=== PATIENT | female | born 1955 | race Caucasian/White ===

== ENCOUNTER 2021-07-08 10:52 | Inpatient (IN) | payer OTHER ==
[2021-07-08 11:29] LABS: Absolute Lymphocytes (CBC) 4.7 K/uL (0.7-4.9); Basophils % 0.1 % (0-1.3); Hematocrit 44.1 % (36.0-45.0); Lymphocytes % 40.1 % (15.3-44.8); MPV 8.9 fL (7.6-11.3); RBC Red Blood Cell Count 5.05 M/uL (3.86-4.86)
--- NOTE | 2021-07-08 11:31 | RAD REPORT ---
EXAM DESCRIPTION: CT - Ct Stroke Brain Wo Cont - 07/08/2021 11:06 am CLINICAL HISTORY: left sided weakness COMPARISON: HEAD BRAIN W O CONTRAST dated 02/27/2013; MRI BRAIN WITHOUT CONTRAST dated 02/28/2013 TECHNIQUE: Axial 5 millimeter thick images of the head were obtained without IV contrast. All CT scans are performed using dose optimization technique as appropriate and may include automated exposure control or mA/KV adjustment according to patient size. FINDINGS: No intracranial hemorrhage, mass, or cerebral edema. No acute cortical based infarction co nfirmed. In the midline right frontal lobe there is a 14 millimeter area of diminished attenuation at the falx. This may be a volume averaging affect. A similar finding was seen on 2013 imaging slightly smaller in size. This is not a location that would be expected to generate any motor sensory deficit . No extra-axial fluid collections. Blue matter-white matter differentiation is preserved.Atrophy ch anges are mild. Ventricles are in proportion to volume loss. Minimal scattered chronic ischemic leos es are evident. Arterial tree calcifications are present. Mastoid air cells are clear. There is a 13 millimeter sessile cyst, polyp or focal mucosal thickening along the floor of the right side sphenoid sinus. This has enlarged but is not new from 2013. Findings telephoned to Celestino Fitzpatrick 11:21 a.m. IMPRESSION: No intracranial hemorrhage is present. An acute cortical based infarction is not confirmed. A 14 millimeter area of diminished attenuation i n the medial right frontal lobe at the falx is probably not true ischemia. This location would not li honorio generate left motor sensory deficits. Ongoing concerns for acute CVA can be addressed with MR imaging or CT angio imaging.
[2021-07-08 11:33] LABS: Protime INR 1.02
--- NOTE | 2021-07-08 11:43 | RAD REPORT ---
EXAM DESCRIPTION: RAD - Chest Single View - 07/08/2021 11:18 am CLINICAL HISTORY: weakness, Stroke protocol chest film COMPARISON: February 2013 TECHNIQUE: AP portable chest image was obtained 07/08/2021 11:18 am . FINDINGS: Patchy alveolar opacities are present in the lateral mid upper left lung field. Chronic in terstitial pattern matches comparison. Failure and volume overload are not suspected. Heart and vasculature are normal. No measurable pleural effusion and no pneumothorax. No acute bony abnormality seen. No acute aortic findings suspected. IMPRESSION: Baseline chronic interstitial lung pattern with patchy airspace opacities in the lateral mid and upper left lung field. Pneumonia cannot be excluded and correlation is needed with any physical exam findings.
[2021-07-08 11:50] LABS: BUN Blood Urea Nitrogen 9 mg/dL (7-18); Bicarbonate 22 mmol/L (21-32); Creatine Phosphokinase 54 U/L (26-192); Glucose Level 119 mg/dL (74-106); Potassium 4.1 mmol/L (3.5-5.1); Sodium Level 142 mmol/L (136-145)
--- NOTE | 2021-07-08 12:36 | RAD REPORT ---
EXAM DESCRIPTION: CT - Head angio - 07/08/2021 12:19 pm CLINICAL HISTORY: left sided weakness TECHNIQUE: During dynamic enhancement using nonionic IV contrast, axial 1 millimeter thick images of the head were obtained. Sagittal and axial reconstruction images were generated using MIP technique and reviewed. All CT scans are performed using dose optimization technique as appropriate and may include automated exposure control or mA/KV adjustment according to patient size. COMPARISON: CT head same date FINDINGS: No aneurysm or vascular malformation identified. Major venous sinuses are patent. No stenosis, named branch occlusion, vasculitis or other significant vascular finding identifiable. I nternal carotid artery atherosclerotic calcifications are present without significant luminal narrowi ng. IMPRESSION: Negative CT angio head examination.
--- NOTE | 2021-07-08 12:38 | RAD REPORT ---
EXAM DESCRIPTION: CT - Neck Angio - 07/08/2021 12:19 pm CLINICAL HISTORY: left sided weakness TECHNIQUE: During dynamic enhancement using nonionic IV contrast, axial 2 mm thick images of the nec k were obtained. Sagittal and axial reconstruction images were generated using MIP technique and revi ewed. All CT scans are performed using dose optimization technique as appropriate and may include automated exposure control or mA/KV adjustment according to patient size. COMPARISON: CT head same date, CT angio head same date FINDINGS: Patient has an enlarged nodular thyroid gland not fully assessed on this CT angio study. No aneurysm or vascular malformation identified. No carotid or vertebral dissection. No aortic arch or great vessel origin abnormality seen. Vertebral artery origins unremarkable as well . No stenosis, vasculitis or other significant carotid artery finding. Left carotid bulb and proximal ICA calcifications do not cause luminal narrowing. Proximal left ICA is tortuous. No focal abnormali ty of either vertebral artery. Left vertebral artery is dominant. Basilar artery is normal. IMPRESSION: Negative CT angio neck examination for acute or significant finding.
[2021-07-08] MEDS ORDERED: ACETAMINOPHEN 325 MG TABLET ONE (13:56)
--- NOTE | 2021-07-08 14:07 | ER ---
Nurse's Notes [facility] Name: Maritza Jackson Age: 66 yrs Sex: Female : 1955 Arrival Date: 07/08/2021 Time: 10:55 Bed 15 Private MD: Diagnosis: Cerebral infarction, unspecified Presentation: 07/08 10:58 Chief complaint: Patient states: weakness since last night. currently only c/o numbness tr6 on left side. +drift noted EMS states: weakness on entire left side since last night. pt unsure what time due to power outage. Coronavirus screen: Vaccine status: Patient reports being unvaccinated. Ebola Screen: No symptoms or risks identified at this time. Initial Sepsis Screen: Does the patient meet any 2 criteria? No. Patient's initial sepsis screen is negative. Does the patient have a suspected source of infection? No. Patient's initial sepsis screen is negative. Risk Assessment: Do you want to hurt yourself or someone else? Patient reports no desire to harm self or others. Onset of symptoms was July 07, 2021. Care prior to arrival: None. Activity prior to arrival: None. 10:58 Method Of Arrival: EMS: [facility] tr6 10:58 Acuity: MAYA 2 tr6 Triage Assessment: 11:19 General: Appears in no apparent distress. comfortable, Behavior is calm, cooperative, tr6 appropriate for age. Pain: Denies pain. EENT: No deficits noted. Neuro: Level of Consciousness is awake, alert, obeys commands, Oriented to person, place, time, situation, Appropriate for age Metaphysician are weak on left Moves all extremities. Weakness in left hand(s) Speech is normal, Facial symmetry appears normal, Numbness in left hand, left arm and left leg Reports numbness in left side. Cardiovascular: No deficits noted. Respiratory: No deficits noted. GI: No deficits noted. : No deficits noted. Derm: No deficits noted. Musculoskeletal: Reports weakness in left side. Historical: - Home Meds: 11:02 losartan oral [Active]; Glimepiride Oral [Active]; tr6 - Immunization history:: Client reports having NOT received the Covid vaccine. Vaccine Information Sheet provided. - Social history:: Smoking status: unknown. Screenin:21 Abuse screen: Denies threats or abuse. Denies injuries from another. Nutritional tr6 screening: No deficits noted. Tuberculosis screening: No symptoms or risk factors identified. Fall Risk Fall in past 12 months (25 points). Assessment: 11:20 Reassessment: Patient appears in no apparent distress at this time. Patient is alert, aj2 oriented x 3, equal unlabored respirations, skin warm/dry/pink. Code Stroke called, patient transported to CT per protocol by music writer.. 11:32 Reassessment: Patient appears in no apparent distress at this time. Patient and/or aj2 family updated on plan of care and expected duration. Pain level reassessed. Patient is alert, oriented x 3, equal unlabored respirations, skin warm/dry/pink. Patient denies pain at this time. Patient states feeling better. General: Appears in no apparent distress. comfortable, obese. Pain: Denies pain. Neuro: No deficits noted. Level of Consciousness is awake, alert, obeys commands, Oriented to person, place, time, situation, Moves all extremities. Facial symmetry appears normal. Cardiovascular:. Cardiovascular: No deficits noted. Respiratory: Airway is patent. 12:09 Reassessment: Patient is alert, oriented x 3, equal unlabored respirations, skin aj2 warm/dry/pink. Reports JOHNSON 8/10; Celestino (provider notified), Reports taking anithypertensive and diabetes medication prior to arrival. nursing staff will continue to monitor.. General: Appears. 07/09 07:00 Reassessment: RECD REPORT FROM PIYUSH JO. 66YO WF P/W LEFT SIDED NUMBNESS. PT IS ER HOLD, bp SEE MEDITECH. Vital Signs: 07/08 10:58 BP 174 / 82; Pulse 90; Resp 18; Temp 97.6(O); Pulse Ox 96% on R/A; tr6 11:27 BP 119 / 70; Pulse 77; Resp 18; Weight 105.23 kg; Height 5 ft. 3 in. (160.02 cm); aj2 12:11 BP 102 / 54; Pulse 60; Resp 18; Temp 97.6; Pulse Ox 98% ; aj2 11:27 Body Mass Index 41.10 (105.23 kg, 160.02 cm) 2 NIH Stroke Scale Scores: 11:00 NIHSS Score: 6 tr6 14:23 NIHSS Score: 3 [facility] ED Course: 10:48 Initial lab(s) drawn, by me, sent to lab. Inserted saline lock: 20 gauge in right kj1 antecubital area, using aseptic technique. Blood collected. 10:55 Patient arrived in ED. tr6 10:56 Celestino Fitzpatrick PA is PHCP. [facility] 10:56 Joseph Villafana MD is Attending Physician. jmm 11:01 Triage completed. tr6 11:06 CT Stroke Brain w/o Contrast In Process Unspecified. EDMS 11:13 Deborah Lozano is Primary Nurse. aj2 11:18 Stroke CXR 1 View In Process Unspecified. EDMS 11:21 Patient has correct armband on for positive identification. Placed in gown. Bed in low tr6 position. Call light in reach. Side rails up X2. daughter at bedside. advertising columnist on. Pulse ox on. NIBP on. Diet: Patient is NPO. 11:32 No apparent distress. Laughing and speaking with daughter. aj2 11:32 No provider procedures requiring assistance completed. IV is patent, is intact. aj2 12:11 Arm band placed on. aj2 12:[address] In Process Unspecified. EDMS 12:19 CT Neck Angio In Process Unspecified. EDMS 14:06 Ross Mckeon MD is Hospitalizing Provider. [facility] 07/09 07:14 Primary Nurse role handed off by Deborah Lozano bp 07:14 Alexander Granados, RN is Primary Nurse. bp 07:23 Patient admitted, IV remains in place. bp Administered Medications: 07/08 13:29 Drug: Tylenol 650 mg Route: PO; aj2 15:30 Drug: Ativan (LORazepam) 0.5 mg Route: IVP; Site: right antecubital; aj2 Outcome: 14:06 Decision to Hospitalize by Provider. [facility] 07/09 07:23 Admitted to ER Hold. Please see [facility] for further documentation. bp Condition: stable Instructed on the need for admit. 15:43 Patient left the ED. bp NIH Stroke Scale - NIH Stroke Score Date: 07/08/2021 Time: 11:00 Total Score = 6 1a. Level of Consciousness (LOC) - 0(Alert) 1b. Level of Consciousness (LOC) (Month \T\ Age) - 0(Both) 1c. LOC Commands (Open \T\ Closes Eyes/Client Service Manager) - 0(Both) 2. Best Gaze (Lateral Gaze Paresis) - 0(Normal) 3. Visual Field Loss - 0(No visual loss) 4. Facial Palsy - 0(Normal) 5a. Left Arm: Motor (10-second hold) - 3(No effort against gravity) 5b. Right Arm: Motor (10-second hold) - 0(No drift) 6a. Left Leg: Motor (5-second hold - always test supine) - 2(Drift, some effort against gravity) 6b. Right Leg: Motor (5-second hold - always test supine) - 0(No drift) 7. Limb Ataxia (finger/nose \T\ heel/armstrong - test with eyes open) - 0(Absent) 8. Sensory Loss (pinprick arms/legs/face) - 1(Mild to moderate loss) 9. Best Language: Aphasia (description/naming/reading) - 0(No aphasia) 10. Dysarthria (speech clarity - read or repeat words) - 0(Normal) 11. Extinction and Inattention (visual/tactile/auditory/spatial/personal) - 0(No abnormality) Initials: tr6 NIH Stroke Scale - NIH Stroke Score Date: 07/08/2021 Time: 14:23 Total Score = 3 1a. Level of Consciousness (LOC) - 0(Alert) 1b. Level of Consciousness (LOC) (Month \T\ Age) - 0(Both) 1c. LOC Commands (Open \T\ Closes Eyes/Client Service Manager) - 0(Both) 2. Best Gaze (Lateral Gaze Paresis) - 0(Normal) 3. Visual Field Loss - 0(No visual loss) 4. Facial Palsy - 0(Normal) 5a. Left Arm: Motor (10-second hold) - 1(Drift) 5b. Right Arm: Motor (10-second hold) - 0(No drift) 6a. Left Leg: Motor (5-second hold - always test supine) - 1(Drift) 6b. Right Leg: Motor (5-second hold - always test supine) - 0(No drift) 7. Limb Ataxia (finger/nose \T\ heel/armstrong - test with eyes open) - 0(Absent) 8. Sensory Loss (pinprick arms/legs/face) - 1(Mild to moderate loss) 9. Best Language: Aphasia (description/naming/reading) - 0(No aphasia) 10. Dysarthria (speech clarity - read or repeat words) - 0(Normal) 11. Extinction and Inattention (visual/tactile/auditory/spatial/personal) - 0(No abnormality) Initials: petra Signatures: Dispatcher [employer] EDCelestino Alegria PA PA jmm Peltier, Brian, RN RN Lorie Mancia kj1 Leyda Dunbar RN RN tr6 Deborah Lozano aj2 Corrections: (The following items were deleted from the chart) 07/08 12:15 12:09 Reassessment: Patient is alert, oriented x 3, equal unlabored aj2 respirations, skin warm/dry/pink. Reports JOHNSON 06/01; Celestino (provider notified), nursing staff will continue to monitor.. aj2
--- NOTE | 2021-07-08 14:07 | EDPHYS ---
Physician Documentation [facility] Name: Maritza Jackson Age: 66 yrs Sex: Female : 1955 Arrival Date: 07/08/2021 Time: 10:55 Bed 15 Private MD: ED Physician Joseph Villafana HPI: 07/08 13:14 This 66 yrs old Female presents to ER via EMS with complaints of left sided jmm weakness. 13:14 The patient's problem is reported as weakness. Onset: The symptoms/episode jmm began/occurred acutely. 14:23 This is a 66-year-old female with history of diabetes mellitus and hypertension that jmm presents emerged department with complaints of left-sided weakness beginning around 7 PM last night. Symptoms initially began as some numbness around the left side of her chest and her left flank. This soon spread to the left arm and left leg. Patient denies any difficulty with speech, family states they have not appreciated any difficulty with speech. Patient denies chest pain but states having a slight headache.. Historical: - Home Meds: 11:02 losartan oral [Active]; Glimepiride Oral [Active]; tr6 - Immunization history:: Client reports having NOT received the Covid vaccine. Vaccine Information Sheet provided. - Social history:: Smoking status: unknown. ROS: 14:23 Constitutional: Negative for fever, chills, and weight loss, Cardiovascular: Negative jmm for chest pain, palpitations, and edema, Respiratory: Negative for shortness of breath, cough, wheezing, and pleuritic chest pain, Abdomen/GI: Negative for abdominal pain, nausea, vomiting, diarrhea, and constipation, Back: Negative for injury and pain, MS/Extremity: Negative for injury and deformity, Skin: Negative for injury, rash, and discoloration. 14:23 Neuro: Positive for numbness. 14:23 All other systems are negative. Exam: 14:23 Radiologist reports: Negative jmm 14:23 Constitutional: This is a well developed, well nourished patient who is awake, alert, and in no acute distress. Head/Face: atraumatic. Eyes: EOMI, no conjunctival erythema appreciated ENT: Moist Mucus Membranes Neck: Trachea midline, Supple Chest/axilla: Normal chest wall appearance and motion. Cardiovascular: Regular rate and rhythm. No edema appreciated Respiratory: Normal respirations, no respiratory distress appreciated Abdomen/GI: Non distended, soft Back: Normal ROM Skin: General appearance color normal MS/ Extremity: Moves all extremities, no obvious deformities appreciated, no edema noted to the lower extremities 14:23 Neuro: Orientation: is normal, Mentation: is normal, Memory: is normal. Vital Signs: 10:58 BP 174 / 82; Pulse 90; Resp 18; Temp 97.6(O); Pulse Ox 96% on R/A; tr6 11:27 BP 119 / 70; Pulse 77; Resp 18; Weight 105.23 kg; Height 5 ft. 3 in. (160.02 cm); aj2 12:11 BP 102 / 54; Pulse 60; Resp 18; Temp 97.6; Pulse Ox 98% ; aj2 11:27 Body Mass Index 41.10 (105.23 kg, 160.02 cm) 2 NIH Stroke Scale Scores: 11:00 NIHSS Score: 6 tr6 14:23 NIHSS Score: 3 [facility] MDM: 11:10 Patient medically screened. [facility] 14:02 Data reviewed: vital signs, nurses notes. Counseling: I had a detailed discussion with [facility] the patient and/or guardian regarding: the historical points, exam findings, and any diagnostic results supporting the discharge/admit diagnosis, lab results, radiology results, the need for further work-up and treatment in the hospital. ED course: I discussed the patient with Dr. Mckeon whom accepted the patient for admission. . 14:27 ED course: TPA was not administered due to prolonged period between symptom onset and [facility] patient arriving in the ER.. 07/08 10:57 Order name: Basic Metabolic Panel; Complete Time: 11:52 [facility] 07/08 10:57 Order name: CBC with Diff; Complete Time: 11:39 [facility] 07/08 10:57 Order name: CPK; Complete Time: 11:52 [facility] 07/08 10:57 Order name: Magnesium; Complete Time: 11:52 [facility] 07/08 10:57 Order name: Protime (+inr); Complete Time: 11:39 [facility] 07/08 10:57 Order name: Ptt, Activated; Complete Time: 11:39 [facility] 07/08 12:19 Order name: Glucose, Ancillary Testing [facility] 07/08 14:06 Order name: C-Reactive Protein; Complete Time: 14:41 EDMS 07/08 14:06 Order name: Ferritin; Complete Time: 14:41 EDMS 07/08 15:00 Order name: SARS-COV-2 RT PCR; Complete Time: 15:01 EDMS 07/08 20:58 Order name: Glucose, Ancillary Testing; Complete Time: 07:34 EDMS 07/09 03:31 Order name: CBC with Automated Diff; Complete Time: 07:34 EDMS 07/09 04:05 Order name: Comprehensive Metabolic Panel; Complete Time: 07:34 EDMS 07/08 10:57 Order name: CT Stroke Brain w/o Contrast; Complete Time: 11:39 [facility] 07/08 10:57 Order name: Stroke CXR 1 View; Complete Time: 11:45 [facility] 07/08 11:26 Order name: Head Angio CT; Complete Time: 13:01 [facility] 07/08 11:26 Order name: CT Neck Angio; Complete Time: 13:01 [facility] 07/08 13:18 Order name: MRI Stroke Protocol [facility] 07/08 14:07 Order name: Echo with Doppler [facility]OK 07/08 16:59 Order name: MRI; Complete Time: 16:59 EDMS 07/08 17:01 Order name: MRI; Complete Time: 17:01 EDMS 07/08 17:05 Order name: MRI; Complete Time: 17:06 EDMS 07/09 04:05 Order name: Lipid Profile; Complete Time: 07:34 EDMS 07/09 04:05 Order name: Magnesium; Complete Time: 07:34 EDMS 07/09 04:05 Order name: Thyroid Stimulating Hormone; Complete Time: 07:34 [facility] 07/09 08:29 Order name: US; Complete Time: 08:44 EDMS 07/09 12:43 Order name: Glucose, Ancillary Testing; Complete Time: 12:47 [facility] 07/08 10:57 Order name: EKG; Complete Time: 10:58 07/08 10:57 Order name: Accucheck; Complete Time: 12:07 [facility] 07/08 10:57 Order name: Cardiac monitoring; Complete Time: 11:36 07/08 10:57 Order name: EKG - Nurse/Tech; Complete Time: 11:37 07/08 10:57 Order name: IV Saline Lock; Complete Time: 11:36 jm07/08 10:57 Order name: Labs collected and sent; Complete Time: 11:36 [facility] 07/08 10:57 Order name: NPO; Complete Time: 12:07 [facility] 07/08 10:57 Order name: O2 Per Protocol; Complete Time: 14:01 [facility] 07/08 10:57 Order name: O2 Sat Monitoring; Complete Time: 14:01 [facility] 07/08 10:57 Order name: Stroke Swallow Screen; Complete Time: 14:01 [facility] 07/08 14:02 Order name: CONS Physician Consult EDMS Administered Medications: 13:29 Drug: Tylenol 650 mg Route: PO; aj2 15:30 Drug: Ativan (LORazepam) 0.5 mg Route: IVP; Site: right antecubital; aj2 Disposition: 07/09 16:34 Co-signature as Attending Physician, Joseph Villafana MD I agree with the assessment and kdr plan of care. Disposition Summary: 07/08/21 14:06 Hospitalization Ordered Hospitalization Status: Inpatient Admission [facility] Provider: Ross Mckeon Condition: Stable jmm Problem: new jmm Symptoms: are unchanged jm Bed/Room Type: Standard [facility] Location: Telemetry/MedSurg (Inpatient)(07/09/21 14:31) ja1 Room Assignment: [facility](07/09/21 14:31) ja Diagnosis - Cerebral infarction, unspecified [facility] Forms: - Medication Reconciliation Form jm - SBAR form [facility] NIH Stroke Scale - NIH Stroke Score Date: 07/08/2021 Time: 11:00 Total Score = 6 1a. Level of Consciousness (LOC) - 0(Alert) 1b. Level of Consciousness (LOC) (Month \T\ Age) - 0(Both) 1c. LOC Commands (Open \T\ Closes Eyes/Chipper Feeder) - 0(Both) 2. Best Gaze (Lateral Gaze Paresis) - 0(Normal) 3. Visual Field Loss - 0(No visual loss) 4. Facial Palsy - 0(Normal) 5a. Left Arm: Motor (10-second hold) - 3(No effort against gravity) 5b. Right Arm: Motor (10-second hold) - 0(No drift) 6a. Left Leg: Motor (5-second hold - always test supine) - 2(Drift, some effort against gravity) 6b. Right Leg: Motor (5-second hold - always test supine) - 0(No drift) 7. Limb Ataxia (finger/nose \T\ heel/armstrong - test with eyes open) - 0(Absent) 8. Sensory Loss (pinprick arms/legs/face) - 1(Mild to moderate loss) 9. Best Language: Aphasia (description/naming/reading) - 0(No aphasia) 10. Dysarthria (speech clarity - read or repeat words) - 0(Normal) 11. Extinction and Inattention (visual/tactile/auditory/spatial/personal) - 0(No abnormality) Initials: tr6 NIH Stroke Scale - NIH Stroke Score Date: 07/08/2021 Time: 14:23 Total Score = 3 1a. Level of Consciousness (LOC) - 0(Alert) 1b. Level of Consciousness (LOC) (Month \T\ Age) - 0(Both) 1c. LOC Commands (Open \T\ Closes Eyes/Chipper Feeder) - 0(Both) 2. Best Gaze (Lateral Gaze Paresis) - 0(Normal) 3. Visual Field Loss - 0(No visual loss) 4. Facial Palsy - 0(Normal) 5a. Left Arm: Motor (10-second hold) - 1(Drift) 5b. Right Arm: Motor (10-second hold) - 0(No drift) 6a. Left Leg: Motor (5-second hold - always test supine) - 1(Drift) 6b. Right Leg: Motor (5-second hold - always test supine) - 0(No drift) 7. Limb Ataxia (finger/nose \T\ heel/armstrong - test with eyes open) - 0(Absent) 8. Sensory Loss (pinprick arms/legs/face) - 1(Mild to moderate loss) 9. Best Language: Aphasia (description/naming/reading) - 0(No aphasia) 10. Dysarthria (speech clarity - read or repeat words) - 0(Normal) 11. Extinction and Inattention (visual/tactile/auditory/spatial/personal) - 0(No abnormality) Initials: petra Signatures: Dispatcher [employer] EDJoseph Cazares MD MD kdr Mickail, Joel, PA PA jmm Garcia, Cindy, RN RN cg Aguilar, Jose, RN RN ja1 Leyda Dunbar RN RN tr6 Deborah Lozano2 Corrections: (The following items were deleted from the chart) 07/08 13:54 13:17 CORONAVIRUS+MR.LAB.BRZ ordered. EDOK EDOK 22:40 14:06 Telemetry/MedSurg (Inpatient) [facility] 22:40 14:06 [facility] 07/09 14:31 07/08 22:40 [facility] ER [place] [id number] 07/09 14:31 07/08 22:40 [facility]
--- NOTE | 2021-07-08 14:14 | P.HP ---
Certification for Inpatient Patient admitted to: Observation With expected LOS: <2 Midnights Practitioner: I am a practitioner with admitting privileges, knowledge of patient current condition, hospital course, and medical plan of care. Services: Services provided to patient in accordance with Admission requirements found in Title 42 Section 412.3 of the Code of Federal Regulations Patient History Date of Service: 07/08/21 Reason for admission: Left-sided weakness, possible CVA History of Present Illness: 66-year-old female HTN, trw-gebyeaw-yexhwdydq diabetes mellitus type 2, prior TIA. Presents to ED with left upper and lower extremity numbness and weakness since 7 PM yesterday. Patient states she suddenly noticed numbness and weakness in these extremities, including her neck and chest/flank area. She reports just getting over COVID. She began to have symptoms diagnosed approximately 2 weeks ago. She otherwise denies any other numbness/tingling, no vision changes, no change in urinary/bowel habits, no incontinence. She does not feel like she has been having any difficulty swallowing or slurring of her speech, however she states her daughter said she was talking a little "slow" today. She does report some unsteadiness on her feet today. Work-up in the ED, including CT and CTA head are negative for any acute findings. ER provider has asked for admission for further evaluation. Allergies No Known Allergies Allergy (Unverified 02/27/13 21:09) Home Medications: Ciprofloxacin HCl [Cipro*] 500 mg PO BID #14 tab 02/28/13 metroNIDAZOLE [Flagyl*] 500 mg PO Q8H #30 tablet 12/25/13 - Past Medical/Surgical History -: HTN -: DM 2, [id number]-[id number]-fealikopj -: Prior TIA Past Surgical History: Patient denies surgical history - Family History Family History: Reviewed- Non-Contributory (Patient reports she has an orphan, does not know her family history) - Social History Smoking Status: Current every day smoker ([id number]) Alcohol use: No CD- Drugs: No Caffeine use: Yes Place of Residence: Home Review of Systems 10-point ROS is otherwise unremarkable Physical Examination - Studies Laboratory Data (last 24 hrs) 07/08/21 11:20: PT 11.7, INR 1.02, APTT 28.3 07/08/21 11:20: WBC 11.80 H, Hgb 14.7, Hct 44.1, Plt Count 417 H 07/08/21 11:20: Sodium 142, Potassium 4.1, BUN 9, Creatinine 0.59, Glucose 119 H, Magnesium 2.0 Assessment and Plan - Advance Directives Does patient have a Living Will: No Does patient have a Durable POA for Healthcare: No Physician Review Additional Text: Physical exam GEN: Alert, oriented x3, NAD HEENT: Normal conjunctiva, sclera anicteric CV: Regular rate and rhythm, no edema Pulm: Nonlabored respiration on room air ABD: Soft, nontender, nondistended MSK: No joint tenderness Integumentary: No rashes Neuro: Normal affect. Speech slightly slurred, LUE/LLE: 4/5. Significantly diminished sensation along left neck, left upper arm, left flank/thoracic wall, left upper thigh Problem list Acute onset left sided weakness and decreased sensation DM 2, zjx-fzjamsh-jxgfxhrzh prior TIA Hypertension Obesity Nicotine dependence CT, CTA negative for acute findings obtain MRI to rule out stroke Neurology consulted Continue with aspirin, Plavix, statin, folic acid at this time PT consulted Bedside swallow screen ordered, patient n.p.o. until she passes this Speech therapy consulted Monitor on telemetry Covid test pending Patient recently with Covid positive test, increasing risk for stroke Symptoms may be due to CVA versus complex migraine Code: full Dispo: anticipate dc home in 1-2 days. Time Spent Managing Pts Care (In Minutes): 60
[2021-07-08 14:39] LABS: C-Reactive Protein 18.8 mg/L (<3.00); Ferritin 385.4 ng/mL (8-388)
[2021-07-08] MEDS ORDERED: LORazepam 2 MG/ML VIAL ONE (15:57)
--- NOTE | 2021-07-08 16:58 | RAD REPORT ---
EXAM DESCRIPTION: MRI - Brain W/Wo Cont - 07/08/2021 4:50 pm CLINICAL HISTORY: left sided weakness COMPARISON: MRA Head Wo Cont dated 07/08/2021; MRI BRAIN WITHOUT CONTRAST dated 02/28/2013; MRA HEAD W O CONTRAST dated 02/27/2013; Head angio dated 07/08/2021; Ct Stroke Brain Wo Cont dated 07/08/2021 FINDINGS: Small acute infarcts in the cerebral hemisphere centered primarily in the right parietal l obe involving both cortical and subcortical locations with other small cortical foci of diffusion res tricted in the right frontal lobe. This is in a watershed type distribution. No significant white mat ter disease. No mass effect or midline shift. No hemorrhage is seen. Mucous retention cysts in the ri ght sphenoid sinus. No abnormal enhancement. Mild paranasal sinus thickening. IMPRESSION: Right cerebral hemisphere acute infarcts, predominantly right parietal lobe. There are s ome other small foci of diffusion restriction in the more anterior right frontal lobe. These are near the watershed regions.
--- NOTE | 2021-07-08 17:00 | RAD REPORT ---
EXAM DESCRIPTION: MRI - MRA Head Wo Cont - 07/08/2021 4:49 pm CLINICAL HISTORY: left sided weakness COMPARISON: MRI BRAIN WITHOUT CONTRAST dated 02/28/2013; MRA HEAD W O CONTRAST dated 02/27/2013 FINDINGS: No hemodynamically significant stenosis involving the [place] identified. The middle cerebral arteries are patent bilaterally. The anterior cerebral artery is are patent. The posterior circulation is intact. Eighty type left LOAN CONSULTANT is present. No aneurysm is seen. IMPRESSION: No flow limiting stenosis involving the [place] of [place]. No aneurysm.
--- NOTE | 2021-07-08 17:05 | RAD REPORT ---
EXAM DESCRIPTION: MRI - MRA Neck W/Wo Cont - 07/08/2021 4:49 pm CLINICAL HISTORY: left sided weakness COMPARISON: No comparisons FINDINGS: Question moderate to severe right proximal ICA stenosis. There is some artifact at the com mon carotid bifurcation on the right side. The left carotid system is widely patent. The vertebral ar teries are widely patent. The common carotid arteries are widely patent. IMPRESSION: Question moderate to severe right proximal ICA stenosis. This can be confirmed with thakkar tid ultrasound.
[2021-07-08] MEDS ORDERED: ONDANSETRON 4 MG/2 ML VIAL IV PRN (19:22)
[2021-07-08] MEDS: NA CHLORIDE 0.9% 1,000 ML IV SCH (19:22)
[2021-07-08] MEDS: INSULIN -REGULAR HUMAN 50 UNIT/0.5 ML ML SQ SCH ×2 (19:22→21:00)
[2021-07-08 20:40] VITALS: BMI 42.2
[2021-07-08] MEDS: ATORVASTATIN 20 MG TAB PO SCH (21:00)
[2021-07-08] MEDS ORDERED: ATORVASTATIN 20 MG TAB ONE (21:39)
[2021-07-08] MEDS ORDERED: NA CHLORIDE 0.9% 1,000 ML ONE (21:40)
[2021-07-08] MEDS ORDERED: ATORVASTATIN 10 MG TAB ONE (21:46)
[2021-07-09 03:24] LABS: Absolute Lymphocytes (CBC) 5.4 K/uL (0.7-4.9); Basophils % 1.2 % (0-1.3); Hematocrit 41.9 % (36.0-45.0); Lymphocytes % 42.8 % (15.3-44.8); MPV 9.5 fL (7.6-11.3)
[2021-07-09 04:05] LABS: ALT/SGPT 21 U/L (12-78); AST/SGOT 17 U/L (15-37); Albumin 2.7 g/dL (3.4-5.0); Alkaline Phosphatase 83 U/L (45-117); BUN Blood Urea Nitrogen 10 mg/dL (7-18); Bicarbonate 26 mmol/L (21-32); Bilirubin Total 0.6 mg/dL (0.2-1.0); Glucose Level 105 mg/dL (74-106); HDL Cholesterol 31 mg/dL (40-60); LDL Cholesterol, Calculated 65 (<130); Magnesium 2.2 mg/dL (1.8-2.4); Potassium 4.1 mmol/L (3.5-5.1); Protein, Total 6.7 g/dL (6.4-8.2); Sodium Level 144 mmol/L (136-145)
[2021-07-09] MEDS: INSULIN -REGULAR HUMAN 50 UNIT/0.5 ML ML SQ SCH ×4 (07:30→20:40)
--- NOTE | 2021-07-09 08:14 | EKG ---
Test Date: 2021-07-08 Test Time: 11:42:27 Dry House Attendant: STEFF MEASUREMENT RESULTS: Intervals: Rate: 73 [place]: 158 QRSD: 84 QT: 404 QTc: 445 [place]: P: 33 [place]: 158 QRS: 37 T: 31 INTERPRETIVE STATEMENTS: Normal sinus rhythm Normal ECG Compared to ECG 02/27/2013 21:02:53 No significant changes Electronically Signed On 07-09-21 08:12:59 CDT by Preet Tobin
--- NOTE | 2021-07-09 08:29 | RAD REPORT ---
EXAM DESCRIPTION: US - CP - 07/09/2021 12:40 am CLINICAL HISTORY: L sided weakness COMPARISON: MRA Neck W/Wo Cont dated 07/08/2021 TECHNIQUE: Real-time sonographic evaluation of bilateral carotid and vertebral systems was performed . Blue scale and Doppler interrogation were performed with waveform tracing bilaterally. FINDINGS: Exam is technically limited. Patient was unable to fully cooperate with the examination. Normal high resistance waveforms are noted in both external carotid arteries. The common carotid noah keith and internal carotid arteries show normal low resistance waveforms. Plaquing changes are identifiable in each carotid bulb without visual evidence for significant lumina l narrowing. Right external carotid atherosclerotic changes are present. Any external carotid artery stenosis is generally of no clinical significance. Peak systolic and end diastolic velocity values an d the ICA/CCA ratios are in the non-hemodynamically significant range. Antegrade flow seen in both vertebral arteries. Velocity values and ratios were recorded and are retained in the patient's imaging records. IMPRESSION: No significant atherosclerotic changes noted. No evidence of a hemodynamically significant stenosis.
[2021-07-09] MEDS: NA CHLORIDE 0.9% 1,000 ML IV SCH (08:42)
[2021-07-09] MEDS: CLOPIDOGREL 75 MG TABLET PO SCH (09:00)
[2021-07-09] MEDS ORDERED: NA CHLORIDE 0.9% 1,000 ML ONE (09:35)
[2021-07-09] MEDS ORDERED: CLOPIDOGREL 75 MG TABLET ONE (09:35)
--- NOTE | 2021-07-09 17:18 | P.PN ---
Subjective Date of Service: 07/09/21 Chief Complaint: Left-sided weakness, possible CVA Subjective: Improving (Feels slight improvement in weakness, working with physical therapy, has balance issues, scared of falling) Review of Systems 10-point ROS is otherwise unremarkable Physical Examination - Vital Signs Temperature: 98.2 F Blood Pressure: 150/85 Pulse: 61 Respirations: 22 Pulse Ox (%): 96 Assessment & Plan Physician Review Additional Text: Physical exam GEN: Alert, oriented x3, NAD HEENT: Normal conjunctiva, sclera anicteric CV: Regular rate and rhythm, no edema Pulm: Nonlabored respiration on room air ABD: Soft, nontender, nondistended Neuro: Normal affect. Speech slightly slurred, LUE/LLE: 4/5 strength. Significantly diminished sensation along left neck, left upper arm, left flank/thoracic wall, left upper thigh Problem list Acute onset left sided weakness and decreased sensation secondary to acute CVA DM 2, dfo-dwiewdw-qmyxsegmx prior TIA Hypertension Obesity Nicotine dependence CT, CTA negative for acute findings MRI consistent with acute CVA Neurology consulted Continue with aspirin, Plavix, statin, folic acid at this time PT consulted Speech therapy consulted Monitor on telemetry Patient seems like a good candidate for rehab, inpatient rehab consulted Code: full Dispo: inpatient rehab consulted, anticipate dc in 1-2 days Time Spent Managing Pts Care (In Minutes): 35
[2021-07-09] MEDS: ATORVASTATIN 20 MG TAB PO SCH (20:41)
--- NOTE | 2021-07-10 02:29 | CON ---
Reason For Consultation: Consultation called because of stroke. History Of Present Illness: Ms. Jackson is a 66-year-old right-handed patient with insulin-de pendent diabetes mellitus, prior transient ischemic attack, hypertension, and recent COVID-19 infecti on, who comes to [facility] with stroke-like symptoms. Two nights ago, she was at home, dev eloped sudden numbness in the left side of her body, face, arm, leg. This was in the evening around 7 p.m. She thought she was resting funny on that side, did not seek medical attention. She went to sleep, woke up the next morning and tried to walk and fell because the left leg gave away. At [facility], she had significant weakness in the left upper and lower extremity with numbness. Her NIH Stroke Scale was [address] scan showed no acute findings; however, brain MRI identified a right parietal lobe stroke with some involvement of the right frontal lobe watershed area. The MRA suggested moderate stenosis in the right proximal internal carotid artery; however, the carotid Dopp ler study did not support that and CT angiogram also did not support the vascular finding. Since her hospitalization, the patient has noted some fxjy-lq-[id number] improvement in the left-sided strength. There is persistent numbness in the left face, arm, leg and there is more weakness in the left arm than leg and there is also slight weakness on the left face. Past Medical History: As noted. Allergies: NO KNOWN DRUG ALLERGIES. Medications: At home, ciprofloxacin 500 mg twice daily, metronidazole 500 mg every 8 hours. She is not on anticoagulation and had COVID-19 symptoms beginning on May 23 or May 24. Family History: Not known. Social History: Patient smokes with a [id number] history of smoking and drinks caffeinated Giraffe Friend es. Denies alcohol or IV drug use. Surgical History: No surgical history. Review of Systems: As noted, she had COVID recently. Otherwise, no recent fevers, chills, nausea, vomiting, myalgias, a rthralgias, rash, headache, weight change. No active psychiatric issues. No gastrointestinal, genit ourinary issues and no other positives other than stated in 10-point systems review. Physical Examination: Vital Signs: Blood pressure 150/85, up to 170 systolic; respiratory rate 16 to 20; pulse 60 to 70; t emperature max 99.4; oxygen saturation 94% on room air. Weight 231 pounds, height 5 feet 2 inches, B [place] 42.3. General: Ms. Jackson is lying comfortably in bed in the emergency room. She is in no acute distress. HEENT: She is normocephalic, atraumatic. Sclerae anicteric. Oropharynx is moist and pink. Neck: Supple. Chest: Clear. Heart: Regular. Extremities: Show no edema, cyanosis, or clubbing. Neurologic: She is alert and oriented to situation, place, and person. She has no expressive or rec eptive aphasias. Cranial nerves remarkable for subtle decrease in the left nasolabial fold with good excursions. Decreased light touch and temperature in the left face compared to the right face, othe rwise intact. Tongue midline and palate midline. Motor examination: Her left upper extremity is 4/ 5 proximally and distally. Right upper extremity 5/5. Left lower extremity 5-/5 proximally and dist ally, right 5/5. Sensory examination: Her left upper and lower extremity decreased to light touch a nd temperature compared to the right upper and lower extremity. Coordination intact in the right and left upper and lower extremities. Reflexes symmetric in the upper and lower extremities. NIH strok e scale is 6. With ambulation, she tends to drift to the left and requires moderate assistance. Laboratory Studies: White blood cell count slightly elevated to 12.6 with neutrophils 39.3%. Coagul ation panel is normal. Chemistries are unremarkable except for slightly elevated chloride of 115, gl ucose ranged from 80 to 199, albumin 2.7. HDL cholesterol 31, LDL cholesterol 65. TSH 2.070. She i s COVID-19 positive. Assessment: Ms. Jackson is a 66-year-old patient with multiple reasons for stroke including COVID posi tivity, being off any anticoagulation, hypertension, diabetes mellitus, also class 2 obesity, and she has proven stroke on MRI of the brain and right subcortical stroke with left-sided weakness, numbnes s, and incoordination. Plan: Admit patient to inpatient rehabilitation unit. She has already been cleared for her swallow by Speech, but she should still continue with Speech to help regain full functioning in the oropharyn x, and with Speech, she needs Physical Therapy to help with her balance, coordination, gait, and endu kallie, and Occupational Therapy to help with improving and restoring activities of daily living inclu ding upper and lower body dressing, bathing and other activities. She will have her blood sugar management addressed carefully and hypertension managed as well. Her c holesterol panel shows a good LDL, which is less than 70. The patient as noted will be admitted to i npatient rehabilitation unit for aggressive therapy. SEAMUS/JEANNETTE Voice ID: [id number] Report ID: [id number]
--- NOTE | 2021-07-10 06:20 | P.PN ---
Subjective Date of Service: 07/10/21 Chief Complaint: Left-sided weakness, possible CVA Subjective: Improving (Feels like she has had some slight improvement of her weakness, still very unsteady on her feet. Still continues with decreased sensation. Eating/drinking without difficulty) Review of Systems 10-point ROS is otherwise unremarkable Physical Examination - Vital Signs Temperature: 98.7 F Blood Pressure: 138/62 Pulse: 79 Respirations: 20 Pulse Ox (%): 95 Assessment & Plan Physician Review Additional Text: Physical exam GEN: Alert, oriented x3, NAD HEENT: Normal conjunctiva, sclera anicteric CV: Regular rate and rhythm, no edema Pulm: Nonlabored respiration on room air ABD: Soft, nontender, nondistended Neuro: Normal affect. LUE/LLE: 5-/5 strength. Decreased sensation to light touch in the lower left jaw/neck area. Decreased sensation to light touch in her left upper and lower extremity, left chest/left flank area Significantly diminished sensation along left neck, left upper arm, left flank/thoracic wall, left upper thigh Problem list Acute onset left sided weakness and decreased sensation secondary to acute CVA DM 2, zqf-pwwefmc-iwafufsyv prior TIA Hypertension Obesity Nicotine dependence CT, CTA negative for acute findings MRI consistent with acute CVA Neurology consulted Continue with aspirin, Plavix, statin, folic acid at this time PT consulted Speech therapy consulted - pt did well Monitor on telemetry - no events so far PT recommends patient for inpatient rehab, patient would like to pursue inpatient rehab as well director of therapy services consulted Code: full Dispo: Hopeful to get insurance approval for inpatient rehab Time Spent Managing Pts Care (In Minutes): 35
[2021-07-10 06:47] LABS: Hematocrit 41.3 % (36.0-45.0); MPV 8.6 fL (7.6-11.3); RBC Red Blood Cell Count 4.75 M/uL (3.86-4.86)
[2021-07-10 07:07] LABS: BUN Blood Urea Nitrogen 9 mg/dL (7-18); Bicarbonate 26 mmol/L (21-32); Glucose Level 128 mg/dL (74-106); Potassium 3.9 mmol/L (3.5-5.1); Sodium Level 143 mmol/L (136-145)
[2021-07-10] MEDS: INSULIN -REGULAR HUMAN 50 UNIT/0.5 ML ML SQ SCH ×4 (07:30→20:17)
[2021-07-10] MEDS: CLOPIDOGREL 75 MG TABLET PO SCH (08:17)
[2021-07-10] MEDS: FOLIC ACID 1 MG TABLET PO SCH (08:17)
[2021-07-10] MEDS: ASPIRIN EC 81 MG TAB PO SCH (08:17)
[2021-07-10] MEDS: ATORVASTATIN 20 MG TAB PO SCH (20:17)
[2021-07-10] MEDS ORDERED: HYDRALAZINE HCL 20 MG/ML VIAL IV PRN (21:14)
[2021-07-11 05:07] LABS: BUN Blood Urea Nitrogen 7 mg/dL (7-18); Bicarbonate 26 mmol/L (21-32); Glucose Level 135 mg/dL (74-106); Magnesium 1.9 mg/dL (1.8-2.4); Potassium 3.6 mmol/L (3.5-5.1); Sodium Level 142 mmol/L (136-145)
--- NOTE | 2021-07-11 06:16 | P.PN ---
Subjective Date of Service: 07/11/21 Chief Complaint: Left-sided weakness, possible CVA Subjective: Improving (feels strenght is slightly improving. more sensation to left lower face as well, no new complaints) Review of Systems 10-point ROS is otherwise unremarkable Physical Examination - Vital Signs Temperature: 97.9 F Blood Pressure: 138/61 Pulse: 89 Respirations: 20 Pulse Ox (%): 95 Assessment & Plan Physician Review Additional Text: Physical exam GEN: Alert, oriented x3, NAD CV: Regular rate and rhythm, no edema Pulm: Nonlabored respiration on room air ABD: Soft, nontender, nondistended Neuro: Normal affect. LUE: 5-/5, LLE: 4+/5 with some incoordination Decreased sensation to light touch in the lower left jaw/neck area. Decreased sensation to light touch in her left upper and lower extremity, left chest/left flank area Problem list Acute onset left sided weakness and decreased sensation secondary to acute CVA DM 2, yja-cekrjxc-cfikvqvpv prior TIA Hypertension Obesity Nicotine dependence recent COVID-[address], CTA negative for acute findings MRI consistent with acute CVA Neurology consulted Continue with aspirin, Plavix, statin, folic acid at this time PT consulted Speech therapy consulted - pt did well Monitor on telemetry - no events so far PT recommends patient for inpatient rehab, patient would like to pursue inpatient rehab as well dean of student services consulted patient otherwise asymptomatic from COVID-19 Code: full Dispo: dc to inpatient rehab, pending insurance approval Time Spent Managing Pts Care (In Minutes): 35
[2021-07-11] MEDS: INSULIN -REGULAR HUMAN 50 UNIT/0.5 ML ML SQ SCH ×4 (07:30→20:02)
[2021-07-11] MEDS ORDERED: POTASSIUM CL SA 10 MEQ TAB PO ONE (08:00)
[2021-07-11] MEDS: FOLIC ACID 1 MG TABLET PO SCH (08:34)
[2021-07-11] MEDS: CLOPIDOGREL 75 MG TABLET PO SCH (08:35)
[2021-07-11] MEDS: ASPIRIN EC 81 MG TAB PO SCH (08:36)
[2021-07-11] MEDS: ATORVASTATIN 20 MG TAB PO SCH (19:53)
[2021-07-12 06:31] LABS: Hematocrit 41.4 % (36.0-45.0); MPV 9.2 fL (7.6-11.3); RBC Red Blood Cell Count 4.74 M/uL (3.86-4.86)
[2021-07-12 07:05] LABS: BUN Blood Urea Nitrogen 10 mg/dL (7-18); Bicarbonate 25 mmol/L (21-32); Glucose Level 135 mg/dL (74-106); Magnesium 2.1 mg/dL (1.8-2.4); Potassium 3.8 mmol/L (3.5-5.1); Sodium Level 141 mmol/L (136-145)
[2021-07-12] MEDS: INSULIN -REGULAR HUMAN 50 UNIT/0.5 ML ML SQ SCH ×2 (07:30→12:11)
--- NOTE | 2021-07-12 08:18 | ECHO ---
HEIGHT: 5 ft 2 in WEIGHT: 231 lb 0 oz DATE OF STUDY: 07/09/[address]: Ross Mckeon MD 2-DIMENSIONAL: YES M.MODE: YES DOPPLER: YES COLOR FLOW: YES TDS: YES PORTABLE: NO DEFINITY: NO BUBBLE STUDY: NO DIAGNOSIS: STROKE CARDIAC HISTORY: CATHERIZATION: NO SURGERY: NO PROSTHETIC VALVE: NO PACEMAKER: NO MEASUREMENTS (cm) DIASTOLIC (NORMALS) SYSTOLIC (NORMALS) IVSd 1.3 (0.6-1.2) LA Diam 3.0 (1.9-4.0) LVEF 59% LVIDd 4.0 (3.5-5.7) LVIDs 2.7 (2.0-3.5) %FS 31% LVPWd 1.3 (0.6-1.2) Ao Diam 2.8 (2.0-3.7) 2 DIMENSIONAL ASSESSMENT: RIGHT ATRIUM: NORMAL LEFT ATRIUM: NORMAL RIGHT VENTRICLE: NORMAL LEFT VENTRICLE: NORMAL TRICUSPID VALVE: NORMAL MITRAL VALVE: NORMAL PULMONIC VALVE: NORMAL AORTIC VALVE: NORMAL PERICARDIAL EFFUSION: NONE AORTIC ROOT: NORMAL LEFT VENTRICULAR WALL MOTION: NORMAL DOPPLER/COLOR FLOW: NORMAL COMMENTS: TECHNICALLY DIFFICULT STUDY. GROSSLY NORMAL LEFT VENTRICULAR EJECTION FRACTION AND SIZE. NO WALL MOTION ABNORMALITY. NO THROMBUS. NO EFFUSION. NO VEGETATION. TECHNOLOGIST: Joceline GRESHAM
[2021-07-12] MEDS ORDERED: POTASSIUM 25 MEQ EFFERV TAB PO ONE (08:35)
[2021-07-12] MEDS: ASPIRIN EC 81 MG TAB PO SCH (09:13)
[2021-07-12] MEDS: FOLIC ACID 1 MG TABLET PO SCH (09:13)
[2021-07-12] MEDS: CLOPIDOGREL 75 MG TABLET PO SCH (09:13)
[2021-07-12 09:36] VITALS: O2SAT 94
[2021-07-12 13:17] VITALS: BP 100/57; TEMP 98.3
--- NOTE | 2021-07-12 18:07 | P.DS ---
Admission Date: 07/08/21 Discharge Date: 07/12/21 Disposition: TRANSFER TO INPATIENT REHAB Discharge Condition: GOOD Reason for Admission: Left-sided weakness, possible CVA Consultations: Neurology - Dr. Deng Procedures: CXR (07/08): IMPRESSION: Baseline chronic interstitial lung pattern with patchy airspace opacities in the lateral mid and upper left lung field. Pneumonia cannot be excluded and correlation is needed with any physical exam findings. CT Brain (07/08): IMPRESSION: No intracranial hemorrhage is present. An acute cortical based infarction is not confirmed. A 14 millimeter area of diminished attenuation in the medial right frontal lobe at the falx is probably not true ischemia. This location would not likely generate left motor sensory deficits. Ongoing concerns for acute CVA can be addressed with MR imaging or CT angio imaging. CTA Head (07/08): FINDINGS: No aneurysm or vascular malformation identified. Major venous sinuses are patent. No stenosis, named branch occlusion, vasculitis or other significant vascular finding identifiable. Internal carotid artery atherosclerotic calcifications are present without significant luminal narrowing. IMPRESSION: Negative CT angio head examination. CTA Neck (07/08): FINDINGS: Patient has an enlarged nodular thyroid gland not fully assessed on this CT angio study. No aneurysm or vascular malformation identified. No carotid or vertebral dissection. No aortic arch or great vessel origin abnormality seen. Vertebral artery origins unremarkable as well. No stenosis, vasculitis or other significant carotid artery finding. Left carotid bulb and proximal ICA calcifications do not cause luminal narrowing. Proximal left ICA is tortuous. No focal abnormality of either vertebral artery. Left vertebral artery is dominant. Basilar artery is normal. IMPRESSION: Negative CT angio neck examination for acute or significant finding. MRI Brain (07/08): FINDINGS: Small acute infarcts in the cerebral hemisphere centered primarily in the right parietal lobe involving both cortical and subcortical locations with other small cortical foci of diffusion restricted in the right frontal lobe. This is in a watershed type distribution. No significant white matter disease. No mass effect or midline shift. No hemorrhage is seen. Mucous retention cysts in the right sphenoid sinus. No abnormal enhancement. Mild paranasal sinus thickening. IMPRESSION: Right cerebral hemisphere acute infarcts, predominantly right p arietal lobe. There are some other small foci of diffusion restriction in the more anterior right frontal lobe. These are near the watershed regions. MRA Brain (07/08): FINDINGS: No hemodynamically significant stenosis involving the [place] identified. The middle cerebral arteries are patent bilaterally. The anterior cerebral artery is are patent. The posterior circulation is intact. Eighty type left TAXATION ECONOMIST is present. No aneurysm is seen. IMPRESSION: No flow limiting stenosis involving the [place]. No aneurysm. MRA Neck (07/08): FINDINGS: Question moderate to severe right proximal ICA stenosis. There is some artifact at the common carotid bifurcation on the right side. The left carotid system is widely patent. The vertebral arteries are widely patent. The common carotid arteries are widely patent. IMPRESSION: Question moderate to severe right proximal ICA stenosis. This can be confirmed with carotid ultrasound. Carotid U/S (07/08): FINDINGS: Exam is technically limited. Patient was unable to fully cooperate with the examination. Normal high resistance waveforms are noted in both external carotid arteries. The common carotid arteries and internal carotid arteries show normal low resistance waveforms. Plaquing changes are identifiable in each carotid bulb without visual evidence for significant luminal narrowing. Right external carotid atherosclerotic changes are present. Any external carotid artery stenosis is generally of no clinical significance. Peak systolic and end diastolic velocity values and the ICA/CCA ratios are in the non-hemodynamically significant range. Antegrade flow seen in both vertebral arteries. Velocity values and ratios were recorded and are retained in the patient's imaging records. IMPRESSION: No significant atherosclerotic changes noted. No evidence of a hemodynamically significant stenosis. Echo (07/09): Technically difficult study. Grossly normal LVEF: 59% and size. no wall motion abnormality. no thrombus. no effusion. no vegetation. Problem list Acute onset left sided weakness and decreased sensation secondary to acute CVA DM 2, [id number]-[id number] prior TIA Hypertension Obesity Nicotine dependence recent COVID-19 infection Brief History of Present Illness: 66-year-old female HTN, [id number] diabetes mellitus type 2, prior TIA. Presents to ED with left upper and lower extremity numbness and weakness since 7 PM yesterday. Patient states she suddenly noticed numbness and weakness in these extremities, including her neck and chest/flank area. She reports just getting over COVID. She began to have symptoms diagnosed approximately 2 weeks ago. She otherwise denies any other numbness/tingling, no vision changes, no change in urinary/bowel habits, no incontinence. She does not feel like she has been having any difficulty swallowing or slurring of her speech, however she states her daughter said she was talking a little "slow" today. She does report some unsteadiness on her feet today. Work-up in the ED, including CT and CTA head are negative for any acute findings. ER provider has asked for admission for further evaluation. Hospital Course: Found to have acute CVAs explaining her new onset left-sided weakness and decreased sensation. She was started on aspirin, plavix, statin, and folic acid. She had some slight improvement in her deficits. PT evaluated the patient and recommended inpatient rehab. Patient was transferred to inpatient rehab once authorization was obtained. She had low-normal blood pressure during her hospitalization and her losartan was held and discontinued on discharge. She should continue to monitor her blood pressure, f/u with PCP, and will likely need to restart in the near future. F/u with PCP in 3-5 days. F/u with Dr. Deng, Neurology, in a few weeks. Vital Signs/Physical Exam: Physical exam GEN: Alert, oriented x3, NAD CV: Regular rate and rhythm, no edema Pulm: Nonlabored respiration on room air ABD: Soft, nontender, nondistended Neuro: Normal affect. LUE: 5-/5, LLE: 4+/5 with some incoordination Decreased sensation to light touch in the lower left jaw/neck area. Decreased sensation to light touch in her left upper and lower extremity, left chest/left flank area Temp Pulse Resp BP Pulse Ox 98.3 F 80 18 100/57 L 94 07/12/21 12:00 07/12/21 12:00 07/12/21 12:00 07/12/21 12:00 07/12/21 12:00 Laboratory Data at Discharge: WBC 14.30 K/uL (4.3-10.9) H D 07/12/21 05:40 Hgb 13.9 g/dL (12.0-15.0) 07/12/21 05:40 Hct 41.4 % (36.0-45.0) 07/12/21 05:40 Plt Count 464 K/uL (152-406) H 07/12/21 05:40 PT 11.7 SECONDS (9.5-12.5) 07/08/21 11:20 INR 1.02 07/08/21 11:20 APTT 28.3 SECONDS (24.3-36.9) 07/08/21 11:20 Sodium 141 mmol/L (136-145) 07/12/21 05:40 Potassium 3.8 mmol/L (3.5-5.1) 07/12/21 05:40 BUN 10 mg/dL (7-18) 07/12/21 05:40 Creatinine 0.55 mg/dL (0.55-1.3) 07/12/21 05:40 Glucose 135 mg/dL (74-106) H 07/12/21 05:40 Magnesium 2.1 mg/dL (1.8-2.4) 07/12/21 05:40 Total Bilirubin 0.6 mg/dL (0.2-1.0) 07/09/21 02:34 AST 17 U/L (15-37) 07/09/21 02:34 ALT 21 U/L (12-78) 07/09/21 02:34 Alkaline Phosphatase 83 U/L (45-117) 07/09/21 02:34 Triglycerides 145 mg/dL (<150) 07/09/21 02:34 Cholesterol 125 mg/dL (<200) 07/09/21 02:34 HDL Cholesterol 31 mg/dL (40-60) L 07/09/21 02:34 Cholesterol/HDL Ratio 4.03 07/09/21 02:34 Home Medications: RX: Glimepiride 1 mg PO DAILY 07/09/21 RX: Metformin HCl [Metformin ER Gastric] 1,000 mg PO DAILY 07/09/21 RX: Atorvastatin Calcium [Lipitor*] 40 mg PO BEDTIME tab 07/12/21 RX: Clopidogrel Bisulfate [Plavix*] 75 mg PO DAILY tablet 07/12/21 Physician Discharge Instructions: You are found to have left-sided weakness and numbness of your body. You underwent extensive work-up and MRI revealed that you had small strokes in the right cerebral hemisphere, predominantly your right parietal lobe. You had some slight improvement in your strength, but were still very unsteady with ambulation. Physical therapy was consulted, and after discussion, was felt that you would benefit the most with aggressive physical therapy in an inpatient rehab setting. You are discharged to an inpatient rehab facility. You are prescribed aspirin 81 mg daily, Plavix, atorvastatin, and folic acid to continue to take for your stroke. You remained asymptomatic from your recent COVID-19 infection. You did not require any oxygen supplementation or other treatment. Right cerebral hemisphere acute infarcts, predominantly right parietal lobe. There are some other small foci of diffusion restriction in the more anterior right frontal lobe. These are near the watershed regions. Your blood pressure was within the normal range, and your losartan was held. Recommend to continue not taking this medication until instructed by your physician. Will need to restart if your blood pressure becomes high again. As we discussed, recommend tobacco cessation. You have done well in the hospital, and I hope you continue this upon discharge. Diet: AHA Activity: Fall precautions Followup: Kurt Deng MD [ASSOCIATE-ACTIVE - CAN ADMIT] - NONE,NONE [Primary Care Provider] - Time spent managing pt's care (in minutes): 45
== END 2021-07-12 17:47 | DRG 64 ==
LOC: ER 10:52 → ERHOLD 14:01 → OBSVTOIN 17:04 → 4TH 07-09 15:30
PROVIDERS: ADMIT Hospitalist; ATTEND Hospitalist
DX: I63.9 Cerebral infarction, unspecified (principal); U07.1 COVID-19; G81.94 Hemiplegia, unspecified affecting left nondominant side; Z68.41 Body mass index [BMI] 40.0-44.9, adult; R20.9 Unspecified disturbances of skin sensation; R29.706 NIHSS score 6; I10 Essential (primary) hypertension; E11.9 Type 2 diabetes mellitus without complications; E66.9 Obesity, unspecified; F17.210 Nicotine dependence, cigarettes, uncomplicated; Z86.73 Personal history of transient ischemic attack (TIA), and cerebral infarction without residual deficits
CPT/HCPCS: 36415; 70450; 70496; 70498; 70544; 70549; 70553; 71045; 80048; 80053; 80061; 82550; 82728; 82947; 83735; 84443; 85025; 85027; 85610; 85730; 86140; 93005; 93306; 93880; 94760; 96374; 97116; 97161; 97530; 99285; A9577; G0378; J0360; J7030; Q9967; U0003

== ENCOUNTER 2021-07-12 09:33 | Inpatient (IN) | payer OTHER ==
--- NOTE | 2021-07-12 11:48 | R.PREADM ---
PRE-ADMISSION SCREENING FORM SCREENING DATE AND TIME 07/12/2021 08:41 (CDT) ANTICIPATED REHAB ADMISSION DATE 07/14/2021 REFERRING FACILITY [facility] REFERRAL DATE AND TIME 07/09/2021 08:41 (CDT) REFERRAL ROOM# 412 ACUTE ADMIT DATE 07/08/2021 Previous Rehabilitation(s): No. 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 LEDEZMA REFERRING PHYSICIAN TORI SEWELL MD REHAB FACILITY [facility] CLINICAL LIAISON Anand Ball PHYSICIAN REVIEWER Dr. Kurt Deng M.D. MR# [id number] NAME RANJEET JACKSON ADDRESS [address] PHONE [facility] [address] DATE OF 1955 AGE 66 SSN# [id number] GENDER female MARITAL STATUS Single (Never ) PREF. LANGUAGE (IF NON-POLISH) Indonesian ADMIT FROM 02 - [facility] PRE-HOSPITAL LIVING SETTING 01 - Home (private home/apt. board/care, assisted living, long-term, transitional living) HOME TYPE AND DETAILS Type of home: single family house # of steps within the residence: 0 # of levels in the residence: 1 # of steps to enter the residence: 3 PRE-HOSPITAL LIVING WITH Family/Relatives FAMILY SUPPORT Yes PRIMARY FAMILY CONTACT NAME GINNY LEWIS PRIMARY FAMILY CONTACT PHONE PRIMARY FAMILY CONTACT RELATIONSHIP DAUGHTER PHONE PRIMARY FAMILY CONTACT ON ADM.? no IS PRIMARY FAMILY CONTACT AUTH. REP.? no 1ST EMERGENCY CONTACT GINNY LEWIS 1ST CONTACT PHONE 1ST CONTACT RELATIONSHIP DAUGHTER PHONE 1ST CONTACT ON ADM. no IS 1ST CONTACT AUTH. REP.? no PHONE 2ND CONTACT ON ADM.? no PATIENT EMPLOYMENT STATUS Retired (for age) PATIENT EMPLOYER No Employer PAYOR INFORMATION: 1ST PAYOR NAME [employer] 1ST PAYOR PHONE 1ST PAYOR CONTACT JESE Henderson 1ST PAYOR INJURY/ILLNESS DUE TO ACCIDENT? No ANOTHER GREEN PARTY RESPONSIBLE? No PRIMARY REHAB/ACUTE DIAGNOSIS: ACUTE CVA ONSET DATE 07/08/2021 REHAB IMPAIRMENT CATEGORY (DWAIN): 01 Stroke (STR) MEETS 60% rule AFFECTED EXTREMITIES: LLE, and LUE PRIMARY DIAGNOSIS-RELATED SURGERIES: N/A RISK FOR COMPLICATIONS: - N/A POST COVID-19 HTN [id number] DIABETES MELLITUS TYPE 2 PRIOR TIA SUMMARY OF ACUTE HOSPITALIZATION: Pt. is a 66 yo Right-handed white female. On 07/08/2021 Pt. presented to [facility] with sudden onset of left-side weakness. On 07/08/2021 she was admitted to [facility] with diagnosis ACUTE CVA. Her impairment category is Stroke 01 - Left Body (Right Brain) (01.1). Pre-morbidly, Pt. was independent/mod-I in Locomotion, Safety Awareness, Social Cognition, and Balanc e; and she had good Transfers Control, Sphincter Control, Self-Care, Communication, and Endurance. Currently, she has deficits of Locomotion, Safety Awareness, Balance, Transfers Control, Self-Care, a nd Endurance. Pt. is now referred to [facility] for acute in-patient rehabilitation in order to maximize patient's functional independence in activities of daily living, strength, ROM, and mobi lity. Patient has realistic goal of being discharged at assistance level 7-Ind to reside at Home with Fami ly/Relatives. Ranjeet Jackson is 66 y/o female. She lives in a single story house with 3 steps to enter. Her daugh nevaeh lives with her also. 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 She was admitted f or Acute CVA. affecting L face/neck/arm and L lat. thigh. Brain MRI: shows R cerebral hemisphere acut e infarcts, predominantly R parietal lobe. Some other small foci of diffusion restriction in the more ant. R frontal lobe, near the watershed regions. Pt. tested CoVid19(+)07/08/21, claims to have had Co Vid 19 infection from work recently. 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 Currently seen awake, L face/neck/a rm, and lat. thigh numbness, w/ diminished LUE/LLE strength, (+)pronator drift LUE. supine to sitting unassisted, sit to supine min assistance LLE up in stretcher. Sit<>standing SBA, good sitting balanc e, fair(-)dynamic standing balance. Gait w/o an A.D. currently limited PAST MEDICAL HISTORY HTN DM 2 PRIOR TIA MEDICATION ALLERGIES: No Known Drug Allergies (NKDA) ENVIRONMENTAL ALLERGIES: - Substance Allergies None Known - Other Allergies None Known CODE STATUS: Full code WEIGHT/HEIGHT/BMI: WEIGHT 231 lbs HEIGHT 5' 2" BMI 42.2 DIET: - Diet Type Regular - Diet - Solid Texture Regular - Diet - Liquid Texture Regular - Tube Feed N/A REVIEW OF SYSTEMS: - Gen Alert and awake Lying in bed No apparent distress Oriented to: person, time, and place - Vital Signs Temperature: 97.8 F SBP/DBP: 142/66 Pulse: 69 Resp: 18 Vital signs stable, afebrile - CVS RRR VITAL SIGNS Temperature: 97.8 F 07/12/21 SBP/DBP: 142/66 Pulse: 69 Resp: 18 Vital signs stable, afebrile MEDICATIONS/TREATMENT: Other- See attached MAR (Medication Administration Record). CURRENT SPHINCTER CONTROL: Pre-hospital bladder status: unspecified # of bladder accidents in the last 7 days prior to screenin Pre-hospital bowel status: unspecified # of bowel accidents in the last 7 days prior to screenin Last Bowel Movement Date: 07/12/2021 CURRENT LOCOMOTION STATUS: distance walked 500 feet using FWW with CGA DETAILED CURRENT FUNCTIONAL STATUS: - Bladder accident frequency: 7-Ind - No accidents in the past 7 days - Bowel accident frequency: 7-Ind - No accidents in the past 7 days - Walking score based on distance walked: 0(N/A) - Wheelchair score based on distance traveled: 0(N/A) QI SCORES: - Self-Care A. Eating 04-Supervision or touching assistance B. Oral hygiene 03-Partial/moderate assistance C. Toileting hygiene 03-Partial/moderate assistance E. Shower/bathe self 03-Partial/moderate assistance F. Upper body dressing 03-Partial/moderate assistance G. Lower body dressing 03-Partial/moderate assistance H. Putting on/taking off footwear 88-Not attempted due to medical condition or safety concerns - Mobility A. Roll left and right 03-Partial/moderate assistance B. Sit to lying 03-Partial/moderate assistance C. Lying to sitting on side of bed 03-Partial/moderate assistance D. Sit to stand 03-Partial/moderate assistance E. Chair/plb-lf-qhbfg transfer 03-Partial/moderate assistance F. Toilet transfer 03-Partial/moderate assistance G. Car transfer 88-Not attempted due to medical condition or safety concerns I. Walk 10 feet 03-Partial/moderate assistance J. Walk 50 feet with two turns 03-Partial/moderate assistance K. Walk 150 feet 03-Partial/moderate assistance L. Walking 10 feet on uneven surfaces 88-Not attempted due to medical condition or safety concerns M. 1 step (curb) 88-Not attempted due to medical condition or safety concerns N. 4 steps 88-Not attempted due to medical condition or safety concerns O. 12 steps 88-Not attempted due to medical condition or safety concerns P. Picking up object 88-Not attempted due to medical condition or safety concerns R. Wheel 50 feet with two turns 88-Not attempted due to medical condition or safety concerns S. Wheel 150 feet 88-Not attempted due to medical condition or safety concerns - Bladder and Bowel Bladder continence Bowel continence - Endurance Fair - Balance Fair - Safety Awareness Fair CURRENT FUNC. DEFICITS: Self-Care, Mobility, Endurance, Balance, and Safety Awareness CURRENT / PREVIOUS ASSISTIVE DEVICES: Rolling Walker HISTORY OF FALLS. HAS THE PATIENT HAD TWO OR MORE FALLS IN THE PAST YEAR OR ANY FALL WITH INJURY IN T HE PAST YEAR?: No PRIOR SURGERY. DID THE PATIENT HAVE MAJOR SURGERY DURING THE 100 DAYS PRIOR TO ADMISSION?: No THERAPY NOTES FROM ACUTE CARE: Attached. SPECIAL NEEDS: - Safety Concerns Skin breakdown precautions needed due to skin breakdown risk PATIENT NEEDS ACTIVE AND ONGOING THERAPEUTIC INTERVENTION OF MULTIPLE THERAPY DISCIPLINES, INCLUDING: - Dietary and Nutrition Adequate Nutrition. Nutritional Education. Nutritional Supplements. - Occupational Therapy Cognitive Retraining. Visual Perceptual Training. - Speech Therapy Cognitive Training. Expressive Language Skills. Memory Strategies. Receptive Language Skills. Speech Intelligibility Training. PATIENT NEEDS CLOSE MEDICAL SUPERVISION BY A REHABILITATION PHYSICIAN FOR: Coordination of Treatment Team PATIENT REQUIRES 24X7 REHAB NURSING FOR MEDICAL AND FUNCTIONAL MGT. OF THE FOLLOWING DEFICITS: Disease Management Medication Management Patient/Family Education Providing Safe Environment PATIENT REQUIRES INTENSIVE, COORDINATED INTERDISCIPLINARY APPROACH TO REHAB: Arranging Home Equipment/Services Discharge Planning Family Intervention/Training Rig Supervisor/Case Management PATIENT REHAB POTENTIAL: Delicia JACKSON is able and expected to receive 3 hours of individualized therapy daily on at least 5 of heaven ry 7 days Delicia JACKSON's prognosis for significant practical improvement within a reasonable period of time appears Good Expected level of measurable improvement will be of a practical value to Delicia JACKSON's functional capaci ty or adaptations to impairments Has a viable Discharge Plan Medically appropriate; condition is sufficiently stable to participate in intensive rehab program DISCHARGE PLAN: - Estimated Length of Stay (days) 17. - Consensus on plan Discharge plan has been discussed with primary caregiver. Patient/Family is in agreement with the barry n. Primary caregiver is in agreement with the plan. - Patient/Family Goals Return home independently. - Planned Living Setting Upon Discharge Home, to live with Family/Relatives. Transitional Living. RECOMMENDED CARE LEVEL: IRF RECOMMENDATION DETAILS: Recommended Admission to Comprehensive Rehabilitation Program to Increase Functional [place] SCREENER'S COMPLETENESS CONFIRMATION: - Screening Confirmation The patient data collection on this preadmission screening form is finished PHYSICIANS REVIEW AND ADMISSION DETERMINATION Admit - Based on my review of the Pre-Admission Screening results, in my medical judgment and experie nce, I concur with the findings and recommend admission to [facility], as this patient requires an IRF level of care. SIGNATURE PANEL: Manager [employer] - [electronically] signed by Anand Ball on 07/12/2021 at 10:56 (CDT) Manager Pharmaceutical - [electronically] signed by Amari Brown PT on 07/12/2021 at 11:42 (CDT) Physician Reviewer - [electronically] signed by Dr. Kurt Deng M.D. on 07/12/2021 at 11:47 (CDT )
[2021-07-12 21:39] LABS: Urine Appearance CLEAR (Clear); Urine Bilirubin NEGATIVE (Negative); Urine Blood NEGATIVE (Negative); Urine Color YELLOW (Yellow); Urine Glucose NEGATIVE (Negative); Urine Protein NEGATIVE (Negative); Urine pH 5.5 (5.0-7.0)
[2021-07-12] MEDS: ATORVASTATIN 40 MG TAB PO SCH (22:16)
[2021-07-12 23:47] LABS: Urine Bacteria <20 /HPF (<20); Urine RBC <5 /HPF (NONE SEEN)
[2021-07-13] MEDS ORDERED: D50W 25 GM/50 ML SYRINGE IV PRN (00:54)
[2021-07-13] MEDS ORDERED: GLUCAGON 1 MG/VIAL IM PRN (00:54)
[2021-07-13 05:58] LABS: Absolute Lymphocytes (CBC) 4.2 K/uL (0.7-4.9); Basophils % 1.3 % (0-1.3); Hematocrit 40.4 % (36.0-45.0); Lymphocytes % 34.9 % (15.3-44.8); MPV 9.3 fL (7.6-11.3); RBC Red Blood Cell Count 4.63 M/uL (3.86-4.86)
[2021-07-13 06:16] LABS: Albumin 2.7 g/dL (3.4-5.0); BUN Blood Urea Nitrogen 9 mg/dL (7-18); Bicarbonate 25 mmol/L (21-32); Glucose Level 128 mg/dL (74-106); Potassium 4.1 mmol/L (3.5-5.1); Prealbumin 10.9 mg/dL (20-40); Sodium Level 145 mmol/L (136-145)
[2021-07-13] MEDS: INSULIN -REGULAR HUMAN 50 UNIT/0.5 ML ML SQ SCH ×4 (07:11→21:00)
[2021-07-13] MEDS ORDERED: METFORMIN ER 500 MG TAB PO SCH (08:00)
[2021-07-13] MEDS ORDERED: PNEUMOCOCCAL VACCINE 0.5 ML IMVAC ONE (08:00)
[2021-07-13] MEDS: CLOPIDOGREL 75 MG TABLET PO SCH (09:19)
[2021-07-13] MEDS: GLIMEPIRIDE 2 MG TABLET PO SCH (09:19)
[2021-07-13] MEDS: METFORMIN ER 500 MG TAB PO SCH ×2 (09:19→16:54)
--- NOTE | 2021-07-13 19:21 | PAPE ---
POST ADMISSION PHYSICIAN EVALUATION PATIENT: [facility] MR# [id number] REFERRING DOCTOR TORI SEWELL MD EVALUATION DATE AND TIME 07/13/2021 18:57 (CDT) NAME RANJEET LIMON DATE OF 1955 AGE 66 PHONE SSN# [id number] GENDER female EVALUATING PHYSICIAN Dr. Kurt Deng M.D. ADMISSION DIAGNOSIS: ACUTE CVA ONSET DATE 07/08/2021 POST-ADMISSION FUNCTIONAL/MEDICAL STATUS: - Bladder Same accident frequency: 7-Ind - No accidents in the past 7 days - Bowel Same accident frequency: 7-Ind - No accidents in the past 7 days - Walking Same score based on distance walked: 0(N/A) - Wheelchair Same score based on distance traveled: 0(N/A) STATUS CHANGE EVALUATION: No change in Functional or Medical Status is identified compared with Pre-Admission screening. PATIENT NEEDS CLOSE MEDICAL SUPERVISION BY A REHABILITATION PHYSICIAN FOR: Coordination of Treatment Team PATIENT REQUIRES 24X7 REHAB NURSING FOR MEDICAL AND FUNCTIONAL MGT. OF THE FOLLOWING DEFICITS: Disease Management Medication Management Patient/Family Education Providing Safe Environment PATIENT REQUIRES INTENSIVE, COORDINATED INTERDISCIPLINARY APPROACH TO REHAB: Arranging Home Equipment/Services Discharge Planning Family Intervention/Training Contracts Specialist/Case Management LIST OF IDENTIFIED AND POTENTIAL PROBLEMS: Alteration in leisure activities Bladder, Incontinence Bowel, Incontinence Infection, Actual or Potential Mobility Impaired Pain, Alteration in Comfort Self Care Deficit Skin Integrity, Actual or Potential Urinary Tract Infection (UTI), Actual or Potential RISK FOR COMPLICATIONS - N/A POST COVID-19. HTN. [id number] DIABETES MELLITUS TYPE 2. PRIOR TIA. PATIENT COULD BE AT RISK FOR COMPLICATIONS FROM ADVERSE MEDICAL CONDITIONS DUE TO HIS/HER COMORBIDITI ES AND THE RIGORS OF THE INTENSIVE REHABILLITATION PROGRAM. METHODS OR INTERVENTIONS TO AVOID COMPLIC ATIONS INCLUDE: - Bleeding Stroke patients assessed for lethargy or change in status. - Infection Clinical staff to assess and manage the signs and symptoms of infection including fever, redness, war mth, etc. - Urinary Tract Infection - Aspiration Clinical staff will assess and manage coughing, drooling, congestion. - Falls Patient will be evaluated for Fall Precautions and will be placed on Fall Precautions as indicated pe r protocol. - Skin Breakdown Nursing will assess skin daily using assessment tool and will place on Skin Breakdown Precautions as indicated per protocol. - Pain Clinical staff may employ non-medication methods such as massage, distraction, decrease stimulus, etc . as needed. Clinical staff will assess patient's pain level every shift per protocol to assess and e nsure pain management effectiveness. Medications will be given and the pain level re-assessed. PRELIMINARY PLAN OF CARE: - Physical Therapy Patient needs Physical Therapy for a daily minimum of 1.5 hours at least 5 out of 7 days, to improve: Mobility, Strengthening, Transfers, Stretching, ROM, Endurance, Ability to manage stairs, Gait, and Balance. - Speech Therapy Patient needs Speech Therapy for a daily minimum of 0.5 hours at least 5 out of 7 days, to improve: S wallowing, Cognition, Language Skills, and Compensatory Strategies. - Rehabilitation Nursing Patient requires 24x7 Rehabilitation Nursing for: Pain Issues, Identifying and preventing risk factor s, Monitoring and reporting current medical conditions, Assisting with ambulation and transfer, Shania ting with all ADL-s, Teaching patients about disease process and medications, Family teaching, Provid ing safe environment, Bowel and Bladder Issues, Skin Integrity, and Medication Management. Patient needs Contracts Specialist and/or Case Management for: Discharge Planning, Arranging Home Equipmen t or Services, and Family Interventions. - Dietary and Nutrition Services Patient needs Dietary and Nutrition Services for: Adequate Nutrition, Nutritional Supplements, and Nu tritional Education. - Occupational Therapy Patient needs Occupational Therapy for a daily minimum of 1.5 hours at least 5 out of 7 days, to impr ove Activities of Daily Living, including: Eating, Grooming, Bathing, Dressing, Toileting, Toilet Tra nsfers, Community Reintegration, Higher functional activities, Adaptive Equipment, Splinting, Househo ld Tasks, and Other activities as determined. QI SCORES: - Self-Care A. Eating 04-Supervision or touching assistance B. Oral hygiene 03-Partial/moderate assistance C. Toileting hygiene 03-Partial/moderate assistance E. Shower/bathe self 03-Partial/moderate assistance F. Upper body dressing 03-Partial/moderate assistance G. Lower body dressing 03-Partial/moderate assistance H. Putting on/taking off footwear 88-Not attempted due to medical condition or safety concerns - Mobility A. Roll left and right 03-Partial/moderate assistance B. Sit to lying 03-Partial/moderate assistance C. Lying to sitting on side of bed 03-Partial/moderate assistance D. Sit to stand 03-Partial/moderate assistance E. Chair/jbi-xc-wsxyu transfer 03-Partial/moderate assistance F. Toilet transfer 03-Partial/moderate assistance G. Car transfer 88-Not attempted due to medical condition or safety concerns I. Walk 10 feet 03-Partial/moderate assistance J. Walk 50 feet with two turns 03-Partial/moderate assistance K. Walk 150 feet 03-Partial/moderate assistance L. Walking 10 feet on uneven surfaces 88-Not attempted due to medical condition or safety concerns M. 1 step (curb) 88-Not attempted due to medical condition or safety concerns N. 4 steps 88-Not attempted due to medical condition or safety concerns O. 12 steps 88-Not attempted due to medical condition or safety concerns P. Picking up object 88-Not attempted due to medical condition or safety concerns R. Wheel 50 feet with two turns 88-Not attempted due to medical condition or safety concerns S. Wheel 150 feet 88-Not attempted due to medical condition or safety concerns - Bladder and Bowel Bladder continence Bowel continence - Endurance Fair - Balance Fair - Safety Awareness Fair POTENTIAL FUNCTIONAL GOALS FOR PATIENT TO ACHIEVE BY DISCHARGE: - Safety Precaution Patient will remain free from falls or injury at time of discharge. - Bed Mobility Patient will perform bed mobility at 4-Chance level of assistance. - Transfers Patient will complete transfers from bed to chair at 4-Chance level of assistance. - Mobility Patient will ambulate 150 ft with 4-Chance level of assistance with RW. PATIENT REHAB POTENTIAL Delicia LIMON is able and expected to receive 3 hours of individualized therapy daily on at least 5 of heaven ry 7 days JanePhillip LIMON's prognosis for significant practical improvement within a reasonable period of time appears Good Expected level of measurable improvement will be of a practical value to JanePhillip LIMON's functional capaci ty or adaptations to impairments Has a viable Discharge Plan Medically appropriate; condition is sufficiently stable to participate in intensive rehab program DISCHARGE PLAN: - Estimated Length of Stay (days) 17. - Consensus on plan Discharge plan has been discussed with primary caregiver. Patient/Family is in agreement with the barry n. Primary caregiver is in agreement with the plan. - Patient/Family Goals Return home independently. - Planned Living Setting Upon Discharge Home, to live with Family/Relatives. Transitional Living. CONCLUSION ON REHABILITATION NECESSITY: I have evaluated patient's pre-admission functional status and, comparing it to the patient's post-ad mission functional status now, I conclude that the pre-admission assessment was accurate. Patient's c ondition on admission supports the medical necessity of admission to IRF. It is safe to proceed with patient's therapy program. SIGNATURE PANEL: (CDT)
--- NOTE | 2021-07-13 19:31 | R.HP ---
HISTORY AND PHYSICAL FACILITY: [facility] ENCOUNTER DATE AND TIME: 07/13/2021 18:57 (CDT) MR#: [id number] NAME RANJEET JACKSON ADDRESS: [address] CITY: [place] [address] [address] PHONE: DATE OF : 1955 AGE: 66 SSN# [id number] GENDER: Female MARITAL STATUS Single (Never ) PRE-HOSPITAL LIVING SETTING 01 - Home (private home/apt. board/care, assisted living, fci, transitional living) PRE-HOSPITAL LIVING WITH Family/Relatives ENCOUNTER PHYSICIAN: Dr. Kurt Deng M.D. REFERRING DOCTOR: TORI SEWELL MD DATE OF ADMISSION: 07/13/2021 12:57 (CDT) REFERRING FACILITY [facility] HOME TYPE AND DETAILS: Type of home: single family house # of steps within the residence: 0 # of levels in the residence: 1 # of steps to enter the residence: 3 ONSET DATE: 07/08/2021 PRIMARY DIAGNOSIS-RELATED SURGERIES: N/A HISTORY OF PRESENT ILLNESS (HPI): Pt. is a 66 yo Right-handed white female. On 07/08/2021 Pt. presented to [facility] with sudden onset of left-side weakness. On 07/08/2021 she was admitted to [facility] with diagnosis ACUTE CVA. Her impairment category is Stroke 01 - Left Body (Right Brain) (01.1). Pre-morbidly, Pt. was independent/mod-I in Locomotion, Safety Awareness, Social Cognition, and Balanc e; and she had good Transfers Control, Sphincter Control, Self-Care, Communication, and Endurance. Currently, she has deficits of Locomotion, Safety Awareness, Balance, Transfers Control, Self-Care, a nd Endurance. Pt. is now referred to [facility] for acute in-patient rehabilitation in order to maximize patient's functional independence in activities of daily living, strength, ROM, and mobi lity. Patient has realistic goal of being discharged at assistance level 7-Ind to reside at Home with Fami ly/Relatives. Ranjeet Jackson is 66 y/o female. She lives in a single story house with 3 steps to enter. Her daugh ter lives with her also. 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 She was admitted f or Acute CVA. affecting L face/neck/arm and L lat. thigh. Brain MRI: shows R cerebral hemisphere acut e infarcts, predominantly R parietal lobe. Some other small foci of diffusion restriction in the more ant. R frontal lobe, near the watershed regions. Pt. tested CoVid19(+)07/08/21, claims to have had Co Vid 19 infection from work recently. Pt. works at [employer] as [employer]. Currently seen awake, L face/neck/a rm, and lat. thigh numbness, w/ diminished LUE/LLE strength, (+)pronator drift LUE. supine to sitting unassisted, sit to supine min assistance LLE up in stretcher. Sit<>standing SBA, good sitting balanc e, fair(-)dynamic standing balance. Gait w/o an A.D. currently limited WBC 12.0, Plt 481, BMP is essentially unremarkable. Prealbumin 10.9, CRP 20.0, glucose 100 to 203. UA shows esterase 2+. Covid-19 is positive 07/08/21 and 07/12/21. Now beginning to ambulate 500' to 900' with a standby assistance using a rolling walker. MEDICATION ALLERGIES: No Known Drug Allergies (NKDA) ENVIRONMENTAL ALLERGIES: - Substance Allergies None Known - Other Allergies None Known PAST MEDICAL HISTORY: HTN DM 2 PRIOR TIA SOCIAL HISTORY: - Home Living Family/Relatives REVIEW OF SYSTEMS: - Gen No Chills Fatigue No Fever - Eyes No Double Vision No itchiness - ENMT No Difficulty Swallowing - CVS No Chest Discomfort No Chest Pain Fatigue No Weight Gain - Resp No Cough No Shortness of Breath - GI Continent No Abdominal Pain No Constipation No Diarrhea - Continent No Kidney Pain No Painful Urination No Urinary Urgency - MSK No Joint Pain Muscle Cramps Stiffness - Skin No Itching No Rash No Suspicious Lesions - Neuro Coordination Difficulty Difficulty with Concentration Memory Loss No Seizures Weakness - Psych No Anxiety No Depression No HIV Exposure No Persistent Infections No Seasonal Allergies - Endo No Cold/Heat Intolerance No Excessive Hunger No Excessive Thirst No Excessive Urination PHYSICAL EXAM - Gen Alert and awake Lying in bed No apparent distress Oriented to: person, time, and place - Skin No breakdown No abnormalities - Eyes No abnormalities - ENMT No abnormalities - Neck No abnormalities - CVS RRR - Chest No abnormalities - Abd + bowel sounds - GI Soft Deferred - No abnormalities - Ext No significant edema - MSK 4+/5 weakness in left lower extremity - Neuro 4/5 strength left upper and lower extremities. - Psych No abnormalities VITAL SIGNS Temperature: 98.4 SBP/DBP: 126/72 Pulse: 70 Resp: 16 NURSING: - Shower allowing shower - Bladder care per protocol - Skin care per protocol PRECAUTIONS: - Weight Bearing Precaution WBAT left LE ACTIVITIES OOB only with supervision QI SCORES: - Self-Care A. Eating 04-Supervision or touching assistance B. Oral hygiene 03-Partial/moderate assistance C. Toileting hygiene 03-Partial/moderate assistance E. Shower/bathe self 03-Partial/moderate assistance F. Upper body dressing 03-Partial/moderate assistance G. Lower body dressing 03-Partial/moderate assistance H. Putting on/taking off footwear 88-Not attempted due to medical condition or safety concerns - Mobility A. Roll left and right 03-Partial/moderate assistance B. Sit to lying 03-Partial/moderate assistance C. Lying to sitting on side of bed 03-Partial/moderate assistance D. Sit to stand 03-Partial/moderate assistance E. Chair/hda-cn-wtazf transfer 03-Partial/moderate assistance F. Toilet transfer 03-Partial/moderate assistance G. Car transfer 88-Not attempted due to medical condition or safety concerns I. Walk 10 feet 03-Partial/moderate assistance J. Walk 50 feet with two turns 03-Partial/moderate assistance K. Walk 150 feet 03-Partial/moderate assistance L. Walking 10 feet on uneven surfaces 88-Not attempted due to medical condition or safety concerns M. 1 step (curb) 88-Not attempted due to medical condition or safety concerns N. 4 steps 88-Not attempted due to medical condition or safety concerns O. 12 steps 88-Not attempted due to medical condition or safety concerns P. Picking up object 88-Not attempted due to medical condition or safety concerns R. Wheel 50 feet with two turns 88-Not attempted due to medical condition or safety concerns S. Wheel 150 feet 88-Not attempted due to medical condition or safety concerns - Bladder and Bowel Bladder continence Bowel continence - Endurance Fair - Balance Fair - Safety Awareness Fair CURRENT FUNC. DEFICITS: Self-Care, Mobility, Endurance, Balance, and Safety Awareness MEDICATIONS: - Other See attached MAR (Medication Administration Record) ASSESSMENT: Pt. is a 66 yo Right-handed white female.On 07/08/2021 Pt. presented to [facility] with sudden onset of left-side weakness.On 07/08/2021 she was admitted to [facility] with sean gnosis ACUTE CVA.Her impairment category is Stroke 01 - Left Body (Right Brain) (01.1).Pre-morbidly, Pt. was independent/mod-I in Locomotion, Safety Awareness, Social Cognition, and Balance; and she puga d good Transfers Control, Sphincter Control, Self-Care, Communication, and Endurance.Currently, she h as deficits of Locomotion, Safety Awareness, Balance, Transfers Control, Self-Care, and Endurance.Pt. is now referred to [facility] for acute in-patient rehabilitation in order to maximize patient's functional independence in activities of daily living, strength, ROM, and mobilit y.- Rehab Goal Patient has realistic goal of being discharged at assistance level 7-Ind to reside at Home with Fami ly/Relatives. Ranjeet Jackson is 66 y/o female. She lives in a single story house with 3 steps to enter. Her daugh ter lives with her also. 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 She was admitted f or Acute CVA. affecting L face/neck/arm and L lat. thigh. Brain MRI: shows R cerebral hemisphere acut e infarcts, predominantly R parietal lobe. Some other small foci of diffusion restriction in the more ant. R frontal lobe, near the watershed regions. Pt. tested CoVid19(+)07/08/21, claims to have had Co Vid 19 infection from work recently. Pt. works at [employer] as [employer]. Currently seen awake, L face/neck/a rm, and lat. thigh numbness, w/ diminished LUE/LLE strength, (+)pronator drift LUE. supine to sitting unassisted, sit to supine min assistance LLE up in stretcher. Sit<>standing SBA, good sitting balanc e, fair(-)dynamic standing balance. Gait w/o an A.D. currently limited for Dementia, TBI, Stroke, or others - Physical Therapy Gait dysfunction - to improve, our physical therapists will perform initial evaluation of pt's status upon admission and devise an individualized program for Gait Training, and Wheel Chair mobility Inability to transfer - to improve, our physical therapists will perform initial evaluation of pt's s tatus upon admission and devise an individualized program for Bed mobility Need for home safety evaluation - to improve, our physical therapists will perform initial evaluation of pt's status upon admission and devise an individualized program for Home Evaluation Need in caregiver upon discharge - to improve, our physical therapists will perform initial evaluatio n of pt's status upon admission and devise an individualized program for Caregiver Training New precaution - to improve, our physical therapists will perform initial evaluation of pt's status u gene admission and devise an individualized program for Patient precaution education Edema - to improve, our physical therapists will perform initial evaluation of pt's status upon admi ssion and devise an individualized program for Elevation Training, and Lymphedema Therapy Poor balance - to improve, our physical therapists will perform initial evaluation of pt's status upo n admission and devise an individualized program for Balance Training Poor endurance - to improve, our physical therapists will perform initial evaluation of pt's status u gene admission and devise an individualized program for Endurance Training Weakness - to improve, our physical therapists will perform initial evaluation of pt's status upon ad mission and devise an individualized program for Aquatic Therapy, Neuromuscular Reeducation, and Stre ngthening Achieving independence - to improve, our physical therapists will perform initial evaluation of pt's status upon admission and devise an individualized program for Community Reintegration Activities - Occupational Therapy ADL deficits - to improve, our occupation therapists will perform initial evaluation of pt's status u gene admission and devise an individualized program for Bathing, Bed mobility, Community Reintegration , Cooking, Dressing, Eating, Fine Motor Skills, Grooming, Homemaking, Kitchen Mobility, Laundry, Betty ent Education, Safety Awareness, Splinting - Positioning, Transfers(Toilet, Tub, Shower), and Wheel C hair Management Need for neonatal intensive care unit nurse - to improve, our occupation therapists will perform initial evaluation of pt's s tatus upon admission and devise an individualized program for Caregiver Training Weakness - to improve, our occupation therapists will perform initial evaluation of pt's status upon admission and devise an individualized program for Aquatic Therapy, Balance, Endurance, UE ROM, and U E strengthening MEDICAL PLAN: - Diet Type Regular - Diet - Liquid Texture Regular - Tube Feed N/A - Bladder care per protocol - Weight Bearing Precaution WBAT LE - Skin care per protocol - Other See attached MAR (Medication Administration Record) - Diet - Solid Texture Regular - Shower shower DISCHARGE PLAN: - Estimated Length of Stay (days) 17. - Consensus on plan Discharge plan has been discussed with primary caregiver. Patient/Family is in agreement with the barry n. Primary caregiver is in agreement with the plan. - Patient/Family Goals Return home independently. - Planned Living Setting Upon Discharge Home, to live with Family/Relatives. Transitional Living. SIGNATURE PANEL: (CDT)
[2021-07-13] MEDS: ATORVASTATIN 40 MG TAB PO SCH (21:49)
[2021-07-14] MEDS: INSULIN -REGULAR HUMAN 50 UNIT/0.5 ML ML SQ SCH ×4 (07:30→20:51)
[2021-07-14] MEDS ORDERED: DOCUSATE NA/SENNA CONC 1 TAB PO PRN (07:34)
[2021-07-14] MEDS ORDERED: ACETAMINOPHEN 500 MG TAB PO PRN (07:35)
[2021-07-14] MEDS: APIXABAN 2.5 MG TABLET PO SCH ×2 (08:12→20:50)
[2021-07-14] MEDS: CLOPIDOGREL 75 MG TABLET PO SCH (08:12)
[2021-07-14] MEDS: GLIMEPIRIDE 2 MG TABLET PO SCH (08:13)
[2021-07-14] MEDS: METFORMIN ER 500 MG TAB PO SCH ×2 (08:13→16:59)
--- NOTE | 2021-07-14 17:07 | R.PN ---
PROGRESS NOTES ENCOUNTER DATE AND TIME: 07/14/2021 17:01 (CDT) NAME RANJEET LIMON DATE OF : 1955 DATE OF ADMISSION: 07/13/2021 12:57 (CDT) ACUTE CVACHIEF COMPLAINT: Right hemispheric stroke with left sided deficits SUBJECTIVE: Pt denied any depression. Pt denied any Shortness of Breath. WBC 12.0, Plt 481, Glu 62 to 183, prealbumin 10.9, UA 2+ esterase, WBC 10-20 Ambulated 1250' with modified independence using a rolling walker. Up and down 15 steps with modified independence. Wheelchair mobility 250' with modified independence. VITAL SIGNS Temperature: 98.4 SBP/DBP: 126/72 Pulse: 70 Resp: 16 MEDICATION ALLERGIES: No Known Drug Allergies (NKDA) ENVIRONMENTAL ALLERGIES: - Substance Allergies None Known - Other Allergies None Known NURSING: - Shower allowing shower - Bladder care per protocol - Skin care per protocol PRECAUTIONS: - Weight Bearing Precaution WBAT left LE ACTIVITIES OOB only with supervision THERAPIES: - Dietary and Nutrition Adequate Nutrition. Nutritional Education. Nutritional Supplements. - Occupational Therapy Cognitive Retraining. Visual Perceptual Training. - Speech Therapy Cognitive Training. Expressive Language Skills. Memory Strategies. Receptive Language Skills. Speech Intelligibility Training. PHYSICAL EXAM - Gen Alert and awake Lying in bed No apparent distress Oriented to: person, time, and place - Skin No breakdown No abnormalities - Eyes No abnormalities - ENMT No abnormalities - Neck No abnormalities - CVS RRR - Chest No abnormalities - Abd + bowel sounds - GI Soft Deferred - No abnormalities - Ext No significant edema - MSK 4+/5 weakness in left lower extremity - Neuro 4/5 strength left upper and lower extremities. - Psych No abnormalities ASSESSMENT: Pt. is a 66 yo Right-handed white female.On 07/08/2021 Pt. presented to [facility] with sudden onset of left-side weakness.On 07/08/2021 she was admitted to [facility] with sean gnosis ACUTE CVA.Her impairment category is Stroke 01 - Left Body (Right Brain) (01.1).Pre-morbidly, Pt. was independent/mod-I in Locomotion, Safety Awareness, Social Cognition, and Balance; and she puga d good Transfers Control, Sphincter Control, Self-Care, Communication, and Endurance.Currently, she h as deficits of Locomotion, Safety Awareness, Balance, Transfers Control, Self-Care, and Endurance.Pt. is now referred to [facility] for acute in-patient rehabilitation in order to maximize patient's functional independence in activities of daily living, strength, ROM, and mobilit y.- Rehab Goal Patient has realistic goal of being discharged at assistance level 7-Ind to reside at Home with Fami ly/Relatives. WBC 12.0, Plt 481, BMP is essentially unremarkable. Prealbumin 10.9, CRP 20.0, glucose 100 to 203. UA shows esterase 2+. Covid-19 is positive 07/08/21 and 07/12/21.Now beginning to ambulate 500' to 900' w ith a standby assistance using a rolling walker.MDM/PLAN: - Physical Therapy Gait dysfunction - to improve, our physical therapists will perform initial evaluation of pt's statu s upon admission and devise an individualized program for Gait Training, and Wheel Chair mobility Inability to transfer - to improve, our physical therapists will perform initial evaluation of pt's status upon admission and devise an individualized program for Bed mobility Need for home safety evaluation - to improve, our physical therapists will perform initial evaluatio n of pt's status upon admission and devise an individualized program for Home Evaluation Need in caregiver upon discharge - to improve, our physical therapists will perform initial evaluati on of pt's status upon admission and devise an individualized program for Caregiver Training New precaution - to improve, our physical therapists will perform initial evaluation of pt's status upon admission and devise an individualized program for Patient precaution education Edema - to improve, our physical therapists will perform initial evaluation of pt's status upon admis ghassan and devise an individualized program for Elevation Training, and Lymphedema Therapy Poor balance - to improve, our physical therapists will perform initial evaluation of pt's status up on admission and devise an individualized program for Balance Training Poor endurance - to improve, our physical therapists will perform initial evaluation of pt's status upon admission and devise an individualized program for Endurance Training Weakness - to improve, our physical therapists will perform initial evaluation of pt's status upon a dmission and devise an individualized program for Aquatic Therapy, Neuromuscular Reeducation, and Str engthening Achieving independence - to improve, our physical therapists will perform initial evaluation of pt's status upon admission and devise an individualized program for Community Reintegration Activities - Occupational Therapy ADL deficits - to improve, our occupation therapists will perform initial evaluation of pt's status upon admission and devise an individualized program for Bathing, Bed mobility, Community Reintegratio n, Cooking, Dressing, Eating, Fine Motor Skills, Grooming, Homemaking, Kitchen Mobility, Laundry, Pat ient Education, Safety Awareness, Splinting - Positioning, Transfers(Toilet, Tub, Shower), and Wheel Chair Management Need for laboratory animal caretaker - to improve, our occupation therapists will perform initial evaluation of pt's status upon admission and devise an individualized program for Caregiver Training Weakness - to improve, our occupation therapists will perform initial evaluation of pt's status upon admission and devise an individualized program for Aquatic Therapy, Balance, Endurance, UE ROM, and UE strengthening - Other See attached MAR (Medication Administration Record) - Diet Type Continue Regular - Diet - Liquid Texture Continue Regular - Tube Feed Continue N/A - Bladder care per protocol - Weight Bearing Precaution WBAT left LE - Skin care per protocol - Diet - Solid Texture Continue Regular - Shower allowing shower for Dementia, TBI, Stroke, or others FUNCTIONAL STATUS: - Self-Care A. Eating Ind B. Grooming Ind C. Bathing sup D. Dressing - Upper sup E. Dressing - Lower Chance F. Toileting Dayana - Sphincter Control G. Bladder control Ind H. Bowel control Ind - Transfers Control I. Bed/Chair/Wheelchair Dayana J. Toilet Dayana K. Tub/Shower sup - Locomotion L. Walk/Wheelchair (B) sup M. Stairs sup - Communication N. Comprehension (B) Dayana O. Expression (B) Dayana - Social Cognition P. Social Interaction Ind Q. Problem Solving Dayana R. Memory Ind - Endurance Good - Balance Fair - Safety Awareness Good QI SCORES: - Self-Care A. Eating 04-Supervision or touching assistance B. Oral hygiene 03-Partial/moderate assistance C. Toileting hygiene 03-Partial/moderate assistance E. Shower/bathe self 03-Partial/moderate assistance F. Upper body dressing 03-Partial/moderate assistance G. Lower body dressing 03-Partial/moderate assistance H. Putting on/taking off footwear 88-Not attempted due to medical condition or safety concerns - Mobility A. Roll left and right 03-Partial/moderate assistance B. Sit to lying 03-Partial/moderate assistance C. Lying to sitting on side of bed 03-Partial/moderate assistance D. Sit to stand 03-Partial/moderate assistance E. Chair/xpc-md-[id number] transfer 03-Partial/moderate assistance F. Toilet transfer 03-Partial/moderate assistance G. Car transfer 88-Not attempted due to medical condition or safety concerns I. Walk 10 feet 03-Partial/moderate assistance J. Walk 50 feet with two turns 03-Partial/moderate assistance K. Walk 150 feet 03-Partial/moderate assistance L. Walking 10 feet on uneven surfaces 88-Not attempted due to medical condition or safety concerns M. 1 step (curb) 88-Not attempted due to medical condition or safety concerns N. 4 steps 88-Not attempted due to medical condition or safety concerns O. 12 steps 88-Not attempted due to medical condition or safety concerns P. Picking up object 88-Not attempted due to medical condition or safety concerns R. Wheel 50 feet with two turns 88-Not attempted due to medical condition or safety concerns S. Wheel 150 feet 88-Not attempted due to medical condition or safety concerns - Bladder and Bowel Bladder continence Bowel continence - Endurance Fair - Balance Fair - Safety Awareness Fair [facility]RENT [facility]. DEFICITS: Self-Care, Mobility, Endurance, Balance, and Safety Awareness SIGNATURE PANEL: (CDT)
[2021-07-14] MEDS ORDERED: CRANBERRY FRUIT EXTRACT 400 MG CAP PO SCH (20:00)
[2021-07-14] MEDS: CRANBERRY EXTRACT 400 MG CAPSULE PO SCH (20:00)
[2021-07-14] MEDS: ATORVASTATIN 40 MG TAB PO SCH (20:50)
[2021-07-14] MEDS: MELATONIN 3 MG TABLET PO PRN (20:50)
[2021-07-15 06:08] LABS: Absolute Lymphocytes (CBC) 5.1 K/uL (0.7-4.9); Basophils % 1.2 % (0-1.3); Hematocrit 40.1 % (36.0-45.0); Lymphocytes % 37.7 % (15.3-44.8); MPV 9.2 fL (7.6-11.3); RBC Red Blood Cell Count 4.59 M/uL (3.86-4.86)
[2021-07-15 06:29] LABS: Albumin 2.8 g/dL (3.4-5.0); BUN Blood Urea Nitrogen 13 mg/dL (7-18); Bicarbonate 29 mmol/L (21-32); Glucose Level 110 mg/dL (74-106); Magnesium 2.1 mg/dL (1.8-2.4); Potassium 4.5 mmol/L (3.5-5.1); Prealbumin 11.7 mg/dL (20-40); Sodium Level 142 mmol/L (136-145)
[2021-07-15] MEDS: INSULIN -REGULAR HUMAN 50 UNIT/0.5 ML ML SQ SCH ×4 (07:30→21:00)
[2021-07-15] MEDS: CLOPIDOGREL 75 MG TABLET PO SCH (07:38)
[2021-07-15] MEDS: GLIMEPIRIDE 2 MG TABLET PO SCH (07:39)
[2021-07-15] MEDS: CRANBERRY EXTRACT 400 MG CAPSULE PO SCH ×2 (07:39→20:00)
[2021-07-15] MEDS: APIXABAN 2.5 MG TABLET PO SCH ×2 (07:39→21:49)
[2021-07-15] MEDS: METFORMIN ER 500 MG TAB PO SCH ×2 (07:39→16:42)
--- NOTE | 2021-07-15 19:42 | R.PN ---
PROGRESS NOTES ENCOUNTER DATE AND TIME: 07/15/2021 19:37 (CDT) NAME RANJEET LIMON DATE OF : 1955 DATE OF ADMISSION: 07/13/2021 12:57 (CDT) ACUTE CVACHIEF COMPLAINT: Right hemispheric stroke with left sided deficits SUBJECTIVE: Pt denied any depression. Pt denied any Shortness of Breath. WBC 13.5, Plt 472, Glu 85-128, prealbumin 11.7, UA 2+ esterase, WBC 10-20 Ambulated 1950' with modified independence using a rolling walker. Up and down 15 steps with modified independence. Wheelchair mobility 500' with modified independence. VITAL SIGNS Temperature: 98.0 F SBP/DBP: 111/57 Pulse: 54 Resp: 16 MEDICATION ALLERGIES: No Known Drug Allergies (NKDA) ENVIRONMENTAL ALLERGIES: - Substance Allergies None Known - Other Allergies None Known NURSING: - Shower allowing shower - Bladder care per protocol - Skin care per protocol PRECAUTIONS: - Weight Bearing Precaution WBAT left LE ACTIVITIES OOB only with supervision THERAPIES: - Dietary and Nutrition Adequate Nutrition. Nutritional Education. Nutritional Supplements. - Occupational Therapy Cognitive Retraining. Visual Perceptual Training. - Speech Therapy Cognitive Training. Expressive Language Skills. Memory Strategies. Receptive Language Skills. Speech Intelligibility Training. PHYSICAL EXAM - Gen Alert and awake Lying in bed No apparent distress Oriented to: person, time, and place - Skin No breakdown No abnormalities - Eyes No abnormalities - ENMT No abnormalities - Neck No abnormalities - CVS RRR - Chest No abnormalities - Abd + bowel sounds - GI Soft Deferred - No abnormalities - Ext No significant edema - MSK 4+/5 weakness in left lower extremity - Neuro 4/5 strength left upper and lower extremities. - Psych No abnormalities ASSESSMENT: Pt. is a 66 yo Right-handed white female.On 07/08/2021 Pt. presented to [facility] with sudden onset of left-side weakness.On 07/08/2021 she was admitted to [facility] with sean gnosis ACUTE CVA.Her impairment category is Stroke 01 - Left Body (Right Brain) (01.1).Pre-morbidly, Pt. was independent/mod-I in Locomotion, Safety Awareness, Social Cognition, and Balance; and she puga d good Transfers Control, Sphincter Control, Self-Care, Communication, and Endurance.Currently, she h as deficits of Locomotion, Safety Awareness, Balance, Transfers Control, Self-Care, and Endurance.Pt. is now referred to [facility] for acute in-patient rehabilitation in order to maximize patient's functional independence in activities of daily living, strength, ROM, and mobilit y.- Rehab Goal Patient has realistic goal of being discharged at assistance level 7-Ind to reside at Home with Fami ly/Relatives. WBC 12.0, Plt 481, BMP is essentially unremarkable. Prealbumin 10.9, CRP 20.0, glucose 100 to 203. UA shows esterase 2+. Covid-19 is positive 07/08/21 and 07/12/21.Now beginning to ambulate 500' to 900' w ith a standby assistance using a rolling walker.MDM/PLAN: - Physical Therapy Gait dysfunction - to improve, our physical therapists will perform initial evaluation of pt's statu s upon admission and devise an individualized program for Gait Training, and Wheel Chair mobility Inability to transfer - to improve, our physical therapists will perform initial evaluation of pt's status upon admission and devise an individualized program for Bed mobility Need for home safety evaluation - to improve, our physical therapists will perform initial evaluatio n of pt's status upon admission and devise an individualized program for Home Evaluation Need in caregiver upon discharge - to improve, our physical therapists will perform initial evaluati on of pt's status upon admission and devise an individualized program for Caregiver Training New precaution - to improve, our physical therapists will perform initial evaluation of pt's status upon admission and devise an individualized program for Patient precaution education Edema - to improve, our physical therapists will perform initial evaluation of pt's status upon admi ssion and devise an individualized program for Elevation Training, and Lymphedema Therapy Poor balance - to improve, our physical therapists will perform initial evaluation of pt's status up on admission and devise an individualized program for Balance Training Poor endurance - to improve, our physical therapists will perform initial evaluation of pt's status upon admission and devise an individualized program for Endurance Training Weakness - to improve, our physical therapists will perform initial evaluation of pt's status upon a dmission and devise an individualized program for Aquatic Therapy, Neuromuscular Reeducation, and Str engthening Achieving independence - to improve, our physical therapists will perform initial evaluation of pt's status upon admission and devise an individualized program for Community Reintegration Activities - Occupational Therapy ADL deficits - to improve, our occupation therapists will perform initial evaluation of pt's status upon admission and devise an individualized program for Bathing, Bed mobility, Community Reintegratio n, Cooking, Dressing, Eating, Fine Motor Skills, Grooming, Homemaking, Kitchen Mobility, Laundry, Pat ient Education, Safety Awareness, Splinting - Positioning, Transfers(Toilet, Tub, Shower), and Wheel Chair Management Need for med care manager - to improve, our occupation therapists will perform initial evaluation of pt's status upon admission and devise an individualized program for Caregiver Training Weakness - to improve, our occupation therapists will perform initial evaluation of pt's status upon admission and devise an individualized program for Aquatic Therapy, Balance, Endurance, UE ROM, and UE strengthening - Other See attached MAR (Medication Administration Record) - Diet Type Continue Regular - Diet - Liquid Texture Continue Regular - Tube Feed Continue N/A - Bladder care per protocol - Weight Bearing Precaution WBAT left LE - Skin care per protocol - Diet - Solid Texture Continue Regular - Shower allowing shower for Dementia, TBI, Stroke, or others FUNCTIONAL STATUS: UPDATED AT WEEKLY TEAM CONFERENCE - Bladder Same accident frequency: 7-Ind - No accidents in the past 7 days - Bowel Same accident frequency: 7-Ind - No accidents in the past 7 days - Walking Same score based on distance walked: 0(N/A) - Wheelchair Same score based on distance traveled: 0(N/A) FUNCTIONAL STATUS: - Self-Care A. Eating Ind B. Grooming Ind C. Bathing sup D. Dressing - Upper sup E. Dressing - Lower Chance F. Toileting Dayana - Sphincter Control G. Bladder control Ind H. Bowel control Ind - Transfers Control I. Bed/Chair/Wheelchair Dayana J. Toilet Dayana K. Tub/Shower sup - Locomotion L. Walk/Wheelchair (B) sup M. Stairs sup - Communication N. Comprehension (B) Dayana O. Expression (B) Dayana - Social Cognition P. Social Interaction Ind Q. Problem Solving Dayana R. Memory Ind - Endurance Good - Balance Fair - Safety Awareness Good QI SCORES: - Self-Care A. Eating 04-Supervision or touching assistance B. Oral hygiene 03-Partial/moderate assistance C. Toileting hygiene 03-Partial/moderate assistance E. Shower/bathe self 03-Partial/moderate assistance F. Upper body dressing 03-Partial/moderate assistance G. Lower body dressing 03-Partial/moderate assistance H. Putting on/taking off footwear 88-Not attempted due to medical condition or safety concerns - Mobility A. Roll left and right 03-Partial/moderate assistance B. Sit to lying 03-Partial/moderate assistance C. Lying to sitting on side of bed 03-Partial/moderate assistance D. Sit to stand 03-Partial/moderate assistance E. Chair/hfs-lo-[id number] transfer 03-Partial/moderate assistance F. Toilet transfer 03-Partial/moderate assistance G. Car transfer 88-Not attempted due to medical condition or safety concerns I. Walk 10 feet 03-Partial/moderate assistance J. Walk 50 feet with two turns 03-Partial/moderate assistance K. Walk 150 feet 03-Partial/moderate assistance L. Walking 10 feet on uneven surfaces 88-Not attempted due to medical condition or safety concerns M. 1 step (curb) 88-Not attempted due to medical condition or safety concerns N. 4 steps 88-Not attempted due to medical condition or safety concerns O. 12 steps 88-Not attempted due to medical condition or safety concerns P. Picking up object 88-Not attempted due to medical condition or safety concerns R. Wheel 50 feet with two turns 88-Not attempted due to medical condition or safety concerns S. Wheel 150 feet 88-Not attempted due to medical condition or safety concerns - Bladder and Bowel Bladder continence Bowel continence - Endurance Fair - Balance Fair - Safety Awareness Fair [facility] DEFICITS: Self-Care, Mobility, Endurance, Balance, and Safety Awareness SIGNATURE PANEL: (CDT)
[2021-07-15] MEDS: MELATONIN 3 MG TABLET PO PRN (21:49)
[2021-07-15] MEDS: ATORVASTATIN 40 MG TAB PO SCH (21:49)
[2021-07-16] MEDS: INSULIN -REGULAR HUMAN 50 UNIT/0.5 ML ML SQ SCH ×4 (07:30→21:00)
[2021-07-16] MEDS: CRANBERRY EXTRACT 400 MG CAPSULE PO SCH ×2 (08:00→19:14)
[2021-07-16] MEDS: CLOPIDOGREL 75 MG TABLET PO SCH (09:54)
[2021-07-16] MEDS: APIXABAN 2.5 MG TABLET PO SCH ×2 (09:54→19:15)
[2021-07-16] MEDS: METFORMIN ER 500 MG TAB PO SCH ×2 (09:54→17:30)
[2021-07-16] MEDS: GLIMEPIRIDE 2 MG TABLET PO SCH (09:55)
--- NOTE | 2021-07-16 10:05 | P.RH.PN ---
Estimated Length of Stay: 9 Expected Discharge Date: 07/21/21 Discharge Disposition Plan: Home Family Support: Yes Woods Overseer Goal: Mobility, Transfers, Self Care Vital Signs: Last Vital Signs Temp 97.2 F 07/16/21 06:40 Pulse 63 07/16/21 06:40 Resp 18 07/16/21 06:40 BP 154/64 H 07/16/21 06:40 Pulse Ox 95 07/16/21 06:40 Laboratory: Laboratory Last Values WBC 13.50 K/uL (4.3-10.9) H 07/15/21 05:49 RBC 4.59 M/uL (3.86-4.86) 07/15/21 05:49 Hgb 13.6 g/dL (12.0-15.0) 07/15/21 05:49 Hct 40.1 % (36.0-45.0) 07/15/21 05:49 MCV 87.4 fL (80-100) 07/15/21 05:49 MCH 29.7 pg (27.0-35.0) 07/15/21 05:49 MCHC 34.0 g/dL (32.0-36.0) 07/15/21 05:49 RDW 13.9 % (12.1-15.2) 07/15/21 05:49 Plt Count 472 K/uL (152-406) H 07/15/21 05:49 MPV 9.2 fL (7.6-11.3) 07/15/21 05:49 Neutrophils % 44.8 % (41.7-73.7) 07/15/21 05:49 Lymphocytes % 37.7 % (15.3-44.8) 07/15/21 05:49 Monocytes % 12.2 % (3.3-12.3) 07/15/21 05:49 Eosinophils % 4.1 % (0-4.4) 07/15/21 05:49 Basophils % 1.2 % (0-1.3) 07/15/21 05:49 Absolute Neutrophils 6.1 K/uL (1.8-8.0) 07/15/21 05:49 Absolute Lymphocytes 5.1 K/uL (0.7-4.9) H 07/15/21 05:49 Absolute Monocytes 1.7 K/uL (0.1-1.3) H 07/15/21 05:49 Absolute Eosinophils 0.6 K/uL (0-0.5) H 07/15/21 05:49 Absolute Basophils 0.2 K/uL (0-0.5) 07/15/21 05:49 Sodium 142 mmol/L (136-145) 07/15/21 05:49 Potassium 4.5 mmol/L (3.5-5.1) 07/15/21 05:49 Chloride 110 mmol/L (98-107) H 07/15/21 05:49 Carbon Dioxide 29 mmol/L (21-32) 07/15/21 05:49 BUN 13 mg/dL (7-18) 07/15/21 05:49 Creatinine 0.60 mg/dL (0.55-1.3) 07/15/21 05:49 Estimated GFR > 90 mL/min (=/>90) 07/15/21 05:49 Glucose 110 mg/dL (74-106) H 07/15/21 05:49 POC Glucose 95 mg/dL (65-120) 07/16/21 06:44 Calcium 9.0 mg/dL (8.5-10.1) 07/15/21 05:49 Magnesium 2.1 mg/dL (1.8-2.4) 07/15/21 05:49 Albumin 2.8 g/dL (3.4-5.0) L 07/15/21 05:49 Prealbumin 11.7 mg/dL (20-40) L 07/15/21 05:49 Urine Color Cancelled 07/12/21 20:20 Urine Color Yellow (Yellow) 07/12/21 20:20 Urine Appearance Cancelled 07/12/21 20:20 Urine Appearance Clear (Clear) 07/12/21 20:20 Urine pH 5.5 (5.0-7.0) 07/12/21 20:20 Urine pH Cancelled 07/12/21 20:20 Ur Specific [employer] 1.010 (1.005-1.030) 07/12/21 20:20 Ur Specific [employer] Cancelled 07/12/21 20:20 Glucose (UA)(Auto) Cancelled 07/12/21 20:20 Glucose (UA)(Auto) Negative (Negative) 07/12/21 20:20 Urine Ketones Cancelled 07/12/21 20:20 Urine Ketones Negative (Negative) 07/12/21 20:20 Urine Blood Cancelled 07/12/21 20:20 Urine Blood Negative (Negative) 07/12/21 20:20 Urine Nitrite Cancelled 07/12/21 20:20 Urine Nitrite Negative (Negative) 07/12/21 20:20 Urine Bilirubin Cancelled 07/12/21 20:20 Urine Bilirubin Negative (Negative) 07/12/21 20:20 Urine Urobilinogen 2.0 mg/dL (0.2-1.0) H 07/12/21 20:20 Urine Urobilinogen Cancelled 07/12/21 20:20 Ur Leukocyte Esterase 2+ (Negative) H 07/12/21 20:20 Ur Leukocyte Esterase Cancelled 07/12/21 20:20 Urine RBC <5 /HPF (NONE SEEN) 07/12/21 20:20 Urine RBC Cancelled 07/12/21 20:20 Urine WBC 10-20 /HPF (<5) H 07/12/21 20:20 Urine WBC Cancelled 07/12/21 20:20 Ur Squamous Epith Cells <5 /HPF (NONE SEEN) 07/12/21 20:20 Ur Squamous Epith Cells Cancelled 07/12/21 20:20 Ur Urothelial Cells Cancelled 07/12/21 20:20 Calcium Oxalate Crystal Cancelled 07/12/21 20:20 Uric Acid Crystals Cancelled 07/12/21 20:20 Triple Phos Crystals Cancelled 07/12/21 20:20 Other Crystals Cancelled 07/12/21 20:20 Amorphous Sediment Cancelled 07/12/21 20:20 Glitter Cells Cancelled 07/12/21 20:20 Urine Bacteria <20 /HPF (<20) 07/12/21 20:20 Urine Bacteria Cancelled 07/12/21 20:20 Hyaline Casts Cancelled 07/12/21 20:20 Fine Granular Casts Cancelled 07/12/21 20:20 Coarse Granular Casts Cancelled 07/12/21 20:20 Waxy Casts Cancelled 07/12/21 20:20 RBC Casts Cancelled 07/12/21 20:20 WBC Casts Cancelled 07/12/21 20:20 Urine Mucus Cancelled 07/12/21 20:20 Urine Other Cancelled 07/12/21 20:20 Urine Trichomonas Cancelled 07/12/21 20:20 Urine Yeast Cancelled 07/12/21 20:20 Ur Yeast w Hyphae Cancelled 07/12/21 20:20 Urine Yeast (Budding) Cancelled 07/12/21 20:20 Urine Sperm Cancelled 07/12/21 20:20 Urine Culture Reflexed Cancelled 07/12/21 20:20 Urine Culture Reflexed Not needed 07/12/21 20:20 Urine Total Volume Cancelled 07/12/21 20:20 Urine Total Protein Cancelled 07/12/21 20:20 Urine Total Protein Negative (Negative) 07/12/21 20:20 Weight: 226 lb Wound Present: No Closed Surgical Incision Present: No Negative Pressure Wound Therapy Present: No Physician Update: Doing very well 750' walking and up and down 15 steps independently. Will work on walking without an assistive device. She works as a [employer] WORK[employer] and will require advanced rehab. Comment: no skin breakdown reported Functional Improvement: Patient has met all short-term and long-term goals, w/ the exception of a car transfer, due to lack of equipment. Patient presents w/ great work ethic, and follows instructions very well. Summary: Patient's care plan and long-term goals have been reviewed and revised as necessary. Please see the Rehabilitation Signature page for all necessary signatures.
[2021-07-16] MEDS: ATORVASTATIN 40 MG TAB PO SCH (19:14)
[2021-07-17 05:52] VITALS: BMI 42.3
[2021-07-17] MEDS: INSULIN -REGULAR HUMAN 50 UNIT/0.5 ML ML SQ SCH ×4 (07:15→19:21)
[2021-07-17] MEDS: APIXABAN 2.5 MG TABLET PO SCH ×2 (08:23→19:20)
[2021-07-17] MEDS: CLOPIDOGREL 75 MG TABLET PO SCH (08:23)
[2021-07-17] MEDS: GLIMEPIRIDE 2 MG TABLET PO SCH (08:23)
[2021-07-17] MEDS: METFORMIN ER 500 MG TAB PO SCH ×2 (08:23→16:58)
[2021-07-17 08:38] LABS: Absolute Lymphocytes (CBC) 4.6 K/uL (0.7-4.9); Basophils % 0.6 % (0-1.3); Lymphocytes % 36.6 % (15.3-44.8); MPV 9.2 fL (7.6-11.3); RBC Red Blood Cell Count 4.86 M/uL (3.86-4.86)
[2021-07-17 08:56] LABS: Potassium 4.5 mmol/L (3.5-5.1)
[2021-07-17] MEDS: CRANBERRY EXTRACT 400 MG CAPSULE PO SCH ×2 (11:11→19:21)
[2021-07-17] MEDS: ATORVASTATIN 40 MG TAB PO SCH (19:20)
[2021-07-18] MEDS: INSULIN -REGULAR HUMAN 50 UNIT/0.5 ML ML SQ SCH ×4 (07:30→18:55)
[2021-07-18] MEDS: METFORMIN ER 500 MG TAB PO SCH ×2 (08:21→17:47)
[2021-07-18] MEDS: GLIMEPIRIDE 2 MG TABLET PO SCH (08:21)
[2021-07-18] MEDS: APIXABAN 2.5 MG TABLET PO SCH ×2 (08:22→18:55)
[2021-07-18] MEDS: CLOPIDOGREL 75 MG TABLET PO SCH (08:23)
[2021-07-18] MEDS: CRANBERRY EXTRACT 400 MG CAPSULE PO SCH ×2 (09:21→18:55)
[2021-07-18] MEDS: ATORVASTATIN 40 MG TAB PO SCH (18:55)
[2021-07-19] MEDS: INSULIN -REGULAR HUMAN 50 UNIT/0.5 ML ML SQ SCH ×4 (07:10→19:58)
[2021-07-19] MEDS: GLIMEPIRIDE 2 MG TABLET PO SCH (08:14)
[2021-07-19] MEDS: METFORMIN ER 500 MG TAB PO SCH ×2 (08:14→16:58)
[2021-07-19] MEDS: CLOPIDOGREL 75 MG TABLET PO SCH (08:15)
[2021-07-19] MEDS: APIXABAN 2.5 MG TABLET PO SCH ×2 (08:15→19:58)
[2021-07-19] MEDS: CRANBERRY EXTRACT 400 MG CAPSULE PO SCH ×2 (10:18→19:56)
--- NOTE | 2021-07-19 18:29 | R.PN ---
PROGRESS NOTES ENCOUNTER DATE AND TIME: 07/19/2021 18:23 (CDT) NAME RANJEET LIMON DATE OF : 1955 DATE OF ADMISSION: 07/13/2021 12:57 (CDT) ACUTE CVACHIEF COMPLAINT: Right hemispheric stroke with left sided deficits SUBJECTIVE: Pt denied any depression. Pt denied any Shortness of Breath. WBC 12.6, Plt 411, Glu 85-128, prealbumin 11.7, glucose 78 to 144, UA 2+ esterase, WBC 10-20 Ambulated 750' with independence using a rolling walker. Walked 190' with contact guard assistance an d single prong cane. Up and down 15 steps with modified independence. Wheelchair mobility 150' with m odified independence. VITAL SIGNS Temperature: 98.0 F SBP/DBP: 115/71 Pulse: 59 Resp: 16 MEDICATION ALLERGIES: No Known Drug Allergies (NKDA) ENVIRONMENTAL ALLERGIES: - Substance Allergies None Known - Other Allergies None Known NURSING: - Shower allowing shower - Bladder care per protocol - Skin care per protocol PRECAUTIONS: - Weight Bearing Precaution WBAT left LE ACTIVITIES OOB only with supervision THERAPIES: - Dietary and Nutrition Adequate Nutrition. Nutritional Education. Nutritional Supplements. - Occupational Therapy Cognitive Retraining. Visual Perceptual Training. - Speech Therapy Cognitive Training. Expressive Language Skills. Memory Strategies. Receptive Language Skills. Speech Intelligibility Training. PHYSICAL EXAM - Gen Alert and awake Lying in bed No apparent distress Oriented to: person, time, and place - Skin No breakdown No abnormalities - Eyes No abnormalities - ENMT No abnormalities - Neck No abnormalities - CVS RRR - Chest No abnormalities - Abd + bowel sounds - GI Soft Deferred - No abnormalities - Ext No significant edema - MSK 4+/5 weakness in left lower extremity - Neuro 4/5 strength left upper and lower extremities. - Psych No abnormalities ASSESSMENT: Pt. is a 66 yo Right-handed white female.On 07/08/2021 Pt. presented to [facility] with sudden onset of left-side weakness.On 07/08/2021 she was admitted to [facility] with sean gnosis ACUTE CVA.Her impairment category is Stroke 01 - Left Body (Right Brain) (01.1).Pre-morbidly, Pt. was independent/mod-I in Locomotion, Safety Awareness, Social Cognition, and Balance; and she puga d good Transfers Control, Sphincter Control, Self-Care, Communication, and Endurance.Currently, she h as deficits of Locomotion, Safety Awareness, Balance, Transfers Control, Self-Care, and Endurance.Pt. is now referred to [facility] for acute in-patient rehabilitation in order to maximize patient's functional independence in activities of daily living, strength, ROM, and mobilit y.- Rehab Goal Patient has realistic goal of being discharged at assistance level 7-Ind to reside at Home with Fami ly/Relatives. WBC 12.0, Plt 481, BMP is essentially unremarkable. Prealbumin 10.9, CRP 20.0, glucose 100 to 203. UA shows esterase 2+. Covid-19 is positive 07/08/21 and 07/12/21.Now beginning to ambulate 500' to 900' w ith a standby assistance using a rolling walker.MDM/PLAN: - Physical Therapy Gait dysfunction - to improve, our physical therapists will perform initial evaluation of pt's statu s upon admission and devise an individualized program for Gait Training, and Wheel Chair mobility Inability to transfer - to improve, our physical therapists will perform initial evaluation of pt's status upon admission and devise an individualized program for Bed mobility Need for home safety evaluation - to improve, our physical therapists will perform initial evaluatio n of pt's status upon admission and devise an individualized program for Home Evaluation Need in caregiver upon discharge - to improve, our physical therapists will perform initial evaluati on of pt's status upon admission and devise an individualized program for Caregiver Training New precaution - to improve, our physical therapists will perform initial evaluation of pt's status upon admission and devise an individualized program for Patient precaution education Edema - to improve, our physical therapists will perform initial evaluation of pt's status upon admi ssion and devise an individualized program for Elevation Training, and Lymphedema Therapy Poor balance - to improve, our physical therapists will perform initial evaluation of pt's status up on admission and devise an individualized program for Balance Training Poor endurance - to improve, our physical therapists will perform initial evaluation of pt's status upon admission and devise an individualized program for Endurance Training Weakness - to improve, our physical therapists will perform initial evaluation of pt's status upon a dmission and devise an individualized program for Aquatic Therapy, Neuromuscular Reeducation, and Str engthening Achieving independence - to improve, our physical therapists will perform initial evaluation of pt's status upon admission and devise an individualized program for Community Reintegration Activities - Occupational Therapy ADL deficits - to improve, our occupation therapists will perform initial evaluation of pt's status upon admission and devise an individualized program for Bathing, Bed mobility, Community Reintegratio n, Cooking, Dressing, Eating, Fine Motor Skills, Grooming, Homemaking, Kitchen Mobility, Laundry, Pat ient Education, Safety Awareness, Splinting - Positioning, Transfers(Toilet, Tub, Shower), and Wheel Chair Management Need for critical care physician - to improve, our occupation therapists will perform initial evaluation of pt's status upon admission and devise an individualized program for Caregiver Training Weakness - to improve, our occupation therapists will perform initial evaluation of pt's status upon admission and devise an individualized program for Aquatic Therapy, Balance, Endurance, UE ROM, and UE strengthening - Other See attached MAR (Medication Administration Record) - Diet Type Continue Regular - Diet - Liquid Texture Continue Regular - Tube Feed Continue N/A - Bladder care per protocol - Weight Bearing Precaution WBAT left LE - Skin care per protocol - Diet - Solid Texture Continue Regular - Shower allowing shower for Dementia, TBI, Stroke, or others FUNCTIONAL STATUS: UPDATED AT WEEKLY TEAM CONFERENCE - Bladder Same accident frequency: 7-Ind - No accidents in the past 7 days - Bowel Same accident frequency: 7-Ind - No accidents in the past 7 days - Walking Same score based on distance walked: 0(N/A) - Wheelchair Same score based on distance traveled: 0(N/A) FUNCTIONAL STATUS: - Self-Care A. Eating Ind B. Grooming Ind C. Bathing sup D. Dressing - Upper sup E. Dressing - Lower Chance F. Toileting Dayana - Sphincter Control G. Bladder control Ind H. Bowel control Ind - Transfers Control I. Bed/Chair/Wheelchair Dayana J. Toilet Dayana K. Tub/Shower sup - Locomotion L. Walk/Wheelchair (B) sup M. Stairs sup - Communication N. Comprehension (B) Dayana O. Expression (B) Dayana - Social Cognition P. Social Interaction Ind Q. Problem Solving Dayana R. Memory Ind - Endurance Good - Balance Fair - Safety Awareness Good QI SCORES: - Self-Care A. Eating 04-Supervision or touching assistance B. Oral hygiene 03-Partial/moderate assistance C. Toileting hygiene 03-Partial/moderate assistance E. Shower/bathe self 03-Partial/moderate assistance F. Upper body dressing 03-Partial/moderate assistance G. Lower body dressing 03-Partial/moderate assistance H. Putting on/taking off footwear 88-Not attempted due to medical condition or safety concerns - Mobility A. Roll left and right 03-Partial/moderate assistance B. Sit to lying 03-Partial/moderate assistance C. Lying to sitting on side of bed 03-Partial/moderate assistance D. Sit to stand 03-Partial/moderate assistance E. Chair/[id number] transfer 03-Partial/moderate assistance F. Toilet transfer 03-Partial/moderate assistance G. Car transfer 88-Not attempted due to medical condition or safety concerns I. Walk 10 feet 03-Partial/moderate assistance J. Walk 50 feet with two turns 03-Partial/moderate assistance K. Walk 150 feet 03-Partial/moderate assistance L. Walking 10 feet on uneven surfaces 88-Not attempted due to medical condition or safety concerns M. 1 step (curb) 88-Not attempted due to medical condition or safety concerns N. 4 steps 88-Not attempted due to medical condition or safety concerns O. 12 steps 88-Not attempted due to medical condition or safety concerns P. Picking up object 88-Not attempted due to medical condition or safety concerns R. Wheel 50 feet with two turns 88-Not attempted due to medical condition or safety concerns S. Wheel 150 feet 88-Not attempted due to medical condition or safety concerns - Bladder and Bowel Bladder continence Bowel continence - Endurance Fair - Balance Fair - Safety Awareness Fair CURRENT [facility]. DEFICITS: Self-Care, Mobility, Endurance, Balance, and Safety Awareness SIGNATURE PANEL: (CDT)
[2021-07-19] MEDS: MELATONIN 3 MG TABLET PO PRN (19:57)
[2021-07-19] MEDS: ATORVASTATIN 40 MG TAB PO SCH (19:58)
[2021-07-20] MEDS: INSULIN -REGULAR HUMAN 50 UNIT/0.5 ML ML SQ SCH ×4 (07:30→20:13)
[2021-07-20] MEDS: METFORMIN ER 500 MG TAB PO SCH ×2 (07:52→17:00)
[2021-07-20] MEDS: APIXABAN 2.5 MG TABLET PO SCH ×2 (07:52→20:12)
[2021-07-20] MEDS: CLOPIDOGREL 75 MG TABLET PO SCH (07:52)
[2021-07-20] MEDS: GLIMEPIRIDE 2 MG TABLET PO SCH (07:53)
[2021-07-20] MEDS: CRANBERRY EXTRACT 400 MG CAPSULE PO SCH ×2 (07:53→20:00)
--- NOTE | 2021-07-20 18:10 | R.PN ---
PROGRESS NOTES ENCOUNTER DATE AND TIME: 07/20/2021 18:06 (CDT) NAME RANJEET LIMON DATE OF : 1955 DATE OF ADMISSION: 07/13/2021 12:57 (CDT) ACUTE CVACHIEF COMPLAINT: Right hemispheric stroke with left sided deficits SUBJECTIVE: Pt denied any depression. Pt denied any Shortness of Breath. WBC 12.6, Plt 411, Glu 85-128, prealbumin 11.7, glucose 71 to 103, UA 2+ esterase, WBC 10-20 Ambulated 500' with independence using a rolling walker. Walked 50' with contact guard assistance and single prong cane. Up and down 15 steps with independence. Wheelchair mobility 250' with independenc e. VITAL SIGNS Temperature: 97.6 F SBP/DBP: 116/52 Pulse: 60 Resp: 15 MEDICATION ALLERGIES: No Known Drug Allergies (NKDA) ENVIRONMENTAL ALLERGIES: - Substance Allergies None Known - Other Allergies None Known NURSING: - Shower allowing shower - Bladder care per protocol - Skin care per protocol PRECAUTIONS: - Weight Bearing Precaution WBAT left LE ACTIVITIES OOB only with supervision THERAPIES: - Dietary and Nutrition Adequate Nutrition. Nutritional Education. Nutritional Supplements. - Occupational Therapy Cognitive Retraining. Visual Perceptual Training. - Speech Therapy Cognitive Training. Expressive Language Skills. Memory Strategies. Receptive Language Skills. Speech Intelligibility Training. PHYSICAL EXAM - Gen Alert and awake Lying in bed No apparent distress Oriented to: person, time, and place - Skin No breakdown No abnormalities - Eyes No abnormalities - ENMT No abnormalities - Neck No abnormalities - CVS RRR - Chest No abnormalities - Abd + bowel sounds - GI Soft Deferred - No abnormalities - Ext No significant edema - MSK 4+/5 weakness in left lower extremity - Neuro 4/5 strength left upper and lower extremities. - Psych No abnormalities ASSESSMENT: Pt. is a 66 yo Right-handed white female.On 07/08/2021 Pt. presented to [facility] with sudden onset of left-side weakness.On 07/08/2021 she was admitted to [facility] with sean gnosis ACUTE CVA.Her impairment category is Stroke 01 - Left Body (Right Brain) (01.1).Pre-morbidly, Pt. was independent/mod-I in Locomotion, Safety Awareness, Social Cognition, and Balance; and she puga d good Transfers Control, Sphincter Control, Self-Care, Communication, and Endurance.Currently, she h as deficits of Locomotion, Safety Awareness, Balance, Transfers Control, Self-Care, and Endurance.Pt. is now referred to [facility] for acute in-patient rehabilitation in order to maximize patient's functional independence in activities of daily living, strength, ROM, and mobilit y.- Rehab Goal Patient has realistic goal of being discharged at assistance level 7-Ind to reside at Home with Fami ly/Relatives. WBC 12.0, Plt 481, BMP is essentially unremarkable. Prealbumin 10.9, CRP 20.0, glucose 100 to 203. UA shows esterase 2+. Covid-19 is positive 07/08/21 and 07/12/21.Now beginning to ambulate 500' to 900' w ith a standby assistance using a rolling walker.MDM/PLAN: - Physical Therapy Gait dysfunction - to improve, our physical therapists will perform initial evaluation of pt's statu s upon admission and devise an individualized program for Gait Training, and Wheel Chair mobility Inability to transfer - to improve, our physical therapists will perform initial evaluation of pt's status upon admission and devise an individualized program for Bed mobility Need for home safety evaluation - to improve, our physical therapists will perform initial evaluatio n of pt's status upon admission and devise an individualized program for Home Evaluation Need in caregiver upon discharge - to improve, our physical therapists will perform initial evaluati on of pt's status upon admission and devise an individualized program for Caregiver Training New precaution - to improve, our physical therapists will perform initial evaluation of pt's status upon admission and devise an individualized program for Patient precaution education Edema - to improve, our physical therapists will perform initial evaluation of pt's status upon admi ssion and devise an individualized program for Elevation Training, and Lymphedema Therapy Poor balance - to improve, our physical therapists will perform initial evaluation of pt's status up on admission and devise an individualized program for Balance Training Poor endurance - to improve, our physical therapists will perform initial evaluation of pt's status upon admission and devise an individualized program for Endurance Training Weakness - to improve, our physical therapists will perform initial evaluation of pt's status upon a dmission and devise an individualized program for Aquatic Therapy, Neuromuscular Reeducation, and Str engthening Achieving independence - to improve, our physical therapists will perform initial evaluation of pt's status upon admission and devise an individualized program for Community Reintegration Activities - Occupational Therapy ADL deficits - to improve, our occupation therapists will perform initial evaluation of pt's status upon admission and devise an individualized program for Bathing, Bed mobility, Community Reintegratio n, Cooking, Dressing, Eating, Fine Motor Skills, Grooming, Homemaking, Kitchen Mobility, Laundry, Pat ient Education, Safety Awareness, Splinting - Positioning, Transfers(Toilet, Tub, Shower), and Wheel Chair Management Need for career technical supervisor - to improve, our occupation therapists will perform initial evaluation of pt's status upon admission and devise an individualized program for Caregiver Training Weakness - to improve, our occupation therapists will perform initial evaluation of pt's status upon admission and devise an individualized program for Aquatic Therapy, Balance, Endurance, UE ROM, and UE strengthening - Other See attached MAR (Medication Administration Record) - Diet Type Continue Regular - Diet - Liquid Texture Continue Regular - Tube Feed Continue N/A - Bladder care per protocol - Weight Bearing Precaution WBAT left LE - Skin care per protocol - Diet - Solid Texture Continue Regular - Shower allowing shower for Dementia, TBI, Stroke, or others FUNCTIONAL STATUS: UPDATED AT WEEKLY TEAM CONFERENCE - Bladder Same accident frequency: 7-Ind - No accidents in the past 7 days - Bowel Same accident frequency: 7-Ind - No accidents in the past 7 days - Walking Same score based on distance walked: 0(N/A) - Wheelchair Same score based on distance traveled: 0(N/A) FUNCTIONAL STATUS: - Self-Care A. Eating Ind B. Grooming Ind C. Bathing sup D. Dressing - Upper sup E. Dressing - Lower Chance F. Toileting Dayana - Sphincter Control G. Bladder control Ind H. Bowel control Ind - Transfers Control I. Bed/Chair/Wheelchair Dayana J. Toilet Dayana K. Tub/Shower sup - Locomotion L. Walk/Wheelchair (B) sup M. Stairs sup - Communication N. Comprehension (B) Dayana O. Expression (B) Dayana - Social Cognition P. Social Interaction Ind Q. Problem Solving Dayana R. Memory Ind - Endurance Good - Balance Fair - Safety Awareness Good QI SCORES: - Self-Care A. Eating 04-Supervision or touching assistance B. Oral hygiene 03-Partial/moderate assistance C. Toileting hygiene 03-Partial/moderate assistance E. Shower/bathe self 03-Partial/moderate assistance F. Upper body dressing 03-Partial/moderate assistance G. Lower body dressing 03-Partial/moderate assistance H. Putting on/taking off footwear 88-Not attempted due to medical condition or safety concerns - Mobility A. Roll left and right 03-Partial/moderate assistance B. Sit to lying 03-Partial/moderate assistance C. Lying to sitting on side of bed 03-Partial/moderate assistance D. Sit to stand 03-Partial/moderate assistance E. Chair/zfr-cn-sknju transfer 03-Partial/moderate assistance F. Toilet transfer 03-Partial/moderate assistance G. Car transfer 88-Not attempted due to medical condition or safety concerns I. Walk 10 feet 03-Partial/moderate assistance J. Walk 50 feet with two turns 03-Partial/moderate assistance K. Walk 150 feet 03-Partial/moderate assistance L. Walking 10 feet on uneven surfaces 88-Not attempted due to medical condition or safety concerns M. 1 step (curb) 88-Not attempted due to medical condition or safety concerns N. 4 steps 88-Not attempted due to medical condition or safety concerns O. 12 steps 88-Not attempted due to medical condition or safety concerns P. Picking up object 88-Not attempted due to medical condition or safety concerns R. Wheel 50 feet with two turns 88-Not attempted due to medical condition or safety concerns S. Wheel 150 feet 88-Not attempted due to medical condition or safety concerns - Bladder and Bowel Bladder continence Bowel continence - Endurance Fair - Balance Fair - Safety Awareness Fair CURRENT [facility]. DEFICITS: Self-Care, Mobility, Endurance, Balance, and Safety Awareness SIGNATURE PANEL: (CDT)
[2021-07-20] MEDS: ATORVASTATIN 40 MG TAB PO SCH (20:12)
[2021-07-20] MEDS: MELATONIN 3 MG TABLET PO PRN (20:12)
[2021-07-21 07:20] VITALS: BP 112/54; TEMP 98
[2021-07-21] MEDS: INSULIN -REGULAR HUMAN 50 UNIT/0.5 ML ML SQ SCH ×2 (07:30→11:30)
[2021-07-21] MEDS: GLIMEPIRIDE 2 MG TABLET PO SCH (07:44)
[2021-07-21] MEDS: CLOPIDOGREL 75 MG TABLET PO SCH (07:44)
[2021-07-21] MEDS: METFORMIN ER 500 MG TAB PO SCH (07:44)
[2021-07-21] MEDS: APIXABAN 2.5 MG TABLET PO SCH (07:44)
[2021-07-21] MEDS: CRANBERRY EXTRACT 400 MG CAPSULE PO SCH (07:45)
--- NOTE | 2021-07-21 17:29 | R.PN ---
PROGRESS NOTES ENCOUNTER DATE AND TIME: 07/21/2021 17:27 (CDT) NAME RANJEET LIMON DATE OF : 1955 DATE OF ADMISSION: 07/13/2021 12:57 (CDT) ACUTE CVACHIEF COMPLAINT: Right hemispheric stroke with left sided deficits SUBJECTIVE: Pt denied any depression. Pt denied any Shortness of Breath. WBC 12.6, Plt 411, Glu 85-128, prealbumin 11.7, glucose 55 to 119, UA 2+ esterase, WBC 10-20 Ambulated 500' with independence using a rolling walker. Walked 50' with contact guard assistance and single prong cane. Up and down 15 steps with independence. Wheelchair mobility 250' with independenc e. VITAL SIGNS Temperature: 98.0 F SBP/DBP: 1112/54 Pulse: 62 Resp: 15 MEDICATION ALLERGIES: No Known Drug Allergies (NKDA) ENVIRONMENTAL ALLERGIES: - Substance Allergies None Known - Other Allergies None Known NURSING: - Shower allowing shower - Bladder care per protocol - Skin care per protocol PRECAUTIONS: - Weight Bearing Precaution WBAT left LE ACTIVITIES OOB only with supervision THERAPIES: - Dietary and Nutrition Adequate Nutrition. Nutritional Education. Nutritional Supplements. - Occupational Therapy Cognitive Retraining. Visual Perceptual Training. - Speech Therapy Cognitive Training. Expressive Language Skills. Memory Strategies. Receptive Language Skills. Speech Intelligibility Training. PHYSICAL EXAM - Gen Alert and awake Lying in bed No apparent distress Oriented to: person, time, and place - Skin No breakdown No abnormalities - Eyes No abnormalities - ENMT No abnormalities - Neck No abnormalities - CVS RRR - Chest No abnormalities - Abd + bowel sounds - GI Soft Deferred - No abnormalities - Ext No significant edema - MSK 4+/5 weakness in left lower extremity - Neuro 4/5 strength left upper and lower extremities. - Psych No abnormalities ASSESSMENT: Pt. is a 66 yo Right-handed white female.On 07/08/2021 Pt. presented to [facility] with sudden onset of left-side weakness.On 07/08/2021 she was admitted to [facility] with sean gnosis ACUTE CVA.Her impairment category is Stroke 01 - Left Body (Right Brain) (01.1).Pre-morbidly, Pt. was independent/mod-I in Locomotion, Safety Awareness, Social Cognition, and Balance; and she puga d good Transfers Control, Sphincter Control, Self-Care, Communication, and Endurance.Currently, she h as deficits of Locomotion, Safety Awareness, Balance, Transfers Control, Self-Care, and Endurance.Pt. is now referred to [facility] for acute in-patient rehabilitation in order to maximize patient's functional independence in activities of daily living, strength, ROM, and mobilit y.- Rehab Goal Patient has realistic goal of being discharged at assistance level 7-Ind to reside at Home with Fami ly/Relatives. WBC 12.0, Plt 481, BMP is essentially unremarkable. Prealbumin 10.9, CRP 20.0, glucose 100 to 203. UA shows esterase 2+. Covid-19 is positive 07/08/21 and 07/12/21.Now beginning to ambulate 500' to 900' w ith a standby assistance using a rolling walker.MDM/PLAN: - Physical Therapy Gait dysfunction - to improve, our physical therapists will perform initial evaluation of pt's statu s upon admission and devise an individualized program for Gait Training, and Wheel Chair mobility Inability to transfer - to improve, our physical therapists will perform initial evaluation of pt's status upon admission and devise an individualized program for Bed mobility Need for home safety evaluation - to improve, our physical therapists will perform initial evaluatio n of pt's status upon admission and devise an individualized program for Home Evaluation Need in caregiver upon discharge - to improve, our physical therapists will perform initial evaluati on of pt's status upon admission and devise an individualized program for Caregiver Training New precaution - to improve, our physical therapists will perform initial evaluation of pt's status upon admission and devise an individualized program for Patient precaution education Edema - to improve, our physical therapists will perform initial evaluation of pt's status upon admi ssion and devise an individualized program for Elevation Training, and Lymphedema Therapy Poor balance - to improve, our physical therapists will perform initial evaluation of pt's status up on admission and devise an individualized program for Balance Training Poor endurance - to improve, our physical therapists will perform initial evaluation of pt's status upon admission and devise an individualized program for Endurance Training Weakness - to improve, our physical therapists will perform initial evaluation of pt's status upon a dmission and devise an individualized program for Aquatic Therapy, Neuromuscular Reeducation, and Str engthening Achieving independence - to improve, our physical therapists will perform initial evaluation of pt's status upon admission and devise an individualized program for Community Reintegration Activities - Occupational Therapy ADL deficits - to improve, our occupation therapists will perform initial evaluation of pt's status upon admission and devise an individualized program for Bathing, Bed mobility, Community Reintegratio n, Cooking, Dressing, Eating, Fine Motor Skills, Grooming, Homemaking, Kitchen Mobility, Laundry, Pat ient Education, Safety Awareness, Splinting - Positioning, Transfers(Toilet, Tub, Shower), and Wheel Chair Management Need for pharmacy customer care specialist - to improve, our occupation therapists will perform initial evaluation of pt's status upon admission and devise an individualized program for Caregiver Training Weakness - to improve, our occupation therapists will perform initial evaluation of pt's status upon admission and devise an individualized program for Aquatic Therapy, Balance, Endurance, UE ROM, and UE strengthening - Other See attached MAR (Medication Administration Record) - Diet Type Continue Regular - Diet - Liquid Texture Continue Regular - Tube Feed Continue N/A - Bladder care per protocol - Weight Bearing Precaution WBAT left LE - Skin care per protocol - Diet - Solid Texture Continue Regular - Shower allowing shower for Dementia, TBI, Stroke, or others FUNCTIONAL STATUS: UPDATED AT WEEKLY TEAM CONFERENCE - Bladder Same accident frequency: 7-Ind - No accidents in the past 7 days - Bowel Same accident frequency: 7-Ind - No accidents in the past 7 days - Walking Same score based on distance walked: 0(N/A) - Wheelchair Same score based on distance traveled: 0(N/A) FUNCTIONAL STATUS: - Self-Care A. Eating Ind B. Grooming Ind C. Bathing sup D. Dressing - Upper sup E. Dressing - Lower Chance F. Toileting Dayana - Sphincter Control G. Bladder control Ind H. Bowel control Ind - Transfers Control I. Bed/Chair/Wheelchair Dayana J. Toilet Dayana K. Tub/Shower sup - Locomotion L. Walk/Wheelchair (B) sup M. Stairs sup - Communication N. Comprehension (B) Dayana O. Expression (B) Dayana - Social Cognition P. Social Interaction Ind Q. Problem Solving Dayana R. Memory Ind - Endurance Good - Balance Fair - Safety Awareness Good QI SCORES: - Self-Care A. Eating 04-Supervision or touching assistance B. Oral hygiene 03-Partial/moderate assistance C. Toileting hygiene 03-Partial/moderate assistance E. Shower/bathe self 03-Partial/moderate assistance F. Upper body dressing 03-Partial/moderate assistance G. Lower body dressing 03-Partial/moderate assistance H. Putting on/taking off footwear 88-Not attempted due to medical condition or safety concerns - Mobility A. Roll left and right 03-Partial/moderate assistance B. Sit to lying 03-Partial/moderate assistance C. Lying to sitting on side of bed 03-Partial/moderate assistance D. Sit to stand 03-Partial/moderate assistance E. Chair/zqa-rr-pdusf transfer 03-Partial/moderate assistance F. Toilet transfer 03-Partial/moderate assistance G. Car transfer 88-Not attempted due to medical condition or safety concerns I. Walk 10 feet 03-Partial/moderate assistance J. Walk 50 feet with two turns 03-Partial/moderate assistance K. Walk 150 feet 03-Partial/moderate assistance L. Walking 10 feet on uneven surfaces 88-Not attempted due to medical condition or safety concerns M. 1 step (curb) 88-Not attempted due to medical condition or safety concerns N. 4 steps 88-Not attempted due to medical condition or safety concerns O. 12 steps 88-Not attempted due to medical condition or safety concerns P. Picking up object 88-Not attempted due to medical condition or safety concerns R. Wheel 50 feet with two turns 88-Not attempted due to medical condition or safety concerns S. Wheel 150 feet 88-Not attempted due to medical condition or safety concerns - Bladder and Bowel Bladder continence Bowel continence - Endurance Fair - Balance Fair - Safety Awareness Fair CURRENT [facility]. DEFICITS: Self-Care, Mobility, Endurance, Balance, and Safety Awareness SIGNATURE PANEL: (CDT)
== END 2021-07-21 15:10 | disposition home or self-care (01) | DRG 57 ==
LOC: 5TH 17:53
PROVIDERS: ADMIT Psychiatry & Neurology Neurology with Special Qualifications in Child Neurology; ATTEND Psychiatry & Neurology Neurology with Special Qualifications in Child Neurology
DX: I69.354 Hemiplegia and hemiparesis following cerebral infarction affecting left non-dominant side (principal); I10 Essential (primary) hypertension; E11.9 Type 2 diabetes mellitus without complications
CPT/HCPCS: 36415; 80048; 81001; 82040; 82947; 83735; 84134; 85025; 87086; 87088; 92523; 97110; 97116; 97161; 97530; 97542; U0002

== ENCOUNTER → 2022-04-12 | Day surgery (SDC) | payer OTHER ==
--- NOTE | 2022-04-12 12:13 | RAD REPORT ---
EXAM DESCRIPTION: US - Breast Core BX w/US Guidance - 04/12/2022 9:42 am CLINICAL HISTORY: ICD R 92.8 breast mass COMPARISON: Mammogram April 06, 2022 TECHNIQUE: The risks, benefits alternatives to the procedure were explained to the patient and infor med consent obtained. Skin, subcutaneous and breast tissues anesthetized with lidocaine. Under sonographic guidance, three 14 gauge vacuum assisted core biopsies of the mass within the upper -outer right breast were obtained. 2 centimeter specimens taken. Tissue given to pathology. Subsequently a localizing clip was placed into the mass. Patient experienced no immediate complication IMPRESSION: Vacuum assisted core biopsies of the right breast mass
== END ==
LOC: DS 07:56
PROVIDERS: ATTEND Nurse Practitioner Family
DX: C50.911 Malignant neoplasm of unspecified site of right female breast (principal); Z17.0 Estrogen receptor positive status [ER+]
CPT/HCPCS: 19083; 88305

== ENCOUNTER 2022-05-04 08:38 | Observation (INO) | payer OTHER ==
[2022-05-03 09:55] LABS: Absolute Lymphocytes (CBC) 5.6 K/uL (0.7-4.9); Hematocrit 43.9 % (36.0-45.0); Lymphocytes % 37.6 % (15.3-44.8); MCV 90.2 fL (80-100); MPV 9.5 fL (7.6-11.3); RBC Red Blood Cell Count 4.87 M/uL (3.86-4.86)
--- NOTE | 2022-05-03 10:01 | RAD REPORT ---
EXAM DESCRIPTION: [place] (2 Views)05/03/2022 9:32 am CLINICAL HISTORY: Breast cancer/preop for cystectomy COMPARISON: 2020 FINDINGS: The lungs appear clear of acute infiltrate. The heart is normal size IMPRESSION: No acute abnormalities displayed
[2022-05-03 10:07] LABS: Potassium 4.4 mmol/L (3.5-5.1)
[2022-05-03 10:15] LABS: SARS-CoV-2 Antigen Rapid Res Negative (Negative)
--- NOTE | 2022-05-03 12:11 | EKG ---
Test Date: 2022-05-03 Test Time: 09:24:48 Chief Scientist: HARJIT MEASUREMENT RESULTS: Intervals: Rate: 74 NH: 150 QRSD: 92 QT: 398 QTc: 441 [place]: P: 27 NH: 150 QRS: 42 T: 41 INTERPRETIVE STATEMENTS: Normal sinus rhythm Possible Inferior infarct, age undetermined Abnormal ECG Compared to ECG 07/08/2021 11:42:27 Myocardial infarct finding now present Electronically Signed On 05-03-22 12:10:52 CDT by Oziel Levin
[2022-05-04] MEDS ORDERED: CEFAZOLIN SODIUM 1 GM/VIAL ONE (09:09)
[2022-05-04] MEDS ORDERED: NA CHLORIDE 0.9% 1,000 ML ONE ×2 (09:09→12:12)
[2022-05-04] MEDS ORDERED: propofoL 200 MG/20 ML VIAL IV ONE (10:08)
[2022-05-04] MEDS ORDERED: MIDAZOLAM HCL 2 MG/2 ML INJ ONE (10:08)
[2022-05-04] MEDS ORDERED: ROCURONIUM 50 MG/5 ML VIAL IV ONE (10:08)
[2022-05-04] MEDS ORDERED: LIDOCAINE 1% MPF 5 ML VIAL ONE (10:08)
[2022-05-04] MEDS ORDERED: FENTANYL CITR 250 MCG/5 ML ONE (10:08)
[2022-05-04] MEDS ORDERED: NS 0.9% VIAL 10 ML ONE ×2 (10:09→11:33)
[2022-05-04] MEDS ORDERED: dexAMETHasone 10 MG/ML VIAL ONE (11:33)
[2022-05-04] MEDS ORDERED: KETOROLAC 30 MG/ML INJ ONE (11:33)
[2022-05-04] MEDS ORDERED: EPHEDRINE SULF 50 MG/ML VIAL ONE (11:33)
[2022-05-04] MEDS ORDERED: ONDANSETRON 4 MG/2 ML VIAL ONE (11:34)
[2022-05-04] MEDS ORDERED: GLYCOPYRROLATE 0.2 MG/ML SYR ONE (13:13)
[2022-05-04] MEDS ORDERED: FENTANYL CITR 100 MCG/2 ML ONE (13:43)
[2022-05-04] MEDS: NA CHLORIDE 0.9% 1,000 ML ONE ×6 (13:48→14:42)
--- NOTE | 2022-05-04 14:23 | P.BOP ---
Preoperative diagnosis: breast cancer, hx of stroke on blood thinners, diabetes Postoperative diagnosis: same Primary procedure: 1. Right modified radical mastectomy Secondary procedure: 2. Left simple mastectomy Nursing [facility] Tutor: Dione Ramirez (Karin) Estimated blood loss: <100cc Specimen: Right breast and axillary dissection , left breast Findings: see dicta Anesthesia: General Complications: None Drain(s): MARYLU drain (right side x3, left side x 2) Transferred to: Recovery Room Condition: Good
[2022-05-04] MEDS ORDERED: ONDANSETRON 4 MG/2 ML VIAL IV PRN (15:03)
[2022-05-04] MEDS ORDERED: HYDROMORPHONE HCL 1 MG/ML INJ ONE (15:41)
[2022-05-04] MEDS: CEFOXITIN 1 GM in NA CHLORIDE 0.9% 50 ML IVPB SCH (17:29)
[2022-05-04] MEDS: HYDROMORPHONE HCL 1 MG/ML INJ IV PRN ×2 (17:30→20:30)
[2022-05-04] MEDS: NA CHLORIDE 0.9% 1,000 ML IV SCH (17:36)
[2022-05-04 18:01] VITALS: BMI 43.2
[2022-05-04] MEDS ORDERED: GLUCAGON 1 MG/VIAL IM PRN (20:50)
[2022-05-04] MEDS ORDERED: D50W 25 GM/50 ML SYRINGE IV PRN (20:50)
[2022-05-04] MEDS ORDERED: D10W 125 ML IV SCH (21:00)
[2022-05-04] MEDS: INSULIN -REGULAR HUMAN 50 UNIT/0.5 ML ML SQ SCH (21:27)
--- NOTE | 2022-05-04 23:11 | P.CNS ---
Date of Consult: 05/04/22 Reason for Consult: Assistance with medical management Requesting Physician: Dane Frias Chief Complaint: Status post bilateral mastectomy History of Present Illness: patient is a 67-year-old female who presents to the hospital for surgery. Patient had bilateral mastectomy for breast cancer. Patient was admitted for overnight stay. I was consulted for medical management as patient has a history of hypertension and diabetes. Patient also with a BMI of 41. I will admit the patient and anticipate discharge in the morning. Allergies pineapple Allergy (Verified 05/03/22 09:00) Anaphylaxis Home Medications: Atorvastatin Calcium [Lipitor] 40 mg PO BEDTIME #30 tab 07/21/21 Clopidogrel Bisulfate [Plavix*] 75 mg PO DAILY #30 tablet 07/21/21 Glimepiride 1 mg PO DAILY #30 07/21/21 Metformin ER [Glucophage ER*] 500 mg PO BIDWM #60 tab.sa 07/21/21 LORazepam [Ativan*] 0.5 mg PO BID PRN 05/03/22 Losartan Potassium 100 mg PO DAILY 05/03/22 - Past Medical/Surgical History Diabetic: Yes -: HTN -: NIDDM -: TIA -: tobacco abuse -: Bilateral mastectomy - Family History Father Family History: Reviewed- Non-Contributory - Social History Smoking Status: Current every day smoker Alcohol use: No CD- Drugs: No Caffeine use: Yes Review of Systems 10-point ROS is otherwise unremarkable Physical Examination Temp Pulse Resp BP Pulse Ox 97.9 F 96 H 17 116/57 L 94 05/04/22 20:00 05/04/22 20:00 05/04/22 20:00 05/04/22 20:00 05/04/22 20:00 General: Alert, In no apparent distress, Oriented x3 HEENT: Atraumatic, PERRLA, Mucous membr. moist/pink, EOMI, Sclerae nonicteric Neck: Supple, 2+ carotid pulse no bruit, No LAD, Without JVD or thyroid abnormality Respiratory: Clear to auscultation bilaterally, Normal air movement Cardiovascular: Regular rate/rhythm, Normal S1 S2 Gastrointestinal: Normal bowel sounds, No tenderness Musculoskeletal: No tenderness Integumentary: No rashes Neurological: Normal gait, Normal speech, Normal tone, Normal affect Lymphatics: No axilla or inguinal lymphadenopathy - Problems (1) S/P bilateral mastectomy Current Visit: Yes Status: Acute (2) HTN (hypertension) Current Visit: Yes Status: Acute (3) DM2 (diabetes mellitus, type 2) Current Visit: Yes Status: Acute (4) BMI 40.0-44.9, adult Current Visit: Yes Status: Acute Conclusions/ Impression: plan: 1. Strict blood pressure and blood sugar control 2. Postop management per General surgery 3. Continue antibiotics prophylactically 4. Pain control 5. DVT prophylaxis 6. Gi and DVT prophylaxis Critical Care: No Time Spent Managing Pts care (In Minutes): 45
[2022-05-05] MEDS: CEFOXITIN 1 GM in NA CHLORIDE 0.9% 50 ML IVPB SCH ×2 (01:14→06:31)
[2022-05-05] MEDS: HYDROCODONE/APAP 5/325 MG TAB PO PRN ×2 (01:17→07:10)
[2022-05-05] MEDS: HYDROMORPHONE HCL 1 MG/ML INJ IV PRN (04:40)
[2022-05-05 06:06] LABS: Absolute Lymphocytes (CBC) 2.8 K/uL (0.7-4.9); Hematocrit 38.1 % (36.0-45.0); Lymphocytes % 10.4 % (15.3-44.8); MCV 91.5 fL (80-100); RBC Red Blood Cell Count 4.17 M/uL (3.86-4.86)
[2022-05-05 06:08] LABS: Potassium 4.8 mmol/L (3.5-5.1)
[2022-05-05] MEDS: NA CHLORIDE 0.9% 1,000 ML IV SCH (06:31)
[2022-05-05] MEDS ORDERED: LORAZEPAM 0.5 MG TABLET PO PRN (08:45)
[2022-05-05] MEDS ORDERED: LOSARTAN POTASSIUM 50 MG TABLET PO SCH (09:00)
[2022-05-05] MEDS: INSULIN -REGULAR HUMAN 50 UNIT/0.5 ML ML SQ SCH (09:01)
--- NOTE | 2022-05-05 09:26 | P.DS ---
Admission Date: 05/04/22 Discharge Date: 05/05/22 Disposition: ROUTINE DISCHARGE Discharge Condition: GOOD Reason for Admission: Status post bilateral mastectomy Vital Signs/Physical Exam: Temp Pulse Resp BP Pulse Ox 97.1 F 84 17 113/58 L 95 05/05/22 04:00 05/05/22 04:00 05/05/22 07:10 05/05/22 04:00 05/05/22 07:10 General: Alert, In no apparent distress, Oriented x3, Cooperative HEENT: Normocephalic, PERRLA Neck: Supple Cardiovascular: No edema, Normal pulses Gastrointestinal: Soft and benign, No tenderness, No rebound, No guarding Musculoskeletal: No swelling, No erythema, No tenderness, No warmth Integumentary: No rashes, No breakdown Neurological: Normal speech, Normal strength at 5/5 x4 extr, Normal tone Laboratory Data at Discharge: WBC 26.6 K/uL (4.3-10.9) H* D 05/05/22 05:21 Hgb 12.5 g/dL (12.0-15.0) 05/05/22 05:21 Hct 38.1 % (36.0-45.0) 05/05/22 05:21 Plt Count 299 K/uL (152-406) 05/05/22 05:21 Sodium 137 mmol/L (136-145) 05/05/22 05:21 Potassium 4.8 mmol/L (3.5-5.1) 05/05/22 05:21 BUN 22 mg/dL (7-18) H 05/05/22 05:21 Creatinine 0.86 mg/dL (0.55-1.3) 05/05/22 05:21 Glucose 223 mg/dL (74-106) H 05/05/22 05:21 Home Medications: Atorvastatin Calcium [Lipitor] 40 mg PO BEDTIME #30 tab 07/21/21 Clopidogrel Bisulfate [Plavix*] 75 mg PO DAILY #30 tablet 07/21/21 Glimepiride 1 mg PO DAILY #30 07/21/21 Metformin ER [Glucophage ER*] 500 mg PO BIDWM #60 tab.sa 07/21/21 LORazepam [Ativan*] 0.5 mg PO BID PRN 05/03/22 Losartan Potassium 100 mg PO DAILY 05/03/22 Physician Discharge Instructions: KEep surgical area intact Record MARYLU drain output q24h Diet: ADA Activity: No lifting more than 10 lbs Followup: Sonia Chi NP [Primary Care Provider] - 1 Week Dane Frias MD [ACTIVE - CAN ADMIT] - 05/09/22
[2022-05-05 09:28] VITALS: BP 108/59; TEMP 96.9
[2022-05-05 10:01] LABS: Blood Morphology Comment NOTED (NOT SEEN); Hypochromasia 2+; Platelet Estimate ADEQ
[2022-05-05 11:48] VITALS: O2SAT 94
[2022-05-05] MEDS ORDERED: METFORMIN ER 500 MG TAB PO SCH (17:00)
[2022-05-05] MEDS ORDERED: ATORVASTATIN 40 MG TAB PO SCH (21:00)
[2022-05-06] MEDS ORDERED: GLIMEPIRIDE 2 MG TABLET PO SCH (08:00)
--- NOTE | 2022-05-11 18:26 | OP ---
Date of Procedure: 05/04/2022 Surgeon: Dane Frias MD Gas Compressor Turbine Operator: Dione Jordan. Preoperative Diagnoses: Breast cancer, history of stroke, blood thinners, diabetes. Postoperative Diagnoses: Breast cancer, history of stroke, blood thinners, diabetes. Procedures: 1.Right modified radical mastectomy. 2.Simple mastectomy. Estimated Blood Loss: Less than 100 cc. Specimen: Right breast with axillary dissection of left breast. Anesthesia: General plus local. Drains: MARYLU in x5, 3 on the right side and 2 on the left side due to size of the specimen. Indication: This is the case of a female, who comes to us with breast cancer. She was fully explain ed the options she might have. From the get-go, she wants to do bilateral breasts removal. Based on the findings and a possible lymph node on the axilla already present, not evidence of cancer, but we cannot rule out neither, I discussed the case with the Oncology Department. With the findings that we have and the patient's health, it was easy to decide if the patient wants a right modified radical mastectomy and left simple mastectomy. The benefits, alternatives, and risks of that surgery fully explained include, not limited to infection, bleeding, damage to adjacent structures, anesthesia comp lication, stroke, ND, and even . She also understands this may not relieve any symptoms. She m ight need more than one surgical intervention. She understands the importance of following up with [facility] medical doctors. We had initial stroke in the past. She has blood thinner and day of the surgery she mentioned that she forgot to stop the blood thinners and in advance I explained to her. Due to the history of a stroke and since she stopped it about a day ago, I still believe to proceed with the surgery, we might have to keep her overnight and several drains in that area, but I believe with a h istory of stroke and the imminent danger of breast cancer, at this moment I believe we are going to d o the surgery with those conditions. She understood the risks of hematoma, some bruises and things d iscussed to her. She understands that next day after this, she has to start taking her blood thinner s, cannot forget like she did in the past, is very important. She also should follow up with Jasiel Chi, who is her primary care. We discussed this before the surgery, me and Sonia about aydin p an eye on her for hematoma since she has to resume her blood thinners. She understood, the patient understood, family understood. They want to proceed with surgery and I believe it should be safe at this moment. Procedure In Detail: So, the patient was brought to the operating room, placed in supine position. Anesthesia was done without complication. We prepped and draped the chest with bilateral breasts in the usual sterile fashion. We have 2 sets of instruments, 2 sets of gowns, and 2 setups to deal with each breast individually. We do not want to cross contaminate or diminish the chance of that, so we proceeded to do the right side first and covering the left side and then the opposite once again bet ween cases we change instruments and our gowns and all equipments to prevent cross contamination. So , we started with the right side, a skin wedge made to include the nipple and areola complex. An inc ision was made to elevate the flaps in the avascular plane between the subcutaneous tissue and the br east tissue, superiorly up to the clavicle, sternum medially, anterior rectus sheath inferiorly, and anterior border of the latissimus dorsi laterally. The breast tissue was removed with the pectoralis fascia from medial to lateral. The clavipectoral fascia was then incised near the pectoralis major and minor. Dissection progressed under the pectoralis major and under the pectoralis minor. They we re retracted laterally. The neurovascular bundle near the pectorals muscle was identified and protec basil. Level 1-2 ramos tissues were removed. Axillary vein and artery were protected at all times. T he first round of axillary vein have to be ligated with the specimen. This was done using silk. The thoracodorsal nerve and long thoracic nerve were identified and preserved at all times. After we re moved the tissue and axillary dissection, we proceeded to irrigate the area. Due to the size of this breast, we have to leave 2 drains in the right side. They were secured to the skin with 3-0 nylon w ith 3 different incisions. The patient tolerated the procedure well. Then, we proceeded to close th e subcutaneous tissue with 3-0 chromic and the skin with mauro. Now before making sure we have com plete hemostasis in that area, we have to remember she has some blood thinners and that is what we mary messer. We used mauro at the end. Once again, we discussed that in advance with her to once again shor ten the time of closure. Once we have that area there, once again my team had changed gloves and david ns, changed instrument and used set of instruments and going to the left side. Sponge count, instrum ent counts correct in the previous site. In the left side, we proceeded then to once again make an i ncision to enclose the nipple and areola complex. The flaps were raised in the avascular plane, supe riorly to the clavicle, medial to the sternum, inferiorly to anterior rectus sheath, and anterior bor shannon of the latissimus dorsi. The breast and the underlying pectoralis fascia were then removed from medial to lateral. Specimen sent to the pathologist after marked. Once again, complete hemostasis w as obtained and due to the size of that breast, we have to leave 2 MARYLU drains exiting once again, secu red in place with 3-0 nylon. After that, then we obtained instrument and sponge count correct. Then , we proceeded to cover the area with sterile dressings. The patient tolerated the procedure well. Due to the extension and the size of this breast surgery, I believe the patient should stay overnight . We are going to be looking for signs of stroke and also make sure that we have no excessive bleedi ng. At this moment, it is completely dry and MARYLU drains are not giving us any excessive fluid. After that, the patient will be discharged tomorrow if she improved or the day after, depends on the clini richard symptoms, once again advised the importance of resuming her anticoagulation and following up with her primary doctor this week. JOHN/JEANNETTE Voice ID: [id number] Report ID: [id number]
== END 2022-05-05 11:20 | disposition home or self-care (01) ==
LOC: OR 08:38 → 2ND 15:19
PROVIDERS: ADMIT Surgery; ATTEND Surgery
PROC: 0HTU0ZZ Resection of Left Breast, Open Approach (ICD-10-PCS; 2022-05-04)
PROC: 0HTT0ZZ Resection of Right Breast, Open Approach (ICD-10-PCS; principal; 2022-05-04 11:45)
DX: C50.911 Malignant neoplasm of unspecified site of right female breast (principal); C77.3 Secondary and unspecified malignant neoplasm of axilla and upper limb lymph nodes; Z17.0 Estrogen receptor positive status [ER+]; E11.9 Type 2 diabetes mellitus without complications; I10 Essential (primary) hypertension; F41.9 Anxiety disorder, unspecified; E78.00 Pure hypercholesterolemia, unspecified; M19.90 Unspecified osteoarthritis, unspecified site; F17.200 Nicotine dependence, unspecified, uncomplicated; E66.9 Obesity, unspecified; Z68.41 Body mass index [BMI] 40.0-44.9, adult; Z86.73 Personal history of transient ischemic attack (TIA), and cerebral infarction without residual deficits; Z79.01 Long term (current) use of anticoagulants; Z79.02 Long term (current) use of antithrombotics/antiplatelets; Z79.84 Long term (current) use of oral hypoglycemic drugs; Z79.899 Other long term (current) drug therapy; Z91.018 Allergy to other foods; Z20.822 Contact with and (suspected) exposure to COVID-19
CPT/HCPCS: 93005; 85025 ×2; 80048 ×2; 36415 ×2; 82947 ×4; 88307; 88309; 71046; 97161; 94010; 87811; 19307; 19303; J2704; J1815 ×2; J2250; J3010 ×2; J1100; J1170 ×4; J7030 ×3; J0694 ×3; J2405 ×2; J0690; G0379; G0378 ×2

== ENCOUNTER 2022-05-09 15:11 | Inpatient (IN) | payer OTHER ==
--- NOTE | 2022-05-09 16:07 | RAD REPORT ---
EXAM DESCRIPTION: [place] Single View05/09/2022 3:54 pm CLINICAL HISTORY: CVA COMPARISON: May 03, 2022 FINDINGS: The lungs appear clear of acute infiltrate. The heart is normal size Postsurgical changes involve the chest with bilateral drains
[2022-05-09 16:08] LABS: Absolute Lymphocytes (CBC) 7.4 K/uL (0.7-4.9); Lymphocytes % 37.6 % (15.3-44.8); MCV 88.9 fL (80-100); MPV 9.5 fL (7.6-11.3); RBC Red Blood Cell Count 4.27 M/uL (3.86-4.86)
[2022-05-09 16:18] LABS: Potassium 3.8 mmol/L (3.5-5.1)
--- NOTE | 2022-05-09 16:24 | RAD REPORT ---
EXAM DESCRIPTION: CT - Ct Stroke Brain Wo Cont - 05/09/2022 4:13 pm CLINICAL HISTORY: Left-sided weakness COMPARISON: 2020 TECHNIQUE: Computed axial tomography of the head was obtained. All CT scans are performed using dose optimization technique as appropriate and may include automated exposure control or mA/KV adjustment according to patient size. FINDINGS: An intracranial bleed is not seen . The ventricles are normal in caliber. No extra-axial fluid collection is noted. 4.8 centimeter low-density area right parietal lobe Fluid within the sinuses/ mastoids is not seen. IMPRESSION: 4.8 centimeter low-density area right parietal lobe probably an acute infarction. Roverto of the emergency room was notified at 4:18 p.m. on May 09, 2022
--- NOTE | 2022-05-09 16:35 | RAD REPORT ---
EXAM DESCRIPTION: [place] Angio05/09/2022 4:17 pm CLINICAL HISTORY: Left-sided weakness COMPARISON: 2020 TECHNIQUE: 50 cc Isovue 370 was administered intravenously. 3D MIP reconstruction performed All CT scans are performed using dose optimization technique as appropriate and may include automated exposure control or mA/KV adjustment according to patient size. FINDINGS: Mild calcified plaque is present within common carotid, external carotid and carotid bulbs bilaterally. Mild calcified plaque within the distal internal carotid arteries bilaterally A prominent stenosis is present within the right internal carotid artery at the level of C2. The left vertebral artery is dominant. No significant abnormality of vertebral artery is noted. No dissection IMPRESSION: Narrowing of the right internal carotid artery at the C2 level estimated to be 50% steno sis NASCET criteria used. Mild 0-49% stenosis Moderate 50-69% stenosis Severe 70-99% stenosis
--- NOTE | 2022-05-09 16:39 | RAD REPORT ---
EXAM DESCRIPTION: CTHead angio05/09/2022 4:17 pm CLINICAL HISTORY: Left-sided weakness COMPARISON: None TECHNIQUE: CT angiogram of the head was obtained. 3D MIPS reconstruction performed. All CT scans are performed using dose optimization technique as appropriate and may include automated exposure control or mA/KV adjustment according to patient size. FINDINGS: The basilar, internal carotid, anterior cerebral, middle cerebral and posterior cerebral a rteries are normal caliber. An aneurysm is not seen. A significant stenosis is not noted. IMPRESSION: No acute abnormality is displayed
[2022-05-09 16:40] LABS: Protime INR 1.09
--- NOTE | 2022-05-09 16:45 | ER ---
Nurse's Notes [facility] Name: Maritza Jackson Age: 67 yrs Sex: Female : 1955 Arrival Date: 05/09/2022 Time: 15:17 Bed 2 Private MD: Diagnosis: Ischemic CVA;Left upper extremity weakness;Left lower extremity weakness Presentation: 05/09 15:27 Chief complaint: EMS states: LEFT SIDED NUMBNESS SINCE YESTERDAY. Coronavirus screen: bm7 At this time, the client does not indicate any symptoms associated with coronavirus-19. Ebola Screen: No symptoms or risks identified at this time. Initial Sepsis Screen: Does the patient meet any 2 criteria? No. Patient's initial sepsis screen is negative. Does the patient have a suspected source of infection? No. Patient's initial sepsis screen is negative. Risk Assessment: Do you want to hurt yourself or someone else? Patient reports no desire to harm self or others. Onset of symptoms was May 08, 2022. 15:27 Method Of Arrival: EMS: [facility] 7 15:27 Acuity: MAYA 3 bm7 Triage Assessment: 15:29 General: Appears in no apparent distress. comfortable, obese, Behavior is calm, bm7 cooperative, appropriate for age. Pain: Denies pain. EENT: No deficits noted. 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 Cardiovascular: No deficits noted. Respiratory: No deficits noted. GI: No signs and/or symptoms were reported involving the gastrointestinal system. : No signs and/or symptoms were reported regarding the genitourinary system. Derm: No deficits noted. Musculoskeletal: No deficits noted. Historical: - Allergies: 15:29 Pineapple; bm7 - Home Meds: 15:29 Glimepiride Oral [Active]; losartan Oral [Active]; bm7 - PMHx: 15:29 Hypertensive disorder; Diabetes mellitus; Hypercholesterolemia; bm7 - Immunization history:: Adult Immunizations up to date. - Social history:: Smoking status: Patient denies any tobacco usage or history of. Screenin:32 Abuse screen: Denies threats or abuse. Denies injuries from another. Nutritional bm7 screening: No deficits noted. Tuberculosis screening: No symptoms or risk factors identified. Fall Risk None identified. Assessment: 15:32 General: SEE TRIAGE NOTE. bm7 17:30 Reassessment: ADMIT INITIATED. bp 19:48 General: attempted to call report . as6 Vital Signs: 15:27 BP 150 / 72; Pulse 79; Resp 17; Temp 98; Pulse Ox 94% ; bm7 16:30 BP 149 / 77; Pulse 75; Resp 16; Pulse Ox 95% ; bp 17:30 BP 144 / 73; Pulse 72; Resp 16; Pulse Ox 94% ; bp 19:40 BP 137 / 70; Pulse 70; Resp 18 S; Pulse Ox 95% on R/A; as6 NIH Stroke Scale Scores: 15:38 NIHSS Score: 5 ms3 ED Course: 15:17 Patient arrived in ED. eb 15:23 Rogers Duenas DO is Attending Physician. ms3 15:27 Serena Howe, RN is Primary Nurse. bm7 15:29 Triage completed. bm7 15:29 Arm band placed on. bm7 15:32 Patient has correct armband on for positive identification. Bed in low position. Call bm7 light in reach. Side rails up X2. 15:56 Stroke CXR 1 View In Process Unspecified. EDMS 16:01 Basic Metabolic Panel Sent. kc6 16:01 CBC with Diff Sent. kc6 16:01 Protime (+inr) Sent. kc6 16:01 Ptt, Activated Sent. kc6 16:14 CT Stroke Brain w/o Contrast In Process Unspecified. EDMS 16:19 CT Head Angio In Process Unspecified. EDMS 16:19 CT Neck Angio In Process Unspecified. EDMS 16:22 Inserted saline lock: 20 gauge in left antecubital area, using aseptic technique. Blood zm collected. 16:43 Kevin Chinchilla MD is Hospitalizing Provider. ms3 19:07 Primary Nurse role handed off by Serena Howe, RN tw5 19:07 Leyda Deng is Primary Nurse. tw5 20:17 No provider procedures requiring assistance completed. Inserted Patient admitted, IV tw5 remains in place. Administered Medications: 17:00 Drug: Aspirin 325 mg Route: PO; bp 17:52 Follow up: Response: No adverse reaction bp 17:00 Drug: Atorvastatin 80 mg Route: PO; bp 17:52 Follow up: Response: No adverse reaction bp 17:00 Drug: PlaVIX (clopidogrel) 75 mg Route: PO; bp 17:52 Follow up: Response: No adverse reaction bp 17:00 Drug: morphine 4 mg Route: IVP; Infused Over: 4 mins; Site: left antecubital; bp 17:52 Follow up: Response: No adverse reaction bp Medication: 15:32 VIS not applicable for this client. bm7 Outcome: 16:45 Decision to Hospitalize by Provider. ms3 20:05 Admitted to Med/surg Report called to attempted to call report was told nurse is aa9 unavailable at this time 20:18 Condition: stable tw5 20:19 Patient left the ED. tw5 NIH Stroke Scale - NIH Stroke Score Date: 05/09/2022 Time: 15:38 Total Score = 5 1a. Level of Consciousness (LOC) - 0(Alert) 1b. Level of Consciousness (LOC) (Month \T\ Age) - 0(Both) 1c. LOC Commands (Open \T\ Closes Eyes/Conference Translator) - 0(Both) 2. Best Gaze (Lateral Gaze Paresis) - 0(Normal) 3. Visual Field Loss - 0(No visual loss) 4. Facial Palsy - 0(Normal) 5a. Left Arm: Motor (10-second hold) - 4(No movement) 5b. Right Arm: Motor (10-second hold) - 0(No drift) 6a. Left Leg: Motor (5-second hold - always test supine) - 1(Drift) 6b. Right Leg: Motor (5-second hold - always test supine) - 0(No drift) 7. Limb Ataxia (finger/nose \T\ heel/armstrong - test with eyes open) - 0(Absent) 8. Sensory Loss (pinprick arms/legs/face) - 0(Normal) 9. Best Language: Aphasia (description/naming/reading) - 0(No aphasia) 10. Dysarthria (speech clarity - read or repeat words) - 0(Normal) 11. Extinction and Inattention (visual/tactile/auditory/spatial/personal) - 0(No abnormality) Initials: ms3 Signatures: Dispatcher [employer] EDAlexander Jeffery, RN RN bp Lynda Rasmussen Marcus, DO DO ms3 Serena Howe, RN RN bm7 Leyda Deng tw5 Johnnie Rouse RN RN as6 Laura Frias Aylin, RN RN aa9 Carlie Johansen kc6
--- NOTE | 2022-05-09 16:46 | EDPHYS ---
Physician Documentation [facility] Name: Ranjete Jackson Age: 67 yrs Sex: Female : 1955 Arrival Date: 05/09/2022 Time: 15:17 Bed 2 Private MD: ED Physician Rogers Duenas HPI: 05/09 15:38 This 67 yrs old Female presents to ER via EMS with complaints of Numbness. ms3 15:38 This 67 yrs old Female presents to ER via EMS with complaints of Left upper ms3 and lower extremity weakness. 15:38 The patient's problem is reported as weakness, in the left upper extremity, in the left ms3 lower extremity. Onset: The symptoms/episode began/occurred acutely, 12 hour(s) ago. Duration: The episode is continuous. Context: symptoms became apparent Getting up at 0330 to go to the restroom. The symptoms are alleviated by nothing. The symptoms are aggravated by nothing. Associated signs and symptoms: The patient has no apparent associated signs or symptoms. Severity of symptoms: At their worst the symptoms were severe in the emergency department the symptoms are unchanged. Patient's baseline:. Historical: - Allergies: 15:29 Pineapple; bm7 - Home Meds: 15:29 Glimepiride Oral [Active]; losartan Oral [Active]; bm7 - PMHx: 15:29 Hypertensive disorder; Diabetes mellitus; Hypercholesterolemia; bm7 - Immunization history:: Adult Immunizations up to date. - Social history:: Smoking status: Patient denies any tobacco usage or history of. ROS: 15:38 Constitutional: Negative for fever, and chills. Neck: Negative for injury, pain, and ms3 swelling, Cardiovascular: Negative for chest pain, and palpitations. Respiratory: Negative for shortness of breath, cough, wheezing, and pleuritic chest pain, Abdomen/GI: Negative for abdominal pain, nausea, vomiting, diarrhea, and constipation, MS/Extremity: Negative for injury and deformity, Skin: Negative for injury, rash, and discoloration. 15:38 Neuro: Positive for numbness, weakness. 15:38 All other systems are negative. Exam: 15:38 Constitutional: This is a well developed, well nourished patient who is awake, alert, ms3 and in no acute distress. Head/Face: Normocephalic, atraumatic. Neck: Trachea midline, no cervical lymphadenopathy. Supple, full range of motion without nuchal rigidity, or vertebral point tenderness. No Meningismus. Chest/axilla: Normal chest wall appearance and motion. Nontender with no deformity. Cardiovascular: Regular rate and rhythm with a normal S1 and S2. No gallops, murmurs, or rubs. Normal PMI, no JVD. No pulse deficits. Respiratory: Lungs have equal breath sounds bilaterally, clear to auscultation and percussion. No rales, rhonchi or wheezes noted. No increased work of breathing, no retractions or nasal flaring. Abdomen/GI: Soft, non-tender, with normal bowel sounds. No distension or tympany. No guarding or rebound. No evidence of tenderness throughout. Skin: Warm, dry with normal turgor. Normal color with no rashes, no lesions, and no evidence of cellulitis. 15:38 Musculoskeletal/extremity: Extremities: noted in the LUE LLE: Weakness. 16:47 ECG was reviewed by the Attending Physician. ms3 17:00 Radiologist reports: CT Stroke Brain w/o Contrast \\E\\[id number]\\E\\ [facility] ms3 [place] [address] RADIOLOGY SERVICES REPORT Name: RANJEET JACKSON Acct Number: [id number] :1955 Age:67 Sex:F Ord Phys: Miller Duenasus Unit Number: [id number] [place] [facility] Dr: Brennan Status: REG ER ER Exam Date: 05/09/22 EXAM DESCRIPTION: CT - Ct Stroke Brain Wo Cont - 05/09/2022 4:13 pm CLINICAL HISTORY: Left-sided weakness COMPARISON: 2020 TECHNIQUE: Computed axial tomography of the head was obtained. All CT scans are performed using dose optimization technique as appropriate and may include automated exposure control or mA/KV adjustment according to patient size. FINDINGS: An intracranial bleed is not seen . The ventricles are normal in caliber. No extra-axial fluid collection is noted. 4.8 centimeter low-density area right parietal lobe Fluid within the sinuses/ mastoids is not seen. IMPRESSION: 4.8 centimeter low-density area right parietal lobe probably an acute infarction. Roverto of the emergency room was notified at 4:18 p.m. on May 09, 2022 Signed By: Junior Mercado MD Signed AT: 05/09/22 1624 \\E\\[id number]\\[id number]\\ Vital Signs: 15:27 BP 150 / 72; Pulse 79; Resp 17; Temp 98; Pulse Ox 94% ; bm7 16:30 BP 149 / 77; Pulse 75; Resp 16; Pulse Ox 95% ; bp 17:30 BP 144 / 73; Pulse 72; Resp 16; Pulse Ox 94% ; bp 19:40 BP 137 / 70; Pulse 70; Resp 18 S; Pulse Ox 95% on R/A; as6 NIH Stroke Scale Scores: 15:38 NIHSS Score: 5 ms3 MDM: 15:36 Patient medically screened. ms3 16:57 Differential diagnosis: CVA, TIA, metabolic disorder. ms3 17:00 Data reviewed: vital signs, nurses notes, lab test result(s), radiologic studies, CT ms3 scan, plain films, and as a result, I will admit patient. Physician consultation: Kurt Deng MD and will see patient. ED course: Discussed case with Dr Chinchilla and he accepts patient. Dr Deng consulted and if negative intracranial CTA or hyperdense sign on CT Head medical management with asa, statin, plavix. 05/09 15:37 Order name: Basic Metabolic Panel; Complete Time: 16:26 ms3 05/09 15:37 Order name: CBC with Diff; Complete Time: 16:26 ms3 05/09 15:37 Order name: Protime (+inr); Complete Time: 16:41 ms3 05/09 15:37 Order name: Ptt, Activated; Complete Time: 16:41 ms3 05/09 16:20 Order name: COVID-19 SARS RT PCR (Document "Date of Onset" if Symptomatic); Complete ss Time: 18:54 05/09 16:30 Order name: CREATININE WHOLE BLOOD; Complete Time: 16:31 EDMS 05/09 15:37 Order name: CT Stroke Brain w/o Contrast; Complete Time: 16:26 ms3 05/09 15:37 Order name: Stroke CXR 1 View; Complete Time: 16:26 ms3 05/09 15:37 Order name: CT Head Angio; Complete Time: 16:41 ms3 05/09 15:38 Order name: CT Neck Angio; Complete Time: 16:59 ms3 05/09 15:37 Order name: EKG; Complete Time: 15:38 ms3 05/09 15:37 Order name: Accucheck; Complete Time: 16:25 ms3 05/09 15:37 Order name: Cardiac monitoring; Complete Time: 16:25 ms3 05/09 15:37 Order name: EKG - Nurse/Tech; Complete Time: 17:53 ms3 05/09 15:37 Order name: IV Saline Lock; Complete Time: 16:25 ms3 05/09 15:37 Order name: Labs collected and sent; Complete Time: 16:25 ms3 05/09 15:37 Order name: NPO; Complete Time: 16:25 ms3 05/09 15:37 Order name: O2 Per Protocol; Complete Time: 16:25 ms3 05/09 15:37 Order name: O2 Sat Monitoring; Complete Time: 16:25 ms3 05/09 15:37 Order name: Stroke Swallow Screen; Complete Time: 16:25 ms3 EC:47 Rate is 75 beats/min. Rhythm is regular. QRS [place] is Normal. Clinical impression: ms3 Normal ECG. Interpreted by me. Reviewed by me. Administered Medications: 17:00 Drug: Aspirin 325 mg Route: PO; bp 17:52 Follow up: Response: No adverse reaction bp 17:00 Drug: Atorvastatin 80 mg Route: PO; bp 17:52 Follow up: Response: No adverse reaction bp 17:00 Drug: PlaVIX (clopidogrel) 75 mg Route: PO; bp 17:52 Follow up: Response: No adverse reaction bp 17:00 Drug: morphine 4 mg Route: IVP; Infused Over: 4 mins; Site: left antecubital; bp 17:52 Follow up: Response: No adverse reaction bp Disposition Summary: 05/09/22 16:45 Hospitalization Ordered Hospitalization Status: Inpatient Admission ms3 Provider: Kevin Chinchilla ms3 Location: Telemetry/MedSurg (Inpatient) ms3 Condition: Stable ms3 Problem: new ms3 Symptoms: are unchanged ms3 Bed/Room Type: Standard ms3 Room Assignment: 216(05/09/22 19:30) mw Diagnosis - Ischemic CVA ms3 - Left upper extremity weakness ms3 - Left lower extremity weakness ms3 Forms: - Medication Reconciliation Form ms3 - SBAR form ms3 Critical care time excluding procedures: 17:00 Critical care time: Bedside Care: 20 minutes, Consultation: 15 minutes, Family ms3 Intervention: 5 minutes. Total time: 40 minutes NIH Stroke Scale - NIH Stroke Score Date: 05/09/2022 Time: 15:38 Total Score = 5 1a. Level of Consciousness (LOC) - 0(Alert) 1b. Level of Consciousness (LOC) (Month \\T\\ Age) - 0(Both) 1c. LOC Commands (Open \\T\\ Closes Eyes/Casting Wheel Operator Helper) - 0(Both) 2. Best Gaze (Lateral Gaze Paresis) - 0(Normal) 3. Visual Field Loss - 0(No visual loss) 4. Facial Palsy - 0(Normal) 5a. Left Arm: Motor (10-second hold) - 4(No movement) 5b. Right Arm: Motor (10-second hold) - 0(No drift) 6a. Left Leg: Motor (5-second hold - always test supine) - 1(Drift) 6b. Right Leg: Motor (5-second hold - always test supine) - 0(No drift) 7. Limb Ataxia (finger/nose \\T\\ heel/armstrong - test with eyes open) - 0(Absent) 8. Sensory Loss (pinprick arms/legs/face) - 0(Normal) 9. Best Language: Aphasia (description/naming/reading) - 0(No aphasia) 10. Dysarthria (speech clarity - read or repeat words) - 0(Normal) 11. Extinction and Inattention (visual/tactile/auditory/spatial/personal) - 0(No abnormality) Initials: ms3 Signatures: Dispatcher [employer] EDAneta Tapia RN Alexander Lloyd RN RN Rogers Goddard DO DO ms3 Serena Howe, RN RN bm7 Corrections: (The following items were deleted from the chart) 19:30 16:45 ms3
[2022-05-09] MEDS ORDERED: ASPIRIN 325 MG TAB ONE (17:20)
[2022-05-09] MEDS ORDERED: MORPHINE 4 MG/ML SYR ONE (17:20)
[2022-05-09] MEDS ORDERED: ATORVASTATIN 20 MG TAB ONE (17:21)
[2022-05-09] MEDS ORDERED: CLOPIDOGREL 75 MG TABLET ONE (17:21)
--- NOTE | 2022-05-09 19:38 | P.HP ---
Certification for Inpatient Patient admitted to: Inpatient With expected LOS: >2 Midnights Patient will require the following post-hospital care: None Practitioner: I am a practitioner with admitting privileges, knowledge of patient current condition, hospital course, and medical plan of care. Services: Services provided to patient in accordance with Admission requirements found in Title 42 Section 412.3 of the Code of Federal Regulations <Isidro Rendon - Last Filed: 05/09/22 19:31> Patient History Date of Service: 05/09/22 Reason for admission: CVA History of Present Illness: 67-year-old female with history of previous CVA, hypertension, diabetes mellitus type [id number], hyperlipidemia presents the emergency department for left-sided weakness. She reports going to bed around 1030 last night feeling normal awoke at 0330 this morning to use the restroom and nearly fell down as she is having weakness of her left upper and lower extremity. She arrived to the emergency department at 1517 today with complaints of left-sided numbness. She is evaluated in the emergency department, her CT scan of the head without contrast revealed 4.8 cm low-density area right parietal lobe probably an acute infarction, patient out of the window for TNKase. She was deviously on Plavix after a CVA last June, she was supposed to be on aspirin, Plavix, atorvastatin and folic acid in addition to other home medications. She has not been taking aspirin at home, she also had bilateral mastectomy for breast cancer performed on 05/04/[address] Frias, she had mistakenly not been taking her Plavix ever since her surgery. Case discussed with general surgery patient cleared to continue taking her aspirin Plavix, she does have 3 MARYLU drains to the right chest and 2 to the left chest with serosanguineous output. White blood cell count was elevated during her work-up in the emergency department but has decreased from last week when she was here, she is currently taking Cipro 500 p.o. twice daily which is scheduled to be completed on the . She does have significant weakness of her left upper extremity as well as paresthesias NIH score in the emergency department was 5. We will need to admit for further evaluation and management of acute CVA. - Past Medical/Surgical History Diabetic: Yes -: HTN -: NIDDM -: TIA -: tobacco abuse -: CVA -: Bilateral mastectomy Psychosocial/ Personal History: Patient lives at home with her daughters. - Family History Father History Unknown: Yes Notes: Patient was adopted - Social History Smoking Status: Current every day smoker Counseled patient to stop smoking for: less than 10 minutes Smoking therapy provided: Yes Alcohol use: No CD- Drugs: No Caffeine use: Yes Place of Residence: Home <Isidro Rendon - Last Filed: 05/09/22 19:31> Date of Service: 05/10/22 <Kevin Chinchilla - Last Filed: 05/10/22 16:51> Allergies pineapple Allergy (Verified 05/03/22 09:00) Anaphylaxis Home Medications: Atorvastatin Calcium [Lipitor] 40 mg PO BEDTIME #30 tab 07/21/21 Clopidogrel Bisulfate [Plavix*] 75 mg PO DAILY #30 tablet 07/21/21 Glimepiride 1 mg PO DAILY #30 07/21/21 Metformin ER [Glucophage ER*] 500 mg PO BIDWM #60 tab.sa 07/21/21 LORazepam [Ativan*] 0.5 mg PO BID PRN 05/03/22 Losartan Potassium 100 mg PO DAILY 05/03/22 Review of Systems 10-point ROS is otherwise unremarkable Neurological: Weakness, Numbness, As per HPI <Isidro Rendon - Last Filed: 05/09/22 19:31> Physical Examination - Physical Exam General: Alert, In no apparent distress, Oriented x3 HEENT: Atraumatic, PERRLA, Mucous membr. moist/pink, EOMI, Sclerae nonicteric Neck: Supple, 2+ carotid pulse no bruit, No LAD, Without JVD or thyroid abnormality Respiratory: Clear to auscultation bilaterally, Normal air movement Cardiovascular: Regular rate/rhythm, Normal S1 S2 Capillary refill: <2 Seconds Gastrointestinal: Normal bowel sounds, No tenderness Musculoskeletal: No tenderness Integumentary: No rashes, No breakdown, No significant lesion, Other (3 MARYLU drains noted to right chest wall, 2 MARYLU drains to left chest wall with serosanguineous drainage) Neurological: Normal speech, Normal tone, Sensation intact, Normal affect, Abnormal strength (1/5 strength LUE, 4/5 LLE) - Studies Laboratory Data (last 24 hrs) 05/09/22 15:58: PT 12.0, INR 1.09, APTT 25.7 05/09/22 15:58: WBC 19.6 H D, Hgb 12.6, Hct 38.0, Plt Count 376 D 05/09/22 15:58: Sodium 139, Potassium 3.8, BUN 10, Creatinine 0.63, Glucose 132 H <Isidro Rendon - Last Filed: 05/09/22 19:31> Assessment and Plan - Plan Assessment: Acute ischemic CVA with left-sided deficits Diabetes mellitus type [id number] Hyperlipidemia S/P ELIANA mastectomy 05/04/22 with Multiple MARYLU drains in place Tobacco abuse Plan: Acute ischemic CVA with left-sided deficits: Patient was not taking aspirin at home since her last discharge for CVA, she had been holding her Plavix mistakenly after her mastectomy on 05/04/2022. His medications have been resumed, MRI stroke protocol, echocardiogram ordered. Neurology consult in place. We will have patient evaluated by physical therapy, speech therapy, Occupational Therapy. Patient with significant weakness of the left upper extremity, she may require rehab at discharge. Appreciate further input from neurology. Diabetes mellitus type [id number]: ACH S Accu-Chek, sliding scale insulin. A1c in the morning. Hyperlipidemia: Continue atorvastatin, will obtain lipid panel in the morning. S/P ELIANA mastectomy 05/04/22 with Multiple MARYLU drains in place: WBC is 19.6, this has decreased from 26 when she had a mastectomy on I have continue patient's home medication ciprofloxacin 5 mg p.o. twice daily which was prescribed by her general surgeon to be completed on the . Drains with serosanguineous drainage still present. General surgery consulted, will also evaluate patient. Tobacco abuse: Counseled on need for tobacco cessation given multiple CVAs, patient verbalizes understanding states she does intend to quit, offered NicoDerm patient declined at this time will provide if requested. DVT PPX: Lovenox Code status: Full Discharge Plan: Home Plan to discharge in: 72 Hours - Advance Directives Does patient have a Living Will: No Does patient have a Durable POA for Healthcare: No - Code Status/Comfort Care Code Status Assessed: Yes (Full code) Critical Care: No Time Spent Managing Pts Care (In Minutes): 70 <Isidro Rendon - Last Filed: 05/09/22 19:31> Physician Review: Patient Assessed, Agree with Above Assessment and Plan Physician Review Additional Text: I have personally seen and evaluated Ms. Maritza Jackson. I reviewed the notes and assessments performed by Isidro Rendon NP. I independently performed my own history and physical examination. I agree with the assessment and plan as outlined in his note. I concur with his documentation of Ms. Jackson. <Kevin Chinchilla - Last Filed: 05/10/22 16:51>
[2022-05-09] MEDS ORDERED: ONDANSETRON 4 MG/2 ML VIAL IV PRN (20:48)
[2022-05-09] MEDS: INSULIN -REGULAR HUMAN 50 UNIT/0.5 ML ML SQ SCH (21:00)
[2022-05-09 22:14] VITALS: BMI 43.8
[2022-05-09] MEDS: ATORVASTATIN 40 MG TAB PO SCH (22:22)
[2022-05-10] MEDS: HYDROCODONE/APAP 5/325 MG TAB PO PRN ×3 (02:08→20:12)
[2022-05-10 05:54] LABS: Lymphocytes % 36.8 % (15.3-44.8); MCV 88.3 fL (80-100); MPV 9.3 fL (7.6-11.3); RBC Red Blood Cell Count 3.85 M/uL (3.86-4.86)
[2022-05-10 05:58] LABS: Albumin 2.5 g/dL (3.4-5.0); Bilirubin Total 0.5 mg/dL (0.2-1.0); Magnesium 1.9 mg/dL (1.8-2.4); Thyroid Stimulating Hormone 2.81 uIU/mL (0.360-3.740)
[2022-05-10] MEDS: INSULIN -REGULAR HUMAN 50 UNIT/0.5 ML ML SQ SCH ×4 (07:30→20:13)
--- NOTE | 2022-05-10 08:15 | EKG ---
Test Date: 2022-05-09 Test Time: 16:47:32 Head Golf Coach: BP MEASUREMENT RESULTS: Intervals: Rate: 75 CT: 150 QRSD: 98 QT: 380 QTc: 424 [place]: P: 26 CT: 150 QRS: 53 T: 34 INTERPRETIVE STATEMENTS: Normal sinus rhythm Normal ECG Compared to ECG 05/03/2022 09:24:48 Myocardial infarct finding no longer present Electronically Signed On 05-10-22 08:12:36 CDT by Preet Tobin
[2022-05-10] MEDS: ENOXAPARIN 40 MG/0.4 ML SQ SCH (08:40)
[2022-05-10] MEDS: ASPIRIN EC 81 MG TAB PO SCH (08:41)
[2022-05-10] MEDS: CIPROFLOXACIN HCL 500 MG TAB PO SCH ×2 (08:41→20:13)
[2022-05-10] MEDS: FOLIC ACID 1 MG TABLET PO SCH (08:41)
[2022-05-10] MEDS: CLOPIDOGREL 75 MG TABLET PO SCH (08:41)
[2022-05-10] MEDS ORDERED: ACETAMINOPHEN 325 MG TABLET PO PRN (11:52)
--- NOTE | 2022-05-10 12:41 | RAD REPORT ---
EXAM DESCRIPTION: MRI - MRA Head Wo Cont - 05/10/2022 12:34 pm CLINICAL HISTORY: CVA COMPARISON: CTA head May 09, 2022 TECHNIQUE: Magnetic resonance angiogram was performed. 3D MIPS reconstruction performed FINDINGS: The anterior cerebral, middle cerebral, distal internal carotid and basilar arteries do no t demonstrate a significant stenosis. A1 segment left anterior cerebral artery somewhat hypoplastic Evaluation of portions of the posterior cerebral arteries somewhat limited secondary to artifact. No significant abnormality is suspected An aneurysm is not displayed. IMPRESSION: No acute abnormality is displayed
--- NOTE | 2022-05-10 13:54 | RAD REPORT ---
EXAM DESCRIPTION: MRI - Brain W/Wo Cont - 05/10/2022 12:52 pm CLINICAL HISTORY: cva COMPARISON: MRA Head Wo Cont dated 05/10/2022; Brain W/Wo Cont dated 07/08/2021; MRA Head Wo Cont date d 07/08/2021; MRI BRAIN WITHOUT CONTRAST dated 02/28/2013 TECHNIQUE: Sagittal T1-weighted images were obtained along with PD/heavily T2-weighted and T2-FLAIR images. Axial DWI and ADC mapping sequences were also obtained along with coronal heavily T2-weighted images were obtained. Post contrast enhanced images were obtained. FINDINGS: Gyral edema in the right posterior frontal and parietal lobes. There is a moderate associa basil cortical infarct as evidenced by diffusion restriction. Other smaller essentially punctate cortic al infarcts are present in the right occipital lobe and more inferiorly in the right parietal lobe. W ispy enhancement at the infarct site is noted. This is typically seen in subacute infarcts. Mild portfolio manager elías small vessel ischemic changes. Flow voids are grossly unremarkable. No acute intracranial hemorrh age. No mass effect or midline shift. No mastoid effusion.Right sphenoid sinus mucous retention cyst. Mild ethmoid air cell thickening. IMPRESSION: Moderate sized right posterior frontal and parietal cortical infarcts. Most of the infar ct is favored acute however some wispy enhancement is noted that could indicate an acute on subacute infarct. Follow up contrast enhanced MRI in 2-3 months is recommended to ensure resolution of enhance ment.
--- NOTE | 2022-05-10 14:08 | RAD REPORT ---
EXAM DESCRIPTION: MRI - MRA Neck W/Wo Cont - 05/10/2022 12:48 pm CLINICAL HISTORY: cva COMPARISON: MRA Neck W/Wo Cont dated 07/08/2021; Neck Angio dated 05/09/2022 FINDINGS: Contrast enhance 2D [id number] MR angiography of the neck vessels was performed. Apparent moderate stenosis at the proximal right common carotid artery is likely secondary to artifac t as the vessel appears widely patent on the neck CTA from 05/09/2022. Moderate stenosis at the proxi mal left external carotid artery. A mild less than 50% stenosis is present at the left proximal ICA. The vertebral arteries are patent. IMPRESSION: 1. Mild (<50%) left proximal ICA stenosis. Moderate left ECA stenosis. The left common c arotid artery is widely patent. 2. Artifact at the right proximal common carotid artery simulates the presence of a stenosis. The ves corona appears widely patent on the neck CTA from 05/09/22. No hemodynamically significant stenosis of th e right CCA, ICA, or ECA. 3. Widely patent vertebral arteries.
--- NOTE | 2022-05-10 16:59 | P.PN ---
Subjective Date of Service: 05/10/22 Chief Complaint: CVA No acute events since admission. She is in good spirits this morning on rounds. She states that her only concern is that her left arm feels heavy. She endorses non-compliance with her aspirin and clopidogrel at home. Review of Systems General: Weakness (LUE, LLE) Eyes: Unremarkable ENT: Unremarkable Respiratory: Unremarkable Cardiovascular: Unremarkable Gastrointestinal: Unremarkable Genitourinary: Unremarkable Musculoskeletal: Unremarkable Integumentary: Unremarkable Neurological: Weakness (LUE, LLE) Physical Examination - Vital Signs Temperature: 97.5 F Blood Pressure: 151/76 Pulse: 83 Respirations: 20 Pulse Ox (%): 93 - Physical Exam General: Alert, In no apparent distress, Oriented x3 HEENT: Atraumatic, PERRLA, Mucous membr. moist/pink, EOMI, Sclerae nonicteric Neck: Supple, Without JVD or thyroid abnormality Respiratory: Clear to auscultation bilaterally, Normal air movement Cardiovascular: No edema, Regular rate/rhythm, Normal S1 S2, No gallops, No rubs, No murmurs Gastrointestinal: Normal bowel sounds, Soft and benign, Non-distended, No tenderness, No rebound, No guarding Musculoskeletal: No clubbing, Other (3 right MARYLU drains, 2 left MARYLU drains from bilateral mastectomy. Minimal serosangineous fluid present.) Integumentary: No rashes Neurological: Normal speech, Sensation intact, Cranial nerves 3-12 intact, Normal affect, Abnormal strength (2-3/5 strength in LUE, 4/5 strength in LLE) - Studies Medications List Reviewed: Yes Assessment And Plan - Plan NIH Stroke Scale 1a. Level of consciousness: 0 - Alert; keenly responsive 1b. LOC questions: 0 - Both questions right 1c. LOC commands: 0 - Performs both tasks 2. Best Gaze: 0 - Normal 3. Visual: 0 - No visual loss 4. Facial Palsy: 0 - Normal symmetry 5a. Motor left arm: 2 - Some effort against gravity 5b. Motor right arm 0 - No drift for 10 seconds 6a. Motor left le - Drifts, hits bed 6b. Motor right le - No drift for 5 seconds 7. Limb ataxia: 0 - No ataxia 8. Sensory: 0 - Normal; no sensory loss 9. Best Language: 0 - Normal; no aphasia 10. Dysarthria: 0 - Normal 11. Extinction and Inattention: 0 - No abnormality 12. Distal motor function: 0 - No abnormality Total Score: 4 # Acute Right Parietal Cerebrovascular Accident with residual Left-Sided Deficits # History of Cerebrovascular Accident in June 2021 # Moderate Right Internal Carotid Artery Stenosis # Mild Left Proximal Internal Carotid Artery Stenosis # Moderate Left External Carotid Artery Stenosis # Hyperlipidemia - Consulted Neurology - recommendations appreciated - Was outside of window for tPA - NIHSS = 4 - Evaluation thus far: - CT head = "4.8 centimeter low-density area right parietal lobe probably an acute infarction." - CT head angiogram = "no acute abnormality is displayed." - CT neck angiogram = "narrowing of the right internal carotid artery at the C2 level estimated to be 50% stenosis." - MRI brain = "moderate sized right posterior frontal and parietal cortical infarcts. Most of the infarct is favored acute however some wispy enhancement is noted that could indicate an acute on subacute infarct. Follow up contrast enhanced MRI in 2-3 months is recommended to ensure resolution of enhancement." - MRI brain angiogram = "no acute abnormality is displayed." - MRI neck angiogram = "1. Mild (<50%) left proximal ICA stenosis. Moderate left ECA stenosis. The left common carotid artery is widely patent. 2. Artifact at the right proximal common carotid artery simulates the presence of a stenosis. The vessel appears widely patent on the neck CTA from 05/09/22. No hemodynamically significant stenosis of the right CCA, ICA, or ECA. 3. Widely patent vertebral arteries." - q4hr neurochecks - Ordered TTE - PT/OT evaluation requested - Ordered risk profile: - Hgb A1c = 7.0 % - Lipid panel, TC 98, TG 87, LDL 45, HDL 36 - TSH = 2.81 - Continue aspirin, atorvastatin, clopidogrel - Counseled on the importance of medication compliance # Hyperglycemia in Type II Diabetes Mellitus - Hgb A1c = 7.0 % - Continue correction scale insulin # S/P Bilateral Mastectomy on with 5 drains (3 on right, 2 on left) (05/04/22) - General Surgery consulted - recommendations appreciated - Leukocytosis improving - Continue ciprofloxacin prescribed by General Surgeon (end date: 05/12/22) - Drains are clean with minimal serosanguineous drainage still present # Tobacco Use Disorder - Extensive tobacco cessation counseling provided # Thyroid Nodule (22 mm) - Follow-up with PCP for further evaluation Kevin Chinchilla MD Physician Review: Patient Assessed, Agree with Above Assessment and Plan
[2022-05-10] MEDS: ATORVASTATIN 40 MG TAB PO SCH (20:13)
--- NOTE | 2022-05-10 23:19 | CON ---
Consultation called because of new stroke. History Of Present Illness: Ms. Jackson is a 67-year-old right-handed patient with prior str justyn affecting the right brain and left body with residual weakness. She actually had rehabilitation in the inpatient unit and did fairly well after that. Also has comorbid conditions including hyperte nsion, diabetes mellitus, dyslipidemia. She was at home yesterday morning around 3:30 when she woke up, tried to use restroom, but her left leg became weak. She had gone to bed around 10:30 the night before and was without any additional weakness. She came [facility] not until the afte rnoon that is about 3:17 p.m. and had left-sided weakness and numbness, hand was significantly weak. Her head CT scan showed a 4.8 cm low-density area in the right parietal region, likely representing an acute infarct. Her NIH stroke scale was around 5. Given she was well out of the window for TNKs that was not given. Leading up to the stroke, she had bilateral mastectomy and stopped her antiplate let medications, which were aspirin and Plavix and also, she has been on the statin. Thus, surgery w as performed on the and she did not restart antiplatelet medications after. Her subsequent MRI of the brain, which was done earlier today, that confirmed the presence of moderate size right back padder ior frontal and parietal cortical infarcts. In addition, there was an area of apparent subacute rowley ge and the radiologist did recommend a followup MRI of the brain to rule out possibility of an enhanc ing mass. Her neck magnetic resonance angiogram showed less than 50% stenosis of left proximal ICA, moderate le ft external carotid artery stenosis. Otherwise, the left side is unremarkable. The right common car otid artery suggested some stenosis, however, on the neck study of the CT angiogram, there was no jeniffer nosis noted there. The vertebral arteries were widely opened. Within the brain, the cerebral magnet ic resonance angiogram showed no abnormalities. Her white blood cell count was elevated to 19.6 on a dmission, now 16.4 today. Normal differential. INR 1.09. Chemistries showed normal kidney function . Glucose range up to 179. Hemoglobin A1c was 7. LDL cholesterol 45, HDL 36. Thyroid-stimulating hormone normal. Liver function studies unremarkable. COVID test was negative. She is now working with Physical Therapy and will have a goal of hopefully going to the inpatient [facility] unit to have aggressive physical and occupational therapy to help her regain strength in the left upper and lower extremity, in addition to improve her gait, balance, coordination, and funct ional activities. Past Medical History: As noted, including tobacco abuse. Surgical History: Recent bilateral mastectomy. Family History: She is adopted with no known family history. Social History: She smokes half a pack of cigarettes daily despite being told to stop smoking on mul tiple occasions. Denies alcohol or IV drug use. Drinks caffeinated beverages. Allergies: PINEAPPLE, CAUSES ANAPHYLAXIS. Medications: At home, atorvastatin 40 mg at bedtime. She has been on Plavix 75 mg daily, which she was not taking; glimepiride 1 mg daily; metformin 500 mg twice daily; losartan 100 mg daily. Review of Systems: Aside from mentioned above, she denies any recent fevers or chills, myalgias, or arthralgias. She is recovering well from her bilateral mastectomy. Otherwise, no positives. Ten-point systems was revi ewed other than the left-sided weakness. Physical Examination: Vital Signs: Blood pressure 151/76, pulse 83, respiratory rate 18, temperature 97.5, oxygen saturati on 93% room air. Weight 239 pounds. Height 5 feet 2 inches. BMI 43. General: Ms. Jackson is resting in bed. She is in no significant distress. HEENT: She is normocephalic, atraumatic. Sclerae are anicteric. Oropharynx is moist and pink. Neck: Supple. Chest: Clear. Heart: Regular. Extremities: Show no significant edema or cyanosis except trace edema in the actual hand. Neuro: Cranial nerve exam, she does not have any significant facial asymmetry. She has good excursi ons and smiling. Hearing intact. Tongue and palate are in midline. 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 In the left lower extremity, 4/5 proximally and di stally and the right upper and lower extremity 5/5. Sensation decreased to light touch, temperature in the left upper and lower extremity compared to the right upper and lower extremity. Coordination intact in upper and lower extremities. Gait, she requires maximal assistance to stand and ambulate _ . Assessment: Ms. Jackson is a 67-year-old patient with multiple stroke risk factors. She had a stroke in the setting of stopping her Plavix following breast mastectomy and did not restart. Further, she has diabetes, hypertension, dyslipidemia, and smoking significant amount of cigarettes. Plan: 1.Aggressive management of comorbid conditions. 2.Inpatient rehabilitation to help recover from the deficits due to her stroke. 3.The patient was strongly counseled to stop smoking cigarettes. 4.Chest x-ray may need to be repeated to rule out the presence of possible pneumonia. Initial chest x-ray on the was lungs are clear, but she does have an elevated white blood cell count of 16.9, initially was 19.6. Perhaps, procalcitonin and lactic acid may be helpful. LB/MODL Voice ID: [id number] Report ID: [id number]
[2022-05-11 05:51] LABS: Absolute Lymphocytes (CBC) 5.1 K/uL (0.7-4.9); Hematocrit 36.2 % (36.0-45.0); MCV 88.7 fL (80-100); MPV 9.2 fL (7.6-11.3); RBC Red Blood Cell Count 4.08 M/uL (3.86-4.86)
[2022-05-11 06:18] LABS: Albumin 2.5 g/dL (3.4-5.0); Bilirubin Total 0.4 mg/dL (0.2-1.0); Potassium 4.1 mmol/L (3.5-5.1); Protein, Total 6.2 g/dL (6.4-8.2)
[2022-05-11] MEDS: INSULIN -REGULAR HUMAN 50 UNIT/0.5 ML ML SQ SCH ×4 (07:30→21:00)
--- NOTE | 2022-05-11 09:05 | ECHO ---
HEIGHT: 5 ft 2 in WEIGHT: 239 lb 11.2 oz DATE OF STUDY: 05/10/[address]: Isidro Rendon NP 2-DIMENSIONAL: YES M.MODE: YES DOPPLER: YES COLOR FLOW: YES TDS: YES PORTABLE: YES DEFINITY: NO BUBBLE STUDY: NO DIAGNOSIS: CEREBRAL VASCULAR ACCIDENT CARDIAC HISTORY: CATHERIZATION: NO SURGERY: NO PROSTHETIC VALVE: NO PACEMAKER: NO MEASUREMENTS (cm) DIASTOLIC (NORMALS) SYSTOLIC (NORMALS) IVSd 1.1 (0.6-1.2) LA Diam (1.9-4.0) LVEF 63% LVIDd 3.6 (3.5-5.7) LVIDs 2.4 (2.0-3.5) %FS 33% LVPWd 1.1 (0.6-1.2) Ao Diam (2.0-3.7) 2 DIMENSIONAL ASSESSMENT: RIGHT ATRIUM: NORMAL LEFT ATRIUM: NORMAL RIGHT VENTRICLE: NORMAL LEFT VENTRICLE: NORMAL TRICUSPID VALVE: NORMAL MITRAL VALVE: NORMAL PULMONIC VALVE: NORMAL AORTIC VALVE: NORMAL PERICARDIAL EFFUSION: NONE AORTIC ROOT: NORMAL LEFT VENTRICULAR WALL MOTION: NORMAL. DOPPLER/COLOR FLOW: NORMAL. COMMENTS: TECHNICALLY DIFFICULT STUDY. GROSSLY NORMAL LEFT VENTRICULAR SIZE AND FUNCTION. NO THROMBUS OR VEGETATION. TECHNOLOGIST: MARYA MAC
[2022-05-11] MEDS: CLOPIDOGREL 75 MG TABLET PO SCH (09:14)
[2022-05-11] MEDS: ENOXAPARIN 40 MG/0.4 ML SQ SCH (09:14)
[2022-05-11] MEDS: DOCUSATE NA 100 MG CAP PO SCH ×2 (09:14→21:19)
[2022-05-11] MEDS: CIPROFLOXACIN HCL 500 MG TAB PO SCH ×2 (09:14→21:18)
[2022-05-11] MEDS: FOLIC ACID 1 MG TABLET PO SCH (09:14)
[2022-05-11] MEDS: ASPIRIN EC 81 MG TAB PO SCH (09:14)
--- NOTE | 2022-05-11 09:14 | RAD REPORT ---
EXAM DESCRIPTION: RAD - Chest Single View - 05/11/2022 6:54 am CLINICAL HISTORY: rule out PNA Chest pain. COMPARISON: Chest Single View dated 05/09/2022; Chest Pa And Lat (2 Views) dated 05/03/2022; Chest Sin gle View dated 07/08/2021; CHEST SINGLE VIEW dated 02/27/2013 FINDINGS: Portable technique limits examination quality. Mildly prominent interstitial markings are again seen, unchanged. The heart is mildly enlarged in siz e. Postsurgical changes with bilateral surgical drains noted. IMPRESSION: No suspicious interval change since 05/09/2022 study.
[2022-05-11] MEDS: HYDROCODONE/APAP 5/325 MG TAB PO PRN ×2 (09:15→22:31)
--- NOTE | 2022-05-11 16:35 | PN ---
Date of Progress Note: 05/11/2022 Diagnoses: History of recent stroke, history of breast cancer status post bilateral mastectomies. Subjective: The patient is doing well. She is in good spirit. She is moving. She is getting physi richard therapy. Today, we changed the dressings. Flaps are intact. MARYLU drains are diminishing in size and we removed 2 of them under direct visualization and left 3 behind. From the surgical standpoint, she is improving. Objective: Abdomen: Soft and depressible. Extremities: Bilateral arm with no swelling at this moment. Good peripheral pulses. Plan: The plan will be continued medical treatment. We understand anticoagulation have to be given, so we expect some bruises over the surgical sites and more possibility of hematomas over the flaps, but that I believe is less life-threatening than stroke. She understands too. She is in good spirit s. She is moving around, receiving physical therapy. JOHN/JEANNETTE Voice ID: [id number] Report ID: [id number]
--- NOTE | 2022-05-11 18:01 | P.PN ---
Subjective Date of Service: 05/11/22 Chief Complaint: CVA No acute events overnight. She states that her left arm still feels heavy, but is slightly improved compared to yesterday. Review of Systems 10-point ROS is otherwise unremarkable Neurological: Weakness (LUE, LLE) Physical Examination - Vital Signs Temperature: 98.7 F Blood Pressure: 140/71 Pulse: 68 Respirations: 18 Pulse Ox (%): 94 - Studies Medications List Reviewed: Yes Assessment And Plan - Plan NIH Stroke Scale 1a. Level of consciousness: 0 - Alert; keenly responsive 1b. LOC questions: 0 - Both questions right 1c. LOC commands: 0 - Performs both tasks 2. Best Gaze: 0 - Normal 3. Visual: 0 - No visual loss 4. Facial Palsy: 0 - Normal symmetry 5a. Motor left arm: 1 - drift, but does not hit the bed 5b. Motor right arm: 0 - No drift for 10 seconds 6a. Motor left le - Drifts, hits bed 6b. Motor right le - No drift for 5 seconds 7. Limb ataxia: 0 - No ataxia 8. Sensory: 0 - Normal; no sensory loss 9. Best Language: 0 - Normal; no aphasia 10. Dysarthria: 0 - Normal 11. Extinction and Inattention: 0 - No abnormality 12. Distal motor function: 0 - No abnormality Total Score: 3 # Acute Right Parietal Cerebrovascular Accident with residual Left-Sided Deficits # History of Cerebrovascular Accident in June 2021 # Moderate Right Internal Carotid Artery Stenosis # Mild Left Proximal Internal Carotid Artery Stenosis # Moderate Left External Carotid Artery Stenosis # Hyperlipidemia - Consulted Neurology - recommendations appreciated - Was outside of window for tPA - NIHSS = 4 - Evaluation thus far: - CT head = "4.8 centimeter low-density area right parietal lobe probably an acute infarction." - CT head angiogram = "no acute abnormality is displayed." - CT neck angiogram = "narrowing of the right internal carotid artery at the C2 level estimated to be 50% stenosis." - MRI brain = "moderate sized right posterior frontal and parietal cortical infarcts. Most of the infarct is favored acute however some wispy enhancement is noted that could indicate an acute on subacute infarct. Follow up contrast enhanced MRI in 2-3 months is recommended to ensure resolution of enhancement." - MRI brain angiogram = "no acute abnormality is displayed." - MRI neck angiogram = "1. Mild (<50%) left proximal ICA stenosis. Moderate left ECA stenosis. The left common carotid artery is widely patent. 2. Artifact at the right proximal common carotid artery simulates the presence of a stenosis. The vessel appears widely patent on the neck CTA from 05/09/22. No hemodynamically significant stenosis of the right CCA, ICA, or ECA. 3. Widely patent vertebral arteries." - q4hr neurochecks - TTE = "technically difficult study. grossly normal left ventricular size and function. no thrombus or vegetation." - PT/OT evaluation requested - Recommends inpatient rehab - appreciate case management assistance - Ordered risk profile: - Hgb A1c = 7.0 % - Lipid panel, TC 98, TG 87, LDL 45, HDL 36 - TSH = 2.81 - Continue aspirin, atorvastatin, clopidogrel - Counseled on the importance of medication compliance # Hyperglycemia in Type II Diabetes Mellitus - Hgb A1c = 7.0 % - Continue correction scale insulin # S/P Bilateral Mastectomy with 5 drains (3 on right, 2 on left) (05/04/22) - General Surgery consulted - recommendations appreciated - Leukocytosis slightly worse today - Ordered procalcitonin, lactate, blood cultures - Continue ciprofloxacin prescribed by General Surgeon (end date: 05/12/22) - Drains are clean with minimal serosanguineous drainage present # Tobacco Use Disorder - Extensive tobacco cessation counseling provided # Thyroid Nodule (22 mm) - Follow-up with PCP for further evaluation Kevin Chinchilla MD Physician Review: Patient Assessed, Agree with Above Assessment and Plan
[2022-05-11] MEDS: ATORVASTATIN 40 MG TAB PO SCH (21:19)
[2022-05-12 03:50] LABS: Hematocrit 34.9 % (36.0-45.0); MCV 88.8 fL (80-100); RBC Red Blood Cell Count 3.94 M/uL (3.86-4.86)
[2022-05-12 03:57] LABS: Potassium 3.9 mmol/L (3.5-5.1)
[2022-05-12] MEDS: INSULIN -REGULAR HUMAN 50 UNIT/0.5 ML ML SQ SCH ×4 (07:30→20:02)
[2022-05-12] MEDS ORDERED: POTASSIUM CL SA 10 MEQ TAB PO ONE (09:00)
[2022-05-12] MEDS: CIPROFLOXACIN HCL 500 MG TAB PO SCH (09:38)
[2022-05-12] MEDS: ENOXAPARIN 40 MG/0.4 ML SQ SCH (09:38)
[2022-05-12] MEDS: FOLIC ACID 1 MG TABLET PO SCH (09:39)
[2022-05-12] MEDS: CLOPIDOGREL 75 MG TABLET PO SCH (09:39)
[2022-05-12] MEDS: DOCUSATE NA 100 MG CAP PO SCH ×2 (09:39→20:02)
[2022-05-12] MEDS: ASPIRIN EC 81 MG TAB PO SCH (09:39)
[2022-05-12] MEDS: HYDROCODONE/APAP 5/325 MG TAB PO PRN (18:17)
--- NOTE | 2022-05-12 19:36 | P.PN ---
Subjective Date of Service: 05/12/22 Chief Complaint: CVA No acute events overnight. She states that her symptoms are unchanged compared to yesterday. She endorses no new concerns this morning. Review of Systems 10-point ROS is otherwise unremarkable Neurological: Weakness (LUE, LLE) Physical Examination - Vital Signs Temperature: 97.7 F Blood Pressure: 123/63 Pulse: 70 Respirations: 18 Pulse Ox (%): 96 - Studies Medications List Reviewed: Yes Assessment And Plan - Plan NIH Stroke Scale 1a. Level of consciousness: 0 - Alert; keenly responsive 1b. LOC questions: 0 - Both questions right 1c. LOC commands: 0 - Performs both tasks 2. Best Gaze: 0 - Normal 3. Visual: 0 - No visual loss 4. Facial Palsy: 0 - Normal symmetry 5a. Motor left arm: 1 - drift, but does not hit the bed 5b. Motor right arm: 0 - No drift for 10 seconds 6a. Motor left le - Drifts, hits bed 6b. Motor right le - No drift for 5 seconds 7. Limb ataxia: 0 - No ataxia 8. Sensory: 0 - Normal; no sensory loss 9. Best Language: 0 - Normal; no aphasia 10. Dysarthria: 0 - Normal 11. Extinction and Inattention: 0 - No abnormality 12. Distal motor function: 0 - No abnormality Total Score: 3 # Acute Right Parietal Cerebrovascular Accident with residual Left-Sided Deficits # History of Cerebrovascular Accident in June 2021 # Moderate Right Internal Carotid Artery Stenosis # Mild Left Proximal Internal Carotid Artery Stenosis # Moderate Left External Carotid Artery Stenosis # Hyperlipidemia - Consulted Neurology - recommendations appreciated - Was outside of window for tPA - NIHSS = 4 - Evaluation thus far: - CT head = "4.8 centimeter low-density area right parietal lobe probably an acute infarction." - CT head angiogram = "no acute abnormality is displayed." - CT neck angiogram = "narrowing of the right internal carotid artery at the C2 level estimated to be 50% stenosis." - MRI brain = "moderate sized right posterior frontal and parietal cortical infarcts. Most of the infarct is favored acute however some wispy enhancement is noted that could indicate an acute on subacute infarct. Follow up contrast enhanced MRI in 2-3 months is recommended to ensure resolution of enhancement." - MRI brain angiogram = "no acute abnormality is displayed." - MRI neck angiogram = "1. Mild (<50%) left proximal ICA stenosis. Moderate left ECA stenosis. The left common carotid artery is widely patent. 2. Artifact at the right proximal common carotid artery simulates the presence of a stenosis. The vessel appears widely patent on the neck CTA from 05/09/22. No hemodynamically significant stenosis of the right CCA, ICA, or ECA. 3. Widely patent vertebral arteries." - q4hr neurochecks - TTE = "technically difficult study. grossly normal left ventricular size and function. no thrombus or vegetation." - PT/OT evaluation requested - Recommends inpatient rehab - appreciate case management assistance - Anticipate discharge tomorrow - Ordered risk profile: - Hgb A1c = 7.0 % - Lipid panel, TC 98, TG 87, LDL 45, HDL 36 - TSH = 2.81 - Continue aspirin, atorvastatin, clopidogrel - Counseled on the importance of medication compliance # Hyperglycemia in Type II Diabetes Mellitus - Hgb A1c = 7.0 % - Continue correction scale insulin # S/P Bilateral Mastectomy with 5 drains (3 on right, 2 on left) (05/04/22) - General Surgery consulted - recommendations appreciated - Gen Surg removed 2 drains, now with 2 on right and 1 on left - Leukocytosis stable - Procalcitonin <0.05 - Lactate 0.9 - Blood Cultures x 2 NGTD - Continue ciprofloxacin prescribed by General Surgeon (end date: 05/12/22) - Drains are clean with minimal serosanguineous drainage present # Tobacco Use Disorder - Extensive tobacco cessation counseling provided # Thyroid Nodule (22 mm) - Follow-up with PCP for further evaluation Kevin Chinchilla MD Discharge Plan: Transfer (inpatient rehab) Physician Review: Patient Assessed, Agree with Above Assessment and Plan
[2022-05-12] MEDS: ATORVASTATIN 40 MG TAB PO SCH (20:02)
[2022-05-13 04:17] LABS: Hematocrit 35.1 % (36.0-45.0); MCV 89.7 fL (80-100); MPV 9.2 fL (7.6-11.3); RBC Red Blood Cell Count 3.91 M/uL (3.86-4.86)
[2022-05-13 06:33] VITALS: O2SAT 95
[2022-05-13] MEDS: HYDROCODONE/APAP 5/325 MG TAB PO PRN ×2 (06:58→15:18)
[2022-05-13] MEDS: INSULIN -REGULAR HUMAN 50 UNIT/0.5 ML ML SQ SCH ×2 (07:30→11:30)
--- NOTE | 2022-05-13 08:40 | P.DS ---
Admission Date: 05/09/22 Discharge Date: 05/13/22 Disposition: TRANSFER TO INPATIENT REHAB Discharge Condition: GOOD Reason for Admission: CVA Consultations: 1. Neurology 2. General Surgery Hospital Course: DIAGNOSES: # Acute Right Parietal Cerebrovascular Accident with residual Left-Sided Deficits # History of Cerebrovascular Accident in June 2021 # Moderate Right Internal Carotid Artery Stenosis # Mild Left Proximal Internal Carotid Artery Stenosis # Moderate Left External Carotid Artery Stenosis # Hyperlipidemia # Hyperglycemia in Type II Diabetes Mellitus # S/P Bilateral Mastectomy with 5 drains (3 on right, 2 on left) (05/04/22) # Tobacco Use Disorder # Thyroid Nodule (22 mm) HOSPITAL COURSE: Ms. Maritza Jackson is a pleasant 67 year old female with a past medical history significant for a prior stroke (June 2021), type 2 diabetes mellitus, hyperlipidemia, tobacco use disorder, and recent bilateral mastectomy who was admitted to the [facility] on 05/09/2022 for acute leftsided deficits. Upon evaluation, she was found to have an acute right parietal cerebrovascular accident, but was outside of the window for tPA. Her evaluation included a CT head revealing a "4.8 centimeter low-density area right parietal lobe probably an acute infarction," a CT head angiogram with "no acute abnormality is displayed," a CT neck angiogram revealing, "narrowing of the right internal carotid artery at the C2 level estimated to be 50% stenosis," a MRI brain revealing a "moderate sized right posterior frontal and parietal cortical infarcts. Most of the infarct is favored acute however some wispy enhancement is noted that could indicate an acute on subacute infarct. Follow up contrast enhanced MRI in 2-3 months is recommended to ensure resolution of enhancement," an MRI brain angiogram with "no acute abnormality is displayed," and a MRI neck angiogram with "1. Mild (<50%) left proximal ICA stenosis. Moderate left ECA stenosis. The left common carotid artery is widely patent. 2. Artifact at the right proximal common carotid artery simulates the presence of a stenosis. The v essel appears widely patent on the neck CTA from 05/09/22. No hemodynamically significant stenosis of the right CCA, ICA, or ECA. 3. Widely patent vertebral arteries." Her transthoracic echocardiogram revealed, ""technically difficult study. grossly normal left ventricular size and function. no thrombus or vegetation." Neurology was consulted and Dr. Deng evaluated her. He recommended that she be started on aspirin, atorvastatin, and clopdogrel. She was evaluated by Physical Therapy, and with their assistance she was accepted to [facility]. Of note, she was found to have a thyroid nodule measuring 22 mm. She was notified to present to her PCP for further testing (i.e. FNA) as an outpatient. In regards to her surgical wounds, General Surgery (Dr. Frias) followed her during this hospitalization. On 05/13/2022, she was seen on morning rounds and deemed medically stable for discharge. She was discharged with instructions to schedule follow-up appointments (after her inpatient rehab discharge) with her PCP in 3-5 days, General Surgery (Dr. Frias) in 5-7 days, and with Neurology (Dr. Deng) in 2-3 weeks. She was given the opportunity to ask questions and reported no further questions. Furthermore, all questions were answered to the best of my ability. Today, I personally spent 20 minutes on her case, of which greater than 50% of the time was spent in patient education, counseling, and coordination of care as described above. PHYSICAL EXAMINATION: General: Alert, In no apparent distress, Oriented x3 HEENT: Atraumatic, PERRLA, Mucous membr. moist/pink, EOMI, Sclerae nonicteric Neck: Supple, Without JVD or thyroid abnormality Respiratory: Clear to auscultation bilaterally, Normal air movement Cardiovascular: No edema, Regular rate/rhythm, Normal S1 S2, No gallops, No rubs, No murmurs Gastrointestinal: Normal bowel sounds, Soft and benign, Non-distended, No tenderness, No rebound, No guarding Musculoskeletal: No clubbing, Other (2 right MARYLU drains, 1 left MARYLU drains from bilateral mastectomy. Minimal serosangineous fluid present.) Integumentary: No rashes Neurological: Normal speech, Sensation intact, Cranial nerves 3-12 intact, Normal affect, Abnormal strength (3/5 strength in LUE, 4+/5 strength in LLE) NIH Stroke Scale 1a. Level of consciousness: 0 - Alert; keenly responsive 1b. LOC questions: 0 - Both questions right 1c. LOC commands: 0 - Performs both tasks 2. Best Gaze: 0 - Normal 3. Visual: 0 - No visual loss 4. Facial Palsy: 0 - Normal symmetry 5a. Motor left arm: 1 - drift, but does not hit the bed 5b. Motor right arm: 0 - No drift for 10 seconds 6a. Motor left le - Drifts, hits bed 6b. Motor right le - No drift for 5 seconds 7. Limb ataxia: 0 - No ataxia 8. Sensory: 0 - Normal; no sensory loss 9. Best Language: 0 - Normal; no aphasia 10. Dysarthria: 0 - Normal 11. Extinction and Inattention: 0 - No abnormality 12. Distal motor function: 0 - No abnormality Total Score: 3 Vital Signs/Physical Exam: Temp Pulse Resp BP Pulse Ox 98.2 F 77 16 125/69 94 05/13/22 04:00 05/13/22 04:00 05/13/22 06:58 05/13/22 04:00 05/13/22 06:58 Laboratory Data at Discharge: WBC 15.5 K/uL (4.3-10.9) H D 05/13/22 03:20 Hgb 11.8 g/dL (12.0-15.0) L 05/13/22 03:20 Hct 35.1 % (36.0-45.0) L 05/13/22 03:20 Plt Count 400 K/uL (152-406) 05/13/22 03:20 PT 12.0 SECONDS (9.5-12.5) 05/09/22 15:58 INR 1.09 05/09/22 15:58 APTT 25.7 SECONDS (24.3-36.9) 05/09/22 15:58 Sodium 141 mmol/L (136-145) 05/13/22 03:20 Potassium 4.0 mmol/L (3.5-5.1) 05/13/22 03:20 BUN 13 mg/dL (7-18) 05/13/22 03:20 Creatinine 0.60 mg/dL (0.55-1.3) 05/13/22 03:20 Glucose 160 mg/dL (74-106) H 05/13/22 03:20 Magnesium 2.0 mg/dL (1.8-2.4) 05/11/22 05:25 Total Bilirubin 0.4 mg/dL (0.2-1.0) 05/11/22 05:25 AST 18 U/L (15-37) 05/11/22 05:25 ALT 25 U/L (12-78) 05/11/22 05:25 Alkaline Phosphatase 109 U/L (45-117) 05/11/22 05:25 Triglycerides 87 mg/dL (<150) 05/10/22 05:10 Cholesterol 98 mg/dL (<200) 05/10/22 05:10 HDL Cholesterol 36 mg/dL (40-60) L 05/10/22 05:10 Cholesterol/HDL Ratio 2.72 05/10/22 05:10 Home Medications: Atorvastatin Calcium [Lipitor] 40 mg PO BEDTIME #30 tab 07/21/21 Clopidogrel Bisulfate [Plavix*] 75 mg PO DAILY #30 tablet 07/21/21 Glimepiride 1 mg PO DAILY #30 07/21/21 Metformin ER [Glucophage ER*] 500 mg PO BIDWM #60 tab.sa 07/21/21 LORazepam [Ativan*] 0.5 mg PO BID PRN 05/03/22 Losartan Potassium 100 mg PO DAILY 05/03/22 Aspirin 81 mg PO DAILY #30 tab.chew 05/13/22 Docusate [Colace Cap*] 100 mg PO BID cap 05/13/22 New Medications: Aspirin 81 mg PO DAILY #30 tab.chew Physician Discharge Instructions: PLEASE COMPLETE GOLD SHEET FOR STROKE PLEASE COMPLETE PATIENT SATISFACTION FORM FOR STROKE Diet: AHA Activity: Per PT Followup: Kurt Deng MD [ASSOCIATE-ACTIVE - CAN ADMIT] - (Call to schedule appointment) Dane Frias MD [ACTIVE - CAN ADMIT] - Time spent managing pt's care (in minutes): 20
[2022-05-13] MEDS: CLOPIDOGREL 75 MG TABLET PO SCH (09:15)
[2022-05-13] MEDS: FOLIC ACID 1 MG TABLET PO SCH (09:15)
[2022-05-13] MEDS: ASPIRIN EC 81 MG TAB PO SCH (09:15)
[2022-05-13] MEDS: DOCUSATE NA 100 MG CAP PO SCH (09:15)
[2022-05-13] MEDS: ENOXAPARIN 40 MG/0.4 ML SQ SCH (09:15)
[2022-05-13 14:48] VITALS: BP 137/66; TEMP 98
--- NOTE | 2022-05-13 19:05 | PN ---
Date of Progress Note: 05/13/2022 Subjective: History of CVA. History of also a breast cancer with mastectomies. Patient doing well. No complaint. Awake and alert, good spirits. Objective: Chest: Clear. Intact surgical site. We changed the dressings yesterday. MARYLU drains, we removed few; we still have some there. Extremities: Good capillary refill. No lymphedema. Plan: Patient will be in Rehab. We will follow the patient when she is up there. We encouraged amb ulation if possible and safe. Incentive spirometry and monitor the MARYLU drains. HM/MODL Voice ID: [id number] Report ID: [id number]
== END 2022-05-13 15:35 | DRG 65 ==
LOC: ER 15:11 → ERHOLD 18:59 → 2ND 19:39
PROVIDERS: ADMIT Internal Medicine; ATTEND Internal Medicine
DX: I63.9 Cerebral infarction, unspecified (principal); G81.94 Hemiplegia, unspecified affecting left nondominant side; I10 Essential (primary) hypertension; E78.5 Hyperlipidemia, unspecified; R29.705 NIHSS score 5; C50.919 Malignant neoplasm of unspecified site of unspecified female breast; I65.23 Occlusion and stenosis of bilateral carotid arteries; E11.65 Type 2 diabetes mellitus with hyperglycemia; E04.1 Nontoxic single thyroid nodule; F17.210 Nicotine dependence, cigarettes, uncomplicated; Z90.13 Acquired absence of bilateral breasts and nipples; Z86.73 Personal history of transient ischemic attack (TIA), and cerebral infarction without residual deficits; Z20.822 Contact with and (suspected) exposure to COVID-19
CPT/HCPCS: 36415; 70450; 70496; 70498; 70544; 70549; 70553; 71045; 80048; 80053; 80061; 82565; 82947; 83036; 83605; 83735; 84145; 84439; 84443; 85025; 85027; 85610; 85730; 87040; 92610; 93005; 93306; 96374; 97116; 97161; 97165; 97530; 99285; A9577; J1650; Q9967; U0003

== ENCOUNTER 2022-05-12 14:15 | Inpatient (IN) | payer OTHER ==
--- NOTE | 2022-05-13 12:26 | R.PREADM ---
PRE-ADMISSION SCREENING FORM SCREENING DATE AND TIME 05/10/2022 15:07 (CDT) ANTICIPATED REHAB ADMISSION DATE 05/12/2022 REFERRING FACILITY [facility] REFERRAL DATE AND TIME 05/10/2022 15:07 (CDT) REFERRAL ROOM# 216 ACUTE ADMIT DATE 05/09/2022 Previous Rehabilitation(s): No. REFERRING PHYSICIAN Kevin Chinchilla REHAB FACILITY [facility] PHYSICIAN REVIEWER Dr. Ramona Mchugh MR# [id number] NAME RANJEET LIMON ADDRESS [address] [place] [id number] DATE OF 1955 AGE 67 SSN# [id number] GENDER female MARITAL STATUS Single (Never ) ADMIT FROM 02 - [facility] PRE-HOSPITAL LIVING SETTING 01 - Home (private home/apt. board/care, assisted living, skilled nursing, transitional living) HOME TYPE AND DETAILS Type of home: single family house # of levels in the residence: 1 # of steps within the residence: 0 # of steps to enter the residence: 0 PRE-HOSPITAL LIVING WITH Family/Relatives FAMILY SUPPORT Yes PHONE PRIMARY FAMILY CONTACT ON ADM.? no IS PRIMARY FAMILY CONTACT AUTH. REP.? no PHONE 1ST CONTACT ON ADM. no IS 1ST CONTACT AUTH. REP.? no PHONE 2ND CONTACT ON ADM.? no PATIENT EMPLOYMENT STATUS Retired (for age) PATIENT EMPLOYER No Employer PAYOR INFORMATION: 1ST PAYOR NAME [employer] MEDICARE ADVANTAGE INJURY/ILLNESS DUE TO ACCIDENT? No ANOTHER GREEN PARTY RESPONSIBLE? No PRIMARY REHAB/ACUTE DIAGNOSIS: Cerebral infarction due to unspecified occlusion or stenosis of right posterior cerebral artery (I63. 531) ONSET DATE 05/09/2022 REHAB IMPAIRMENT CATEGORY (DWAIN): 01 Stroke (STR) MEETS 60% rule AFFECTED EXTREMITIES: LLE, and LUE PRIMARY DIAGNOSIS-RELATED SURGERIES: None COMORBID REHAB/ACUTE DIAGNOSES: - Tier 3 Morbid (severe) obesity due to excess calories (E66.01) - Non-Tiered Type 2 diabetes mellitus (E11) Hyperlipidemia, unspecified (E78.5) Essential (primary) hypertension (I10) INTERVENTIONS: - CVA Provide aggressive PT, OT, and Speech therapy to improve pt functionality Regularly assess Neuro status Provide Safety measures - Type 2 Diabetes Assess LE for temperature, pulses, color, and sensation. Assess for signs of hyperglycemia. Monitor blood glucose Monitor pt BP Monitor the patients [id number] hemoglobin. Weight daily. - Hyperlipidemia Administer medications indicated by physician and monitor for effectiveness Implement healthy diet Promote physical activity Monitor blood pressure and maintain within parameters through administering routine medication Monitor LDL level and treat with prescribed medications - Wound care Assess/Monitor multiple MARYLU drains Administer wound care per MD orders Assess/Monitor pt of s/s of infection RISK FOR COMPLICATIONS: - DVT Active and Passive ROM exercises Administer medications per MD order Assist patient with frequent position changes Elevate BLE - Skin Breakdown Encourage ambulation as tolerated Repositioning q 2 hours Use of pillows or foam wedges while in bed - Pain Anticipate the need for pain medication for optimal pain managment Assist patient with frequent position changes at least every 2 hours Assess pt for pain and Administer prescribed pain medication as needed Educate patient on relaxation and deep breathing techniques - Falls Assess for medication side effects Maintain call light within patient reach for easy access to nursing assistance Provide assistance getting out of bed and with ambulation Provide assistive devices - Stroke Assess/ Monitor and maintain patient pain level Assess/ Monitor patient blood pressure - Infection Assess for s/s of infection Assess pt response to antibiotics Monitor pt v/s SUMMARY OF ACUTE HOSPITALIZATION: Pt. is a 67 yo Right-handed HF. On 05/09/2022 Pt. presented to [facility] with sudden onset of left-side weakness. On 05/09/2022 she was admitted to [facility] with diagnosis Cerebral infarction due to uns pecified occlusion or stenosis of right posterior cerebral artery (I63.531). Her impairment category is Stroke 01 - Left Body (Right Brain) (01.1). Pre-morbidly, Pt. was independent/mod-I in Locomotion and Self-Care; and she had good Safety Awarenes s, Balance, Transfers Control, Sphincter Control, and Endurance. Currently, she has deficits of Locomotion, Safety Awareness, Balance, Transfers Control, Sphincter Co ntrol, Endurance, and Self-Care. Pt. is now referred to [facility] for acute in-patient rehabilitation in order to maximize patient's functional independence in activities of daily living, strength, ROM, and mobi lity. Patient has realistic goal of being discharged at assistance level 6-Dayana to reside at Home with Fam doug/Relatives. PAST MEDICAL HISTORY Essential (primary) hypertension (I10) Hyperlipidemia, unspecified (E78.5) Morbid (severe) obesity due to excess calories (E66.01) Type 2 diabetes mellitus (E11) Acute CVA PAST SURGICAL HISTORY: ELIANA Mastectomy MEDICATION ALLERGIES: No Known Drug Allergies (NKDA) ENVIRONMENTAL ALLERGIES: - Substance Allergies None Known - Other Allergies None Known CODE STATUS: Full code WEIGHT/HEIGHT/BMI: WEIGHT 239 lbs HEIGHT 5' 2" BMI 43.7 DIET: - Diet Type Regular - Diet - Solid Texture Regular - Diet - Liquid Texture Regular - Tube Feed N/A SKIN DIAGRAM: MARYLU Drain on Chest; extent - small; stage - NS(Not Stageable). Treatment - Per Physician's Orders. MARYLU Drain on Right breast; extent - small; stage - NS(Not Stageable). Treatment - Per Physician's Orde rs. MARYLU Drain on Left shoulder; extent - small; stage - NS(Not Stageable). Treatment - Per Physician's Ord ers. MARYLU Drain on Left breast; extent - small; stage - NS(Not Stageable). Treatment - Per Physician's Order s. REVIEW OF SYSTEMS: - Gen Alert and awake Lying in bed No apparent distress Oriented to: person, time, and place - Vital Signs Temperature: 97.5 F SBP/DBP: 151/76 Pulse: 83 Resp: 20 Vital signs stable, afebrile - CVS RRR VITAL SIGNS Temperature: 97.5 F SBP/DBP: 151/76 Pulse: 83 Resp: 20 Vital signs stable, afebrile 05/10/2022 MEDICATIONS/TREATMENT: Other- See attached MAR (Medication Administration Record). CURRENT SPHINCTER CONTROL: Pre-hospital bladder status: unspecified # of bladder accidents in the last 7 days prior to screenin Pre-hospital bowel status: unspecified # of bowel accidents in the last 7 days prior to screenin Last Bowel Movement Date: 05/10/2022 CURRENT LOCOMOTION STATUS: distance walked 0 feet DETAILED CURRENT FUNCTIONAL STATUS: - Bladder accident frequency: 7-Ind - No accidents in the past 7 days - Bowel accident frequency: 7-Ind - No accidents in the past 7 days - Walking score based on distance walked: 0(N/A) - Wheelchair score based on distance traveled: 0(N/A) QI SCORES: - Self-Care A. Eating 04-Supervision or touching assistance B. Oral hygiene 04-Supervision or touching assistance C. Toileting hygiene 02-Substantial/maximal assistance E. Shower/bathe self 02-Substantial/maximal assistance F. Upper body dressing 02-Substantial/maximal assistance G. Lower body dressing 02-Substantial/maximal assistance H. Putting on/taking off footwear 02-Substantial/maximal assistance - Mobility A. Roll left and right 88-Not attempted due to medical condition or safety concerns B. Sit to lying 02-Substantial/maximal assistance C. Lying to sitting on side of bed 02-Substantial/maximal assistance D. Sit to stand 02-Substantial/maximal assistance E. Chair/[id number]-ux-[id number] transfer 88-Not attempted due to medical condition or safety concerns F. Toilet transfer 88-Not attempted due to medical condition or safety concerns G. Car transfer 88-Not attempted due to medical condition or safety concerns I. Walk 10 feet 88-Not attempted due to medical condition or safety concerns J. Walk 50 feet with two turns 88-Not attempted due to medical condition or safety concerns K. Walk 150 feet 88-Not attempted due to medical condition or safety concerns L. Walking 10 feet on uneven surfaces 88-Not attempted due to medical condition or safety concerns M. 1 step (curb) 88-Not attempted due to medical condition or safety concerns N. 4 steps 88-Not attempted due to medical condition or safety concerns O. 12 steps 88-Not attempted due to medical condition or safety concerns P. Picking up object 88-Not attempted due to medical condition or safety concerns R. Wheel 50 feet with two turns 09-Not applicable S. Wheel 150 feet 09-Not applicable - Bladder and Bowel Bladder continence 2-Incontinent less than daily Bowel continence 2-Frequently incontinent - Endurance Poor - Balance Good - Safety Awareness Fair CURRENT FUNC. DEFICITS: Self-Care, Endurance, Safety Awareness, and Mobility CURRENT / PREVIOUS ASSISTIVE DEVICES: Shower Chair Standard Walker Straight Cane HISTORY OF FALLS. HAS THE PATIENT HAD TWO OR MORE FALLS IN THE PAST YEAR OR ANY FALL WITH INJURY IN T HE PAST YEAR?: No PRIOR SURGERY. DID THE PATIENT HAVE MAJOR SURGERY DURING THE 100 DAYS PRIOR TO ADMISSION?: Yes THERAPY NOTES FROM ACUTE CARE: Attached. SPECIAL NEEDS: - Safety Concerns Skin breakdown precautions needed due to skin breakdown risk PRECAUTIONS: - Weight Bearing Precaution WBAT left LE PATIENT NEEDS ACTIVE AND ONGOING THERAPEUTIC INTERVENTION OF MULTIPLE THERAPY DISCIPLINES, INCLUDING: - Dietary and Nutrition Adequate Nutrition. Nutritional Education. Nutritional Supplements. - Occupational Therapy Cognitive Retraining. Patient needs Occupational Therapy for a daily minimum of 1.5 hours at least 5 out of 7 days, to improve Activities of Daily Living, including: Eating, Grooming, Bathing, Dressing, Toileting, Toilet Transfers, Community Reintegration, Higher functional activities, Adaptive Equipme nt, Splinting, Household Tasks, and Other activities as determined. Visual Perceptual Training. - Speech Therapy Cognitive Training. Expressive Language Skills. Memory Strategies. Patient needs Speech Therapy for a daily minimum of 0.5 hours at least 5 out of 7 days, to improve: Swallowing, Cognition, Language Ski lls, and Compensatory Strategies. Receptive Language Skills. Speech Intelligibility Training. - Physical Therapy Patient needs Physical Therapy for a daily minimum of 1.5 hours at least 5 out of 7 days, to improve: Mobility, Strengthening, Transfers, Stretching, ROM, Endurance, Ability to manage stairs, Gait, and Balance. PATIENT NEEDS CLOSE MEDICAL SUPERVISION BY A REHABILITATION PHYSICIAN FOR: Coordination of Treatment Team Diabetes Management Medical and Co-Morbidity Management Wound Care Bowel and Bladder Management Post-Op Complications Pain Management PATIENT REQUIRES 24X7 REHAB NURSING FOR MEDICAL AND FUNCTIONAL MGT. OF THE FOLLOWING DEFICITS: Patient requires 24x7 Rehabilitation Nursing for: Pain Issues, Identifying and preventing risk factor s, Monitoring and reporting current medical conditions, Assisting with ambulation and transfer, Shania ting with all ADL-s, Teaching patients about disease process and medications, Family teaching, Provid ing safe environment, Bowel and Bladder Issues, Skin Integrity, and Medication Management PATIENT REQUIRES INTENSIVE, COORDINATED INTERDISCIPLINARY APPROACH TO REHAB: Patient needs Dietary and Nutrition Services for: Adequate Nutrition, Nutritional Supplements, and Nu tritional Education Patient needs Maintainer Central Office and/or Case Management for: Discharge Planning, Arranging Home Equipmen t or Services, and Family Interventions PATIENT REHAB POTENTIAL: Delicia LIMON is able and expected to receive 3 hours of individualized therapy daily on at least 5 of heaven ry 7 days Delicia LIMON's prognosis for significant practical improvement within a reasonable period of time appears Good Expected level of measurable improvement will be of a practical value to Delicia LIMON's functional capaci ty or adaptations to impairments Has a viable Discharge Plan Medically appropriate; condition is sufficiently stable to participate in intensive rehab program DISCHARGE PLAN: - Estimated Length of Stay (days) 17. - Consensus on plan Discharge plan has been discussed with primary caregiver. Patient/Family is in agreement with the barry n. Primary caregiver is in agreement with the plan. - Patient/Family Goals Return home independently. - Planned Living Setting Upon Discharge Home, to live with Family/Relatives. Transitional Living. RECOMMENDED CARE LEVEL: IRF RECOMMENDATION DETAILS: Recommended Admission to Comprehensive Rehabilitation Program to Increase Functional [place] [facility]ICIANS REVIEW AND ADMISSION DETERMINATION Admit - Based on my review of the Pre-Admission Screening results, in my medical judgment and experie nce, I concur with the findings and recommend admission to [facility], as this patient requires an IRF level of care. SIGNATURE PANEL: Clinical Liaison - [electronically] signed by Tiffanie Nuno on 05/11/2022 at 10:32 (CDT) Clinical Liaison - [electronically] signed by Jonelle George PTA on 05/13/2022 at 08:50 (CDT) Physician Reviewer - [electronically] signed by Dr. Ramona Mchugh on 05/13/2022 at 12:25 (CDT)
[2022-05-13] MEDS ORDERED: D50W 25 GM/50 ML SYRINGE IV PRN (16:39)
[2022-05-13] MEDS ORDERED: GLUCAGON 1 MG/VIAL IM PRN (16:39)
[2022-05-13] MEDS ORDERED: LORAZEPAM 0.5 MG TABLET PO PRN (16:45)
[2022-05-13] MEDS ORDERED: ONDANSETRON 4 MG (ODT) TAB PO PRN (16:50)
[2022-05-13] MEDS ORDERED: MELATONIN 3 MG TABLET PO PRN (16:51)
[2022-05-13] MEDS: METFORMIN ER 500 MG TAB PO SCH (17:11)
[2022-05-13] MEDS ORDERED: D10W 125 ML IV PRN (17:15)
[2022-05-13] MEDS: DOCUSATE NA 100 MG CAP PO SCH (19:23)
[2022-05-13] MEDS: ATORVASTATIN 40 MG TAB PO SCH (19:23)
[2022-05-13] MEDS: INSULIN -REGULAR HUMAN 50 UNIT/0.5 ML ML SQ SCH (19:35)
[2022-05-14 00:34] LABS: Specific Gravity >= 1.030 (1.005-1.030); Urine Bilirubin Negative (Negative); Urine Blood 2+ (Negative); Urine Color Yellow (Yellow); Urine Glucose Negative (Negative); Urine Protein Negative (Negative)
[2022-05-14 00:37] LABS: Urine Clarity Turbid (Clear)
[2022-05-14 01:29] LABS: Urine Bacteria >50 /HPF (<20); Urine RBC 21-50 /HPF (None Seen)
[2022-05-14 01:30] LABS: Urine Trichomonas Present /HPF (None Seen)
[2022-05-14] MEDS: HYDROCODONE/APAP 5/325 MG TAB PO PRN ×2 (03:04→11:04)
[2022-05-14 05:56] LABS: Absolute Lymphocytes (CBC) 5.4 K/uL (0.7-4.9); Hematocrit 34.9 % (36.0-45.0); MCV 88.2 fL (80-100); MPV 8.9 fL (7.6-11.3); RBC Red Blood Cell Count 3.96 M/uL (3.86-4.86)
[2022-05-14 06:14] LABS: Albumin 2.4 g/dL (3.4-5.0); Potassium 4.3 mmol/L (3.5-5.1); Prealbumin 12.4 mg/dL (20-40)
[2022-05-14] MEDS: INSULIN -REGULAR HUMAN 50 UNIT/0.5 ML ML SQ SCH ×4 (07:12→20:07)
[2022-05-14] MEDS: ENOXAPARIN 40 MG/0.4 ML SQ SCH (08:42)
[2022-05-14] MEDS: CLOPIDOGREL 75 MG TABLET PO SCH (09:29)
[2022-05-14] MEDS: GLIMEPIRIDE 2 MG TABLET PO SCH (09:29)
[2022-05-14] MEDS: DOCUSATE NA 100 MG CAP PO SCH ×2 (09:29→19:54)
[2022-05-14] MEDS: ASPIRIN EC 81 MG TAB PO SCH (09:31)
[2022-05-14] MEDS: METFORMIN ER 500 MG TAB PO SCH ×2 (09:31→16:58)
[2022-05-14] MEDS: LOSARTAN POTASSIUM 50 MG TABLET PO SCH (09:32)
[2022-05-14] MEDS: FOLIC ACID 1 MG TABLET PO SCH (09:32)
[2022-05-14] MEDS: ATORVASTATIN 40 MG TAB PO SCH (19:54)
--- NOTE | 2022-05-14 23:04 | R.HP ---
HISTORY AND PHYSICAL FACILITY: [facility] ENCOUNTER DATE AND TIME: 05/14/2022 23:02 (CDT) MR#: [id number] NAME RANJEET LIMON ADDRESS: [address] CITY: [place]IP [address] PHONE: DATE OF : 1955 AGE: 67 SSN# [id number] GENDER: Female MARITAL STATUS Single (Never ) PRE-HOSPITAL LIVING SETTING 01 - Home (private home/apt. board/care, assisted living, fdc, transitional living) PRE-HOSPITAL LIVING WITH Family/Relatives ENCOUNTER PHYSICIAN: Dr. Ramona Mchugh REFERRING DOCTOR: keisha Chinchilla DATE OF ADMISSION: 05/13/2022 15:50 (CDT) REFERRING FACILITY [facility] HOME TYPE AND DETAILS: Type of home: single family house # of levels in the residence: 1 # of steps within the residence: 0 # of steps to enter the residence: 0 ADMISSION DIAGNOSIS: Cerebral infarction due to unspecified occlusion or stenosis of right posterior cerebral artery (I63. 531) ONSET DATE: 05/09/2022 PRIMARY DIAGNOSIS-RELATED SURGERIES: None SECONDARY/COMORBID DIAGNOSES (TIERED): - Tier 3 Morbid (severe) obesity due to excess calories (E66.01) - Non-Tiered Type 2 diabetes mellitus (E11) Hyperlipidemia, unspecified (E78.5) Essential (primary) hypertension (I10) HISTORY OF PRESENT ILLNESS (HPI): Pt. is a 67 yo Right-handed HF. On 05/09/2022 Pt. presented to [facility] with sudden onset of left-side weakness. On 05/09/2022 she was admitted to [facility] with diagnosis Cerebral infarction due to uns pecified occlusion or stenosis of right posterior cerebral artery (I63.531). Her impairment category is Stroke 01 - Left Body (Right Brain) (01.1). Pre-morbidly, Pt. was independent/mod-I in Locomotion and Self-Care; and she had good Safety Awarenes s, Balance, Transfers Control, Sphincter Control, and Endurance. Currently, she has deficits of Locomotion, Safety Awareness, Balance, Transfers Control, Sphincter Co ntrol, Endurance, and Self-Care. Pt. is now referred to [facility] for acute in-patient rehabilitation in order to maximize patient's functional independence in activities of daily living, strength, ROM, and mobi lity. Patient has realistic goal of being discharged at assistance level 6-Dayana to reside at Home with Fam doug/Relatives. MEDICATION ALLERGIES: No Known Drug Allergies (NKDA) ENVIRONMENTAL ALLERGIES: - Substance Allergies None Known - Other Allergies None Known PAST MEDICAL HISTORY: Essential (primary) hypertension (I10) Hyperlipidemia, unspecified (E78.5) Morbid (severe) obesity due to excess calories (E66.01) Type 2 diabetes mellitus (E11) Acute CVA PAST SURGICAL HISTORY: ELIANA Mastectomy SOCIAL HISTORY: - Home Living Family/Relatives REVIEW OF SYSTEMS: - Gen No Chills No Fatigue No Fever - Eyes No Double Vision No itchiness - ENMT No Difficulty Swallowing - CVS No Chest Discomfort No Chest Pain No Fatigue No Weight Gain - Resp No Cough No Shortness of Breath - GI Continent No Abdominal Pain No Constipation No Diarrhea - Continent No Kidney Pain No Painful Urination No Urinary Urgency - MSK No Joint Pain No Muscle Cramps No Stiffness - Skin No Itching No Rash No Suspicious Lesions - Neuro No Coordination Difficulty No Difficulty with Concentration No Memory Loss No Seizures No Weakness - Psych No Anxiety No Depression No HIV Exposure No Persistent Infections No Seasonal Allergies - Endo No Cold/Heat Intolerance No Excessive Hunger No Excessive Thirst No Excessive Urination PHYSICAL EXAM - Gen Alert and awake Lying in bed No apparent distress Oriented to: person, time, and place - Vital Signs Temperature: 97.5 F SBP/DBP: 151/76 Pulse: 83 Resp: 20 Vital signs stable, afebrile - CVS RRR VITAL SIGNS Temperature: 97.5 F SBP/DBP: 151/76 Pulse: 83 Resp: 20 Vital signs stable, afebrile 05/10/2022 NURSING: - Shower allowing shower - Lab Results blood Sugar Check ACHS - Bladder care per protocol - Skin care per protocol PRECAUTIONS: - Weight Bearing Precaution WBAT left LE ACTIVITIES OOB only with supervision QI SCORES: - Self-Care A. Eating 04-Supervision or touching assistance B. Oral hygiene 04-Supervision or touching assistance C. Toileting hygiene 02-Substantial/maximal assistance E. Shower/bathe self 02-Substantial/maximal assistance F. Upper body dressing 02-Substantial/maximal assistance G. Lower body dressing 02-Substantial/maximal assistance H. Putting on/taking off footwear 02-Substantial/maximal assistance - Mobility A. Roll left and right 88-Not attempted due to medical condition or safety concerns B. Sit to lying 02-Substantial/maximal assistance C. Lying to sitting on side of bed 02-Substantial/maximal assistance D. Sit to stand 02-Substantial/maximal assistance E. Chair/jxo-gl-kuxvt transfer 88-Not attempted due to medical condition or safety concerns F. Toilet transfer 88-Not attempted due to medical condition or safety concerns G. Car transfer 88-Not attempted due to medical condition or safety concerns I. Walk 10 feet 88-Not attempted due to medical condition or safety concerns J. Walk 50 feet with two turns 88-Not attempted due to medical condition or safety concerns K. Walk 150 feet 88-Not attempted due to medical condition or safety concerns L. Walking 10 feet on uneven surfaces 88-Not attempted due to medical condition or safety concerns M. 1 step (curb) 88-Not attempted due to medical condition or safety concerns N. 4 steps 88-Not attempted due to medical condition or safety concerns O. 12 steps 88-Not attempted due to medical condition or safety concerns P. Picking up object 88-Not attempted due to medical condition or safety concerns R. Wheel 50 feet with two turns 09-Not applicable S. Wheel 150 feet 09-Not applicable - Bladder and Bowel Bladder continence 2-Incontinent less than daily Bowel continence 2-Frequently incontinent - Endurance Poor - Balance Good - Safety Awareness Fair CURRENT FUNC. DEFICITS: Self-Care, Endurance, Safety Awareness, and Mobility MEDICATIONS: - Other See attached MAR (Medication Administration Record) ASSESSMENT: Pt. is a 67 yo Right-handed HF.On 05/09/2022 Pt. presented to [facility] with sudden onset of left-side weakness.On 05/09/2022 she was admitted to [facility] with diagnosis Cerebra l infarction due to unspecified occlusion or stenosis of right posterior cerebral artery (I63.531).He r impairment category is Stroke 01 - Left Body (Right Brain) (01.1).Pre-morbidly, Pt. was independen t/mod-I in Locomotion and Self-Care; and she had good Safety Awareness, Balance, Transfers Control, S phincter Control, and Endurance.Currently, she has deficits of Locomotion, Safety Awareness, Balance, Transfers Control, Sphincter Control, Endurance, and Self-Care.Pt. is now referred to [facility] for acute in-patient rehabilitation in order to maximize patient's functional ind ependence in activities of daily living, strength, ROM, and mobility.- Rehab Goal Patient has realistic goal of being discharged at assistance level 6-Dayana to reside at Home with Fam doug/Relatives. for Dementia, TBI, Stroke, or others - Physical Therapy Inability to transfer - to improve, our physical therapists will perform initial evaluation of pt's s tatus upon admission and devise an individualized program for Bed mobility Need for home safety evaluation - to improve, our physical therapists will perform initial evaluation of pt's status upon admission and devise an individualized program for Home Evaluation Need in caregiver upon discharge - to improve, our physical therapists will perform initial evaluatio n of pt's status upon admission and devise an individualized program for Caregiver Training New precaution - to improve, our physical therapists will perform initial evaluation of pt's status u gnee admission and devise an individualized program for Patient precaution education Poor balance - to improve, our physical therapists will perform initial evaluation of pt's status upo n admission and devise an individualized program for Balance Training Poor endurance - to improve, our physical therapists will perform initial evaluation of pt's status u gene admission and devise an individualized program for Endurance Training Weakness - to improve, our physical therapists will perform initial evaluation of pt's status upon ad mission and devise an individualized program for Aquatic Therapy, Neuromuscular Reeducation, and Stre ngthening Achieving independence - to improve, our physical therapists will perform initial evaluation of pt's status upon admission and devise an individualized program for Community Reintegration Activities - Occupational Therapy ADL deficits - to improve, our occupation therapists will perform initial evaluation of pt's status u gene admission and devise an individualized program for Bathing, Bed mobility, Community Reintegration , Cooking, Dressing, Eating, Fine Motor Skills, Grooming, Homemaking, Kitchen Mobility, Laundry, Betty ent Education, Safety Awareness, Splinting - Positioning, Transfers(Toilet, Tub, Shower), and Wheel C hair Management Need for career based intervention coordinator - to improve, our occupation therapists will perform initial evaluation of pt's s tatus upon admission and devise an individualized program for Caregiver Training Weakness - to improve, our occupation therapists will perform initial evaluation of pt's status upon admission and devise an individualized program for Aquatic Therapy, Balance, Endurance, UE ROM, and U E strengthening MEDICAL PLAN: - Diet Type Start Regular - Diet - Liquid Texture Start Regular - Tube Feed Start N/A - Lab Results blood Sugar Check ACHS - Bladder care per protocol - Weight Bearing Precaution WBAT left LE - Skin care per protocol - Other See attached MAR (Medication Administration Record) - Diet - Solid Texture Regular - Shower shower DISCHARGE PLAN: - Estimated Length of Stay (days) 17. - Consensus on plan Discharge plan has been discussed with primary caregiver. Patient/Family is in agreement with the barry n. Primary caregiver is in agreement with the plan. - Patient/Family Goals Return home independently. - Planned Living Setting Upon Discharge Home, to live with Family/Relatives. Transitional Living. SIGNATURE PANEL: (CDT)
[2022-05-15 06:50] LABS: Absolute Lymphocytes (CBC) 4.9 K/uL (0.7-4.9); Hematocrit 37.9 % (36.0-45.0); Lymphocytes % 29.5 % (15.3-44.8); MCV 89.6 fL (80-100); MPV 9.4 fL (7.6-11.3); RBC Red Blood Cell Count 4.23 M/uL (3.86-4.86)
[2022-05-15] MEDS: INSULIN -REGULAR HUMAN 50 UNIT/0.5 ML ML SQ SCH ×4 (07:11→20:08)
[2022-05-15] MEDS: DOCUSATE NA 100 MG CAP PO SCH ×2 (08:51→19:03)
[2022-05-15] MEDS: ASPIRIN EC 81 MG TAB PO SCH (08:51)
[2022-05-15] MEDS: FOLIC ACID 1 MG TABLET PO SCH (08:52)
[2022-05-15] MEDS: GLIMEPIRIDE 2 MG TABLET PO SCH (08:52)
[2022-05-15] MEDS: METFORMIN ER 500 MG TAB PO SCH ×2 (08:52→17:05)
[2022-05-15] MEDS: CLOPIDOGREL 75 MG TABLET PO SCH (08:52)
[2022-05-15] MEDS: LOSARTAN POTASSIUM 50 MG TABLET PO SCH (08:53)
[2022-05-15] MEDS: HYDROCODONE/APAP 5/325 MG TAB PO PRN ×2 (08:53→19:02)
[2022-05-15] MEDS: ENOXAPARIN 40 MG/0.4 ML SQ SCH (08:54)
[2022-05-15] MEDS: ATORVASTATIN 40 MG TAB PO SCH (19:03)
[2022-05-15] MEDS: NYSTATIN PWDR 100000 UNIT/GM TOP SCH (19:03)
[2022-05-16] MEDS: HYDROCODONE/APAP 5/325 MG TAB PO PRN ×4 (05:30→21:09)
[2022-05-16] MEDS: INSULIN -REGULAR HUMAN 50 UNIT/0.5 ML ML SQ SCH ×4 (07:30→21:00)
[2022-05-16] MEDS: DOCUSATE NA 100 MG CAP PO SCH ×2 (07:36→21:03)
[2022-05-16] MEDS: CLOPIDOGREL 75 MG TABLET PO SCH (07:36)
[2022-05-16] MEDS: NYSTATIN PWDR 100000 UNIT/GM TOP SCH ×2 (07:36→21:04)
[2022-05-16] MEDS: GLIMEPIRIDE 2 MG TABLET PO SCH (07:36)
[2022-05-16] MEDS: METFORMIN ER 500 MG TAB PO SCH ×3 (07:36→16:51)
[2022-05-16] MEDS: LOSARTAN POTASSIUM 50 MG TABLET PO SCH (07:37)
[2022-05-16] MEDS: FOLIC ACID 1 MG TABLET PO SCH (07:37)
[2022-05-16] MEDS: ENOXAPARIN 40 MG/0.4 ML SQ SCH (07:37)
[2022-05-16] MEDS: CRANBERRY FRUIT EXTRACT 200 MG CAP PO SCH ×2 (07:37→21:03)
[2022-05-16] MEDS: ASPIRIN EC 81 MG TAB PO SCH (07:39)
[2022-05-16] MEDS: NITROFURAN MACRO 100 MG CAP PO SCH ×2 (09:18→21:03)
[2022-05-16] MEDS ORDERED: NITROFURAN MACRO 100 MG CAP PO SCH (20:00)
[2022-05-16] MEDS: ATORVASTATIN 40 MG TAB PO SCH (21:03)
[2022-05-17] MEDS: HYDROCODONE/APAP 5/325 MG TAB PO PRN ×2 (05:34→21:00)
[2022-05-17] MEDS: ENOXAPARIN 40 MG/0.4 ML SQ SCH (07:26)
[2022-05-17] MEDS: CRANBERRY FRUIT EXTRACT 200 MG CAP PO SCH ×2 (07:27→20:59)
[2022-05-17] MEDS: NYSTATIN PWDR 100000 UNIT/GM TOP SCH ×2 (07:27→21:00)
[2022-05-17] MEDS: GLIMEPIRIDE 2 MG TABLET PO SCH (07:27)
[2022-05-17] MEDS: LOSARTAN POTASSIUM 50 MG TABLET PO SCH (07:28)
[2022-05-17] MEDS: METFORMIN ER 500 MG TAB PO SCH ×2 (07:28→16:33)
[2022-05-17] MEDS: DOCUSATE NA 100 MG CAP PO SCH ×2 (07:28→20:59)
[2022-05-17] MEDS: FOLIC ACID 1 MG TABLET PO SCH (07:28)
[2022-05-17] MEDS: NITROFURAN MACRO 100 MG CAP PO SCH ×2 (07:28→20:59)
[2022-05-17] MEDS: CLOPIDOGREL 75 MG TABLET PO SCH (07:28)
[2022-05-17] MEDS: ASPIRIN EC 81 MG TAB PO SCH (07:28)
[2022-05-17] MEDS: INSULIN -REGULAR HUMAN 50 UNIT/0.5 ML ML SQ SCH ×4 (07:29→21:00)
[2022-05-17] MEDS: POLYETHYL GLY 3350 17 GM/DOSE PO PRN (13:13)
--- NOTE | 2022-05-17 19:42 | PAPE ---
POST ADMISSION PHYSICIAN EVALUATION PATIENT: [facility] MR# [id number] REFERRING DOCTOR keisha Chinchilla EVALUATION DATE AND TIME 05/17/2022 19:38 (CDT) NAME RANJEET LIMON DATE OF 1955 AGE 67 PHONE N# [id number] GENDER female EVALUATING PHYSICIAN Dr. Kurt Deng M.D. ADMISSION DIAGNOSIS: Cerebral infarction due to unspecified occlusion or stenosis of right posterior cerebral artery (I63. 531) ONSET DATE 05/09/2022 SECONDARY/COMORBID DIAGNOSES TIERED: - Tier 3 Morbid (severe) obesity due to excess calories (E66.01) - Non-Tiered Type 2 diabetes mellitus (E11) Hyperlipidemia, unspecified (E78.5) Essential (primary) hypertension (I10) POST-ADMISSION FUNCTIONAL/MEDICAL STATUS: - Bladder Same accident frequency: 7-Ind - No accidents in the past 7 days - Bowel Same accident frequency: 7-Ind - No accidents in the past 7 days - Walking Same score based on distance walked: 0(N/A) - Wheelchair Same score based on distance traveled: 0(N/A) STATUS CHANGE EVALUATION: No change in Functional or Medical Status is identified compared with Pre-Admission screening. PATIENT NEEDS CLOSE MEDICAL SUPERVISION BY A REHABILITATION PHYSICIAN FOR: Coordination of Treatment Team Diabetes Management Medical and Co-Morbidity Management Wound Care Bowel and Bladder Management Post-Op Complications Pain Management PATIENT REQUIRES 24X7 REHAB NURSING FOR MEDICAL AND FUNCTIONAL MGT. OF THE FOLLOWING DEFICITS: Patient requires 24x7 Rehabilitation Nursing for: Pain Issues, Identifying and preventing risk factor s, Monitoring and reporting current medical conditions, Assisting with ambulation and transfer, Shania ting with all ADL-s, Teaching patients about disease process and medications, Family teaching, Provid ing safe environment, Bowel and Bladder Issues, Skin Integrity, and Medication Management PATIENT REQUIRES INTENSIVE, COORDINATED INTERDISCIPLINARY APPROACH TO REHAB: Patient needs Dietary and Nutrition Services for: Adequate Nutrition, Nutritional Supplements, and Nu tritional Education Patient needs Financial Assistant and/or Case Management for: Discharge Planning, Arranging Home Equipmen t or Services, and Family Interventions LIST OF IDENTIFIED AND POTENTIAL PROBLEMS: Alteration in leisure activities Bladder, Incontinence Blood Pressure, Hypertension/hypotension Issues Bowel, Incontinence Diabetes, Hyperglycemia/hypoglycemia Issues Infection, Actual or Potential Mobility Impaired Pain, Alteration in Comfort Self Care Deficit Skin Integrity, Actual or Potential Urinary Tract Infection (UTI), Actual or Potential RISK FOR COMPLICATIONS - DVT Active and Passive ROM exercises. Administer medications per MD order. Assist patient with frequent p osition changes. Elevate BLE. - Skin Breakdown Encourage ambulation as tolerated. Repositioning q 2 hours. Use of pillows or foam wedges while in be d. - Pain Anticipate the need for pain medication for optimal pain managment. Assist patient with frequent posi tion changes at least every 2 hours. Assess pt for pain and Administer prescribed pain medication as needed. Educate patient on relaxation and deep breathing techniques. - Falls Assess for medication side effects. Maintain call light within patient reach for easy access to nursi ng assistance. Provide assistance getting out of bed and with ambulation. Provide assistive devices. - Stroke Assess/ Monitor and maintain patient pain level. Assess/ Monitor patient blood pressure. - Infection Assess for s/s of infection. Assess pt response to antibiotics. Monitor pt v/s. INTERVENTIONS - CVA Provide aggressive PT, OT, and Speech therapy to improve pt functionality. Regularly assess Neuro sta tus. Provide Safety measures. - Type 2 Diabetes Assess LE for temperature, pulses, color, and sensation. Assess for signs of hyperglycemia. Monitor b lood glucose. Monitor pt BP. Monitor the patients [id number]-higejisirspg hemoglobin. Weight daily. - Hyperlipidemia Administer medications indicated by physician and monitor for effectiveness. Implement healthy diet. Promote physical activity. Monitor blood pressure and maintain within parameters through administerin g routine medication. Monitor LDL level and treat with prescribed medications. - Wound care Assess/Monitor multiple MARYLU drains. Administer wound care per MD orders. Assess/Monitor pt of s/s of i nfection. PATIENT COULD BE AT RISK FOR COMPLICATIONS FROM ADVERSE MEDICAL CONDITIONS DUE TO HIS/HER COMORBIDITI ES AND THE RIGORS OF THE INTENSIVE REHABILLITATION PROGRAM. METHODS OR INTERVENTIONS TO AVOID COMPLIC ATIONS INCLUDE: - Bleeding Assess lab values and manage abnormalities. Nursing to teach precautions for anti-coagulation therapy . Stroke patients assessed for lethargy or change in status. Wound to be assessed every shift. - Infection Clinical staff to assess and manage the signs and symptoms of infection including fever, redness, war mth, etc. - Urinary Tract Infection - Aspiration Clinical staff will assess and manage coughing, drooling, congestion. - Falls Patient will be evaluated for Fall Precautions and will be placed on Fall Precautions as indicated pe r protocol. - Skin Breakdown Nursing will assess skin daily using assessment tool and will place on Skin Breakdown Precautions as indicated per protocol. - Pain Clinical staff may employ non-medication methods such as massage, distraction, decrease stimulus, etc . as needed. Clinical staff will assess patient's pain level every shift per protocol to assess and e nsure pain management effectiveness. Medications will be given and the pain level re-assessed. PRELIMINARY PLAN OF CARE: - Physical Therapy Patient needs Physical Therapy for a daily minimum of 1.5 hours at least 5 out of 7 days, to improve: Mobility, Strengthening, Transfers, Stretching, ROM, Endurance, Ability to manage stairs, Gait, and Balance. - Speech Therapy Patient needs Speech Therapy for a daily minimum of 0.5 hours at least 5 out of 7 days, to improve: S wallowing, Cognition, Language Skills, and Compensatory Strategies. - Rehabilitation Nursing Patient requires 24x7 Rehabilitation Nursing for: Pain Issues, Identifying and preventing risk factor s, Monitoring and reporting current medical conditions, Assisting with ambulation and transfer, Shania ting with all ADL-s, Teaching patients about disease process and medications, Family teaching, Provid ing safe environment, Bowel and Bladder Issues, Skin Integrity, and Medication Management. Patient needs Financial Assistant and/or Case Management for: Discharge Planning, Arranging Home Equipmen t or Services, and Family Interventions. - Dietary and Nutrition Services Patient needs Dietary and Nutrition Services for: Adequate Nutrition, Nutritional Supplements, and Nu tritional Education. - Occupational Therapy Patient needs Occupational Therapy for a daily minimum of 1.5 hours at least 5 out of 7 days, to impr ove Activities of Daily Living, including: Eating, Grooming, Bathing, Dressing, Toileting, Toilet Tra nsfers, Community Reintegration, Higher functional activities, Adaptive Equipment, Splinting, Househo ld Tasks, and Other activities as determined. QI SCORES: - Self-Care A. Eating 04-Supervision or touching assistance B. Oral hygiene 04-Supervision or touching assistance C. Toileting hygiene 02-Substantial/maximal assistance E. Shower/bathe self 02-Substantial/maximal assistance F. Upper body dressing 02-Substantial/maximal assistance G. Lower body dressing 02-Substantial/maximal assistance H. Putting on/taking off footwear 02-Substantial/maximal assistance - Mobility A. Roll left and right 88-Not attempted due to medical condition or safety concerns B. Sit to lying 02-Substantial/maximal assistance C. Lying to sitting on side of bed 02-Substantial/maximal assistance D. Sit to stand 02-Substantial/maximal assistance E. Chair/gps-uf-livoe transfer 88-Not attempted due to medical condition or safety concerns F. Toilet transfer 88-Not attempted due to medical condition or safety concerns G. Car transfer 88-Not attempted due to medical condition or safety concerns I. Walk 10 feet 88-Not attempted due to medical condition or safety concerns J. Walk 50 feet with two turns 88-Not attempted due to medical condition or safety concerns K. Walk 150 feet 88-Not attempted due to medical condition or safety concerns L. Walking 10 feet on uneven surfaces 88-Not attempted due to medical condition or safety concerns M. 1 step (curb) 88-Not attempted due to medical condition or safety concerns N. 4 steps 88-Not attempted due to medical condition or safety concerns O. 12 steps 88-Not attempted due to medical condition or safety concerns P. Picking up object 88-Not attempted due to medical condition or safety concerns R. Wheel 50 feet with two turns 09-Not applicable S. Wheel 150 feet 09-Not applicable - Bladder and Bowel Bladder continence 2-Incontinent less than daily Bowel continence 2-Frequently incontinent - Endurance Poor - Balance Good - Safety Awareness Fair POTENTIAL FUNCTIONAL GOALS FOR PATIENT TO ACHIEVE BY DISCHARGE: - Safety Precaution Patient will remain free from falls or injury at time of discharge. - Bed Mobility Patient will perform bed mobility at 4-Chance level of assistance. - Transfers Patient will complete transfers from bed to chair at 4-Chance level of assistance. - Mobility Patient will ambulate 150 ft with 4-Chance level of assistance with RW. PATIENT REHAB POTENTIAL Delicia LIMON is able and expected to receive 3 hours of individualized therapy daily on at least 5 of heaven ry 7 days JanePhillip LIMON's prognosis for significant practical improvement within a reasonable period of time appears Good Expected level of measurable improvement will be of a practical value to Delicia LIMON's functional capaci ty or adaptations to impairments Has a viable Discharge Plan Medically appropriate; condition is sufficiently stable to participate in intensive rehab program DISCHARGE PLAN: - Estimated Length of Stay (days) 17. - Consensus on plan Discharge plan has been discussed with primary caregiver. Patient/Family is in agreement with the barry n. Primary caregiver is in agreement with the plan. - Patient/Family Goals Return home independently. - Planned Living Setting Upon Discharge Home, to live with Family/Relatives. Transitional Living. CONCLUSION ON REHABILITATION NECESSITY: I have evaluated patient's pre-admission functional status and, comparing it to the patient's post-ad mission functional status now, I conclude that the pre-admission assessment was accurate. Patient's c ondition on admission supports the medical necessity of admission to [facility]. It is safe to proceed with patient's therapy program. SIGNATURE PANEL: (CDT)
--- NOTE | 2022-05-17 19:56 | R.PN ---
PROGRESS NOTES ENCOUNTER DATE AND TIME: 05/17/2022 19:49 (CDT) NAME RANJEET LIMON DATE OF : 1955 DATE OF ADMISSION: 05/13/2022 15:50 (CDT) Cerebral infarction due to unspecified occlusion or stenosis of right posterior cerebral artery (I63. 531)SUBJECTIVE: Pt denied any Shortness of Breath. Pt denied any depression. VITAL SIGNS Temperature: 97.2 F SBP/DBP: 144/65 Pulse: 68 Resp: 15 MEDICATION ALLERGIES: No Known Drug Allergies (NKDA) ENVIRONMENTAL ALLERGIES: - Substance Allergies None Known - Other Allergies None Known NURSING: - Shower allowing shower - Lab Results blood Sugar Check ACHS - Bladder care per protocol - Skin care per protocol PRECAUTIONS: - Weight Bearing Precaution WBAT left LE ACTIVITIES OOB only with supervision THERAPIES: - Dietary and Nutrition Adequate Nutrition. Nutritional Education. Nutritional Supplements. - Occupational Therapy Cognitive Retraining. Patient needs Occupational Therapy for a daily minimum of 1.5 hours at least 5 out of 7 days, to improve Activities of Daily Living, including: Eating, Grooming, Bathing, Dressing, Toileting, Toilet Transfers, Community Reintegration, Higher functional activities, Adaptive Equipme nt, Splinting, Household Tasks, and Other activities as determined. Visual Perceptual Training. - Speech Therapy Cognitive Training. Expressive Language Skills. Memory Strategies. Patient needs Speech Therapy for a daily minimum of 0.5 hours at least 5 out of 7 days, to improve: Swallowing, Cognition, Language Ski lls, and Compensatory Strategies. Receptive Language Skills. Speech Intelligibility Training. - Physical Therapy Patient needs Physical Therapy for a daily minimum of 1.5 hours at least 5 out of 7 days, to improve: Mobility, Strengthening, Transfers, Stretching, ROM, Endurance, Ability to manage stairs, Gait, and Balance. PHYSICAL EXAM - Gen Alert and awake Lying in bed No apparent distress Oriented to: person, time, and place - Skin No skin breakdown. Normacephalic - Eyes No abnormalities - ENMT No abnormalities - Neck No abnormalities - CVS RRR - Chest No abnormalities - Abd Soft - GI Non distended Deferred - No abnormalities - Ext Mild bilateral lower extremity edema. - MSK 4+/5 weakness in both lower extremities. - Neuro Incoordination, left sided weakness and dysmetria, unsteady gait - Psych No abnormalities ASSESSMENT: Pt. is a 67 yo Right-handed HF.On 05/09/2022 Pt. presented to [facility] with sudden onset of left-side weakness.On 05/09/2022 she was admitted to [facility] with diagnosis Cerebra l infarction due to unspecified occlusion or stenosis of right posterior cerebral artery (I63.531).He r impairment category is Stroke 01 - Left Body (Right Brain) (01.1).Pre-morbidly, Pt. was independen t/mod-I in Locomotion and Self-Care; and she had good Safety Awareness, Balance, Transfers Control, S phincter Control, and Endurance.Currently, she has deficits of Locomotion, Safety Awareness, Balance, Transfers Control, Sphincter Control, Endurance, and Self-Care.Pt. is now referred to [facility] for acute in-patient rehabilitation in order to maximize patient's functional ind ependence in activities of daily living, strength, ROM, and mobility.- Rehab Goal Patient has realistic goal of being discharged at assistance level 6-Dayana to reside at Home with Fam doug/Relatives. MDM/PLAN: - Physical Therapy Inability to transfer - to improve, our physical therapists will perform initial evaluation of pt's status upon admission and devise an individualized program for Bed mobility Need for home safety evaluation - to improve, our physical therapists will perform initial evaluatio n of pt's status upon admission and devise an individualized program for Home Evaluation Need in caregiver upon discharge - to improve, our physical therapists will perform initial evaluati on of pt's status upon admission and devise an individualized program for Caregiver Training New precaution - to improve, our physical therapists will perform initial evaluation of pt's status upon admission and devise an individualized program for Patient precaution education Poor balance - to improve, our physical therapists will perform initial evaluation of pt's status up on admission and devise an individualized program for Balance Training Poor endurance - to improve, our physical therapists will perform initial evaluation of pt's status upon admission and devise an individualized program for Endurance Training Weakness - to improve, our physical therapists will perform initial evaluation of pt's status upon a dmission and devise an individualized program for Aquatic Therapy, Neuromuscular Reeducation, and Str engthening Achieving independence - to improve, our physical therapists will perform initial evaluation of pt's status upon admission and devise an individualized program for Community Reintegration Activities - Occupational Therapy ADL deficits - to improve, our occupation therapists will perform initial evaluation of pt's status upon admission and devise an individualized program for Bathing, Bed mobility, Community Reintegratio n, Cooking, Dressing, Eating, Fine Motor Skills, Grooming, Homemaking, Kitchen Mobility, Laundry, Pat ient Education, Safety Awareness, Splinting - Positioning, Transfers(Toilet, Tub, Shower), and Wheel Chair Management Need for care support representative - to improve, our occupation therapists will perform initial evaluation of pt's status upon admission and devise an individualized program for Caregiver Training Weakness - to improve, our occupation therapists will perform initial evaluation of pt's status upon admission and devise an individualized program for Aquatic Therapy, Balance, Endurance, UE ROM, and UE strengthening - Other See attached MAR (Medication Administration Record) - Diet Type Continue Regular - Diet - Liquid Texture Continue Regular - Tube Feed Continue N/A - Lab Results blood Sugar Check ACHS - Bladder care per protocol - Weight Bearing Precaution WBAT left LE - Skin care per protocol - Diet - Solid Texture Continue Regular - Shower allowing shower for Dementia, TBI, Stroke, or others FUNCTIONAL STATUS: UPDATED AT WEEKLY TEAM CONFERENCE - Bladder Same accident frequency: 7-Ind - No accidents in the past 7 days - Bowel Same accident frequency: 7-Ind - No accidents in the past 7 days - Walking Same score based on distance walked: 0(N/A) - Wheelchair Same score based on distance traveled: 0(N/A) FUNCTIONAL STATUS: - Self-Care A. Eating Ind B. Grooming Ind C. Bathing Chance D. Dressing - Upper Chance E. Dressing - Lower Chance F. Toileting Chance - Sphincter Control G. Bladder control Dayana H. Bowel control Dayana - Transfers Control I. Bed/Chair/Wheelchair Chance J. Toilet Chance K. Tub/Shower modA - Locomotion L. Walk/Wheelchair (B) Chance M. Stairs modA - Communication N. Comprehension (B) Dayana O. Expression (B) Dayana - Social Cognition P. Social Interaction Dayana Q. Problem Solving Dayana R. Memory Dayana - Endurance Good - Balance Fair - Safety Awareness Good QI SCORES: - Self-Care A. Eating 04-Supervision or touching assistance B. Oral hygiene 04-Supervision or touching assistance C. Toileting hygiene 02-Substantial/maximal assistance E. Shower/bathe self 02-Substantial/maximal assistance F. Upper body dressing 02-Substantial/maximal assistance G. Lower body dressing 02-Substantial/maximal assistance H. Putting on/taking off footwear 02-Substantial/maximal assistance - Mobility A. Roll left and right 88-Not attempted due to medical condition or safety concerns B. Sit to lying 02-Substantial/maximal assistance C. Lying to sitting on side of bed 02-Substantial/maximal assistance D. Sit to stand 02-Substantial/maximal assistance E. Chair/yoe-wr-rlttt transfer 88-Not attempted due to medical condition or safety concerns F. Toilet transfer 88-Not attempted due to medical condition or safety concerns G. Car transfer 88-Not attempted due to medical condition or safety concerns I. Walk 10 feet 88-Not attempted due to medical condition or safety concerns J. Walk 50 feet with two turns 88-Not attempted due to medical condition or safety concerns K. Walk 150 feet 88-Not attempted due to medical condition or safety concerns L. Walking 10 feet on uneven surfaces 88-Not attempted due to medical condition or safety concerns M. 1 step (curb) 88-Not attempted due to medical condition or safety concerns N. 4 steps 88-Not attempted due to medical condition or safety concerns O. 12 steps 88-Not attempted due to medical condition or safety concerns P. Picking up object 88-Not attempted due to medical condition or safety concerns R. Wheel 50 feet with two turns 09-Not applicable S. Wheel 150 feet 09-Not applicable - Bladder and Bowel Bladder continence 2-Incontinent less than daily Bowel continence 2-Frequently incontinent - Endurance Poor - Balance Good - Safety Awareness Fair CURRENT FUNC. DEFICITS: Self-Care, Endurance, Safety Awareness, and Mobility SIGNATURE PANEL: (CDT)
[2022-05-17] MEDS: MAGNESIUM OXIDE 400 MG TAB PO SCH (21:00)
[2022-05-17] MEDS: DOCUSATE NA/SENNA CONC 1 TAB PO PRN (21:00)
[2022-05-17] MEDS: ATORVASTATIN 40 MG TAB PO SCH (21:00)
[2022-05-18] MEDS: HYDROCODONE/APAP 5/325 MG TAB PO PRN ×2 (05:24→18:33)
[2022-05-18] MEDS: INSULIN -REGULAR HUMAN 50 UNIT/0.5 ML ML SQ SCH ×4 (07:16→20:02)
[2022-05-18] MEDS: FOLIC ACID 1 MG TABLET PO SCH (08:02)
[2022-05-18] MEDS: ENOXAPARIN 40 MG/0.4 ML SQ SCH (08:02)
[2022-05-18] MEDS: NITROFURAN MACRO 100 MG CAP PO SCH (08:02)
[2022-05-18] MEDS: MAGNESIUM OXIDE 400 MG TAB PO SCH ×2 (08:02→20:02)
[2022-05-18] MEDS: GLIMEPIRIDE 2 MG TABLET PO SCH (08:03)
[2022-05-18] MEDS: CLOPIDOGREL 75 MG TABLET PO SCH (08:03)
[2022-05-18] MEDS: METFORMIN ER 500 MG TAB PO SCH ×2 (08:03→17:00)
[2022-05-18] MEDS: CRANBERRY FRUIT EXTRACT 200 MG CAP PO SCH ×2 (08:03→20:01)
[2022-05-18] MEDS: LOSARTAN POTASSIUM 50 MG TABLET PO SCH (08:04)
[2022-05-18] MEDS: DOCUSATE NA 100 MG CAP PO SCH ×2 (08:04→20:02)
[2022-05-18] MEDS: ASPIRIN EC 81 MG TAB PO SCH (08:04)
[2022-05-18] MEDS: NYSTATIN PWDR 100000 UNIT/GM TOP SCH ×2 (08:05→20:02)
[2022-05-18] MEDS: ACETAMINOPHEN 325 MG TABLET PO PRN (18:43)
[2022-05-18 19:27] LABS: Absolute Lymphocytes (CBC) 4.9 K/uL (0.7-4.9); Hematocrit 39.4 % (36.0-45.0); Lymphocytes % 22.1 % (15.3-44.8); MCV 89.4 fL (80-100); MPV 9.4 fL (7.6-11.3); RBC Red Blood Cell Count 4.41 M/uL (3.86-4.86)
[2022-05-18] MEDS: ATORVASTATIN 40 MG TAB PO SCH (20:01)
--- NOTE | 2022-05-18 20:04 | R.PN ---
PROGRESS NOTES ENCOUNTER DATE AND TIME: 05/18/2022 19:57 (CDT) NAME RANJEET LIMON DATE OF : 1955 DATE OF ADMISSION: 05/13/2022 15:50 (CDT) Cerebral infarction due to unspecified occlusion or stenosis of right posterior cerebral artery (I63. 531)CHIEF COMPLAINT: Stroke with left sided weakness and incoordination and urinary tract infection SUBJECTIVE: Pt denied any Shortness of Breath. Pt denied any depression. She has a fever of 101.9 with positive UA, WBC 22.2, E-Coli sensitive to Zosyn. Now on Zosyn. Chest x -ray is pending. Glucose 90 to 122, prealumin 12.4. Ambulated 300' with CGA and hemiwalker. VITAL SIGNS Temperature: 97.6 F SBP/DBP: 124/60 Pulse: 68 Resp: 16 MEDICATION ALLERGIES: No Known Drug Allergies (NKDA) ENVIRONMENTAL ALLERGIES: - Substance Allergies None Known - Other Allergies None Known NURSING: - Shower allowing shower - Lab Results blood Sugar Check ACHS - Bladder care per protocol - Skin care per protocol PRECAUTIONS: - Weight Bearing Precaution WBAT left LE ACTIVITIES OOB only with supervision THERAPIES: - Dietary and Nutrition Adequate Nutrition. Nutritional Education. Nutritional Supplements. - Occupational Therapy Cognitive Retraining. Patient needs Occupational Therapy for a daily minimum of 1.5 hours at least 5 out of 7 days, to improve Activities of Daily Living, including: Eating, Grooming, Bathing, Dressing, Toileting, Toilet Transfers, Community Reintegration, Higher functional activities, Adaptive Equipme nt, Splinting, Household Tasks, and Other activities as determined. Visual Perceptual Training. - Speech Therapy Cognitive Training. Expressive Language Skills. Memory Strategies. Patient needs Speech Therapy for a daily minimum of 0.5 hours at least 5 out of 7 days, to improve: Swallowing, Cognition, Language Ski lls, and Compensatory Strategies. Receptive Language Skills. Speech Intelligibility Training. - Physical Therapy Patient needs Physical Therapy for a daily minimum of 1.5 hours at least 5 out of 7 days, to improve: Mobility, Strengthening, Transfers, Stretching, ROM, Endurance, Ability to manage stairs, Gait, and Balance. PHYSICAL EXAM - Gen Alert and awake Lying in bed No apparent distress Oriented to: person, time, and place - Skin No skin breakdown. Normacephalic - Eyes No abnormalities - ENMT No abnormalities - Neck No abnormalities - CVS RRR - Chest No abnormalities - Abd Soft - GI Non distended Deferred - No abnormalities - Ext Mild bilateral lower extremity edema. - MSK 4+/5 weakness in both lower extremities. - Neuro Incoordination, left sided weakness and dysmetria, unsteady gait - Psych No abnormalities ASSESSMENT: Pt. is a 67 yo Right-handed HF.On 05/09/2022 Pt. presented to [facility] with sudden onset of left-side weakness.On 05/09/2022 she was admitted to [facility] with diagnosis Cerebra l infarction due to unspecified occlusion or stenosis of right posterior cerebral artery (I63.531).He r impairment category is Stroke 01 - Left Body (Right Brain) (01.1).Pre-morbidly, Pt. was independen t/mod-I in Locomotion and Self-Care; and she had good Safety Awareness, Balance, Transfers Control, S phincter Control, and Endurance.Currently, she has deficits of Locomotion, Safety Awareness, Balance, Transfers Control, Sphincter Control, Endurance, and Self-Care.Pt. is now referred to [facility] for acute in-patient rehabilitation in order to maximize patient's functional ind ependence in activities of daily living, strength, ROM, and mobility.- Rehab Goal Patient has realistic goal of being discharged at assistance level 6-Dayana to reside at Home with Fam doug/Relatives. MDM/PLAN: - Physical Therapy Inability to transfer - to improve, our physical therapists will perform initial evaluation of pt's status upon admission and devise an individualized program for Bed mobility Need for home safety evaluation - to improve, our physical therapists will perform initial evaluatio n of pt's status upon admission and devise an individualized program for Home Evaluation Need in caregiver upon discharge - to improve, our physical therapists will perform initial evaluati on of pt's status upon admission and devise an individualized program for Caregiver Training New precaution - to improve, our physical therapists will perform initial evaluation of pt's status upon admission and devise an individualized program for Patient precaution education Poor balance - to improve, our physical therapists will perform initial evaluation of pt's status up on admission and devise an individualized program for Balance Training Poor endurance - to improve, our physical therapists will perform initial evaluation of pt's status upon admission and devise an individualized program for Endurance Training Weakness - to improve, our physical therapists will perform initial evaluation of pt's status upon a dmission and devise an individualized program for Aquatic Therapy, Neuromuscular Reeducation, and Str engthening Achieving independence - to improve, our physical therapists will perform initial evaluation of pt's status upon admission and devise an individualized program for Community Reintegration Activities - Occupational Therapy ADL deficits - to improve, our occupation therapists will perform initial evaluation of pt's status upon admission and devise an individualized program for Bathing, Bed mobility, Community Reintegratio n, Cooking, Dressing, Eating, Fine Motor Skills, Grooming, Homemaking, Kitchen Mobility, Laundry, Pat ient Education, Safety Awareness, Splinting - Positioning, Transfers(Toilet, Tub, Shower), and Wheel Chair Management Need for manager respiratory care - to improve, our occupation therapists will perform initial evaluation of pt's status upon admission and devise an individualized program for Caregiver Training Weakness - to improve, our occupation therapists will perform initial evaluation of pt's status upon admission and devise an individualized program for Aquatic Therapy, Balance, Endurance, UE ROM, and UE strengthening - Other See attached MAR (Medication Administration Record) - Diet Type Continue Regular - Diet - Liquid Texture Continue Regular - Tube Feed Continue N/A - Lab Results blood Sugar Check ACHS - Bladder care per protocol - Weight Bearing Precaution WBAT left LE - Skin care per protocol - Diet - Solid Texture Continue Regular - Shower allowing shower for Dementia, TBI, Stroke, or others FUNCTIONAL STATUS: UPDATED AT WEEKLY TEAM CONFERENCE - Bladder Same accident frequency: 7-Ind - No accidents in the past 7 days - Bowel Same accident frequency: 7-Ind - No accidents in the past 7 days - Walking Same score based on distance walked: 0(N/A) - Wheelchair Same score based on distance traveled: 0(N/A) FUNCTIONAL STATUS: - Self-Care A. Eating Ind B. Grooming Ind C. Bathing Chance D. Dressing - Upper Chance E. Dressing - Lower Chance F. Toileting Chance - Sphincter Control G. Bladder control Dayana H. Bowel control Dayana - Transfers Control I. Bed/Chair/Wheelchair Chance J. Toilet Chance K. Tub/Shower modA - Locomotion L. Walk/Wheelchair (B) Chance M. Stairs modA - Communication N. Comprehension (B) Dayana O. Expression (B) Dayana - Social Cognition P. Social Interaction Dayana Q. Problem Solving Dayana R. Memory Dayana - Endurance Good - Balance Fair - Safety Awareness Good QI SCORES: - Self-Care A. Eating 04-Supervision or touching assistance B. Oral hygiene 04-Supervision or touching assistance C. Toileting hygiene 02-Substantial/maximal assistance E. Shower/bathe self 02-Substantial/maximal assistance F. Upper body dressing 02-Substantial/maximal assistance G. Lower body dressing 02-Substantial/maximal assistance H. Putting on/taking off footwear 02-Substantial/maximal assistance - Mobility A. Roll left and right 88-Not attempted due to medical condition or safety concerns B. Sit to lying 02-Substantial/maximal assistance C. Lying to sitting on side of bed 02-Substantial/maximal assistance D. Sit to stand 02-Substantial/maximal assistance E. Chair/ahl-wl-tjgnj transfer 88-Not attempted due to medical condition or safety concerns F. Toilet transfer 88-Not attempted due to medical condition or safety concerns G. Car transfer 88-Not attempted due to medical condition or safety concerns I. Walk 10 feet 88-Not attempted due to medical condition or safety concerns J. Walk 50 feet with two turns 88-Not attempted due to medical condition or safety concerns K. Walk 150 feet 88-Not attempted due to medical condition or safety concerns L. Walking 10 feet on uneven surfaces 88-Not attempted due to medical condition or safety concerns M. 1 step (curb) 88-Not attempted due to medical condition or safety concerns N. 4 steps 88-Not attempted due to medical condition or safety concerns O. 12 steps 88-Not attempted due to medical condition or safety concerns P. Picking up object 88-Not attempted due to medical condition or safety concerns R. Wheel 50 feet with two turns 09-Not applicable S. Wheel 150 feet 09-Not applicable - Bladder and Bowel Bladder continence 2-Incontinent less than daily Bowel continence 2-Frequently incontinent - Endurance Poor - Balance Good - Safety Awareness Fair CURRENT FUNC. DEFICITS: Self-Care, Endurance, Safety Awareness, and Mobility SIGNATURE PANEL: (CDT)
[2022-05-18] MEDS: PIPER TAZO 3.375 GM in NA CHLORIDE 0.9% 100 ML IV SCH (20:05)
--- NOTE | 2022-05-18 20:08 | RAD REPORT ---
EXAM DESCRIPTION: RAD - Chest Single View - 05/18/2022 7:35 pm CLINICAL HISTORY: r/o pneumonia Chest pain. COMPARISON: Chest Single View dated 05/11/2022; Chest Single View dated 05/09/2022; Chest Pa And Lat ( 2 Views) dated 05/03/2022; Chest Single View dated 07/08/2021 FINDINGS: Portable technique limits examination quality. Bilateral pulmonary opacities are again seen, which may indicate pulmonary edema or pneumonia and jenna ear slightly progressive since the comparative chest radiograph. The heart is mildly prominent in siz e. Bilateral skin mauro surgical drain is noted. IMPRESSION: Mild worsening in lung aeration since comparative study.
[2022-05-18] MEDS ORDERED: NA CHLORIDE 0.9% 250 ML ONE (20:12)
[2022-05-18 22:44] LABS: Protime INR 1.05
[2022-05-18 22:52] LABS: Albumin 2.8 g/dL (3.4-5.0); Bilirubin Direct 0.2 mg/dL (0-0.2); Bilirubin Total 0.5 mg/dL (0.2-1.0); Potassium 4.2 mmol/L (3.5-5.1); Protein, Total 6.8 g/dL (6.4-8.2)
[2022-05-19] MEDS: PIPER TAZO 3.375 GM in NA CHLORIDE 0.9% 100 ML IV SCH ×3 (00:44→16:33)
[2022-05-19] MEDS: HYDROCODONE/APAP 5/325 MG TAB PO PRN (03:09)
[2022-05-19 06:12] LABS: Absolute Lymphocytes (CBC) 3.4 K/uL (0.7-4.9); Hematocrit 38.1 % (36.0-45.0); Lymphocytes % 14.7 % (15.3-44.8); MCV 89.2 fL (80-100); MPV 9.4 fL (7.6-11.3); RBC Red Blood Cell Count 4.27 M/uL (3.86-4.86)
[2022-05-19 06:33] LABS: Albumin 2.7 g/dL (3.4-5.0); Potassium 3.9 mmol/L (3.5-5.1); Prealbumin 12.7 mg/dL (20-40)
[2022-05-19] MEDS: ENOXAPARIN 40 MG/0.4 ML SQ SCH (07:29)
[2022-05-19] MEDS: INSULIN -REGULAR HUMAN 50 UNIT/0.5 ML ML SQ SCH ×4 (07:30→19:42)
[2022-05-19] MEDS: ACETAMINOPHEN 325 MG TABLET PO PRN (07:50)
[2022-05-19 08:16] LABS: Urine Bilirubin Negative (Negative); Urine Blood Trace-intact (Negative); Urine Clarity Slightly Cloudy (Clear); Urine Color Yellow (Yellow); Urine Glucose Negative (Negative); Urine Protein Negative (Negative); Urine Urobilinogen 0.2 mg/dL (0.2-1.0); Urine pH 7.5 (5.0-7.0)
[2022-05-19] MEDS: LOSARTAN POTASSIUM 50 MG TABLET PO SCH (08:26)
[2022-05-19] MEDS: GLIMEPIRIDE 2 MG TABLET PO SCH (08:26)
[2022-05-19] MEDS: MAGNESIUM OXIDE 400 MG TAB PO SCH ×2 (08:26→19:42)
[2022-05-19] MEDS: NYSTATIN PWDR 100000 UNIT/GM TOP SCH ×2 (08:26→19:41)
[2022-05-19] MEDS: ASPIRIN EC 81 MG TAB PO SCH (08:26)
[2022-05-19] MEDS: CLOPIDOGREL 75 MG TABLET PO SCH (08:26)
[2022-05-19] MEDS: METFORMIN ER 500 MG TAB PO SCH ×2 (08:26→16:47)
[2022-05-19] MEDS: CRANBERRY FRUIT EXTRACT 200 MG CAP PO SCH ×2 (08:26→19:41)
[2022-05-19] MEDS: DOCUSATE NA 100 MG CAP PO SCH ×2 (08:27→19:42)
[2022-05-19] MEDS: FOLIC ACID 1 MG TABLET PO SCH (08:27)
[2022-05-19 08:41] LABS: Urine Bacteria 20-50 /HPF (<20); Urine Mucus Slight /HPF (None Seen); Urine RBC <5 /HPF (None Seen); Urine Trichomonas Present /HPF (None Seen); Urine WBC Clump Few /HPF (None Seen)
[2022-05-19] MEDS: POLYETHYL GLY 3350 17 GM/DOSE PO PRN (12:45)
--- NOTE | 2022-05-19 17:49 | R.PN ---
PROGRESS NOTES ENCOUNTER DATE AND TIME: 05/19/2022 17:42 (CDT) NAME RANJEET LIMON DATE OF : 1955 DATE OF ADMISSION: 05/13/2022 15:50 (CDT) Cerebral infarction due to unspecified occlusion or stenosis of right posterior cerebral artery (I63. 531)CHIEF COMPLAINT: Stroke with left sided weakness and incoordination and urinary tract infection SUBJECTIVE: Pt denied any Shortness of Breath. Pt denied any depression. She has a temp of 98.1 with positive UA, WBC 22.9, E-Coli sensitive to Zosyn. Now on Zosyn. Chest x-r ay suggesst possible pulmonary edema or pneumonia. Glucose 90 to 122, prealumin 12.4. Ambulated 300' with SBA and hemiwalker. VITAL SIGNS Temperature: 98.1 F SBP/DBP: 115/59 Pulse: 89 Resp: 16 MEDICATION ALLERGIES: No Known Drug Allergies (NKDA) ENVIRONMENTAL ALLERGIES: - Substance Allergies None Known - Other Allergies None Known NURSING: - Shower allowing shower - Lab Results blood Sugar Check ACHS - Bladder care per protocol - Skin care per protocol PRECAUTIONS: - Weight Bearing Precaution WBAT left LE ACTIVITIES OOB only with supervision THERAPIES: - Dietary and Nutrition Adequate Nutrition. Nutritional Education. Nutritional Supplements. - Occupational Therapy Cognitive Retraining. Patient needs Occupational Therapy for a daily minimum of 1.5 hours at least 5 out of 7 days, to improve Activities of Daily Living, including: Eating, Grooming, Bathing, Dressing, Toileting, Toilet Transfers, Community Reintegration, Higher functional activities, Adaptive Equipme nt, Splinting, Household Tasks, and Other activities as determined. Visual Perceptual Training. - Speech Therapy Cognitive Training. Expressive Language Skills. Memory Strategies. Patient needs Speech Therapy for a daily minimum of 0.5 hours at least 5 out of 7 days, to improve: Swallowing, Cognition, Language Ski lls, and Compensatory Strategies. Receptive Language Skills. Speech Intelligibility Training. - Physical Therapy Patient needs Physical Therapy for a daily minimum of 1.5 hours at least 5 out of 7 days, to improve: Mobility, Strengthening, Transfers, Stretching, ROM, Endurance, Ability to manage stairs, Gait, and Balance. PHYSICAL EXAM - Gen Alert and awake Lying in bed No apparent distress Oriented to: person, time, and place - Skin No skin breakdown. Normacephalic - Eyes No abnormalities - ENMT No abnormalities - Neck No abnormalities - CVS RRR - Chest No abnormalities - Abd Soft - GI Non distended Deferred - No abnormalities - Ext Mild bilateral lower extremity edema. - MSK 4+/5 weakness in both lower extremities. - Neuro Incoordination, left sided weakness and dysmetria, unsteady gait - Psych No abnormalities ASSESSMENT: Pt. is a 67 yo Right-handed HF.On 05/09/2022 Pt. presented to [facility] with sudden onset of left-side weakness.On 05/09/2022 she was admitted to [facility] with diagnosis Cerebra l infarction due to unspecified occlusion or stenosis of right posterior cerebral artery (I63.531).He r impairment category is Stroke 01 - Left Body (Right Brain) (01.1).Pre-morbidly, Pt. was independen t/mod-I in Locomotion and Self-Care; and she had good Safety Awareness, Balance, Transfers Control, S phincter Control, and Endurance.Currently, she has deficits of Locomotion, Safety Awareness, Balance, Transfers Control, Sphincter Control, Endurance, and Self-Care.Pt. is now referred to [facility] for acute in-patient rehabilitation in order to maximize patient's functional ind ependence in activities of daily living, strength, ROM, and mobility.- Rehab Goal Patient has realistic goal of being discharged at assistance level 6-Dayana to reside at Home with Fam doug/Relatives. MDM/PLAN: - Physical Therapy Inability to transfer - to improve, our physical therapists will perform initial evaluation of pt's status upon admission and devise an individualized program for Bed mobility Need for home safety evaluation - to improve, our physical therapists will perform initial evaluatio n of pt's status upon admission and devise an individualized program for Home Evaluation Need in caregiver upon discharge - to improve, our physical therapists will perform initial evaluati on of pt's status upon admission and devise an individualized program for Caregiver Training New precaution - to improve, our physical therapists will perform initial evaluation of pt's status upon admission and devise an individualized program for Patient precaution education Poor balance - to improve, our physical therapists will perform initial evaluation of pt's status up on admission and devise an individualized program for Balance Training Poor endurance - to improve, our physical therapists will perform initial evaluation of pt's status upon admission and devise an individualized program for Endurance Training Weakness - to improve, our physical therapists will perform initial evaluation of pt's status upon a dmission and devise an individualized program for Aquatic Therapy, Neuromuscular Reeducation, and Str engthening Achieving independence - to improve, our physical therapists will perform initial evaluation of pt's status upon admission and devise an individualized program for Community Reintegration Activities - Occupational Therapy ADL deficits - to improve, our occupation therapists will perform initial evaluation of pt's status upon admission and devise an individualized program for Bathing, Bed mobility, Community Reintegratio n, Cooking, Dressing, Eating, Fine Motor Skills, Grooming, Homemaking, Kitchen Mobility, Laundry, Pat ient Education, Safety Awareness, Splinting - Positioning, Transfers(Toilet, Tub, Shower), and Wheel Chair Management Need for manager of care - to improve, our occupation therapists will perform initial evaluation of pt's status upon admission and devise an individualized program for Caregiver Training Weakness - to improve, our occupation therapists will perform initial evaluation of pt's status upon admission and devise an individualized program for Aquatic Therapy, Balance, Endurance, UE ROM, and UE strengthening - Other See attached MAR (Medication Administration Record) - Diet Type Continue Regular - Diet - Liquid Texture Continue Regular - Tube Feed Continue N/A - Lab Results blood Sugar Check ACHS - Bladder care per protocol - Weight Bearing Precaution WBAT left LE - Skin care per protocol - Diet - Solid Texture Continue Regular - Shower allowing shower for Dementia, TBI, Stroke, or others FUNCTIONAL STATUS: UPDATED AT WEEKLY TEAM CONFERENCE - Bladder Same accident frequency: 7-Ind - No accidents in the past 7 days - Bowel Same accident frequency: 7-Ind - No accidents in the past 7 days - Walking Same score based on distance walked: 0(N/A) - Wheelchair Same score based on distance traveled: 0(N/A) FUNCTIONAL STATUS: - Self-Care A. Eating Ind B. Grooming Ind C. Bathing Chance D. Dressing - Upper Chance E. Dressing - Lower Chance F. Toileting Chance - Sphincter Control G. Bladder control Dayana H. Bowel control Dayana - Transfers Control I. Bed/Chair/Wheelchair Chance J. Toilet Chance K. Tub/Shower modA - Locomotion L. Walk/Wheelchair (B) Chance M. Stairs modA - Communication N. Comprehension (B) Dayana O. Expression (B) Dayana - Social Cognition P. Social Interaction Dayana Q. Problem Solving Dayana R. Memory Dayana - Endurance Good - Balance Fair - Safety Awareness Good QI SCORES: - Self-Care A. Eating 04-Supervision or touching assistance B. Oral hygiene 04-Supervision or touching assistance C. Toileting hygiene 02-Substantial/maximal assistance E. Shower/bathe self 02-Substantial/maximal assistance F. Upper body dressing 02-Substantial/maximal assistance G. Lower body dressing 02-Substantial/maximal assistance H. Putting on/taking off footwear 02-Substantial/maximal assistance - Mobility A. Roll left and right 88-Not attempted due to medical condition or safety concerns B. Sit to lying 02-Substantial/maximal assistance C. Lying to sitting on side of bed 02-Substantial/maximal assistance D. Sit to stand 02-Substantial/maximal assistance E. Chair/[id number]-[id number] transfer 88-Not attempted due to medical condition or safety concerns F. Toilet transfer 88-Not attempted due to medical condition or safety concerns G. Car transfer 88-Not attempted due to medical condition or safety concerns I. Walk 10 feet 88-Not attempted due to medical condition or safety concerns J. Walk 50 feet with two turns 88-Not attempted due to medical condition or safety concerns K. Walk 150 feet 88-Not attempted due to medical condition or safety concerns L. Walking 10 feet on uneven surfaces 88-Not attempted due to medical condition or safety concerns M. 1 step (curb) 88-Not attempted due to medical condition or safety concerns N. 4 steps 88-Not attempted due to medical condition or safety concerns O. 12 steps 88-Not attempted due to medical condition or safety concerns P. Picking up object 88-Not attempted due to medical condition or safety concerns R. Wheel 50 feet with two turns 09-Not applicable S. Wheel 150 feet 09-Not applicable - Bladder and Bowel Bladder continence 2-Incontinent less than daily Bowel continence 2-Frequently incontinent - Endurance Poor - Balance Good - Safety Awareness Fair CURRENT FUNC. DEFICITS: Self-Care, Endurance, Safety Awareness, and Mobility SIGNATURE PANEL: (CDT)
[2022-05-19] MEDS: ATORVASTATIN 40 MG TAB PO SCH (19:42)
[2022-05-20] MEDS: PIPER TAZO 3.375 GM in NA CHLORIDE 0.9% 100 ML IV SCH ×2 (01:20→09:01)
[2022-05-20] MEDS: HYDROCODONE/APAP 5/325 MG TAB PO PRN ×2 (02:46→15:03)
[2022-05-20 06:59] LABS: Absolute Lymphocytes (CBC) 4.4 K/uL (0.7-4.9); Hematocrit 35.5 % (36.0-45.0); Lymphocytes % 20.9 % (15.3-44.8); MCV 87.7 fL (80-100); MPV 9.2 fL (7.6-11.3); RBC Red Blood Cell Count 4.05 M/uL (3.86-4.86)
[2022-05-20] MEDS: INSULIN -REGULAR HUMAN 50 UNIT/0.5 ML ML SQ SCH ×4 (07:30→20:39)
[2022-05-20] MEDS: LOSARTAN POTASSIUM 50 MG TABLET PO SCH (08:00)
[2022-05-20] MEDS: ENOXAPARIN 40 MG/0.4 ML SQ SCH (09:01)
[2022-05-20] MEDS: GLIMEPIRIDE 2 MG TABLET PO SCH (09:02)
[2022-05-20] MEDS: FOLIC ACID 1 MG TABLET PO SCH (09:02)
[2022-05-20] MEDS: DOCUSATE NA 100 MG CAP PO SCH ×2 (09:03→20:06)
[2022-05-20] MEDS: CLOPIDOGREL 75 MG TABLET PO SCH (09:03)
[2022-05-20] MEDS: CRANBERRY FRUIT EXTRACT 200 MG CAP PO SCH ×2 (09:03→20:06)
[2022-05-20] MEDS: ASPIRIN EC 81 MG TAB PO SCH (09:03)
[2022-05-20] MEDS: MAGNESIUM OXIDE 400 MG TAB PO SCH ×2 (09:03→20:06)
[2022-05-20] MEDS: METFORMIN ER 500 MG TAB PO SCH ×2 (09:03→17:04)
[2022-05-20] MEDS: NYSTATIN PWDR 100000 UNIT/GM TOP SCH ×2 (09:04→20:06)
--- NOTE | 2022-05-20 09:39 | P.RH.PN ---
Estimated Length of Stay: 14 Expected Discharge Date: 05/27/22 Discharge Disposition Plan: Home Family Support: Yes Assisted Goal: Mobility, Transfers, Self Care Vital Signs: Last Vital Signs Temp 97.2 F 05/20/22 07:54 Pulse 74 05/20/22 07:54 Resp 16 05/20/22 07:54 BP 102/55 L 05/20/22 07:54 Pulse Ox 91 05/20/22 07:54 Laboratory: Laboratory Last Values WBC 21.3 K/uL (4.3-10.9) H* 05/20/22 06:39 RBC 4.05 M/uL (3.86-4.86) 05/20/22 06:39 Hgb 11.8 g/dL (12.0-15.0) L 05/20/22 06:39 Hct 35.5 % (36.0-45.0) L 05/20/22 06:39 MCV 87.7 fL (80-100) 05/20/22 06:39 MCH 29.2 pg (27.0-35.0) 05/20/22 06:39 MCHC 33.4 g/dL (32.0-36.0) 05/20/22 06:39 RDW 14.1 % (12.1-15.2) 05/20/22 06:39 Plt Count 426 K/uL (152-406) H 05/20/22 06:39 MPV 9.2 fL (7.6-11.3) 05/20/22 06:39 Neutrophils % 63.6 % (41.7-73.7) 05/20/22 06:39 Lymphocytes % 20.9 % (15.3-44.8) 05/20/22 06:39 Monocytes % 12.2 % (3.3-12.3) 05/20/22 06:39 Eosinophils % 2.6 % (0-4.4) 05/20/22 06:39 Basophils % 0.7 % (0-1.3) 05/20/22 06:39 Absolute Neutrophils 13.5 K/uL (1.8-8.0) H 05/20/22 06:39 Absolute Lymphocytes 4.4 K/uL (0.7-4.9) 05/20/22 06:39 Absolute Monocytes 2.6 K/uL (0.1-1.3) H 05/20/22 06:39 Absolute Eosinophils 0.6 K/uL (0-0.5) H 05/20/22 06:39 Absolute Basophils 0.1 K/uL (0-0.5) 05/20/22 06:39 PT 11.6 SECONDS (9.5-12.5) 05/18/22 22:22 INR 1.05 05/18/22 22:22 APTT 23.5 SECONDS (24.3-36.9) L 05/18/22 22:22 Sodium 137 mmol/L (136-145) 05/19/22 05:34 Potassium 3.9 mmol/L (3.5-5.1) 05/19/22 05:34 Chloride 109 mmol/L (98-107) H 05/19/22 05:34 Carbon Dioxide 22 mmol/L (21-32) 05/19/22 05:34 Anion Gap 9.9 mEq/L (5.0-15.0) 05/19/22 05:34 BUN 12 mg/dL (7-18) 05/19/22 05:34 Creatinine 0.71 mg/dL (0.55-1.3) 05/19/22 05:34 Est GFR (CKD-EPI) 94 ml/min (=/>90) 05/19/22 05:34 Glucose 163 mg/dL (74-106) H 05/19/22 05:34 POC Glucose 106 mg/dL (65-120) 05/20/22 07:16 Lactic Acid 1.0 mmol/L (0.4-2.0) 05/18/22 22:22 Calcium 8.9 mg/dL (8.5-10.1) 05/19/22 05:34 Magnesium 2.0 mg/dL (1.8-2.4) 05/19/22 05:34 Total Bilirubin 0.5 mg/dL (0.2-1.0) 05/18/22 22:22 Direct Bilirubin 0.2 mg/dL (0-0.2) 05/18/22 22:22 AST 18 U/L (15-37) 05/18/22 22:22 ALT 22 U/L (12-78) 05/18/22 22:22 Alkaline Phosphatase 97 U/L (45-117) 05/18/22 22:22 Serum Total Protein 6.8 g/dL (6.4-8.2) 05/18/22 22:22 Albumin 2.7 g/dL (3.4-5.0) L 05/19/22 05:34 Globulin 4.0 g/dL (2.3-3.5) H 05/18/22 22:22 Albumin/Globulin Ratio 0.7 (1.1-1.8) L 05/18/22 22:22 Prealbumin 12.7 mg/dL (20-40) L 05/19/22 05:34 Amylase 24 U/L (25-115) L 05/18/22 22:22 Lipase 65 U/L (73-393) L 05/18/22 22:22 Urine Color Yellow (Yellow) 05/19/22 08:13 Urine Clarity Slightly cloudy (Clear) 05/19/22 08:13 Urine pH 7.5 (5.0-7.0) H 05/19/22 08:13 Ur Specific [place] 1.020 (1.005-1.030) 05/19/22 08:13 Glucose (UA)(Auto) Negative (Negative) 05/19/22 08:13 Urine Ketones Negative (Negative) 05/19/22 08:13 Urine Blood Trace-intact (Negative) H 05/19/22 08:13 Urine Nitrite Negative (Negative) 05/19/22 08:13 Urine Bilirubin Negative (Negative) 05/19/22 08:13 Urine Urobilinogen 0.2 mg/dL (0.2-1.0) 05/19/22 08:13 Ur Leukocyte Esterase 1+ (Negative) H 05/19/22 08:13 Urine RBC <5 /HPF (None Seen) 05/19/22 08:13 Urine Red Cell Clumps Cancelled 05/19/22 04:50 Urine WBC >50 /HPF (<5) H 05/19/22 08:13 Urine WBC Clumps Few /HPF (None Seen) H 05/19/22 08:13 Ur Squamous Epith Cells <5 /HPF (None Seen) 05/19/22 08:13 U Non-Squamous Epi Cells Cancelled 05/19/22 04:50 Ur Transition Epith Cell Cancelled 05/19/22 04:50 Ur Renal Epithelial Cell Cancelled 05/19/22 04:50 Calcium Carbonate Cryst Cancelled 05/19/22 04:50 Calcium Oxalate Crystal Cancelled 05/19/22 04:50 Leucine Crystals Cancelled 05/19/22 04:50 Cystine Crystals Cancelled 05/19/22 04:50 Uric Acid Crystals Cancelled 05/19/22 04:50 Triple Phos Crystals Cancelled 05/19/22 04:50 Tyrosine Crystals Cancelled 05/19/22 04:50 Unidentified Crystals Cancelled 05/19/22 04:50 Amorphous Crystals Cancelled 05/19/22 04:50 Urine Bacteria 20-50 /HPF (<20) H 05/19/22 08:13 Hyaline Casts Cancelled 05/19/22 04:50 Granular Casts Cancelled 05/19/22 04:50 Waxy Casts Cancelled 05/19/22 04:50 RBC Casts Cancelled 05/19/22 04:50 WBC Casts Cancelled 05/19/22 04:50 Urine Mucus Slight /HPF (None Seen) 05/19/22 08:13 Urine Trichomonas Present /HPF (None Seen) H 05/19/22 08:13 Ur Yeast w Hyphae Cancelled 05/19/22 04:50 Urine Yeast (Budding) Cancelled 05/19/22 04:50 Urine Sperm Cancelled 05/19/22 04:50 Ur Oval Fat Bodies Cancelled 05/19/22 04:50 Ur Microscopic Review Cancelled 05/19/22 04:50 Urine Total Protein Negative (Negative) 05/19/22 08:13 Urine Ascorbic Acid Cancelled 05/19/22 04:50 Urine Fat Cancelled 05/19/22 04:50 SARS-CoV-2 Rap RNA(RT-PCR) Negative (NEGATIVE) 05/17/22 08:30 Weight: 232 lb 1.6 oz Wound Present: No Closed Surgical Incision Present: No Negative Pressure Wound Therapy Present: No Physician Update: Labs reviewed. Mod I with bed mobility, sit to stand, transfering SBA. 300' with hemiwalker with SBA. Up and down 3 steps SBA. Bathing CGA, upper body dressing min assistance. Summary: Patient's care plan and mcc goals have been reviewed and revised as necessary. Please see the Rehabilitation Signature page for all necessary signatures.
[2022-05-20 13:00] LABS: Platelet Estimate ADEQ
[2022-05-20 13:01] LABS: Blood Morphology Comment NOTED (NOT SEEN); Hypochromasia 1+
--- NOTE | 2022-05-20 14:37 | RAD REPORT ---
EXAM DESCRIPTION: RAD - Barium Swallow Modified - 05/20/2022 2:30 pm CLINICAL HISTORY: dysphagia COMPARISON: No comparisons TECHNIQUE: The patient was given liquid, semi-solid and solid forms of barium. Lateral view fluorosc opic imaging was performed in conjunction with speech pathology service. FINDINGS: LARYNGEAL PENETRATION NOT CLEARED WITH THIN NECTAR PHARYNGEAL RESIDUE: MILD OTHER :ABSENT HYOID EXCURSION,ABSENT EPIGLOTTIC DEFLECTION , DECREASED LARYNGEAL ELEVATION Total fluoroscopy time: 2 minutes and 44 seconds
[2022-05-20] MEDS: Meropenem 1,000 MG in NA CHLORIDE 0.9% 100 ML IV SCH (17:04)
[2022-05-20] MEDS: ATORVASTATIN 40 MG TAB PO SCH (20:06)
[2022-05-20] MEDS: DOCUSATE NA/SENNA CONC 1 TAB PO PRN (20:06)
[2022-05-20] MEDS ORDERED: NA CHLORIDE 0.9% 250 ML ONE (23:24)
[2022-05-21] MEDS: Meropenem 1,000 MG in NA CHLORIDE 0.9% 100 ML IV SCH ×3 (00:04→17:01)
[2022-05-21] MEDS: HYDROCODONE/APAP 5/325 MG TAB PO PRN ×2 (00:26→11:37)
[2022-05-21 05:32] VITALS: BMI 41.8
[2022-05-21] MEDS: INSULIN -REGULAR HUMAN 50 UNIT/0.5 ML ML SQ SCH ×4 (07:30→20:00)
[2022-05-21] MEDS: DOCUSATE NA 100 MG CAP PO SCH ×2 (08:00→20:00)
[2022-05-21] MEDS: ENOXAPARIN 40 MG/0.4 ML SQ SCH (08:34)
[2022-05-21] MEDS: CLOPIDOGREL 75 MG TABLET PO SCH (08:54)
[2022-05-21] MEDS: METFORMIN ER 500 MG TAB PO SCH ×2 (08:54→17:02)
[2022-05-21] MEDS: MAGNESIUM OXIDE 400 MG TAB PO SCH ×2 (08:55→20:00)
[2022-05-21] MEDS: ASPIRIN EC 81 MG TAB PO SCH (08:55)
[2022-05-21] MEDS: GLIMEPIRIDE 2 MG TABLET PO SCH (08:55)
[2022-05-21] MEDS: CRANBERRY FRUIT EXTRACT 200 MG CAP PO SCH ×2 (08:55→19:59)
[2022-05-21] MEDS: FOLIC ACID 1 MG TABLET PO SCH (08:55)
[2022-05-21] MEDS: LOSARTAN POTASSIUM 50 MG TABLET PO SCH ×2 (08:56→19:59)
[2022-05-21] MEDS: NYSTATIN PWDR 100000 UNIT/GM TOP SCH ×2 (08:57→20:00)
[2022-05-21] MEDS: ATORVASTATIN 40 MG TAB PO SCH (20:00)
[2022-05-21] MEDS: DOCUSATE NA/SENNA CONC 1 TAB PO PRN (20:03)
[2022-05-21] MEDS ORDERED: NA CHLORIDE 0.9% 250 ML ONE (23:58)
[2022-05-22] MEDS: Meropenem 1,000 MG in NA CHLORIDE 0.9% 100 ML IV SCH ×3 (00:02→16:56)
[2022-05-22] MEDS: HYDROCODONE/APAP 5/325 MG TAB PO PRN ×2 (06:21→20:02)
[2022-05-22 06:47] LABS: Potassium 4.4 mmol/L (3.5-5.1)
[2022-05-22 06:57] LABS: Absolute Lymphocytes (CBC) 4.6 K/uL (0.7-4.9); Hematocrit 35.8 % (36.0-45.0); MCV 88.9 fL (80-100); MPV 9.4 fL (7.6-11.3); RBC Red Blood Cell Count 4.02 M/uL (3.86-4.86)
[2022-05-22] MEDS: ENOXAPARIN 40 MG/0.4 ML SQ SCH (07:20)
[2022-05-22] MEDS: INSULIN -REGULAR HUMAN 50 UNIT/0.5 ML ML SQ SCH ×4 (07:30→19:53)
[2022-05-22] MEDS: CLOPIDOGREL 75 MG TABLET PO SCH (08:55)
[2022-05-22] MEDS: FOLIC ACID 1 MG TABLET PO SCH (08:55)
[2022-05-22] MEDS: NYSTATIN PWDR 100000 UNIT/GM TOP SCH ×2 (08:55→19:52)
[2022-05-22] MEDS: GLIMEPIRIDE 2 MG TABLET PO SCH (08:55)
[2022-05-22] MEDS: CRANBERRY FRUIT EXTRACT 200 MG CAP PO SCH ×2 (08:55→19:52)
[2022-05-22] MEDS: ASPIRIN EC 81 MG TAB PO SCH (08:56)
[2022-05-22] MEDS: MAGNESIUM OXIDE 400 MG TAB PO SCH ×2 (08:56→19:52)
[2022-05-22] MEDS: DOCUSATE NA 100 MG CAP PO SCH ×2 (08:56→19:52)
[2022-05-22] MEDS: LOSARTAN POTASSIUM 50 MG TABLET PO SCH ×2 (08:56→19:52)
[2022-05-22] MEDS: METFORMIN ER 500 MG TAB PO SCH ×2 (08:56→16:55)
[2022-05-22] MEDS: ATORVASTATIN 40 MG TAB PO SCH (19:52)
[2022-05-23] MEDS: Meropenem 1,000 MG in NA CHLORIDE 0.9% 100 ML IV SCH ×3 (00:10→16:59)
[2022-05-23] MEDS: INSULIN -REGULAR HUMAN 50 UNIT/0.5 ML ML SQ SCH ×4 (07:30→20:28)
[2022-05-23] MEDS: CLOPIDOGREL 75 MG TABLET PO SCH (07:55)
[2022-05-23] MEDS: METFORMIN ER 500 MG TAB PO SCH ×2 (07:55→16:58)
[2022-05-23] MEDS: LOSARTAN POTASSIUM 50 MG TABLET PO SCH ×2 (07:55→20:27)
[2022-05-23] MEDS: ASPIRIN EC 81 MG TAB PO SCH (07:55)
[2022-05-23] MEDS: CRANBERRY FRUIT EXTRACT 200 MG CAP PO SCH ×2 (07:55→20:26)
[2022-05-23] MEDS: DOCUSATE NA 100 MG CAP PO SCH ×2 (07:55→20:27)
[2022-05-23] MEDS: GLIMEPIRIDE 2 MG TABLET PO SCH (07:55)
[2022-05-23] MEDS: ENOXAPARIN 40 MG/0.4 ML SQ SCH (07:55)
[2022-05-23] MEDS: FOLIC ACID 1 MG TABLET PO SCH (07:55)
[2022-05-23] MEDS: NYSTATIN PWDR 100000 UNIT/GM TOP SCH ×2 (07:57→20:28)
[2022-05-23] MEDS: MAGNESIUM OXIDE 400 MG TAB PO SCH ×2 (07:57→20:27)
[2022-05-23] MEDS: HYDROCODONE/APAP 5/325 MG TAB PO PRN (13:15)
--- NOTE | 2022-05-23 18:01 | R.PN ---
PROGRESS NOTES ENCOUNTER DATE AND TIME: 05/23/2022 17:55 (CDT) NAME RANJEET LIMON DATE OF : 1955 DATE OF ADMISSION: 05/13/2022 15:50 (CDT) Cerebral infarction due to unspecified occlusion or stenosis of right posterior cerebral artery (I63. 531)CHIEF COMPLAINT: Stroke with left sided weakness and incoordination and urinary tract infection SUBJECTIVE: Pt denied any Shortness of Breath. Pt denied any depression. She is afebrile. WBC improved to 13.9. She was switched to meropenem to treat ESBL E-Coli Chest x-r ay suggest possible pulmonary edema or pneumonia. Glucose 90 to 122, prealumin 12.4. Ambulated 375' with SBA and hemiwalker. Up and down 2 steps with CGA. She is itching all over, likely due to an allergic reaction to antibiotics. No rash noted. Benadryl 1 2.5 in the AM and 25 mg at night. VITAL SIGNS Temperature: 97.2 F SBP/DBP: 154/69 Pulse: 75 Resp: 15 MEDICATION ALLERGIES: No Known Drug Allergies (NKDA) ENVIRONMENTAL ALLERGIES: - Substance Allergies None Known - Other Allergies None Known NURSING: - Shower allowing shower - Lab Results blood Sugar Check ACHS - Bladder care per protocol - Skin care per protocol PRECAUTIONS: - Weight Bearing Precaution WBAT left LE ACTIVITIES OOB only with supervision THERAPIES: - Dietary and Nutrition Adequate Nutrition. Nutritional Education. Nutritional Supplements. - Occupational Therapy Cognitive Retraining. Patient needs Occupational Therapy for a daily minimum of 1.5 hours at least 5 out of 7 days, to improve Activities of Daily Living, including: Eating, Grooming, Bathing, Dressing, Toileting, Toilet Transfers, Community Reintegration, Higher functional activities, Adaptive Equipme nt, Splinting, Household Tasks, and Other activities as determined. Visual Perceptual Training. - Speech Therapy Cognitive Training. Expressive Language Skills. Memory Strategies. Patient needs Speech Therapy for a daily minimum of 0.5 hours at least 5 out of 7 days, to improve: Swallowing, Cognition, Language Ski lls, and Compensatory Strategies. Receptive Language Skills. Speech Intelligibility Training. - Physical Therapy Patient needs Physical Therapy for a daily minimum of 1.5 hours at least 5 out of 7 days, to improve: Mobility, Strengthening, Transfers, Stretching, ROM, Endurance, Ability to manage stairs, Gait, and Balance. PHYSICAL EXAM - Gen Alert and awake Lying in bed No apparent distress Oriented to: person, time, and place - Skin No skin breakdown. Normacephalic - Eyes No abnormalities - ENMT No abnormalities - Neck No abnormalities - CVS RRR - Chest No abnormalities - Abd Soft - GI Non distended Deferred - No abnormalities - Ext Mild bilateral lower extremity edema. - MSK 4+/5 weakness in both lower extremities. - Neuro Incoordination, left sided weakness and dysmetria, unsteady gait - Psych No abnormalities ASSESSMENT: Pt. is a 67 yo Right-handed HF.On 05/09/2022 Pt. presented to [facility] with sudden onset of left-side weakness.On 05/09/2022 she was admitted to [facility] with diagnosis Cerebra l infarction due to unspecified occlusion or stenosis of right posterior cerebral artery (I63.531).He r impairment category is Stroke 01 - Left Body (Right Brain) (01.1).Pre-morbidly, Pt. was independen t/mod-I in Locomotion and Self-Care; and she had good Safety Awareness, Balance, Transfers Control, S phincter Control, and Endurance.Currently, she has deficits of Locomotion, Safety Awareness, Balance, Transfers Control, Sphincter Control, Endurance, and Self-Care.Pt. is now referred to [facility] for acute in-patient rehabilitation in order to maximize patient's functional ind ependence in activities of daily living, strength, ROM, and mobility.- Rehab Goal Patient has realistic goal of being discharged at assistance level 6-Dayana to reside at Home with Fam doug/Relatives. MDM/PLAN: - Physical Therapy Inability to transfer - to improve, our physical therapists will perform initial evaluation of pt's status upon admission and devise an individualized program for Bed mobility Need for home safety evaluation - to improve, our physical therapists will perform initial evaluatio n of pt's status upon admission and devise an individualized program for Home Evaluation Need in caregiver upon discharge - to improve, our physical therapists will perform initial evaluati on of pt's status upon admission and devise an individualized program for Caregiver Training New precaution - to improve, our physical therapists will perform initial evaluation of pt's status upon admission and devise an individualized program for Patient precaution education Poor balance - to improve, our physical therapists will perform initial evaluation of pt's status up on admission and devise an individualized program for Balance Training Poor endurance - to improve, our physical therapists will perform initial evaluation of pt's status upon admission and devise an individualized program for Endurance Training Weakness - to improve, our physical therapists will perform initial evaluation of pt's status upon a dmission and devise an individualized program for Aquatic Therapy, Neuromuscular Reeducation, and Str engthening Achieving independence - to improve, our physical therapists will perform initial evaluation of pt's status upon admission and devise an individualized program for Community Reintegration Activities - Occupational Therapy ADL deficits - to improve, our occupation therapists will perform initial evaluation of pt's status upon admission and devise an individualized program for Bathing, Bed mobility, Community Reintegratio n, Cooking, Dressing, Eating, Fine Motor Skills, Grooming, Homemaking, Kitchen Mobility, Laundry, Pat ient Education, Safety Awareness, Splinting - Positioning, Transfers(Toilet, Tub, Shower), and Wheel Chair Management Need for customer care team coach - to improve, our occupation therapists will perform initial evaluation of pt's status upon admission and devise an individualized program for Caregiver Training Weakness - to improve, our occupation therapists will perform initial evaluation of pt's status upon admission and devise an individualized program for Aquatic Therapy, Balance, Endurance, UE ROM, and UE strengthening - Other See attached MAR (Medication Administration Record) - Diet Type Continue Regular - Diet - Liquid Texture Continue Regular - Tube Feed Continue N/A - Lab Results blood Sugar Check ACHS - Bladder care per protocol - Weight Bearing Precaution WBAT left LE - Skin care per protocol - Diet - Solid Texture Continue Regular - Shower allowing shower for Dementia, TBI, Stroke, or others FUNCTIONAL STATUS: UPDATED AT WEEKLY TEAM CONFERENCE - Bladder Same accident frequency: 7-Ind - No accidents in the past 7 days - Bowel Same accident frequency: 7-Ind - No accidents in the past 7 days - Walking Same score based on distance walked: 0(N/A) - Wheelchair Same score based on distance traveled: 0(N/A) FUNCTIONAL STATUS: - Self-Care A. Eating Ind B. Grooming Ind C. Bathing Chance D. Dressing - Upper Chance E. Dressing - Lower Chance F. Toileting Chance - Sphincter Control G. Bladder control Dayana H. Bowel control Dayana - Transfers Control I. Bed/Chair/Wheelchair Chance J. Toilet Chance K. Tub/Shower modA - Locomotion L. Walk/Wheelchair (B) Chance M. Stairs modA - Communication N. Comprehension (B) Dayana O. Expression (B) Dayana - Social Cognition P. Social Interaction Dayana Q. Problem Solving Dayana R. Memory Dayana - Endurance Good - Balance Fair - Safety Awareness Good QI SCORES: - Self-Care A. Eating 04-Supervision or touching assistance B. Oral hygiene 04-Supervision or touching assistance C. Toileting hygiene 02-Substantial/maximal assistance E. Shower/bathe self 02-Substantial/maximal assistance F. Upper body dressing 02-Substantial/maximal assistance G. Lower body dressing 02-Substantial/maximal assistance H. Putting on/taking off footwear 02-Substantial/maximal assistance - Mobility A. Roll left and right 88-Not attempted due to medical condition or safety concerns B. Sit to lying 02-Substantial/maximal assistance C. Lying to sitting on side of bed 02-Substantial/maximal assistance D. Sit to stand 02-Substantial/maximal assistance E. Chair/zor-wn-eakee transfer 88-Not attempted due to medical condition or safety concerns F. Toilet transfer 88-Not attempted due to medical condition or safety concerns G. Car transfer 88-Not attempted due to medical condition or safety concerns I. Walk 10 feet 88-Not attempted due to medical condition or safety concerns J. Walk 50 feet with two turns 88-Not attempted due to medical condition or safety concerns K. Walk 150 feet 88-Not attempted due to medical condition or safety concerns L. Walking 10 feet on uneven surfaces 88-Not attempted due to medical condition or safety concerns M. 1 step (curb) 88-Not attempted due to medical condition or safety concerns N. 4 steps 88-Not attempted due to medical condition or safety concerns O. 12 steps 88-Not attempted due to medical condition or safety concerns P. Picking up object 88-Not attempted due to medical condition or safety concerns R. Wheel 50 feet with two turns 09-Not applicable S. Wheel 150 feet 09-Not applicable - Bladder and Bowel Bladder continence 2-Incontinent less than daily Bowel continence 2-Frequently incontinent - Endurance Poor - Balance Good - Safety Awareness Fair CURRENT [facility]. DEFICITS: Self-Care, Endurance, Safety Awareness, and Mobility SIGNATURE PANEL: (CDT)
[2022-05-23] MEDS: ATORVASTATIN 40 MG TAB PO SCH (20:26)
[2022-05-24] MEDS: ENOXAPARIN 40 MG/0.4 ML SQ SCH (07:26)
[2022-05-24] MEDS: INSULIN -REGULAR HUMAN 50 UNIT/0.5 ML ML SQ SCH ×4 (07:30→21:00)
[2022-05-24] MEDS: NYSTATIN PWDR 100000 UNIT/GM TOP SCH ×2 (07:58→21:22)
[2022-05-24] MEDS: GLIMEPIRIDE 2 MG TABLET PO SCH (07:59)
[2022-05-24] MEDS: MAGNESIUM OXIDE 400 MG TAB PO SCH ×2 (07:59→21:21)
[2022-05-24] MEDS: ASPIRIN EC 81 MG TAB PO SCH (07:59)
[2022-05-24] MEDS: CRANBERRY FRUIT EXTRACT 200 MG CAP PO SCH ×2 (07:59→21:21)
[2022-05-24] MEDS: METFORMIN ER 500 MG TAB PO SCH ×2 (07:59→16:56)
[2022-05-24] MEDS: CLOPIDOGREL 75 MG TABLET PO SCH (08:00)
[2022-05-24] MEDS: LOSARTAN POTASSIUM 50 MG TABLET PO SCH ×2 (08:00→21:21)
[2022-05-24] MEDS: DOCUSATE NA 100 MG CAP PO SCH ×2 (08:00→21:21)
[2022-05-24] MEDS: FOLIC ACID 1 MG TABLET PO SCH (08:00)
[2022-05-24] MEDS: HYDROCODONE/APAP 5/325 MG TAB PO PRN ×2 (10:07→19:42)
--- NOTE | 2022-05-24 18:30 | R.PN ---
PROGRESS NOTES ENCOUNTER DATE AND TIME: 05/24/2022 18:25 (CDT) NAME RANJEET LIMON DATE OF : 1955 DATE OF ADMISSION: 05/13/2022 15:50 (CDT) Cerebral infarction due to unspecified occlusion or stenosis of right posterior cerebral artery (I63. 531)CHIEF COMPLAINT: Stroke with left sided weakness and incoordination and urinary tract infection SUBJECTIVE: Pt denied any Shortness of Breath. Pt denied any depression. She is afebrile. WBC improved to 13.9. She was switched to meropenem to treat ESBL E-Coli Chest x-r ay suggest possible pulmonary edema or pneumonia. Glucose 90 to 122, prealumin 12.4. Ambulated 375' with SBA and hemiwalker. Up and down 2 steps with SBA. Her itching due to an allergic reaction to antibiotics has improved. No rash noted. Benadryl 25 mg in the AM and 25 mg at night. VITAL SIGNS Temperature: 97.4 F SBP/DBP: 117/65 Pulse: 66 Resp: 16 MEDICATION ALLERGIES: No Known Drug Allergies (NKDA) ENVIRONMENTAL ALLERGIES: - Substance Allergies None Known - Other Allergies None Known NURSING: - Shower allowing shower - Lab Results blood Sugar Check ACHS - Bladder care per protocol - Skin care per protocol PRECAUTIONS: - Weight Bearing Precaution WBAT left LE ACTIVITIES OOB only with supervision THERAPIES: - Dietary and Nutrition Adequate Nutrition. Nutritional Education. Nutritional Supplements. - Occupational Therapy Cognitive Retraining. Patient needs Occupational Therapy for a daily minimum of 1.5 hours at least 5 out of 7 days, to improve Activities of Daily Living, including: Eating, Grooming, Bathing, Dressing, Toileting, Toilet Transfers, Community Reintegration, Higher functional activities, Adaptive Equipme nt, Splinting, Household Tasks, and Other activities as determined. Visual Perceptual Training. - Speech Therapy Cognitive Training. Expressive Language Skills. Memory Strategies. Patient needs Speech Therapy for a daily minimum of 0.5 hours at least 5 out of 7 days, to improve: Swallowing, Cognition, Language Ski lls, and Compensatory Strategies. Receptive Language Skills. Speech Intelligibility Training. - Physical Therapy Patient needs Physical Therapy for a daily minimum of 1.5 hours at least 5 out of 7 days, to improve: Mobility, Strengthening, Transfers, Stretching, ROM, Endurance, Ability to manage stairs, Gait, and Balance. PHYSICAL EXAM - Gen Alert and awake Lying in bed No apparent distress Oriented to: person, time, and place - Skin No skin breakdown. Normacephalic - Eyes No abnormalities - ENMT No abnormalities - Neck No abnormalities - CVS RRR - Chest No abnormalities - Abd Soft - GI Non distended Deferred - No abnormalities - Ext Mild bilateral lower extremity edema. - MSK 4+/5 weakness in both lower extremities. - Neuro Incoordination, left sided weakness and dysmetria, unsteady gait - Psych No abnormalities ASSESSMENT: Pt. is a 67 yo Right-handed HF.On 05/09/2022 Pt. presented to [facility] with sudden onset of left-side weakness.On 05/09/2022 she was admitted to [facility] with diagnosis Cerebra l infarction due to unspecified occlusion or stenosis of right posterior cerebral artery (I63.531).He r impairment category is Stroke 01 - Left Body (Right Brain) (01.1).Pre-morbidly, Pt. was independen t/mod-I in Locomotion and Self-Care; and she had good Safety Awareness, Balance, Transfers Control, S phincter Control, and Endurance.Currently, she has deficits of Locomotion, Safety Awareness, Balance, Transfers Control, Sphincter Control, Endurance, and Self-Care.Pt. is now referred to [facility] for acute in-patient rehabilitation in order to maximize patient's functional ind ependence in activities of daily living, strength, ROM, and mobility.- Rehab Goal Patient has realistic goal of being discharged at assistance level 6-Dayana to reside at Home with Fam doug/Relatives. MDM/PLAN: - Physical Therapy Inability to transfer - to improve, our physical therapists will perform initial evaluation of pt's status upon admission and devise an individualized program for Bed mobility Need for home safety evaluation - to improve, our physical therapists will perform initial evaluatio n of pt's status upon admission and devise an individualized program for Home Evaluation Need in caregiver upon discharge - to improve, our physical therapists will perform initial evaluati on of pt's status upon admission and devise an individualized program for Caregiver Training New precaution - to improve, our physical therapists will perform initial evaluation of pt's status upon admission and devise an individualized program for Patient precaution education Poor balance - to improve, our physical therapists will perform initial evaluation of pt's status up on admission and devise an individualized program for Balance Training Poor endurance - to improve, our physical therapists will perform initial evaluation of pt's status upon admission and devise an individualized program for Endurance Training Weakness - to improve, our physical therapists will perform initial evaluation of pt's status upon a dmission and devise an individualized program for Aquatic Therapy, Neuromuscular Reeducation, and Str engthening Achieving independence - to improve, our physical therapists will perform initial evaluation of pt's status upon admission and devise an individualized program for Community Reintegration Activities - Occupational Therapy ADL deficits - to improve, our occupation therapists will perform initial evaluation of pt's status upon admission and devise an individualized program for Bathing, Bed mobility, Community Reintegratio n, Cooking, Dressing, Eating, Fine Motor Skills, Grooming, Homemaking, Kitchen Mobility, Laundry, Pat ient Education, Safety Awareness, Splinting - Positioning, Transfers(Toilet, Tub, Shower), and Wheel Chair Management Need for mall plant caretaker - to improve, our occupation therapists will perform initial evaluation of pt's status upon admission and devise an individualized program for Caregiver Training Weakness - to improve, our occupation therapists will perform initial evaluation of pt's status upon admission and devise an individualized program for Aquatic Therapy, Balance, Endurance, UE ROM, and UE strengthening - Other See attached MAR (Medication Administration Record) - Diet Type Continue Regular - Diet - Liquid Texture Continue Regular - Tube Feed Continue N/A - Lab Results blood Sugar Check ACHS - Bladder care per protocol - Weight Bearing Precaution WBAT left LE - Skin care per protocol - Diet - Solid Texture Continue Regular - Shower allowing shower for Dementia, TBI, Stroke, or others FUNCTIONAL STATUS: UPDATED AT WEEKLY TEAM CONFERENCE - Bladder Same accident frequency: 7-Ind - No accidents in the past 7 days - Bowel Same accident frequency: 7-Ind - No accidents in the past 7 days - Walking Same score based on distance walked: 0(N/A) - Wheelchair Same score based on distance traveled: 0(N/A) FUNCTIONAL STATUS: - Self-Care A. Eating Ind B. Grooming Ind C. Bathing Chance D. Dressing - Upper Chance E. Dressing - Lower Chance F. Toileting Chance - Sphincter Control G. Bladder control Dayana H. Bowel control Dayana - Transfers Control I. Bed/Chair/Wheelchair Chance J. Toilet Chance K. Tub/Shower modA - Locomotion L. Walk/Wheelchair (B) Chance M. Stairs modA - Communication N. Comprehension (B) Dayana O. Expression (B) Dayana - Social Cognition P. Social Interaction Dayana Q. Problem Solving Dayana R. Memory Dayana - Endurance Good - Balance Fair - Safety Awareness Good QI SCORES: - Self-Care A. Eating 04-Supervision or touching assistance B. Oral hygiene 04-Supervision or touching assistance C. Toileting hygiene 02-Substantial/maximal assistance E. Shower/bathe self 02-Substantial/maximal assistance F. Upper body dressing 02-Substantial/maximal assistance G. Lower body dressing 02-Substantial/maximal assistance H. Putting on/taking off footwear 02-Substantial/maximal assistance - Mobility A. Roll left and right 88-Not attempted due to medical condition or safety concerns B. Sit to lying 02-Substantial/maximal assistance C. Lying to sitting on side of bed 02-Substantial/maximal assistance D. Sit to stand 02-Substantial/maximal assistance E. Chair/pvb-bf-[id number] transfer 88-Not attempted due to medical condition or safety concerns F. Toilet transfer 88-Not attempted due to medical condition or safety concerns G. Car transfer 88-Not attempted due to medical condition or safety concerns I. Walk 10 feet 88-Not attempted due to medical condition or safety concerns J. Walk 50 feet with two turns 88-Not attempted due to medical condition or safety concerns K. Walk 150 feet 88-Not attempted due to medical condition or safety concerns L. Walking 10 feet on uneven surfaces 88-Not attempted due to medical condition or safety concerns M. 1 step (curb) 88-Not attempted due to medical condition or safety concerns N. 4 steps 88-Not attempted due to medical condition or safety concerns O. 12 steps 88-Not attempted due to medical condition or safety concerns P. Picking up object 88-Not attempted due to medical condition or safety concerns R. Wheel 50 feet with two turns 09-Not applicable S. Wheel 150 feet 09-Not applicable - Bladder and Bowel Bladder continence 2-Incontinent less than daily Bowel continence 2-Frequently incontinent - Endurance Poor - Balance Good - Safety Awareness Fair CURRENT [facility]. DEFICITS: Self-Care, Endurance, Safety Awareness, and Mobility SIGNATURE PANEL: (CDT)
[2022-05-24] MEDS: ATORVASTATIN 40 MG TAB PO SCH (21:21)
[2022-05-25 04:51] LABS: Absolute Lymphocytes (CBC) 6.3 K/uL (0.7-4.9); Hematocrit 35.2 % (36.0-45.0); MCV 89.5 fL (80-100); MPV 8.9 fL (7.6-11.3); RBC Red Blood Cell Count 3.93 M/uL (3.86-4.86)
[2022-05-25 05:16] LABS: Albumin 2.5 g/dL (3.4-5.0); Magnesium 2.2 mg/dL (1.8-2.4); Potassium 4.4 mmol/L (3.5-5.1)
[2022-05-25] MEDS: HYDROCODONE/APAP 5/325 MG TAB PO PRN (06:41)
[2022-05-25] MEDS: INSULIN -REGULAR HUMAN 50 UNIT/0.5 ML ML SQ SCH ×4 (07:30→20:18)
[2022-05-25] MEDS: ENOXAPARIN 40 MG/0.4 ML SQ SCH (07:40)
[2022-05-25] MEDS: METFORMIN ER 500 MG TAB PO SCH ×2 (08:17→17:30)
[2022-05-25] MEDS: CLOPIDOGREL 75 MG TABLET PO SCH (08:18)
[2022-05-25] MEDS: ASPIRIN EC 81 MG TAB PO SCH (08:18)
[2022-05-25] MEDS: MAGNESIUM OXIDE 400 MG TAB PO SCH ×2 (08:18→19:40)
[2022-05-25] MEDS: FOLIC ACID 1 MG TABLET PO SCH (08:18)
[2022-05-25] MEDS: DOCUSATE NA 100 MG CAP PO SCH ×2 (08:18→19:40)
[2022-05-25] MEDS: CRANBERRY FRUIT EXTRACT 200 MG CAP PO SCH ×2 (08:18→19:39)
[2022-05-25] MEDS: LOSARTAN POTASSIUM 50 MG TABLET PO SCH ×2 (08:19→19:39)
[2022-05-25] MEDS: NYSTATIN PWDR 100000 UNIT/GM TOP SCH ×2 (08:19→19:40)
[2022-05-25] MEDS: GLIMEPIRIDE 2 MG TABLET PO SCH (08:19)
[2022-05-25] MEDS: ATORVASTATIN 40 MG TAB PO SCH (19:40)
--- NOTE | 2022-05-25 20:30 | R.PN ---
PROGRESS NOTES ENCOUNTER DATE AND TIME: 05/25/2022 20:26 (CDT) NAME RANJEET LIMON DATE OF : 1955 DATE OF ADMISSION: 05/13/2022 15:50 (CDT) Cerebral infarction due to unspecified occlusion or stenosis of right posterior cerebral artery (I63. 531)CHIEF COMPLAINT: Stroke with left sided weakness and incoordination and urinary tract infection SUBJECTIVE: Pt denied any Shortness of Breath. Pt denied any depression. She is afebrile. WBC 15.1. She was switched to meropenem to treat ESBL E-Coli Chest x-ray suggest p ossible pulmonary edema or pneumonia. Glucose 91 to 125, prealumin 13.0. Ambulated 370' with SBA and hemiwalker. VITAL SIGNS Temperature: 97.8 F SBP/DBP: 127/64 Pulse: 76 Resp: 16 MEDICATION ALLERGIES: No Known Drug Allergies (NKDA) ENVIRONMENTAL ALLERGIES: - Substance Allergies None Known - Other Allergies None Known NURSING: - Shower allowing shower - Lab Results blood Sugar Check ACHS - Bladder care per protocol - Skin care per protocol PRECAUTIONS: - Weight Bearing Precaution WBAT left LE ACTIVITIES OOB only with supervision THERAPIES: - Dietary and Nutrition Adequate Nutrition. Nutritional Education. Nutritional Supplements. - Occupational Therapy Cognitive Retraining. Patient needs Occupational Therapy for a daily minimum of 1.5 hours at least 5 out of 7 days, to improve Activities of Daily Living, including: Eating, Grooming, Bathing, Dressing, Toileting, Toilet Transfers, Community Reintegration, Higher functional activities, Adaptive Equipme nt, Splinting, Household Tasks, and Other activities as determined. Visual Perceptual Training. - Speech Therapy Cognitive Training. Expressive Language Skills. Memory Strategies. Patient needs Speech Therapy for a daily minimum of 0.5 hours at least 5 out of 7 days, to improve: Swallowing, Cognition, Language Ski lls, and Compensatory Strategies. Receptive Language Skills. Speech Intelligibility Training. - Physical Therapy Patient needs Physical Therapy for a daily minimum of 1.5 hours at least 5 out of 7 days, to improve: Mobility, Strengthening, Transfers, Stretching, ROM, Endurance, Ability to manage stairs, Gait, and Balance. PHYSICAL EXAM - Gen Alert and awake Lying in bed No apparent distress Oriented to: person, time, and place - Skin No skin breakdown. Normacephalic - Eyes No abnormalities - ENMT No abnormalities - Neck No abnormalities - CVS RRR - Chest No abnormalities - Abd Soft - GI Non distended Deferred - No abnormalities - Ext Mild bilateral lower extremity edema. - MSK 4+/5 weakness in both lower extremities. - Neuro Incoordination, left sided weakness and dysmetria, unsteady gait - Psych No abnormalities ASSESSMENT: Pt. is a 67 yo Right-handed HF.On 05/09/2022 Pt. presented to [facility] with sudden onset of left-side weakness.On 05/09/2022 she was admitted to [facility] with diagnosis Cerebra l infarction due to unspecified occlusion or stenosis of right posterior cerebral artery (I63.531).He r impairment category is Stroke 01 - Left Body (Right Brain) (01.1).Pre-morbidly, Pt. was independen t/mod-I in Locomotion and Self-Care; and she had good Safety Awareness, Balance, Transfers Control, S phincter Control, and Endurance.Currently, she has deficits of Locomotion, Safety Awareness, Balance, Transfers Control, Sphincter Control, Endurance, and Self-Care.Pt. is now referred to [facility] for acute in-patient rehabilitation in order to maximize patient's functional ind ependence in activities of daily living, strength, ROM, and mobility.- Rehab Goal Patient has realistic goal of being discharged at assistance level 6-Dayana to reside at Home with Fam doug/Relatives. MDM/PLAN: - Physical Therapy Inability to transfer - to improve, our physical therapists will perform initial evaluation of pt's status upon admission and devise an individualized program for Bed mobility Need for home safety evaluation - to improve, our physical therapists will perform initial evaluatio n of pt's status upon admission and devise an individualized program for Home Evaluation Need in caregiver upon discharge - to improve, our physical therapists will perform initial evaluati on of pt's status upon admission and devise an individualized program for Caregiver Training New precaution - to improve, our physical therapists will perform initial evaluation of pt's status upon admission and devise an individualized program for Patient precaution education Poor balance - to improve, our physical therapists will perform initial evaluation of pt's status up on admission and devise an individualized program for Balance Training Poor endurance - to improve, our physical therapists will perform initial evaluation of pt's status upon admission and devise an individualized program for Endurance Training Weakness - to improve, our physical therapists will perform initial evaluation of pt's status upon a dmission and devise an individualized program for Aquatic Therapy, Neuromuscular Reeducation, and Str engthening Achieving independence - to improve, our physical therapists will perform initial evaluation of pt's status upon admission and devise an individualized program for Community Reintegration Activities - Occupational Therapy ADL deficits - to improve, our occupation therapists will perform initial evaluation of pt's status upon admission and devise an individualized program for Bathing, Bed mobility, Community Reintegratio n, Cooking, Dressing, Eating, Fine Motor Skills, Grooming, Homemaking, Kitchen Mobility, Laundry, Pat ient Education, Safety Awareness, Splinting - Positioning, Transfers(Toilet, Tub, Shower), and Wheel Chair Management Need for before and after school daycare worker - to improve, our occupation therapists will perform initial evaluation of pt's status upon admission and devise an individualized program for Caregiver Training Weakness - to improve, our occupation therapists will perform initial evaluation of pt's status upon admission and devise an individualized program for Aquatic Therapy, Balance, Endurance, UE ROM, and UE strengthening - Other See attached MAR (Medication Administration Record) - Diet Type Continue Regular - Diet - Liquid Texture Continue Regular - Tube Feed Continue N/A - Lab Results blood Sugar Check ACHS - Bladder care per protocol - Weight Bearing Precaution WBAT left LE - Skin care per protocol - Diet - Solid Texture Continue Regular - Shower allowing shower for Dementia, TBI, Stroke, or others FUNCTIONAL STATUS: UPDATED AT WEEKLY TEAM CONFERENCE - Bladder Same accident frequency: 7-Ind - No accidents in the past 7 days - Bowel Same accident frequency: 7-Ind - No accidents in the past 7 days - Walking Same score based on distance walked: 0(N/A) - Wheelchair Same score based on distance traveled: 0(N/A) FUNCTIONAL STATUS: - Self-Care A. Eating Ind B. Grooming Ind C. Bathing Chance D. Dressing - Upper Chance E. Dressing - Lower Chance F. Toileting Chance - Sphincter Control G. Bladder control Dayana H. Bowel control Dayana - Transfers Control I. Bed/Chair/Wheelchair Chance J. Toilet Chance K. Tub/Shower modA - Locomotion L. Walk/Wheelchair (B) Chance M. Stairs modA - Communication N. Comprehension (B) Dayana O. Expression (B) Dayana - Social Cognition P. Social Interaction Dayana Q. Problem Solving Dayana R. Memory Dayana - Endurance Good - Balance Fair - Safety Awareness Good QI SCORES: - Self-Care A. Eating 04-Supervision or touching assistance B. Oral hygiene 04-Supervision or touching assistance C. Toileting hygiene 02-Substantial/maximal assistance E. Shower/bathe self 02-Substantial/maximal assistance F. Upper body dressing 02-Substantial/maximal assistance G. Lower body dressing 02-Substantial/maximal assistance H. Putting on/taking off footwear 02-Substantial/maximal assistance - Mobility A. Roll left and right 88-Not attempted due to medical condition or safety concerns B. Sit to lying 02-Substantial/maximal assistance C. Lying to sitting on side of bed 02-Substantial/maximal assistance D. Sit to stand 02-Substantial/maximal assistance E. Chair/[id number] transfer 88-Not attempted due to medical condition or safety concerns F. Toilet transfer 88-Not attempted due to medical condition or safety concerns G. Car transfer 88-Not attempted due to medical condition or safety concerns I. Walk 10 feet 88-Not attempted due to medical condition or safety concerns J. Walk 50 feet with two turns 88-Not attempted due to medical condition or safety concerns K. Walk 150 feet 88-Not attempted due to medical condition or safety concerns L. Walking 10 feet on uneven surfaces 88-Not attempted due to medical condition or safety concerns M. 1 step (curb) 88-Not attempted due to medical condition or safety concerns N. 4 steps 88-Not attempted due to medical condition or safety concerns O. 12 steps 88-Not attempted due to medical condition or safety concerns P. Picking up object 88-Not attempted due to medical condition or safety concerns R. Wheel 50 feet with two turns 09-Not applicable S. Wheel 150 feet 09-Not applicable - Bladder and Bowel Bladder continence 2-Incontinent less than daily Bowel continence 2-Frequently incontinent - Endurance Poor - Balance Good - Safety Awareness Fair CURRENT FUNC. DEFICITS: Self-Care, Endurance, Safety Awareness, and Mobility SIGNATURE PANEL: (CDT)
[2022-05-26 04:17] LABS: Hematocrit 34.2 % (36.0-45.0); Lymphocytes % 39.3 % (15.3-44.8); MCV 88.7 fL (80-100); MPV 8.9 fL (7.6-11.3); RBC Red Blood Cell Count 3.86 M/uL (3.86-4.86)
[2022-05-26] MEDS: HYDROCODONE/APAP 5/325 MG TAB PO PRN (07:06)
[2022-05-26] MEDS: INSULIN -REGULAR HUMAN 50 UNIT/0.5 ML ML SQ SCH ×4 (07:19→19:54)
--- NOTE | 2022-05-26 09:47 | P.RH.PN ---
Estimated Length of Stay: 14 Expected Discharge Date: 05/27/22 Discharge Disposition Plan: Home Family Support: Yes Long-Term Goal: Mobility, Transfers, Self Care Vital Signs: Last Vital Signs Temp 97.4 F 05/26/22 06:51 Pulse 76 05/26/22 06:51 Resp 16 05/26/22 07:06 BP 142/78 H 05/26/22 06:51 Pulse Ox 98 05/26/22 07:06 Laboratory: Laboratory Last Values WBC 15.2 K/uL (4.3-10.9) H 05/26/22 03:57 RBC 3.86 M/uL (3.86-4.86) 05/26/22 03:57 Hgb 11.6 g/dL (12.0-15.0) L 05/26/22 03:57 Hct 34.2 % (36.0-45.0) L 05/26/22 03:57 MCV 88.7 fL (80-100) 05/26/22 03:57 MCH 30.0 pg (27.0-35.0) 05/26/22 03:57 MCHC 33.8 g/dL (32.0-36.0) 05/26/22 03:57 RDW 13.9 % (12.1-15.2) 05/26/22 03:57 Plt Count 535 K/uL (152-406) H 05/26/22 03:57 MPV 8.9 fL (7.6-11.3) 05/26/22 03:57 Neutrophils % 44.5 % (41.7-73.7) 05/26/22 03:57 Lymphocytes % 39.3 % (15.3-44.8) 05/26/22 03:57 Monocytes % 9.0 % (3.3-12.3) 05/26/22 03:57 Eosinophils % 6.1 % (0-4.4) H 05/26/22 03:57 Basophils % 1.1 % (0-1.3) 05/26/22 03:57 Absolute Neutrophils 6.7 K/uL (1.8-8.0) 05/26/22 03:57 Segmented Neutrophils 64 % (40-80) 05/20/22 06:39 Absolute Lymphocytes 6.0 K/uL (0.7-4.9) H 05/26/22 03:57 Lymphocytes 26 % (15-42) 05/20/22 06:39 Monocytes 6 % (0-10) 05/20/22 06:39 Absolute Monocytes 1.4 K/uL (0.1-1.3) H 05/26/22 03:57 Eosinophils 4 % (0-3) H 05/20/22 06:39 Absolute Eosinophils 0.9 K/uL (0-0.5) H 05/26/22 03:57 Absolute Basophils 0.2 K/uL (0-0.5) 05/26/22 03:57 Platelet Estimate Adeq 05/20/22 06:39 Hypochromasia 1+ 05/20/22 06:39 Morphology Comment Noted (NOT SEEN) 05/20/22 06:39 PT 11.6 SECONDS (9.5-12.5) 05/18/22 22:22 INR 1.05 05/18/22 22:22 APTT 23.5 SECONDS (24.3-36.9) L 05/18/22 22:22 Sodium 142 mmol/L (136-145) 05/25/22 04:31 Potassium 4.4 mmol/L (3.5-5.1) 05/25/22 04:31 Chloride 113 mmol/L (98-107) H 05/25/22 04:31 Carbon Dioxide 26 mmol/L (21-32) 05/25/22 04:31 Anion Gap 7.4 mEq/L (5.0-15.0) 05/25/22 04:31 BUN 15 mg/dL (7-18) 05/25/22 04:31 Creatinine 0.52 mg/dL (0.55-1.3) L 05/25/22 04:31 Est GFR (CKD-EPI) 102 ml/min (=/>90) 05/25/22 04:31 Glucose 101 mg/dL (74-106) 05/25/22 04:31 POC Glucose 102 mg/dL (65-120) 05/26/22 07:09 Lactic Acid 1.0 mmol/L (0.4-2.0) 05/18/22 22:22 Calcium 8.9 mg/dL (8.5-10.1) 05/25/22 04:31 Magnesium 2.2 mg/dL (1.8-2.4) 05/25/22 04:31 Total Bilirubin 0.5 mg/dL (0.2-1.0) 05/18/22 22:22 Direct Bilirubin 0.2 mg/dL (0-0.2) 05/18/22 22:22 AST 18 U/L (15-37) 05/18/22 22:22 ALT 22 U/L (12-78) 05/18/22 22:22 Alkaline Phosphatase 97 U/L (45-117) 05/18/22 22:22 Serum Total Protein 6.8 g/dL (6.4-8.2) 05/18/22 22:22 Albumin 2.5 g/dL (3.4-5.0) L 05/25/22 04:31 Globulin 4.0 g/dL (2.3-3.5) H 05/18/22 22:22 Albumin/Globulin Ratio 0.7 (1.1-1.8) L 05/18/22 22:22 Prealbumin 13.0 mg/dL (20-40) L 05/25/22 04:31 Amylase 24 U/L (25-115) L 05/18/22 22:22 Lipase 65 U/L (73-393) L 05/18/22 22:22 Urine Color Yellow (Yellow) 05/19/22 08:13 Urine Clarity Slightly cloudy (Clear) 05/19/22 08:13 Urine pH 7.5 (5.0-7.0) H 05/19/22 08:13 Ur Specific [place] 1.020 (1.005-1.030) 05/19/22 08:13 Glucose (UA)(Auto) Negative (Negative) 05/19/22 08:13 Urine Ketones Negative (Negative) 05/19/22 08:13 Urine Blood Trace-intact (Negative) H 05/19/22 08:13 Urine Nitrite Negative (Negative) 05/19/22 08:13 Urine Bilirubin Negative (Negative) 05/19/22 08:13 Urine Urobilinogen 0.2 mg/dL (0.2-1.0) 05/19/22 08:13 Ur Leukocyte Esterase 1+ (Negative) H 05/19/22 08:13 Urine RBC <5 /HPF (None Seen) 05/19/22 08:13 Urine Red Cell Clumps Cancelled 05/19/22 04:50 Urine WBC >50 /HPF (<5) H 05/19/22 08:13 Urine WBC Clumps Few /HPF (None Seen) H 05/19/22 08:13 Ur Squamous Epith Cells <5 /HPF (None Seen) 05/19/22 08:13 U Non-Squamous Epi Cells Cancelled 05/19/22 04:50 Ur Transition Epith Cell Cancelled 05/19/22 04:50 Ur Renal Epithelial Cell Cancelled 05/19/22 04:50 Calcium Carbonate Cryst Cancelled 05/19/22 04:50 Calcium Oxalate Crystal Cancelled 05/19/22 04:50 Leucine Crystals Cancelled 05/19/22 04:50 Cystine Crystals Cancelled 05/19/22 04:50 Uric Acid Crystals Cancelled 05/19/22 04:50 Triple Phos Crystals Cancelled 05/19/22 04:50 Tyrosine Crystals Cancelled 05/19/22 04:50 Unidentified Crystals Cancelled 05/19/22 04:50 Amorphous Crystals Cancelled 05/19/22 04:50 Urine Bacteria 20-50 /HPF (<20) H 05/19/22 08:13 Hyaline Casts Cancelled 05/19/22 04:50 Granular Casts Cancelled 05/19/22 04:50 Waxy Casts Cancelled 05/19/22 04:50 RBC Casts Cancelled 05/19/22 04:50 WBC Casts Cancelled 05/19/22 04:50 Urine Mucus Slight /HPF (None Seen) 05/19/22 08:13 Urine Trichomonas Present /HPF (None Seen) H 05/19/22 08:13 Ur Yeast w Hyphae Cancelled 05/19/22 04:50 Urine Yeast (Budding) Cancelled 05/19/22 04:50 Urine Sperm Cancelled 05/19/22 04:50 Ur Oval Fat Bodies Cancelled 05/19/22 04:50 Ur Microscopic Review Cancelled 05/19/22 04:50 Urine Total Protein Negative (Negative) 05/19/22 08:13 Urine Ascorbic Acid Cancelled 05/19/22 04:50 Urine Fat Cancelled 05/19/22 04:50 SARS-CoV-2 Rap RNA(RT-PCR) Negative (NEGATIVE) 05/24/22 13:20 Weight: 236 lb 3.2 oz Wound Present: No Closed Surgical Incision Present: Yes Negative Pressure Wound Therapy Present: No Physician Update: Mod I with bed mobility, sit to stand, 250' with left hand HW. Up 2-3 steps with HW. E-stim is done, supervision with shower, toileting independent. On nectar thick liquids, may repeat MBS per speech. Summary: Patient's care plan and skilled nursing goals have been reviewed and revised as necessary. Please see the Rehabilitation Signature page for all necessary si gnatures.
[2022-05-26] MEDS: DOCUSATE NA 100 MG CAP PO SCH ×2 (10:12→19:54)
[2022-05-26] MEDS: METFORMIN ER 500 MG TAB PO SCH ×2 (10:12→17:19)
[2022-05-26] MEDS: ENOXAPARIN 40 MG/0.4 ML SQ SCH (10:12)
[2022-05-26] MEDS: CRANBERRY FRUIT EXTRACT 200 MG CAP PO SCH ×2 (10:12→19:53)
[2022-05-26] MEDS: ASPIRIN EC 81 MG TAB PO SCH (10:13)
[2022-05-26] MEDS: GLIMEPIRIDE 2 MG TABLET PO SCH (10:13)
[2022-05-26] MEDS: LOSARTAN POTASSIUM 50 MG TABLET PO SCH ×2 (10:13→19:53)
[2022-05-26] MEDS: CLOPIDOGREL 75 MG TABLET PO SCH (10:13)
[2022-05-26] MEDS: FOLIC ACID 1 MG TABLET PO SCH (10:13)
[2022-05-26] MEDS: NYSTATIN PWDR 100000 UNIT/GM TOP SCH ×2 (10:14→19:53)
[2022-05-26] MEDS: MAGNESIUM OXIDE 400 MG TAB PO SCH ×2 (10:14→19:54)
[2022-05-26] MEDS: DOCUSATE NA/SENNA CONC 1 TAB PO PRN (19:53)
[2022-05-26] MEDS: ATORVASTATIN 40 MG TAB PO SCH (19:53)
[2022-05-27 07:01] VITALS: BP 117/66; TEMP 97.8
[2022-05-27] MEDS: INSULIN -REGULAR HUMAN 50 UNIT/0.5 ML ML SQ SCH ×2 (07:19→11:30)
[2022-05-27] MEDS: CRANBERRY FRUIT EXTRACT 200 MG CAP PO SCH (08:23)
[2022-05-27] MEDS: NYSTATIN PWDR 100000 UNIT/GM TOP SCH (08:23)
[2022-05-27] MEDS: METFORMIN ER 500 MG TAB PO SCH (08:24)
[2022-05-27] MEDS: MAGNESIUM OXIDE 400 MG TAB PO SCH (08:24)
[2022-05-27] MEDS: GLIMEPIRIDE 2 MG TABLET PO SCH (08:24)
[2022-05-27] MEDS: CLOPIDOGREL 75 MG TABLET PO SCH (08:24)
[2022-05-27] MEDS: FOLIC ACID 1 MG TABLET PO SCH (08:25)
[2022-05-27] MEDS: ASPIRIN EC 81 MG TAB PO SCH (08:25)
[2022-05-27] MEDS: DOCUSATE NA 100 MG CAP PO SCH (08:26)
[2022-05-27] MEDS: LOSARTAN POTASSIUM 50 MG TABLET PO SCH (08:26)
[2022-05-27] MEDS: ENOXAPARIN 40 MG/0.4 ML SQ SCH (08:34)
--- NOTE | 2022-05-27 11:38 | RAD REPORT ---
EXAM DESCRIPTION: RAD - Barium Swallow Modified - 05/27/2022 11:26 am CLINICAL HISTORY: dysphagia COMPARISON: Barium Swallow Modified dated 05/20/2022 TECHNIQUE: The patient was given liquid, semi-solid and solid forms of barium. Lateral view fluorosc opic imaging was performed in conjunction with speech pathology service. FINDINGS: Laryngeal penetration: not cleared with thin. Pharyngeal residue: vallecular- mild trace with all consistencies. thin, nectar and puree. dry solid whole barium pill w/ nectar. pyriform- trace with puree. Other: decreased hyoid excursion, decreased epiglottic deflection, muscular posterior pharyngeal wall protrusion anterior to CS, mild esophageal residue, pill lodged in superior esophagus until washed d own w/ puree. Total fluoroscopy time: 3:24
== END 2022-05-27 12:45 | disposition home health service (06) | DRG 56 ==
LOC: 5TH 05-13 15:50
PROVIDERS: ADMIT Hospitalist; ATTEND Psychiatry & Neurology Neurology with Special Qualifications in Child Neurology
DX: I69.354 Hemiplegia and hemiparesis following cerebral infarction affecting left non-dominant side (principal); J18.9 Pneumonia, unspecified organism; Z68.41 Body mass index [BMI] 40.0-44.9, adult; N39.0 Urinary tract infection, site not specified; Z16.12 Extended spectrum beta lactamase (ESBL) resistance; E66.01 Morbid (severe) obesity due to excess calories; E11.9 Type 2 diabetes mellitus without complications; E78.5 Hyperlipidemia, unspecified; I10 Essential (primary) hypertension; C50.919 Malignant neoplasm of unspecified site of unspecified female breast; B96.20 Unspecified Escherichia coli [E. coli] as the cause of diseases classified elsewhere; L29.9 Pruritus, unspecified; T36.0X5A Adverse effect of penicillins, initial encounter; Y92.230 Patient room in hospital as the place of occurrence of the external cause; Z90.13 Acquired absence of bilateral breasts and nipples; Z20.822 Contact with and (suspected) exposure to COVID-19
CPT/HCPCS: 36415; 71045; 74230; 80048; 80053; 81001; 82040; 82150; 82248; 82947; 83605; 83690; 83735; 84134; 85025; 85610; 85730; 87040; 87077; 87086; 87088; 87186; 92526; 92611; 94010; 97110; 97112; 97116; 97161; 97165; 97530; 97542; J1650; J1815; J2185; J2543; J7050; U0003

== ENCOUNTER 2022-11-02 21:32 | Inpatient (IN) | payer MEDICARE, OTHER ==
--- OUTSIDE RECORDS SUMMARY | 2022-11-02 21:35 | XMS REPORT | Clinical Summary ---
:1955 Author Organization [facility] MD [facility] Address [address] [place] [address] Care Team Providers Name Role Phone Unavailable Primary Care Provider Unavailable Allergies Not on File Medications Not on file Active Problems Not on file Encounters Date Type Specialty Care Team Description 06/14/2022 Travel 06/02/2022 Travel after 11/02/2021 Social History Tobacco Use Types Packs/Day Years Used Date Smoking Tobacco: Never Assessed Sex Assigned at Date Recorded Not on file Job Start Date Occupation Industry Not on file Not on file Not on file Last Filed Vital Signs Not on file Plan of Treatment Not on file Results Not on fileafter 11/02/2021 Insurance Payer Benefit Plan / Subscriber ID Effective Dates Phone Addre ss Type Group HUMANA HUMANA GOLD [id number] 2021-[place] [address] [address] Medicare MEDICARE PLUS MEDICARE [facility] [id number]
[2022-11-02] MEDS ORDERED: TENECTEPLASE 50 MG/10 ML VIAL IV ONE (21:47)
--- NOTE | 2022-11-02 21:56 | RAD REPORT ---
EXAM DESCRIPTION: CT - Ct Stroke Brain Wo Cont - 11/02/2022 9:46 pm CLINICAL HISTORY: LLE weakness and numbness COMPARISON: Head angio dated 05/09/2022; Ct Stroke Brain Wo Cont dated 05/09/2022 TECHNIQUE: All CT scans are performed using dose optimization technique as appropriate and may inclu de automated exposure control or mA/KV adjustment according to patient size. FINDINGS: Remote right posterior frontal parietal lobe infarct. Mild chronic small vessel ischemic c hanges.No areas of brain edema or evidence of midline shift. The paranasal sinuses and mastoids are clear. The calvarium is intact. IMPRESSION: No acute intracranial abnormality. Remote right frontoparietal infarct. Discussed with Dr. Mckeon by Dr. Weir at 215 on 11/02/21
[2022-11-02 22:17] LABS: Hematocrit 31.6 % (36.0-45.0); Lymphocytes % 14.5 % (15.3-44.8); MCV 89.2 fL (80-100); MPV 11.1 fL (7.6-11.3); RBC Red Blood Cell Count 3.55 M/uL (3.86-4.86)
--- NOTE | 2022-11-02 22:19 | RAD REPORT ---
EXAM DESCRIPTION: RAD - Chest Single View - 11/02/2022 10:07 pm CLINICAL HISTORY: LLE weakness, possible CVA COMPARISON: Chest Single View dated 05/18/2022; Chest Single View dated 05/11/2022; Chest Single View dated 05/09/2022; Chest Pa And Lat (2 Views) dated 05/03/2022 FINDINGS: Lines: None. Lungs: Chronically coarsened interstitium. No evidence of a new superimposed acute process . Pleural: No significant pleural effusions or pneumothorax. Cardiac: The heart size is within normal limits. Mediastinum: Within normal limits. Bones: No acute fractures. Other: Surgical clips in both axillas. IMPRESSION: No acute cardiopulmonary disease.
[2022-11-02 22:25] LABS: Troponin High Sensitivity 11.8 pg/mL (<58.9)
--- NOTE | 2022-11-02 22:39 | EDPHYS ---
Physician Documentation [facility] Name: Maritza Jackson Age: 67 yrs Sex: Female : 1955 Arrival Date: 11/02/2022 Time: 21:36 Bed 6 Private MD: ED Physician Sacha Mckeon HPI: 11/02 21:44 This 67 yrs old Female presents to ER via EMS with complaints of left leg rn weakness and numbness. 21:44 The patient presents to the emergency department with weakness of the left lower rn extremity, paresthesias of the left lower extremity. Onset: The symptoms/episode began/occurred 1 hour(s) ago. Associated signs and symptoms: Pertinent positives: paresthesias, weakness, Pertinent negatives: fever, headache, seizure, syncope, blurred vision, double vision, visual field changes, loss of vision. Severity of symptoms: At their worst the symptoms were moderate in the emergency department the symptoms are unchanged. Current symptoms: Currently, the patient is not experiencing any symptoms. The patient has not experienced similar symptoms in the past. The patient has been recently seen by a physician:. Pt with breast cancer, actively receiving chemotherapy, 1 hour prior to arrival had sudden onset LLE weakness, unable to walk and cannot feel left leg. No trauma or fall. Has had CVA in past, takes plavix. No recent surgery. No active bleeding.. Historical: - Allergies: 21:36 Pineapple; as6 - PMHx: 21:36 diabetes mellitus; Hypercholesterolemia; Hypertensive disorder; as6 - Immunization history:: Adult Immunizations up to date. - Family history:: not pertinent. - Social history:: Smoking status: unknown. - Hospitalizations: : No recent hospitalization is reported. ROS: 21:44 Constitutional: Negative for fever, chills, and weight loss, Cardiovascular: Negative rn for chest pain, palpitations, and edema, Respiratory: Negative for shortness of breath, cough, wheezing, and pleuritic chest pain, Abdomen/GI: Negative for abdominal pain, nausea, vomiting, diarrhea, and constipation, Back: Negative for injury and pain, MS/Extremity: + weakness and numbness to LLE Skin: Negative for injury, rash, and discoloration, Neuro: + weakness and numb to LLE Exam: 21:44 Constitutional: This is a well developed, well nourished patient who is awake, alert, rn and in no acute distress. Head/Face: Normocephalic, atraumatic. Eyes: Pupils equal round and reactive to light, extra-ocular motions intact. Cardiovascular: Regular rate and rhythm. No pulse deficits. Respiratory: No increased work of breathing, no retractions or nasal flaring. Abdomen/GI: Soft, non-tender Skin: Warm, dry with normal turgor. Normal color with no rashes, no lesions, and no evidence of cellulitis. MS/ Extremity: Pulses equal, no cyanosis. Neuro: Awake and alert, GCS 15, oriented to person, place, time, and situation. Cranial nerves II-XII grossly intact. + 3+/5 strength LLE that falls to bed within 3 seconds. + decreased sensation to LLE. Cerebellar exam normal. 22:09 ECG was reviewed by the Attending Physician. rn Vital Signs: 21:38 BP 124 / 62; Pulse 78; Resp 13 S; Pulse Ox 96% on R/A; Weight 96.16 kg (M); Height 5 as6 ft. 3 in. (160.02 cm); 21:40 Temp 98.1(TE); as6 21:58 BP 124 / 62; Pulse 93; Resp 19; Pulse Ox 94% on R/A; kd3 22:18 BP 107 / 75; Pulse 66; Resp 17; Pulse Ox 95% on R/A; kd3 22:25 BP 107 / 75; Pulse 80; Resp 16 S; Pulse Ox 94% on R/A; as6 22:27 BP 93 / 63; Pulse 75; Resp 19; Pulse Ox 93% on R/A; kd3 23:21 BP 111 / 73; Pulse 66; Resp 16; Pulse Ox 98% ; kd3 01/12 00:00 BP 97 / 65; Pulse 67; Resp 18; Pulse Ox 100% ; kd3 01:00 BP 99 / 65; Pulse 64; Resp 17; Pulse Ox 100% ; kd3 01:30 BP 83 / 57; Pulse 59; Resp 19; Pulse Ox 100% ; kd3 02:00 BP 109 / 62; Pulse 64; Resp 17; Pulse Ox 100% on R/A; kd3 02:46 BP 88 / 66; Pulse 63; Resp 18; Pulse Ox 95% on R/A; kd3 03:30 BP 114 / 66; Pulse 61; Resp 20; Pulse Ox 96% on R/A; kd3 04:15 BP 112 / 65; Pulse 69; Resp 16; Pulse Ox 92% on R/A; kd3 05:22 BP 92 / 81; Pulse 70; Resp 19; Pulse Ox 95% on R/A; kd3 06:21 BP 90 / 57; Pulse 57; Resp 15; Pulse Ox 94% on R/A; kd3 11/02 21:38 Body Mass Index 37.55 (96.16 kg, 160.02 cm) as6 NIH Stroke Scale Scores: 11/02 21:44 NIHSS Score: 3 rn 21:48 NIHSS Score: 3 kd3 21:48 NIHSS Score: 3 kd3 22:45 NIHSS Score: 3 kd3 23:38 NIHSS Score: 1 kd3 11/03 00:40 NIHSS Score: 1 kd3 01:35 NIHSS Score: 1 kd3 02:15 NIHSS Score: 1 kd3 03:30 NIHSS Score: 1 kd3 04:41 NIHSS Score: 1 kd3 05:10 NIHSS Score: 1 kd3 MDM: 11/02 21:37 Patient medically screened. rn 21:44 Data reviewed: vital signs, nurses notes, old medical records. rn 21:52 ED course: Pt with NIH score of 3, unable to walk, sudden onset, hx of CVA 6 months rn ago, meets criteria for TNK and no absolute contraindications to TNK. Pt consented and will receive TNKase. . 21:53 ED course: CT no acute findings per Dr. Weir, radiologist.. rn 22:02 ED course: TNKase administered at 2158. rn 22:02 Counseling: I had a detailed discussion with the patient and/or guardian regarding: the rn historical points, exam findings, and any diagnostic results supporting the discharge/admit diagnosis, radiology results, the need for further work-up and treatment in the hospital. 22:36 Consideration of Admission/Observation Patient was admitted/placed on observation. rn Discussion of test interpretation with radiology: I had a discussion with radiology regarding a test interpretation. Discussed CT head without Dr. Weir the radiologist. CTA pending.. Response to treatment: the patient's symptoms have mildly improved after treatment, and as a result, I will admit patient. 22:36 Care significantly affected by the following chronic conditions: Diabetes, rn Hypertension, Cancer, HLD, current chemotherapy. 11/03 03:03 ED course: Pt now reports complete resolution of LLE symptoms. . rn 11/02 21:38 Order name: Basic Metabolic Panel; Complete Time: 22:38 rn 11/02 21:38 Order name: CBC with Diff; Complete Time: 23:10 rn 11/02 21:38 Order name: High Sensitivity Troponin; Complete Time: 22:38 rn 11/02 21:38 Order name: Protime (+inr); Complete Time: 23:10 rn 11/02 21:38 Order name: Ptt, Activated; Complete Time: 23:10 rn 11/02 22:20 Order name: Manual Differential; Complete Time: 23:10 EDMS 11/02 22:39 Order name: SARS RAPID; Complete Time: 00:12 rn 11/03 05:33 Order name: CBC with Automated Diff; Complete Time: 05:37 EDMS 11/03 05:41 Order name: Basic Metabolic Panel EDMS 11/03 05:41 Order name: Lipid Profile EDMS 11/03 05:41 Order name: C-Reactive Protein EDMS 11/03 05:41 Order name: Magnesium EDMS 11/03 05:52 Order name: Hemoglobin A1c EDMS 11/03 07:53 Order name: Glucose, Ancillary Testing EDMS 11/02 21:38 Order name: CT Stroke Brain w/o Contrast rn 11/02 21:38 Order name: Stroke CXR 1 View; Complete Time: 22:38 rn 11/02 21:38 Order name: EKG; Complete Time: 21:38 rn 11/02 21:38 Order name: Accucheck; Complete Time: 22:13 rn 11/02 21:38 Order name: Cardiac monitoring; Complete Time: 21:40 rn 11/02 21:38 Order name: EKG - Nurse/Tech; Complete Time: 22:06 rn 11/02 21:38 Order name: Head Angio CT rn 11/02 21:38 Order name: Neck Angio CT; Complete Time: 23:32 rn 11/02 21:42 Order name: Ct Stroke Brain Wo Cont; Complete Time: 22:11 EDMS 11/02 21:47 Order name: Head angio; Complete Time: 23:32 EDMS 11/03 11:43 Order name: MRI EDMS 11/03 11:47 Order name: MRI EDMS 11/03 11:48 Order name: MRI EDMS 11/02 21:38 Order name: IV Saline Lock; Complete Time: 22:06 rn 11/02 21:38 Order name: Labs collected and sent; Complete Time: 22:06 rn 11/02 21:38 Order name: NPO; Complete Time: 21:40 rn 11/02 21:38 Order name: O2 Per Protocol; Complete Time: 21:40 rn 11/02 21:38 Order name: O2 Sat Monitoring; Complete Time: 21:40 rn 11/02 21:38 Order name: Stroke Swallow Screen; Complete Time: 22:13 rn EC/11 22:09 Rate is 66 beats/min. Rhythm is regular. QRS Nixon is Normal. IN interval is normal. QRS rn interval is normal. QT interval is normal. No Q waves. T waves are Normal. No ST changes noted. Clinical impression: Normal ECG. Interpreted by me. Reviewed by me. Administered Medications: 21:58 Drug: TNK FOR STROKE - Tenecteplase 0.25 mg/kg {Co-Signature: kd3 (Elzbieta Alba as6 RN).} Route: IV; Rate: per protocol; Site: left antecubital; 11/03 03:30 Follow up: IV Status: Completed infusion kd3 11/02 23:29 Drug: foLIC Acid 1 mg Route: IVPB; Site: left antecubital; kd3 11/03 03:30 Follow up: IV Status: Completed infusion; IV Intake: 100ml kd3 03:30 Drug: NS 0.9% 500 ml Route: IV; Rate: bolus; Site: left antecubital; kd3 05:22 Follow up: IV Status: Completed infusion; IV Intake: 500ml kd3 Point of Care Testing: Blood Glucose: 11/02 21:36 Blood Glucose: 279 mg/dL; as6 Ranges: Critical Glucose Levels:Adult <50 mg/dl or >400 mg/dl <40 mg/dl or >180 mg/dl Disposition Summary: 11/02/22 22:38 Hospitalization Ordered Hospitalization Status: Inpatient Admission rn Provider: Ramona Mchugh rn Condition: Stable rn Problem: new rn Symptoms: have improved rn Bed/Room Type: Standard rn Location: Intensive Care Unit(11/03/22 15:02) Room Assignment: 7-(11/03/22 15:02) dw Diagnosis - Cerebral infarction, unspecified rn - Weakness rn - Paresthesia of skin rn Forms: - Medication Reconciliation Form rn - SBAR form rn new grad time excluding procedures: 22:36 Critical care time: Bedside Care: 35 minutes. Total time: 35 minutes rn NIH Stroke Scale - NIH Stroke Score Date: 11/02/2022 Time: 21:44 Total Score = 3 1a. Level of Consciousness (LOC) - 0(Alert) 1b. Level of Consciousness (LOC) (Month \T\ Age) - 0(Both) 1c. LOC Commands (Open \T\ Closes Eyes/Auger Machine Offbearer) - 0(Both) 2. Best Gaze (Lateral Gaze Paresis) - 0(Normal) 3. Visual Field Loss - 0(No visual loss) 4. Facial Palsy - 0(Normal) 5a. Left Arm: Motor (10-second hold) - 0(No drift) 5b. Right Arm: Motor (10-second hold) - 0(No drift) 6a. Left Leg: Motor (5-second hold - always test supine) - 2(Drift, some effort against gravity) 6b. Right Leg: Motor (5-second hold - always test supine) - 0(No drift) 7. Limb Ataxia (finger/nose \T\ heel/armstrong - test with eyes open) - 0(Absent) 8. Sensory Loss (pinprick arms/legs/face) - 1(Mild to moderate loss) 9. Best Language: Aphasia (description/naming/reading) - 0(No aphasia) 10. Dysarthria (speech clarity - read or repeat words) - 0(Normal) 11. Extinction and Inattention (visual/tactile/auditory/spatial/personal) - 0(No abnormality) Initials: rn NIH Stroke Scale - NIH Stroke Score Date: 11/02/2022 Time: 21:48 Total Score = 3 1a. Level of Consciousness (LOC) - 0(Alert) 1b. Level of Consciousness (LOC) (Month \T\ Age) - 0(Both) 1c. LOC Commands (Open \T\ Closes Eyes/Auger Machine Offbearer) - 0(Both) 2. Best Gaze (Lateral Gaze Paresis) - 0(Normal) 3. Visual Field Loss - 0(No visual loss) 4. Facial Palsy - 0(Normal) 5a. Left Arm: Motor (10-second hold) - 0(No drift) 5b. Right Arm: Motor (10-second hold) - 0(No drift) 6a. Left Leg: Motor (5-second hold - always test supine) - 1(Drift) 6b. Right Leg: Motor (5-second hold - always test supine) - 0(No drift) 7. Limb Ataxia (finger/nose \T\ heel/armstrong - test with eyes open) - 0(Absent) 8. Sensory Loss (pinprick arms/legs/face) - 2(Severe to total loss) 9. Best Language: Aphasia (description/naming/reading) - 0(No aphasia) 10. Dysarthria (speech clarity - read or repeat words) - 0(Normal) 11. Extinction and Inattention (visual/tactile/auditory/spatial/personal) - 0(No abnormality) Initials: 3 NIH Stroke Scale - NIH Stroke Score Date: 11/02/2022 Time: 21:48 Total Score = 3 1a. Level of Consciousness (LOC) - 0(Alert) 1b. Level of Consciousness (LOC) (Month \T\ Age) - 0(Both) 1c. LOC Commands (Open \T\ Closes Eyes/Auger Machine Offbearer) - 0(Both) 2. Best Gaze (Lateral Gaze Paresis) - 0(Normal) 3. Visual Field Loss - 0(No visual loss) 4. Facial Palsy - 0(Normal) 5a. Left Arm: Motor (10-second hold) - 0(No drift) 5b. Right Arm: Motor (10-second hold) - 0(No drift) 6a. Left Leg: Motor (5-second hold - always test supine) - 1(Drift) 6b. Right Leg: Motor (5-second hold - always test supine) - 0(No drift) 7. Limb Ataxia (finger/nose \T\ heel/armstrong - test with eyes open) - 0(Absent) 8. Sensory Loss (pinprick arms/legs/face) - 2(Severe to total loss) 9. Best Language: Aphasia (description/naming/reading) - 0(No aphasia) 10. Dysarthria (speech clarity - read or repeat words) - 0(Normal) 11. Extinction and Inattention (visual/tactile/auditory/spatial/personal) - 0(No abnormality) Initials: 3 NIH Stroke Scale - NIH Stroke Score Date: 11/02/2022 Time: 22:45 Total Score = 3 1a. Level of Consciousness (LOC) - 0(Alert) 1b. Level of Consciousness (LOC) (Month \T\ Age) - 0(Both) 1c. LOC Commands (Open \T\ Closes Eyes/Auger Machine Offbearer) - 0(Both) 2. Best Gaze (Lateral Gaze Paresis) - 0(Normal) 3. Visual Field Loss - 0(No visual loss) 4. Facial Palsy - 0(Normal) 5a. Left Arm: Motor (10-second hold) - 0(No drift) 5b. Right Arm: Motor (10-second hold) - 0(No drift) 6a. Left Leg: Motor (5-second hold - always test supine) - 1(Drift) 6b. Right Leg: Motor (5-second hold - always test supine) - 0(No drift) 7. Limb Ataxia (finger/nose \T\ heel/armstrong - test with eyes open) - 0(Absent) 8. Sensory Loss (pinprick arms/legs/face) - 2(Severe to total loss) 9. Best Language: Aphasia (description/naming/reading) - 0(No aphasia) 10. Dysarthria (speech clarity - read or repeat words) - 0(Normal) 11. Extinction and Inattention (visual/tactile/auditory/spatial/personal) - 0(No abnormality) Initials: kd3 NIH Stroke Scale - NIH Stroke Score Date: 11/02/2022 Time: 23:38 Total Score = 1 1a. Level of Consciousness (LOC) - 0(Alert) 1b. Level of Consciousness (LOC) (Month \T\ Age) - 0(Both) 1c. LOC Commands (Open \T\ Closes Eyes/Auger Machine Offbearer) - 0(Both) 2. Best Gaze (Lateral Gaze Paresis) - 0(Normal) 3. Visual Field Loss - 0(No visual loss) 4. Facial Palsy - 0(Normal) 5a. Left Arm: Motor (10-second hold) - 0(No drift) 5b. Right Arm: Motor (10-second hold) - 0(No drift) 6a. Left Leg: Motor (5-second hold - always test supine) - 1(Drift) 6b. Right Leg: Motor (5-second hold - always test supine) - 0(No drift) 7. Limb Ataxia (finger/nose \T\ heel/armstrong - test with eyes open) - 0(Absent) 8. Sensory Loss (pinprick arms/legs/face) - 0(Normal) 9. Best Language: Aphasia (description/naming/reading) - 0(No aphasia) 10. Dysarthria (speech clarity - read or repeat words) - 0(Normal) 11. Extinction and Inattention (visual/tactile/auditory/spatial/personal) - 0(No abnormality) Initials: kd3 NIH Stroke Scale - NIH Stroke Score Date: 11/03/2022 Time: 00:40 Total Score = 1 1a. Level of Consciousness (LOC) - 0(Alert) 1b. Level of Consciousness (LOC) (Month \T\ Age) - 0(Both) 1c. LOC Commands (Open \T\ Closes Eyes/Auger Machine Offbearer) - 0(Both) 2. Best Gaze (Lateral Gaze Paresis) - 0(Normal) 3. Visual Field Loss - 0(No visual loss) 4. Facial Palsy - 0(Normal) 5a. Left Arm: Motor (10-second hold) - 0(No drift) 5b. Right Arm: Motor (10-second hold) - 0(No drift) 6a. Left Leg: Motor (5-second hold - always test supine) - 0(No drift) 6b. Right Leg: Motor (5-second hold - always test supine) - 0(No drift) 7. Limb Ataxia (finger/nose \T\ heel/armstrong - test with eyes open) - 0(Absent) 8. Sensory Loss (pinprick arms/legs/face) - 1(Mild to moderate loss) 9. Best Language: Aphasia (description/naming/reading) - 0(No aphasia) 10. Dysarthria (speech clarity - read or repeat words) - 0(Normal) 11. Extinction and Inattention (visual/tactile/auditory/spatial/personal) - 0(No abnormality) Initials: kd3 NIH Stroke Scale - NIH Stroke Score Date: 11/03/2022 Time: 01:35 Total Score = 1 1a. Level of Consciousness (LOC) - 0(Alert) 1b. Level of Consciousness (LOC) (Month \T\ Age) - 0(Both) 1c. LOC Commands (Open \T\ Closes Eyes/Auger Machine Offbearer) - 0(Both) 2. Best Gaze (Lateral Gaze Paresis) - 0(Normal) 3. Visual Field Loss - 0(No visual loss) 4. Facial Palsy - 0(Normal) 5a. Left Arm: Motor (10-second hold) - 0(No drift) 5b. Right Arm: Motor (10-second hold) - 0(No drift) 6a. Left Leg: Motor (5-second hold - always test supine) - 0(No drift) 6b. Right Leg: Motor (5-second hold - always test supine) - 0(No drift) 7. Limb Ataxia (finger/nose \T\ heel/armstrong - test with eyes open) - 0(Absent) 8. Sensory Loss (pinprick arms/legs/face) - 1(Mild to moderate loss) 9. Best Language: Aphasia (description/naming/reading) - 0(No aphasia) 10. Dysarthria (speech clarity - read or repeat words) - 0(Normal) 11. Extinction and Inattention (visual/tactile/auditory/spatial/personal) - 0(No abnormality) Initials: kd3 NIH Stroke Scale - NIH Stroke Score Date: 11/03/2022 Time: 02:15 Total Score = 1 1a. Level of Consciousness (LOC) - 0(Alert) 1b. Level of Consciousness (LOC) (Month \T\ Age) - 0(Both) 1c. LOC Commands (Open \T\ Closes Eyes/Auger Machine Offbearer) - 0(Both) 2. Best Gaze (Lateral Gaze Paresis) - 0(Normal) 3. Visual Field Loss - 0(No visual loss) 4. Facial Palsy - 0(Normal) 5a. Left Arm: Motor (10-second hold) - 0(No drift) 5b. Right Arm: Motor (10-second hold) - 0(No drift) 6a. Left Leg: Motor (5-second hold - always test supine) - 0(No drift) 6b. Right Leg: Motor (5-second hold - always test supine) - 0(No drift) 7. Limb Ataxia (finger/nose \T\ heel/armstrong - test with eyes open) - 0(Absent) 8. Sensory Loss (pinprick arms/legs/face) - 1(Mild to moderate loss) 9. Best Language: Aphasia (description/naming/reading) - 0(No aphasia) 10. Dysarthria (speech clarity - read or repeat words) - 0(Normal) 11. Extinction and Inattention (visual/tactile/auditory/spatial/personal) - 0(No abnormality) Initials: kd3 NIH Stroke Scale - NIH Stroke Score Date: 11/03/2022 Time: 03:30 Total Score = 1 1a. Level of Consciousness (LOC) - 0(Alert) 1b. Level of Consciousness (LOC) (Month \T\ Age) - 0(Both) 1c. LOC Commands (Open \T\ Closes Eyes/Auger Machine Offbearer) - 0(Both) 2. Best Gaze (Lateral Gaze Paresis) - 0(Normal) 3. Visual Field Loss - 0(No visual loss) 4. Facial Palsy - 0(Normal) 5a. Left Arm: Motor (10-second hold) - 0(No drift) 5b. Right Arm: Motor (10-second hold) - 0(No drift) 6a. Left Leg: Motor (5-second hold - always test supine) - 0(No drift) 6b. Right Leg: Motor (5-second hold - always test supine) - 0(No drift) 7. Limb Ataxia (finger/nose \T\ heel/armstrong - test with eyes open) - 0(Absent) 8. Sensory Loss (pinprick arms/legs/face) - 1(Mild to moderate loss) 9. Best Language: Aphasia (description/naming/reading) - 0(No aphasia) 10. Dysarthria (speech clarity - read or repeat words) - 0(Normal) 11. Extinction and Inattention (visual/tactile/auditory/spatial/personal) - 0(No abnormality) Initials: kd3 NIH Stroke Scale - NIH Stroke Score Date: 11/03/2022 Time: 04:41 Total Score = 1 1a. Level of Consciousness (LOC) - 0(Alert) 1b. Level of Consciousness (LOC) (Month \T\ Age) - 0(Both) 1c. LOC Commands (Open \T\ Closes Eyes/Auger Machine Offbearer) - 0(Both) 2. Best Gaze (Lateral Gaze Paresis) - 0(Normal) 3. Visual Field Loss - 0(No visual loss) 4. Facial Palsy - 0(Normal) 5a. Left Arm: Motor (10-second hold) - 0(No drift) 5b. Right Arm: Motor (10-second hold) - 0(No drift) 6a. Left Leg: Motor (5-second hold - always test supine) - 0(No drift) 6b. Right Leg: Motor (5-second hold - always test supine) - 0(No drift) 7. Limb Ataxia (finger/nose \T\ heel/armstrong - test with eyes open) - 0(Absent) 8. Sensory Loss (pinprick arms/legs/face) - 1(Mild to moderate loss) 9. Best Language: Aphasia (description/naming/reading) - 0(No aphasia) 10. Dysarthria (speech clarity - read or repeat words) - 0(Normal) 11. Extinction and Inattention (visual/tactile/auditory/spatial/personal) - 0(No abnormality) Initials: kd3 NIH Stroke Scale - NIH Stroke Score Date: 11/03/2022 Time: 05:10 Total Score = 1 1a. Level of Consciousness (LOC) - 0(Alert) 1b. Level of Consciousness (LOC) (Month \T\ Age) - 0(Both) 1c. LOC Commands (Open \T\ Closes Eyes/Auger Machine Offbearer) - 0(Both) 2. Best Gaze (Lateral Gaze Paresis) - 0(Normal) 3. Visual Field Loss - 0(No visual loss) 4. Facial Palsy - 0(Normal) 5a. Left Arm: Motor (10-second hold) - 0(No drift) 5b. Right Arm: Motor (10-second hold) - 0(No drift) 6a. Left Leg: Motor (5-second hold - always test supine) - 0(No drift) 6b. Right Leg: Motor (5-second hold - always test supine) - 0(No drift) 7. Limb Ataxia (finger/nose \T\ heel/armstrong - test with eyes open) - 0(Absent) 8. Sensory Loss (pinprick arms/legs/face) - 1(Mild to moderate loss) 9. Best Language: Aphasia (description/naming/reading) - 0(No aphasia) 10. Dysarthria (speech clarity - read or repeat words) - 0(Normal) 11. Extinction and Inattention (visual/tactile/auditory/spatial/personal) - 0(No abnormality) Initials: kd3 Signatures: Dispatcher [employer] EDNE Jonna Matthews RN RN dw Nieto, Roman, MD MD rn Garcia, Cindy, RN RN cg Slawson, Ashby, RN RN as6 Elzbieta Alba RN RN kd3 Melia Ann PA-C PA-C sb4 Elzbieta Alba RN kd3 Corrections: (The following items were deleted from the chart) 11/03 01:42 11/02 22:38 Intensive Care Unit rn cg 11/03 01:42 11/02 22:38 rn cg 11/03 15:02 01:42 [facility] cg dw 15:02 01:42 [facility]- dw
--- NOTE | 2022-11-02 22:39 | ER ---
Nurse's Notes [facility] Name: Maritza Jackson Age: 67 yrs Sex: Female : 1955 Arrival Date: 11/02/2022 Time: 21:36 Bed 6 Private MD: Diagnosis: Cerebral infarction, unspecified;Weakness;Paresthesia of skin Presentation: 11/02 21:38 Chief complaint: EMS states: called out for left leg weakness. started at 2029. as6 Coronavirus screen: At this time, the client does not indicate any symptoms associated with coronavirus-19. Ebola Screen: No symptoms or risks identified at this time. Initial Sepsis Screen: Does the patient meet any 2 criteria? No. Patient's initial sepsis screen is negative. Does the patient have a suspected source of infection? No. Patient's initial sepsis screen is negative. Risk Assessment: Do you want to hurt yourself or someone else? Patient reports no desire to harm self or others. Onset of symptoms was November 02, 2022 at 20:30. 21:38 Method Of Arrival: EMS: [facility] as6 21:38 Acuity: MAYA 2 as6 22:12 An acute neurological deficit is present. The patients blood glucose was checked before as6 arriving to the hospital and was found to be normal. Triage Assessment: 21:48 The onset of the patients symptoms was November 02, 2022 at 20:00. Neuro: Reports kd3 numbness in left leg. 21:48 Pain: Denies pain. Cardiovascular: Patient's skin is warm and dry. Respiratory: Airway kd3 is patent Trachea midline Respiratory effort is even, unlabored, Respiratory pattern is regular, symmetrical. 21:49 General: Appears in no apparent distress. Behavior is calm, cooperative. kd3 21:49 The onset of the patients symptoms was. kd3 Stroke Activation: Symptom onset < 3 hours Physician: Stroke Attending; Name: ; Notified At: ; Arrived At: Physician: Chief Stroke Resident; Name: ; Notified At: ; Arrived At: Physician: Stroke Resident; Name: ; Notified At: ; Arrived At: Physician: ED Attending; Name: Dr. Mckeon; Notified At: 21:39; Arrived At: 21:39 Physician: ED Resident; Name: ; Notified At: ; Arrived At: Historical: - Allergies: 21:36 Pineapple; as6 - PMHx: 21:36 diabetes mellitus; Hypercholesterolemia; Hypertensive disorder; as6 - Immunization history:: Adult Immunizations up to date. - Family history:: not pertinent. - Social history:: Smoking status: unknown. - Hospitalizations: : No recent hospitalization is reported. Screenin:11 [facility] ED Fall Risk Assessment (Adult) History of falling in the last 3 months, as6 including since admission Yes- single mechanical fall (1 pt) Confusion or Disorientation No (0 pts) Intoxicated or Sedated No (0 pts) Impaired Gait No (0 pts) Mobility Assist Device Used No (0 pt) Altered Elimination No (0 pt) Score/Fall Risk Level 0 - 2 = Low Risk. Abuse screen: Denies threats or abuse. Denies injuries from another. Nutritional screening: No deficits noted. Tuberculosis screening: No symptoms or risk factors identified. 22:26 Patient has been NPO before screening. The patient is alert, able to follow commands. kd3 The patient does not exhibit slurred or garbled speech The patient is not exhibiting difficulty speaking. The patient does not exhibit difficulty understanding words. The patient is able to swallow own secretions with no drooling or need for suction. Patient tolerated one teaspoon of water. No drooling, immediate coughing, gurgling, or clearing of the throat was noted. The patient tolerated 90mL of water. No drooling, immediate coughing, gurgling, or clearing of the throat was noted. The patient passed the bedside swallow screening. Oral medications may be given as ordered. Contact Physician for further diet orders. Provider notified of bedside swallow screening results: Sacha Mckeon MD. Assessment: 21:45 TNKase (Tenecteplase) Screening: Indications: Definite evidence of stroke, ischemic, as6 embolic, or hypertensive: Yes. Treatment will start within 4.5 hours onset of symptoms: Yes. No evidence of intracranial hemorrhage or CT of head and no evidence of peripheral hemorrhage or recent CVA: Yes. Consent for thrombolytic therapy: Yes. 21:48 Pain: Denies pain. Neuro: Level of Consciousness is awake, alert, obeys commands, kd3 Oriented to person, place, time, situation. 22:26 Patient has been NPO before screening. The patient is alert, and able to follow kd3 commands. The patient does not exhibit slurred or garbled speech. The patient is not exhibiting difficulty speaking. The patient does not exhibit difficulty understanding words. The patient is able to swallow own secretions with no drooling or need for suction. Patient tolerated one teaspoon of water. No drooling, immediate coughing, gurgling, or clearing of the throat was noted. The patient tolerated 90mL of water. No drooling, immediate coughing, gurgling, or clearing of the throat was noted. The patient passed the bedside swallow screening. Oral medications may be given as ordered. Contact Physician for further diet orders. Provider notified of bedside swallow screening results: Sacha Mckeon MD. 22:26 VAN Scoring: Arm Drift: Patients demonstrates NO arm weakness. Patient is VAN Negative. kd3 Visual Disturbance: No visual disturbance noted. Aphasia: No aphasia noted. Neglect: No neglect noted. 22:52 General: Appears in no apparent distress. Behavior is calm, cooperative. Neuro: Level kd3 of Consciousness is awake, alert, obeys commands, Oriented to person, place, time, situation. Respiratory: Airway is patent Trachea midline Respiratory effort is even, unlabored, Respiratory pattern is regular, symmetrical. 23:38 Reassessment: No changes from previously documented assessment. Patient and/or family kd3 updated on plan of care and expected duration. Pain level reassessed. Patient is alert, oriented x 3, equal unlabored respirations, skin warm/dry/pink. 11/03 00:47 General: Appears in no apparent distress. comfortable, Behavior is calm, cooperative. kd3 Neuro: Level of Consciousness is awake, alert, obeys commands, Oriented to person, place, time, situation. Respiratory: Airway is patent Trachea midline Respiratory effort is even, unlabored, Respiratory pattern is regular, symmetrical. 01:15 General: Appears in no apparent distress. comfortable, Behavior is calm, cooperative. kd3 01:15 Neuro: Level of Consciousness is awake, alert, obeys commands, Oriented to person, kd3 place, time, situation. 02:20 Reassessment: Patient and/or family updated on plan of care and expected duration. Pain kd3 level reassessed. Patient is alert, oriented x 3, equal unlabored respirations, skin warm/dry/pink. Patient states feeling better. Patient states symptoms have improved. General: Appears in no apparent distress. comfortable. 03:17 Reassessment: No changes from previously documented assessment. Patient and/or family kd3 updated on plan of care and expected duration. Pain level reassessed. Patient is alert, oriented x 3, equal unlabored respirations, skin warm/dry/pink. General: Appears in no apparent distress. comfortable, Behavior is calm, cooperative, pt moved to a hospital bed . 04:38 General: Appears in no apparent distress. comfortable, Behavior is calm, cooperative. kd3 Pain: Denies pain. Neuro: Level of Consciousness is awake, alert, obeys commands, Oriented to person, place, time, situation. Cardiovascular: Patient's skin is warm and dry. Respiratory: Airway is patent Trachea midline Respiratory effort is even, unlabored, Respiratory pattern is regular, symmetrical. 05:10 Reassessment: No changes from previously documented assessment. Patient and/or family kd3 updated on plan of care and expected duration. Pain level reassessed. Patient is alert, oriented x 3, equal unlabored respirations, skin warm/dry/pink. Patient denies pain at this time. Neuro: Level of Consciousness is awake, alert, obeys commands, Oriented to person, place, time, situation. Vital Signs: 11/02 21:38 BP 124 / 62; Pulse 78; Resp 13 S; Pulse Ox 96% on R/A; Weight 96.16 kg (M); Height 5 as6 ft. 3 in. (160.02 cm); 21:40 Temp 98.1(TE); as6 21:58 BP 124 / 62; Pulse 93; Resp 19; Pulse Ox 94% on R/A; kd3 22:18 BP 107 / 75; Pulse 66; Resp 17; Pulse Ox 95% on R/A; kd3 22:25 BP 107 / 75; Pulse 80; Resp 16 S; Pulse Ox 94% on R/A; as6 22:27 BP 93 / 63; Pulse 75; Resp 19; Pulse Ox 93% on R/A; kd3 23:21 BP 111 / 73; Pulse 66; Resp 16; Pulse Ox 98% ; kd3 12 00:00 BP 97 / 65; Pulse 67; Resp 18; Pulse Ox 100% ; kd3 01:00 BP 99 / 65; Pulse 64; Resp 17; Pulse Ox 100% ; kd3 01:30 BP 83 / 57; Pulse 59; Resp 19; Pulse Ox 100% ; kd3 02:00 BP 109 / 62; Pulse 64; Resp 17; Pulse Ox 100% on R/A; kd3 02:46 BP 88 / 66; Pulse 63; Resp 18; Pulse Ox 95% on R/A; kd3 03:30 BP 114 / 66; Pulse 61; Resp 20; Pulse Ox 96% on R/A; kd3 04:15 BP 112 / 65; Pulse 69; Resp 16; Pulse Ox 92% on R/A; kd3 05:22 BP 92 / 81; Pulse 70; Resp 19; Pulse Ox 95% on R/A; kd3 06:21 BP 90 / 57; Pulse 57; Resp 15; Pulse Ox 94% on R/A; kd3 11/02 21:38 Body Mass Index 37.55 (96.16 kg, 160.02 cm) as6 NIH Stroke Scale Scores: 11/02 21:44 NIHSS Score: 3 rn 21:48 NIHSS Score: 3 kd3 21:48 NIHSS Score: 3 kd3 22:45 NIHSS Score: 3 kd3 23:38 NIHSS Score: 1 kd3 11/03 00:40 NIHSS Score: 1 kd3 01:35 NIHSS Score: 1 kd3 02:15 NIHSS Score: 1 kd3 03:30 NIHSS Score: 1 kd3 04:41 NIHSS Score: 1 kd3 05:10 NIHSS Score: 1 kd3 ED Course: 11/02 21:36 Patient arrived in ED. as6 21:37 Sacha Mckeon MD is Attending Physician. rn 21:37 Johnnie Rouse RN is Primary Nurse. as6 21:39 Triage completed. as6 21:40 Arm band placed on. as6 21:40 Inserted saline lock: 20 gauge in left antecubital area, using aseptic technique. Blood as6 collected. 21:48 Ct Stroke Brain Wo Cont In Process Unspecified. EDMS 22:09 Stroke CXR 1 View In Process Unspecified. EDMS 22:10 Bed in low position. Call light in reach. Side rails up X2. Client placed on continuous as6 cardiac and pulse oximetry monitoring. NIBP monitoring applied. Warm blanket given. 22:38 Ramona Mchugh MD is Hospitalizing Provider. rn 23:03 Head angio In Process Unspecified. EDMS 23:[address] In Process Unspecified. EDMS 01 00:47 Repositioned patient. Cleaned of incontinence. Linen changed. kd3 00:47 Patient maintains SpO2 saturation greater than 95% on room air. kd3 17:22 No provider procedures requiring assistance completed. Patient admitted, IV remains in ap3 place. Administered Medications: 11/02 21:58 Drug: TNK FOR STROKE - Tenecteplase 0.25 mg/kg {Co-Signature: kd3 (Elzbieta Alba as6 RN).} Route: IV; Rate: per protocol; Site: left antecubital; 11/03 03:30 Follow up: IV Status: Completed infusion kd3 11/02 23:29 Drug: foLIC Acid 1 mg Route: IVPB; Site: left antecubital; kd3 11/03 03:30 Follow up: IV Status: Completed infusion; IV Intake: 100ml kd3 03:30 Drug: NS 0.9% 500 ml Route: IV; Rate: bolus; Site: left antecubital; kd3 05:22 Follow up: IV Status: Completed infusion; IV Intake: 500ml kd3 Medication: 04:54 VIS not applicable for this client. kd3 Point of Care Testing: Blood Glucose: 11/02 21:36 Blood Glucose: 279 mg/dL; as6 Ranges: Intake: 11/03 03:30 IV: 100ml; Total: 100ml. kd3 05:22 IV: 500ml; Total: 600ml. kd3 Outcome: 11/02 22:38 Decision to Hospitalize by Provider. rn 11/03 17:23 Admitted to ICU accompanied by nurse, room icu 7, on monitor, with chart. ap3 Condition: good 17:30 Patient left the ED. ap3 NIH Stroke Scale - NIH Stroke Score Date: 11/02/2022 Time: 21:44 Total Score = 3 1a. Level of Consciousness (LOC) - 0(Alert) 1b. Level of Consciousness (LOC) (Month \T\ Age) - 0(Both) 1c. LOC Commands (Open \T\ Closes Eyes/Barrel Rifler Hook) - 0(Both) 2. Best Gaze (Lateral Gaze Paresis) - 0(Normal) 3. Visual Field Loss - 0(No visual loss) 4. Facial Palsy - 0(Normal) 5a. Left Arm: Motor (10-second hold) - 0(No drift) 5b. Right Arm: Motor (10-second hold) - 0(No drift) 6a. Left Leg: Motor (5-second hold - always test supine) - 2(Drift, some effort against gravity) 6b. Right Leg: Motor (5-second hold - always test supine) - 0(No drift) 7. Limb Ataxia (finger/nose \T\ heel/armstrong - test with eyes open) - 0(Absent) 8. Sensory Loss (pinprick arms/legs/face) - 1(Mild to moderate loss) 9. Best Language: Aphasia (description/naming/reading) - 0(No aphasia) 10. Dysarthria (speech clarity - read or repeat words) - 0(Normal) 11. Extinction and Inattention (visual/tactile/auditory/spatial/personal) - 0(No abnormality) Initials: rn NIH Stroke Scale - NIH Stroke Score Date: 11/02/2022 Time: 21:48 Total Score = 3 1a. Level of Consciousness (LOC) - 0(Alert) 1b. Level of Consciousness (LOC) (Month \T\ Age) - 0(Both) 1c. LOC Commands (Open \T\ Closes Eyes/Barrel Rifler Hook) - 0(Both) 2. Best Gaze (Lateral Gaze Paresis) - 0(Normal) 3. Visual Field Loss - 0(No visual loss) 4. Facial Palsy - 0(Normal) 5a. Left Arm: Motor (10-second hold) - 0(No drift) 5b. Right Arm: Motor (10-second hold) - 0(No drift) 6a. Left Leg: Motor (5-second hold - always test supine) - 1(Drift) 6b. Right Leg: Motor (5-second hold - always test supine) - 0(No drift) 7. Limb Ataxia (finger/nose \T\ heel/armstrong - test with eyes open) - 0(Absent) 8. Sensory Loss (pinprick arms/legs/face) - 2(Severe to total loss) 9. Best Language: Aphasia (description/naming/reading) - 0(No aphasia) 10. Dysarthria (speech clarity - read or repeat words) - 0(Normal) 11. Extinction and Inattention (visual/tactile/auditory/spatial/personal) - 0(No abnormality) Initials: kd3 NIH Stroke Scale - NIH Stroke Score Date: 11/02/2022 Time: 21:48 Total Score = 3 1a. Level of Consciousness (LOC) - 0(Alert) 1b. Level of Consciousness (LOC) (Month \T\ Age) - 0(Both) 1c. LOC Commands (Open \T\ Closes Eyes/Barrel Rifler Hook) - 0(Both) 2. Best Gaze (Lateral Gaze Paresis) - 0(Normal) 3. Visual Field Loss - 0(No visual loss) 4. Facial Palsy - 0(Normal) 5a. Left Arm: Motor (10-second hold) - 0(No drift) 5b. Right Arm: Motor (10-second hold) - 0(No drift) 6a. Left Leg: Motor (5-second hold - always test supine) - 1(Drift) 6b. Right Leg: Motor (5-second hold - always test supine) - 0(No drift) 7. Limb Ataxia (finger/nose \T\ heel/armstrong - test with eyes open) - 0(Absent) 8. Sensory Loss (pinprick arms/legs/face) - 2(Severe to total loss) 9. Best Language: Aphasia (description/naming/reading) - 0(No aphasia) 10. Dysarthria (speech clarity - read or repeat words) - 0(Normal) 11. Extinction and Inattention (visual/tactile/auditory/spatial/personal) - 0(No abnormality) Initials: kd3 NIH Stroke Scale - NIH Stroke Score Date: 11/02/2022 Time: 22:45 Total Score = 3 1a. Level of Consciousness (LOC) - 0(Alert) 1b. Level of Consciousness (LOC) (Month \T\ Age) - 0(Both) 1c. LOC Commands (Open \T\ Closes Eyes/Barrel Rifler Hook) - 0(Both) 2. Best Gaze (Lateral Gaze Paresis) - 0(Normal) 3. Visual Field Loss - 0(No visual loss) 4. Facial Palsy - 0(Normal) 5a. Left Arm: Motor (10-second hold) - 0(No drift) 5b. Right Arm: Motor (10-second hold) - 0(No drift) 6a. Left Leg: Motor (5-second hold - always test supine) - 1(Drift) 6b. Right Leg: Motor (5-second hold - always test supine) - 0(No drift) 7. Limb Ataxia (finger/nose \T\ heel/armstrong - test with eyes open) - 0(Absent) 8. Sensory Loss (pinprick arms/legs/face) - 2(Severe to total loss) 9. Best Language: Aphasia (description/naming/reading) - 0(No aphasia) 10. Dysarthria (speech clarity - read or repeat words) - 0(Normal) 11. Extinction and Inattention (visual/tactile/auditory/spatial/personal) - 0(No abnormality) Initials: kd3 NIH Stroke Scale - NIH Stroke Score Date: 11/02/2022 Time: 23:38 Total Score = 1 1a. Level of Consciousness (LOC) - 0(Alert) 1b. Level of Consciousness (LOC) (Month \T\ Age) - 0(Both) 1c. LOC Commands (Open \T\ Closes Eyes/Barrel Rifler Hook) - 0(Both) 2. Best Gaze (Lateral Gaze Paresis) - 0(Normal) 3. Visual Field Loss - 0(No visual loss) 4. Facial Palsy - 0(Normal) 5a. Left Arm: Motor (10-second hold) - 0(No drift) 5b. Right Arm: Motor (10-second hold) - 0(No drift) 6a. Left Leg: Motor (5-second hold - always test supine) - 1(Drift) 6b. Right Leg: Motor (5-second hold - always test supine) - 0(No drift) 7. Limb Ataxia (finger/nose \T\ heel/armstrong - test with eyes open) - 0(Absent) 8. Sensory Loss (pinprick arms/legs/face) - 0(Normal) 9. Best Language: Aphasia (description/naming/reading) - 0(No aphasia) 10. Dysarthria (speech clarity - read or repeat words) - 0(Normal) 11. Extinction and Inattention (visual/tactile/auditory/spatial/personal) - 0(No abnormality) Initials: kd3 NIH Stroke Scale - NIH Stroke Score Date: 11/03/2022 Time: 00:40 Total Score = 1 1a. Level of Consciousness (LOC) - 0(Alert) 1b. Level of Consciousness (LOC) (Month \T\ Age) - 0(Both) 1c. LOC Commands (Open \T\ Closes Eyes/Barrel Rifler Hook) - 0(Both) 2. Best Gaze (Lateral Gaze Paresis) - 0(Normal) 3. Visual Field Loss - 0(No visual loss) 4. Facial Palsy - 0(Normal) 5a. Left Arm: Motor (10-second hold) - 0(No drift) 5b. Right Arm: Motor (10-second hold) - 0(No drift) 6a. Left Leg: Motor (5-second hold - always test supine) - 0(No drift) 6b. Right Leg: Motor (5-second hold - always test supine) - 0(No drift) 7. Limb Ataxia (finger/nose \T\ heel/armstrong - test with eyes open) - 0(Absent) 8. Sensory Loss (pinprick arms/legs/face) - 1(Mild to moderate loss) 9. Best Language: Aphasia (description/naming/reading) - 0(No aphasia) 10. Dysarthria (speech clarity - read or repeat words) - 0(Normal) 11. Extinction and Inattention (visual/tactile/auditory/spatial/personal) - 0(No abnormality) Initials: kd3 NIH Stroke Scale - NIH Stroke Score Date: 11/03/2022 Time: : Total Score = 1 1a. Level of Consciousness (LOC) - 0(Alert) 1b. Level of Consciousness (LOC) (Month \T\ Age) - 0(Both) 1c. LOC Commands (Open \T\ Closes Eyes/Barrel Rifler Hook) - 0(Both) 2. Best Gaze (Lateral Gaze Paresis) - 0(Normal) 3. Visual Field Loss - 0(No visual loss) 4. Facial Palsy - 0(Normal) 5a. Left Arm: Motor (10-second hold) - 0(No drift) 5b. Right Arm: Motor (10-second hold) - 0(No drift) 6a. Left Leg: Motor (5-second hold - always test supine) - 0(No drift) 6b. Right Leg: Motor (5-second hold - always test supine) - 0(No drift) 7. Limb Ataxia (finger/nose \T\ heel/armstrong - test with eyes open) - 0(Absent) 8. Sensory Loss (pinprick arms/legs/face) - 1(Mild to moderate loss) 9. Best Language: Aphasia (description/naming/reading) - 0(No aphasia) 10. Dysarthria (speech clarity - read or repeat words) - 0(Normal) 11. Extinction and Inattention (visual/tactile/auditory/spatial/personal) - 0(No abnormality) Initials: kd3 NIH Stroke Scale - NIH Stroke Score Date: 11/03/2022 Time: 02:15 Total Score = 1 1a. Level of Consciousness (LOC) - 0(Alert) 1b. Level of Consciousness (LOC) (Month \T\ Age) - 0(Both) 1c. LOC Commands (Open \T\ Closes Eyes/Barrel Rifler Hook) - 0(Both) 2. Best Gaze (Lateral Gaze Paresis) - 0(Normal) 3. Visual Field Loss - 0(No visual loss) 4. Facial Palsy - 0(Normal) 5a. Left Arm: Motor (10-second hold) - 0(No drift) 5b. Right Arm: Motor (10-second hold) - 0(No drift) 6a. Left Leg: Motor (5-second hold - always test supine) - 0(No drift) 6b. Right Leg: Motor (5-second hold - always test supine) - 0(No drift) 7. Limb Ataxia (finger/nose \T\ heel/armstrong - test with eyes open) - 0(Absent) 8. Sensory Loss (pinprick arms/legs/face) - 1(Mild to moderate loss) 9. Best Language: Aphasia (description/naming/reading) - 0(No aphasia) 10. Dysarthria (speech clarity - read or repeat words) - 0(Normal) 11. Extinction and Inattention (visual/tactile/auditory/spatial/personal) - 0(No abnormality) Initials: kd3 NIH Stroke Scale - NIH Stroke Score Date: 11/03/2022 Time: 03:30 Total Score = 1 1a. Level of Consciousness (LOC) - 0(Alert) 1b. Level of Consciousness (LOC) (Month \T\ Age) - 0(Both) 1c. LOC Commands (Open \T\ Closes Eyes/Barrel Rifler Hook) - 0(Both) 2. Best Gaze (Lateral Gaze Paresis) - 0(Normal) 3. Visual Field Loss - 0(No visual loss) 4. Facial Palsy - 0(Normal) 5a. Left Arm: Motor (10-second hold) - 0(No drift) 5b. Right Arm: Motor (10-second hold) - 0(No drift) 6a. Left Leg: Motor (5-second hold - always test supine) - 0(No drift) 6b. Right Leg: Motor (5-second hold - always test supine) - 0(No drift) 7. Limb Ataxia (finger/nose \T\ heel/armstrong - test with eyes open) - 0(Absent) 8. Sensory Loss (pinprick arms/legs/face) - 1(Mild to moderate loss) 9. Best Language: Aphasia (description/naming/reading) - 0(No aphasia) 10. Dysarthria (speech clarity - read or repeat words) - 0(Normal) 11. Extinction and Inattention (visual/tactile/auditory/spatial/personal) - 0(No abnormality) Initials: kd3 NIH Stroke Scale - NIH Stroke Score Date: 11/03/2022 Time: 04:41 Total Score = 1 1a. Level of Consciousness (LOC) - 0(Alert) 1b. Level of Consciousness (LOC) (Month \T\ Age) - 0(Both) 1c. LOC Commands (Open \T\ Closes Eyes/Barrel Rifler Hook) - 0(Both) 2. Best Gaze (Lateral Gaze Paresis) - 0(Normal) 3. Visual Field Loss - 0(No visual loss) 4. Facial Palsy - 0(Normal) 5a. Left Arm: Motor (10-second hold) - 0(No drift) 5b. Right Arm: Motor (10-second hold) - 0(No drift) 6a. Left Leg: Motor (5-second hold - always test supine) - 0(No drift) 6b. Right Leg: Motor (5-second hold - always test supine) - 0(No drift) 7. Limb Ataxia (finger/nose \T\ heel/armstrong - test with eyes open) - 0(Absent) 8. Sensory Loss (pinprick arms/legs/face) - 1(Mild to moderate loss) 9. Best Language: Aphasia (description/naming/reading) - 0(No aphasia) 10. Dysarthria (speech clarity - read or repeat words) - 0(Normal) 11. Extinction and Inattention (visual/tactile/auditory/spatial/personal) - 0(No abnormality) Initials: kd3 NIH Stroke Scale - NIH Stroke Score Date: 11/03/2022 Time: 05:10 Total Score = 1 1a. Level of Consciousness (LOC) - 0(Alert) 1b. Level of Consciousness (LOC) (Month \T\ Age) - 0(Both) 1c. LOC Commands (Open \T\ Closes Eyes/Barrel Rifler Hook) - 0(Both) 2. Best Gaze (Lateral Gaze Paresis) - 0(Normal) 3. Visual Field Loss - 0(No visual loss) 4. Facial Palsy - 0(Normal) 5a. Left Arm: Motor (10-second hold) - 0(No drift) 5b. Right Arm: Motor (10-second hold) - 0(No drift) 6a. Left Leg: Motor (5-second hold - always test supine) - 0(No drift) 6b. Right Leg: Motor (5-second hold - always test supine) - 0(No drift) 7. Limb Ataxia (finger/nose \T\ heel/armstrong - test with eyes open) - 0(Absent) 8. Sensory Loss (pinprick arms/legs/face) - 1(Mild to moderate loss) 9. Best Language: Aphasia (description/naming/reading) - 0(No aphasia) 10. Dysarthria (speech clarity - read or repeat words) - 0(Normal) 11. Extinction and Inattention (visual/tactile/auditory/spatial/personal) - 0(No abnormality) Initials: kd3 Signatures: Dispatcher [employer] EDSacha Garcia MD MD rn Prokisch, Amanda, RN RN ap3 Slawson, Ashby, RN RN as6 Doucette, Kyli, RN RN kd3 Elzbieta Alba RN kd3 Corrections: (The following items were deleted from the chart) 05:08 05:08 General: Appears in no apparent distress. comfortable, Behavior is calm, kd3 cooperative, pt moved to a hospital bed . kd3 05:08 05:08 Reassessment: No changes from previously documented assessment. Patient kd3 and/or family updated on plan of care and expected duration. Pain level reassessed. Patient is alert, oriented x 3, equal unlabored respirations, skin warm/dry/pink. kd3 05:10 05:09 General: Appears in no apparent distress. comfortable, Behavior is calm, kd3 cooperative, kd3 05:10 05:09 Pain: Denies pain. kd3 kd3 05:10 05:09 Neuro: Level of Consciousness is awake, alert, obeys commands, Oriented kd3 to person, place, time, situation, kd3 05:10 05:09 Respiratory: Airway is patent Trachea midline Respiratory effort is even, kd3 unlabored, Respiratory pattern is regular, symmetrical, kd3 05:10 05:09 Cardiovascular: Patient's skin is warm and dry. kd3 kd3 05:12 00:47 NIHSS Score: 0 kd3 kd3
[2022-11-02 22:42] LABS: Blood Morphology Comment NOTED (NOT SEEN); Platelet Estimate ADEQ
[2022-11-02 22:43] LABS: Burr Cells 2+
[2022-11-02] MEDS ORDERED: NA CHLORIDE 0.9% 50 ML IV ONE (22:48)
[2022-11-02] MEDS ORDERED: FOLIC ACID 5 MG/ML VIAL ONE (22:49)
[2022-11-02 22:54] LABS: Protime INR 1.35
--- NOTE | 2022-11-02 23:12 | RAD REPORT ---
EXAM DESCRIPTION: CT - Neck Angio - 11/02/2022 11:01 pm CLINICAL HISTORY: LLE weak/numb COMPARISON: Neck Angio dated 05/09/2022; Neck Angio dated 07/08/2021 TECHNIQUE: CT angiography of the neck vessels was performed with MIPs. All CT scans are performed using dose optimization technique as appropriate and may include automated exposure control or mA/KV adjustment according to patient size. FINDINGS: A left aortic arch is identified with normal three vessel configuration of the great vesse ls. No significant flow abnormality is seen of the common carotid bilaterally. Calcified plaque is present at both of the proximal ICAs with less than 50% stenoses. Normal flow is seen within both vertebral arteries. Multinodular thyroid. Circumferential thickening in the right maxillary and left sphenoid sinus. IMPRESSION: No hemodynamically significant flow abnormality of the neck vessels is identified. Less than 50% stenoses are present at both the proximal ICAs secondary to calcified plaque . . CAROTID STENOSIS REFERENCE USING NASCET CRITERIA: Mild - <50% stenosis. Moderate - 50-69% stenosis. Severe - 70-94% stenosis. Near occlusion - 95-99% stenosis. Occluded - 100% stenosis.
--- NOTE | 2022-11-02 23:14 | RAD REPORT ---
EXAM DESCRIPTION: CT - Head angio - 11/02/2022 11:01 pm CLINICAL HISTORY: left leg weakness/numb COMPARISON: Ct Stroke Brain Wo Cont dated 11/02/2022; Head angio dated 05/09/2022 TECHNIQUE: CT angiography of the head was performed with MIPs. All CT scans are performed using dose optimization technique as appropriate and may include automated exposure control or mA/KV adjustment according to patient size. FINDINGS: Anterior circulation: Calcified plaque involving the bilateral intracranial ICAs. No aneurysm or large vessel occlusion. No hemodynamically significant stenosis. No arteriovenous malformation identified. Posterior circulation: type left [employer] . No aneurysm or large vessel occlusion. No hemodynamically significant stenosis. No arteriovenous malformation identified. IMPRESSION: No significant flow abnormality is detected.
--- NOTE | 2022-11-03 00:09 | P.HP ---
Certification for Inpatient Patient admitted to: Inpatient With expected LOS: <2 Midnights Patient will require the following post-hospital care: None Practitioner: I am a practitioner with admitting privileges, knowledge of patient current condition, hospital course, and medical plan of care. Services: Services provided to patient in accordance with Admission requirements found in Title 42 Section 412.3 of the Code of Federal Regulations Patient History Date of Service: 11/03/22 Reason for admission: Acute CVA/TIA History of Present Illness: Patient is a 67-year-old female with history of previous CVAs, hypertension, diabetes mellitus type [id number], hyperlipidemia, tobacco abuse, and breast cancer currently undergoing chemotherapy who presented to the emergency department via EMS with complaints of sudden onset left leg weakness. She reported that she could not feel her left leg or walk. NIHSS 3. Head CT negative. She was in the window for TNK, so it was administered in the emergency department. She is on daily plavix. Head/neck CTA also negative. Per chart review, she has had previous CVAs/TIAs that have caused left sided deficits and resolved. Her labs today are significant for hgb 10.7, hct 31.6, BUN 27, Cr 1.48, glucose 266. Her left leg weakness has improved but is still present. Patient will be admitted for further evaluation and management of acute CVA. Allergies pineapple Allergy (Verified 05/03/22 09:00) Anaphylaxis Home medications list reviewed: Yes Home Medications: Atorvastatin Calcium [Lipitor] 40 mg PO BEDTIME #30 tab 07/21/21 Clopidogrel Bisulfate [Plavix*] 75 mg PO DAILY #30 tablet 07/21/21 Glimepiride 1 mg PO DAILY #30 07/21/21 Metformin ER [Glucophage ER*] 500 mg PO BIDWM #60 tab.sa 07/21/21 LORazepam [Ativan*] 0.5 mg PO BID PRN 05/03/22 Aspirin 81 mg PO DAILY #30 tab.chew 05/13/22 Losartan Potassium [Cozaar*] 100 mg PO DAILY 06/14/22 Magnesium Oxide 400 mg PO BID 06/14/22 - Past Medical/Surgical History Diabetic: Yes -: HTN -: NIDDM -: TIAs -: tobacco abuse -: CVAs -: Breast Cancer -: Bilateral mastectomy -: appendectomy -: splenectomy Psychosocial/ Personal History: Patient lives at home with her daughters. - Family History Father History Unknown: Yes Notes: Patient was adopted - Social History Smoking Status: Current some day smoker Alcohol use: No CD- Drugs: No Caffeine use: Yes Place of Residence: Home Review of Systems Neurological: Weakness, Numbness, Incoordination Physical Examination - Vital Signs Temperature: 98.1 F Blood Pressure: 93/63 Pulse: 75 Respirations: 19 Pulse Ox (%): 93 - Physical Exam General: Alert, In no apparent distress HEENT: Atraumatic, PERRLA, EOMI Neck: Supple, 2+ carotid pulse no bruit Respiratory: Clear to auscultation bilaterally, Normal air movement Cardiovascular: Regular rate/rhythm, Normal S1 S2 Gastrointestinal: Normal bowel sounds, No tenderness Musculoskeletal: No tenderness Integumentary: No rashes Neurological: Normal gait, Normal affect, Abnormal strength, Abnormal sensation - Studies Laboratory Data (last 24 hrs) 11/02/22 19:55: PT 14.8 H, INR 1.35, APTT 28.1 11/02/22 19:55: WBC 13.70 H, Hgb 10.7 L, Hct 31.6 L, Plt Count 424 H 11/02/22 19:55: Sodium 138, Potassium 4.0, BUN 27 H, Creatinine 1.48 H, Glucose 266 H Assessment and Plan - Problems (Diagnosis) (1) Acute CVA (cerebrovascular accident) Current Visit: Yes Status: Acute (2) Breast cancer Current Visit: Yes Status: Chronic Qualifiers: Breast location: unspecified site of breast Estrogen receptor status: unspecified Patient sex: female Laterality: right Qualified Code(s): C50.911 - Malignant neoplasm of unspecified site of right female breast (3) DM2 (diabetes mellitus, type 2) Current Visit: Yes Status: Chronic Qualifiers: Diabetes mellitus mcc insulin use: without terminologist use Diabetes mellitus complication status: with hyperglycemia Qualified Code(s): E11.65 - Type 2 diabetes mellitus with hyperglycemia (4) HTN (hypertension) Current Visit: Yes Status: Chronic Qualifiers: Hypertension type: primary hypertension Qualified Code(s): I10 - Essential (primary) hypertension (5) Anemia Current Visit: Yes Status: Chronic Qualifiers: Anemia type: other cause Other causes of anemia: chronic disease, other Qualified Code(s): D63.8 - Anemia in other chronic diseases classified elsewhere - Plan Patient is admitted ICU status for acute CVA s/p TNK. MRI stroke protocol and echo ordered. Echo from 5 months ago did not show any ab normalities. Neurology consult in place. We will have patient evaluated by physical therapy and speech therapy. Patient has passed her bedside swallow. Diabetic diet ordered. ACHS Accu-Chek, sliding scale insulin. A1c in the morning. Continue atorvastatin, will obtain lipid panel in the morning. Neuro assesments q6h and NIHSS qshift. Monitor and replete electrolytes per protocol. Reconcile and continue home medications. Full code. Discharge Plan: Home Plan to discharge in: 48 Hours - Advance Directives Does patient have a Living Will: No Does patient have a Durable POA for Healthcare: No - Code Status/Comfort Care Code Status Assessed: Yes Code Status: Full Code Physician Review: Patient Assessed, Agree with Above Assessment and Plan Critical Care: No Time Spent Managing Pts Care (In Minutes): 50
[2022-11-03 00:10] LABS: SARS-CoV-2 Antigen Rapid Res Negative (Negative)
[2022-11-03] MEDS ORDERED: NA CHLORIDE 0.9% 500 ML ONE (02:57)
[2022-11-03] MEDS ORDERED: ONDANSETRON 4 MG/2 ML VIAL IV PRN (04:25)
[2022-11-03] MEDS ORDERED: ALBUTEROL 2.5 MG/3 ML NEB SOL NEB PRN (04:25)
[2022-11-03] MEDS: NA CHLORIDE 0.9% 1,000 ML IV SCH ×3 (04:25→20:59)
[2022-11-03] MEDS ORDERED: ACETAMINOPHEN 500 MG TAB PO PRN (04:25)
[2022-11-03 05:28] LABS: Absolute Lymphocytes (CBC) 2.3 K/uL (0.7-4.9); Hematocrit 30.4 % (36.0-45.0); Lymphocytes % 15.8 % (15.3-44.8); MCV 89.6 fL (80-100); MPV 11.3 fL (7.6-11.3); RBC Red Blood Cell Count 3.39 M/uL (3.86-4.86)
[2022-11-03 05:41] LABS: C-Reactive Protein 44.1 mg/L (<3.00); Magnesium 2.1 mg/dL (1.6-2.4); Potassium 3.9 mmol/L (3.5-5.1)
[2022-11-03] MEDS ORDERED: NA CHLORIDE 0.9% 1,000 ML ONE (06:34)
[2022-11-03 06:56] VITALS: BMI 37.5
[2022-11-03] MEDS: INSULIN -REGULAR HUMAN 50 UNIT/0.5 ML ML SQ SCH ×4 (07:30→21:00)
[2022-11-03] MEDS ORDERED: PNEUMOCOCCAL VACCINE 0.5 ML IMVAC ONE (08:00)
[2022-11-03] MEDS ORDERED: FOLIC ACID 1 MG in NA CHLORIDE 0.9% 50 ML IV SCH (09:00)
[2022-11-03] MEDS ORDERED: FOLIC ACID 5 MG/ML VIAL IVP SCH (09:00)
--- NOTE | 2022-11-03 11:43 | RAD REPORT ---
EXAM DESCRIPTION: MRI - Brain W/Wo Cont - 11/03/2022 10:54 am CLINICAL HISTORY: Left lower extremity weakness and numbness COMPARISON: head CT November 02, 2022 TECHNIQUE: Axial, sagittal, and coronal magnetic images of the brain were obtained. 20 cc MultiHance administered intravenously FINDINGS: Moderate relatively old right parietal lobe infarct. T1 weighted sequences demonstrate sma ll amount of increased signal compatible with mild cortical laminar necrosis. The ventricles are normal in caliber. Diffusion-weighted/ ADC mapping sequences do not demonstrate evidence of an acute infarction. No abnormal enhancement within the brain is seen. An extra-axial fluid collection is not noted. Fluid within the sinuses/mastoids is not seen IMPRESSION: No acute intracranial abnormality displayed
--- NOTE | 2022-11-03 11:46 | RAD REPORT ---
EXAM DESCRIPTION: MRI - MRA Neck W/Wo Cont - 11/03/2022 10:54 am CLINICAL HISTORY: Left-sided weakness and numbness COMPARISON: April 2022 TECHNIQUE: Magnetic resonance angiogram of the neck was performed. 19 cc MultiHance was administered intravenously. 3D MIPS reconstruction performed FINDINGS: Mild plaque is present within common carotid, internal and external carotid arteries bilat erally. No dissection noted. No significant stenosis vertebral arteries. . IMPRESSION: Mild plaque within the carotid arteries NASCET criteria used. Mild 0-49% stenosis Moderate 50-69% stenosis Severe 70-99% stenosis
--- NOTE | 2022-11-03 11:48 | RAD REPORT ---
EXAM DESCRIPTION: MRI - MRA Head Wo Cont - 11/03/2022 10:54 am CLINICAL HISTORY: Left extremity weakness and numbness COMPARISON: April 2022 TECHNIQUE: Magnetic resonance angiogram was performed. 3D MIPS reconstruction performed FINDINGS: The anterior cerebral, middle cerebral, posterior cerebral, distal internal carotid and ba silar arteries do not demonstrate a significant stenosis. An aneurysm is not displayed. Dolichoectasia vertebrobasilar artery IMPRESSION: No acute abnormality is displayed
--- NOTE | 2022-11-03 14:22 | EKG ---
Test Date: 2022-11-02 Test Time: 22:00:04 Director Marketing: MEASUREMENT RESULTS: Intervals: Rate: 66 TX: 144 QRSD: 106 QT: 394 QTc: 413 [place]: P: 54 TX: 144 QRS: 74 T: 70 INTERPRETIVE STATEMENTS: Normal sinus rhythm Normal ECG Compared to ECG 05/09/2022 16:47:32 No significant changes Electronically Signed On 11-03-22 14:20:52 PARAMEDIC SUPERVISOR by Oziel Levin
--- NOTE | 2022-11-03 17:55 | P.PN ---
Date of Service: 11/03/22 Patient seen and examined. She reports significant improvement in the left leg weakness. Patient currently needing moderate assistance with ambulation. Plan: Repeat CT head 24 hours post TNKase is pending. MRI of the brain shows no acute disease. MRA of the brain and neck unremarkable Continue PT and OT. Patient with a history of CVA in the past. 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 Social service to evaluate for inpatient rehab placement. Continue aspirin and Plavix Add folic acid. LDL within target. Continue home dose statin.
[2022-11-03] MEDS ORDERED: PANTOPRAZOLE 40MG TABLET PO ONE (18:00)
[2022-11-03] MEDS: ATORVASTATIN 20 MG TAB PO SCH (20:58)
[2022-11-03] MEDS: MAGNESIUM OXIDE 400 MG TAB PO SCH (20:58)
[2022-11-03] MEDS: GABAPENTIN 300 MG CAP PO SCH ×2 (20:58→21:00)
--- NOTE | 2022-11-03 22:19 | RAD REPORT ---
EXAM DESCRIPTION: CT - Head Brain Wo Cont - 11/03/2022 10:12 pm CLINICAL HISTORY: Acute CVA S/p TNKase COMPARISON: Head angio dated 11/02/2022; Ct Stroke Brain Wo Cont dated 11/02/2022; MRA Head Wo Cont da basil 11/03/2022; Brain W/Wo Cont dated 11/03/2022; MRA Neck W/Wo Cont dated 11/03/2022 TECHNIQUE: All CT scans are performed using dose optimization technique as appropriate and may inclu de automated exposure control or mA/KV adjustment according to patient size. FINDINGS: No intracranial hemorrhage, hydrocephalus or extra-axial fluid collection.No areas of brai n edema or evidence of midline shift. Remote right frontal parietal infarct is unchanged. The paranasal sinuses and mastoids are clear. The calvarium is intact. IMPRESSION: No acute intracranial abnormality. No change compared with the head CT from 11/02/2022. Remote right frontoparietal infarct.
[2022-11-04 06:19] LABS: Absolute Lymphocytes (CBC) 3.8 K/uL (0.7-4.9); Hematocrit 30.2 % (36.0-45.0); Lymphocytes % 39.8 % (15.3-44.8); MCV 89.3 fL (80-100); MPV 11.4 fL (7.6-11.3); RBC Red Blood Cell Count 3.38 M/uL (3.86-4.86)
[2022-11-04 06:25] LABS: Potassium 3.6 mmol/L (3.5-5.1)
[2022-11-04] MEDS: NA CHLORIDE 0.9% 1,000 ML IV SCH ×2 (07:14→22:56)
[2022-11-04] MEDS: INSULIN -REGULAR HUMAN 50 UNIT/0.5 ML ML SQ SCH ×4 (07:30→19:42)
[2022-11-04] MEDS ORDERED: POTASSIUM 25 MEQ EFFERV TAB PO ONE (08:00)
[2022-11-04] MEDS ORDERED: POTASS/SODIUM PHOSPHATE 1 PKT POWD.PACK PO ONE (09:00)
[2022-11-04] MEDS ORDERED: LOSARTAN POTASSIUM 50 MG TABLET PO SCH (09:00)
[2022-11-04] MEDS: GABAPENTIN 300 MG CAP PO SCH ×2 (09:00→19:41)
[2022-11-04] MEDS: MAGNESIUM OXIDE 400 MG TAB PO SCH ×2 (09:05→19:55)
[2022-11-04] MEDS: CLOPIDOGREL 75 MG TABLET PO SCH (09:05)
[2022-11-04] MEDS: FOLIC ACID 1 MG TABLET PO SCH (09:05)
--- NOTE | 2022-11-04 14:43 | P.PN ---
Subjective Date of Service: 11/04/22 Chief Complaint: Acute CVA/TIA Patient reports numbness on the fingertips of both hands. She states that she is able to stand but she cannot take a step with her left leg. No issues overnight. Physical Examination - Vital Signs Temperature: 97.2 F Blood Pressure: 134/76 Pulse: 97 Respirations: 16 Pulse Ox (%): 94 Assessment And Plan - Current Problems (Diagnosis) (1) History of CVA (cerebrovascular accident) Current Visit: Yes Status: Acute (2) Acute CVA (cerebrovascular accident) Current Visit: Yes Status: Acute (3) Breast cancer Current Visit: Yes Status: Chronic Qualifiers: Breast location: unspecified site of breast Estrogen receptor status: unspecified Patient sex: female Laterality: right Qualified Code(s): C50.911 - Malignant neoplasm of unspecified site of right female breast (4) HTN (hypertension) Current Visit: Yes Status: Chronic Qualifiers: Hypertension type: primary hypertension Qualified Code(s): I10 - Essential (primary) hypertension (5) BMI 40.0-44.9, adult Current Visit: No Status: Acute - Plan Physical Exam General: Alert, In no apparent distress HEENT: Atraumatic, PERRLA, EOMI Neck: Supple, 2+ carotid pulse no bruit Respiratory: Clear to auscultation bilaterally, Normal air movement Cardiovascular: Regular rate/rhythm, Normal S1 S2 Gastrointestinal: Normal bowel sounds, No tenderness Musculoskeletal: No tenderness Integumentary: No rashes Neurological: Normal affect, normal strength-all extremities, abnormal gait. Plan: Repeat CT head 24 hours post TNKase shows no acute disease, no hemorrhage MRI of the brain shows no acute disease. MRA of the brain and neck unremarkable. Neurology input appreciated. Patient's symptoms could be related to TIA or late effect of stroke. Continue PT and OT. Patient with a history of CVA in the past. Patient with chemotherapy-induced neuropathy. Recommend inpatient rehab pending insurance authorization. Continue aspirin and Plavix and folic acid LDL within target. Continue home dose statin.
--- NOTE | 2022-11-04 18:41 | CON ---
Reason For Consultation: Consultation called because of worsening left-sided weakness. History Of Present Illness: Ms. Jackson is a 67-year-old right-handed patient with history of previous stroke affecting her right brain with residual left upper and lower extremity weakness. In addition to breast cancer with metastasis on chemotherapy with chemotherapy-related peripheral neuro julian in addition to diabetes mellitus and diabetic neuropathy, dyslipidemia, tobacco abuse who repor ts she has had worsening ability to take care of herself with more left-sided weakness. It is listed as sudden in the chart, however, the patient did say that she has had some progressive weakness sinc e leaving her hospital stay at [facility], where she had rehab with more difficulty dressing, using u pper and lower body for stability, but it is noted again that she did have more sudden onset left leg weakness in the emergency room notes. NIH stroke scale there was 3. The patient felt she was so we ak she could not ambulate. Head CT scan was negative. She was in the window for TNKase at the time, onset was felt to be sudden. Based on the patient's report and that arrival time in emergency room was 2135 and the time of onset was reported at 2030. Given her NIH stroke scale of 3 and negative he ad CT scan for any hemorrhage and other contraindication, she received TNKase per protocol. Followin g routine case, she was watched for 4 hours and has had no hemorrhagic conversion. A repeat head CT scan done without contrast showed no hemorrhagic changes. There was a remote right frontoparietal in farct identified on a brain MRI. Also revealed no acute ischemic or hemorrhagic changes. There was old right parietal lobe infarct, and there was noted a small amount of increased signal compatible wi th mild cortical laminar necrosis in the right as well. Since she has been hospitalized, she reports no significant worsening in her left-sided symptoms, although she is able to move the left arm and l eg slightly better, and there was some more sensation in the left upper and lower extremities. Her c omplete blood count with differential initially showed elevated white cell count of 13.7 with neutrop hils 81.0 now that was on 09/04, white blood cell count 9.5 with neutrophils 56.9. Her chemistries s how normal sodium, potassium. Chloride slightly elevated 109. BUN is slightly elevated at 25, creat inine 0.63. Glucose 78, ranging up to 141. Calcium 8.5, magnesium 2.0. C-reactive protein was elev ated at 44.1, triglycerides elevated 152, cholesterol 104, LDL of 41, HDL of 33, cholesterol to HDL r atio of 3.15. COVID-19 test was negative. MRA of her neck showed mild plaque in the carotid arterie s. MRA of her brain showed no acute abnormalities. The anterior, middle and posterior cerebral noah keith along with the distal internal carotid and basilar arteries do not demonstrate significant steno sis. Past Medical History: As noted with strokes on the right brain in the frontal region with left-sided weakness, leg and arm that has resolved significantly after aggressive rehabilitation. In addition to her diabetes mellitus, hypertension, dyspnea. Allergies: PINEAPPLE. Past Surgical History: Bilateral mastectomy, appendectomy, splenectomy. Social History: She lives at home with daughters. She smokes cigarettes daily at least 10 cigarette s. She admits to smoking daily. Family History: Unknown. She is adopted. Review of Systems: She has residual weakness that is superimposed. Acute weakness on the left side. In addition, diffi culty dressing of lower body and getting around at home. She does deny fevers or chills, nausea, vom iting, significant myalgias or arthralgias. No rash, headache, weight change. No active psychiatric issues. Physical Examination: Vital Signs: Blood pressure 134/76, pulse of 97, respiratory rate 16, temperature 97.2, oxygen satur ation 95% on room air. Weight 211 pounds, height 5 feet 3 inches. General: Ms. Jackson is resting in bed. Daughter is at the bedside. She is in no significant distres s. She is worried that she may not be able to go to the inpatient rehabilitation, but she is excited to go and resume therapy. HEENT: Otherwise, she is normocephalic, atraumatic. Sclerae anicteric. Oropharynx is moist. Neck: Supple. Chest: Clear. Heart: Regular. Extremities: Show no significant cyanosis or edema. Neurologic: Alert and oriented to situation, place, and person. She follows commands appropriately. She does not have any obvious focal cranial nerve deficits. Her face is symmetric. Intact light t ouch temperature bilaterally. Motor examination: Subtle 4/5 strength in the left upper extremity an d left lower extremity, right side 5/5 sensation, slight decreased light touch in the left compared t o the right arm and leg. Coordination intact in the lower extremities. Reflexes are slightly asymme tric with increased reflexes on the left compared to the right side around 2/1 upper and lower extrem ity. She will be evaluated by the physical therapist and ambulated. Assessment: Ms. Jackson is a 67-year-old patient with chronic right frontal stroke with residual left upper and lower extremity weakness. She has some worsening symptoms and received TNKase with still r esidual weakness there. The MRI of the brain does not reveal a new stroke, but her chronic stroke is present. CT angiogram head and neck showed no significant abnormalities. Blood work does not revea l an infection, and her chest imaging has not revealed a pneumonia. However, she is somewhat unstabl e with gait with a tendency per patient report to fall and there is some mild residual left-sided wea kness, and she does have reported difficulty with upper and lower body dressing and managing some act ivities of daily living. 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 Plan: She should be fully evaluated by Physical therapy to see if she is an appropriate candidate fo r inpatient rehabilitation and so should be admitted to inpatient rehabilitation unit for aggressive physical, occupational, and speech therapy as appropriate. Next, aggressive management of her comorb id conditions including diabetes mellitus, hypertension, and dyslipidemia, and she actually is on jeremy oing chemotherapy, but if she is in the rehabilitation unit, then likely continue therapy which is given by infusion and not take more than 1-2 hours. SEAMUS/JEANNETTE Voice ID: [id number] Report ID: [id number]
[2022-11-04] MEDS: ATORVASTATIN 20 MG TAB PO SCH (19:54)
[2022-11-04] MEDS: ENSURE ENLIVE 237 ML CAN PO SCH (19:55)
[2022-11-05] MEDS: INSULIN -REGULAR HUMAN 50 UNIT/0.5 ML ML SQ SCH ×4 (07:28→19:31)
[2022-11-05] MEDS: NA CHLORIDE 0.9% 1,000 ML IV SCH (08:46)
[2022-11-05] MEDS: FOLIC ACID 1 MG TABLET PO SCH (08:46)
[2022-11-05] MEDS: CLOPIDOGREL 75 MG TABLET PO SCH (08:46)
[2022-11-05] MEDS: MAGNESIUM OXIDE 400 MG TAB PO SCH ×2 (08:46→21:03)
[2022-11-05] MEDS: ENSURE ENLIVE 237 ML CAN PO SCH ×3 (08:47→21:00)
[2022-11-05] MEDS: GABAPENTIN 300 MG CAP PO SCH ×2 (08:48→19:23)
--- NOTE | 2022-11-05 11:38 | P.PN ---
Subjective Date of Service: 11/05/22 Chief Complaint: Acute CVA/TIA No changes from yesterday. Patient states she is tolerating her diet. Physical Examination - Vital Signs Temperature: 97.6 F Blood Pressure: 114/48 Pulse: 91 Respirations: 16 Pulse Ox (%): 94 Assessment And Plan - Current Problems (Diagnosis) (1) History of CVA (cerebrovascular accident) Current Visit: Yes Status: Acute (2) Acute CVA (cerebrovascular accident) Current Visit: Yes Status: Acute (3) Breast cancer Current Visit: Yes Status: Chronic Qualifiers: Breast location: unspecified site of breast Estrogen receptor status: unspecified Patient sex: female Laterality: right Qualified Code(s): C50.911 - Malignant neoplasm of unspecified site of right female breast (4) HTN (hypertension) Current Visit: Yes Status: Chronic Qualifiers: Hypertension type: primary hypertension Qualified Code(s): I10 - Essential (primary) hypertension (5) BMI 40.0-44.9, adult Current Visit: No Status: Acute - Plan Physical Exam General: Alert, In no apparent distress HEENT: PERRLA, EOMI Neck: Supple, 2+ carotid pulse no bruit Respiratory: Clear to auscultation bilaterally, Normal air movement Cardiovascular: Regular rate/rhythm, Normal S1 S2 Gastrointestinal: Normal bowel sounds, No tenderness Musculoskeletal: No tenderness Integumentary: No rashes Neurological: Normal affect, normal strength-all extremities, abnormal gait. Plan: Repeat CT head 24 hours post TNKase shows no acute disease, no hemorrhage MRI of the brain shows no acute disease. MRA of the brain and neck unremarkable. Neurology input appreciated. Patient's symptoms could be related to TIA or late effect of stroke. Continue PT and OT. Patient with a history of CVA in the past. 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 Recommend inpatient rehab pending insurance authorization. Continue aspirin and Plavix and folic acid LDL within target. Continue home dose statin. No problem with swallowing. Diet as tolerated.
[2022-11-05] MEDS: ATORVASTATIN 20 MG TAB PO SCH (21:03)
[2022-11-06] MEDS: NA CHLORIDE 0.9% 1,000 ML IV SCH ×2 (04:53→13:06)
[2022-11-06] MEDS: INSULIN -REGULAR HUMAN 50 UNIT/0.5 ML ML SQ SCH ×4 (07:30→19:45)
[2022-11-06] MEDS: GABAPENTIN 300 MG CAP PO SCH ×2 (08:02→19:44)
[2022-11-06] MEDS: MAGNESIUM OXIDE 400 MG TAB PO SCH ×2 (08:02→20:57)
[2022-11-06] MEDS: CLOPIDOGREL 75 MG TABLET PO SCH (08:02)
[2022-11-06] MEDS: FOLIC ACID 1 MG TABLET PO SCH (08:02)
[2022-11-06] MEDS: ENSURE ENLIVE 237 ML CAN PO SCH ×3 (08:02→20:57)
--- NOTE | 2022-11-06 12:00 | P.PN ---
Subjective Date of Service: 11/06/22 Chief Complaint: Acute CVA/TIA Patient scratchy throat, loss of her voice and coughing up sputum. Patient states she is tolerating her diet. Physical Examination - Vital Signs Temperature: 97.0 F Blood Pressure: 119/65 Pulse: 89 Respirations: 16 Pulse Ox (%): 94 Assessment And Plan - Current Problems (Diagnosis) (1) History of CVA (cerebrovascular accident) Current Visit: Yes Status: Acute (2) Acute CVA (cerebrovascular accident) Current Visit: Yes Status: Acute (3) Breast cancer Current Visit: Yes Status: Chronic Qualifiers: Breast location: unspecified site of breast Estrogen receptor status: unspecified Patient sex: female Laterality: right Qualified Code(s): C50.911 - Malignant neoplasm of unspecified site of right female breast (4) HTN (hypertension) Current Visit: Yes Status: Chronic Qualifiers: Hypertension type: primary hypertension Qualified Code(s): I10 - Essential (primary) hypertension (5) BMI 40.0-44.9, adult Current Visit: No Status: Acute - Plan Physical Exam General: Alert, In no apparent distress Neck: Supple, 2+ carotid pulse no bruit Respiratory: Clear to auscultation bilaterally, Normal air movement Cardiovascular: Regular rate/rhythm, Normal S1 S2 Gastrointestinal: Normal bowel sounds, No tenderness Musculoskeletal: No tenderness Integumentary: No rashes Neurological: Normal affect, normal strength-all extremities, abnormal gait. Plan: Repeat CT head 24 hours post TNKase shows no acute disease, no hemorrhage MRI of the brain shows no acute disease. MRA of the brain and neck unremarkable. Neurology input appreciated. Patient's symptoms could be related to TIA or late effect of stroke. Continue PT and OT. Patient with a history of CVA in the past. 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 Recommend inpatient rehab pending insurance authorization. Continue aspirin and Plavix and folic acid LDL within target. Continue home dose statin. No problem with swallowing. Diet as tolerated. Mucomyst inhaler to help clear secretions from her throat.
[2022-11-06] MEDS: ACETYLCYST 20% 4 ML VIAL IH SCH ×2 (13:47→19:20)
[2022-11-06] MEDS: ALBUTEROL 2.5 MG/3 ML NEB SOL NEB PRN ×2 (13:47→19:20)
[2022-11-06] MEDS: ATORVASTATIN 20 MG TAB PO SCH (20:57)
[2022-11-07] MEDS: ACETYLCYST 20% 4 ML VIAL IH SCH ×4 (01:45→20:25)
[2022-11-07] MEDS: ALBUTEROL 2.5 MG/3 ML NEB SOL NEB PRN ×3 (01:45→15:53)
[2022-11-07 03:44] LABS: Absolute Lymphocytes (CBC) 3.5 K/uL (0.7-4.9); Hematocrit 26.5 % (36.0-45.0); Lymphocytes % 39.9 % (15.3-44.8); MCV 89.4 fL (80-100); MPV 11.2 fL (7.6-11.3); RBC Red Blood Cell Count 2.96 M/uL (3.86-4.86)
[2022-11-07 04:06] LABS: Potassium 3.2 mmol/L (3.5-5.1)
[2022-11-07] MEDS: INSULIN -REGULAR HUMAN 50 UNIT/0.5 ML ML SQ SCH ×4 (07:30→20:53)
[2022-11-07] MEDS: FOLIC ACID 1 MG TABLET PO SCH (08:43)
[2022-11-07] MEDS: MAGNESIUM OXIDE 400 MG TAB PO SCH ×2 (08:43→20:57)
[2022-11-07] MEDS: ENSURE ENLIVE 237 ML CAN PO SCH ×3 (08:43→21:00)
[2022-11-07] MEDS: CLOPIDOGREL 75 MG TABLET PO SCH (08:43)
[2022-11-07] MEDS: GABAPENTIN 300 MG CAP PO SCH ×2 (08:43→20:58)
[2022-11-07] MEDS ORDERED: POTASSIUM CL SA 10 MEQ TAB PO ONE (09:00)
--- NOTE | 2022-11-07 12:36 | P.DS ---
Admission Date: 11/03/22 Discharge Date: 11/07/22 Disposition: DC HOME/HOME HEALTH CARE Discharge Condition: FAIR Reason for Admission: Acute CVA/TIA - Problems (1) History of CVA (cerebrovascular accident) Current Visit: Yes Status: Acute (2) Acute CVA (cerebrovascular accident) Current Visit: Yes Status: Acute (3) Breast cancer Current Visit: Yes Status: Chronic Qualifiers: Breast location: unspecified site of breast Estrogen receptor status: unspecified Patient sex: female Laterality: right Qualified Code(s): C50.911 - Malignant neoplasm of unspecified site of right female breast (4) HTN (hypertension) Current Visit: Yes Status: Chronic Qualifiers: Hypertension type: primary hypertension Qualified Code(s): I10 - Essential (primary) hypertension (5) BMI 40.0-44.9, adult Current Visit: No Status: Acute Brief History of Present Illness: Patient is a 67-year-old female with history of previous CVAs, hypertension, diabetes mellitus type [id number], hyperlipidemia, tobacco abuse, and breast cancer currently undergoing chemotherapy who presented to the e mergency department via EMS with complaints of sudden onset left leg weakness. She reported that she could not feel her left leg or walk. NIHSS 3. Head CT negative. She was in the window for TNK, so it was administered in the emergency department. She is on daily plavix. Head/neck CTA also negative. Per chart review, she has had previous CVAs/TIAs that have caused left sided deficits and resolved. Her labs were significant for hgb 10.7, hct 31.6, BUN 27, Cr 1.48, glucose 266. Her left leg weakness improved while in the ED. Patient was admitted for further evaluation and management of acute CVA. Hospital Course: Patient admitted to the medical floor for stroke work-up. Repeat CT head 24 hours post TNKase showed no acute disease, no hemorrhage MRI of the brain showed no acute disease. MRA of the brain and neck unremarkable. Seen by neurology, patient's symptoms could be related to TIA or late effect of stroke. Patient evaluated by PT and OT. Her functional status improved from not being able to take a step to ambulating about 20 feet with a walker. Patient with a history of CVA in the past. 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 Continued aspirin and Plavix and folic acid LDL within target. Continued home dose statin. She had no problem with swallowing. She tolerated her diet. She was complaining of secretions stuck in her throat which was managed with Mucomyst inhaler. Patient has clinically improved. She is currently on chemotherapy and scheduled for chemo this week. She is discharged to home with home health for PT and care home so she can continue her chemotherapy as outpatient. Vital Signs/Physical Exam: Temp Pulse Resp BP Pulse Ox 98.1 F 82 16 106/56 L 95 11/07/22 12:00 11/07/22 12:00 11/07/22 12:00 11/07/22 12:00 11/07/22 12:00 General: Alert, In no apparent distress, Oriented x3 HEENT: Mucous membr. moist/pink Neck: JVD not distended Respiratory: Clear to auscultation bilaterally, Normal air movement Cardiovascular: No edema, Regular rate/rhythm, Normal S1 S2 Gastrointestinal: Soft and benign, Non-distended, No tenderness Musculoskeletal: No swelling Integumentary: No rashes Neurological: Normal strength at 5/5 x4 extr, Cranial nerves 3-12 intact Laboratory Data at Discharge: WBC 8.80 K/uL (4.3-10.9) 11/07/22 03:24 Hgb 9.1 g/dL (12.0-15.0) L 11/07/22 03:24 Hct 26.5 % (36.0-45.0) L 11/07/22 03:24 Plt Count 333 K/uL (152-406) 11/07/22 03:24 PT 14.8 SECONDS (9.5-12.5) H 11/02/22 19:55 INR 1.35 11/02/22 19:55 APTT 28.1 SECONDS (24.3-36.9) 11/02/22 19:55 Sodium 143 mmol/L (136-145) 11/07/22 03:24 Potassium 3.2 mmol/L (3.5-5.1) L 11/07/22 03:24 BUN 8 mg/dL (7-18) 11/07/22 03:24 Creatinine 0.45 mg/dL (0.55-1.02) L 11/07/22 03:24 Glucose 133 mg/dL (74-106) H 11/07/22 03:24 Phosphorus 2.0 mg/dL (2.5-4.9) L 11/04/22 05:38 Magnesium 2.0 mg/dL (1.6-2.4) 11/04/22 05:38 Triglycerides 152 mg/dL (<150) H 11/03/22 04:44 Cholesterol 104 mg/dL (<200) 11/03/22 04:44 HDL Cholesterol 33 mg/dL (40-60) L 11/03/22 04:44 Cholesterol/HDL Ratio 3.15 11/03/22 04:44 Home Medications: Atorvastatin Calcium [Lipitor] 40 mg PO BEDTIME #30 tab 07/21/21 Clopidogrel Bisulfate [Plavix*] 75 mg PO DAILY #30 tablet 07/21/21 Metformin ER [Glucophage ER*] 500 mg PO BIDWM #60 tab.sa 07/21/21 LORazepam [Ativan*] 0.5 mg PO BID PRN 05/03/22 Aspirin 81 mg PO DAILY #30 tab.chew 05/13/22 Losartan Potassium [Cozaar*] 100 mg PO DAILY 06/14/22 Magnesium Oxide 400 mg PO BID 06/14/22 Gabapentin 300 mg PO BID 11/03/22 Glimepiride 2 mg PO DAILY 11/03/22 Pantoprazole Sodium 40 mg PO 1X 11/03/22 Acetylcyst 20% Resp [Mucomyst 20% (FOR RESPIRATORY)*] 4 ml IH [id number] #30 vial 11/07/22 Ensure Enlive 237 ml PO TID #30 can 11/07/22 Folic Acid 1 mg PO DAILY #30 tab 11/07/22 New Medications: Acetylcyst 20% Resp [Mucomyst 20% (FOR RESPIRATORY)*] 4 ml IH [id number] #30 vial Ensure Enlive 237 ml PO TID #30 can Folic Acid 1 mg PO DAILY #30 tab Diet: AHA Activity: Fall precautions Followup: Unknown,U [Primary Care Provider] - 1-2 Weeks Time spent managing pt's care (in minutes): 37
--- NOTE | 2022-11-07 17:19 | P.PN ---
Subjective Date of Service: 11/07/22 Chief Complaint: Acute CVA/TIA No major changes from yesterday. Patient reports multiple bowel movements. She is stable on room air. Physical Examination - Vital Signs Temperature: 98.0 F Blood Pressure: 98/52 Pulse: 93 Respirations: 18 Pulse Ox (%): 92 Assessment And Plan - Current Problems (Diagnosis) (1) History of CVA (cerebrovascular accident) Current Visit: Yes Status: Acute (2) Acute CVA (cerebrovascular accident) Current Visit: Yes Status: Acute (3) Breast cancer Current Visit: Yes Status: Chronic Qualifiers: Breast location: unspecified site of breast Estrogen receptor status: unspecified Patient sex: female Laterality: right Qualified Code(s): C50.911 - Malignant neoplasm of unspecified site of right female breast (4) HTN (hypertension) Current Visit: Yes Status: Chronic Qualifiers: Hypertension type: primary hypertension Qualified Code(s): I10 - Essential (primary) hypertension (5) BMI 40.0-44.9, adult Current Visit: No Status: Acute - Plan Physical Exam General: Alert, In no apparent distress Neck: Supple, 2+ carotid pulse no bruit Respiratory: Clear to auscultation bilaterally, Normal air movement Cardiovascular: Regular rate/rhythm, Normal S1 S2 Gastrointestinal: Normal bowel sounds, No tenderness Musculoskeletal: No tenderness Integumentary: No rashes Neurological: Normal affect, normal strength-all extremities, abnormal gait. Plan: Repeat CT head 24 hours post TNKase shows no acute disease, no hemorrhage MRI of the brain shows no acute disease. MRA of the brain and neck unremarkable. Neurology input appreciated. Patient's symptoms could be related to TIA or late effect of stroke. Continue PT and OT. Patient with a history of CVA in the past. 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 Recommend inpatient rehab pending insurance authorization. Continue aspirin and Plavix and folic acid LDL within target. Continue home dose statin. No problem with swallowing. Diet as tolerated. Mucomyst inhaler for throat secretions. Social service assisting with arrangement for inpatient rehab at [facility].
[2022-11-07] MEDS: ATORVASTATIN 20 MG TAB PO SCH (20:57)
[2022-11-07] MEDS ORDERED: LOPERAMIDE HCL 2 MG CAPSULE PO STA (22:46)
[2022-11-08] MEDS: ACETYLCYST 20% 4 ML VIAL IH SCH ×4 (02:00→20:10)
[2022-11-08] MEDS: INSULIN -REGULAR HUMAN 50 UNIT/0.5 ML ML SQ SCH ×4 (07:30→21:00)
[2022-11-08] MEDS: ENSURE ENLIVE 237 ML CAN PO SCH ×3 (08:30→21:00)
[2022-11-08] MEDS: FOLIC ACID 1 MG TABLET PO SCH (08:31)
[2022-11-08] MEDS: MAGNESIUM OXIDE 400 MG TAB PO SCH ×2 (08:31→21:00)
[2022-11-08] MEDS: GABAPENTIN 300 MG CAP PO SCH ×3 (08:31→21:00)
[2022-11-08] MEDS: CLOPIDOGREL 75 MG TABLET PO SCH (08:31)
[2022-11-08] MEDS: ALBUTEROL 2.5 MG/3 ML NEB SOL NEB PRN ×3 (08:31→20:10)
[2022-11-08 13:56] LABS: C.diff Antigen/Toxin Ag neg : Tox neg (NEG : NEG)
--- NOTE | 2022-11-08 15:39 | P.PN ---
Date of Service: 11/08/22 Subjective overall feels better, losing voice over last few days reports loose/watery diarrhea, progressive over last 4 days, with 4-5 BMs overnight/this morning no abd pain, no fever/chills ROS: A complete review of systems was performed and is negative except as mentioned above Physical Exam Gen: Alert, In no apparent distress HEENT: normal conjunctiva, sclera anicteric Respiratory: nonlabored respirations, +cough Cardiovascular: Regular rate/rhythm, Normal S1 S2 Gastrointestinal: soft, nontender, nondistended Neurological: Normal affect, normal strength-all extremities, abnormal gait. vitals reviewed Problem List: Acute CVA with LLE weakness h/o CVA Breast cancer HTN Morbid obesity Repeat CT head 24hrs s/p TNKase shows no acute disease, no hemorrhage MRI of the brain: no acute disease. MRA of the brain and neck unremarkable. Neurology consulted - Patient's symptoms could be related to TIA or late effect of stroke. Continue PT and OT. Patient with a history of CVA in the past. 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 Recommend inpatient rehab pending insurance authorization. Continue aspirin and Plavix and folic acid LDL within target. Continue home dose statin. No problem with swallowing. Diet as tolerated. Mucomyst inhaler for throat secretions. Dispo: Social service assisting with arrangement for inpatient rehab at [facility]. pending approval
[2022-11-08] MEDS: LOPERAMIDE HCL 2 MG CAPSULE PO PRN (21:12)
[2022-11-08] MEDS: ATORVASTATIN 20 MG TAB PO SCH (21:12)
[2022-11-09] MEDS: ALBUTEROL 2.5 MG/3 ML NEB SOL NEB PRN ×3 (02:00→15:05)
[2022-11-09] MEDS: ACETYLCYST 20% 4 ML VIAL IH SCH ×4 (02:00→20:15)
[2022-11-09 04:40] LABS: Potassium 3.2 mmol/L (3.5-5.1)
[2022-11-09] MEDS: INSULIN -REGULAR HUMAN 50 UNIT/0.5 ML ML SQ SCH ×4 (07:30→21:00)
[2022-11-09] MEDS: MAGNESIUM OXIDE 400 MG TAB PO SCH ×2 (07:58→21:34)
[2022-11-09] MEDS: FOLIC ACID 1 MG TABLET PO SCH (07:58)
[2022-11-09] MEDS: CLOPIDOGREL 75 MG TABLET PO SCH (07:58)
[2022-11-09] MEDS: ENSURE ENLIVE 237 ML CAN PO SCH ×3 (07:58→21:00)
--- NOTE | 2022-11-09 08:29 | RAD REPORT ---
EXAM DESCRIPTION: RAD - Chest Single View - 11/09/2022 6:52 am CLINICAL HISTORY: hypoxia, eval pulm edema/aspiration Chest pain. COMPARISON: Chest Single View dated 11/02/2022; Chest Single View dated 05/18/2022; Chest Single View dated 05/11/2022; Chest Single View dated 05/09/2022 FINDINGS: Portable technique limits examination quality. Bilateral pulmonary opacities are noted, unchanged since 11/02/2022. These are largely chronic in jenna earance. The heart is upper abdomen are normal. No displaced fractures. IMPRESSION: Bilateral pulmonary opacities are likely chronic and unchanged since comparative studies .
[2022-11-09] MEDS: GABAPENTIN 300 MG CAP PO SCH ×2 (09:00→21:00)
[2022-11-09] MEDS ORDERED: POTASSIUM 25 MEQ EFFERV TAB PO ONE (09:00)
[2022-11-09] MEDS: LOPERAMIDE HCL 2 MG CAPSULE PO PRN ×2 (13:17→21:44)
--- NOTE | 2022-11-09 20:43 | P.PN ---
Date of Service: 11/09/22 Subjective feels about the same diarrhea improving not much appetite - metallic taste from chemo tolerating ensure 1-2/day BP slightly lower, denies dizziness/lightheadedness ROS: A complete review of systems was performed and is negative except as mentioned above Physical Exam Gen: Alert, In no apparent distress HEENT: normal conjunctiva, sclera anicteric Respiratory: nonlabored respirations, +cough Cardiovascular: Regular rate/rhythm, Normal S1 S2 Gastrointestinal: soft, nontender, nondistended Neurological: Normal affect, hoarse/weak voice; moves all extremities vitals reviewed Problem List: Acute CVA with LLE weakness h/o prior CVA Breast cancer on chemotherapy HTN Morbid obesity Repeat CT head 24hrs s/p TNKase shows no acute disease, no hemorrhage MRI of the brain: no acute disease. MRA of the brain and neck unremarkable. Neurology consulted - Patient's symptoms could be related to TIA or late effect of stroke. Continue PT and OT. Patient with a history of CVA in the past. 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 Recommend inpatient rehab pending insurance authorization. Continue aspirin and Plavix and folic acid LDL within target. Continue home dose statin. No problem with swallowing. Diet as tolerated. Dispo: Social service assisting with arrangement for inpatient rehab at [facility]. pending approval
[2022-11-09] MEDS: Banana Flakes/T-Galactooligos 1 Dose Packet PO SCH (21:00)
[2022-11-09] MEDS: ATORVASTATIN 20 MG TAB PO SCH (21:33)
[2022-11-10] MEDS: LOPERAMIDE HCL 2 MG CAPSULE PO PRN (05:39)
[2022-11-10 06:34] LABS: Hematocrit 25.6 % (36.0-45.0); MCV 91.7 fL (80-100); MPV 10.6 fL (7.6-11.3); RBC Red Blood Cell Count 2.79 M/uL (3.86-4.86)
[2022-11-10 06:47] LABS: Potassium 3.4 mmol/L (3.5-5.1)
[2022-11-10] MEDS: INSULIN -REGULAR HUMAN 50 UNIT/0.5 ML ML SQ SCH ×4 (07:30→20:19)
[2022-11-10] MEDS ORDERED: NA CHLORIDE 0.9% 1,000 ML ONE (08:03)
[2022-11-10] MEDS: NA CHLORIDE 0.9% 500 ML IV ONE ×2 (08:16→12:00)
[2022-11-10] MEDS: Banana Flakes/T-Galactooligos 1 Dose Packet PO SCH ×2 (09:00→20:18)
[2022-11-10] MEDS: GABAPENTIN 300 MG CAP PO SCH ×2 (09:00→20:19)
[2022-11-10] MEDS: ENSURE ENLIVE 237 ML CAN PO SCH ×3 (09:00→20:18)
[2022-11-10] MEDS ORDERED: Ringers Lactate 1,000 ML IV SCH (10:00)
[2022-11-10] MEDS: CLOPIDOGREL 75 MG TABLET PO SCH (11:06)
[2022-11-10] MEDS: MAGNESIUM OXIDE 400 MG TAB PO SCH ×2 (11:06→20:16)
[2022-11-10] MEDS: FOLIC ACID 1 MG TABLET PO SCH (11:06)
[2022-11-10] MEDS: predniSONE 20 MG TAB PO SCH ×2 (11:06→20:16)
--- NOTE | 2022-11-10 11:21 | RAD REPORT ---
EXAM DESCRIPTION: CT - Thorax Wo Con - 11/10/2022 10:44 am CLINICAL HISTORY: hypoxia/pneumonia COMPARISON: Chest Abdomen W Con dated 08/25/2022; Chest Single View dated 11/09/2022 TECHNIQUE: Axial 5 mm thick images of the chest were obtained without IV contrast. All CT scans are performed using dose optimization technique as appropriate and may include automated exposure control or mA/KV adjustment according to patient size. FINDINGS: A noncontrast study was performed due to limited IV access. Partially imaged thyroid gland appears enlarged and nodular. This is not grossly different from Novem 2021 imaging. Patchy alveolar opacities are present in the posteroinferior right upper lobe along the major fissure . Interstitial thickening is mild. No dense consolidation. Posterior gutter opacification is likely a telectasis. No pleural thickening or pleural effusion. No pneumothorax. No abnormal mediastinal or hilar masses or lymphadenopathy seen. No gross aortic or pulmonary artery finding suspected. Assessment is limited in the absence of IV contrast. Few small 10 mm or less reac tive type mediastinal lymph nodes are seen. No chest wall mass or abnormal axillary lymphadenopathy. Patient appears to be status post bilateral mastectomy. IMPRESSION: Minimal area of patchy airspace opacification in the right upper lobe would be consisten t with a minimal pneumonia. Mildly prominent interstitial pattern that may be chronic. A mild interstitial edema or interstitial infiltrate is possible. Pulmonary emboli cannot be assessed on this study. No suspicious mediastinal or hilar finding.
[2022-11-10] MEDS ORDERED: VANCOMYCIN 2.25 GM in NA CHLORIDE 0.9% 500 ML IVPB ONE (12:00)
[2022-11-10] MEDS ORDERED: Meropenem 1,000 MG in NA CHLORIDE 0.9% 100 ML IV SCH (12:00)
--- NOTE | 2022-11-10 13:00 | P.CNS ---
Chief Complaint: Acute CVA/TIA History of Present Illness: Patient is a 67-year-old female originally was admitted for further evaluation and management of acute CVA on 11/02. Today patient's WBC is abnormal with 14.4, and CT chest indicates "Minimal area of patchy airspace opacification in the right upper lobe would be consistent with a minimal pneumonia. Mildly prominent interstitial pattern that may be chronic. A mild interstitial edema or interstitial infiltrate is possible. Pulmonary emboli cannot be assessed on this study. No suspicious mediastinal or hilar finding." ID has been consulted for IV antibiotics recommendation and management. Allergies pineapple Allergy (Verified 05/03/22 09:00) Anaphylaxis Home Medications: Atorvastatin Calcium [Lipitor] 40 mg PO BEDTIME #30 tab 07/21/21 Clopidogrel Bisulfate [Plavix*] 75 mg PO DAILY #30 tablet 07/21/21 Metformin ER [Glucophage ER*] 500 mg PO BIDWM #60 tab.sa 07/21/21 LORazepam [Ativan*] 0.5 mg PO BID PRN 05/03/22 Aspirin 81 mg PO DAILY #30 tab.chew 05/13/22 Losartan Potassium [Cozaar*] 100 mg PO DAILY 06/14/22 Magnesium Oxide 400 mg PO BID 06/14/22 Gabapentin 300 mg PO BID 11/03/22 Glimepiride 2 mg PO DAILY 11/03/22 Pantoprazole Sodium 40 mg PO 1X 11/03/22 Acetylcyst 20% Resp [Mucomyst 20% (FOR RESPIRATORY)*] 4 ml IH [id number] #30 vial 11/07/22 Ensure Enlive 237 ml PO TID #30 can 11/07/22 Folic Acid 1 mg PO DAILY #30 tab 11/07/22 - Past Medical/Surgical History Diabetic: Yes -: HTN -: NIDDM -: TIAs -: tobacco abuse -: CVAs -: Breast Cancer -: Bilateral mastectomy -: appendectomy -: splenectomy Psychosocial/ Personal History: Patient lives at home with her daughters. - Family History Father History Unknown: Yes Notes: Patient was adopted - Social History Smoking Status: Unknown if ever smoked Alcohol use: No CD- Drugs: No Caffeine use: Yes Place of Residence: Home Review of Systems Eyes: Vision Change Gastrointestinal: Diarrhea (3-5 times daily after starting of chemotherapy) Integumentary: Other (Bilateral Mastectomy due to breast cancer) Neurological: Weakness (of left side secondary to stroke) Lymphatics: Other (spleen removal at age of 9) Physical Examination Temp Pulse Resp BP Pulse Ox 98.8 F 98 H 24 H 97/53 L 90 L 11/10/22 12:00 11/10/22 12:00 11/10/22 12:00 11/10/22 12:00 11/10/22 12:00 General: Alert, In no apparent distress, Oriented x3 HEENT: Other (hoarse voice) Respiratory: Crackles/rales (right lower lobe), Other (2 L of oxygen support; mild dry cough) Cardiovascular: No edema, Normal S1 S2 Gastrointestinal: Normal bowel sounds, Soft and benign Musculoskeletal: Other (left side weakness due to stroke) Integumentary: No rashes, No breakdown, No tenderness/swelling, No erythema Neurological: Normal speech, Normal tone, Normal affect Urinary: Other (Purewick in place) Current medications Acetaminophen (Acetaminophen 500 Mg Tab) 500 mg PO Q4HP PRN PRN Reason: Pain scale 2-4 (Mild) Albuterol Sulfate (Albuterol 2.5 Mg/3 Ml Neb Paz) 2.5 mg NEB [id number] PRN PRN Reason: SHORTNESS OF BREATH Last Admin: 11/09/22 15:05 Dose: 2.5 mg Atorvastatin Calcium (Atorvastatin 20 Mg Tab) 40 mg PO BEDTIME [facility] Last Admin: 11/09/22 21:33 Dose: 40 mg Clopidogrel Bisulfate (Clopidogrel 75 Mg Tablet) 75 mg PO DAILY [facility] Last Admin: 11/10/22 11:06 Dose: 75 mg Folic Acid (Folic Acid 1 Mg Tablet) 1 mg PO DAILY [facility] Last Admin: 11/10/22 11:06 Dose: 1 mg Gabapentin (Gabapentin 300 Mg Cap) 300 mg PO BID [facility] Last Admin: 11/10/22 09:00 Dose: Not Given Lactated Ringer's (Lactated Ringers) 1,000 mls @ 75 mls/hr IV .[id number] [facility] Last Admin: 11/10/22 11:06 Dose: 1,000 mls Vancomycin HCl 2.25 gm/ Sodium (Chloride) 500 mls @ 250 mls/hr IVPB 1X ONE Stop: 11/10/22 13:59 Vancomycin HCl 1.5 gm/ Sodium (Chloride) 500 mls @ 333.333 mls/hr IVPB Q18H [facility] Meropenem 1,000 mg/ Sodium (Chloride) 100 mls @ 200 mls/hr IV Q8H [facility] Insulin Human Regular (Insulin -Regular Human 50 Unit/0.5 Ml Ml) 0 unit SQ ACHS [facility]; Protocol Last Admin: 11/10/22 11:30 Dose: Not Given Loperamide HCl (Loperamide Hcl 2 Mg Capsule) 2 mg PO Q4H PRN PRN Reason: DIARRHEA Last Admin: 11/10/22 05:39 Dose: 2 mg Magnesium Oxide (Magnesium Oxide 400 Mg Tab) 400 mg PO BID [facility] Last Admin: 11/10/22 11:06 Dose: 400 mg Nutritional Formula (Ensure Enlive 237 Ml Can) 237 ml PO TID [facility] Last Admin: 11/10/22 09:00 Dose: Not Given Ondansetron HCl (Ondansetron 4 Mg/2 Ml Vial) 4 mg IV Q6HP PRN PRN Reason: NAUSEA / VOMITING Prednisone (Prednisone 20 Mg Tab) 20 mg PO BID [facility] Last Admin: 11/10/22 11:06 Dose: 20 mg Sodium Chloride (Flush Normal Saline 10 Ml) 10 ml IV BID [facility] Last Admin: 11/10/22 09:00 Dose: Not Given Imagings Data: 11/10 CT Chest: IMPRESSION: Minimal area of patchy airspace opacification in the right upper lobe would be consistent with a minimal pneumonia. Mildly prominent interstitial pattern that may be chronic. A mild interstitial edema or interstitial infiltrate is possible. Pulmonary emboli cannot be assessed on this study. No suspicious mediastinal or hilar finding 11/09 Chest Xray: FINDINGS: Portable technique limits examination quality. Bilateral pulmonary opacities are noted, unchanged since 11/02/2022. These are largely chronic in appearance. The heart is upper abdomen are normal. No displaced fractures. IMPRESSION: Bilateral pulmonary opacities are likely chronic and unchanged since comparative studies. - Problems (1) Pneumonia Current Visit: Yes Status: Acute Plan: Cultures: 11/10 BC: Pending 11/10 UC: Pending 11/08 Stool: Negative for C. Diff Antibiotics: 11/10 Starts: IV Meropenem and Vancomcyin (11/10 ->) Recommendation: - Continue current IV Meropnem and Vancomycin from now and ID will recommend further when culture is available - Consider adding probiotics BID for diarrhea (3-5 times daily, per patient) (2) Trichomoniasis Current Visit: Yes Status: Acute Plan: Culture: 11/10 UA: Positive with Trichomoniasis Recommendation: - PO Metronidazole 500 mg, twice daily for total of 7 days duration Conclusions/Impression: - Pneumonia: Recommend to continue IV Meropnem and Vancomycin from now and ID will recommend further when culture is available - Trichomoniasis: PO Metronidazole 500 mg, twice daily for total of 7 days duration - Acute CVA with LLE weakness - History of prior CVA - Breast cancer on chemotherapy - Bilateral mastectomy - HTN - Morbid obesity - Tobacco abuse - Appendectomy - Splenectomy ID will monitor the patient closely for signs of infection with fever and WBC trends Case has been discussed with Dr. Dean N Thank you Dr. Mckeon for consult
[2022-11-10] MEDS ORDERED: NA CHLORIDE 0.9% 100 ML ONE ×2 (15:06→22:39)
[2022-11-10] MEDS ORDERED: Meropenem 1000 MG/VIAL IV ONE ×2 (15:06→22:38)
[2022-11-10 15:23] LABS: Hematocrit 33.1 % (36.0-45.0); MCV 91.2 fL (80-100); MPV 11.3 fL (7.6-11.3); RBC Red Blood Cell Count 3.63 M/uL (3.86-4.86)
[2022-11-10 15:33] LABS: Specific Gravity 1.014 (1.005-1.030); Urine Bacteria <20 /HPF (<20); Urine Bilirubin NEGATIVE (Negative); Urine Blood 2+ (Negative); Urine Clarity Turbid (Clear); Urine Color Yellow (Yellow); Urine Glucose NEGATIVE (Negative); Urine Mucus Slight /HPF (None Seen); Urine Protein 1+ (Negative); Urine RBC 21-50 /HPF (None Seen); Urine Trichomonas Present /HPF (None Seen); Urine Urobilinogen Normal (Normal)
[2022-11-10] MEDS ORDERED: POTASSIUM CL SA 10 MEQ TAB PO ONE (15:39)
[2022-11-10] MEDS: METRONIDAZOLE 500mg IVPB 500 MG/100 ML BAG IV SCH (20:16)
[2022-11-10] MEDS: ATORVASTATIN 20 MG TAB PO SCH (20:22)
[2022-11-10] MEDS: Ringers Lactate 1,000 ML IV SCH (20:23)
--- NOTE | 2022-11-10 20:51 | P.PN ---
Date of Service: 11/10/22 Subjective more fatigued this morning patient's BP low; minimal PO intake yesterday diarrhea improving feels nausea, diarrhea, metallic taste as usual after chemo ROS: A complete review of systems was performed and is negative except as mentioned above Physical Exam Gen: Alert, Oriented x3 HEENT: normal conjunctiva, sclera anicteric Respiratory: mild labored respirations, wheeze, +cough Cardiovascular: Regular rate/rhythm, Normal S1 S2 Gastrointestinal: soft, nontender, nondistended Neurological: Normal affect, hoarse/weak voice; moves all extremities vitals reviewed Problem List: Acute CVA with LLE weakness Sepsis secondary to UTI h/o prior CVA Breast cancer on chemotherapy HTN Morbid obesity Repeat CT head 24hrs s/p TNKase shows no acute disease, no hemorrhage MRI of the brain: no acute disease. MRA of the brain and neck unremarkable. Neurology consulted - Patient's symptoms could be related to TIA or late effect of stroke. Continue PT and OT. Patient with a history of CVA in the past. 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 Recommend inpatient rehab pending insurance authorization. Continue aspirin and Plavix and folic acid LDL within target. Continue home dose statin. No problem with swallowing. Diet as tolerated. Sepsis suspect UTI vs pneumonia UA pending CT chest pending empiric antibiotics lactate ok pt hypotensive from dehydration; responded to small IVF bolus; accurate BP readings >90 systolic after initial small bolus 30cc/kg bolus not given, possible pulm edema on CXR, pt without severe sepsis, no septic shock acute hypoxica respiratory failure unclear etiology wean O2 possible PE; CTA chest ordered, however patient without large enough IV Access CT chest ordered suspect undiagnosed COPD; 50pk/yr smoking Dispo: was trying for inpatient rehab, on hold given sepsis
[2022-11-11] MEDS: Meropenem 1,000 MG in NA CHLORIDE 0.9% 100 ML IV SCH ×3 (00:42→17:00)
[2022-11-11] MEDS: Ringers Lactate 1,000 ML IV SCH ×4 (02:55→20:23)
[2022-11-11] MEDS ORDERED: VANCOMYCIN 1.5 GM in NA CHLORIDE 0.9% 500 ML IVPB SCH ×2 (06:00→10:00)
--- NOTE | 2022-11-11 06:57 | P.PN ---
Date of Service: 11/11/22 Subjective feeling better, voice coming back no dizziness/lightheadedness denies dysuria, no discharge diarrhea improving ROS: A complete review of systems was performed and is negative except as mentioned above Physical Exam Gen: Alert, Oriented x3 HEENT: normal conjunctiva, sclera anicteric Respiratory: non labored respirations, wheeze, +cough Cardiovascular: Regular rate/rhythm, Normal S1 S2 Gastrointestinal: soft, nontender, nondistended Neurological: Normal affect, hoarse/weak voice; moves all extremities vitals reviewed Problem List: Acute CVA with LLE weakness Sepsis secondary to UTI h/o prior CVA acute on chronic COPD Exacerbation, new/undiagnosed Breast cancer on chemotherapy HTN Morbid obesity Repeat CT head 24hrs s/p TNKase shows no acute disease, no hemorrhage MRI of the brain: no acute disease. MRA of the brain and neck unremarkable. Neurology consulted - Patient's symptoms could be related to TIA or late effect of stroke. Continue PT and OT. Patient with a history of CVA in the past. 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 Recommend inpatient rehab pending insurance authorization. Continue aspirin and Plavix and folic acid LDL within target. Continue home dose statin. No problem with swallowing. Diet as tolerated. Sepsis suspect UTI vs pneumonia UA +bacteruria, +leuk est, +nitrite, +trichimonas merrem/vanc/flagyl empirically started 11/10 vanc dc'd 11/11 CT chest +mild opacities, unlikely pneumonia Pulm consulted lactate ok pt hypotensive from dehydration; responded to small IVF bolus; accurate BP readings >90 systolic after initial small bolus 30cc/kg bolus not given, possible pulm edema on CXR, pt without severe sepsis, no septic shock acute hypoxic respiratory failure unclear etiology, suspect acute copd exacerbation - no prior diagnosis / testing wean O2 possible PE; CTA chest ordered, however patient without large enough IV Access CT chest: chronic findings, mild RUL opacities 50pk/yr smoking Dispo: trying for inpatient rehab, on hold given sepsis improving
[2022-11-11] MEDS: INSULIN -REGULAR HUMAN 50 UNIT/0.5 ML ML SQ SCH ×4 (07:30→21:00)
[2022-11-11] MEDS: Banana Flakes/T-Galactooligos 1 Dose Packet PO SCH ×2 (07:36→21:00)
[2022-11-11] MEDS: ENSURE ENLIVE 237 ML CAN PO SCH ×3 (07:36→21:00)
[2022-11-11] MEDS: GABAPENTIN 300 MG CAP PO SCH ×2 (07:36→21:00)
[2022-11-11] MEDS ORDERED: Meropenem 1000 MG/VIAL IV ONE ×2 (08:25→17:37)
[2022-11-11] MEDS ORDERED: NA CHLORIDE 0.9% 100 ML ONE ×2 (08:26→17:38)
[2022-11-11] MEDS: FOLIC ACID 1 MG TABLET PO SCH (08:39)
[2022-11-11] MEDS: LACTOBACILLUS/ACIDOPHILUS TAB PO SCH ×2 (08:40→21:28)
[2022-11-11] MEDS: MAGNESIUM OXIDE 400 MG TAB PO SCH ×2 (08:40→21:29)
[2022-11-11] MEDS: ENOXAPARIN 40 MG/0.4 ML SQ SCH (08:40)
[2022-11-11] MEDS: predniSONE 20 MG TAB PO SCH ×2 (08:40→21:27)
[2022-11-11] MEDS: CLOPIDOGREL 75 MG TABLET PO SCH (08:40)
[2022-11-11] MEDS: METRONIDAZOLE 500mg IVPB 500 MG/100 ML BAG IV SCH ×2 (08:40→21:28)
--- NOTE | 2022-11-11 12:54 | P.CNS ---
Date of Consult: 11/11/22 Reason for Consult: COPD exacerbation Chief Complaint: Acute CVA/TIA History of Present Illness: Patient is 67 years of age with history of stroke hypertension metabolic syndrome tobacco user has a history of breast cancer treated with chemotherapy presented with left leg weakness unable to walk was consulted his white count is mildly elevated has dyspnea on exertion Apparently patient deteriorated yesterday developed low blood pressure more hypoxemia and wheezing Allergies pineapple Allergy (Verified 05/03/22 09:00) Anaphylaxis Home Medications: Atorvastatin Calcium [Lipitor] 40 mg PO BEDTIME #30 tab 07/21/21 Clopidogrel Bisulfate [Plavix*] 75 mg PO DAILY #30 tablet 07/21/21 Metformin ER [Glucophage ER*] 500 mg PO BIDWM #60 tab.sa 07/21/21 LORazepam [Ativan*] 0.5 mg PO BID PRN 05/03/22 Aspirin 81 mg PO DAILY #30 tab.chew 05/13/22 Losartan Potassium [Cozaar*] 100 mg PO DAILY 06/14/22 Magnesium Oxide 400 mg PO BID 06/14/22 Gabapentin 300 mg PO BID 11/03/22 Glimepiride 2 mg PO DAILY 11/03/22 Pantoprazole Sodium 40 mg PO 1X 11/03/22 Acetylcyst 20% Resp [Mucomyst 20% (FOR RESPIRATORY)*] 4 ml IH [id number] #30 vial 11/07/22 Ensure Enlive 237 ml PO TID #30 can 11/07/22 Folic Acid 1 mg PO DAILY #30 tab 11/07/22 - Past Medical/Surgical History Diabetic: Yes -: HTN -: NIDDM -: TIAs -: tobacco abuse -: CVAs -: Breast Cancer -: Bilateral mastectomy -: appendectomy -: splenectomy Psychosocial/ Personal History: Patient lives at home with her daughters. - Family History Father History Unknown: Yes Notes: Patient was adopted - Social History Smoking Status: Unknown if ever smoked Alcohol use: No CD- Drugs: No Caffeine use: Yes Place of Residence: Home Review of Systems 10-point ROS is otherwise unremarkable General: Weakness Respiratory: Cough, Shortness of Breath Physical Examination Temp Pulse Resp BP Pulse Ox 97.0 F 71 16 105/64 96 11/11/22 11:56 11/11/22 11:56 11/11/22 11:56 11/11/22 11:56 11/11/22 11:56 General: Alert, Oriented x3 HEENT: Atraumatic Neck: Supple Respiratory: Clear to auscultation bilaterally, Diminished Cardiovascular: No edema, Regular rate/rhythm, Normal S1 S2 - Problems (1) COPD (chronic obstructive pulmonary disease) Current Visit: Yes Status: Acute Plan: Patient is 67 years of age admitted with weakness extensive diagnostic data did not reveal any evidence of acute infarct or compromised cerebral circulation does have a history of remote infarct she is a heavy smoker currently treated for breast cancer with chemotherapy CT scan shows minimal changes coughing up some productive phlegm I will order some sputum culture patient does not appear to be septic although she is hypoxic does not appear to be septic recommend discharging home on an inhaled bronchodilator DC steroid and levofloxacin also possibility of thromboembolism although I doubt can do a VQ scan unable to do a CT angiogram due to small peripheral IV so ordered a D-dimer and is not actively septic cultures pending may have a possible urinary tract infection on broad- spectrum antibiotics possible discharge Qualifiers: COPD type: unspecified COPD Qualified Code(s): J44.9 - Chronic obstructive pulmonary disease, unspecified
--- NOTE | 2022-11-11 20:32 | PN ---
Subjective: Patient lying in bed. No new acute event. Chart reviewed. Objective: Vital Signs: Temperature 97, pulse 77, respirations 14, blood pressure 102/51. Lungs: Basal crackles. Heart: S1, S2. Regular. Abdomen: Soft, nontender. Bowel sounds present. Extremities: No edema. Laboratory Data: WBC 15.4, hemoglobin 10.8, platelets are 400. Chemistry shows sugars are 171. Cul tures are negative to date. Assessment And Plan: Chronic obstructive pulmonary disease, sepsis secondary to urinary tract infect ion, leukocytosis, anemia of chronic disease, history of stroke, breast cancer, on chemotherapy. CT chest is pending. Chest x-ray shows possible right upper lobe infiltrate. Continue current antibiot ic, meropenem, Flagyl, and vancomycin. We will follow the patient as needed. NF/MODL Voice ID: [id number] Report ID: [id number]
[2022-11-11] MEDS: DULERA 200/5 (MOMETASONE/FORMOTEROL) INHALER IH SCH (21:00)
[2022-11-11 21:07] LABS: Hematocrit 28.5 % (36.0-45.0); MCV 90.6 fL (80-100); MPV 10.7 fL (7.6-11.3); RBC Red Blood Cell Count 3.15 M/uL (3.86-4.86)
[2022-11-11 21:24] LABS: Albumin 2.4 g/dL (3.4-5.0); Bilirubin Total 0.4 mg/dL (0.2-1.0); Magnesium 2.3 mg/dL (1.6-2.4); Potassium 4.4 mmol/L (3.5-5.1); Protein, Total 5.7 g/dL (6.4-8.2)
[2022-11-11] MEDS: ATORVASTATIN 20 MG TAB PO SCH (21:28)
[2022-11-12] MEDS ORDERED: NA CHLORIDE 0.9% 100 ML ONE ×2 (00:16→16:54)
[2022-11-12] MEDS ORDERED: Meropenem 1000 MG/VIAL IV ONE ×2 (00:17→16:53)
[2022-11-12] MEDS: Meropenem 1,000 MG in NA CHLORIDE 0.9% 100 ML IV SCH ×3 (00:48→17:00)
[2022-11-12] MEDS: Ringers Lactate 1,000 ML IV SCH ×4 (00:54→20:50)
[2022-11-12] MEDS: INSULIN -REGULAR HUMAN 50 UNIT/0.5 ML ML SQ SCH ×4 (07:30→21:00)
--- NOTE | 2022-11-12 07:33 | P.PN ---
Date of Service: 11/12/22 Subjective feels better tolerated more PO no worsening of symptoms voice improving ROS: A complete review of systems was performed and is negative except as mentioned above Physical Exam Gen: Alert, Oriented x3 HEENT: normal conjunctiva, sclera anicteric Respiratory: non labored respirations, wheeze, +cough Cardiovascular: Regular rate/rhythm, Normal S1 S2 Gastrointestinal: soft, nontender, nondistended Neurological: Normal affect, hoarse voice; moves all extremities vitals reviewed Problem List: Acute CVA with LLE weakness Sepsis secondary to UTI h/o prior CVA acute on chronic COPD Exacerbation, new/undiagnosed Breast cancer on chemotherapy HTN Morbid obesity Repeat CT head 24hrs s/p TNKase shows no acute disease, no hemorrhage MRI of the brain: no acute disease. MRA of the brain and neck unremarkable. Neurology consulted - Patient's symptoms could be related to TIA or late effect of stroke. Continue PT and OT. Patient with a history of CVA in the past. 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 Recommend inpatient rehab pending insurance authorization - on hold, due to sepsis Continue aspirin and Plavix and folic acid LDL within target. Continue home dose statin. No problem with swallowing. Diet as tolerated. Sepsis suspect UTI vs pneumonia UA +bacteruria, +leuk est, +nitrite, +trichimonas merrem/vanc/flagyl empirically started 11/10 Ur culture: +GNR vanc dc'd 11/11 trichimonas - pt states no sexual activity in ~[address] chest +mild opacities, unlikely pneumonia Pulm consulted lactate ok pt hypotensive from dehydration; responded to small IVF bolus; accurate BP readings >90 systolic after initial small bolus 30cc/kg bolus not given, possible pulm edema on CXR, pt without severe sepsis, no septic shock acute hypoxic respiratory failure unclear etiology, suspect acute copd exacerbation - no prior diagnosis / testing wean O2 possible PE; CTA chest ordered, however patient without large enough IV Access; awaiting VQ scan CT chest: chronic findings, mild RUL opacities 50pk/yr smoking Dispo: trying for inpatient rehab, on hold given sepsis improving
[2022-11-12] MEDS: GABAPENTIN 300 MG CAP PO SCH ×2 (09:00→20:46)
[2022-11-12] MEDS: ENSURE ENLIVE 237 ML CAN PO SCH ×3 (09:00→20:46)
[2022-11-12] MEDS: MAGNESIUM OXIDE 400 MG TAB PO SCH ×2 (09:00→20:46)
[2022-11-12] MEDS: Banana Flakes/T-Galactooligos 1 Dose Packet PO SCH ×2 (09:00→20:45)
[2022-11-12] MEDS: DULERA 200/5 (MOMETASONE/FORMOTEROL) INHALER IH SCH ×2 (10:16→20:46)
[2022-11-12] MEDS: METRONIDAZOLE 500mg IVPB 500 MG/100 ML BAG IV SCH ×2 (10:16→20:45)
[2022-11-12] MEDS: ENOXAPARIN 40 MG/0.4 ML SQ SCH (10:17)
[2022-11-12] MEDS: FOLIC ACID 1 MG TABLET PO SCH (10:17)
[2022-11-12] MEDS: CLOPIDOGREL 75 MG TABLET PO SCH (10:17)
[2022-11-12] MEDS: LACTOBACILLUS/ACIDOPHILUS TAB PO SCH ×2 (10:18→20:46)
[2022-11-12] MEDS: predniSONE 20 MG TAB PO SCH ×2 (10:18→20:45)
--- NOTE | 2022-11-12 11:18 | RAD REPORT ---
EXAM DESCRIPTION: RAD - Chest Single View - 11/12/2022 11:01 am CLINICAL HISTORY: hypoxia, copd, f/u opacities COMPARISON: Chest Single View dated 11/09/2022; Chest Single View dated 11/02/2022; Chest Single View dated 05/18/2022; Chest Single View dated 05/11/2022; Thorax Wo Con dated 11/10/2022 FINDINGS: Lines: None. Lungs: Diffuse prominence of the pulmonary interstitium which is likely chronic. Mild increased opaci ties are present at the right lung base. Pleural: No significant pleural effusions or pneumothorax. Cardiac: Similar size and configuration. Mediastinum: Within normal limits. Bones: No acute fractures. Other: None IMPRESSION: Chronic changes with mild increased opacities at the right lung base reflect worsening p neumonia.
[2022-11-12 15:40] LABS: Absolute Lymphocytes (CBC) 3.5 K/uL (0.7-4.9); Hematocrit 28.2 % (36.0-45.0); Lymphocytes % 19.6 % (15.3-44.8); MCV 90.5 fL (80-100); MPV 10.7 fL (7.6-11.3); RBC Red Blood Cell Count 3.12 M/uL (3.86-4.86)
[2022-11-12 15:56] LABS: Albumin 2.3 g/dL (3.4-5.0); Bilirubin Total 0.4 mg/dL (0.2-1.0); C-Reactive Protein 28.2 mg/L (<3.00); Magnesium 2.2 mg/dL (1.6-2.4); Phosphorus 2.1 mg/dL (2.5-4.9); Potassium 4.4 mmol/L (3.5-5.1); Protein, Total 5.5 g/dL (6.4-8.2)
[2022-11-12 17:56] LABS: Platelet Estimate ADEQ
[2022-11-12 17:58] LABS: Blood Morphology Comment NOT SEEN (NOT SEEN)
[2022-11-12] MEDS: ATORVASTATIN 20 MG TAB PO SCH (20:46)
[2022-11-13] MEDS ORDERED: NA CHLORIDE 0.9% 100 ML ONE ×3 (00:32→15:14)
[2022-11-13] MEDS ORDERED: Meropenem 1000 MG/VIAL IV ONE ×3 (00:34→15:15)
[2022-11-13] MEDS: Meropenem 1,000 MG in NA CHLORIDE 0.9% 100 ML IV SCH ×3 (00:48→16:02)
--- NOTE | 2022-11-13 07:14 | P.PN ---
Date of Service: 11/13/22 Subjective slight improvement less dyspneic continues with fatigue ROS: A complete review of systems was performed and is negative except as mentioned above Physical Exam Gen: Alert, Oriented x3 HEENT: normal conjunctiva, sclera anicteric Respiratory: non labored respirations, m,ild wheeze, +cough Cardiovascular: Regular rate/rhythm, Normal S1 S2 Gastrointestinal: soft, nontender, nondistended Neurological: Normal affect, hoarse voice; moves all extremities vitals reviewed Problem List: Acute CVA with LLE weakness Sepsis secondary to UTI h/o prior CVA acute on chronic COPD Exacerbation, new/undiagnosed Breast cancer on chemotherapy HTN Morbid obesity Repeat CT head 24hrs s/p TNKase shows no acute disease, no hemorrhage MRI brain: no acute disease. MRA of the brain and neck unremarkable. Neurology consulted - Patient's symptoms could be related to TIA or late effect of stroke. Continue PT and OT. Patient with a history of CVA in the past. 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 Recommend inpatient rehab pending insurance authorization - on hold, due to sepsis; possibly restart Mon./Mon Continue aspirin and Plavix and folic acid LDL within target. Continue home dose statin. No problem with swallowing. Diet as tolerated. Sepsis, secondary to UTI suspect UTI vs pneumonia UA +bacteruria, +leuk est, +nitrite, +trichimonas merrem/vanc/flagyl empirically started 11/10 Ur culture: +GNR vanc dc'd 11/11 trichimonas - pt states no sexual activity in ~[address] chest +mild opacities, unlikely pneumonia Pulm consulted lactate ok pt hypotensive from dehydration; responded to small IVF bolus; accurate BP readings >90 systolic after initial small bolus 30cc/kg bolus not given, possible pulm edema on CXR, pt without severe sepsis, no septic shock acute hypoxic respiratory failure unclear etiology, suspect acute copd exacerbation - no prior diagnosis / testing wean O2 possible PE; CTA chest ordered, however patient without large enough IV Access; awaiting VQ scan CT chest: chronic findings, mild RUL opacities 50pk/yr smoking Dispo: trying for inpatient rehab, on hold given sepsis improving
[2022-11-13] MEDS: INSULIN -REGULAR HUMAN 50 UNIT/0.5 ML ML SQ SCH ×4 (07:26→21:00)
[2022-11-13] MEDS: Banana Flakes/T-Galactooligos 1 Dose Packet PO SCH ×2 (07:33→21:00)
[2022-11-13] MEDS: GABAPENTIN 300 MG CAP PO SCH ×2 (07:34→21:00)
[2022-11-13] MEDS: FOLIC ACID 1 MG TABLET PO SCH (07:57)
[2022-11-13] MEDS: CLOPIDOGREL 75 MG TABLET PO SCH (07:57)
[2022-11-13] MEDS: LACTOBACILLUS/ACIDOPHILUS TAB PO SCH ×2 (07:57→22:06)
[2022-11-13] MEDS: METRONIDAZOLE 500mg IVPB 500 MG/100 ML BAG IV SCH ×2 (07:58→22:04)
[2022-11-13] MEDS: ENOXAPARIN 40 MG/0.4 ML SQ SCH (07:58)
[2022-11-13] MEDS: DULERA 200/5 (MOMETASONE/FORMOTEROL) INHALER IH SCH ×2 (07:58→21:00)
[2022-11-13] MEDS: ENSURE ENLIVE 237 ML CAN PO SCH ×3 (07:58→21:00)
[2022-11-13] MEDS: predniSONE 20 MG TAB PO SCH (07:58)
[2022-11-13] MEDS: MAGNESIUM OXIDE 400 MG TAB PO SCH ×2 (07:59→22:06)
[2022-11-13 17:42] LABS: Magnesium 2.3 mg/dL (1.6-2.4); Potassium 4.3 mmol/L (3.5-5.1)
[2022-11-13 17:53] LABS: Absolute Lymphocytes (CBC) 6.4 K/uL (0.7-4.9); Hematocrit 30.2 % (36.0-45.0); Lymphocytes % 26.7 % (15.3-44.8); MCV 90.6 fL (80-100); MPV 11.2 fL (7.6-11.3); RBC Red Blood Cell Count 3.34 M/uL (3.86-4.86)
[2022-11-13 20:36] LABS: Anisocytosis 1+; Blood Morphology Comment NOTED (NOT SEEN); Burr Cells FEW; Platelet Estimate ADEQ; Poikilocytosis SLIGHT; Polychromasia 1+
[2022-11-13] MEDS: ATORVASTATIN 20 MG TAB PO SCH (22:06)
[2022-11-13] MEDS: BENZONATATE 100 MG CAP PO PRN (22:09)
[2022-11-14] MEDS ORDERED: Meropenem 1000 MG/VIAL IV ONE ×3 (00:42→17:36)
[2022-11-14] MEDS ORDERED: NA CHLORIDE 0.9% 100 ML ONE ×4 (00:44→17:41)
[2022-11-14] MEDS: Meropenem 1,000 MG in NA CHLORIDE 0.9% 100 ML IV SCH ×3 (01:01→17:00)
--- NOTE | 2022-11-14 06:31 | P.PN ---
Date of Service: 11/14/22 Subjective feels better; still on O2 supplementation voice improving no new/worsening symptoms appeal approved for rehab ROS: A complete review of systems was performed and is negative except as mentioned above Physical Exam Gen: Alert, Oriented x3 HEENT: normal conjunctiva, sclera anicteric Respiratory: non labored respirations, +cough; diminished at bases bilaterally Cardiovascular: Regular rate/rhythm, Normal S1 S2 Gastrointestinal: soft, nontender, nondistended Neurological: Normal affect, hoarse voice; moves all extremities, generalized weakness vitals reviewed Problem List: Acute CVA with LLE weakness Sepsis secondary to UTI h/o prior CVA acute on chronic COPD Exacerbation, new/undiagnosed Breast cancer on chemotherapy HTN Morbid obesity Repeat CT head 24hrs s/p TNKase shows no acute disease, no hemorrhage MRI brain: no acute disease. MRA of the brain and neck unremarkable. Neurology consulted - Patient's symptoms could be related to TIA or late effect of stroke. Continue PT and OT. Patient with a history of CVA in the past. 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 Recommend inpatient rehab pending insurance authorization - approved 11/14; pt not clinically stable yet Continue aspirin and Plavix and folic acid LDL within target. Continue home dose statin. No problem with swallowing. Diet as tolerated. Sepsis, secondary to UTI initially suspected UTI vs pneumonia UA +bacteruria, +leuk est, +nitrite, +trichimonas merrem/vanc/flagyl empirically started 11/10 Ur culture: +GNR vanc dc'd 11/11 trichimonas - pt states no sexual activity in ~[address] chest +mild opacities, unlikely pneumonia, but possible Pulm consulted, ID consulted lactate ok pt hypotensive from dehydration; responded to small IVF bolus; accurate BP readings >90 systolic after initial small bolus 30cc/kg bolus not given, possible pulm edema on CXR, pt without severe sepsis, no septic shock leukocytosis increasing, suspect steroid induced as patient is clinically improving acute hypoxic respiratory failure unclear etiology, suspect acute copd exacerbation - no prior diagnosis / testing wean O2 possible PE; CTA chest ordered, however patient without large enough IV Access; awaiting VQ scan CT chest: chronic findings, mild RUL opacities 50pk/yr smoking Dispo: inpatient rehab, on hold given sepsis
[2022-11-14] MEDS: INSULIN -REGULAR HUMAN 50 UNIT/0.5 ML ML SQ SCH ×4 (07:30→21:00)
[2022-11-14 08:13] LABS: Absolute Lymphocytes (CBC) 12.3 K/uL (0.7-4.9); Hematocrit 31.3 % (36.0-45.0); Lymphocytes % 42.9 % (15.3-44.8); MCV 91.5 fL (80-100); MPV 11.1 fL (7.6-11.3); RBC Red Blood Cell Count 3.42 M/uL (3.86-4.86)
[2022-11-14 08:14] LABS: Potassium 4.1 mmol/L (3.5-5.1)
--- NOTE | 2022-11-14 08:53 | P.PN ---
Subjective Date of Service: 11/14/22 Chief Complaint: Acute CVA/TIA Patient sitting in the chair in good spirit with family member at the bedside. Reported experiencing more loose stool. ID will order stool to r/o C. diff Physical Examination - Vital Signs Temperature: 98.3 F Blood Pressure: 115/68 Pulse: 83 Respirations: 12 Pulse Ox (%): 91 - Physical Exam General: Alert, In no apparent distress, Oriented x3 Respiratory: Clear to auscultation bilaterally, Other (5LNC) Cardiovascular: No edema, Normal S1 S2 Gastrointestinal: Normal bowel sounds Musculoskeletal: Other (Left side weakness due to stroke) Integumentary: No rashes, No breakdown, No tenderness/swelling, No erythema Neurological: Normal speech, Normal tone, Normal affect - Studies Current medications: Acetaminophen (Acetaminophen 500 Mg Tab) 500 mg PO Q4HP PRN PRN Reason: Pain scale 2-4 (Mild) Albuterol Sulfate (Albuterol 2.5 Mg/3 Ml Neb Paz) 2.5 mg NEB [id number] PRN PRN Reason: SHORTNESS OF BREATH Last Admin: 11/09/22 15:05 Dose: 2.5 mg Atorvastatin Calcium (Atorvastatin 20 Mg Tab) 40 mg PO BEDTIME [facility] Last Admin: 11/13/22 22:06 Dose: 40 mg Benzonatate (Benzonatate 100 Mg Cap) 200 mg PO TID PRN PRN Reason: COUGH Last Admin: 11/13/22 22:09 Dose: 200 mg Clopidogrel Bisulfate (Clopidogrel 75 Mg Tablet) 75 mg PO DAILY [facility] Last Admin: 11/13/22 07:57 Dose: 75 mg Enoxaparin Sodium (Enoxaparin 40 Mg/0.4 Ml) 40 mg SQ DAILY [facility] Last Admin: 11/13/22 07:58 Dose: 40 mg Folic Acid (Folic Acid 1 Mg Tablet) 1 mg PO DAILY [facility] Last Admin: 11/13/22 07:57 Dose: 1 mg Gabapentin (Gabapentin 300 Mg Cap) 300 mg PO BID [facility] Last Admin: 11/13/22 21:00 Dose: Not Given Meropenem 1,000 mg/ Sodium (Chloride) 100 mls @ 200 mls/hr IV Q8HR [facility] Last Admin: 11/14/22 01:01 Dose: 100 mls Metronidazole/Sodium Chloride (Flagyl 500mg/100 Ml Iv Premix) 500 mg in 100 mls @ 200 mls/hr IV BID [facility]; Protocol Stop: 11/17/22 09:29 Last Admin: 11/13/22 22:04 Dose: 100 mls Insulin Human Regular (Insulin -Regular Human 50 Unit/0.5 Ml Ml) 0 unit SQ ACHS [facility]; Protocol Last Admin: 11/13/22 21:00 Dose: Not Given Lactobacillus Acidoph/Bulgaricus (Lactobacillus/Acidophilus Tab) 1 tab PO BID [facility] Last Admin: 11/13/22 22:06 Dose: 1 tab Loperamide HCl (Loperamide Hcl 2 Mg Capsule) 2 mg PO Q4H PRN PRN Reason: DIARRHEA Last Admin: 11/10/22 05:39 Dose: 2 mg Magnesium Oxide (Magnesium Oxide 400 Mg Tab) 400 mg PO BID [facility] Last Admin: 11/13/22 22:06 Dose: 400 mg Nutritional Formula (Ensure Enlive 237 Ml Can) 237 ml PO TID [facility] Last Admin: 11/13/22 21:00 Dose: 237 ml Ondansetron HCl (Ondansetron 4 Mg/2 Ml Vial) 4 mg IV Q6HP PRN PRN Reason: NAUSEA / VOMITING Prednisone (Prednisone 20 Mg Tab) 20 mg PO DAILY [facility] Stop: 11/18/22 09:01 Sodium Chloride (Flush Normal Saline 10 Ml) 10 ml IV BID [facility] Last Admin: 11/13/22 22:06 Dose: 10 ml Assessment And Plan - Current Problems (Diagnosis) (1) Pneumonia Current Visit: Yes Status: Acute Plan: Cultures: 11/12 Sputum: Pending 11/10 BC: Negative 11/10 UC: E. Coli 11/08 Stool: Negative for C. Diff Antibiotics: Current: IV Meropenem (11/10-11/19) Recommendation: - Continue current IV Meropenem for total of 10 days - 11/11: Added probiotics BID for diarrhea (3-5 times daily, per patient) (2) Trichomoniasis Current Visit: Yes Status: Acute Plan: Culture: 11/10 UA: Positive with Trichomoniasis Recommendation: - PO Metronidazole 500 mg, twice daily for total of 7 days duration (3) Urinary tract infection Current Visit: Yes Status: Acute Plan: Culture: - 11/10 UC: E. Coli positive Antibiotics: - Current on IV Meropenem, Recommendations: - Continue Meropenem for total of 10 Days - Plan - Diarrhea: Stool ordered to r/o C. Diff - Pneumonia - UTI - Trichomoniasis - Acute CVA with LLE weakness - History of prior CVA - Breast cancer on chemotherapy - Bilateral mastectomy - HTN - Morbid obesity - Tobacco abuse - Appendectomy - Splenectomy ID will monitor the patient closely for signs of infection with fever and WBC trends Case has been discussed with Dr. Dean N Physician Review: Patient Assessed, Agree with Above Assessment and Plan
[2022-11-14] MEDS: GABAPENTIN 300 MG CAP PO SCH ×2 (09:00→21:00)
[2022-11-14] MEDS: ENSURE ENLIVE 237 ML CAN PO SCH ×3 (09:00→21:00)
[2022-11-14] MEDS: Banana Flakes/T-Galactooligos 1 Dose Packet PO SCH ×2 (09:00→21:00)
[2022-11-14] MEDS: MAGNESIUM OXIDE 400 MG TAB PO SCH ×2 (09:00→21:54)
[2022-11-14] MEDS: DULERA 200/5 (MOMETASONE/FORMOTEROL) INHALER IH SCH ×2 (09:00→21:00)
[2022-11-14] MEDS: CLOPIDOGREL 75 MG TABLET PO SCH (09:08)
[2022-11-14] MEDS: LACTOBACILLUS/ACIDOPHILUS TAB PO SCH ×2 (09:08→21:54)
[2022-11-14] MEDS: FOLIC ACID 1 MG TABLET PO SCH (09:08)
[2022-11-14] MEDS: METRONIDAZOLE 500mg IVPB 500 MG/100 ML BAG IV SCH ×2 (09:08→21:55)
[2022-11-14] MEDS: BENZONATATE 100 MG CAP PO PRN (09:09)
[2022-11-14] MEDS: predniSONE 20 MG TAB PO SCH (09:09)
[2022-11-14] MEDS: ENOXAPARIN 40 MG/0.4 ML SQ SCH (09:09)
[2022-11-14] MEDS: LOPERAMIDE HCL 2 MG CAPSULE PO PRN (09:14)
[2022-11-14 09:57] LABS: Platelet Estimate ADEQ
[2022-11-14 09:58] LABS: Anisocytosis 1+; Blood Morphology Comment NOTED (NOT SEEN); Poikilocytosis 2+; Polychromasia SLIGHT
[2022-11-14 09:59] LABS: ACANTHOCYTE FEW; Burr Cells FEW
[2022-11-14] MEDS: ATORVASTATIN 20 MG TAB PO SCH (21:54)
[2022-11-15] MEDS: Meropenem 1,000 MG in NA CHLORIDE 0.9% 100 ML IV SCH ×3 (01:00→17:24)
[2022-11-15] MEDS ORDERED: Meropenem 1000 MG/VIAL IV ONE (01:26)
[2022-11-15 05:49] LABS: Albumin 2.2 g/dL (3.4-5.0); Bilirubin Total 0.5 mg/dL (0.2-1.0); Magnesium 2.4 mg/dL (1.6-2.4); Potassium 3.8 mmol/L (3.5-5.1); Protein, Total 5.1 g/dL (6.4-8.2)
[2022-11-15] MEDS: INSULIN -REGULAR HUMAN 50 UNIT/0.5 ML ML SQ SCH ×4 (07:30→19:52)
[2022-11-15 07:40] LABS: Absolute Lymphocytes (CBC) 11.8 K/uL (0.7-4.9); Hematocrit 29.6 % (36.0-45.0); Lymphocytes % 45.1 % (15.3-44.8); MCV 91.7 fL (80-100); MPV 10.7 fL (7.6-11.3); RBC Red Blood Cell Count 3.23 M/uL (3.86-4.86)
[2022-11-15] MEDS: DULERA 200/5 (MOMETASONE/FORMOTEROL) INHALER IH SCH ×2 (09:00→19:51)
[2022-11-15] MEDS: ENSURE ENLIVE 237 ML CAN PO SCH ×3 (09:00→19:51)
[2022-11-15] MEDS: Banana Flakes/T-Galactooligos 1 Dose Packet PO SCH ×2 (09:00→19:51)
[2022-11-15] MEDS: GABAPENTIN 300 MG CAP PO SCH ×2 (09:00→19:51)
[2022-11-15] MEDS: FOLIC ACID 1 MG TABLET PO SCH (09:06)
[2022-11-15] MEDS: LACTOBACILLUS/ACIDOPHILUS TAB PO SCH ×2 (09:06→19:50)
[2022-11-15] MEDS: MAGNESIUM OXIDE 400 MG TAB PO SCH ×2 (09:07→19:51)
[2022-11-15] MEDS: ENOXAPARIN 40 MG/0.4 ML SQ SCH (09:07)
[2022-11-15] MEDS: predniSONE 20 MG TAB PO SCH (09:07)
[2022-11-15] MEDS: METRONIDAZOLE 500mg IVPB 500 MG/100 ML BAG IV SCH ×2 (09:07→19:50)
[2022-11-15] MEDS: CLOPIDOGREL 75 MG TABLET PO SCH (09:07)
[2022-11-15 09:28] LABS: C.diff Antigen/Toxin Ag neg : Tox neg (NEG : NEG)
--- NOTE | 2022-11-15 10:10 | P.PN ---
Subjective Date of Service: 11/15/22 Chief Complaint: Acute CVA/TIA Patient lying in bed resting. No major event upon examination. Stool negative for C. Diff Physical Examination - Vital Signs Temperature: 97.1 F Blood Pressure: 145/68 Pulse: 77 Respirations: 16 Pulse Ox (%): 97 - Physical Exam General: Alert, In no apparent distress, Oriented x3 Respiratory: Clear to auscultation bilaterally (4 L NC) Cardiovascular: No edema, Normal S1 S2 Gastrointestinal: Normal bowel sounds Musculoskeletal: No swelling, No tenderness Integumentary: Other (b/l mastectomy) Neurological: Normal speech, Normal tone, Normal affect Urinary: Other (purewick in place, sam and clear) - Studies Acetaminophen (Acetaminophen 500 Mg Tab) 500 mg PO Q4HP PRN PRN Reason: Pain scale 2-4 (Mild) Albuterol Sulfate (Albuterol 2.5 Mg/3 Ml Neb Paz) 2.5 mg NEB [id number] PRN PRN Reason: SHORTNESS OF BREATH Last Admin: 11/09/22 15:05 Dose: 2.5 mg Atorvastatin Calcium (Atorvastatin 20 Mg Tab) 40 mg PO BEDTIME [facility] Last Admin: 11/14/22 21:54 Dose: 40 mg Benzonatate (Benzonatate 100 Mg Cap) 200 mg PO TID PRN PRN Reason: COUGH Last Admin: 11/14/22 09:09 Dose: 200 mg Clopidogrel Bisulfate (Clopidogrel 75 Mg Tablet) 75 mg PO DAILY [facility] Last Admin: 11/15/22 09:07 Dose: 75 mg Enoxaparin Sodium (Enoxaparin 40 Mg/0.4 Ml) 40 mg SQ DAILY [facility] Last Admin: 11/15/22 09:07 Dose: 40 mg Folic Acid (Folic Acid 1 Mg Tablet) 1 mg PO DAILY [facility] Last Admin: 11/15/22 09:06 Dose: 1 mg Gabapentin (Gabapentin 300 Mg Cap) 300 mg PO BID [facility] Last Admin: 11/14/22 21:00 Dose: Not Given Meropenem 1,000 mg/ Sodium (Chloride) 100 mls @ 200 mls/hr IV Q8HR [facility] Last Admin: 11/15/22 10:09 Dose: 100 mls Metronidazole/Sodium Chloride (Flagyl 500mg/100 Ml Iv Premix) 500 mg in 100 mls @ 200 mls/hr IV BID [facility]; Protocol Stop: 11/17/22 09:29 Last Admin: 11/15/22 09:07 Dose: 100 mls Insulin Human Regular (Insulin -Regular Human 50 Unit/0.5 Ml Ml) 0 unit SQ ACHS [facility]; Protocol Last Admin: 11/14/22 21:00 Dose: Not Given Lactobacillus Acidoph/Bulgaricus (Lactobacillus/Acidophilus Tab) 1 tab PO BID [facility] Last Admin: 11/15/22 09:06 Dose: 1 tab Loperamide HCl (Loperamide Hcl 2 Mg Capsule) 2 mg PO Q4H PRN PRN Reason: DIARRHEA Last Admin: 11/14/22 09:14 Dose: 2 mg Magnesium Oxide (Magnesium Oxide 400 Mg Tab) 400 mg PO BID [facility] Last Admin: 11/15/22 09:07 Dose: 400 mg Nutritional Formula (Ensure Enlive 237 Ml Can) 237 ml PO TID [facility] Last Admin: 11/14/22 21:00 Dose: Not Given Ondansetron HCl (Ondansetron 4 Mg/2 Ml Vial) 4 mg IV Q6HP PRN PRN Reason: NAUSEA / VOMITING Prednisone (Prednisone 20 Mg Tab) 20 mg PO DAILY [facility] Stop: 11/18/22 09:01 Last Admin: 11/15/22 09:07 Dose: 20 mg Sodium Chloride (Flush Normal Saline 10 Ml) 10 ml IV BID [facility] Last Admin: 11/14/22 21:58 Dose: 10 ml Assessment And Plan - Current Problems (Diagnosis) (1) Pneumonia Current Visit: Yes Status: Acute Plan: Cultures: 11/12 Sputum: Normal 11/10 BC: Negative 11/10 UC: E. Coli 11/08 and Stool: Negative for C. Diff Antibiotics: Current: IV Meropenem (11/10-11/19) Recommendation: - Continue current IV Meropenem for total of 10 days - 11/11: Added probiotics BID for diarrhea (3-5 times daily, per patient) (2) Trichomoniasis Current Visit: Yes Status: Acute Plan: Culture: 11/10 UA: Positive with Trichomoniasis Recommendation: - PO Metronidazole 500 mg, twice daily for total of 7 days duration (3) Urinary tract infection Current Visit: Yes Status: Acute Plan: Culture: - 11/10 UC: E. Coli positive Antibiotics: - Current on IV Meropenem, Recommendations: - Continue Meropenem for total of 10 Days - Plan - Diarrhea: Negative 11/14 C. Diff - Pneumonia - UTI - Trichomoniasis - Acute CVA with LLE weakness - History of prior CVA - Breast cancer on chemotherapy - Bilateral mastectomy - HTN - Morbid obesity - Tobacco abuse - Appendectomy - Splenectomy ID will monitor the patient closely for signs of infection with fever and WBC trends Case has been discussed with Dr. Dean N Physician Review: Patient Assessed, Agree with Above Assessment and Plan
--- NOTE | 2022-11-15 15:26 | P.PN ---
Subjective Date of Service: 11/15/22 Chief Complaint: Acute CVA/TIA Patient has no new complain. She is currently tolerating 3 L of oxygen by nasal cannula. No issues overnight. Physical Examination - Vital Signs Temperature: 97.1 F Blood Pressure: 145/68 Pulse: 77 Respirations: 16 Pulse Ox (%): 97 Assessment And Plan - Current Problems (Diagnosis) (1) History of CVA (cerebrovascular accident) Current Visit: Yes Status: Acute (2) Acute CVA (cerebrovascular accident) Current Visit: Yes Status: Acute (3) Breast cancer Current Visit: Yes Status: Chronic Qualifiers: Breast location: unspecified site of breast Estrogen receptor status: unspecified Patient sex: female Laterality: right Qualified Code(s): C50.911 - Malignant neoplasm of unspecified site of right female breast (4) HTN (hypertension) Current Visit: Yes Status: Chronic Qualifiers: Hypertension type: primary hypertension Qualified Code(s): I10 - Essential (primary) hypertension (5) BMI 40.0-44.9, adult Current Visit: No Status: Acute - Plan Physical Exam Gen: Alert, Oriented x3 HEENT: normal conjunctiva, sclera anicteric Respiratory: non labored respirations, +cough; diminished at bases bilaterally Cardiovascular: Regular rate/rhythm, Normal S1 S2 Gastrointestinal: soft, nontender, nondistended Neurological: Normal affect, hoarse voice; moves all extremities, generalized weakness vitals reviewed Problem List: Acute CVA with LLE weakness Sepsis secondary to UTI h/o prior CVA acute on chronic COPD Exacerbation, new/undiagnosed Breast cancer on chemotherapy HTN Morbid obesity Repeat CT head 24hrs s/p TNKase shows no acute disease, no hemorrhage MRI brain: no acute disease. MRA of the brain and neck unremarkable. Neurology consulted - Patient's symptoms could be related to TIA or late effect of stroke. Continue PT and OT. Patient with a history of CVA in the past. 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 [facility]. Insurance approved 11/14; patient with improving hypoxia. Continue aspirin and Plavix and folic acid LDL within target. Continue home dose statin. No problem with swallowing. Diet as tolerated. Sepsis, secondary to UTI initially suspected UTI vs pneumonia UA +bacteruria, +leuk est, +nitrite, +trichimonas merrem/vanc/flagyl empirically started 11/10 Ur culture: Pansensitive E. coli vanc dc'd 11/11 trichimonas - pt states no sexual activity in ~[address] chest +mild opacities, unlikely pneumonia, but possible Pulm and ID are following lactate ok pt hypotensive from dehydration; responded to small IVF bolus; accurate BP readings >90 systolic after initial small bolus 30cc/kg bolus not given, possible pulm edema on CXR, pt without severe sepsis, no septic shock Leukocytosis likely steroid-induced. Monitor acute hypoxic respiratory failure unclear etiology, suspect acute copd exacerbation - no prior diagnosis / testing wean O2 as tolerated possible PE; CTA chest ordered, however patient without large enough IV Access; awaiting VQ scan CT chest: chronic findings, mild RUL opacities 50pk/yr smoking. Continue bronchodilators. Discharge to inpatient rehab once WBC started trending down. Patient is currently tolerating 3 L oxygen by nasal cannula.
[2022-11-15] MEDS: ATORVASTATIN 20 MG TAB PO SCH (19:50)
[2022-11-16] MEDS: Meropenem 1,000 MG in NA CHLORIDE 0.9% 100 ML IV SCH ×3 (00:28→17:07)
[2022-11-16 05:44] LABS: Potassium 3.8 mmol/L (3.5-5.1)
[2022-11-16 05:48] LABS: Absolute Lymphocytes (CBC) 9.8 K/uL (0.7-4.9); Hematocrit 29.7 % (36.0-45.0); Lymphocytes % 47.5 % (15.3-44.8); MCV 92.3 fL (80-100); MPV 10.8 fL (7.6-11.3); RBC Red Blood Cell Count 3.22 M/uL (3.86-4.86)
[2022-11-16] MEDS: INSULIN -REGULAR HUMAN 50 UNIT/0.5 ML ML SQ SCH ×4 (07:30→21:00)
[2022-11-16] MEDS: GABAPENTIN 300 MG CAP PO SCH ×2 (07:52→20:45)
[2022-11-16] MEDS: Banana Flakes/T-Galactooligos 1 Dose Packet PO SCH ×2 (07:53→20:56)
[2022-11-16] MEDS: LACTOBACILLUS/ACIDOPHILUS TAB PO SCH ×2 (07:53→20:45)
[2022-11-16] MEDS: ENSURE ENLIVE 237 ML CAN PO SCH ×3 (07:53→20:56)
[2022-11-16] MEDS: CLOPIDOGREL 75 MG TABLET PO SCH (07:54)
[2022-11-16] MEDS: MAGNESIUM OXIDE 400 MG TAB PO SCH ×2 (07:54→20:45)
[2022-11-16] MEDS: FOLIC ACID 1 MG TABLET PO SCH (07:54)
[2022-11-16] MEDS: METRONIDAZOLE 500mg IVPB 500 MG/100 ML BAG IV SCH ×2 (07:54→20:44)
[2022-11-16] MEDS: predniSONE 20 MG TAB PO SCH (07:54)
[2022-11-16] MEDS: DULERA 200/5 (MOMETASONE/FORMOTEROL) INHALER IH SCH ×2 (07:55→20:45)
[2022-11-16] MEDS: ENOXAPARIN 40 MG/0.4 ML SQ SCH (07:55)
--- NOTE | 2022-11-16 08:14 | P.PN ---
Subjective Date of Service: 11/16/22 Chief Complaint: Acute CVA/TIA Patient lying in bed resting stating feeling better. No major event upon examination. Physical Examination - Vital Signs Temperature: 97.2 F Blood Pressure: 130/72 Pulse: 72 Respirations: 18 Pulse Ox (%): 92 - Physical Exam General: Alert, In no apparent distress, Oriented x3 Respiratory: Clear to auscultation bilaterally, Other (4 LNC) Cardiovascular: No edema, Normal S1 S2 Gastrointestinal: Normal bowel sounds Musculoskeletal: No swelling, No erythema, No tenderness Integumentary: Other (b/l mastectomy) Neurological: Normal speech, Normal tone, Normal affect Urinary: Other (purewick in place, sam and clear) - Studies Acetaminophen (Acetaminophen 500 Mg Tab) 500 mg PO Q4HP PRN PRN Reason: Pain scale 2-4 (Mild) Albuterol Sulfate (Albuterol 2.5 Mg/3 Ml Neb Paz) 2.5 mg NEB [id number] PRN PRN Reason: SHORTNESS OF BREATH Last Admin: 11/09/22 15:05 Dose: 2.5 mg Atorvastatin Calcium (Atorvastatin 20 Mg Tab) 40 mg PO BEDTIME [facility] Last Admin: 11/15/22 19:50 Dose: 40 mg Benzonatate (Benzonatate 100 Mg Cap) 200 mg PO TID PRN PRN Reason: COUGH Last Admin: 11/14/22 09:09 Dose: 200 mg Clopidogrel Bisulfate (Clopidogrel 75 Mg Tablet) 75 mg PO DAILY [facility] Last Admin: 11/16/22 07:54 Dose: 75 mg Enoxaparin Sodium (Enoxaparin 40 Mg/0.4 Ml) 40 mg SQ DAILY [facility] Last Admin: 11/16/22 07:55 Dose: 40 mg Folic Acid (Folic Acid 1 Mg Tablet) 1 mg PO DAILY [facility] Last Admin: 11/16/22 07:54 Dose: 1 mg Gabapentin (Gabapentin 300 Mg Cap) 300 mg PO BID [facility] Last Admin: 11/16/22 07:52 Dose: Not Given Meropenem 1,000 mg/ Sodium (Chloride) 100 mls @ 200 mls/hr IV Q8HR [facility] Last Admin: 11/16/22 00:28 Dose: 100 mls Metronidazole/Sodium Chloride (Flagyl 500mg/100 Ml Iv Premix) 500 mg in 100 mls @ 200 mls/hr IV BID [facility]; Protocol Stop: 11/17/22 09:29 Last Admin: 11/16/22 07:54 Dose: 100 mls Insulin Human Regular (Insulin -Regular Human 50 Unit/0.5 Ml Ml) 0 unit SQ ACHS [facility]; Protocol Last Admin: 11/15/22 19:52 Dose: 2 unit Lactobacillus Acidoph/Bulgaricus (Lactobacillus/Acidophilus Tab) 1 tab PO BID [facility] Last Admin: 11/16/22 07:53 Dose: 1 tab Loperamide HCl (Loperamide Hcl 2 Mg Capsule) 2 mg PO Q4H PRN PRN Reason: DIARRHEA Last Admin: 11/14/22 09:14 Dose: 2 mg Magnesium Oxide (Magnesium Oxide 400 Mg Tab) 400 mg PO BID [facility] Last Admin: 11/16/22 07:54 Dose: 400 mg Nutritional Formula (Ensure Enlive 237 Ml Can) 237 ml PO TID [facility] Last Admin: 11/16/22 07:53 Dose: Not Given Ondansetron HCl (Ondansetron 4 Mg/2 Ml Vial) 4 mg IV Q6HP PRN PRN Reason: NAUSEA / VOMITING Prednisone (Prednisone 20 Mg Tab) 20 mg PO DAILY [facility] Stop: 11/18/22 09:01 Last Admin: 11/16/22 07:54 Dose: 20 mg Sodium Chloride (Flush Normal Saline 10 Ml) 10 ml IV BID [facility] Last Admin: 11/16/22 07:55 Dose: 10 ml Assessment And Plan - Current Problems (Diagnosis) (1) Pneumonia Current Visit: Yes Status: Acute Plan: Cultures: 11/12 Sputum: Normal 11/10 BC: Negative 11/10 UC: E. Coli 11/08 and Stool: Negative for C. Diff Antibiotics: Current: IV Meropenem (11/10-11/19) Recommendation: - Continue current IV Meropenem for total of 10 days - 11/11: Added probiotics BID for diarrhea (3-5 times daily, per patient) (2) Trichomoniasis Current Visit: Yes Status: Acute Plan: Culture: 11/10 UA: Positive with Trichomoniasis Recommendation: - PO Metronidazole 500 mg, twice daily for total of 7 days duration (3) Urinary tract infection Current Visit: Yes Status: Acute Plan: Culture: - 11/10 UC: E. Coli positive Antibiotics: - Current on IV Meropenem, Recommendations: - Continue Meropenem for total of 10 Days - Plan - Diarrhea: Negative 11/14 C. Diff - Pneumonia - UTI - Trichomoniasis - Acute CVA with LLE weakness - History of prior CVA - Breast cancer on chemotherapy - Bilateral mastectomy - HTN - Morbid obesity - Tobacco abuse - Appendectomy - Splenectomy ID will monitor the patient closely for signs of infection with fever and WBC trends Case has been discussed with Dr. Dean N Physician Review: Patient Assessed, Agree with Above Assessment and Plan
[2022-11-16] MEDS ORDERED: Meropenem 1000 MG/VIAL IV ONE (09:15)
[2022-11-16] MEDS ORDERED: NA CHLORIDE 0.9% 100 ML ONE (09:17)
--- NOTE | 2022-11-16 15:57 | P.PN ---
Subjective Date of Service: 11/16/22 Chief Complaint: Acute CVA/TIA Patient has no new complain. She is currently requiring 4.5 L of oxygen by nasal cannula. She stated she slept well last night. Physical Examination - Vital Signs Temperature: 97.0 F Blood Pressure: 138/59 Pulse: 80 Respirations: 16 Pulse Ox (%): 96 Assessment And Plan - Current Problems (Diagnosis) (1) History of CVA (cerebrovascular accident) Current Visit: Yes Status: Acute (2) Acute CVA (cerebrovascular accident) Current Visit: Yes Status: Acute (3) Breast cancer Current Visit: Yes Status: Chronic Qualifiers: Breast location: unspecified site of breast Estrogen receptor status: unspecified Patient sex: female Laterality: right Qualified Code(s): C50.911 - Malignant neoplasm of unspecified site of right female breast (4) HTN (hypertension) Current Visit: Yes Status: Chronic Qualifiers: Hypertension type: primary hypertension Qualified Code(s): I10 - Essential (primary) hypertension (5) BMI 40.0-44.9, adult Current Visit: No Status: Acute - Plan Physical Exam Gen: Alert, Oriented x3 HEENT: normal conjunctiva, sclera anicteric Respiratory: non labored respirations, diminished at bases bilaterally Cardiovascular: Regular rate/rhythm, Normal S1 S2 Gastrointestinal: soft, nontender, nondistended Neurological: generally weak, no focal motor deficit. vitals reviewed Problem List: Acute CVA with LLE weakness Sepsis secondary to UTI h/o prior CVA acute on chronic COPD Exacerbation, new/undiagnosed Breast cancer on chemotherapy HTN Morbid obesity Repeat CT head 24hrs s/p TNKase shows no acute disease, no hemorrhage MRI brain: no acute disease. MRA of the brain and neck unremarkable. Neurology consulted - Patient's symptoms could be related to TIA or late effect of stroke. Continue PT and OT. Patient with a history of CVA in the past. 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 [facility]. Insurance approved 11/14; She has hypoxia and currently requiring 4.5 L of oxygen. Continue aspirin and Plavix and folic acid LDL within target. Continue home dose statin. No problem with swallowing. Diet as tolerated. Sepsis, secondary to UTI initially suspected UTI vs pneumonia UA +bacteruria, +leuk est, +nitrite, +trichimonas merrem/vanc/flagyl empirically started 11/10 Ur culture: Pansensitive E. coli vanc dc'd 11/11 trichimonas - pt states no sexual activity in ~5 [address] chest +mild opacities, unlikely pneumonia. Pulm and ID are following lactate ok pt hypotensive from dehydration; responded to small IVF bolus; accurate BP readings >90 systolic after initial small bolus 30cc/kg bolus not given, possible pulm edema on CXR, pt without severe sepsis, no septic shock Leukocytosis likely steroid-induced. Monitor acute hypoxic respiratory failure unclear etiology, suspect acute copd exacerbation - no prior diagnosis / testing wean O2 as tolerated possible PE; VQ scan to rule out PE. CT chest: chronic findings, mild RUL opacities 50pk/yr smoking. Continue bronchodilators. Patient is currently requiring 4.5 L oxygen by nasal cannula. Anticipating discharge to acute rehab tomorrow if WBC continues to trend down and her oxygen requirement is stable.
[2022-11-16] MEDS: ATORVASTATIN 20 MG TAB PO SCH (20:45)
[2022-11-17] MEDS: Meropenem 1,000 MG in NA CHLORIDE 0.9% 100 ML IV SCH ×2 (01:04→09:54)
[2022-11-17 05:49] LABS: Absolute Lymphocytes (CBC) 9.4 K/uL (0.7-4.9); Hematocrit 29.4 % (36.0-45.0); Lymphocytes % 47.6 % (15.3-44.8); MCV 93.2 fL (80-100); RBC Red Blood Cell Count 3.16 M/uL (3.86-4.86)
[2022-11-17 06:01] LABS: Potassium 3.9 mmol/L (3.5-5.1)
[2022-11-17 07:15] LABS: Anisocytosis 1+; Blood Morphology Comment NOTED (NOT SEEN); Platelet Estimate ADEQ; Platelets, Giant FEW PRESENT; Polychromasia SLIGHT
[2022-11-17 07:16] LABS: ACANTHOCYTE 1+; Burr Cells 2+
[2022-11-17 07:17] LABS: Basophilic Stippling 1+
[2022-11-17] MEDS: INSULIN -REGULAR HUMAN 50 UNIT/0.5 ML ML SQ SCH ×2 (07:30→11:30)
--- NOTE | 2022-11-17 08:03 | P.PN ---
Subjective Date of Service: 11/17/22 Chief Complaint: Acute CVA/TIA Patient lying in bed resting in good spirit. No major event upon examination. Physical Examination - Vital Signs Temperature: 97.6 F Blood Pressure: 135/71 Pulse: 67 Respirations: 18 Pulse Ox (%): 94 - Physical Exam General: Alert, In no apparent distress, Oriented x3 Respiratory: Clear to auscultation bilaterally (4 L NC) Cardiovascular: No edema, Normal S1 S2 Gastrointestinal: Normal bowel sounds Musculoskeletal: No swelling, No tenderness Integumentary: Other (b/l mastectomy) Neurological: Normal speech, Normal tone, Normal affect Urinary: Other (Purewick in place, sam and clear) - Studies Acetaminophen (Acetaminophen 500 Mg Tab) 500 mg PO Q4HP PRN PRN Reason: Pain scale 2-4 (Mild) Albuterol Sulfate (Albuterol 2.5 Mg/3 Ml Neb Paz) 2.5 mg NEB [id number] PRN PRN Reason: SHORTNESS OF BREATH Last Admin: 11/09/22 15:05 Dose: 2.5 mg Atorvastatin Calcium (Atorvastatin 20 Mg Tab) 40 mg PO BEDTIME [facility] Last Admin: 11/16/22 20:45 Dose: 40 mg Benzonatate (Benzonatate 100 Mg Cap) 200 mg PO TID PRN PRN Reason: COUGH Last Admin: 11/14/22 09:09 Dose: 200 mg Clopidogrel Bisulfate (Clopidogrel 75 Mg Tablet) 75 mg PO DAILY [facility] Last Admin: 11/16/22 07:54 Dose: 75 mg Enoxaparin Sodium (Enoxaparin 40 Mg/0.4 Ml) 40 mg SQ DAILY [facility] Last Admin: 11/16/22 07:55 Dose: 40 mg Folic Acid (Folic Acid 1 Mg Tablet) 1 mg PO DAILY [facility] Last Admin: 11/16/22 07:54 Dose: 1 mg Gabapentin (Gabapentin 300 Mg Cap) 300 mg PO BID [facility] Last Admin: 11/16/22 20:45 Dose: 300 mg Meropenem 1,000 mg/ Sodium (Chloride) 100 mls @ 200 mls/hr IV Q8HR [facility] Last Admin: 11/17/22 01:04 Dose: 100 mls Metronidazole/Sodium Chloride (Flagyl 500mg/100 Ml Iv Premix) 500 mg in 100 mls @ 200 mls/hr IV BID [facility]; Protocol Stop: 11/17/22 09:29 Last Admin: 11/16/22 20:44 Dose: 100 mls Insulin Human Regular (Insulin -Regular Human 50 Unit/0.5 Ml Ml) 0 unit SQ ACHS [facility]; Protocol Last Admin: 11/16/22 21:00 Dose: Not Given Lactobacillus Acidoph/Bulgaricus (Lactobacillus/Acidophilus Tab) 1 tab PO BID [facility] Last Admin: 11/16/22 20:45 Dose: 1 tab Loperamide HCl (Loperamide Hcl 2 Mg Capsule) 2 mg PO Q4H PRN PRN Reason: DIARRHEA Last Admin: 11/14/22 09:14 Dose: 2 mg Magnesium Oxide (Magnesium Oxide 400 Mg Tab) 400 mg PO BID [facility] Last Admin: 11/16/22 20:45 Dose: 400 mg Nutritional Formula (Ensure Enlive 237 Ml Can) 237 ml PO TID [facility] Last Admin: 11/16/22 20:56 Dose: Not Given Ondansetron HCl (Ondansetron 4 Mg/2 Ml Vial) 4 mg IV Q6HP PRN PRN Reason: NAUSEA / VOMITING Potassium Chloride (Potassium Cl Sa 10 Meq Tab) 20 meq PO 1X ONE Stop: 11/17/22 09:01 Prednisone (Prednisone 20 Mg Tab) 20 mg PO DAILY [facility] Stop: 11/18/22 09:01 Last Admin: 11/16/22 07:54 Dose: 20 mg Sodium Chloride (Flush Normal Saline 10 Ml) 10 ml IV BID [facility] Last Admin: 11/16/22 20:46 Dose: 10 ml Assessment And Plan - Current Problems (Diagnosis) (1) Pneumonia Current Visit: Yes Status: Acute Plan: Cultures: 11/12 Sputum: Normal 11/10 BC: Negative 11/10 UC: E. Coli 11/08 Stool: Negative for C. Diff Antibiotics: Current: IV Meropenem (11/10-11/19) Recommendation: - Continue current IV Meropenem for total of 10 days - 11/11: Added probiotics BID for diarrhea (3-5 times daily, per patient) (2) Trichomoniasis Current Visit: Yes Status: Acute Plan: Culture: 11/10 UA: Positive with Trichomoniasis Recommendation: - PO Metronidazole 500 mg, twice daily for total of 7 days duration (3) Urinary tract infection Current Visit: Yes Status: Acute Plan: Culture: - 11/10 UC: E. Coli positive Antibiotics: - Current on IV Meropenem, Recommendations: - Continue Meropenem for total of 10 Days - Plan - Diarrhea: Negative 11/14 C. Diff - Pneumonia - UTI - Trichomoniasis - Acute CVA with LLE weakness - History of prior CVA - Breast cancer on chemotherapy - Bilateral mastectomy - HTN - Morbid obesity - Tobacco abuse - Appendectomy - Splenectomy ID will monitor the patient closely for signs of infection with fever and WBC trends Case has been discussed with Dr. Dean N Physician Review: Patient Assessed, Agree with Above Assessment and Plan
[2022-11-17] MEDS ORDERED: NA CHLORIDE 0.9% 100 ML ONE (08:09)
[2022-11-17] MEDS: MAGNESIUM OXIDE 400 MG TAB PO SCH (09:00)
[2022-11-17] MEDS ORDERED: POTASSIUM CL SA 10 MEQ TAB PO ONE (09:00)
[2022-11-17] MEDS: DULERA 200/5 (MOMETASONE/FORMOTEROL) INHALER IH SCH (09:00)
--- NOTE | 2022-11-17 09:22 | RAD REPORT ---
EXAM DESCRIPTION: CT - Chest For Pe Angio - 11/17/2022 9:15 am CLINICAL HISTORY: Chest pain. Hypoxia COMPARISON: Thorax Wo Con dated 11/10/2022 TECHNIQUE: CT angiogram of the pulmonary arteries was performed with MIP. All CT scans are performed using dose optimization technique as appropriate and may include automated exposure control or mA/KV adjustment according to patient size. FINDINGS: No evidence of pulmonary thromboembolism. No acute aortic finding demonstrated. The lungs are mildly emphysematous but clear. Trace pleural fluid bilaterally. No concerning bony finding. IMPRESSION: No evidence of pulmonary thromboembolism. COPD with trace pleural fluid bilaterally.
[2022-11-17] MEDS: METRONIDAZOLE 500mg IVPB 500 MG/100 ML BAG IV SCH (09:54)
[2022-11-17] MEDS: FOLIC ACID 1 MG TABLET PO SCH (09:55)
[2022-11-17] MEDS: predniSONE 20 MG TAB PO SCH (09:55)
[2022-11-17] MEDS: LACTOBACILLUS/ACIDOPHILUS TAB PO SCH (09:55)
[2022-11-17] MEDS: CLOPIDOGREL 75 MG TABLET PO SCH (09:55)
[2022-11-17] MEDS: ENSURE ENLIVE 237 ML CAN PO SCH (09:56)
[2022-11-17] MEDS: ENOXAPARIN 40 MG/0.4 ML SQ SCH (09:56)
[2022-11-17] MEDS: GABAPENTIN 300 MG CAP PO SCH (10:03)
[2022-11-17] MEDS: Banana Flakes/T-Galactooligos 1 Dose Packet PO SCH (10:04)
--- NOTE | 2022-11-17 10:36 | P.DS ---
Admission Date: 11/03/22 Discharge Date: 11/17/22 Disposition: TRANSFER TO INPATIENT REHAB Discharge Condition: FAIR Reason for Admission: Acute CVA/TIA - Problems (1) History of CVA (cerebrovascular accident) Current Visit: Yes Status: Acute (2) Acute CVA (cerebrovascular accident) Current Visit: Yes Status: Acute (3) Breast cancer Current Visit: Yes Status: Chronic Qualifiers: Breast location: unspecified site of breast Estrogen receptor status: unspecified Patient sex: female Laterality: right Qualified Code(s): C50.911 - Malignant neoplasm of unspecified site of right female breast (4) HTN (hypertension) Current Visit: Yes Status: Chronic Qualifiers: Hypertension type: primary hypertension Qualified Code(s): I10 - Essential (primary) hypertension (5) BMI 40.0-44.9, adult Current Visit: No Status: Acute Brief History of Present Illness: Patient is a 67-year-old female with history of previous CVAs, hypertension, diabetes mellitus type [id number], hyperlipidemia, tobacco abuse, and breast cancer currently undergoing chemotherapy who presented to the emergency department via EMS with complaints of sudden onset left leg weakness. She reported that she could not feel her left leg or walk. NIHSS 3. Head CT negative. She was in the window for TNK, so it was administered in the emergency department. She is on daily plavix. Head/neck CTA also negative. Per chart review, she has had previous CVAs/TIAs that have caused left sided deficits and resolved. Her labs were significant for hgb 10.7, hct 31.6, BUN 27, Cr 1.48, glucose 266. Her left leg weakness improved while in the ED. Patient was admitted for further evaluation and management of acute CVA. Hospital Course: Diagnosis Acute CVA with LLE weakness Sepsis secondary to UTI h/o prior CVA acute on chronic COPD Exacerbation, new/undiagnosed Breast cancer on chemotherapy HTN Morbid obesity Patient admitted to the medical floor for stroke work-up. Repeat CT head 24 hours post TNKase showed no acute disease, no hemorrhage MRI of the brain showed no acute disease. MRA of the brain and neck unremarkable. Seen by neurology, patient's symptoms could be related to TIA or late effect of stroke. Patient evaluated by PT and OT. Her functional status improved from not being able to take a step to ambulating about 20 feet with a walker. Patient with a history of CVA in the past. 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 Continued aspirin and Plavix and folic acid LDL within target. Continued home dose statin. She had no problem with swallowing. She tolerated her diet. She was complaining of secretions stuck in her throat which was managed with Mucomyst inhaler. She had sepsis secondary to UTI initially suspected UTI vs pneumonia UA +bacteruria, +leuk est, +nitrite, +trichimonas Initially treated withmerrem/vanc/flagyl empirically which was started 11/10. Seen by infectious disease and antibiotics scaled down to IV meropenem. Patient slated to complete meropenem on 11/19. Ur culture: Pansensitive E. coli Severe leukocytosis likely steroid-induced. CT chest: Emphysema unlikely pneumonia. Pulm assisted with management lactate ok Acute hypoxic respiratory failure Likely secondary to acute copd exacerbation - no prior diagnosis / testing CTA thorax negative for pulmonary embolism. It demonstrated emphysema and other chronic findings. possible PE; VQ scan to rule out PE. 50pk/yr smoking. Patient treated with bronchodilators. Patient is currently requiring 4.5 L oxygen by nasal cannula. Patient patient has clinically improved. She has been accepted to inpatient rehab. She is clinically stable for discharge. Vital Signs/Physical Exam: Temp Pulse Resp BP Pulse Ox 97.6 F 67 18 135/71 94 11/17/22 08:02 11/17/22 08:02 11/17/22 08:02 11/17/22 08:02 11/17/22 08:02 General: Alert, In no apparent distress, Oriented x3 HEENT: Mucous membr. moist/pink Neck: JVD not distended Respiratory: Clear to auscultation bilaterally, Diminished Cardiovascular: No edema, Regular rate/rhythm, Normal S1 S2 Gastrointestinal: Normal bowel sounds, Soft and benign, Non-distended Musculoskeletal: No swelling Integumentary: No rashes Neurological: Normal strength at 5/5 x4 extr Laboratory Data at Discharge: WBC 19.70 K/uL (4.3-10.9) H 11/17/22 05:30 Hgb 9.6 g/dL (12.0-15.0) L 11/17/22 05:30 Hct 29.4 % (36.0-45.0) L 11/17/22 05:30 Plt Count 304 K/uL (152-406) 11/17/22 05:30 PT 14.8 SECONDS (9.5-12.5) H 11/02/22 19:55 INR 1.35 11/02/22 19:55 APTT 28.1 SECONDS (24.3-36.9) 11/02/22 19:55 Sodium 146 mmol/L (136-145) H 11/17/22 05:30 Potassium 3.9 mmol/L (3.5-5.1) 11/17/22 05:30 BUN 7 mg/dL (7-18) 11/17/22 05:30 Creatinine 0.41 mg/dL (0.55-1.02) L 11/17/22 05:30 Glucose 104 mg/dL (74-106) 11/17/22 05:30 Phosphorus 2.1 mg/dL (2.5-4.9) L 11/12/22 15:19 Magnesium 2.4 mg/dL (1.6-2.4) 11/15/22 05:17 Total Bilirubin 0.5 mg/dL (0.2-1.0) 11/15/22 05:17 AST 37 U/L (15-37) 11/15/22 05:17 ALT 31 U/L (13-56) 11/15/22 05:17 Alkaline Phosphatase 84 U/L (45-117) 11/15/22 05:17 Triglycerides 152 mg/dL (<150) H 11/03/22 04:44 Cholesterol 104 mg/dL (<200) 11/03/22 04:44 HDL Cholesterol 33 mg/dL (40-60) L 11/03/22 04:44 Cholesterol/HDL Ratio 3.15 11/03/22 04:44 Home Medications: Atorvastatin Calcium [Lipitor] 40 mg PO BEDTIME #30 tab 07/21/21 Clopidogrel Bisulfate [Plavix*] 75 mg PO DAILY #30 tablet 07/21/21 Metformin ER [Glucophage ER*] 500 mg PO BIDWM #60 tab.sa 07/21/21 LORazepam [Ativan*] 0.5 mg PO BID PRN 05/03/22 Aspirin 81 mg PO DAILY #30 tab.chew 05/13/22 Losartan Potassium [Cozaar*] 100 mg PO DAILY 06/14/22 Magnesium Oxide 400 mg PO BID 06/14/22 Gabapentin 300 mg PO BID 11/03/22 Glimepiride 2 mg PO DAILY 11/03/22 Pantoprazole Sodium 40 mg PO 1X 11/03/22 Acetylcyst 20% Resp [Mucomyst 20% (FOR RESPIRATORY)*] 4 ml IH [id number] #30 vial 11/07/22 Ensure Enlive 237 ml PO TID #30 can 11/07/22 Folic Acid 1 mg PO DAILY #30 tab 11/07/22 Benzonatate [Tessalon Perle*] 200 mg PO TID PRN cap 11/17/22 Loperamide [Imodium*] 2 mg PO Q4H PRN #0 cap 11/17/22 Meropenem [Merrem*] 1,000 mg IV Q8H 2 Days #6 ml 11/17/22 Mometasone/Formoterol [Dulera 200 Mcg-5 Mcg Inhaler] 13 gm IH BID #1 inhaler 11/17/22 predniSONE [Prednisone*] 20 mg PO DAILY #5 tab 11/17/22 New Medications: Acetylcyst 20% Resp [Mucomyst 20% (FOR RESPIRATORY)*] 4 ml IH [id number] #30 vial Mometasone/Formoterol [Dulera 200 Mcg-5 Mcg Inhaler] 13 gm IH BID #1 inhaler Ensure Enlive 237 ml PO TID #30 can Folic Acid 1 mg PO DAILY #30 tab Meropenem [Merrem*] 1,000 mg IV Q8H 2 Days #6 ml Diet: AHA Activity: Fall precautions Followup: Unknown,U [Primary Care Provider] - 1-2 Weeks Time spent managing pt's care (in minutes): 38
[2022-11-17 11:20] VITALS: O2SAT 96
[2022-11-17 11:46] VITALS: BP 121/54; TEMP 96.5
== END 2022-11-17 15:02 | DRG 61 ==
LOC: ER 21:32 → ERHOLD 11-03 → 3RD-ICU 11-03 17:10 → 2ND 11-04 04:06
PROVIDERS: ADMIT Internal Medicine; ATTEND Internal Medicine
DX: G45.9 Transient cerebral ischemic attack, unspecified (principal); A41.51 Sepsis due to Escherichia coli [E. coli]; J18.9 Pneumonia, unspecified organism; J96.01 Acute respiratory failure with hypoxia; I69.354 Hemiplegia and hemiparesis following cerebral infarction affecting left non-dominant side; Z68.41 Body mass index [BMI] 40.0-44.9, adult; N39.0 Urinary tract infection, site not specified; E78.5 Hyperlipidemia, unspecified; J43.9 Emphysema, unspecified; E11.65 Type 2 diabetes mellitus with hyperglycemia; E11.40 Type 2 diabetes mellitus with diabetic neuropathy, unspecified; I10 Essential (primary) hypertension; D63.8 Anemia in other chronic diseases classified elsewhere; A59.9 Trichomoniasis, unspecified; E86.0 Dehydration; E66.01 Morbid (severe) obesity due to excess calories; G62.2 Polyneuropathy due to other toxic agents; T45.1X5A Adverse effect of antineoplastic and immunosuppressive drugs, initial encounter; F17.210 Nicotine dependence, cigarettes, uncomplicated; C50.911 Malignant neoplasm of unspecified site of right female breast; R29.703 NIHSS score 3; R20.2 Paresthesia of skin; Z79.02 Long term (current) use of antithrombotics/antiplatelets; Z79.84 Long term (current) use of oral hypoglycemic drugs; Z79.82 Long term (current) use of aspirin; Z90.49 Acquired absence of other specified parts of digestive tract; Z90.13 Acquired absence of bilateral breasts and nipples; Z90.81 Acquired absence of spleen; Z79.899 Other long term (current) drug therapy; Z91.018 Allergy to other foods; Z20.822 Contact with and (suspected) exposure to COVID-19
CPT/HCPCS: 36415; 70450; 70496; 70498; 70544; 70549; 70553; 71045; 71250; 71275; 80048; 80053; 80061; 81001; 82947; 83036; 83605; 83735; 84100; 84132; 84145; 84484; 85025; 85027; 85379; 85610; 85730; 86140; 87040; 87070; 87077; 87086; 87088; 87186; 87205; 87324; 87811; 92523; 92977; 93005; 94640; 94760; 96361; 96365; 96366; 97110; 97112; 97116; 97161; 97165; 97530; 99291; A4216; A9577; J1100; J1200; J1650; J2185; J2405; J3101; J3370; J3535; J7030; J7040; J7050; J7120; J7512; J7608; J7613; J9267; Q9967

== ENCOUNTER 2022-12-22 12:19 | Inpatient (IN) | payer MEDICARE, OTHER ==
--- OUTSIDE RECORDS SUMMARY | 2022-12-22 12:21 | XMS REPORT | Clinical Summary ---
:1955 Author Organization [facility] MD [facility] Address [address] [place] [address] Care Team Providers Name Role Phone Unavailable Primary Care Provider Unavailable Allergies Not on File Medications Not on file Active Problems Not on file Encounters Date Type Specialty Care Team Description 06/14/2022 Travel 06/02/2022 Travel after 12/22/2021 Social History Tobacco Use Types Packs/Day Years Used Date Smoking Tobacco: Never Assessed Sex Assigned at Date Recorded Not on file Job Start Date Occupation Industry Not on file Not on file Not on file Last Filed Vital Signs Not on file Plan of Treatment Not on file Results Not on fileafter 12/22/2021 Insurance Payer Benefit Plan / Subscriber ID Effective Dates Phone Addre ss Type Group HUMANA HUMANA GOLD [id number] 2021-[place] [address] [address] Medicare MEDICARE PLUS MEDICARE [facility] [id number]
--- OUTSIDE RECORDS SUMMARY | 2022-12-22 12:21 | XMS REPORT | Continuity of Care Document ---
:1955 Author Organization [facility] t Address [address] [place] [address] Care Team Providers Name Role Phone Stephania Sorenson Anavella Attending Clinician Unava ilable JENNIFER EMERY Attending Clinician Unavailable Adrian Sorenson Anav Admitting Clinician Unavailable Payers Payer Name Policy Type Policy Number Effective Date Expiration Date S ericka WM WM [id number] Problems This patient has no known problems. Allergies, Adverse Reactions, Alerts Allergy Allergy Status Severity Reaction(s) Onset Inactive Treating Comm ents Source Name Type Date Date Clinician NKMian Allergy Active ENCCLR 2-14 11:13: 06 Social History Social Habit Start Date Stop Date Quantity Comments Source Sex Assigned At [birth year] [facility] 00:00:00 00:00:00 MD Corley [facility] Medications This patient has no known medications. Procedures This patient has no known procedures. Encounters Start End Encounter Admission Attending Care Care Encounter Source Date/Time Date/Time Type Type Clinicians Facility Department ID 2022-11-16 Outpatient 3 [facility] ENCPL CVA [id number] [facility] 11:41:06 Joseph gonzales [facility] [place] 2022-11-14 Outpatient 3 [facility] ENCPL CVA [id number] [facility] 10:22:13 Geri gonzales [facility] [place] 2022-11-08 Outpatient 3 [facility] ENCPL CVA [id number] [facility] 10:26:46 hebeena, 0117 ss [facility] [place] 2022-12-06 2022-12-06 Outpatient READMISSIO MAINE ENCCLR ENCCLR [id number] ENCCLR 00:00:00 00:00:00 Jacey JENNIFER BARNETT KAYLAH 2022-11-17 2022-12-03 Inpatient 3 [facility] ENCPL CVA [id number] [facility] 16:35:00 14:20:00 janet, 0126 ss [facility] Tatyana messer 2022-06-14 2022-06-14 Travel [id number] [facility] 00:00:00 00:00:00 [id number] ity of 3.412.2.[id number] .[id number] 084.8 .8 [facility] 2022-06-02 2022-06-02 Travel 1.2.840.1 [id number] Univers 00:00:00 00:00:00 [id number] [id number] ity of 3.412.2.7 2.[place]7.3.698 [place] .[id number] 084.8 MD Ta [facility] Results This patient has no known results.
[2022-12-22 12:43] LABS: Protime INR 1.25
--- NOTE | 2022-12-22 13:01 | RAD REPORT ---
EXAM DESCRIPTION: CT - Ct Stroke Brain Wo Cont - 12/22/2022 12:45 pm CLINICAL HISTORY: STROKE ALERT COMPARISON: Head angio dated 12/22/2022; Head Brain Wo Cont dated 11/03/2022; Neck Angio dated 12/22/2022 TECHNIQUE: Noncontrast head CT images ad were obtained without IV contrast. Multiplanar reformats we re generated and reviewed. All CT scans are performed using dose optimization technique as appropriate and may include automated exposure control or mA/KV adjustment according to patient size. FINDINGS: No intracranial hemorrhage, mass, or edema. Midline structures are unremarkable. Normal ventricular caliber for age. Stable right parietal encephalomalacia. Blue-white matter differentiation otherwise preserved, withou t evidence of acute infarct. No abnormal extra-axial fluid collections. Mastoid air cells are well aerated. Moderate mucosal thickening in the right ethmoidal and sphenoidal sinuses, with a right sphenoid sinus air-fluid level. . No acute bony findings. IMPRESSION: No evidence of an acute intracranial process. Stable sequelae of right parietal remote ischemia. Moderate inflammatory paranasal sinus mucosal thickening with the right sphenoid sinus air-fluid leve l. Please correlate clinically for evidence of acute sinusitis. The findings were communicated to Sacha Mckeon on 12/22/2022 at 12:57 hours.
--- NOTE | 2022-12-22 13:05 | RAD REPORT ---
EXAM DESCRIPTION: CT - Head angio - 12/22/2022 12:45 pm CLINICAL HISTORY: WEAKNESS COMPARISON: Head Brain Wo Cont dated 11/03/2022; Head angio dated 11/02/2022; Neck Angio dated 3 TECHNIQUE: Axial CT angiography images of the head was performed with multiplanar and maximum intens ity projection reconstructions. Images performed following intravenous administration of 100mL Isovue 370. All CT scans are performed using dose optimization technique as appropriate and may include automated exposure control or mA/KV adjustment according to patient size. FINDINGS: No evidence of large vessel occlusion. No evidence of aneurysm or dissection flap is detec basil. No flow-limiting stenosis or vascular malformation identified. Patent left posterior communicat ing artery with a diminutive left P1 segment. Moderate atherosclerotic calcific plaque along the Louis cavernous portions of the ICA bilaterally , with some ectasia of the right proximal cavernous ICA, measuring up to 8 millimeter in caliber. No definitive saccular aneurysm. Antegrade flow is seen in the vertebral arteries. The left vertebral artery is dominant. The visualized dural venous sinuses are grossly patent. Nonspecific fullness in the region of the adenoid, could be reactive/inflammatory. IMPRESSION: No evidence of large vessel occlusion or flow-limiting stenosis. Atherosclerotic changes as above, with mild ectasia of the right cavernous ICA. The adenoidal soft tissue fullness, nonspecific, and could be reactive/inflammatory.
[2022-12-22 13:07] LABS: Absolute Lymphocytes (CBC) 6.1 K/uL (0.7-4.9); Hematocrit 34.7 % (36.0-45.0); Lymphocytes % 28.1 % (15.3-44.8); MCV 95.6 fL (80-100); MPV 9.7 fL (7.6-11.3); RBC Red Blood Cell Count 3.63 M/uL (3.86-4.86)
--- NOTE | 2022-12-22 13:12 | RAD REPORT ---
EXAM DESCRIPTION: CT - Neck Angio - 12/22/2022 12:45 pm CLINICAL HISTORY: weakness COMPARISON: Neck Angio dated 11/02/2022; Neck Angio dated 05/09/2022; Neck Angio dated 07/08/2021; Head angio dated 12/22/2022 TECHNIQUE: Axial CT angiography images of the head was performed with multiplanar and maximum intens ity projection reconstructions. Images performed following intravenous administration of mL Isovue [address] scans are performed using dose optimization technique as appropriate and may include automated exposure control or mA/KV adjustment according to patient size. FINDINGS: A left aortic arch is identified with bovine configuration of the great vessels. No significant flow abnormality is seen of the common carotid bilaterally. Moderate atherosclerotic calcific plaque along the proximal left ICA, with moderate luminal narrowing , with narrowest luminal diameter measuring 2.6 millimeter compared to 5.2 millimeter more distally f rom amounting to 50% stenosis by NASCET criteria. Similar changes at the right ICA origin, with narro west luminal diameter measuring 3.7 millimeter, compared to 5.5 millimeter more distally, amounting t o 33% stenosis by NASCET criteria. Vessels are otherwise patent. Mild atherosclerotic narrowing at the left vertebral artery origin. Bilateral mild tortuosity of the proximal vertebral arteries more so on the left. Normal flow is seen within both vertebral arteries o therwise. Moderate centrilobular emphysematous changes seen in upper lungs. Incidentally noted hypoattenuating dominant right thyroid lobe 2.5 centimeter nodule. IMPRESSION: Bilateral proximal cervical ICA moderate atherosclerotic calcific plaque formation, with up to 50% stenosis pannus criteria along the proximal left ICA. Mild atherosclerotic narrowing of th e left vertebral artery origin. No other significant flow abnormality of the neck vessels is identifi ed. Incidentally noted right thyroid lobe 2.5 centimeter nodule, can't be separately evaluated on [facility] ed thyroid ultrasound on an outpatient basis.
[2022-12-22 13:29] LABS: Potassium 3.5 mmol/L (3.5-5.1); Troponin High Sensitivity 9.4 pg/mL (<58.9)
[2022-12-22 13:46] LABS: Blood Morphology Comment NOT SEEN (NOT SEEN); Platelet Estimate ADEQ; White Blood Cell Scan OK (OK)
--- NOTE | 2022-12-22 13:55 | RAD REPORT ---
[facility] CLINICAL HISTORY: weakness COMPARISON: Chest Single View dated 11/12/2022; Chest Single View dated 11/09/2022; Chest Single View dated 11/02/2022; Chest Single View dated 05/18/2022 TECHNIQUE: Portable AP view of the chest. FINDINGS: The lungs are clear.Stable diffuse chronic central interstitial thickening. No pneumothora x or effusion. The cardiomediastinal contours are unremarkable. Surgical clips in the axilla bilatera lly, stable. IMPRESSION: No acute cardiopulmonary process. Stable chronic findings which may relate to COPD.
[2022-12-22 14:25] LABS: Urine Blood 1+ (Negative); Urine Glucose Negative (Negative); Urine Protein 2+ (Negative); Urine Specific Gravity <=1.005 (1.005-1.030)
[2022-12-22 14:45] LABS: Urine Bacteria 20-50 /HPF (<20); Urine RBC 21-50 /HPF (None Seen); Urine WBC Clump Occasional /HPF (None Seen)
[2022-12-22] MEDS ORDERED: ONDANSETRON 4 MG/2 ML VIAL IV PRN (14:58)
[2022-12-22] MEDS ORDERED: ACETAMINOPHEN 500 MG TAB PO PRN (14:58)
--- NOTE | 2022-12-22 15:00 | EDPHYS ---
Physician Documentation [facility] Name: Maritza Jackson Age: 67 yrs Sex: Female : 1955 Arrival Date: 12/22/2022 Time: 12:25 Bed 8 Private MD: ED Physician Sacha Mckeon HPI: 12/22 12:59 This 67 yrs old Female presents to ER via EMS with complaints of Weakness. rn 12:59 The patient presents to the emergency department with weakness of the right lower rn extremity, that is moderate. Onset: The symptoms/episode began/occurred 1 hour(s) ago. Context: occurred at home, occurred while the patient was at rest. Associated signs and symptoms: Pertinent positives: weakness, Pertinent negatives: altered mental status, fever, neck stiffness, seizure. Severity of symptoms: At their worst the symptoms were moderate in the emergency department the symptoms have resolved. Current symptoms: Currently, the patient is not experiencing any symptoms. The patient has experienced similar episodes in the past. The patient has not recently seen a physician. Pt reports at home, was doing some PT exercises, noticed RLE "heaviness and weakness". 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 No arm weakness. Had stroke Nov 02, 2022, where she received TNKase. Now went away and back to her baseline of left sided weakness.. Historical: - Allergies: 12:30 Pineapple; ph - PMHx: 12:30 diabetes mellitus; Hypercholesterolemia; Hypertensive disorder; Cerebrovascular ph accident; COPD; breast cancer; - PSHx: 12:30 mastectomy; ph - Immunization history:: Adult Immunizations unknown. - Social history:: Smoking status: Patient/guardian denies using tobacco, Stopped _ months ago 2. - Family history:: not pertinent. - Hospitalizations: : No recent hospitalization is reported. ROS: 12:59 Constitutional: Negative for fever, chills, and weight loss, Cardiovascular: Negative rn for chest pain, palpitations, and edema, Respiratory: Negative for shortness of breath, cough, wheezing, and pleuritic chest pain, Abdomen/GI: Negative for abdominal pain, nausea, vomiting, diarrhea, and constipation, Back: Negative for injury and pain, MS/Extremity: Negative for injury and deformity, Skin: Negative for injury, rash, and discoloration, Neuro: Negative for headache, numbness, tingling, and seizure. Exam: 12:59 Constitutional: This is a well developed, well nourished patient who is awake, alert, rn and in no acute distress. Head/Face: Normocephalic, atraumatic. Cardiovascular: Tachycardic, regular. No pulse deficits. Respiratory: Speaking full sentences, unlabored. No increased work of breathing, no retractions or nasal flaring. Abdomen/GI: Soft, non-tender Skin: Warm, dry MS/ Extremity: Pulses equal, no cyanosis. Neuro: Awake and alert, GCS 15, oriented to person, place, time, and situation. Cranial nerves II-XII grossly intact. Motor strength 4/5 LUE/LLE with more distal weakness present, 5/5 strength without drift RUE/RLE. Sensory grossly intact. Vital Signs: 12:26 BP 99 / 72; Pulse 101; Resp 22; Temp 97.7; Pulse Ox 92% on R/A; Weight 94.8 kg; Height ph 5 ft. 3 in. (160.02 cm); Pain 0/10; 14:13 BP 122 / 70; Pulse 84; Resp 15; Pulse Ox 100% ; hb 16:15 BP 116 / 50; Pulse 95; Resp 15; Pulse Ox 99% ; hb 17:00 Temp 98.8(O); nj1 17:57 BP 113 / 64; Pulse 93; Resp 17; Pulse Ox 100% ; hb 18:50 Temp 102.6(O); nj1 20:22 Pulse 94; Resp 19; Pulse Ox 91% on R/A; kd3 12:26 Body Mass Index 37.02 (94.80 kg, 160.02 cm) ph NIH Stroke Scale Scores: 12:23 NIHSS Score: 0 ph 13:04 NIHSS Score: 0 rn MDM: 12:25 Patient medically screened. rn 12:38 ED course: Pt back to baseline with left sided weakness. Not TNKase candidate due to rn symptoms resolving as well as last confirmed CVA was Nov 02 with TNKase administered at that time.. 13:08 Discussion of test interpretation with radiology: I had a discussion with turner machine regarding a test interpretation. CT head negative per discussion with radiologist. ED course: CT head neg. 14:53 Data reviewed: vital signs, nurses notes. rn 14:54 Consideration of Admission/Observation Patient was admitted/placed on observation. rn Escalation of care including admission/observation considered. Management of patient was discussed with the following: Hospitalist: Management of case discussed with hospitalist. I considered the following discharge prescriptions or medication management in the emergency department Medications were administered in the Emergency Department. See MAR. Counseling: I had a detailed discussion with the patient and/or guardian regarding: the historical points, exam findings, and any diagnostic results supporting the discharge/admit diagnosis, lab results, radiology results, the need for further work-up and treatment in the hospital. Response to treatment: the patient's symptoms have mildly improved after treatment, and as a result, I will admit patient. 15:21 ED course: Blood cultures ordered, rocephin ordered and not given yet, confirmed with rn nurse. . 12/22 12:26 Order name: Basic Metabolic Panel; Complete Time: 13:47 rn 12/22 12:26 Order name: CBC with Diff; Complete Time: 13:47 rn 12/22 12:26 Order name: High Sensitivity Troponin; Complete Time: 13:47 rn 12/22 12:26 Order name: Protime (+inr); Complete Time: 13:47 rn 12/22 12:26 Order name: Ptt, Activated; Complete Time: 13:47 rn 12/22 12:26 Order name: CT Stroke Brain w/o Contrast; Complete Time: 13:47 rn 12/22 12:26 Order name: Stroke CXR 1 View; Complete Time: 13:56 rn 12/22 12:26 Order name: EKG; Complete Time: 12:27 rn 12/22 12:26 Order name: Accucheck; Complete Time: 13:36 rn 12/22 12:26 Order name: Cardiac monitoring; Complete Time: 12:37 rn 12/22 12:26 Order name: EKG - Nurse/Tech; Complete Time: 14:55 rn 12/22 12:26 Order name: IV Saline Lock; Complete Time: 13:36 rn 12/22 12:26 Order name: Labs collected and sent; Complete Time: 13:36 rn 12/22 12:26 Order name: NPO; Complete Time: 12:37 rn 12/22 12:26 Order name: O2 Per Protocol; Complete Time: 12:37 rn 12/22 12:26 Order name: O2 Sat Monitoring; Complete Time: 12:37 rn 12/22 12:26 Order name: Stroke Swallow Screen; Complete Time: 14:55 rn 12/22 12:32 Order name: Head Angio CT; Complete Time: 13:47 rn 12/22 12:32 Order name: Neck Angio CT; Complete Time: 13:47 rn 12/22 12:42 Order name: Labs - recollect needed: all hemolyzed; Complete Time: 13:01 iw 12/22 13:13 Order name: CREATININE WHOLE BLOOD; Complete Time: 13:47 EDIL 12/22 13:14 Order name: CBC Smear Scan; Complete Time: 13:47 [facility] 12/22 14:25 Order name: Urine Dipstick-Ancillary; Complete Time: 14:25 EDIL 12/22 14:27 Order name: Urine Microscopic Only; Complete Time: 14:53 ph 12/22 14:57 Order name: Urine Culture [facility] 12/22 15:05 Order name: Physical Therapy Consult [facility] 12/22 15:05 Order name: Heart Healthy [facility] 12/22 15:05 Order name: Urinalysis [facility] 12/22 15:05 Order name: Lipid Profile [facility] 12/22 15:05 Order name: Lipid Profile [facility] 12/22 15:13 Order name: SARS RAPID ph 12/22 15:20 Order name: Blood Culture Adult (2): Please draw prior to abx rn 12/22 16:57 Order name: Glucose, Ancillary Testing [facility] 12/22 17:59 Order name: Glucose, Ancillary Testing [facility] Administered Medications: 18:35 Drug: Rocephin (cefTRIAXone) 1 grams {Note: Mixed in 50ml NS.} Route: IV; Rate: nj1 calculated rate; Infused Over: 30 mins; Site: left antecubital; Delivery: Primary tubing; 19:05 Follow up: Response: No adverse reaction; IV Status: Completed infusion nj1 19:18 Drug: Tylenol 650 mg Route: PO; ph 20:22 Follow up: Response: No adverse reaction; Temperature is decreased kd3 Disposition Summary: 12/22/22 15:00 Hospitalization Ordered Hospitalization Status: Observation rn Provider: Ross Mckeon rn Location: Telemetry/MedSurg (observation) rn Condition: Stable rn Problem: new rn Symptoms: have improved rn Bed/Room Type: Standard rn Room Assignment: 415(12/22/22 16:42) kj1 Diagnosis - Transient cerebral ischemic attack, unspecified rn - UTI/ Urinary tract infection, site not specified rn - Weakness rn Forms: - Medication Reconciliation Form rn - SBAR form rn NIH Stroke Scale - NIH Stroke Score Date: 12/22/2022 Time: 12:23 Total Score = 0 1a. Level of Consciousness (LOC) - 0(Alert) 1b. Level of Consciousness (LOC) (Month \\T\\ Age) - 0(Both) 1c. LOC Commands (Open \\T\\ Closes Eyes/Lumber Tailer) - 0(Both) 2. Best Gaze (Lateral Gaze Paresis) - 0(Normal) 3. Visual Field Loss - 0(No visual loss) 4. Facial Palsy - 0(Normal) 5a. Left Arm: Motor (10-second hold) - 0(No drift) 5b. Right Arm: Motor (10-second hold) - 0(No drift) 6a. Left Leg: Motor (5-second hold - always test supine) - 0(No drift) 6b. Right Leg: Motor (5-second hold - always test supine) - 0(No drift) 7. Limb Ataxia (finger/nose \\T\\ heel/armstrong - test with eyes open) - 0(Absent) 8. Sensory Loss (pinprick arms/legs/face) - 0(Normal) 9. Best Language: Aphasia (description/naming/reading) - 0(No aphasia) 10. Dysarthria (speech clarity - read or repeat words) - 0(Normal) 11. Extinction and Inattention (visual/tactile/auditory/spatial/personal) - 0(No abnormality) Initials: NIH Stroke Scale - NIH Stroke Score Date: 12/22/2022 Time: 13:04 Total Score = 0 1a. Level of Consciousness (LOC) - 0(Alert) 1b. Level of Consciousness (LOC) (Month \\T\\ Age) - 0(Both) 1c. LOC Commands (Open \\T\\ Closes Eyes/Lumber Tailer) - 0(Both) 2. Best Gaze (Lateral Gaze Paresis) - 0(Normal) 3. Visual Field Loss - 0(No visual loss) 4. Facial Palsy - 0(Normal) 5a. Left Arm: Motor (10-second hold) - 0(No drift) 5b. Right Arm: Motor (10-second hold) - 0(No drift) 6a. Left Leg: Motor (5-second hold - always test supine) - 0(No drift) 6b. Right Leg: Motor (5-second hold - always test supine) - 0(No drift) 7. Limb Ataxia (finger/nose \\T\\ heel/armstrong - test with eyes open) - 0(Absent) 8. Sensory Loss (pinprick arms/legs/face) - 0(Normal) 9. Best Language: Aphasia (description/naming/reading) - 0(No aphasia) 10. Dysarthria (speech clarity - read or repeat words) - 0(Normal) 11. Extinction and Inattention (visual/tactile/auditory/spatial/personal) - 0(No abnormality) Initials: rn Signatures: Dispatcher [employer] EDShi Peter RN RN iw Nieto, Roman, MD MD rn Hall, Patricia, RN RN ph Jackson, Lorie [email or web address] Marly Paul RN RN nj1 Elzbieta Alba RN kd3 Corrections: (The following items were deleted from the chart) 16:42 15:00 thanh kj1
--- NOTE | 2022-12-22 15:00 | ER ---
Nurse's Notes [facility] Name: Maritza Jackson Age: 67 yrs Sex: Female : 1955 Arrival Date: 12/22/2022 Time: 12:25 Bed 8 Private MD: Diagnosis: Transient cerebral ischemic attack, unspecified;UTI/ Urinary tract infection, site not specified;Weakness Presentation: 12/22 12:26 Chief complaint: EMS states: Pt hx of CVA in Oct w/ L sided deficits, today at approx ph 1145 she began to have R sided weakness in arm and leg, states that leg felt "heavy", symptoms resolved CAKE WINDER at ED, BP was low 80/50, pt states that she has been taking 100 mg of losartan when she was supposed to be taking 25 mg, spo2 was low at 90% RA, pt denies SOB, hx of COPD. Coronavirus screen: Vaccine status: Patient reports being unvaccinated. Ebola Screen: No symptoms or risks identified at this time. Initial Sepsis Screen: Does the patient meet any 2 criteria? No. Patient's initial sepsis screen is negative. Does the patient have a suspected source of infection? No. Patient's initial sepsis screen is negative. Risk Assessment: Do you want to hurt yourself or someone else? Patient reports no desire to harm self or others. Onset of symptoms was December 22, 2022. 12:26 Method Of Arrival: EMS: [facility] 12:26 Acuity: MAYA 2 ph 12:34 No acute neurological deficit is noted. Pre-hospital glucose is not applicable to this ph patient. Triage Assessment: 12:25 The onset of the patients symptoms was December 22, 2022 at 11:45. General: Appears in no ph apparent distress. comfortable, well groomed, Behavior is calm, cooperative, appropriate for age. Stroke Activation: Physician: Stroke Attending; Name: ; Notified At: 12:25; Arrived At: Physician: Chief Stroke Resident; Name: ; Notified At: 12:25; Arrived At: Physician: Stroke Resident; Name: ; Notified At: 12:25; Arrived At: Physician: ED Attending; Name: Mike; Notified At: 12:25; Arrived At: 12:20 Physician: ED Resident; Name: ; Notified At: 12:25; Arrived At: Historical: - Allergies: 12:30 Pineapple; ph - PMHx: 12:30 diabetes mellitus; Hypercholesterolemia; Hypertensive disorder; Cerebrovascular ph accident; COPD; breast cancer; - PSHx: 12:30 mastectomy; ph - Immunization history:: Adult Immunizations unknown. - Social history:: Smoking status: Patient/guardian denies using tobacco, Stopped _ months ago 2. - Family history:: not pertinent. - Hospitalizations: : No recent hospitalization is reported. Screenin:[address] [facility] ED Fall Risk Assessment (Adult) History of falling in the last 3 months, ph including since admission No falls in past 3 months (0 pts) Confusion or Disorientation No (0 pts) Intoxicated or Sedated No (0 pts) Impaired Gait Yes (1 pt) Mobility Assist Device Used Yes (1 pt) Altered Elimination No (0 pt) Score/Fall Risk Level 0 - 2 = Low Risk Oriented to surroundings, Maintained a safe environment, Hourly rounding (assess needs \\T\\ fall precautionary measures) done. Abuse screen: Denies threats or abuse. Denies injuries from another. Nutritional screening: No deficits noted. Tuberculosis screening: No symptoms or risk factors identified. Assessment: 12:20 General: Appears in no apparent distress. comfortable, Behavior is calm, cooperative, ph appropriate for age. General: Denies fever, feeling ill. Pain: Denies pain. Neuro: Level of Consciousness is awake, alert, obeys commands, Oriented to person, place, time, situation, Moves all extremities. Speech is normal, Facial symmetry appears normal, Pupils are PERRLA, Reports weakness in right arm and leg, now resolved. Cardiovascular: Capillary refill < 3 seconds in bilateral fingers Patient's skin is warm and dry. Respiratory: Airway is patent Respiratory effort is even, unlabored, Denies shortness of breath. GI: No signs and/or symptoms were reported involving the gastrointestinal system. : Denies burning with urination. Derm: Skin is pink, warm \\T\\ dry. Musculoskeletal: Circulation, motion, and sensation intact. 12:23 VAN Scoring: Arm Drift: Patients demonstrates NO arm weakness. Patient is VAN Negative. ph TNKase (Tenecteplase) Screening: Contraindications: Other: received TNK 11/02/22 Is the patient on Aspirin, Heparin, or Warfarin:. 12:25 Reassessment: Code stroke called overhead. ph 13:29 Reassessment: Patient appears in no apparent distress at this time. Patient and/or hb family updated on plan of care and expected duration. Pain level reassessed. Patient is alert, oriented x 3, equal unlabored respirations, skin warm/dry/pink. 13:30 [place] Swallow Protocol Brief Cognitive Screen What is your name? Normal, Where are you ph right now? Normal, What year is it? Normal. Oral Mechanism Examination Facial Symmetry: Normal, Motion: Normal, Lip Closure: Normal, Oral Mechanism Result: Normal. 3 oz Water Swallow Challenge: Pt able to drink all water without stopping, coughing, choking or throat clearing: Yes Result: PASS MD Notified: Sacha Mckeon MD. 14:11 Reassessment: Patient appears in no apparent distress at this time. Patient and/or hb family updated on plan of care and expected duration. Pain level reassessed. Patient is alert, oriented x 3, equal unlabored respirations, skin warm/dry/pink. 15:22 Reassessment: Patient appears in no apparent distress at this time. Patient and/or ph family updated on plan of care and expected duration. Pain level reassessed. Patient is alert, oriented x 3, equal unlabored respirations, skin warm/dry/pink. hospitalist at bedside. 16:45 Reassessment: Patient appears in no apparent distress at this time. Patient is alert, nj1 oriented x 3, equal unlabored respirations, skin warm/dry/pink. Pt has requested to get her blood sugar checked. See results. Patient refuses food at this time, this RN offers orange juice and pudding, she accepts.. 17:11 Reassessment: Patient appears in no apparent distress at this time. Patient states nj1 feeling better. 17:50 Reassessment: Patient appears in no apparent distress at this time. [place] juice with 3 nj1 packets of sugar given to patient as she declined food offered. Patient denies pain at this time. Patient states feeling better. 18:20 Reassessment: Unsuccessful attempt to call report at this time, phone rang, no answer. nj1 Primary nurse notified. Vital Signs: 12:26 BP 99 / 72; Pulse 101; Resp 22; Temp 97.7; Pulse Ox 92% on R/A; Weight 94.8 kg; Height ph 5 ft. 3 in. (160.02 cm); Pain 0/10; 14:13 BP 122 / 70; Pulse 84; Resp 15; Pulse Ox 100% ; hb 16:15 BP 116 / 50; Pulse 95; Resp 15; Pulse Ox 99% ; hb 17:00 Temp 98.8(O); nj1 17:57 BP 113 / 64; Pulse 93; Resp 17; Pulse Ox 100% ; hb 18:50 Temp 102.6(O); nj1 20:22 Pulse 94; Resp 19; Pulse Ox 91% on R/A; kd3 12:26 Body Mass Index 37.02 (94.80 kg, 160.02 cm) ph NIH Stroke Scale Scores: 12:23 NIHSS Score: 0 ph 13:04 NIHSS Score: 0 burn out tender lace Course: 12:25 Patient arrived in ED. rn 12:25 Sacha Mckeon MD is Attending Physician. rn 12:26 Pauline Sun RN is Primary Nurse. ph 12:30 Triage completed. ph 12:31 Arm band placed on Patient placed in an exam room, on pvc monitor, on pulse ph oximetry. 12:32 Patient has correct armband on for positive identification. Bed in low position. Call ph light in reach. Side rails up X2. Client placed on continuous cardiac and pulse oximetry monitoring. NIBP monitoring applied. 12:47 CT Stroke Brain w/o Contrast In Process Unspecified. EDMS 12:[address] In Process Unspecified. EDMS 12:[address] In Process Unspecified. EDMS 13:07 Stroke CXR 1 View In Process Unspecified. EDMS 14:59 Ross Mckeon MD is Hospitalizing Provider. rn 18:05 Blood Culture Adult (2): Please draw prior to abx Sent. nj1 19:45 Primary Nurse role handed off by Pauline Sun RN wm 20:21 Elzbieta Alba RN is Primary Nurse. kd3 20:21 No provider procedures requiring assistance completed. Patient admitted, IV remains in kd3 place. Administered Medications: 18:35 Drug: Rocephin (cefTRIAXone) 1 grams {Note: Mixed in 50ml NS.} Route: IV; Rate: nj1 calculated rate; Infused Over: 30 mins; Site: left antecubital; Delivery: Primary tubing; 19:05 Follow up: Response: No adverse reaction; IV Status: Completed infusion nj1 19:18 Drug: Tylenol 650 mg Route: PO; ph 20:22 Follow up: Response: No adverse reaction; Temperature is decreased kd3 Medication: 12:37 VIS not applicable for this client. ph Outcome: 15:00 Decision to Hospitalize by Provider. rn 20:21 Admitted to Med/surg kd3 20:21 Condition: stable 20:21 Discharge instructions given to patient, Instructed on discharge instructions, follow up and referral plans. Demonstrated understanding of instructions, follow-up care. 20:23 Patient left the ED. kd3 NIH Stroke Scale - NIH Stroke Score Date: 12/22/2022 Time: 12:23 Total Score = 0 1a. Level of Consciousness (LOC) - 0(Alert) 1b. Level of Consciousness (LOC) (Month \\T\\ Age) - 0(Both) 1c. LOC Commands (Open \\T\\ Closes Eyes/Customer Service Analyst) - 0(Both) 2. Best Gaze (Lateral Gaze Paresis) - 0(Normal) 3. Visual Field Loss - 0(No visual loss) 4. Facial Palsy - 0(Normal) 5a. Left Arm: Motor (10-second hold) - 0(No drift) 5b. Right Arm: Motor (10-second hold) - 0(No drift) 6a. Left Leg: Motor (5-second hold - always test supine) - 0(No drift) 6b. Right Leg: Motor (5-second hold - always test supine) - 0(No drift) 7. Limb Ataxia (finger/nose \\T\\ heel/armstrong - test with eyes open) - 0(Absent) 8. Sensory Loss (pinprick arms/legs/face) - 0(Normal) 9. Best Language: Aphasia (description/naming/reading) - 0(No aphasia) 10. Dysarthria (speech clarity - read or repeat words) - 0(Normal) 11. Extinction and Inattention (visual/tactile/auditory/spatial/personal) - 0(No abnormality) Initials: NIH Stroke Scale - NIH Stroke Score Date: 12/22/2022 Time: 13:04 Total Score = 0 1a. Level of Consciousness (LOC) - 0(Alert) 1b. Level of Consciousness (LOC) (Month \\T\\ Age) - 0(Both) 1c. LOC Commands (Open \\T\\ Closes Eyes/Customer Service Analyst) - 0(Both) 2. Best Gaze (Lateral Gaze Paresis) - 0(Normal) 3. Visual Field Loss - 0(No visual loss) 4. Facial Palsy - 0(Normal) 5a. Left Arm: Motor (10-second hold) - 0(No drift) 5b. Right Arm: Motor (10-second hold) - 0(No drift) 6a. Left Leg: Motor (5-second hold - always test supine) - 0(No drift) 6b. Right Leg: Motor (5-second hold - always test supine) - 0(No drift) 7. Limb Ataxia (finger/nose \\T\\ heel/armstrong - test with eyes open) - 0(Absent) 8. Sensory Loss (pinprick arms/legs/face) - 0(Normal) 9. Best Language: Aphasia (description/naming/reading) - 0(No aphasia) 10. Dysarthria (speech clarity - read or repeat words) - 0(Normal) 11. Extinction and Inattention (visual/tactile/auditory/spatial/personal) - 0(No abnormality) Initials: rn Signatures: Dispatcher [employer] EDMS Sacha Mckeon MD MD rn Hall, Patricia, RN RN ph Baxter, Heather, RN RN hb Marsh, Wendy wm Doucette, Kyli, RN RN kd3 Marly Paul RN RN nj1 Corrections: (The following items were deleted from the chart) 20:22 20:22 Pulse 94bpm; Resp 19bpm; Pulse Ox 99% RA; kd3 kd3
[2022-12-22 15:44] LABS: SARS-CoV-2 Antigen Rapid Res Negative (Negative)
--- NOTE | 2022-12-22 16:15 | P.HP ---
Certification for Inpatient Patient admitted to: Inpatient With expected LOS: >2 Midnights Patient will require the following post-hospital care: Home Health Services Practitioner: I am a practitioner with admitting privileges, knowledge of patient current condition, hospital course, and medical plan of care. Services: Services provided to patient in accordance with Admission requirements found in Title 42 Section 412.3 of the Code of Federal Regulations Patient History Date of Service: 12/22/22 Reason for admission: TIA, UTI. History of Present Illness: 67-year-old female patient with medical history significant for hypertension, hyperlipidemia, type 2 diabetes and obesity who also recently had a CVA episode who as per report was in rehab getting physical therapy when she began to feel numb in the right side of the lower extremity. She reported that when she had a stroke in October 2022 she had left-sided weakness and while she was receiving therapy she began to feel numb and on the right side. No overt fall, fever, chills, rigor, nausea, vomiting, diarrhea episode prior to encounter. He reported feeling of numbness and inability to feel leg lasted a couple of seconds and sensation return. He was admitted for inpatient care and for TIA rule out. Her UA was very concerning for UTI and she also had leukocytosis of 21k. Allergies pineapple Allergy (Verified 05/03/22 09:00) Anaphylaxis Home Medications: Atorvastatin Calcium [Lipitor] 40 mg PO BEDTIME #30 tab 07/21/21 Clopidogrel Bisulfate [Plavix*] 75 mg PO DAILY #30 tablet 07/21/21 Metformin ER [Glucophage ER*] 500 mg PO BIDWM #60 tab.sa 07/21/21 LORazepam [Ativan*] 0.5 mg PO BID PRN 05/03/22 Aspirin 81 mg PO DAILY #30 tab.chew 05/13/22 Losartan Potassium [Cozaar*] 100 mg PO DAILY 06/14/22 Magnesium Oxide 400 mg PO BID 06/14/22 Gabapentin 300 mg PO BID 11/03/22 Glimepiride 2 mg PO DAILY 11/03/22 Pantoprazole Sodium 40 mg PO 1X 11/03/22 Acetylcyst 20% Resp [Mucomyst 20% (FOR RESPIRATORY)*] 4 ml IH [id number] #30 vial 11/07/22 Ensure Enlive 237 ml PO TID #30 can 11/07/22 Folic Acid 1 mg PO DAILY #30 tab 01/16/23 Benzonatate [Tessalon Perle*] 200 mg PO TID PRN cap 11/17/22 Loperamide [Imodium*] 2 mg PO Q4H PRN #0 cap 11/17/22 Meropenem [Merrem*] 1,000 mg IV Q8H 2 Days #6 ml 11/17/22 Mometasone/Formoterol [Dulera 200 Mcg-5 Mcg Inhaler] 13 gm IH BID #1 inhaler 11/17/22 predniSONE [Prednisone*] 20 mg PO DAILY #5 tab 11/17/22 - Past Medical/Surgical History Diabetic: Yes -: HTN -: NIDDM -: TIAs -: tobacco abuse -: CVAs -: Breast Cancer -: Bilateral mastectomy -: appendectomy -: splenectomy Psychosocial/ Personal History: Patient lives at home with her daughters. - Family History Father Notes: Patient was adopted - Social History Alcohol use: No CD- Drugs: No Caffeine use: Yes Review of Systems General: Malaise Eyes: Unremarkable ENT: Unremarkable Respiratory: Unremarkable Cardiovascular: Unremarkable Gastrointestinal: Unremarkable Genitourinary: Unremarkable Musculoskeletal: Unremarkable Integumentary: Unremarkable Neurological: Weakness, Numbness Physical Examination - Physical Exam General: Alert, Oriented x3 HEENT: Atraumatic, Normocephalic Neck: Supple Respiratory: Normal air movement Cardiovascular: Regular rate/rhythm, Normal S1 S2 Gastrointestinal: Soft and benign Musculoskeletal: No swelling Integumentary: No significant lesion Neurological: Normal speech, Normal strength at 5/5 x4 extr - Studies Laboratory Data (last 24 hrs) 12/22/22 13:00: PT 13.8 H, INR 1.25, APTT 33.1 12/22/22 13:00: WBC 21.60 H*, Hgb 11.3 L, Hct 34.7 L, Plt Count 373 12/22/22 13:00: Sodium 137, Potassium 3.5, BUN 10, Creatinine 0.89, Glucose 81 Assessment and Plan - Plan TIA: Episode of patient's transient numbness is concerning for TIA. She does have issues with prior CVA. We will continue Plavix and aspirin therapy for management. Continue physical therapy. We will obtain lipid panel to further evaluate. Neurology to evaluate as needed. UTI: UA slightly concerning 90 white cell of 21,000 and is also concerning. Empiric antibiotic therapy with Rocephin has been started Continue to monitor blood cultures for adjustment to therapy as needed Hypertension: We will continue to monitor vitals per unit protocol. We will continue antihypertensive medication.. Diabetes type 2: We will continue sliding scale insulin and monitor blood glucose before meals and at bedtime. Diabetic diet to be continued. Hyperlipidemia: Continue statin therapy Prophylaxis: Lovenox for DVT prophylaxis CODE STATUS: Full code Disposition: We will work-up TIA, rule out urinary tract infection and discharge when she is deemed clinically stable. - Advance Directives Does patient have a Living Will: No Does patient have a Durable POA for Healthcare: No
[2022-12-22] MEDS: CEFTRIAXONE 1,000 MG in NA CHLORIDE 0.9% 50 ML IVPB SCH (17:00)
[2022-12-22] MEDS ORDERED: NA CHLORIDE 0.9% 50 ML ONE (18:28)
[2022-12-22] MEDS ORDERED: CEFTRIAXONE 1000 MG/VIAL ONE (18:28)
[2022-12-22] MEDS ORDERED: ACETAMINOPHEN 325 MG TABLET ONE (19:19)
[2022-12-22] MEDS: GABAPENTIN 300 MG CAP PO SCH (22:04)
[2022-12-23 00:42] VITALS: BMI 37.0
--- NOTE | 2022-12-23 07:21 | P.PN ---
Date of Service: 12/23/22 Subjective feels slightly better no current numbness/tingling/weakness denies urinary symptoms ROS: A complete review of systems was performed and is negative except as mentioned above Physical Exam Gen: Alert, Oriented x3 HEENT: normal conjunctiva, sclera anicteric Respiratory: non labored respirations, +cough; diminished at bases bilaterally Cardiovascular: Regular rate/rhythm, Normal S1 S2 Gastrointestinal: soft, nontender, nondistended Neurological: Normal affect, moves all extremities, generalized weakness vitals reviewed Problem List Acute CVA / TIA Sepsis secondary to UTI h/o prior CVA chronic COPD Exacerbation, new/undiagnosed Breast cancer on chemotherapy HTN DM2 Morbid obesity ?TIA aspirin,plavix, statin neuro consult workup ordered UTI denies symptoms has leukocytosis continue rocephin VTE: lovenox Dispo: SNF
[2022-12-23 08:19] LABS: Absolute Lymphocytes (CBC) 5.7 K/uL (0.7-4.9); Hematocrit 35.2 % (36.0-45.0); Lymphocytes % 29.6 % (15.3-44.8); MCV 94.9 fL (80-100); MPV 9.7 fL (7.6-11.3); RBC Red Blood Cell Count 3.71 M/uL (3.86-4.86)
[2022-12-23 08:41] LABS: Potassium 3.4 mmol/L (3.5-5.1)
[2022-12-23] MEDS: GABAPENTIN 300 MG CAP PO SCH ×3 (09:28→20:52)
[2022-12-23] MEDS: ENOXAPARIN 40 MG/0.4 ML SQ SCH (09:28)
[2022-12-23] MEDS: CLOPIDOGREL 75 MG TABLET PO SCH (09:28)
[2022-12-23] MEDS: ASPIRIN 81 MG CHEWABLE TABLET PO SCH (09:28)
[2022-12-23] MEDS: CEFTRIAXONE 1,000 MG in NA CHLORIDE 0.9% 50 ML IVPB SCH (09:29)
[2022-12-23] MEDS ORDERED: LORazepam 2 MG/ML VIAL IV ONE (14:00)
--- NOTE | 2022-12-23 17:04 | RAD REPORT ---
EXAM DESCRIPTION: MRI - Brain Wo Cont - 12/23/2022 4:49 pm CLINICAL HISTORY: Right arm numbness and weakness COMPARISON: Head CT December 22, 2022 TECHNIQUE: Axial, sagittal, and coronal magnetic resonance images of the brain were obtained. FINDINGS: A 4.7 centimeter area of abnormal signal within right parietal lobe this is compatible wit h a late subacute infarction. It contains curvilinear areas of increased signal on T1 weighted sequen bear indicative of laminar cortical necrosis Diffusion-weighted/ADC mapping does not reveal evidence of acute infarction. The ventricles are normal caliber. An extra-axial fluid collection is not noted. Marked signal is present within the right mastoid. Frontal and sphenoid sinusitis present IMPRESSION: 4.7 centimeter late subacute infarction right parietal lobe. Laminar cortical necrosis i s present. Marked signal within the right mastoids may indicate mastoiditis
--- NOTE | 2022-12-23 17:35 | CON ---
Reason For Consultation: Consultation because of TIA and possible worsening stroke. History Of Present Illness: Ms. Jackson is a 67-year-old right-handed patient with hypertension, dyslipidemia, type 2 diabetes mellitus, and obesity who has had per her report, 2 strokes and a transient ischemic attack. This current visit was prompted after she developed sudden onset right upper extremity numbness and weakness while doing physical therapy for a left-sided stroke. The left-sided stroke occurred earlier in October where the upper and lower extremity with more weakness noted in the upper thigh and lower extremity, weakness occurred and this was in October. She has a history of breast cancer and has been on chemotherapy. She is status post bilateral mastectomy when that stroke occurred. She did do rehabilitation, but has not returned back to baseline, has still significant left-sided weakness when this new event occurred. When she came to [facility], she was found to have findings of a urinary tract infection with leukocytosis of 21,000. In terms of possible etiology of the event that may have been related to urinary tract infection. She describes the actual event as the left arm becoming weak and numb and remaining so for about 15 minutes. She believes she has returned towards baseline. She was taking aspirin and Plavix added and since hospitalization has received a gram of Rocephin for urinary tract infection on gabapentin 300 mg 3 times daily for diabetic neuropathy. Received Zofran for nausea, Tylenol for pain. Since her hospital admission, she still has persistent weakness which is more significant on the left than the right side, but there is some lack of dexterity in the right upper extremity and some weakness in both lower extremities. Past Medical History: As noted above. Tobacco abuse. Past Surgical History: Bilateral mastectomy, appendectomy, splenectomy. Allergies: PINEAPPLE. Home Medications: Lipitor 40 mg at bedtime, Plavix 75 mg daily, Glucophage 500 mg twice daily, Ativan 0.5 mg twice daily, aspirin 81 mg daily, Cozaar 100 mg daily, magnesium oxide 400 mg twice daily, gabapentin 300 mg 3 times daily, glimepiride 2 mg daily, pantoprazole 40 mg daily, Ensure Enlive 237 ml 3 times daily, folic acid 1 mg daily, Tessalon Perles 200 mg 3 times daily, Imodium 2 mg every 4 hours. Meropenem, she did receive that in October. She also received prednisone 10 mg daily earlier in October. Family History: The patient is adopted. Social History: No alcohol, tobacco, or IV drug use. She does drink caffeinated beverages. Review of Systems: She reports weakness in the upper extremity more on the left and new weakness on the right. Despite her UA showing a urinary tract infection, she had no significant symptoms of a UTI except weakness. No nausea, vomiting. No headache. No psychiatric active complaints. No gastrointestinal complaints. No dermatological complaints. No significant pulmonary complaints. Again weakness and numbness in the left and right upper extremity, left more than right. Physical Examination: Vital Signs: Blood pressure 125/66, pulse 91, respiratory rate 16, temperature 98.8, oxygen saturation from 90-97% on room air. Weight 209 pounds. Height 5 feet 3 inches. BMI 37.0. General: Ms. Jackson is resting in bed. HEENT: She is normocephalic, atraumatic. Sclerae are anicteric. Oropharynx is pink and moist. Neck: Supple. Chest: Clear. Abdomen: Soft. Extremities: Show no cyanosis or edema. Neurological: Cranial nerves show no focal deficits. Motor examination: The left upper extremity; she has 3/5 proximally and distally. In the right; she has 4+/5 proximally and distally. In the lower extremity on the left, 4/5, in the right 5-/5. Sensory exam; decreased light touch temperature in the left compared to the right upper and lower extremity. Coordination; she has decreased dexterity in the left compared to the right upper and lower extremity. Reflexes, depressed and asymmetric, more noted to be increased over the left compared to the right upper and lower extremity. In terms of gait, she will be ambulated with the physical therapist. Laboratory Studies: Yesterday; white blood cell count was 21.6, neutrophils 57.9, hemoglobin 11.3, platelets 376. INR 1.25. Chemistry: Sodium 141, potassium 3.4, chloride 109, carbon dioxide 28, BUN 8, creatinine 0.57, glucose ranged from 65 to 144. Calcium 8.6. Triglycerides 66, cholesterol 80, LDL 32, HDL 35. Cholesterol to HDL ratio of 2.29. Urinalysis shows 250 bacteria, greater than 50 white blood cells, 1+ esterase, 2+ protein, occasional white blood cell clumps. COVID-[address] scan of the brain showed no acute ischemic or hemorrhagic findings. There is sequelae of right parietal remote stroke with encephalomalacia in that region. CT angiogram of her head showed no evidence of large vessel disease or flow-limiting stenosis. CT angiogram of her neck showed moderate bilateral proximal cervical internal carotid artery stenosis, due to atherosclerotic calcified plaque. There is mild arthrosclerotic narrowing of the left vertebral artery. Incidental note is made of a right thyroid nodule measuring 2.5 cm, in which there is a suggestion of it be evaluated by ultrasound on outpatient basis. Assessment: Ms. Jackson is a 67-year-old patient with diabetes mellitus, hypertension, dyslipidemia, multiple prior strokes with a chronic right parietal stroke with some left hemiparesis that has worsened somewhat in the setting of urinary tract infection. She likely also has some ongoing weakness on the right side, although she thought it did resolve significantly when the right-sided arm weakness occurred and that has what actually prompted her to come to the hospital. She does not have obvious cranial nerve abnormalities. She does, however, require significant aggressive therapy to help her recover strength in the upper extremity and for coordination and dexterity as well, so she can manipulate objects that she is having significant difficulty doing that at this point. Plan: 1. Consult both physical, occupational, and speech therapy, and have the patient evaluated for possible admission to the inpatient rehabilitation unit for aggressive physical, occupational, speech therapy. 2. Continue with the treatment of her urinary tract infection with Rocephin as appropriate. 3. Continue with aggressive management of diabetes, dyslipidemia, and hypertension. 4. Continue aspirin 81 mg daily and Plavix 75 mg daily. 5. Continue Lovenox 40 mg subcutaneously daily for DVT prophylaxis. 6. Continue gabapentin 3 mg 3 times daily for diabetic peripheral neuropathy. 7. Zofran 4 mg as needed for nausea. The patient will be followed while in hospital and if she goes to the rehab unit, she will be followed up there. SEAMUS/JEANNETTE Voice ID: [id number] Report ID: [id number] ESTELA
--- NOTE | 2022-12-23 17:44 | CON ---
History Of Present Illness: Patient is consulted for urosepsis, known to me from previous admission. Patient has significant past medical history of hypertension, hyperlipidemia, type 2 diabetes melli tus, obesity, stroke, currently on chemotherapy for cancer, coming in with urinalysis showing more th an 50 wbc's count, leukocytosis of 21,000 and hypotension, currently being treated with Rocephin. Cu ltures are pending. Past Medical History: As per HPI. Social History: Nonsmoker, nondrinker. Family History: Noncontributory. Medications: Rocephin. See MAR for other medications. Allergies: PINEAPPLE. Review of Systems: A 10-point review was performed. Physical Examination: General: This is a 67-year-old female, lying in bed, not in any acute cardiopulmonary distress. Vital Signs: Temperature 98, pulse 80, respiration 19, blood pressure 97/54. HEENT: Unremarkable. Neck: Supple. Lungs: Clear to auscultation. Heart: S1, S2. Regular. Abdomen: Soft, nontender. Bowel sounds present. Extremities: No edema. Laboratory Data: Shows WBC 19.1, down from 21; hemoglobin 11.3; platelets are 376. Chemistry shows BUN of 8, creatinine 0.5. Urinalysis shows more than 50 wbc's. Micro data: Blood and urine culture s are pending. Assessment And Plan: Urosepsis in a patient with multiple medical problems, chemotherapy, and leukoc ytosis. We will recommend to continue antibiotic for 10 days depending on cultures. We will fine tu ne the antibiotic. We will follow the patient closely. Thank you Dr. Mckeon for consult. IWONA/JEANNETTE Voice ID: [id number] Report ID: [id number]
[2022-12-23 19:13] LABS: Specific Gravity 1.018 (1.005-1.030); Transitional Epithelial <5 /HPF (None Seen); Urine Bacteria >50 /HPF (<20); Urine Bilirubin NEGATIVE (Negative); Urine Blood Trace (Negative); Urine Clarity Turbid (Clear); Urine Color Yellow (Yellow); Urine Glucose NEGATIVE (Negative); Urine Mucus Slight /HPF (None Seen); Urine Protein 1+ (Negative); Urine RBC <5 /HPF (None Seen); Urine Urobilinogen Normal (Normal); Urine WBC Clump Occasional /HPF (None Seen); Urine pH 5.5 (5.0-7.0)
[2022-12-24 04:08] LABS: Absolute Lymphocytes (CBC) 6.7 K/uL (0.7-4.9); Hematocrit 34.4 % (36.0-45.0); MCV 95.3 fL (80-100); MPV 10.3 fL (7.6-11.3); RBC Red Blood Cell Count 3.61 M/uL (3.86-4.86)
[2022-12-24 04:29] LABS: Albumin 2.1 g/dL (3.4-5.0); Bilirubin Total 0.4 mg/dL (0.2-1.0); Potassium 3.3 mmol/L (3.5-5.1); Protein, Total 6.2 g/dL (6.4-8.2)
--- NOTE | 2022-12-24 07:18 | P.PN ---
Date of Service: 12/24/22 Subjective feels ok this morning; closer to baseline no difficulty urinating, no nausea/vomiting decreased PO intake, taste has been off for a week or 2 again, drank ~2 pitchers of water yesterday no current numbness/tingling/weakness BP borderline /low ROS: A complete review of systems was performed and is negative except as mentioned above Physical Exam Gen: Alert, Oriented x3 HEENT: normal conjunctiva, sclera anicteric Respiratory: non labored respirations, +cough; diminished at bases bilaterally Cardiovascular: Regular rate/rhythm, Normal S1 S2 Gastrointestinal: soft, nontender, nondistended Neurological: Normal affect, moves all extremities, generalized weakness vitals reviewed Problem List Acute CVA / TIA Sepsis secondary to UTI h/o prior CVA chronic COPD Exacerbation, new/undiagnosed Breast cancer on chemotherapy HTN DM2 Morbid obesity TIA aspirin,plavix, statin neuro consulted recommend eval for rehab patient brought up SNF/NH as well workup ordered pending cultures UA concerning for UTI denies symptoms has leukocytosis continue rocephin VTE: lovenox Code: Full Dispo: SNF vs rehab PT/OT consulted
[2022-12-24] MEDS: GABAPENTIN 300 MG CAP PO SCH ×3 (09:01→20:45)
[2022-12-24] MEDS: CLOPIDOGREL 75 MG TABLET PO SCH (09:01)
[2022-12-24] MEDS: ASPIRIN 81 MG CHEWABLE TABLET PO SCH (09:02)
[2022-12-24] MEDS: ENOXAPARIN 40 MG/0.4 ML SQ SCH (09:02)
[2022-12-24] MEDS: NA CHLORIDE 0.9% 1,000 ML IV SCH (11:49)
[2022-12-24] MEDS: CEFTRIAXONE 1,000 MG in NA CHLORIDE 0.9% 50 ML IVPB SCH (11:50)
[2022-12-24] MEDS: FERROUS SULFATE 325 MG TAB PO SCH (11:51)
[2022-12-25] MEDS: NA CHLORIDE 0.9% 1,000 ML IV SCH ×2 (04:00→08:02)
[2022-12-25 04:17] LABS: Absolute Lymphocytes (CBC) 7.4 K/uL (0.7-4.9); Hematocrit 32.7 % (36.0-45.0); Lymphocytes % 54.9 % (15.3-44.8); MCV 94.6 fL (80-100); MPV 10.1 fL (7.6-11.3); RBC Red Blood Cell Count 3.46 M/uL (3.86-4.86)
[2022-12-25 04:30] LABS: Magnesium 2.1 mg/dL (1.6-2.4); Potassium 3.2 mmol/L (3.5-5.1)
--- NOTE | 2022-12-25 07:21 | P.PN ---
Date of Service: 12/25/22 Subjective feeling slightly better than yesterday BP improving no acute events overnight voiding without issue, no dysuria ROS: A complete review of systems was performed and is negative except as mentioned above Physical Exam Gen: Alert, Oriented x3 HEENT: normal conjunctiva, sclera anicteric Respiratory: non labored respirations, +cough; diminished at bases bilaterally Cardiovascular: Regular rate/rhythm, Normal S1 S2 Gastrointestinal: soft, nontender, nondistended Neurological: Normal affect, moves all extremities, generalized weakness vitals reviewed Problem List Acute CVA / TIA Sepsis secondary to UTI h/o prior CVA chronic COPD Exacerbation, new/undiagnosed Breast cancer on chemotherapy HTN DM2 Morbid obesity TIA aspirin,plavix, statin neuro consulted recommend eval for rehab patient brought up SNF/NH as well Patient would like to see if rehab an option workup ordered Cultures negative for any growth UA concerning for UTI denies symptoms has leukocytosis, downtrending continue rocephin Continue Antibiotics VTE: lovenox Code: Full Dispo: SNF vs rehab PT/OT consulted
[2022-12-25] MEDS: PANTOPRAZOLE 40MG TABLET PO SCH (07:31)
[2022-12-25] MEDS: ASPIRIN 81 MG CHEWABLE TABLET PO SCH (08:03)
[2022-12-25] MEDS: CEFTRIAXONE 1,000 MG in NA CHLORIDE 0.9% 50 ML IVPB SCH (08:03)
[2022-12-25] MEDS: ENOXAPARIN 40 MG/0.4 ML SQ SCH (08:03)
[2022-12-25] MEDS: FERROUS SULFATE 325 MG TAB PO SCH (08:03)
[2022-12-25] MEDS: GABAPENTIN 300 MG CAP PO SCH ×3 (08:03→21:39)
[2022-12-25] MEDS: CLOPIDOGREL 75 MG TABLET PO SCH (08:03)
[2022-12-25] MEDS: ATORVASTATIN 40 MG TAB PO SCH (21:39)
[2022-12-26] MEDS: NA CHLORIDE 0.9% 1,000 ML IV SCH (04:52)
[2022-12-26] MEDS: PANTOPRAZOLE 40MG TABLET PO SCH (06:17)
--- NOTE | 2022-12-26 07:01 | P.PN ---
Date of Service: 12/26/22 Subjective no acute events overnight voiding without issue, no dysuria ROS: A complete review of systems was performed and is negative except as mentioned above Physical Exam Gen: Alert, Oriented x3 HEENT: normal conjunctiva, sclera anicteric Respiratory: non labored respirations; diminished at bases bilaterally Cardiovascular: Regular rate/rhythm, Normal S1 S2 Gastrointestinal: soft, nontender, nondistended Neurological: Normal affect, moves all extremities, generalized weakness vitals reviewed Problem List Acute CVA / TIA Sepsis secondary to UTI h/o prior CVA chronic COPD Exacerbation, new/undiagnosed Breast cancer on chemotherapy HTN DM2 Morbid obesity TIA aspirin,plavix, statin neuro consulted recommend eval for rehab patient brought up SNF/NH as well Patient would like to see if rehab an option workup ordered Cultures negative for any growth UA concerning for UTI denies symptoms has leukocytosis, downtrending continue rocephin Continue Antibiotics ID consulted VTE: lovenox Code: Full Dispo: SNF vs rehab PT/OT consulted
[2022-12-26 09:03] LABS: Absolute Lymphocytes (CBC) 6.9 K/uL (0.7-4.9); Hematocrit 35.5 % (36.0-45.0); MCV 95.1 fL (80-100); MPV 9.7 fL (7.6-11.3); RBC Red Blood Cell Count 3.74 M/uL (3.86-4.86)
[2022-12-26 09:21] LABS: Potassium 3.3 mmol/L (3.5-5.1)
--- NOTE | 2022-12-26 10:01 | P.PN ---
Subjective Date of Service: 12/26/22 Chief Complaint: TIA, UTI. Patient is very pleasant and sitting in the chair with no signs having cardiopulmonary distress Physical Examination - Vital Signs Temperature: 97.2 F Blood Pressure: 142/65 Pulse: 78 Respirations: 18 Pulse Ox (%): 93 - Physical Exam General: Alert, In no apparent distress, Oriented x3 Respiratory: Clear to auscultation bilaterally Cardiovascular: No edema, Normal S1 S2 Gastrointestinal: Normal bowel sounds Musculoskeletal: No swelling, No tenderness Integumentary: No rashes, No breakdown Neurological: Normal speech, Normal tone, Sensation intact, Normal affect - Studies Microbiology 12/22/22 14:00 Clean Catch Urine [place] Count - Final <10,000 CFU/ML. 12/22/22 14:00 Clean Catch Urine - Final MIXED [place]. 12/22/22 17:40 Blood - Blood Aerobic Blood Culture - Preliminary No growth in 24 hours. 12/22/22 17:40 Blood - Blood Anaerobic Blood Culture - Final 12/22/22 16:00 Blood - Blood Aerobic Blood Culture - Preliminary No growth in 24 hours. 12/22/22 16:00 Blood - Blood Anaerobic Blood Culture - Final current medications Acetaminophen (Acetaminophen 500 Mg Tab) 500 mg PO Q4HP PRN PRN Reason: Pain scale 2-4 (Mild) Last Admin: 12/25/22 07:30 Dose: 500 mg Aspirin (Aspirin 81 Mg Chewable Tablet) 162 mg PO DAILY [facility] Last Admin: 12/25/22 08:03 Dose: 162 mg Atorvastatin Calcium (Atorvastatin 40 Mg Tab) 40 mg PO BEDTIME [facility] Last Admin: 12/25/22 21:39 Dose: 40 mg Clopidogrel Bisulfate (Clopidogrel 75 Mg Tablet) 75 mg PO DAILY [facility] Last Admin: 12/25/22 08:03 Dose: 75 mg Enoxaparin Sodium (Enoxaparin 40 Mg/0.4 Ml) 40 mg SQ DAILY [facility] Last Admin: 12/25/22 08:03 Dose: 40 mg Ferrous Sulfate (Ferrous Sulfate 325 Mg Tab) 325 mg PO DAILY [facility] Last Admin: 12/25/22 08:03 Dose: 325 mg Gabapentin (Gabapentin 300 Mg Cap) 300 mg PO TID [facility] Last Admin: 12/25/22 21:39 Dose: 300 mg Ceftriaxone Sodium 1,000 mg/ (Sodium Chloride) 50 mls @ 100 mls/hr IVPB DAILY [facility]; Protocol Stop: 12/27/22 11:00 Last Admin: 12/25/22 08:03 Dose: 50 mls Ondansetron HCl (Ondansetron 4 Mg/2 Ml Vial) 4 mg IV Q6HP PRN PRN Reason: NAUSEA / VOMITING Pantoprazole Sodium (Pantoprazole 40mg Tablet) 40 mg PO DAILYAC [facility]; Protocol Last Admin: 12/26/22 06:17 Dose: 40 mg Sodium Chloride (Flush Normal Saline 10 Ml) 10 ml IV BID [facility] Last Admin: 12/25/22 21:00 Dose: 10 ml Microbiology Data (last 24 hrs): 12/22/22 14:00 Clean Catch Urine [place] Count - Final <10,000 CFU/ML. 12/22/22 14:00 Clean Catch Urine - Final MIXED [place]. Assessment And Plan - Current Problems (Diagnosis) (1) Urinary tract infection Plan: Cultures: - 3/2 UC: Mixed orestes - 3/2 BC x 2: Negative Antibiotics: - Current on IV Ceftriaxone (12/22-12/27) Recommendations: - Agree with primary team for Empiric antibiotic therapy Ceftriaxone - Plan - UTI: Empiric antibiotic therapy - Severe protein calorie malnutrition - TIA - Hypertension - Diabetes type 2 - Hyperlipidemia ID will monitor the patient closely for signs of infection with fever and WBC trends Case has been discussed with Dr. Dean, N
[2022-12-26] MEDS: ASPIRIN 81 MG CHEWABLE TABLET PO SCH (10:21)
[2022-12-26] MEDS: CLOPIDOGREL 75 MG TABLET PO SCH (10:22)
[2022-12-26] MEDS: FERROUS SULFATE 325 MG TAB PO SCH (10:22)
[2022-12-26] MEDS: GABAPENTIN 300 MG CAP PO SCH ×3 (10:22→20:01)
[2022-12-26] MEDS: ENOXAPARIN 40 MG/0.4 ML SQ SCH (10:22)
[2022-12-26] MEDS: CEFTRIAXONE 1,000 MG in NA CHLORIDE 0.9% 50 ML IVPB SCH (10:22)
[2022-12-26] MEDS ORDERED: CEFTRIAXONE 1000 MG/VIAL ONE (10:24)
[2022-12-26] MEDS: ATORVASTATIN 40 MG TAB PO SCH (20:01)
[2022-12-27] MEDS: PANTOPRAZOLE 40MG TABLET PO SCH (05:41)
--- NOTE | 2022-12-27 08:54 | P.PN ---
Subjective Date of Service: 12/27/22 Chief Complaint: TIA, UTI. Patient is very pleasant and sitting at the edge of the bed with no signs having cardiopulmonary distress upon examination Physical Examination - Vital Signs Temperature: 97.4 F Blood Pressure: 112/59 Pulse: 72 Respirations: 16 Pulse Ox (%): 93 - Physical Exam General: Alert, In no apparent distress, Oriented x3 Respiratory: Normal air movement Cardiovascular: Normal S1 S2, Edema (+1 legs) Gastrointestinal: Normal bowel sounds Musculoskeletal: No erythema, Swelling (+1 legs) Integumentary: No rashes, No breakdown Neurological: Normal gait, Normal speech, Normal tone, Sensation intact, Normal affect - Studies active medications Acetaminophen (Acetaminophen 500 Mg Tab) 500 mg PO Q4HP PRN PRN Reason: Pain scale 2-4 (Mild) Last Admin: 12/25/22 07:30 Dose: 500 mg Aspirin (Aspirin 81 Mg Chewable Tablet) 162 mg PO DAILY [facility] Last Admin: 12/26/22 10:21 Dose: 162 mg Atorvastatin Calcium (Atorvastatin 40 Mg Tab) 40 mg PO BEDTIME [facility] Last Admin: 12/26/22 20:01 Dose: 40 mg Clopidogrel Bisulfate (Clopidogrel 75 Mg Tablet) 75 mg PO DAILY [facility] Last Admin: 12/26/22 10:22 Dose: 75 mg Enoxaparin Sodium (Enoxaparin 40 Mg/0.4 Ml) 40 mg SQ DAILY [facility] Last Admin: 12/26/22 10:22 Dose: 40 mg Ferrous Sulfate (Ferrous Sulfate 325 Mg Tab) 325 mg PO DAILY [facility] Last Admin: 12/26/22 10:22 Dose: 325 mg Gabapentin (Gabapentin 300 Mg Cap) 300 mg PO TID [facility] Last Admin: 12/26/22 20:01 Dose: 300 mg Ceftriaxone Sodium 1,000 mg/ (Sodium Chloride) 50 mls @ 100 mls/hr IVPB DAILY [facility]; Protocol Stop: 12/27/22 11:00 Last Admin: 12/26/22 10:22 Dose: 50 mls Ondansetron HCl (Ondansetron 4 Mg/2 Ml Vial) 4 mg IV Q6HP PRN PRN Reason: NAUSEA / VOMITING Pantoprazole Sodium (Pantoprazole 40mg Tablet) [address] [facility]; Protocol Last Admin: 12/27/22 05:41 Dose: 40 mg Sodium Chloride (Flush Normal Saline 10 Ml) 10 ml IV BID [facility] Last Admin: 12/26/22 20:02 Dose: 10 ml Microbiology Data (last 24 hrs): Microbiology 12/22/22 14:00 Clean Catch Urine [place] Count - Final <10,000 CFU/ML. 12/22/22 14:00 Clean Catch Urine - Final MIXED [place]. 12/22/22 17:40 Blood - Blood Aerobic Blood Culture - Preliminary No growth in 24 hours. 12/22/22 17:40 Blood - Blood Anaerobic Blood Culture - Final 12/22/22 16:00 Blood - Blood Aerobic Blood Culture - Preliminary No growth in 24 hours. 12/22/22 16:00 Blood - Blood Anaerobic Blood Culture - Final Assessment And Plan - Current Problems (Diagnosis) (1) Urinary tract infection Plan: Cultures: - 3/2 UC: Mixed orestes - / BC x 2: Negative Antibiotics: - Current on IV Ceftriaxone (12/22-12/27) Recommendations: - Agree with primary team for Empiric antibiotic therapy Ceftriaxone - Plan - UTI: Empiric antibiotic therapy - Severe protein calorie malnutrition - TIA - Hypertension - Diabetes type 2 - Hyperlipidemia ID will monitor the patient closely for signs of infection with fever and WBC trends Case has been discussed with Dr. Dean, N
[2022-12-27] MEDS: FERROUS SULFATE 325 MG TAB PO SCH (09:01)
[2022-12-27] MEDS: ASPIRIN 81 MG CHEWABLE TABLET PO SCH (09:01)
[2022-12-27] MEDS: CLOPIDOGREL 75 MG TABLET PO SCH (09:01)
[2022-12-27] MEDS: ENOXAPARIN 40 MG/0.4 ML SQ SCH (09:01)
[2022-12-27] MEDS: CEFTRIAXONE 1,000 MG in NA CHLORIDE 0.9% 50 ML IVPB SCH (09:01)
[2022-12-27] MEDS: GABAPENTIN 300 MG CAP PO SCH ×3 (09:04→20:55)
--- NOTE | 2022-12-27 17:35 | P.PN ---
Subjective Date of Service: 12/27/22 Chief Complaint: TIA, UTI. Patient has no new complaint today. She feels she is at baseline. She was seen sitting up in a chair. Physical Examination - Vital Signs Temperature: 97.4 F Blood Pressure: 106/57 Pulse: 79 Respirations: 19 Pulse Ox (%): 95 - Studies Microbiology Data (last 24 hrs): 12/22/22 16:00 Blood - Blood Aerobic Blood Culture - Final No growth in 5 days. 12/22/22 16:00 Blood - Blood Anaerobic Blood Culture - Final Assessment And Plan - Plan Physical Exam Gen: Alert, Oriented x3 Respiratory: non labored respirations; clear to auscultation bilaterally Cardiovascular: Regular rate/rhythm, Normal S1 S2 Gastrointestinal: soft, nontender, nondistended Neurological: Normal affect, moves all extremities, generalized weakness vitals reviewed Problem List Acute CVA / TIA Sepsis secondary to UTI h/o prior CVA chronic COPD Exacerbation, new/undiagnosed Breast cancer on chemotherapy HTN DM2 Morbid obesity Plan: TIA Continue aspirin,plavix, statin neuro consulted recommend eval for rehab patient brought up SNF/long-term care as well. Awaiting insurance authorization for acute rehab. UA suggested UTI. Urine culture grew mixed orestes. Patient completed IV Rocephin for UTI per infectious disease recommendation. She had marked leukocytosis which has trended down and almost resolved Continue PT. VTE: lovenox Code: Full Dispo: SNF vs rehab
[2022-12-27] MEDS: ATORVASTATIN 40 MG TAB PO SCH (20:55)
[2022-12-28 06:45] LABS: Absolute Lymphocytes (CBC) 8.6 K/uL (0.7-4.9); Hematocrit 36.6 % (36.0-45.0); Lymphocytes % 57.2 % (15.3-44.8); MCV 95.3 fL (80-100); MPV 9.4 fL (7.6-11.3); RBC Red Blood Cell Count 3.84 M/uL (3.86-4.86)
[2022-12-28 07:05] LABS: Potassium 3.3 mmol/L (3.5-5.1)
[2022-12-28] MEDS: PANTOPRAZOLE 40MG TABLET PO SCH (07:26)
[2022-12-28] MEDS: FERROUS SULFATE 325 MG TAB PO SCH (08:40)
[2022-12-28] MEDS: ASPIRIN 81 MG CHEWABLE TABLET PO SCH (08:40)
[2022-12-28] MEDS: GABAPENTIN 300 MG CAP PO SCH ×3 (08:41→20:50)
[2022-12-28] MEDS: ENOXAPARIN 40 MG/0.4 ML SQ SCH (08:41)
[2022-12-28] MEDS: CLOPIDOGREL 75 MG TABLET PO SCH (08:41)
--- NOTE | 2022-12-28 08:45 | P.PN ---
Subjective Date of Service: 12/28/22 Chief Complaint: TIA, UTI. Patient is very pleasant and sitting at the edge of the bed with no signs of having cardiopulmonary distress upon examination Physical Examination - Vital Signs Temperature: 97.5 F Blood Pressure: 99/54 Pulse: 69 Respirations: 15 Pulse Ox (%): 92 - Studies active medications Acetaminophen (Acetaminophen 500 Mg Tab) 500 mg PO Q4HP PRN PRN Reason: Pain scale 2-4 (Mild) Last Admin: 12/25/22 07:30 Dose: 500 mg Aspirin (Aspirin 81 Mg Chewable Tablet) 162 mg PO DAILY [facility] Last Admin: 12/28/22 08:40 Dose: 162 mg Atorvastatin Calcium (Atorvastatin 40 Mg Tab) 40 mg PO BEDTIME [facility] Last Admin: 12/27/22 20:55 Dose: 40 mg Clopidogrel Bisulfate (Clopidogrel 75 Mg Tablet) 75 mg PO DAILY [facility] Last Admin: 12/28/22 08:41 Dose: 75 mg Enoxaparin Sodium (Enoxaparin 40 Mg/0.4 Ml) 40 mg SQ DAILY [facility] Last Admin: 12/28/22 08:41 Dose: 40 mg Ferrous Sulfate (Ferrous Sulfate 325 Mg Tab) 325 mg PO DAILY [facility] Last Admin: 12/28/22 08:40 Dose: 325 mg Gabapentin (Gabapentin 300 Mg Cap) 300 mg PO TID [facility] Last Admin: 12/28/22 08:41 Dose: 300 mg Ondansetron HCl (Ondansetron 4 Mg/2 Ml Vial) 4 mg IV Q6HP PRN PRN Reason: NAUSEA / VOMITING Pantoprazole Sodium (Pantoprazole 40mg Tablet) [facility] Protocol Last Admin: 12/28/22 07:26 Dose: 40 mg Sodium Chloride (Flush Normal Saline 10 Ml) 10 ml IV BID [facility] Last Admin: 12/28/22 08:41 Dose: 10 ml Microbiology Data (last 24 hrs): 12/22/22 17:40 Blood - Blood Aerobic Blood Culture - Final No growth in 5 days. 12/22/22 17:40 Blood - Blood Anaerobic Blood Culture - Final 12/22/22 16:00 Blood - Blood Aerobic Blood Culture - Final No growth in 5 days. 12/22/22 16:00 Blood - Blood Anaerobic Blood Culture - Final Assessment And Plan - Current Problems (Diagnosis) (1) Urinary tract infection Plan: Cultures: - 3/2 UC: Mixed orestes - 3/2 BC x 2: Negative Antibiotics: - Current on IV Ceftriaxone (12/22-12/27) Recommendations: - Agree with primary team for Empiric antibiotic therapy Ceftriaxone, abx completed Patient's WBC and PLT are elevated most likely due to hx of splenectomy. Patient is asymptomatic and afrible - Plan - UTI: Empiric antibiotic therapy, abx completed - Severe protein calorie malnutrition - TIA - Hypertension - Diabetes type 2 - Hyperlipidemia - NIDDM - Tobacco abuse - CVAs - Breast Cancer - Bilateral mastectomy - Appendectomy - Splenectomy ID will monitor the patient closely for signs of infection with fever and WBC trends Case has been discussed with Dr. Dean, N
--- NOTE | 2022-12-28 17:52 | P.PN ---
Subjective Date of Service: 12/28/22 Chief Complaint: TIA, UTI. Patient has no new complaint today. No issues overnight. Physical Examination - Vital Signs Temperature: 97.1 F Blood Pressure: 138/73 Pulse: 81 Respirations: 16 Pulse Ox (%): 93 - Studies Microbiology Data (last 24 hrs): 12/22/22 17:40 Blood - Blood Aerobic Blood Culture - Final No growth in 5 days. 12/22/22 17:40 Blood - Blood Anaerobic Blood Culture - Final 12/22/22 16:00 Blood - Blood Aerobic Blood Culture - Final No growth in 5 days. 12/22/22 16:00 Blood - Blood Anaerobic Blood Culture - Final Assessment And Plan - Plan Physical Exam Gen: Alert, Oriented x3 Respiratory: non labored respirations; clear to auscultation bilaterally Cardiovascular: Regular rate/rhythm, Normal S1 S2 Gastrointestinal: soft, nontender, nondistended Neurological: Normal affect, moves all extremities, generalized weakness vitals reviewed Diagnosis Acute CVA / TIA Sepsis secondary to UTI h/o prior CVA chronic COPD Exacerbation, new/undiagnosed Breast cancer on chemotherapy HTN DM2 Morbid obesity Plan: TIA Continue aspirin,plavix, statin patient brought up SNF/long-term care as well. Insurance denied acute rehab. Decision is being appealed. UTI UA suggested UTI. Urine culture grew mixed orestes. Patient completed IV Rocephin for UTI per infectious disease recommendation. She had marked leukocytosis which has trended down. Continue PT. Activity as tolerated VTE: lovenox Code: Full Dispo: SNF vs rehab
[2022-12-28] MEDS: ATORVASTATIN 40 MG TAB PO SCH (20:50)
[2022-12-29 05:39] LABS: Absolute Lymphocytes (CBC) 8.7 K/uL (0.7-4.9); Hematocrit 32.6 % (36.0-45.0); Lymphocytes % 50.9 % (15.3-44.8); MCV 94.4 fL (80-100); MPV 9.5 fL (7.6-11.3); RBC Red Blood Cell Count 3.45 M/uL (3.86-4.86)
[2022-12-29] MEDS: PANTOPRAZOLE 40MG TABLET PO SCH (06:38)
--- NOTE | 2022-12-29 09:08 | P.PN ---
Subjective Date of Service: 12/29/22 Chief Complaint: TIA, UTI. Patient is in the shower with the help of CLIENT SOLUTIONS MANAGER. No major event upon examination Physical Examination - Vital Signs Temperature: 98.1 F Blood Pressure: 132/71 Pulse: 72 Respirations: 16 Pulse Ox (%): 94 - Physical Exam General: Alert, In no apparent distress, Oriented x3 Respiratory: Normal air movement Cardiovascular: Normal S1 S2, Edema (+1 legs) Gastrointestinal: Normal bowel sounds Musculoskeletal: No swelling, No tenderness, Swelling (+1 legs) Integumentary: Tenderness/swelling (+1 leg edema) Neurological: Normal speech, Normal tone, Sensation intact, Normal affect - Studies active medications Acetaminophen (Acetaminophen 500 Mg Tab) 500 mg PO Q4HP PRN PRN Reason: Pain scale 2-4 (Mild) Last Admin: 12/25/22 07:30 Dose: 500 mg Aspirin (Aspirin 81 Mg Chewable Tablet) 162 mg PO DAILY [facility] Last Admin: 12/28/22 08:40 Dose: 162 mg Atorvastatin Calcium (Atorvastatin 40 Mg Tab) 40 mg PO BEDTIME [facility] Last Admin: 12/28/22 20:50 Dose: 40 mg Clopidogrel Bisulfate (Clopidogrel 75 Mg Tablet) 75 mg PO DAILY [facility] Last Admin: 12/28/22 08:41 Dose: 75 mg Enoxaparin Sodium (Enoxaparin 40 Mg/0.4 Ml) 40 mg SQ DAILY [facility] Last Admin: 12/28/22 08:41 Dose: 40 mg Ferrous Sulfate (Ferrous Sulfate 325 Mg Tab) 325 mg PO DAILY [facility] Last Admin: 12/28/22 08:40 Dose: 325 mg Gabapentin (Gabapentin 300 Mg Cap) 300 mg PO TID [facility] Last Admin: 12/28/22 20:50 Dose: 300 mg Ondansetron HCl (Ondansetron 4 Mg/2 Ml Vial) 4 mg IV Q6HP PRN PRN Reason: NAUSEA / VOMITING Pantoprazole Sodium ([facility]t) [facility] Last Admin: 12/29/22 06:38 Dose: 40 mg Sodium Chloride (Flush Normal Saline 10 Ml) 10 ml IV BID [facility] Last Admin: 12/28/22 20:51 Dose: 10 ml Microbiology Data (last 24 hrs): Microbiology 12/22/22 17:40 Blood - Blood Aerobic Blood Culture - Final No growth in 5 days. 12/22/22 17:40 Blood - Blood Anaerobic Blood Culture - Final 12/22/22 16:00 Blood - Blood Aerobic Blood Culture - Final No growth in 5 days. 12/22/22 16:00 Blood - Blood Anaerobic Blood Culture - Final 12/22/22 14:00 Clean Catch Urine [place] Count - Final <10,000 CFU/ML. 12/22/22 14:00 Clean Catch Urine - Final MIXED ORESTES. Assessment And Plan - Current Problems (Diagnosis) (1) Urinary tract infection Plan: Cultures: - 3/2 UC: Mixed orestes - 3/ BC x 2: Negative Antibiotics: - Current on IV Ceftriaxone (12/22-12/27) Recommendations: - Agree with primary team for Empiric antibiotic therapy Ceftriaxone, abx completed Patient's WBC and PLT are elevated most likely due to hx of splenectomy. Patient is asymptomatic and afrible - Plan - UTI: Empiric antibiotic therapy, abx completed - Severe protein calorie malnutrition - TIA - Hypertension - Diabetes type 2 - Hyperlipidemia - NIDDM - Tobacco abuse - CVAs - Breast Cancer - Bilateral mastectomy - Appendectomy - Splenectomy ID will monitor the patient closely for signs of infection with fever and WBC trends Case has been discussed with Dr. Dean, N
[2022-12-29] MEDS: CLOPIDOGREL 75 MG TABLET PO SCH (09:30)
[2022-12-29] MEDS: FERROUS SULFATE 325 MG TAB PO SCH (09:30)
[2022-12-29] MEDS: ASPIRIN 81 MG CHEWABLE TABLET PO SCH (09:30)
[2022-12-29] MEDS: GABAPENTIN 300 MG CAP PO SCH ×3 (09:30→20:26)
[2022-12-29] MEDS: ENOXAPARIN 40 MG/0.4 ML SQ SCH (09:31)
[2022-12-29] MEDS: ANASTROZOLE 1 MG TAB PO SCH (18:00)
--- NOTE | 2022-12-29 18:00 | P.PN ---
Subjective Date of Service: 12/29/22 Chief Complaint: TIA, UTI. No new complaint. Patient reported altered taste in the mouth. Physical Examination - Vital Signs Temperature: 97.0 F Blood Pressure: 98/62 Pulse: 86 Respirations: 16 Pulse Ox (%): 96 Assessment And Plan - Plan Physical Exam Gen: Alert, Oriented x3 Respiratory: clear to auscultation bilaterally Cardiovascular: Regular rate/rhythm, Normal S1 S2 Gastrointestinal: soft, nontender, nondistended Neurological: Normal affect, moves all extremities, generalized weakness vitals reviewed Diagnosis Acute CVA / TIA Sepsis secondary to UTI h/o prior CVA chronic COPD Exacerbation, new/undiagnosed Breast cancer on chemotherapy HTN DM2 Morbid obesity Plan: TIA Stable Continue aspirin,plavix, statin Insurance denied acute rehab. Decision is being appealed. Social service also evaluating for skilled rehab placement. UTI UA suggested UTI. Urine culture grew mixed orestes. Patient completed IV Rocephin for UTI per infectious disease recommendation. She had marked leukocytosis which improved. Leukocytosis is now trending up slowly. Monitor for fever Continue PT. Activity as tolerated VTE: lovenox Code: Full Dispo: SNF vs rehab
[2022-12-29] MEDS: ATORVASTATIN 40 MG TAB PO SCH (20:26)
[2022-12-30 05:02] LABS: Absolute Lymphocytes (CBC) 9.3 K/uL (0.7-4.9); Hematocrit 33.6 % (36.0-45.0); Lymphocytes % 55.2 % (15.3-44.8); MCV 95.8 fL (80-100); MPV 9.6 fL (7.6-11.3); RBC Red Blood Cell Count 3.51 M/uL (3.86-4.86)
[2022-12-30] MEDS: PANTOPRAZOLE 40MG TABLET PO SCH (07:03)
[2022-12-30] MEDS: ENOXAPARIN 40 MG/0.4 ML SQ SCH (08:35)
[2022-12-30] MEDS: ASPIRIN 81 MG CHEWABLE TABLET PO SCH (08:35)
[2022-12-30] MEDS: CLOPIDOGREL 75 MG TABLET PO SCH (08:36)
[2022-12-30] MEDS: FERROUS SULFATE 325 MG TAB PO SCH (08:36)
[2022-12-30] MEDS: ANASTROZOLE 1 MG TAB PO SCH (08:36)
[2022-12-30] MEDS: GABAPENTIN 300 MG CAP PO SCH ×3 (08:36→20:17)
--- NOTE | 2022-12-30 16:57 | P.PN ---
Subjective Date of Service: 12/30/22 Chief Complaint: TIA, UTI. Patient has no new complaint apart from altered taste in the mouth. Physical Examination - Vital Signs Temperature: 97.4 F Blood Pressure: 124/65 Pulse: 85 Respirations: 18 Pulse Ox (%): 98 Assessment And Plan - Plan Physical Exam Gen: Alert, Oriented x3 Respiratory: clear to auscultation bilaterally Cardiovascular: Regular rate/rhythm, Normal S1 S2 Gastrointestinal: soft, nontender, nondistended Neurological: Normal affect, moves all extremities, generalized weakness vitals reviewed Diagnosis Acute CVA / TIA Sepsis secondary to UTI h/o prior CVA chronic COPD Exacerbation, new/undiagnosed Breast cancer on chemotherapy HTN DM2 Morbid obesity Anorexia/Dysguesia Plan: TIA Stable Continue aspirin,plavix, statin Insurance approved for acute rehab. Clinically stable for transfer to acute rehab. UTI UA suggested UTI. Urine culture grew mixed orestes. Patient completed IV Rocephin for UTI per infectious disease recommendation. She had marked leukocytosis which improved. Leukocytosis is now trending up slowly. Monitor for fever Continue PT. Activity as tolerated Anorexia/Dysguesia Trial of zinc tablet. Sodium bicarb solution mouth rinse before meals. VTE: lovenox Code: Full Dispo: Acute rehab.
[2022-12-30] MEDS: ATORVASTATIN 40 MG TAB PO SCH (20:17)
[2022-12-31 00:50] VITALS: O2SAT 92
[2022-12-31 04:46] LABS: Absolute Lymphocytes (CBC) 8.9 K/uL (0.7-4.9); Hematocrit 33.7 % (36.0-45.0); Lymphocytes % 51.7 % (15.3-44.8); MCV 95.7 fL (80-100); MPV 9.3 fL (7.6-11.3); RBC Red Blood Cell Count 3.52 M/uL (3.86-4.86)
[2022-12-31 05:05] LABS: Potassium 3.4 mmol/L (3.5-5.1)
[2022-12-31] MEDS: PANTOPRAZOLE 40MG TABLET PO SCH (07:29)
[2022-12-31 08:19] VITALS: BP 133/60; TEMP 97.6
[2022-12-31] MEDS: GABAPENTIN 300 MG CAP PO SCH (08:41)
[2022-12-31] MEDS: ASPIRIN 81 MG CHEWABLE TABLET PO SCH (08:41)
[2022-12-31] MEDS: FERROUS SULFATE 325 MG TAB PO SCH (08:41)
[2022-12-31] MEDS: CLOPIDOGREL 75 MG TABLET PO SCH (08:41)
[2022-12-31] MEDS: ANASTROZOLE 1 MG TAB PO SCH (08:41)
[2022-12-31] MEDS: ENOXAPARIN 40 MG/0.4 ML SQ SCH (08:42)
[2022-12-31] MEDS ORDERED: ZINC SULFATE 220 MG CAP PO SCH (09:00)
--- NOTE | 2022-12-31 11:48 | P.DS ---
Admission Date: 12/24/22 Discharge Date: 12/31/22 Disposition: TRANSFER TO INPATIENT REHAB Reason for Admission: TIA, UTI. Brief History of Present Illness: 67-year-old female patient with medical history significant for hypertension, hyperlipidemia, type 2 diabetes and obesity who recently had a CVA episode and was in rehab began feeling numb in the right side of the lower extremity. She reported that when she had a stroke in October 2022, she had left-sided weakness and while she was receiving therapy she began to feel numb and on the right side. No overt fall, fever, chills, rigor, nausea, vomiting, diarrhea episode prior to encounter. He was admitted for inpatient care and for TIA rule out. Her UA was very concerning for UTI and she also had leukocytosis of 21k. Hospital Course: Diagnosis Acute CVA / TIA Sepsis secondary to UTI h/o prior CVA chronic COPD Exacerbation, new/undiagnosed Breast cancer on chemotherapy HTN DM2 Morbid obesity Anorexia/Dysguesia Hospital course TIA/CVA MRI showed 4.7 centimeter late subacute infarction right parietal lobe. Laminar cortical necrosis is present. Patient seen in consultation by neurology Dr. Deng. Continued aspirin,plavix, statin. Seen by PT and inpatient rehab recommended. Insurance approved for acute rehab. Clinically stable for transfer to acute rehab. UTI UA suggested UTI. Urine culture grew mixed orestes. Patient completed IV Rocephin for UTI per infectious disease recommendation. She had marked leukocytosis which improved. She had no fever and was feeling at baseline. Anorexia/Dysguesia Cancer and chemotherapy related. Trial of zinc tablet. Sodium bicarb solution mouth rinse before meals if available. Advance diet as tolerated. Vital Signs/Physical Exam: Temp Pulse Resp BP Pulse Ox 97.6 F 78 16 133/60 93 12/31/22 08:00 12/31/22 08:00 12/31/22 08:00 12/31/22 08:00 12/31/22 08:00 General: Alert, In no apparent distress, Oriented x3 HEENT: Mucous membr. moist/pink Respiratory: Clear to auscultation bilaterally, Normal air movement Cardiovascular: No edema, Regular rate/rhythm, Normal S1 S2 Gastrointestinal: Normal bowel sounds, Soft and benign, Non-distended Musculoskeletal: No swelling Integumentary: No rashes, No cyanosis Neurological: Normal strength at 5/5 x4 extr Laboratory Data at Discharge: WBC 17.30 K/uL (4.3-10.9) H 12/31/22 04:31 Hgb 10.9 g/dL (12.0-15.0) L 12/31/22 04:31 Hct 33.7 % (36.0-45.0) L 12/31/22 04:31 Plt Count 551 K/uL (152-406) H 12/31/22 04:31 PT 13.8 SECONDS (9.5-12.5) H 12/22/22 13:00 INR 1.25 12/22/22 13:00 APTT 33.1 SECONDS (24.3-36.9) 12/22/22 13:00 Sodium 141 mmol/L (136-145) 12/31/22 04:31 Potassium 3.4 mmol/L (3.5-5.1) L 12/31/22 04:31 BUN 13 mg/dL (7-18) 12/31/22 04:31 Creatinine 0.45 mg/dL (0.55-1.02) L 12/31/22 04:31 Glucose 133 mg/dL (74-106) H 12/31/22 04:31 Magnesium 2.1 mg/dL (1.6-2.4) 12/25/22 03:55 Total Bilirubin 0.4 mg/dL (0.2-1.0) 12/24/22 03:32 AST 23 U/L (15-37) 12/24/22 03:32 ALT 16 U/L (13-56) 12/24/22 03:32 Alkaline Phosphatase 93 U/L (45-117) 12/24/22 03:32 Triglycerides 66 mg/dL (<150) 12/23/22 03:59 Cholesterol 80 mg/dL (<200) 12/23/22 03:59 HDL Cholesterol 35 mg/dL (40-60) L 12/23/22 03:59 Cholesterol/HDL Ratio 2.29 12/23/22 03:59 Home Medications: Atorvastatin Calcium [Lipitor] 40 mg PO BEDTIME #30 tab 07/21/21 Clopidogrel Bisulfate [Plavix*] 75 mg PO DAILY #30 tablet 07/21/21 Aspirin 81 mg PO DAILY #30 tab.chew 05/13/22 Magnesium Oxide 400 mg PO BID 06/14/22 Gabapentin 300 mg PO BID 11/03/22 Pantoprazole Sodium 40 mg PO DAILY 11/03/22 Acetaminophen with Codeine [Acetaminophen-Cod #3 Tablet] 300 mg PO Q4HR 12/23/22 Anastrozole 1 mg PO DAILY 12/23/22 Metformin ER [Glucophage ER*] 500 mg PO BID 12/23/22 Diet: AHA Followup: Kurt Deng MD [ASSOCIATE-ACTIVE - CAN ADMIT] - Raphael Valladares MD [Primary Care Provider] - Time spent managing pt's care (in minutes): 38
== END 2022-12-31 10:35 | DRG 64 ==
LOC: ER 12:19 → ERHOLD 14:59 → 4TH 20:02 → OBSVTOIN 12-24 14:09
PROVIDERS: ADMIT Internal Medicine Nephrology; ATTEND Internal Medicine
DX: I63.9 Cerebral infarction, unspecified (principal); A41.9 Sepsis, unspecified organism; E43 Unspecified severe protein-calorie malnutrition; N39.0 Urinary tract infection, site not specified; J44.1 Chronic obstructive pulmonary disease with (acute) exacerbation; I69.354 Hemiplegia and hemiparesis following cerebral infarction affecting left non-dominant side; G81.91 Hemiplegia, unspecified affecting right dominant side; I10 Essential (primary) hypertension; E78.5 Hyperlipidemia, unspecified; E04.1 Nontoxic single thyroid nodule; E11.42 Type 2 diabetes mellitus with diabetic polyneuropathy; C50.919 Malignant neoplasm of unspecified site of unspecified female breast; E66.01 Morbid (severe) obesity due to excess calories; R29.700 NIHSS score 0; Z85.3 Personal history of malignant neoplasm of breast; Z68.37 Body mass index [BMI] 37.0-37.9, adult; Z79.82 Long term (current) use of aspirin; Z90.49 Acquired absence of other specified parts of digestive tract; Z90.81 Acquired absence of spleen; Z79.02 Long term (current) use of antithrombotics/antiplatelets; Z90.13 Acquired absence of bilateral breasts and nipples; Z79.84 Long term (current) use of oral hypoglycemic drugs; Z79.52 Long term (current) use of systemic steroids; Z79.899 Other long term (current) drug therapy; Z87.891 Personal history of nicotine dependence; Z91.018 Allergy to other foods; Z20.822 Contact with and (suspected) exposure to COVID-19
CPT/HCPCS: 36415; 70450; 70496; 70498; 70551; 71045; 80048; 80053; 80061; 81001; 81003; 81015; 82565; 82947; 83735; 84145; 84484; 85025; 85610; 85730; 87040; 87086; 87088; 87811; 96365; 97110; 97112; 97116; 97161; 97530; 99285; G0378; J1650; J7030; Q9967; U0003

== ENCOUNTER 2022-12-27 09:32 | Inpatient (IN) | payer OTHER ==
--- OUTSIDE RECORDS SUMMARY | 2022-12-31 11:05 | XMS REPORT | Continuity of Care Document ---
:1955 Author Organization [facility] t Address [address] [facility] [place] [address] Care Team Providers Name Role Phone Stephania Sorenson Anavella Attending Clinician Unava ilJENNIFER Mays Attending Clinician Unavailable Adrian Sorenson Anav Admitting Clinician Unavailable Payers Payer Name Policy Type Policy Number Effective Date Expiration Date S ericka WM W [id number] Problems This patient has no known problems. Allergies, Adverse Reactions, Alerts Allergy Allergy Status Severity Reaction(s) Onset Inactive Treating Comm ents Source Name Type Date Date Clinician NKMian Allergy Active ENCCLR 2-14 11:13: 06 Social History Social Habit Start Date Stop Date Quantity Comments Source Sex Assigned At [birth year] [facility] 00:00:00 00:00:00 MD Corley [facility] Medications This patient has no known medications. Procedures This patient has no known procedures. Encounters Start End Encounter Admission Attending Care Care Encounter Source Date/Time Date/Time Type Type Clinicians Facility Department ID 2022-11-16 Outpatient 3 [facility] ENCPL CVA [id number] [facility] 11:41:[address] [facility] [place] 2022-11-14 Outpatient 3 [facility] ENCPL CVA [id number] [facility] 10:22:[address] [facility] [place] 2022-11-08 Outpatient 3 [facility] ENCPL CVA [id number] [facility] 10:26:46 janet, 0117 [facility] [place] d 2022-12-06 2022-12-06 Outpatient READMISSIO MAINE ENCCLR ENCCLR [id number] ENCCLR 00:00:00 00:00:00 JENNIFER MAIN 2022-11-17 2022-12-03 Inpatient 3 [facility] ENCPL CVA [id number] [facility] 16:35:00 14:20:00 janet, 0126 [facility] Tatyana mseser 2022-06-14 2022-06-14 Travel 1.2.840.1 [id number] [facility] 00:00:00 00:00:00 [id number] 350.1.13.41 ity of 3.412.2.7 2.[place].7.3.698 [place] .[id number] 084.8 MD Ta [facility] 2022-06-14 2022-06-14 Travel 1.2.840.1 [id number] [facility] 00:00:00 00:00:00 [id number] 350.1.13.41 ity of 3.412.2.7 2.2.7.3.698 [place] .[id number] 084.8 MD Ta [facility] 2022-06-02 2022-06-02 Travel 1.2.840.1 [id number] [facility] 00:00:00 00:00:00 12057.1.1 350.1.13.41 ity of 3.412.2.7 2.2.7.3.698 [place] .[id number] 084.8 MD Ta [facility] 2022-06-02 2022-06-02 Travel 1.2.840.1 [id number] [facility] 00:00:00 00:00:00 [id number] 350.1.13.41 ity of 3.412.2.7 2.2.7.3.698 [place] .[id number] 084.8 .8 [facility] Results This patient has no known results.
--- OUTSIDE RECORDS SUMMARY | 2022-12-31 11:05 | XMS REPORT | Clinical Summary ---
:1955 Author Organization [facility] MD [facility] Address [address] [place] [address] Care Team Providers Name Role Phone Unavailable Primary Care Provider Unavailable Allergies Not on File Medications Not on file Active Problems Not on file Encounters Date Type Specialty Care Team Description 06/14/2022 Travel 06/02/2022 Travel after 12/31/2021 Social History Tobacco Use Types Packs/Day Years Used Date Smoking Tobacco: Never Assessed Sex Assigned at Date Recorded Not on file Job Start Date Occupation Industry Not on file Not on file Not on file Last Filed Vital Signs Not on file Plan of Treatment Not on file Results Not on fileafter 12/31/2021 Insurance Payer Benefit Plan / Subscriber ID Effective Dates Phone Addre ss Type Group HUMANA HUMANA GOLD [id number] 2021-[place] [address] Medicare MEDICARE PLUS MEDICARE [facility] [phone]
[2022-12-31] MEDS ORDERED: ONDANSETRON 4 MG (ODT) TAB PO PRN (11:39)
[2022-12-31] MEDS ORDERED: CODEINE 30MG/APAP 300MG TAB PO PRN (11:40)
[2022-12-31 14:02] LABS: Specific Gravity 1.009 (1.005-1.030); Urine Bacteria <20 /HPF (<20); Urine Bilirubin NEGATIVE (Negative); Urine Blood Negative (Negative); Urine Clarity Clear (Clear); Urine Color Light-Yellow (Yellow); Urine Glucose NEGATIVE (Negative); Urine Protein NEGATIVE (Negative); Urine RBC <5 /HPF (None Seen); Urine Urobilinogen Normal (Normal); Urine pH 6.5 (5.0-7.0)
[2022-12-31] MEDS ORDERED: GLUCAGON 1 MG/VIAL IM PRN (16:00)
[2022-12-31] MEDS ORDERED: D50W 25 GM/50 ML SYRINGE IV PRN (16:00)
[2022-12-31] MEDS ORDERED: D10W 125 ML IV PRN (16:07)
[2022-12-31] MEDS: INSULIN -REGULAR HUMAN 50 UNIT/0.5 ML ML SQ SCH ×2 (16:30→20:19)
[2022-12-31 16:56] VITALS: BMI 36.8
[2022-12-31] MEDS: METFORMIN ER 500 MG TAB PO SCH (16:57)
[2022-12-31] MEDS: ATORVASTATIN 40 MG TAB PO SCH (19:42)
[2022-12-31] MEDS: DOCUSATE NA/SENNA CONC 1 TAB PO PRN (19:42)
[2022-12-31] MEDS: GABAPENTIN 300 MG CAP PO SCH (19:42)
[2022-12-31] MEDS: MAGNESIUM OXIDE 400 MG TAB PO SCH (19:42)
[2023-01-01 06:48] LABS: Absolute Lymphocytes (CBC) 8.9 K/uL (0.7-4.9); Hematocrit 34.5 % (36.0-45.0); Lymphocytes % 59.3 % (15.3-44.8); MCV 95.7 fL (80-100); MPV 9.4 fL (7.6-11.3); RBC Red Blood Cell Count 3.61 M/uL (3.86-4.86)
[2023-01-01 06:57] LABS: Albumin 2.3 g/dL (3.4-5.0); Magnesium 2.2 mg/dL (1.6-2.4); Potassium 3.8 mmol/L (3.5-5.1); Prealbumin 15.9 mg/dL (20-40)
[2023-01-01] MEDS: INSULIN -REGULAR HUMAN 50 UNIT/0.5 ML ML SQ SCH ×4 (07:27→20:10)
[2023-01-01] MEDS: PANTOPRAZOLE 40MG TABLET PO SCH (07:29)
[2023-01-01] MEDS ORDERED: ANASTROZOLE 1 MG TAB PO SCH (08:00)
[2023-01-01] MEDS: GLIMEPIRIDE 2 MG TABLET PO SCH ×2 (08:00→12:23)
[2023-01-01] MEDS: ASPIRIN 81 MG CHEWABLE TABLET PO SCH (08:21)
[2023-01-01] MEDS: CLOPIDOGREL 75 MG TABLET PO SCH (08:23)
[2023-01-01] MEDS: GABAPENTIN 300 MG CAP PO SCH ×2 (08:23→20:10)
[2023-01-01] MEDS: MAGNESIUM OXIDE 400 MG TAB PO SCH ×2 (08:23→20:10)
[2023-01-01] MEDS: ZINC SULFATE 220 MG CAP PO SCH (08:23)
[2023-01-01] MEDS: FERROUS SULFATE 325 MG TAB PO SCH (08:24)
[2023-01-01 08:30] LABS: Blood Morphology Comment NOT SEEN (NOT SEEN); Platelet Estimate ADEQ; White Blood Cell Scan OK (OK)
[2023-01-01] MEDS: METFORMIN ER 500 MG TAB PO SCH ×2 (09:26→17:16)
[2023-01-01] MEDS: ANASTROZOLE 1 MG TABLET PO SCH (09:28)
[2023-01-01] MEDS: ENOXAPARIN 40 MG/0.4 ML SQ SCH (16:18)
[2023-01-01] MEDS: ATORVASTATIN 40 MG TAB PO SCH (20:10)
[2023-01-02 05:32] LABS: Absolute Lymphocytes (CBC) 9.6 K/uL (0.7-4.9); Hematocrit 34.4 % (36.0-45.0); Lymphocytes % 55.3 % (15.3-44.8); MCV 96.1 fL (80-100); MPV 9.4 fL (7.6-11.3); RBC Red Blood Cell Count 3.58 M/uL (3.86-4.86)
[2023-01-02 05:52] LABS: Potassium 4.2 mmol/L (3.5-5.1)
[2023-01-02 07:00] LABS: Anisocytosis 1+; Blood Morphology Comment NOTED (NOT SEEN); Platelet Estimate INCR; Platelets, Giant 1+
[2023-01-02] MEDS: PANTOPRAZOLE 40MG TABLET PO SCH (07:00)
[2023-01-02 07:01] LABS: Burr Cells 1+; Poikilocytosis 1+
[2023-01-02] MEDS: INSULIN -REGULAR HUMAN 50 UNIT/0.5 ML ML SQ SCH ×4 (07:30→20:02)
--- NOTE | 2023-01-02 07:38 | RAD REPORT ---
EXAM DESCRIPTION: Victor Hugo Single View01/02/2023 5:32 am CLINICAL HISTORY: Leukocytosis COMPARISON: December 22, 2022 FINDINGS: The lungs appear clear of acute infiltrate. The heart is normal size IMPRESSION: No acute abnormalities displayed
[2023-01-02] MEDS: ZINC SULFATE 220 MG CAP PO SCH (08:09)
[2023-01-02] MEDS: GLIMEPIRIDE 2 MG TABLET PO SCH (08:09)
[2023-01-02] MEDS: GABAPENTIN 300 MG CAP PO SCH ×2 (08:09→19:29)
[2023-01-02] MEDS: ASPIRIN 81 MG CHEWABLE TABLET PO SCH (08:09)
[2023-01-02] MEDS: METFORMIN ER 500 MG TAB PO SCH ×2 (08:09→16:37)
[2023-01-02] MEDS: FERROUS SULFATE 325 MG TAB PO SCH (08:10)
[2023-01-02] MEDS: CLOPIDOGREL 75 MG TABLET PO SCH (08:10)
[2023-01-02] MEDS: ANASTROZOLE 1 MG TABLET PO SCH (08:13)
[2023-01-02] MEDS: MAGNESIUM OXIDE 400 MG TAB PO SCH ×2 (10:00→19:29)
[2023-01-02] MEDS: ENOXAPARIN 40 MG/0.4 ML SQ SCH (16:37)
[2023-01-02] MEDS: GLUCERNA SHAKE 237 ML CAN PO SCH (19:30)
[2023-01-02] MEDS: ATORVASTATIN 40 MG TAB PO SCH (19:30)
[2023-01-03 06:10] LABS: Hematocrit 35.8 % (36.0-45.0); Lymphocytes % 54.8 % (15.3-44.8); MCV 96.6 fL (80-100); MPV 9.6 fL (7.6-11.3)
[2023-01-03 06:17] LABS: Potassium 4.4 mmol/L (3.5-5.1)
[2023-01-03] MEDS: PANTOPRAZOLE 40MG TABLET PO SCH (06:33)
[2023-01-03] MEDS: INSULIN -REGULAR HUMAN 50 UNIT/0.5 ML ML SQ SCH ×4 (07:30→20:13)
[2023-01-03] MEDS: GLIMEPIRIDE 2 MG TABLET PO SCH (08:19)
[2023-01-03] MEDS: ZINC SULFATE 220 MG CAP PO SCH (08:20)
[2023-01-03] MEDS: MAGNESIUM OXIDE 400 MG TAB PO SCH ×2 (08:20→20:13)
[2023-01-03] MEDS: ANASTROZOLE 1 MG TABLET PO SCH (08:20)
[2023-01-03] MEDS: FERROUS SULFATE 325 MG TAB PO SCH (08:20)
[2023-01-03] MEDS: ASPIRIN 81 MG CHEWABLE TABLET PO SCH (08:20)
[2023-01-03] MEDS: CLOPIDOGREL 75 MG TABLET PO SCH (08:21)
[2023-01-03] MEDS: GABAPENTIN 300 MG CAP PO SCH ×2 (08:21→20:13)
[2023-01-03] MEDS: GLUCERNA SHAKE 237 ML CAN PO SCH ×2 (08:21→20:13)
[2023-01-03] MEDS: METFORMIN ER 500 MG TAB PO SCH ×2 (08:21→16:54)
[2023-01-03] MEDS: ENOXAPARIN 40 MG/0.4 ML SQ SCH (16:56)
[2023-01-03] MEDS: ATORVASTATIN 40 MG TAB PO SCH (20:13)
[2023-01-03] MEDS: ACETAMINOPHEN 500 MG TAB PO PRN (20:19)
[2023-01-03 21:44] LABS: Specific Gravity 1.008 (1.005-1.030); Urine Bilirubin NEGATIVE (Negative); Urine Blood Negative (Negative); Urine Clarity Clear (Clear); Urine Color Light-Yellow (Yellow); Urine Glucose NEGATIVE (Negative); Urine Protein NEGATIVE (Negative); Urine Urobilinogen Normal (Normal)
[2023-01-04 06:20] LABS: Absolute Lymphocytes (CBC) 8.2 K/uL (0.7-4.9); Lymphocytes % 58.4 % (15.3-44.8); MCV 96.4 fL (80-100); MPV 9.9 fL (7.6-11.3); RBC Red Blood Cell Count 3.73 M/uL (3.86-4.86)
[2023-01-04] MEDS: PANTOPRAZOLE 40MG TABLET PO SCH (06:27)
[2023-01-04 06:43] LABS: Albumin 2.5 g/dL (3.4-5.0); Magnesium 2.4 mg/dL (1.6-2.4); Potassium 4.3 mmol/L (3.5-5.1); Prealbumin 15.8 mg/dL (20-40)
[2023-01-04] MEDS: INSULIN -REGULAR HUMAN 50 UNIT/0.5 ML ML SQ SCH ×4 (07:30→20:05)
[2023-01-04] MEDS: GLIMEPIRIDE 2 MG TABLET PO SCH ×2 (08:00→12:05)
[2023-01-04] MEDS: METFORMIN ER 500 MG TAB PO SCH ×2 (08:00→16:59)
[2023-01-04] MEDS: CLOPIDOGREL 75 MG TABLET PO SCH (08:19)
[2023-01-04] MEDS: ASPIRIN 81 MG CHEWABLE TABLET PO SCH (08:19)
[2023-01-04] MEDS: GABAPENTIN 300 MG CAP PO SCH ×2 (08:19→19:58)
[2023-01-04] MEDS: ANASTROZOLE 1 MG TABLET PO SCH (08:19)
[2023-01-04] MEDS: FERROUS SULFATE 325 MG TAB PO SCH (08:19)
[2023-01-04] MEDS: ZINC SULFATE 220 MG CAP PO SCH (08:19)
[2023-01-04] MEDS: MAGNESIUM OXIDE 400 MG TAB PO SCH ×2 (08:19→19:58)
[2023-01-04] MEDS: GLUCERNA SHAKE 237 ML CAN PO SCH ×2 (08:20→19:58)
[2023-01-04] MEDS: ENOXAPARIN 40 MG/0.4 ML SQ SCH (16:59)
[2023-01-04] MEDS: ATORVASTATIN 40 MG TAB PO SCH (19:58)
[2023-01-04] MEDS: ACETAMINOPHEN 500 MG TAB PO PRN (21:44)
[2023-01-05] MEDS: INSULIN -REGULAR HUMAN 50 UNIT/0.5 ML ML SQ SCH ×4 (07:30→20:24)
[2023-01-05] MEDS: GLUCERNA SHAKE 237 ML CAN PO SCH ×2 (08:00→20:25)
[2023-01-05] MEDS: MAGNESIUM OXIDE 400 MG TAB PO SCH ×2 (08:00→20:22)
[2023-01-05] MEDS: FERROUS SULFATE 325 MG TAB PO SCH (10:39)
[2023-01-05] MEDS: PANTOPRAZOLE 40MG TABLET PO SCH (10:39)
[2023-01-05] MEDS: GABAPENTIN 300 MG CAP PO SCH ×2 (10:39→20:21)
[2023-01-05] MEDS: GLIMEPIRIDE 2 MG TABLET PO SCH (10:39)
[2023-01-05] MEDS: ZINC SULFATE 220 MG CAP PO SCH (10:39)
[2023-01-05] MEDS: CLOPIDOGREL 75 MG TABLET PO SCH (10:39)
[2023-01-05] MEDS: ASPIRIN 81 MG CHEWABLE TABLET PO SCH (10:40)
[2023-01-05] MEDS: METFORMIN ER 500 MG TAB PO SCH ×2 (10:40→17:43)
[2023-01-05] MEDS: ANASTROZOLE 1 MG TABLET PO SCH (10:41)
[2023-01-05] MEDS: ENOXAPARIN 40 MG/0.4 ML SQ SCH (17:43)
[2023-01-05] MEDS: ATORVASTATIN 40 MG TAB PO SCH (20:22)
[2023-01-05] MEDS: ACETAMINOPHEN 500 MG TAB PO PRN (22:02)
[2023-01-06] MEDS: PANTOPRAZOLE 40MG TABLET PO SCH (06:46)
[2023-01-06] MEDS: INSULIN -REGULAR HUMAN 50 UNIT/0.5 ML ML SQ SCH ×4 (07:30→20:23)
[2023-01-06] MEDS: ANASTROZOLE 1 MG TABLET PO SCH (07:47)
[2023-01-06] MEDS: ZINC SULFATE 220 MG CAP PO SCH (07:47)
[2023-01-06] MEDS: ASPIRIN 81 MG CHEWABLE TABLET PO SCH (07:47)
[2023-01-06] MEDS: CLOPIDOGREL 75 MG TABLET PO SCH (07:47)
[2023-01-06] MEDS: MAGNESIUM OXIDE 400 MG TAB PO SCH ×2 (07:47→19:33)
[2023-01-06] MEDS: FERROUS SULFATE 325 MG TAB PO SCH (07:47)
[2023-01-06] MEDS: GABAPENTIN 300 MG CAP PO SCH ×2 (07:47→19:33)
[2023-01-06] MEDS: GLIMEPIRIDE 2 MG TABLET PO SCH (08:00)
[2023-01-06] MEDS: METFORMIN ER 500 MG TAB PO SCH ×2 (08:00→17:14)
[2023-01-06] MEDS: GLUCERNA SHAKE 237 ML CAN PO SCH ×3 (11:25→20:00)
[2023-01-06] MEDS: ENOXAPARIN 40 MG/0.4 ML SQ SCH (17:14)
[2023-01-06] MEDS: ATORVASTATIN 40 MG TAB PO SCH (19:34)
[2023-01-06] MEDS: DOCUSATE NA/SENNA CONC 1 TAB PO PRN (19:34)
[2023-01-06] MEDS: ACETAMINOPHEN 500 MG TAB PO PRN (21:14)
[2023-01-07] MEDS: PANTOPRAZOLE 40MG TABLET PO SCH (06:58)
[2023-01-07] MEDS: INSULIN -REGULAR HUMAN 50 UNIT/0.5 ML ML SQ SCH ×4 (07:30→21:00)
[2023-01-07] MEDS: GLIMEPIRIDE 2 MG TABLET PO SCH (08:00)
[2023-01-07] MEDS: METFORMIN ER 500 MG TAB PO SCH ×2 (08:00→17:04)
[2023-01-07] MEDS: GLUCERNA SHAKE 237 ML CAN PO SCH ×2 (08:34→19:59)
[2023-01-07] MEDS: ANASTROZOLE 1 MG TABLET PO SCH (08:34)
[2023-01-07] MEDS: ASPIRIN 81 MG CHEWABLE TABLET PO SCH (08:34)
[2023-01-07] MEDS: CLOPIDOGREL 75 MG TABLET PO SCH (08:35)
[2023-01-07] MEDS: GABAPENTIN 300 MG CAP PO SCH ×2 (08:35→19:59)
[2023-01-07] MEDS: ZINC SULFATE 220 MG CAP PO SCH (08:35)
[2023-01-07] MEDS: FERROUS SULFATE 325 MG TAB PO SCH (08:36)
[2023-01-07] MEDS: MAGNESIUM OXIDE 400 MG TAB PO SCH ×2 (08:36→19:59)
[2023-01-07] MEDS: ENOXAPARIN 40 MG/0.4 ML SQ SCH (17:04)
[2023-01-07] MEDS: ATORVASTATIN 40 MG TAB PO SCH (19:59)
[2023-01-07] MEDS: ACETAMINOPHEN 500 MG TAB PO PRN (19:59)
[2023-01-08] MEDS: PANTOPRAZOLE 40MG TABLET PO SCH (05:46)
[2023-01-08] MEDS: INSULIN -REGULAR HUMAN 50 UNIT/0.5 ML ML SQ SCH ×4 (07:30→20:09)
[2023-01-08] MEDS: GLUCERNA SHAKE 237 ML CAN PO SCH ×2 (08:00→19:20)
[2023-01-08] MEDS: METFORMIN ER 500 MG TAB PO SCH ×2 (08:00→17:00)
[2023-01-08] MEDS: GLIMEPIRIDE 2 MG TABLET PO SCH (08:00)
--- NOTE | 2023-01-08 08:03 | P.HP ---
Certification for Inpatient Patient admitted to: Inpatient With expected LOS: >2 Midnights Patient will require the following post-hospital care: None Practitioner: I am a practitioner with admitting privileges, knowledge of patient current condition, hospital course, and medical plan of care. Services: Services provided to patient in accordance with Admission requirements found in Title 42 Section 412.3 of the Code of Federal Regulations Patient History Date of Service: 01/01/23 Reason for admission: Sepsis History of Present Illness: Patient has had 67-year-old female, who was admitted from general medical floor after recovering from a right parietal stroke. Patient was having paresthesias and numbness. She also had labs concerning for sepsis. She has had significant weakness on the left side of her body. She has been weak and having paresthesias. She has been working with physical therapy downstairs and because of her significant deficits it was felt she would be a good candidate to recover at inpatient rehabilitation. After evaluation by Physical therapy, and because of her significant deficits we decided to proceed with admission to inpatient rehabilitation. Allergies pineapple Allergy (Verified 05/03/22 09:00) Anaphylaxis Home Medications: Atorvastatin Calcium [Lipitor] 40 mg PO BEDTIME #30 tab 07/21/21 Clopidogrel Bisulfate [Plavix*] 75 mg PO DAILY #30 tablet 07/21/21 Aspirin 81 mg PO DAILY #30 tab.chew 05/13/22 Magnesium Oxide 400 mg PO BID 06/14/22 Gabapentin 300 mg PO BID 11/03/22 Pantoprazole Sodium 40 mg PO DAILY 11/03/22 Acetaminophen with Codeine [Acetaminophen-Cod #3 Tablet] 300 mg PO Q4HR 12/23/22 Anastrozole 1 mg PO DAILY 12/23/22 Metformin ER [Glucophage ER*] 500 mg PO BID 12/23/22 - Past Medical/Surgical History Has patient received pneumonia vaccine in the past: Yes Diabetic: Yes -: HTN -: NIDDM -: TIAs -: tobacco abuse -: CVAs -: Breast Cancer -: Bilateral mastectomy -: appendectomy -: splenectomy Psychosocial/ Personal History: Patient lives at home with her daughters. - Family History Father Medical History: Heart disease Notes: Patient was adopted - Social History Smoking Status: Former smoker Alcohol use: No CD- Drugs: No Caffeine use: Yes Place of Residence: Home Review of Systems 10-point ROS is otherwise unremarkable Physical Examination - Vital Signs Temperature: 97.2 F Blood Pressure: 119/57 Pulse: 75 Respirations: 18 Pulse Ox (%): 93 - Physical Exam General: Alert, In no apparent distress, Oriented x3 HEENT: Atraumatic, PERRLA, Mucous membr. moist/pink, EOMI, Sclerae nonicteric Neck: Supple, 2+ carotid pulse no bruit, No LAD, Without JVD or thyroid abnormality Respiratory: Clear to auscultation bilaterally, Normal air movement Cardiovascular: Regular rate/rhythm, Normal S1 S2, No murmurs Gastrointestinal: Normal bowel sounds, Soft and benign, Non-distended, No tenderness Musculoskeletal: No clubbing, No swelling, No tenderness Integumentary: No rashes Neurological: Normal speech, Normal tone, Sensation intact, Cranial nerves 3-12 intact, Normal affect, Abnormal gait, Abnormal strength Lymphatics: No axilla or inguinal lymphadenopathy Assessment & Plan - Problems (Diagnosis) (1) Acute CVA (cerebrovascular accident) Current Visit: No Status: Acute (2) BMI 40.0-44.9, adult Current Visit: No Status: Acute (3) COPD (chronic obstructive pulmonary disease) Current Visit: No Status: Acute Qualifiers: (4) Breast cancer Current Visit: No Status: Chronic Qualifiers: (5) DM2 (diabetes mellitus, type 2) Current Visit: No Status: Chronic Qualifiers: (6) HTN (hypertension) Current Visit: No Status: Chronic Qualifiers: - Plan 1. MRI of the brain qith right parietal infarct-left sided deficits 2. Echocardiogram and carotid Doppler reviewed 3. Anti-platelet therapy and statin therapy 4. Physical therapy/occupational therapy/speech therapy evaluation 5. antibiotics pending repeat cx 6. DVT prophylaxis Discharge Plan: Home Plan to discharge in: Greater than 2 days - Advance Directives Does patient have a Living Will: No Does patient have a Durable POA for Healthcare: No Date of Service: 01/01/23
--- NOTE | 2023-01-08 08:18 | P.PN ---
Subjective Date of Service: 01/02/23 Physical Examination - Vital Signs Temperature: 97.2 F Blood Pressure: 119/57 Pulse: 75 Respirations: 18 Pulse Ox (%): 93 Assessment & Plan - Problems (Diagnosis) (1) Acute CVA (cerebrovascular accident) Current Visit: No Status: Acute (2) BMI 40.0-44.9, adult Current Visit: No Status: Acute (3) COPD (chronic obstructive pulmonary disease) Current Visit: No Status: Acute Qualifiers: (4) Breast cancer Current Visit: No Status: Chronic Qualifiers: (5) DM2 (diabetes mellitus, type 2) Current Visit: No Status: Chronic Qualifiers: (6) HTN (hypertension) Current Visit: No Status: Chronic Qualifiers: - Plan 1. MRI of the brain qith right parietal infarct-left sided deficits 2. Echocardiogram and carotid Doppler reviewed 3. Anti-platelet therapy and statin therapy 4. Physical therapy/occupational therapy/speech therapy evaluation 5. antibiotics pending repeat cx 6. DVT prophylaxis - Advance Directives Does patient have a Living Will: No Does patient have a Durable POA for Healthcare: No Date of Service: 01/02/23
--- NOTE | 2023-01-08 08:19 | P.PN ---
Subjective Date of Service: 01/04/23 Subjective: No new changes, No C/O voiced Physical Examination - Vital Signs Temperature: 97.2 F Blood Pressure: 119/57 Pulse: 75 Respirations: 18 Pulse Ox (%): 93 - Physical Exam General: Alert, In no apparent distress, Oriented x3 Respiratory: Clear to auscultation bilaterally, Normal air movement Cardiovascular: Regular rate/rhythm, Normal S1 S2 Gastrointestinal: Normal bowel sounds, Soft and benign, Non-distended Musculoskeletal: No clubbing, No swelling, No erythema Neurological: Abnormal gait, Abnormal strength Assessment & Plan - Problems (Diagnosis) (1) Acute CVA (cerebrovascular accident) Current Visit: No Status: Acute (2) BMI 40.0-44.9, adult Current Visit: No Status: Acute (3) COPD (chronic obstructive pulmonary disease) Current Visit: No Status: Acute Qualifiers: (4) Breast cancer Current Visit: No Status: Chronic Qualifiers: (5) DM2 (diabetes mellitus, type 2) Current Visit: No Status: Chronic Qualifiers: (6) HTN (hypertension) Current Visit: No Status: Chronic Qualifiers: - Plan 1. MRI of the brain qith right parietal infarct-left sided deficits 2. Echocardiogram and carotid Doppler reviewed 3. Anti-platelet therapy and statin therapy 4. Physical therapy/occupational therapy/speech therapy evaluation 5. antibiotics pending repeat cx 6. DVT prophylaxis - Advance Directives Does patient have a Living Will: No Does patient have a Durable POA for Healthcare: No Date of Service: 01/04/23
--- NOTE | 2023-01-08 08:21 | P.PN ---
Date of Service: 01/06/23 Subjective Subjective: No new changes, No C/O voiced Physical Examination - Vital Signs reviewed - Physical Exam General: Alert, In no apparent distress, Oriented x3 Respiratory: Clear to auscultation bilaterally, Normal air movement Cardiovascular: Regular rate/rhythm, Normal S1 S2 Gastrointestinal: Normal bowel sounds, Soft and benign, Non-distended Musculoskeletal: No clubbing, No swelling, No erythema Neurological: Abnormal gait, Abnormal strength Assessment & Plan - Problems (Diagnosis) (1) Acute CVA (cerebrovascular accident) Current Visit: No Status: Acute (2) BMI 40.0-44.9, adult Current Visit: No Status: Acute (3) COPD (chronic obstructive pulmonary disease) Current Visit: No Status: Acute Qualifiers: (4) Breast cancer Current Visit: No Status: Chronic Qualifiers: (5) DM2 (diabetes mellitus, type 2) Current Visit: No Status: Chronic Qualifiers: (6) HTN (hypertension) Current Visit: No Status: Chronic Qualifiers: - Plan 1. MRI of the brain qith right parietal infarct-left sided deficits 2. Echocardiogram and carotid Doppler reviewed 3. Anti-platelet therapy and statin therapy 4. Physical therapy/occupational therapy/speech therapy evaluation 5. antibiotics pending repeat cx 6. DVT prophylaxis - Advance Directives Does patient have a Living Will: No Does patient have a Durable POA for Healthcare: No Date of Service: 01/04/23
[2023-01-08] MEDS: ASPIRIN 81 MG CHEWABLE TABLET PO SCH (10:03)
[2023-01-08] MEDS: FERROUS SULFATE 325 MG TAB PO SCH (10:05)
[2023-01-08] MEDS: GABAPENTIN 300 MG CAP PO SCH ×2 (10:08→19:20)
[2023-01-08] MEDS: MAGNESIUM OXIDE 400 MG TAB PO SCH ×2 (10:08→19:20)
[2023-01-08] MEDS: ANASTROZOLE 1 MG TABLET PO SCH (10:09)
[2023-01-08] MEDS: CLOPIDOGREL 75 MG TABLET PO SCH (10:11)
[2023-01-08] MEDS: ZINC SULFATE 220 MG CAP PO SCH (10:12)
[2023-01-08 12:14] LABS: Potassium 4.2 mEq/L (3.5-5.1)
[2023-01-08 12:19] LABS: Absolute Lymphocytes (CBC) 6.1 K/uL (0.7-4.9); Hematocrit 40.6 % (36.0-45.0); Lymphocytes % 49.7 % (15.3-44.8); MCV 97.3 fL (80-100); MPV 10.3 fL (7.6-11.3); RBC Red Blood Cell Count 4.17 M/uL (3.86-4.86)
[2023-01-08] MEDS: ENOXAPARIN 40 MG/0.4 ML SQ SCH (17:00)
[2023-01-08] MEDS: ATORVASTATIN 40 MG TAB PO SCH (19:20)
[2023-01-08] MEDS: ACETAMINOPHEN 500 MG TAB PO PRN (22:15)
[2023-01-09] MEDS: PANTOPRAZOLE 40MG TABLET PO SCH ×2 (05:03→06:35)
[2023-01-09] MEDS: INSULIN -REGULAR HUMAN 50 UNIT/0.5 ML ML SQ SCH ×4 (07:30→20:06)
[2023-01-09] MEDS: MAGNESIUM OXIDE 400 MG TAB PO SCH ×2 (08:00→19:49)
[2023-01-09] MEDS: GLIMEPIRIDE 2 MG TABLET PO SCH (08:00)
[2023-01-09] MEDS: METFORMIN ER 500 MG TAB PO SCH ×2 (08:00→17:00)
[2023-01-09] MEDS: ZINC SULFATE 220 MG CAP PO SCH (08:01)
[2023-01-09] MEDS: ASPIRIN 81 MG CHEWABLE TABLET PO SCH (08:01)
[2023-01-09] MEDS: CLOPIDOGREL 75 MG TABLET PO SCH (08:01)
[2023-01-09] MEDS: FERROUS SULFATE 325 MG TAB PO SCH (08:01)
[2023-01-09] MEDS: ANASTROZOLE 1 MG TABLET PO SCH (08:01)
[2023-01-09] MEDS: GLUCERNA SHAKE 237 ML CAN PO SCH ×2 (08:02→19:50)
[2023-01-09] MEDS: GABAPENTIN 300 MG CAP PO SCH ×2 (08:02→19:49)
[2023-01-09] MEDS: ENOXAPARIN 40 MG/0.4 ML SQ SCH (17:00)
[2023-01-09] MEDS: ATORVASTATIN 40 MG TAB PO SCH (19:49)
[2023-01-09] MEDS: ACETAMINOPHEN 500 MG TAB PO PRN (19:49)
--- NOTE | 2023-01-09 23:47 | PN ---
Gvdj-Rb-Xzqi Progress Note Subjective: Ms. Jackson is in the gym doing therapy. Her spirits are elevated as she feels she is imp roving in terms of all of her abilities, her endurance, her capacity to transfer, and to perform uppe r and lower body dressing. She feels more confident about that. Review of Systems: She denies any fevers, chills, nausea, vomiting, myalgias, arthralgias, significant headache, weight change, or any psychiatric issues. Physical Examination: Vital Signs: Blood pressure 116/56, pulse 85, respiratory rate 16, temperature 97.4, and oxygen satu ration 96%. General: Ms. Jackson as noted is in a chair in the gym, getting ready to begin therapy. She does have improvement in the left-sided paresis from the right parietal stroke and her deficits. Again she fe els it is improving with her therapy. She does have neuropathic type pain, likely related to diabete s mellitus and managed well with gabapentin. Lungs: Clear. Abdomen: Soft. Extremities: No significant edema noted. Laboratory Studies: Complete blood count with differential with white blood cell count 12.3, hemoglo bin 12.7, and platelets 381. Chemistries: Sodium 137, potassium 4.2, BUN 12, creatinine 0.61, gluco se 104 up to 128. COVID testing was negative on the . No new x-ray or imaging. Medications: Extra-strength Tylenol 500 mg every 4 hours, Tylenol No. 3 every 4 hours as needed, asp irin 162 mg daily, Lipitor 40 mg at bedtime, Plavix 75 mg daily, Lovenox 40 mg subcutaneously daily, Glucerna Shake 237 mL twice daily, ferrous sulfate 325 mg daily, gabapentin 300 mg twice daily, Amary l 2 mg with breakfast, magnesium oxide 400 mg twice daily, Glucophage 500 mg twice daily, Zofran 4 mg q.6 hours as needed, Protonix 40 mg daily, Senokot-S 2 at bedtime, and zinc sulfate 220 mg daily. Current Functional Status: Ms. Jackson was able to perform stand and pivot transfers independently usi ng a rolling walker. She performed toilet transfers independently. She voided well and was able to perform her own self-care in terms of toileting. She did ambulate 250 twice and another 100 feet onc e and another 100 feet once independently using a rolling walker. She ascended and descended 15 step s with standby assistance using bilateral handrails. She self propelled a wheelchair 250 feet with p hysical therapist in tow. With occupational therapy, she did shower with set up to contact guard ass istance for [id number]-hj-svqub and placement of affected hand on the grab bars. Did don and doff clothing independently. Contact guard assist for lower body clothing management. Independent with upper body dressing. No speech therapy required. Progress Towards Rehabilitation Goals: She is making excellent progress towards her rehabilitation g oals and could improve even more to become fully independent. Assessment: Ms. Jackson is a 67-year-old patient in the rehabilitation unit with a right parietal stro ke, some residual left-sided weakness and incoordination from which she is improving very well. She does have comorbidities of dyslipidemia, diabetes mellitus, gastroesophageal reflux, history of breas t cancer, prior stroke, tobacco dependency, hypertension, and transient ischemic attacks. Plan: 1.She will have physical and occupational therapy continued 3 hours a day, 5 of 7 days. 2.Her comorbidities, which are listed above will be addressed by continuing medications listed and a s noted. Comorbidities That Are Continuing To Impact Her Rehabilitation Process: At this point, her comorbidi ties are well managed and do not negatively impact her rehabilitation progress and she may be ready f or discharge in the next few days. It was recommended that she continue with physical therapy outlisaen t. SEAMUS/JEANNETTE Voice ID: [id number] Report ID: [id number]
[2023-01-10] MEDS: INSULIN -REGULAR HUMAN 50 UNIT/0.5 ML ML SQ SCH ×4 (07:30→20:15)
[2023-01-10] MEDS: GLUCERNA SHAKE 237 ML CAN PO SCH ×2 (08:00→20:05)
[2023-01-10] MEDS: MAGNESIUM OXIDE 400 MG TAB PO SCH ×2 (08:00→19:55)
[2023-01-10] MEDS: ASPIRIN 81 MG CHEWABLE TABLET PO SCH (10:11)
[2023-01-10] MEDS: GABAPENTIN 300 MG CAP PO SCH ×2 (10:11→19:54)
[2023-01-10] MEDS: METFORMIN ER 500 MG TAB PO SCH ×2 (10:11→17:52)
[2023-01-10] MEDS: FERROUS SULFATE 325 MG TAB PO SCH (10:12)
[2023-01-10] MEDS: CLOPIDOGREL 75 MG TABLET PO SCH (10:12)
[2023-01-10] MEDS: GLIMEPIRIDE 2 MG TABLET PO SCH (10:13)
[2023-01-10] MEDS: ANASTROZOLE 1 MG TABLET PO SCH (10:13)
[2023-01-10] MEDS: ZINC SULFATE 220 MG CAP PO SCH (10:13)
[2023-01-10] MEDS: PANTOPRAZOLE 40MG TABLET PO SCH (10:18)
[2023-01-10] MEDS: ENOXAPARIN 40 MG/0.4 ML SQ SCH (17:52)
[2023-01-10] MEDS: ATORVASTATIN 40 MG TAB PO SCH (19:54)
[2023-01-10] MEDS: ACETAMINOPHEN 500 MG TAB PO PRN (19:55)
--- NOTE | 2023-01-10 20:59 | PN ---
Date of Progress Note: 01/10/2023 Time Of Service: 12:30 p.m. Subjective: Ms. Jackson is doing very well. She is happy with her progress while in physical therapy and she feels ready to go home which will be tomorrow. She has no new complaints. No other disturbi ng issues. She did say that she has to go back home to her ex-. They apparently were doing f airly well once , but somehow she is able to arrange to go back with him. She, at this poin t, was told that she would be benefitting more from outpatient physical therapy rather than home heal th but she has some issues of transportation, although she has multiple daughters, they are working a nd they may work to arrange that. Review of Systems: No fevers, chills, nausea, vomiting, myalgias, arthralgias, rash, psychiatric issues. Physical Examination: Vital Signs: Blood pressure 116/59, pulse 69, respiratory rate 16, temperature 97.6, oxygen saturati on 92%. General: Ms. Jackson is generally doing well. HEENT: She is normocephalic, atraumatic. Sclerae anicteric. Oropharynx is moist. Neck: Supple. Chest: Clear. Heart: Regular. Extremities: Show no significant edema or cyanosis. She does have some left-sided numbness, weaknes s, incoordination from her right parietal stroke. MRI for that on 12/23/2022 showed the stroke, it w as 4.7 cm subacute in the right parietal lobe with laminar necrosis present. Laboratory Studies: No new laboratory studies. The last blood work, 01/08/2023, shows white blood c ell count 12.3. Normal hemoglobin and hematocrit, platelets 381. Blood sugars from range d from 96 to 125. X-ray imaging: No new x-ray imaging. Medications: Reviewed and are unchanged. She is on aspirin; Plavix; Lipitor; Lovenox; gabapentin; z inc sulfate; Senokot; and for diabetes, Glucophage and Amaryl. Current Functional Status: She ambulated 300 feet twice and a 250 feet once with independence using a rolling walker. She also used a hemiwalker with contact guard assistance covering 250 feet, anothe r 100 feet. She had good stability with a hemiwalker. She was able to ascend and descend 15 steps i ndependently using bilateral handrails. Her left-sided weakness is not much of an issue. She does h ave some incoordination of the left upper and lower extremity, but again nonlimiting. In terms of oc cupational therapy, she showed good response and was independent with self-care, standby assist for t oileting and showering transfer. It is noted all durable medical equipment needs had been addressed adequately. Progress Towards Rehabilitation Goals: At this point, she has met rehabilitation goals of independen ce through transfers from bed to chair. Still supervision in shower. She is independent covering 25 0 feet ambulating with the platform walker and hemiwalker up and down steps independently and cogniti ve functioning is at an independent level. Assessment And Plan: Ms. Jackson is a 67-year-old patient in the rehabilitation unit with sepsis which is resolved. She does have a right parietal stroke with left-sided weakness, incoordination which h as improved very well. 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 She has tobacco depe ndency, hypertension, and transient ischemic attack. Plan: 1.She will finish up her therapy today and then be ready after doing therapy in the morning to be di scharged. She will be discharged home and the goal will be to do outpatient physical therapy. She a lso would benefit from occupational therapy to help with improving fine activities in terms of the puga nds. 2.She has multiple comorbid conditions as noted above. She has multiple medications which will be c ontinued to address those and those had been noted which would include for diabetes, for hypertension , for risk of deep vein thrombosis, for dyslipidemia, for GE reflux as well. Comorbids That Continued To Impact Rehabilitation Process: She had a stroke with left-sided weakness and she is improving very well, so not much of a limiting factor. She has breast cancer with chemot herapy and has got peripheral neuropathy related to that and she has improved relatively with regard to that as well and she will be ready for discharge tomorrow. SEAMUS/JEANNETTE Voice ID: [id number] Report ID: [id number]
[2023-01-11] MEDS: PANTOPRAZOLE 40MG TABLET PO SCH (06:27)
[2023-01-11 07:26] VITALS: BP 118/55; TEMP 97.1
[2023-01-11] MEDS: INSULIN -REGULAR HUMAN 50 UNIT/0.5 ML ML SQ SCH ×2 (07:30→11:30)
[2023-01-11] MEDS: ANASTROZOLE 1 MG TABLET PO SCH (07:32)
[2023-01-11] MEDS: GLUCERNA SHAKE 237 ML CAN PO SCH (07:33)
[2023-01-11] MEDS: ZINC SULFATE 220 MG CAP PO SCH (07:33)
[2023-01-11] MEDS: ASPIRIN 81 MG CHEWABLE TABLET PO SCH (07:33)
[2023-01-11] MEDS: CLOPIDOGREL 75 MG TABLET PO SCH (07:33)
[2023-01-11] MEDS: FERROUS SULFATE 325 MG TAB PO SCH (07:33)
[2023-01-11] MEDS: GABAPENTIN 300 MG CAP PO SCH (07:33)
[2023-01-11] MEDS: MAGNESIUM OXIDE 400 MG TAB PO SCH (07:33)
[2023-01-11] MEDS ORDERED: NYSTATIN PWDR 100000 UNIT/GM TOP SCH (08:00)
[2023-01-11] MEDS: METFORMIN ER 500 MG TAB PO SCH (08:16)
[2023-01-11] MEDS: GLIMEPIRIDE 2 MG TABLET PO SCH (08:16)
--- NOTE | 2023-01-21 01:45 | DS ---
Date of Discharge: 01/11/2023 Discharge Diagnoses: Sepsis that has resolved, right parietal stroke with left-sided weakness and in coordination, dyslipidemia, diabetes mellitus, gastroesophageal reflux, remote history of breast canc er, toxic peripheral neuropathy, tobacco dependency, transient ischemic attack, and hypertension. Discharge Condition: Good. Diet: Heart-healthy diabetic diet. Weightbearing Status: Weightbearing as tolerated. Allergies: PINEAPPLE. Discharge Medications: Gabapentin 300 mg twice daily, Tylenol 3 every 4 hours as needed, Plavix 75 m g daily, Lipitor 40 mg at bedtime, aspirin 81 mg daily, anastrozole 1 mg daily, pantoprazole 40 mg da doug, Glucophage extended release 500 mg twice daily, magnesium oxide 400 mg twice daily, zinc sulfate 220 mg daily, Amaryl 2 mg daily, and ferrous sulfate 325 mg daily. Laboratory Studies: White blood cell count 12.3, hemoglobin 12.7, and platelets 381. Chemistries: Glucose ranged 96 to 134, sodium 137, potassium 4.2, chloride 109, carbon dioxide 25, BUN 12, creatin ine 0.61, and calcium 9.4. COVID testing was negative on 01/06/2023. Urinalysis was normal on 12/31 and 01/03/2023. X-ray/imaging: She had an x-ray on 01/02/2023. The study showed clear lungs of acute infiltrate. H eart was of normal size. No acute abnormalities identified. The study was done due to leukocytosis. Hospital Course: Ms. Jackson was admitted as noted to the unit with sepsis, which had resolved. She d id have white blood count that improved by discharge, but was still slightly elevated. She had right parietal stroke with left body involvement with weakness and incoordination. She had comorbidities with diabetes mellitus, hypertension, dyslipidemia, GE reflux, peripheral neuropathy, chemotherapy fo r remote breast cancer, and tobacco dependency. Her comorbid conditions were stably managed. She di d not develop additional strokes, TIAs, or any deep vein thrombosis and remained afebrile despite sli ght elevation in white blood cell count. She had no significant pain during hospitalization and any issues of pain was managed with Tylenol 3. Progress Made With Physical And Occupational Therapy: By hospital discharge, Ms. Jackson was able to a mbulate with a rolling walker covering 300 feet with good tolerance on multiple surfaces including ti led, carpeted floors, and outdoors. She ascended and descended 15 steps with good tolerance using puga ndrails. She was able to go in and out of an SUV with a rolling walker with modified independence. As noted she made good progress throughout her hospital stay, met all functional goals and was discha rged home with recommendation for Home Health and continue with physical therapy. All her durable me dical equipment needs were met. Regarding her occupational therapy, in terms of assessment of streng th, her left and right shoulders were 5/5 except for shoulder flexion of 4/5 on the left side. Pinch ing was slightly weak at 3/5 for left hand coloring room man strength. She is right hand dominant. Her eating wa s independent, bathing without limitations and independent. It is recommended that she still needed standby assistance though for the tub and shower and toileting transfer for risk of falling. It is n oted, she is independent with extended time to allow for those things to be done and all durable medi richard equipment needs were met. SEAMUS/JEANNETTE Voice ID: [id number] Report ID: [id number]
== END 2023-01-11 11:40 | disposition home or self-care (01) | DRG 57 ==
LOC: 5TH 12-31 10:50
PROVIDERS: ADMIT Hospitalist; ATTEND Psychiatry & Neurology Neurology with Special Qualifications in Child Neurology
DX: I69.354 Hemiplegia and hemiparesis following cerebral infarction affecting left non-dominant side (principal); Z68.41 Body mass index [BMI] 40.0-44.9, adult; E78.5 Hyperlipidemia, unspecified; E11.9 Type 2 diabetes mellitus without complications; C50.919 Malignant neoplasm of unspecified site of unspecified female breast; J44.9 Chronic obstructive pulmonary disease, unspecified; K21.9 Gastro-esophageal reflux disease without esophagitis; I10 Essential (primary) hypertension; F17.200 Nicotine dependence, unspecified, uncomplicated
CPT/HCPCS: 36415; 71045; 80048; 81001; 81003; 82040; 82947; 83735; 84134; 85025; 87077; 87086; 87088; 87186; 97110; 97112; 97116; 97124; 97161; 97165; 97530; 97542; J1650; U0003

== ENCOUNTER 2023-08-19 17:10 | Emergency (ER) | payer OTHER ==
--- OUTSIDE RECORDS SUMMARY | 2023-08-19 17:13 | XMS REPORT | Clinical Summary ---
:1955 Author Organization [facility] Address [address] [place] [address] Care Team Providers Name Role Phone Unavailable Primary Care Provider Unavailable Allergies Not on File Medications Not on file Active Problems Not on file Social History Tobacco Use Types Packs/Day Years Used Date Smoking Tobacco: Never Assessed Sex and Gender Information Value Date Recorded Sex Assigned at Not on file Gender Identity Not on file Sexual Orientation Not on file Job Start Date Occupation Industry Not on file Not on file Not on file Last Filed Vital Signs Not on file Plan of Treatment Not on file Results Not on fileafter 08/19/2022 Insurance Payer Benefit Plan / Subscriber ID Effective Dates Phone Addre ss Type Group HUMANA HUMANA GOLD [id number] 2021-[place] [address] [phone] Medicare MEDICARE PLUS MEDICARE [facility] [id number]
--- OUTSIDE RECORDS SUMMARY | 2023-08-19 17:13 | XMS REPORT | Continuity of Care Document ---
:1955 Author Organization [facility] t Address [address] [place] [address] Care Team Providers Name Role Phone Stephania Sorenson Anavella Attending Clinician Unava KAROLINA Momin Attending Clinician Unavailable YUNIOR BARNES Attending Clinician Unavailable Yunior Barnes Attending Clinician Mickey Nichols Attending Clinician ANA BOO Attending Clinician Unavailable JENNIFER EMERY Attending Clinician Unavailable Adrian Sorenson Anav Admitting Clinician Unavailable YUNIOR BARNES Admitting Clinician Unavailable Yunior Barnes Admitting Clinician Mickey Nichols Admitting Clinician ANA BOO Admitting Clinician Unavailable Payers Payer Name Policy Type Policy Number Effective Date Expiration Date S ericka [facility] [id number] [facility] [id number] 2023 00:00:00 Problems This patient has no known problems. Allergies, Adverse Reactions, Alerts Allergy Allergy Status Severity Reaction(s) Onset Inactive Treating Comm ents Source Name Type Date Date Clinician NKA Allergy Active [facility] 2-14 11:13: 06 NKA Allergy Active [facility] 2- 11:13: 06 NKA Allergy Active [facility] 2-14 11:13: 06 NKA Allergy Active [facility] 2-14 11:13: 06 NKA Allergy Active [facility] 2-14 11:13: 06 NKA Allergy Active [facility] 2-14 11:13: 06 NKA Allergy Active [facility] 2-14 11:13: 06 Social History Social Habit Start Date Stop Date Quantity Comments Source Sexual orientation Univer [facility] Sex Assigned At [birth year] [facility] 00:00:00 00:00:00 [facility] Medications This patient has no known medications. Procedures This patient has no known procedures. Encounters Start End Encounter Admission Attending Care Care Encounter Source Date/Time Date/Time Type Type Clinicians Facility Department ID 2022-11-16 Outpatient 3 [facility] [id number] [facility] 11:41:06 [facility]ales [facility] [place] 2022-11-14 Outpatient 3 [facility] CVA [id number] [facility] 10:22:13 Geri gonzales [facility] [place] 2022-11-08 Outpatient 3 [facility] CVA [id number] [facility] 10:26:46 Renato [facility]onzales [facility] [place] 2023-08-14 2023-08-14 Outpatient JOHN [facility] [id number] [place] 14:00:00 14:00:00 KAROLINAUpper [facility] 2023-08-03 2023-08-11 Outpatient E MOLLY, [facility] [id number] [facility] 22:06:00 10:53:00 YUNIOR Hung 2023-08-03 2023-08-11 Outpatient Molly, [facility] [id number] 22:06:00 10:53:00 Yunior Hung 2023-08-03 2023-08-03 Outpatient Molly, [facility] [id number] 22:00:00 22:00:00 Yunior Hung 2023-07-11 2023-07-14 Outpatient Magdalena, [facility] [id number] 23:11:00 14:56:00 Mickey [address] 2023-07-11 2023-07-14 Outpatient Magdalena, [facility] [id number] 23:11:00 14:56:00 Mickey [address] 2022-12-06 2023-04-03 Outpatient RECERTIFIC BOO, [facility] EN[facility] [id number] [facility] 00:00:00 00:00:00 MAGGY PEREZ 2022-12-06 2022-12-06 Outpatient READMISSIO MAINE [facility] [id number] [facility] 00:00:00 00:00:00 JENNIFER MAIN 2022-11-17 2022-12-03 [facility] [id number] [facility] 16:35:00 14:20:00 Nikhil gonzales [facility] Tatyana messer 2022-06-14 2022-06-14 Travel 1.2.840.1 [id number] [facility] 00:00:00 00:00:00 [id number] ity of 3.412.2.7 2.[place].7.3.698 [place] .[id number] 084.8 MD Fisher8 [facility] 2022-06-02 2022-06-02 Travel 1.2.840.1 [id number] [facility] 00:00:00 00:00:00 [id number] ity of 3.412.2.7 2.2[place]7.3.698 [place] .[id number] 084.8 MD Ta [facility] Results This patient has no known results.
[2023-08-19 18:16] LABS: Absolute Lymphocytes (CBC) 3.6 K/uL (0.7-4.9); Hematocrit 35.6 % (36.0-45.0); MCV 90.4 fL (80-100); MPV 9.5 fL (7.6-11.3); Platelets 411 thou/uL (152-406); RBC Red Blood Cell Count 3.94 M/uL (3.86-4.86)
--- NOTE | 2023-08-19 18:21 | RAD REPORT ---
EXAM DESCRIPTION: RAD - Chest Single View - 08/19/2023 6:12 pm CLINICAL HISTORY: SOB COMPARISON: Chest Single View dated 08/03/2023; Chest Single View dated 01/02/2023; Chest Single View dated 12/22/2022; Chest Single View dated 11/12/2022 FINDINGS: Lines: None. Lungs: Diffuse prominence of the pulmonary interstitium. This is similar . Pleural: No significant pleural effusions or pneumothorax. Cardiac: Mild cardiomegaly. Mediastinum: Within normal limits. Bones: No acute fractures. Other: None IMPRESSION: Similar mild pulmonary edema.
[2023-08-19 18:23] LABS: Protime INR 1.32
[2023-08-19 18:36] LABS: Albumin 2.9 g/dL (3.4-5.0); Bilirubin Direct 0.2 mg/dL (0-0.2); Bilirubin Indirect, Calculated 0.4 mg/dL (0.2-0.8); Bilirubin Total 0.6 mg/dL (0.2-1.0); Magnesium 1.6 mg/dL (1.6-2.4); Potassium 4.2 mEq/L (3.5-5.1); Protein, Total 7.9 g/dL (6.4-8.2); Troponin High Sensitivity 24.8 pg/mL (<58.9)
[2023-08-19 18:38] LABS: Specific Gravity 1.011 (1.005-1.030); Urine Bacteria <20 /HPF (<20); Urine Bilirubin NEGATIVE (Negative); Urine Blood 2+ (Negative); Urine Clarity Extremely Turbid (Clear); Urine Color Orange (Yellow); Urine Glucose NEGATIVE (Negative); Urine Mucus Slight /HPF (None Seen); Urine Protein 2+ (Negative); Urine RBC >50 /HPF (None Seen); Urine Urobilinogen Normal (Normal); Urine WBC Clump Many /HPF (None Seen); Urine pH 5.5 (5.0-7.0)
[2023-08-19] MEDS ORDERED: ALBUTEROL 2.5 MG/3 ML NEB SOL ONE (18:57)
[2023-08-19] MEDS ORDERED: IPRATROPIUM BROM 0.5MG/2.5ML ONE (18:57)
[2023-08-19] MEDS ORDERED: AZITHROMYCIN 500 MG INJ IVPB ONE (19:41)
[2023-08-19] MEDS ORDERED: CEFTRIAXONE 2000 MG/VIAL ONE (19:41)
[2023-08-19] MEDS ORDERED: NA CHLORIDE 0.9% 250 ML ONE (19:41)
--- NOTE | 2023-08-19 20:50 | RAD REPORT ---
EXAM DESCRIPTION: CT - Chest For Pe Angio - 08/19/2023 8:33 pm CLINICAL HISTORY: SOB COMPARISON: Thorax W/ Con dated 12/14/2022; Chest For Pe Angio dated 11/17/2022; Thorax Wo Con dated ; Chest Abdomen W Con dated 08/25/2022 TECHNIQUE: Dynamically enhanced axial 3 mm thick images of the chest were obtained during administra tion of <100> mL Isovue 370 IV contrast. Coronal and oblique reconstruction images were generated and reviewed. Exam utilizes a protocol for optimal evaluation of pulmonary arterial tree. Maximum intensity projections 3D imaging was utilized All CT scans are performed using dose optimization technique as appropriate and may include automated exposure control or mA/KV adjustment according to patient size. FINDINGS: Chest Wall: No suspicious thyroid nodules or pathologic lymphadenopathy. Surgical clips in the right axilla and right breast. Mastectomy. Lungs: No acute abnormality. Pleura: No significant effusions or pneumothorax. Mediastinum/katiana: No pathologic lymphadenopathy. Pulmonary arteries/Aorta: No filling defect identified. No aortic aneurysm. Heart: No significant pericardial effusion. Normal heart size. Multi-vessel coronary disease. Upper abdomen: Reference subsequent CT of the abdomen pelvis . Bones: No acute abnormality. IMPRESSION: Negative for pulmonary embolism. No acute findings in the chest.
--- NOTE | 2023-08-19 20:57 | RAD REPORT ---
EXAM DESCRIPTION: CTAbdomen Pelvis W Contrast - 08/19/2023 8:33 pm CLINICAL HISTORY: ABD PAIN COMPARISON: Chest For Pe Angio dated 08/19/2023; Chest Abdomen W Con dated 08/25/2022 TECHNIQUE: CT of the abdomen and pelvis was performed with IV contrast. All CT scans are performed using dose optimization technique as appropriate and may include automated exposure control or mA/KV adjustment according to patient size. FINDINGS: Lower chest: No acute abnormality. Coronary artery calcifications Liver: No acute abnormality or suspicious lesions. Biliary: No biliary ductal dilatation. Stomach: No significant focal abnormality. Duodenum: No significant focal abnormality. Pancreas: No significant abnormality. 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 Kidney/ureter: No hydronephrosis. 11 mm stone in the right kidney. Too small to characterize and/or b enign appearing renal lesions are noted. These lesions are grossly similar to prior CT. Retroperitoneum: No retroperitoneal adenopathy. Vascular: No aneurysm. Atherosclerosis Bowel: No significant focal abnormality. Peritoneum: Colon containing periumbilical hernia. No bowel obstruction. Bladder: Decompressed, not well evaluated. Reproductive: No adnexal masses. Bones: Sclerotic osseous foci present within the pelvis and sacrum concerning for metastatic disease. These lesions are new from the CT from 08/25/2022. For example, there is a left iliac lesion that me asures 13 millimeters is new. Other: n/a IMPRESSION: No acute intra-abdominal or pelvic finding. Osseous lesions in the bony pelvis concerning for metastatic disease.
--- NOTE | 2023-08-19 21:07 | ER ---
Nurse's Notes [facility] Name: Maritza Jackson Age: 68 yrs Sex: Female : 1955 Arrival Date: 08/19/2023 Time: 17:10 Bed 12 Private MD: Diagnosis: COPD/ Chronic obstructive pulmonary disease with (acute) exacerbation;Hypoxemia;UTI/ Urinary tract infection, site not specified Presentation: 08/19 17:27 Chief complaint: EMS states: were toned out for hypoxia and fever per NH, she was 92% iw on RA and had 102.9 temp per NH, was placed on 2 L NC and was given 120 mg of Tylenol. Coronavirus screen: Client presents with at least one sign or symptom that may indicate coronavirus-19. Ebola Screen: Patient negative for fever greater than or equal to 101.5 degrees Fahrenheit, and additional compatible Ebola Virus Disease symptoms Patient denies exposure to infectious person. Patient denies travel to an Ebola-affected area in the 21 days before illness onset. No symptoms or risks identified at this time. 17:27 Method Of Arrival: EMS: [facility] iw 17:27 Acuity: MAYA 3 iw 17:28 Initial Sepsis Screen: Does the patient meet any 2 criteria? No. Patient's initial iw sepsis screen is negative. Does the patient have a suspected source of infection? No. Patient's initial sepsis screen is negative. Risk Assessment: Do you want to hurt yourself or someone else? Patient reports no desire to harm self or others. Onset of symptoms was August 19, 2023. Historical: - Allergies: 17:30 Pineapple; iw - PMHx: 17:30 breast cancer; Cerebrovascular accident; COPD; diabetes mellitus; Hypercholesterolemia; iw Hypertensive disorder; TIA's (Hypertensive disord); - PSHx: 17:30 mastectomy; iw Screenin:00 [facility] ED Fall Risk Assessment (Adult) History of falling in the last 3 months, pf1 including since admission No falls in past 3 months (0 pts) Confusion or Disorientation No (0 pts) Intoxicated or Sedated No (0 pts) Impaired Gait Yes (1 pt) Mobility Assist Device Used Yes (1 pt) Altered Elimination Yes (1 pt) Score/Fall Risk Level 3 or more points = High Risk Oriented to surroundings, Maintained a safe environment, Educated pt \T\ family on fall prevention, incl call for assistance when getting out of bed, Assessed \T\ reinforced patient's understanding of fall precautions, Provided non-skid footwear, Hourly rounding (assess needs \T\ fall precautionary measures) done, Used ambulatory aids as needed (educated on \T\ assisted with), Used gait belt as appropriate Implemented a Fall Risk Plan of Care, Apply high fall risk patient identification: yellow non skid footwear/ fall signage, Remained w/in arm's length of patient and in sight while toileting, Offered frequent toileting (1:1 observation), Remained with patient while ambulating. 19:00 Abuse screen: Denies threats or abuse. Nutritional screening: No deficits noted. pf1 Tuberculosis screening: No symptoms or risk factors identified. Assessment: 18:53 Reassessment: Patient appears in no apparent distress at this time. iw 19:00 General: Appears in no apparent distress. comfortable, well groomed, well developed, pf1 Behavior is calm, cooperative, appropriate for age, quiet. 19:00 General: Patient C/O fever and chills for 3 days with generalized weakness. Pain: pf1 Denies pain. Neuro: No deficits noted. Level of Consciousness is awake, alert, obeys commands, Oriented to person, place, time, situation, Weakness Patient stated left sided weakness from a history of stroke. Cardiovascular: No deficits noted. Respiratory: Airway is patent Respiratory effort is even, unlabored, Respiratory pattern is regular, symmetrical. GI: No deficits noted. No signs and/or symptoms were reported involving the gastrointestinal system. : No deficits noted. No signs and/or symptoms were reported regarding the genitourinary system. EENT: No deficits noted. No signs and/or symptoms were reported regarding the EENT system. 20:00 Reassessment: Patient appears in no apparent distress at this time. Patient and/or pf1 family updated on plan of care and expected duration. Pain level reassessed. Patient is alert, oriented x 3, equal unlabored respirations, skin warm/dry/pink. Patient states feeling better. Patient states symptoms have improved. 21:00 Reassessment: Patient appears in no apparent distress at this time. Patient and/or pf1 family updated on plan of care and expected duration. Pain level reassessed. Patient is alert, oriented x 3, equal unlabored respirations, skin warm/dry/pink. 22:00 Reassessment: Patient appears in no apparent distress at this time. Patient and/or pf1 family updated on plan of care and expected duration. Pain level reassessed. Patient is alert, oriented x 3, equal unlabored respirations, skin warm/dry/pink. Patient states symptoms have improved. 23:00 Reassessment: Patient appears in no apparent distress at this time. Patient and/or pf1 family updated on plan of care and expected duration. Pain level reassessed. Patient is alert, oriented x 3, equal unlabored respirations, skin warm/dry/pink. 23:49 Reassessment: Patient appears in no apparent distress at this time. Patient and/or pf1 family updated on plan of care and expected duration. Pain level reassessed. Patient is alert, oriented x 3, equal unlabored respirations, skin warm/dry/pink. Patient states feeling better. Patient states symptoms have improved. 08/20 00:30 Reassessment: Patient appears in no apparent distress at this time. Patient and/or pf1 family updated on plan of care and expected duration. Pain level reassessed. Patient is alert, oriented x 3, equal unlabored respirations, skin warm/dry/pink. Patient states feeling better. Patient states symptoms have improved. 00:47 Reassessment: Patient report given to [facility]. Patient being pf1 transferred to [facility] at this time. Vital Signs: 08/19 17:28 BP 99 / 55; Pulse 86; Resp 18; Temp 99.5(O); Pulse Ox 90% on R/A; iw 17:45 Pulse Ox 88% on R/A; iw 18:29 Pulse Ox 93% on 2 lpm NC; iw 19:30 BP 93 / 74; Pulse 69; Resp 16; Pulse Ox 97% on 3 lpm NC; pf1 20:30 BP 89 / 56; Pulse 64; Resp 16; Pulse Ox 99% on 3 lpm NC; pf1 21:13 BP 87 / 58; Pulse 69; Resp 15; Temp 97.8; Pulse Ox 97% on 3 lpm NC; Pain 0/10; pf1 22:00 BP 87 / 51; Pulse 62; Resp 16; Pulse Ox 97% on 3 lpm NC; pf1 22:15 BP 86 / 57; Pulse 61; Resp 14; Pulse Ox 98% on 3 lpm NC; pf1 22:30 BP 91 / 57; Pulse 67; Resp 16; Pulse Ox 96% on 3 lpm NC; pf1 22:40 BP 89 / 58; Pulse 67; Resp 16; Pulse Ox 97% on 3 lpm NC; pf1 22:45 BP 91 / 62; Pulse 71; Resp 16; Pulse Ox 97% on 3 lpm NC; pf1 23:00 BP 92 / 62; Pulse 71; Resp 16; Pulse Ox 97% on 3 lpm NC; pf1 23:15 BP 94 / 60; Pulse 72; Resp 16; Pulse Ox 96% on 3 lpm NC; pf1 23:45 BP 95 / 57; Pulse 59; Resp 15; Temp 98(A); Pulse Ox 99% on 3 lpm NC; Pain 0/10; pf1 08/20 00:30 BP 103 / 63; Pulse 63; Resp 16; Temp 98.1; Pulse Ox 99% on 3 lpm NC; pf1 21:13 Pain Scale: Adult pf1 23:45 Pain Scale: Adult pf1 ED Course: 08/19 17:17 Patient arrived in ED. iw 17:19 Radu Paredes PA is PHCP. cp 17:19 Lopez Cardozo MD is Attending Physician. cp 17:24 Shi Amaya, DEYSI is Primary Nurse. iw 17:28 Triage completed. iw 17:28 Arm band placed on. iw 17:59 Missed attempt(s): 22 gauge in left wrist. Bleeding controlled, band aid applied, iw catheter tip intact. 18:00 Basic Metabolic Panel Sent. bc6 18:00 CBC with Diff Sent. bc6 18:00 LFT's Sent. bc6 18:00 Magnesium Sent. bc6 18:00 NT PRO-BNP Sent. bc6 18:00 PT-INR Sent. bc6 18:00 Troponin HS Sent. bc6 18:00 Inserted saline lock: 20 gauge in left antecubital area, using aseptic technique. Blood bc6 collected. 18:14 XRAY Chest (1 view) In Process Unspecified. EDMS 18:23 Urinalysis W/Microscopic Sent. bc6 20:35 CT Chest For PE Angio In Process Unspecified. EDMS 20:35 CT Abd/Pelvis - IV Contrast Only In Process Unspecified. EDMS 21:09 Initiated transfer with Lidia at [facility]. rv1 21:22 Lidia called back with Hospitalist LATOSHA De Leon was doing a procedure rv1 and asked to call back. 21:36 Urine Culture Sent. bc6 21:36 Blood Culture Adult (2) Sent. bc6 22:43 Called [facility] transfer center to alert them of pt's change in status and need for ICU rv1 bed. Lidia will check capacity and call back. 23:[address] Cardona to [facility] ICU Rm 223. rv1 23:29 Called Sasha with EMS for transfer truck, was told she won't have a truck until 0130 rv1 when the other truck gets back from [place]. 23:31 Called [facility], given 1 hour ETA. rv1 23:49 No provider procedures requiring assistance completed. pf1 Administered Medications: 18:52 Drug: DuoNeb Nebulize (2.5 mg - 0.5 mg) 3 ml Nebulizer once Route: Nebulizer; iw 19:50 Follow up: Response: No adverse reaction; Marked relief of symptoms pf1 20:30 Drug: Rocephin IV 2 grams IV at calculated rate once; Given slow IV push per pharmarcy pf1 instructions Route: IV; Rate: calculated rate; Site: left antecubital; 21:12 Follow up: Response: No adverse reaction; IV Status: Completed infusion; IV Intake: [id number] 21:00 Drug: Zithromax IVPB 500 mg IVPB once over 1 hrs; mix in 250 mL NS Route: IVPB; Infused pf1 Over: 1 hrs; Site: left antecubital; 21:33 Follow up: Response: No adverse reaction pf1 22:00 Follow up: Response: No adverse reaction; Marked relief of symptoms; IV Status: pf1 Completed infusion; IV Intake: 250ml 21:23 Drug: MethylPrednisoLONE IVP 125 mg IVP once Route: IVP; Site: left antecubital; pf1 21:33 Follow up: Response: No adverse reaction pf1 21:23 Drug: NS 0.9% IV 500 ml IV at bolus once Route: IV; Rate: bolus; Site: left antecubital;pf1 21:34 Follow up: Response: No adverse reaction pf1 21:48 Follow up: IV Status: Completed infusion; IV Intake: 500ml pf1 21:56 Drug: NS 0.9% IV 500 ml IV at bolus once Route: IV; Rate: bolus; Site: left antecubital;pf1 22:30 Follow up: Response: No adverse reaction; IV Status: Completed infusion; IV Intake: pf1 500ml Intake: 21:12 IV: 10ml; Total: 10ml. pf1 21:48 IV: 500ml; Total: 510ml. pf1 22:00 IV: 250ml; Total: 760ml. pf1 22:30 IV: 500ml; Total: 1260ml. pf1 Outcome: 21:07 ER care complete, transfer ordered by . donald 08/20 01:00 Patient left the ED. pf1 Addendum: 08/25/2023 07:47 Addendum: Culture Results: Positive urine culture. faxed culture to [facility] \T\ [phone]/ patient was moved from ICU to Room 405. Signatures: Dispatcher [employer] Shi Hampton RN RN iw Radu Paredes PA PA cp Botello, Elizabeth eb Finley, Pamala, RN RN pf1 Tri Beard rv1 Angeli Pino bc6 Corrections: (The following items were deleted from the chart) 08/19 17:59 17:28 BP 99 / 55; Pulse 86bpm; Resp 18bpm; Pulse Ox 90% RA; iw gisel
--- NOTE | 2023-08-19 21:07 | EDPHYS ---
Physician Documentation [facility] Name: Maritza Jackson Age: 68 yrs Sex: Female : 1955 Arrival Date: 08/19/2023 Time: 17:10 Bed 12 Private MD: ED Physician Lopez Cardozo HPI: 08/19 17:30 This 68 yrs old Female presents to ER via EMS with complaints of Fever. cp 17:30 The patient reports fever, that was measured at 102.9 degrees Fahrenheit. Onset: The cp symptoms/episode began/occurred today. 17:30 Associated signs and symptoms: Pertinent positives: low oxygen sats today, reportedly cp 88% on RA, Pertinent negatives: abdominal pain, altered mental status, chest pain, cough, diarrhea, headache, vomiting. Severity of symptoms: in the emergency department the symptoms have improved. Historical: - Allergies: 17:30 Pineapple; iw - PMHx: 17:30 breast cancer; Cerebrovascular accident; COPD; diabetes mellitus; Hypercholesterolemia; iw Hypertensive disorder; TIA's (Hypertensive disord); - PSHx: 17:30 mastectomy; iw ROS: 17:35 Constitutional: Positive for fever, Negative for body aches, poor PO intake, cp 17:35 Eyes: Negative for injury, pain, redness, and discharge, cp 17:35 ENT: Negative for drainage from ear(s), ear pain, sore throat, difficulty swallowing, difficulty handling secretions, 17:35 Cardiovascular: Negative for chest pain, 17:35 Respiratory: Negative for cough, wheezing, 17:35 Abdomen/GI: Negative for abdominal pain, vomiting, diarrhea, constipation, 17:35 Neuro: Negative for altered mental status, dizziness, headache, 17:35 All other systems are negative, Exam: 17:45 Constitutional: The patient appears in no acute distress, alert, awake, cp non-diaphoretic, non-toxic, well developed, well nourished, obese, 17:45 Head/Face: Normocephalic, atraumatic. cp 17:45 Eyes: Periorbital structures: appear normal, Pupils: equal, round, and reactive to light and accomodation, Extraocular movements: intact throughout, Conjunctiva: normal, no exudate, no injection, Sclera: no appreciated abnormality, Lids and lashes: appear normal, bilaterally, 17:45 ENT: External ear(s): are unremarkable, Nose: is normal, Mouth: Lips: dry, Oral mucosa: moist, Posterior pharynx: Airway: no evidence of obstruction, patent, 17:45 Neck: ROM/movement: is normal, is supple, without pain, no range of motions limitations, no meningismus, no nuchal rigidity, 17:45 Chest/axilla: Inspection: normal, Palpation: is normal, no crepitus, no tenderness, 17:45 Cardiovascular: Rate: normal, Rhythm: regular, Edema: ankle edema, that is very mild, JVD: is not appreciated, 17:45 Respiratory: the patient does not display signs of respiratory distress, Respirations: labored breathing, is not present, shallow respirations, that is mild, Breath sounds: are clear throughout, no stridor, no wheezing, 17:45 Abdomen/GI: Inspection: obese Hernia: 17:45 Skin: cellulitis, is not appreciated, no rash present. 17:45 Neuro: Orientation: to person, place \T\ time. Mentation: is normal, 18:31 ECG was reviewed by the Attending Physician. cp Vital Signs: 17:28 BP 99 / 55; Pulse 86; Resp 18; Temp 99.5(O); Pulse Ox 90% on R/A; iw 17:45 Pulse Ox 88% on R/A; iw 18:29 Pulse Ox 93% on 2 lpm NC; iw 19:30 BP 93 / 74; Pulse 69; Resp 16; Pulse Ox 97% on 3 lpm NC; pf1 20:30 BP 89 / 56; Pulse 64; Resp 16; Pulse Ox 99% on 3 lpm NC; pf1 21:13 BP 87 / 58; Pulse 69; Resp 15; Temp 97.8; Pulse Ox 97% on 3 lpm NC; Pain 0/10; pf1 22:00 BP 87 / 51; Pulse 62; Resp 16; Pulse Ox 97% on 3 lpm NC; pf1 22:15 BP 86 / 57; Pulse 61; Resp 14; Pulse Ox 98% on 3 lpm NC; pf1 22:30 BP 91 / 57; Pulse 67; Resp 16; Pulse Ox 96% on 3 lpm NC; pf1 22:40 BP 89 / 58; Pulse 67; Resp 16; Pulse Ox 97% on 3 lpm NC; pf1 22:45 BP 91 / 62; Pulse 71; Resp 16; Pulse Ox 97% on 3 lpm NC; pf1 23:00 BP 92 / 62; Pulse 71; Resp 16; Pulse Ox 97% on 3 lpm NC; pf1 23:15 BP 94 / 60; Pulse 72; Resp 16; Pulse Ox 96% on 3 lpm NC; pf1 23:45 BP 95 / 57; Pulse 59; Resp 15; Temp 98(A); Pulse Ox 99% on 3 lpm NC; Pain 0/10; pf1 08/20 00:30 BP 103 / 63; Pulse 63; Resp 16; Temp 98.1; Pulse Ox 99% on 3 lpm NC; pf1 21:13 Pain Scale: Adult pf1 23:45 Pain Scale: Adult pf1 MDM: 08/19 17:19 Patient medically screened. cp 18:00 Differential diagnosis: viral Infection, bacterial infection, bronchitis, pneumonia UTI.cp 21:00 Data reviewed: vital signs, nurses notes, lab test result(s), EKG, radiologic studies, cp CT scan, plain films, I have discussed the patient's presentation/case with the attending Emergency Department Physician; and as a result, I will transfer patient for admission due to this facility being at capacity. 21:00 I considered the following discharge prescriptions or medication management in the emergency department Medications were administered in the Emergency Department. See MAR. Independent interpretation of the following test(s) in the Emergency Department EKG: See my EKG interpretation above. Care significantly affected by the following chronic conditions: Diabetes, Hypertension, Chronic Obstructive Pulmonary Disease. 08/19 17:23 Order name: Basic Metabolic Panel; Complete Time: 18:47 cp 08/19 18:47 Interpretation: Normal except: GLUC 113; GFR 60. cp 08/19 17:23 Order name: CBC with Diff; Complete Time: 18:28 cp 08/19 18:28 Interpretation: Normal except: WBC 18.20; HGB 11.9; HCT 35.6; PLT 411; NEUT A 12.4; MNA cp 1.9. 08/19 17:23 Order name: LFT's; Complete Time: 18:47 cp 08/19 18:47 Interpretation: Normal except: ALK 124; ALB 2.9; GLOB 5.0; A/G 0.6. cp 08/19 17:23 Order name: Magnesium; Complete Time: 18:47 cp 08/19 17:23 Order name: NT PRO-BNP; Complete Time: 18:47 cp 08/19 18:47 Interpretation: Abnormal: NT PRO-BNP 949. cp 08/19 17:23 Order name: PT-INR; Complete Time: 18:28 cp 08/19 17:23 Order name: Troponin HS; Complete Time: 18:47 cp 08/19 17:23 Order name: COVID-19 SARS RT PCR; Complete Time: 18:47 cp 08/19 17:23 Order name: Influenza Screen (a \T\ B); Complete Time: 20:10 cp 08/19 20:10 Interpretation: Reviewed. cp 08/19 17:23 Order name: Urinalysis W/Microscopic; Complete Time: 18:54 cp 08/19 18:54 Interpretation: Reviewed. 08/19 18:05 Order name: Glucose, Ancillary Testing; Complete Time: 18:28 EDMS 08/19 18:48 Order name: Lactate w/ 2H reflex if indic.; Complete Time: 20:54 cp 08/19 20:54 Interpretation: Reviewed. 08/19 18:48 Order name: Blood Culture Adult (2) cp 08/19 18:54 Order name: Urine Culture EDMS 08/19 17:23 Order name: XRAY Chest (1 view); Complete Time: 18:28 cp 08/19 18:48 Order name: CT Chest For PE Angio; Complete Time: 20:54 08/19 18:54 Order name: CT Abd/Pelvis - IV Contrast Only; Complete Time: 21:15 cp 08/19 21:16 Interpretation: Report reviewed. 08/19 17:23 Order name: EKG; Complete Time: 17:24 cp 08/19 17:23 Order name: Cardiac monitoring; Complete Time: 21:36 cp 08/19 17:23 Order name: EKG - Nurse/Tech; Complete Time: 18:23 cp 08/19 17:23 Order name: IV Saline Lock; Complete Time: 18:00 cp 08/19 17:23 Order name: Labs collected and sent; Complete Time: 18:00 cp 08/19 17:23 Order name: O2 Per Protocol; Complete Time: 18:00 cp 08/19 17:23 Order name: O2 Sat Monitoring; Complete Time: 18:00 cp 08/19 18:49 Order name: Cath; Complete Time: 18:52 cp 08/19 20:11 Order name: Vital Signs: please update to include blood pressure; Complete Time: 21:12 cp EC:31 Rate is 62 beats/min. Rhythm is regular. NH interval is normal. QRS interval is normal. cp QT interval is normal. T waves are Inverted in lead aVR. Interpreted by me. Reviewed by me. Administered Medications: 18:52 Drug: DuoNeb Nebulize (2.5 mg - 0.5 mg) 3 ml Nebulizer once Route: Nebulizer; iw 19:50 Follow up: Response: No adverse reaction; Marked relief of symptoms pf1 20:30 Drug: Rocephin IV 2 grams IV at calculated rate once; Given slow IV push per pharmarcy pf1 instructions Route: IV; Rate: calculated rate; Site: left antecubital; 21:12 Follow up: Response: No adverse reaction; IV Status: Completed infusion; IV Intake: [id number] 21:00 Drug: Zithromax IVPB 500 mg IVPB once over 1 hrs; mix in 250 mL NS Route: IVPB; Infused pf1 Over: 1 hrs; Site: left antecubital; 21:33 Follow up: Response: No adverse reaction pf1 22:00 Follow up: Response: No adverse reaction; Marked relief of symptoms; IV Status: pf1 Completed infusion; IV Intake: 250ml 21:23 Drug: MethylPrednisoLONE IVP 125 mg IVP once Route: IVP; Site: left antecubital; pf1 21:33 Follow up: Response: No adverse reaction pf1 21:23 Drug: NS 0.9% IV 500 ml IV at bolus once Route: IV; Rate: bolus; Site: left antecubital;pf1 21:34 Follow up: Response: No adverse reaction pf1 21:48 Follow up: IV Status: Completed infusion; IV Intake: 500ml pf1 21:56 Drug: NS 0.9% IV 500 ml IV at bolus once Route: IV; Rate: bolus; Site: left antecubital;pf1 22:30 Follow up: Response: No adverse reaction; IV Status: Completed infusion; IV Intake: pf1 500ml Disposition Summary: 08/19/23 21:07 Transfer Ordered Notes: Transfer Location: [facility] cp Reason: Higher level of care cp Condition: Stable cp Problem: new cp Symptoms: have improved cp Accepting Physician: DR Traylor(08/20/23 01:00) pf1 Diagnosis - COPD/ Chronic obstructive pulmonary disease with (acute) exacerbation cp - Hypoxemia cp - UTI/ Urinary tract infection, site not specified cp Forms: - Medication Reconciliation Form cp - SBAR form cp Addendum: 08/21/2023 11:01 I was immediately available for consultation during this patient's visit. I did not e c2 personally see the patient or guide the patient's care. Signatures: Dispatcher [employer] Shi Hampton RN RN iw Radu Paredes PA PA cp Finley, Pamala, RN RN pf1 Tri Beard rv1 Lopez Cardozo MD MD ec2 Corrections: (The following items were deleted from the chart) 08/19 21:48 21:07 doctor cp rv1 23:37 21:48 doctor rv1 cp 08/20 01:00 08/19 23:37 DR Traylor cp pf1
[2023-08-19] MEDS ORDERED: METHYLPREDNISOLONE 125 MG INJ ONE (21:28)
[2023-08-19] MEDS ORDERED: NA CHLORIDE 0.9% 500 ML ONE ×2 (21:32→22:04)
[2023-08-20 01:38] VITALS: O2SAT 99
[2023-08-20 01:40] VITALS: BP 103/63; TEMP 98.1
--- NOTE | 2023-08-22 07:57 | EKG ---
Test Date: 2023-08-19 Test Time: 18:24:29 Part Maker: CRISTI MEASUREMENT RESULTS: Intervals: Rate: 62 IA: 148 QRSD: 100 QT: 410 QTc: 416 [place]: P: 4 IA: 148 QRS: 45 T: 38 INTERPRETIVE STATEMENTS: Normal sinus rhythm Normal ECG Compared to ECG 08/03/2023 19:14:32 No significant changes Electronically Signed On 08-22-23 07:52:30 CDT by Oziel Levin
== END 2023-08-20 01:00 | disposition short-term general hospital (02) ==
LOC: ER 17:10
DX: J44.1 Chronic obstructive pulmonary disease with (acute) exacerbation (principal); R09.02 Hypoxemia; N39.0 Urinary tract infection, site not specified; I10 Essential (primary) hypertension; Z11.52 Encounter for screening for COVID-19; Z85.3 Personal history of malignant neoplasm of breast; Z91.018 Allergy to other foods; Z86.73 Personal history of transient ischemic attack (TIA), and cerebral infarction without residual deficits
CPT/HCPCS: 96365; 93005; 87040 ×2; 87088; 85025; 81001; 87086; 80048; 36415; 83735; 85610; 82947; 80076; 83605; 87077; 87186; 84484; 83880; 87635; 87804 ×2; 71275; 74177; 71045; 94640; 96375; 99285; Q9967; J7613; J7644; J2930; J0696; J7050; J7040 ×2

== ENCOUNTER 2025-05-15 16:49 | Inpatient (IN) | payer OTHER ==
--- OUTSIDE RECORDS SUMMARY | 2025-05-15 16:51 | XMS REPORT | Clinical Summary ---
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
[2025-05-15] MEDS ORDERED: NA CHLORIDE 0.9% 500 ML ONE (17:15)
[2025-05-15] MEDS ORDERED: METHYLPREDNISOLONE 125 MG INJ ONE (17:15)
[2025-05-15] MEDS ORDERED: IPRATROPIUM BROM 0.5MG/2.5ML ONE (17:15)
[2025-05-15] MEDS ORDERED: LEVALBUTEROL 1.25 MG/3 ML NEB ONE (17:15)
[2025-05-15] MEDS ORDERED: MAGNESIUM SULFATE 1 gm IVPB 1 GM/100 ML BAG IV ONE (17:16)
[2025-05-15 18:03] LABS: Absolute Lymphocytes (CBC) 2.6 K/uL (0.7-4.9); Hematocrit 46.1 % (36.0-45.0); Hemoglobin 15.3 g/dL (12.0-15.0); MCH 29.8 pg (27.0-35.0); MCHC 33.1 g/dL (32.0-36.0); MCV 89.9 fL (80-100); MPV 9.7 fL (7.6-11.3); Nucleated RBC Absolute Count 0.0 (0-0); Nucleated Red Blood Cells % 0.2 % (0-0); RBC Red Blood Cell Count 5.13 M/uL (3.86-4.86); White Blood Count 11.00 thou/uL (4.3-10.9)
[2025-05-15 18:16] LABS: PT Prothrombin Time 12.9 SECONDS (10-13.0); PTT, Activated Partial Thromb 33.6 SECONDS (27.2-37.4); Protime INR 1.15
[2025-05-15 18:35] LABS: ALT/SGPT 46.0 U/L (13-56); AST/SGOT 127.0 U/L (15-37); Albumin 3.0 g/dL (3.4-5.0); Albumin/Globulin Ratio 0.7 (1.1-1.8); Alkaline Phosphatase 108.0 U/L (45-117); Anion Gap 10.6 mEq/L (5.0-15.0); BUN Blood Urea Nitrogen 28.0 mg/dL (7-18); Globulin 4.6 g/dL (2.3-3.5); Glucose Level 57.0 mg/dL (74-106); NT PRO-BNP 210.0 pg/mL (<125); Potassium 4.6 mEq/L (3.5-5.1); Troponin High Sensitivity 24.0 pg/mL (<58.9)
[2025-05-15 18:36] LABS: Influenza A Ag Negative; Influenza B Ag Negative; SARS-CoV-2 Antigen Rapid Res Negative (Negative)
--- NOTE | 2025-05-15 18:54 | RAD REPORT ---
EXAM: Chest Single View HISTORY: 70 years Female DYSPNEA COMPARISON: 12/12/2022 FINDINGS: LUNGS/PLEURA: Diffuse prominence of the pulmonary interstitium which is nonspecific. No consolidative airspace identified. CARDIAC/MEDIASTINUM: Stable size and configuration. UPPER ABDOMEN: No significant abnormality. BONES: No acute abnormality. LINES/TUBES/OTHER: Surgical clips in right axilla. IMPRESSION: Nonspecific prominence of the pulmonary interstitium. This could reflect mild interstitial edema.
--- NOTE | 2025-05-15 19:01 | EDPHYS ---
Physician Documentation [facility] Name: Maritza Jackson Age: 70 yrs Sex: Female : 1955 Arrival Date: 05/15/2025 Time: 16:49 Bed 6 Private MD: ED Physician Sacha Mckeon HPI: 05/15 17:13 This 70 yrs old Female presents to ER via EMS with complaints of Shortness Of rn Breath. 17:13 Patient reports feeling sick over the last few days, fever, chills, shortness of breath rn with cough.. Historical: - Allergies: 16:52 Pineapple; bp - PMHx: 16:52 breast cancer; Cerebrovascular accident; COPD; diabetes mellitus; Hypercholesterolemia; bp Hypertensive disorder; TIA's (Hypertensive disord); - PSHx: 16:52 mastectomy; bp - Immunization history:: Adult Immunizations up to date. - Infectious Disease History:: Denies. - Social history:: Smoking status: Patient denies any tobacco usage or history of. - Family history:: not pertinent. - Hospitalizations: : No recent hospitalization is reported. ROS: 17:13 Constitutional: Positive for fever and chills Cardiovascular: Negative for chest pain, rn palpitations, and edema, Respiratory: Positive for cough and shortness of breath Abdomen/GI: Negative for abdominal pain, nausea, vomiting, diarrhea, and constipation, MS/Extremity: Negative for injury and deformity, Skin: Negative for injury, rash, and discoloration, Neuro: Positive for generalized weakness and malaise Exam: 17:13 ECG was reviewed by the Attending Physician. rn 17:13 Constitutional: This is a well developed, well nourished patient who is awake, alert, rn moderate tachypnea ENT: Dry mucous membranes, no stridor Cardiovascular: Regular rate and rhythm. No pulse deficits. Respiratory: Moderate tachypnea, diminished at bases, wheezing throughout Abdomen/GI: Soft, nontender Neuro: Awake and alert, GCS 15 Vital Signs: 16:50 BP 163 / 82; Pulse 97; Resp 24; Temp 98.2; Pulse Ox 97% on 10 lpm Non-rebreather mask; bp 18:31 BP 119 / 59; Pulse 104; Resp 20; Pulse Ox 94% ; bp 19:29 BP 113 / 66; Pulse 84; Resp 22; Pulse Ox 90% on NC; km10 MDM: 16:51 Medical Screening Exam initiated rn 19:00 Differential diagnosis: Chronic Obstructive Pulmonary Disease pneumonia, Pneumothorax rn pulmonary edema. Data reviewed: vital signs, nurses notes, lab test result(s), EKG, radiologic studies, plain films, and as a result, I will admit patient. Consideration of Admission/Observation Patient was admitted/placed on observation. Escalation of care including admission/observation considered. Counseling: I had a detailed discussion with the patient and/or guardian regarding the historical points, exam findings, and any diagnostic results supporting the discharge/admit diagnosis, lab results, radiology results, the need for further work-up and treatment in the hospital. Response to treatment: the patient's symptoms have mildly improved after treatment, and as a result, I will admit patient. 19:46 ED course: Chest x-ray images negative for lobar pneumonia or pneumothorax per my rn interpretation.. 05/15 16:52 Order name: BNP; Complete Time: 18:55 05/15 16:52 Order name: Blood Culture Adult (2) 05/15 16:52 Order name: CBC with Diff; Complete Time: 18:55 05/15 16:52 Order name: CMP; Complete Time: 18:55 05/15 16:52 Order name: Lactate w/ 2H reflex if indic.; Complete Time: 18:55 05/15 16:52 Order name: Protime (+inr); Complete Time: 18:55 05/15 16:52 Order name: Ptt, Activated; Complete Time: 18:55 05/15 16:52 Order name: Troponin HS; Complete Time: 18:55 05/15 16:52 Order name: COVID-19 Ag + Flu A+B Ag; Complete Time: 18:55 05/15 19:31 Order name: CBC with Automated Diff EDGA 05/15 19:31 Order name: CBC with Automated Diff EDMS 05/15 19:31 Order name: Comprehensive Metabolic Panel [facility]GA 05/15 19:31 Order name: Comprehensive Metabolic Panel [facility] 05/15 16:52 Order name: Chest Single View XRAY; Complete Time: 18:55 05/15 16:52 Order name: Accucheck; Complete Time: 16:56 05/15 16:52 Order name: Cardiac monitoring; Complete Time: 16:56 rn 05/15 16:52 Order name: EKG - Nurse/Tech; Complete Time: 16: rn 05/15 16:52 Order name: IV Saline Lock - Large Bore; Complete Time: 17: rn 05/15 16:52 Order name: Labs collected and sent; Complete Time: 17: rn 05/15 16:52 Order name: O2 Per Protocol; Complete Time: 16: rn 05/15 16:52 Order name: O2 Sat Monitoring; Complete Time: 16: rn 05/15 16:52 Order name: Vital Signs; Complete Time: 16:56 rn EC:13 Rate is 97 beats/min. Rhythm is regular. QRS [place] is Normal. MO interval is normal. QRS rn interval is normal. QT interval is normal. No Q waves. T waves are Normal. No ST changes noted. Clinical impression: Normal ECG. Interpreted by me. Reviewed by me. Administered Medications: 17:45 Drug: Levalbuterol Inhalation 1.25 mg Inhalation once Route: Inhalation; bp 19:12 Follow up: Response: No adverse reaction [facility] 17:45 Drug: Levalbuterol Inhalation 1.25 mg Inhalation once Route: Inhalation; bp 19:12 Follow up: Response: No adverse reaction 17:45 Drug: Ipratropium Inhalation Aerosol 0.5 mg Inhalation once Route: Inhalation; bp 19:12 Follow up: Response: No adverse reaction 17:45 Drug: Magnesium Sulfate IVPB 1 grams IVPB once over 1 hrs Route: IVPB; Infused Over: 1 bp hrs; Site: left wrist; 19:12 Follow up: Response: No adverse reaction; IV Status: Completed infusion [facility] 17:45 Drug: NS 0.9% IV 500 ml 500 ml IV at 1 bolus once; to be given as a bolus over 30 bp minutes Volume: 500 ml; Route: IV; Rate: 1 bolus; Site: left wrist; 19:12 Follow up: Response: No adverse reaction; IV Status: Completed infusion [facility] 17:45 Drug: MethylPrednisoLONE IVP 125 mg IVP once Route: IVP; Site: left wrist; bp 19:11 Follow up: Response: No adverse reaction [facility] 19:05 Drug: Rocephin IV 1 grams IV at calculated rate once; Given slow IV push per pharmacy [facility] instructions Route: IV; Rate: calculated rate; Site: left wrist; 19:32 Follow up: Response: No adverse reaction; IV Status: Completed infusion km10 19:12 Drug: Zithromax IVPB 500 mg IVPB once over 1 hrs; mix in 250 mL NS Route: IVPB; Infused km10 Over: 1 hrs; Site: left wrist; Disposition Summary: 05/15/25 19:00 Hospitalization Ordered Notes: Hospitalization Status: Inpatient Admission rn Provider: Manjeet Wheat rn Location: Telemetry/MedSurg (Inpatient) rn Condition: Stable rn Problem: new rn Symptoms: have improved rn Bed/Room Type: Standard rn Room Assignment: 229(05/15/25 19:59) vk Diagnosis - Pneumonia, unspecified organism rn - COPD/ Chronic obstructive pulmonary disease with acute lower respiratory infection rn Forms: - Medication Reconciliation Form rn - SBAR form rn - Leadership Thank You Letter rn Signatures: Dispatcher [employer] EDMS Sacha Mckeon MD MD rn Peltier, Brian RN Billie Manuel Kirsten, RN RN km10 Corrections: (The following items were deleted from the chart) 16:53 16:53 PROBNP+C.LAB.BRZ ordered. EDMS EDMS 16:53 16:53 BLOOD CULTURE*+BA.LAB.BRZ ordered. EDMS EDMS 16:53 16:53 CBC+H.LAB.BRZ ordered. EDMS EDMS 16:53 16:53 COMPREHENSIVE METABOLIC PANEL+C.LAB.BRZ ordered. EDMS EDMS 16:53 16:53 LACTATE+C.LAB.BRZ ordered. EDMS EDMS 16:53 16:53 PROTIME (+INR)+COAG.LAB.BRZ ordered. EDMS EDMS 16:53 16:53 PTT, ACTIVATED+COAG.LAB.BRZ ordered. EDMS EDMS 16:53 16:53 Troponin High Sensitivity+C.LAB.BRZ ordered. EDMS EDMS 16:53 16:53 COVID-19 Ag + Flu A+B Ag+I.LAB.BRZ ordered. EDMS EDMS 16:53 16:53 Chest Single View+RAD.RAD.BRZ ordered. EDMS EDMS 19:59 19:00 rn vk
--- NOTE | 2025-05-15 19:01 | ER ---
Nurse's Notes [facility] Name: Maritza Jackson Age: 70 yrs Sex: Female : 1955 Arrival Date: 05/15/2025 Time: 16:49 Bed 6 Private MD: Diagnosis: Pneumonia, unspecified organism;COPD/ Chronic obstructive pulmonary disease with acute lower respiratory infection Presentation: 05/15 16:50 Chief complaint: EMS states: 3 DAYS SHORTNESS OF BREATH AND WHEEZING. Coronavirus bp screen: cough unrelated to allergies. Ebola Screen: No symptoms or risks identified at this time. Initial Sepsis Screen: Does the patient meet any 2 criteria? RR > 20 per min. No. Patient's initial sepsis screen is negative. Does the patient have a suspected source of infection? No. Patient's initial sepsis screen is negative. Risk Assessment: Do you want to hurt yourself or someone else? Patient reports no desire to harm self or others. Onset of symptoms is unknown. Care prior to arrival: Glucose check: 62. 16:50 Method Of Arrival: EMS: [facility] bp 16:50 Acuity: MAYA 3 bp Triage Assessment: 16:52 General: Appears in no apparent distress. ill, obese, Behavior is calm, cooperative, bp appropriate for age. Pain: Denies pain. EENT: No deficits noted. Neuro: Level of Consciousness is awake, alert, obeys commands, Oriented to Appropriate for age. Cardiovascular: Rhythm is sinus rhythm. Respiratory: Reports shortness of breath Breath sounds with wheezes bilaterally. Onset: The symptoms/episode began/occurred at an unknown time. the patient has moderate shortness of breath. GI: No signs and/or symptoms were reported involving the gastrointestinal system. : No signs and/or symptoms were reported regarding the genitourinary system. Derm: No deficits noted. Musculoskeletal: No deficits noted. Historical: - Allergies: 16:52 Pineapple; bp - PMHx: 16:52 breast cancer; Cerebrovascular accident; COPD; diabetes mellitus; Hypercholesterolemia; bp Hypertensive disorder; TIA's (Hypertensive disord); - PSHx: 16:52 mastectomy; bp - Immunization history:: Adult Immunizations up to date. - Infectious Disease History:: Denies. - Social history:: Smoking status: Patient denies any tobacco usage or history of. - Family history:: not pertinent. - Hospitalizations: : No recent hospitalization is reported. Screenin:49 Abuse screen: Denies threats or abuse. Nutritional screening: No deficits noted. ar8 Tuberculosis screening: No symptoms or risk factors identified. Assessment: 17:00 General: Appears uncomfortable, Behavior is calm, cooperative. Pain: Denies pain. ar8 17:00 Neuro: No deficits noted. Level of Consciousness is awake, alert, obeys commands, ar8 Oriented to person, place, time, situation. Cardiovascular: No deficits noted. Respiratory: Airway is patent Respiratory effort is labored, Respiratory pattern is tachypnea Breath sounds with wheezes bilaterally. in right upper lobe and left upper lobe. 18:04 Respiratory: Airway is patent Respiratory effort is unlabored, Respiratory pattern is ar8 tachypnea. 18:31 Reassessment: PT REFUSING TO KEEP O2 ON, USING JUWAN WITHOUT DIFFICULTY. bp 19:29 Reassessment: Patient appears in no apparent distress at this time. Patient and/or km10 family updated on plan of care and expected duration. Pain level reassessed. pt SPO2 range from 84% - 91% at this time, Attempted to reposition pt but she states she must remain flat on her left side, and refuses to sit up to assist with increase SPO2 level. Educated to keep nasal canula in place. Vital Signs: 16:50 BP 163 / 82; Pulse 97; Resp 24; Temp 98.2; Pulse Ox 97% on 10 lpm Non-rebreather mask; bp 18:31 BP 119 / 59; Pulse 104; Resp 20; Pulse Ox 94% ; bp 19:29 BP 113 / 66; Pulse 84; Resp 22; Pulse Ox 90% on NC; km10 ED Course: 16:50 Patient arrived in ED. bp 16:51 Sacha Mckeon MD is Attending Physician. rn 16:52 Triage completed. bp 16:52 Arm band placed on. bp 16:54 Alexander Granados, RN is Primary Nurse. bp 17:00 Bed in low position. Call light in reach. Side rails up X2. ar8 17:00 Provided Education on: Plan of care. ar8 17:03 EKG done, by ED staff, reviewed by Sacha Mckeon MD. ar8 17:39 Chest Single View XRAY In Process Unspecified. EDMS 17:45 Inserted saline lock: 22 gauge in left wrist, using aseptic technique. Blood collected. bp Flushed with 10 mL NS. 17:50 Initial lab(s) drawn, by me, sent to lab. First set of blood cultures drawn by me, bp Second set of blood cultures drawn by me. 19:00 Manjeet Wheat MD is Hospitalizing Provider. rn 20:45 No provider procedures requiring assistance completed. km10 Administered Medications: 17:45 Drug: Levalbuterol Inhalation 1.25 mg Inhalation once Route: Inhalation; bp 19:12 Follow up: Response: No adverse reaction km10 17:45 Drug: Levalbuterol Inhalation 1.25 mg Inhalation once Route: Inhalation; bp 19:12 Follow up: Response: No adverse reaction km10 17:45 Drug: Ipratropium Inhalation Aerosol 0.5 mg Inhalation once Route: Inhalation; bp 19:12 Follow up: Response: No adverse reaction 10 17:45 Drug: Magnesium Sulfate IVPB 1 grams IVPB once over 1 hrs Route: IVPB; Infused Over: 1 bp hrs; Site: left wrist; 19:12 Follow up: Response: No adverse reaction; IV Status: Completed infusion 10 17:45 Drug: NS 0.9% IV 500 ml 500 ml IV at 1 bolus once; to be given as a bolus over 30 bp minutes Volume: 500 ml; Route: IV; Rate: 1 bolus; Site: left wrist; 19:12 Follow up: Response: No adverse reaction; IV Status: Completed infusion 10 17:45 Drug: MethylPrednisoLONE IVP 125 mg IVP once Route: IVP; Site: left wrist; bp 19:11 Follow up: Response: No adverse reaction [facility] 19:05 Drug: Rocephin IV 1 grams IV at calculated rate once; Given slow IV push per pharmacy km10 instructions Route: IV; Rate: calculated rate; Site: left wrist; 19:32 Follow up: Response: No adverse reaction; IV Status: Completed infusion km10 19:12 Drug: Zithromax IVPB 500 mg IVPB once over 1 hrs; mix in 250 mL NS Route: IVPB; Infused km10 Over: 1 hrs; Site: left wrist; Medication: 17:49 VIS not applicable for this client. ar8 Outcome: 19:00 Decision to Hospitalize by Provider. rn 20:44 Admitted to Med/surg accompanied by tech, room 229, with oxygen, km10 20:44 Condition: stable 20:44 Instructed on the need for admit, 20:45 Patient left the ED. km10 Signatures: Dispatcher [employer] EDMS Sacha Mckeon MD MD rn Peltier, Brian RN RN Ashley Arguelles RN RN km10 Rodriguez, Andrea, RN RN ar8 Corrections: (The following items were deleted from the chart) 19:32 19:29 Reassessment: Patient appears in no apparent distress at this time. Patient km10 and/or family updated on plan of care and expected duration. Pain level reassessed. pt SPO2 range from 84% - 91% at this time, pt states she must remain flat on her left side, and refuses to sit up to assist with increase SPO2 level. Educated to keep nasal canula in place km10
[2025-05-15] MEDS ORDERED: CEFTRIAXONE 1000 MG/VIAL ONE (19:03)
[2025-05-15] MEDS ORDERED: NA CHLORIDE 0.9% 250 ML ONE (19:03)
[2025-05-15] MEDS ORDERED: AZITHROMYCIN 500 MG INJ IVPB ONE (19:03)
[2025-05-15] MEDS ORDERED: ONDANSETRON 4 MG/2 ML VIAL IV PRN (19:25)
--- NOTE | 2025-05-15 19:25 | P.HP ---
Certification for Inpatient Patient admitted to: Inpatient With expected LOS: >2 Midnights Practitioner: I am a practitioner with admitting privileges, knowledge of patient current condition, hospital course, and medical plan of care. Services: Services provided to patient in accordance with Admission requirements found in Title 42 Section 412.3 of the Code of Federal Regulations Patient History Date of Service: 05/15/25 Reason for admission: SOB History of Present Illness: 70 yrs old Female with past medical history of hypertension, diabetes, hyperlipidemia, history of CVA, history of breast cancer s/p mastectomy and COPD who was brought to ER with shortness of breath. Patient has been short of breath and feeling sick for the last few days associated with subjective fever and chills. Cough is productive with mucoid expectoration. Denies any hemoptysis. No nausea vomiting or diarrhea. No sick contacts. Shortness of breath is progressively getting worse and was brought to ER. Patient was assessed in the ER and is admitted for further management of pneumonitis with COPD exacerbation Allergies pineapple Allergy (Verified 05/03/22 09:00) Anaphylaxis Home medications list reviewed: Yes Home Medications: Atorvastatin Calcium [Lipitor] 40 mg PO BEDTIME #30 tab 07/21/21 Clopidogrel Bisulfate [Plavix*] 75 mg PO DAILY #30 tablet 07/21/21 Aspirin 81 mg PO DAILY #30 tab.chew 05/13/22 Magnesium Oxide 400 mg PO BID 06/14/22 Gabapentin 300 mg PO BID 11/03/22 Pantoprazole Sodium 40 mg PO DAILY 11/03/22 Anastrozole 1 mg PO DAILY 12/23/22 Metformin ER [Glucophage ER*] 500 mg PO BID 12/23/22 Codeine/APAP [Tylenol #3*] 1 tab PO Q4HP PRN 01/09/23 Ferrous Sulfate [Ferrous Sulfate*] 325 mg PO DAILY #30 tab 01/10/23 Glimepiride [Amaryl*] 2 mg PO DAILY WITH BREAKFAST #30 tab 01/10/23 Zinc Sulfate [Zinc Sulfate*] 220 mg PO DAILY #30 cap 01/10/23 - Past Medical/Surgical History Diabetic: Yes Past Medical History: Reviewed- Non-Contributory -: HTN -: NIDDM -: TIAs -: tobacco abuse -: CVAs -: Breast Cancer Past Surgical History: Reviewed- Non-Contributory -: Bilateral mastectomy -: appendectomy -: splenectomy Psychosocial/ Personal History: Patient lives at home with her daughters. - Family History Family History: Reviewed- Non-Contributory - Family History Father -: Heart disease Notes: Patient was adopted - Social History Smoking Status: Former smoker Alcohol use: No CD- Drugs: No Caffeine use: Yes Review of Systems 10-point ROS is otherwise unremarkable Other: Constitutional: Reports: generalized weakness. Skin: Denies: rash. Allergy/Immun: Denies: rhinorrhea, sneezing. Eyes: Denies: visual loss/blurred. ENT: Denies: earache, nasal congestion. Respiratory: Denies: non productive cough. Cardiovascular: Denies: chest pain, palpitations. GI: Denies: diarrhea, nausea. : Denies: dysuria. Musculoskeletal: Reports: arthritis. Denies: extremity pain. Heme: Denies: bleeding. Endocrine: Denies: polydipsia. Neuro: Reports: dizziness, gait problem, lightheaded, spinning sensation. Psych: Reports: anxiety. All systems rev & neg: except as noted Physical Examination - Vital Signs Temperature: 98.2 F Blood Pressure: 163/82 Pulse: 97 Respirations: 24 Pulse Ox (%): 94 - Physical Exam General: Alert, Oriented x3, Mild distress HEENT: Atraumatic, Normocephalic Neck: Supple Respiratory: Diminished, Crackles/rales, Expiratory wheezes Cardiovascular: Regular rate/rhythm, Normal S1 S2 Capillary refill: <2 Seconds Gastrointestinal: Normal bowel sounds, Soft and benign, W/out hepatomegaly Musculoskeletal: No clubbing, No swelling Integumentary: No rashes Neurological: Other (Alert awake nonfocal) Lymphatics: No axilla or inguinal lymphadenopathy - Studies Laboratory Data (last 24 hrs) 05/15/25 05/15/25 05/15/25 17:50 17:50 17:50 WBC 11.00 H Hgb 15.3 H Hct 46.1 H Plt Count 313 PT 12.9 INR 1.15 APTT 33.6 Sodium 132 L Potassium 4.6 BUN 28 H Creatinine 1.42 H Glucose 57 L Total Bilirubin 0.4 AST 127 H ALT 46 Alkaline Phosphatase 108 Assessment and Plan - Plan COPD exacerbation Monitor closely on telemetry Started on bronchodilators Oxygen supplementation Steroids added Chest x-ray findings noted Started on empirical antibiotic to cover for pneumonitis Hypertension Antihypertensives titrated Continue home medications and titrate as needed Hyperlipidemia Continue statin CKD stage II Monitor renal parameters Electrolytes monitor and replace accordingly Diabetes Insulin sliding scale Accu-Chek before every meal and at bedtime Elevated BNP We will get an echocardiogram GI/DVT prophylaxis Advanced directive full code Discharge Plan: Home Plan to discharge in: 48 Hours - Advance Directives Does patient have a Living Will: No Does patient have a Durable POA for Healthcare: No - Code Status/Comfort Care Code Status: Full Code Time Spent Managing Pts Care (In Minutes): 48
[2025-05-15] MEDS: IPRATROPIUM BROM 0.5MG/2.5ML NEB PRN (21:27)
[2025-05-15] MEDS: ALBUTEROL 2.5 MG/3 ML NEB SOL NEB PRN (21:27)
[2025-05-15 22:06] VITALS: BMI 44.9
[2025-05-16] MEDS: METHYLPREDNISOLONE 40 MG INJ IV SCH (06:31)
[2025-05-16 07:32] LABS: Absolute Lymphocytes (CBC) 2.2 K/uL (0.7-4.9); Hematocrit 44.7 % (36.0-45.0); Hemoglobin 14.6 g/dL (12.0-15.0); MCH 29.7 pg (27.0-35.0); MCHC 32.7 g/dL (32.0-36.0); MCV 91.0 fL (80-100); MPV 9.3 fL (7.6-11.3); Nucleated RBC Absolute Count 0.1 (0-0); Nucleated Red Blood Cells % 0.4 % (0-0); RBC Red Blood Cell Count 4.91 M/uL (3.86-4.86); White Blood Count 11.60 thou/uL (4.3-10.9)
[2025-05-16] MEDS: PNEUMOCOCCAL VACCINE 0.5 ML IMVAC ONE (07:49)
[2025-05-16 07:51] LABS: ALT/SGPT 37.0 U/L (13-56); AST/SGOT 87.0 U/L (15-37); Albumin 2.8 g/dL (3.4-5.0); Albumin/Globulin Ratio 0.7 (1.1-1.8); Alkaline Phosphatase 93.0 U/L (45-117); Anion Gap 8.0 mEq/L (5.0-15.0); BUN Blood Urea Nitrogen 24.0 mg/dL (7-18); Globulin 4.3 g/dL (2.3-3.5); Glucose Level 323.0 mg/dL (74-106); Potassium 6.0 mEq/L (3.5-5.1)
[2025-05-16] MEDS: CEFTRIAXONE 1,000 MG in NA CHLORIDE 0.9% 50 ML IVPB SCH (10:31)
[2025-05-16] MEDS: ENOXAPARIN 40 MG/0.4 ML SQ SCH (10:31)
[2025-05-16] MEDS: AZITHROMYCIN IV 500 MG in NA CHLORIDE 0.9% 250 ML IVPB SCH (10:32)
[2025-05-16] MEDS: SODIUM ZIRCONIUM CYCLOSILICATE 10 GM/PKT PO ONE (13:18)
[2025-05-16] MEDS: INSULIN REGULAR (HUMAN) 100 UNIT/ML IV SCH (13:19)
--- NOTE | 2025-05-16 14:44 | P.PN ---
Subjective Date of Service: 05/16/25 Chief Complaint: SOB Patient states his shortness of breath is improved compared to yesterday. She reports intermittent cough. Patient is now requiring high flow oxygen. No recorded fever. Physical Examination - Vital Signs Temperature: 97.8 F Blood Pressure: 149/72 Pulse: 92 Respirations: 20 Pulse Ox (%): 93 - Studies Laboratory Data (last 24 hrs) 05/15/25 05/15/25 05/15/25 17:50 17:50 17:50 WBC 11.00 H Hgb 15.3 H Hct 46.1 H Plt Count 313 PT 12.9 INR 1.15 APTT 33.6 Sodium 132 L Potassium 4.6 BUN 28 H Creatinine 1.42 H Glucose 57 L Total Bilirubin 0.4 AST 127 H ALT 46 Alkaline Phosphatase 108 Assessment And Plan - Plan Physical examination General: Alert and oriented x 3, NAD, HEENT: Conjunctiva not pale, anicteric sclera Neck: Supple, no elevated JVD Heart: Heart sounds 1 and 2 normal, regular rhythm, normal rate, no pedal edema Lungs: Bilateral crackles, scattered wheezes. adequate breath sounds bilater ally. Abdomen: Soft, nondistended, nontender, normal bowel sounds. Extremities: No tenderness, no deformity Skin: Normal skin turgor, no rash, no nodules or ulcers. Neuro: No focal motor deficit. Normal speech. Psychiatry: Normal mood, no agitation. Plan COPD exacerbation Acute respiratory failure with hypoxia Continue bronchodilators Oxygen supplementation IV steroid IV antibiotics. Pulmonary consult Titrate oxygen. Acute diastolic heart failure Chest x-ray also suggest pulmonary vascular congestion. Trial of IV Lasix. Wean oxygen as tolerated Obtain echocardiogram. Hypertension Resume home antihypertensives. Hyperkalemia Patient given a dose of Lokelma. Continue to monitor BMP to follow hyperkalemia Hold losartan for now. Hyperlipidemia Continue statin Acute kidney injury Resolved. Monitor BMP with diuresis. Diabetes type II with hyperglycemia Insulin sliding scale Accu-Chek before every meal and at bedtime Add Lantus/Semglee insulin GI/DVT prophylaxis: Lovenox Advanced directive full code
[2025-05-16] MEDS: FUROSEMIDE 40 MG/4 ML VIAL IV SCH (16:13)
[2025-05-16] MEDS: FAMOTIDINE 20 MG TAB PO SCH (16:13)
[2025-05-16] MEDS: MAGNESIUM OXIDE 400 MG TAB PO SCH (20:52)
[2025-05-16] MEDS: GABAPENTIN 400 MG CAP PO SCH (20:52)
[2025-05-16] MEDS: ATORVASTATIN 40 MG TAB PO SCH (20:52)
[2025-05-16] MEDS ORDERED: HOME MED 1 EA UNK (Magnesium Oxide [Magnesium Oxide] 400 MG Tablet) PO SCH (21:00)
[2025-05-16] MEDS: ALBUTEROL 2.5 MG/3 ML NEB SOL NEB PRN (21:05)
[2025-05-16] MEDS: TRAMADOL HCL 50 MG TAB PO PRN (23:50)
[2025-05-17] MEDS: WATER FOR INJ,STERILE 10 ML ONE (01:18)
[2025-05-17 06:02] LABS: Absolute Lymphocytes (CBC) 2.4 K/uL (0.7-4.9); Hematocrit 44.6 % (36.0-45.0); Hemoglobin 14.8 g/dL (12.0-15.0); MCH 29.9 pg (27.0-35.0); MCHC 33.2 g/dL (32.0-36.0); MCV 90.1 fL (80-100); MPV 10.1 fL (7.6-11.3); Nucleated RBC Absolute Count 0.1 (0-0); Nucleated Red Blood Cells % 0.5 % (0-0); RBC Red Blood Cell Count 4.95 M/uL (3.86-4.86); White Blood Count 16.10 thou/uL (4.3-10.9)
[2025-05-17 06:27] LABS: Anion Gap 5.6 mEq/L (5.0-15.0); BUN Blood Urea Nitrogen 33.0 mg/dL (7-18); Glucose Level 343.0 mg/dL (74-106); Potassium 4.6 mEq/L (3.5-5.1)
[2025-05-17] MEDS ORDERED: LACTOBACILLUS ACIDOPHILUS PO SCH (09:00)
[2025-05-17] MEDS ORDERED: HOME MED 1 EA UNK (Losartan Potassium [Cozaar] 100 MG Tablet) PO SCH (09:00)
[2025-05-17] MEDS: NA CHLORIDE 0.9% 250 ML ONE (09:34)
[2025-05-17] MEDS: ASPIRIN 81 MG CHEWABLE TABLET PO SCH (09:49)
[2025-05-17] MEDS: BUPROPION HCL XL 150 MG TAB PO SCH (09:49)
[2025-05-17] MEDS: AMLODIPINE 2.5 MG TAB PO SCH (09:49)
[2025-05-17] MEDS: LACTOBACILLUS/ACIDOPHILUS TAB PO SCH (09:49)
[2025-05-17] MEDS: CLOPIDOGREL 75 MG TABLET PO SCH (09:49)
[2025-05-17] MEDS: ANASTROZOLE 1 MG TAB PO SCH (09:49)
[2025-05-17] MEDS: INSULIN GLARGINE 100 UNIT/ML SQ SCH (11:45)
[2025-05-17] MEDS: ACETAMINOPHEN 325 MG TABLET PO PRN (11:47)
--- NOTE | 2025-05-17 13:57 | P.PN ---
Subjective Date of Service: 05/17/25 Chief Complaint: SOB Patient reports progressive improvement in his shortness of breath. She is still requiring significant amount of oxygen. She reports intermittent nonproductive cough. No recorded fever. Patient requested for PICC line because he is a hard stick. Physical Examination - Vital Signs Temperature: 97.4 F Blood Pressure: 126/60 Pulse: 97 Respirations: 16 Pulse Ox (%): 95 Assessment And Plan - Plan Physical examination General: Alert and oriented x 3, NAD, Neck: No elevated JVD Heart: Heart sounds 1 and 2 normal, regular rhythm, normal rate, no pedal edema Lungs: Bilateral crackles, scattered wheezes. adequate breath sounds b ilaterally. Abdomen: Soft, nondistended, nontender, normal bowel sounds. Extremities: No tenderness, no deformity Skin: Normal skin turgor, no rash, no nodules or ulcers. Neuro: No focal motor deficit. Normal speech. Psychiatry: Normal mood, no agitation. Plan COPD exacerbation Acute respiratory failure with hypoxia Continue bronchodilators Wean oxygen as tolerated. Continue IV steroid IV antibiotics. PICC line ordered according to patient request. Acute diastolic heart failure Chest x-ray also suggest pulmonary vascular congestion. Continue IV Lasix Echocardiogram is pending. Hypertension Continue home dose amlodipine. Hyperkalemia Patient given a dose of Lokelma 05/16 Hyperkalemia resolved. Continue to hold losartan for now. Hyperlipidemia Continue statin Acute kidney injury Resolved. Monitor BMP with diuresis. Diabetes type II with hyperglycemia Steroid-induced hyperglycemia Insulin sliding scale Accu-Chek before every meal and at bedtime Titrate Semglee. GI/DVT prophylaxis: Lovenox Advanced directive full code
[2025-05-18] MEDS: WATER FOR INJ,STERILE 10 ML ONE (00:49)
[2025-05-18 05:25] LABS: Absolute Lymphocytes (CBC) 1.8 K/uL (0.7-4.9); Hematocrit 42.3 % (36.0-45.0); Hemoglobin 14.0 g/dL (12.0-15.0); MCH 29.8 pg (27.0-35.0); MCHC 33.0 g/dL (32.0-36.0); MCV 90.1 fL (80-100); MPV 9.7 fL (7.6-11.3); Nucleated RBC Absolute Count 0.1 (0-0); Nucleated Red Blood Cells % 0.5 % (0-0); RBC Red Blood Cell Count 4.69 M/uL (3.86-4.86); White Blood Count 15.60 thou/uL (4.3-10.9)
[2025-05-18 05:48] LABS: Anion Gap 6.7 mEq/L (5.0-15.0); BUN Blood Urea Nitrogen 36.0 mg/dL (7-18); Glucose Level 343.0 mg/dL (74-106); Potassium 4.7 mEq/L (3.5-5.1)
--- NOTE | 2025-05-18 11:03 | P.CNS ---
Date of Consult: 05/18/25 Reason for Consult: Shortness of breath Chief Complaint: SOB History of Present Illness: Patient is 70 years of age and alf resident former very heavy smoker 1- 1/2 packs a day quit about 6 months ago now smoking about 10/day has been sick for the past 1 week prior to admission worsening dyspnea cough congestion also has not fever or chills he still very short of breath he is not on any bronchodilators at home no prior history of cardiopulmonary disorders patient is essentially bedbound from her prior stroke uses a wheelchair Allergies pineapple Allergy (Verified 05/03/22 09:00) Anaphylaxis Home Medications: Atorvastatin Calcium [Lipitor] 40 mg PO BEDTIME #30 tab 07/21/21 Clopidogrel Bisulfate [Plavix*] 75 mg PO DAILY #30 tablet 07/21/21 Aspirin 81 mg PO DAILY #30 tab.chew 05/13/22 Magnesium Oxide 400 mg PO BID 06/14/22 Anastrozole 1 mg PO DAILY 12/23/22 Acetaminophen 2 tab PO Q6H PRN 05/16/25 Amlodipine Besylate [Norvasc] 1 tab PO DAILY 05/16/25 Bupropion *Xl* [Wellbutrin XL*] 1 tab PO DAILY 05/16/25 Famotidine [Pepcid*] 1 tab PO DAILY AT SUPPER 05/16/25 Gabapentin [Neurontin*] 400 mg PO BID 05/16/25 Gabapentin [Neurontin*] 800 mg PO BEDTIME 05/16/25 Glimepiride 1 tab PO BID 05/16/25 Lactobacillus Acidophilus 2 tab PO DAILY 05/16/25 Losartan Potassium [Cozaar] 100 mg PO DAILY 05/16/25 Tramadol HCl [Ultram] 1 tab PO Q8H PRN 05/16/25 cloNIDine HCL [Clonidine HCl] 0.1 mg PO BID 05/16/25 - Past Medical/Surgical History Diabetic: Yes -: HTN -: NIDDM -: TIAs -: tobacco abuse -: CVAs -: Breast Cancer -: Bilateral mastectomy -: appendectomy -: splenectomy Psychosocial/ Personal History: Patient lives at home with her daughters. - Family History Father Medical History: Heart disease Notes: Patient was adopted - Social History Smoking Status: Unknown if ever smoked Alcohol use: No CD- Drugs: No Caffeine use: Yes Place of Residence: Assisted Review of Systems 10-point ROS is otherwise unremarkable Respiratory: Cough, Shortness of Breath Physical Examination Temp Pulse Resp BP Pulse Ox 98.0 F 80 16 144/67 H 92 05/18/25 08:00 05/18/25 08:00 05/18/25 08:00 05/18/25 08:00 05/18/25 08:00 General: Alert, Oriented x3 Respiratory: Diminished, Expiratory wheezes Cardiovascular: No edema, Regular rate/rhythm, Normal S1 S2 - Problems (1) COPD exacerbation Current Visit: Yes Status: Acute Plan: Patient is 70 years of age former heavy smoker 1-1/2 packs a day has reduced down to 10 cigarettes a day since patient has been in a alf been having worsening dyspnea over the past week with cough congestion white count is elevated I suspect is from the steroids may have underlying diastolic dysfunction I have added some Lasix changer fixer to low-dose prednisone changer fixer to p.o. levofloxacin prominent interstitial changes on chest x-ray echocardiogram is pending long-acting bronchodilators appears to be hypoxic changer fixer to p.o. levofloxacin discharge planning
[2025-05-18] MEDS: ARFORMOTEROL TARTRATE 15 MCG/2 ML VIAL.NEB NEB SCH (11:24)
[2025-05-18 11:36] LABS: Arterial Blood Carboxyhemoglob 1.8 % (0.0-1.5); Blood Gas Oxyhemoglobin 91.4 % (94.0-97.0); Blood O2 Saturation 92.0 % (92.0-98.5)
[2025-05-18 11:37] LABS: Blood Gas Inspired Oxygen 40.0 %
[2025-05-18] MEDS: DULERA 200/5 (MOMETASONE/FORMOTEROL) INHALER IH SCH (12:12)
[2025-05-18] MEDS: FUROSEMIDE 40 MG TABLET PO SCH (12:12)
--- NOTE | 2025-05-18 17:00 | P.PN ---
Subjective Date of Service: 05/18/25 Chief Complaint: SOB No major changes from yesterday She is still requiring high flow oxygen No recorded fever. Physical Examination - Vital Signs Temperature: 98.1 F Blood Pressure: 148/74 Pulse: 83 Respirations: 16 Pulse Ox (%): 94 Assessment And Plan - Plan Physical examination General: Alert, NAD, Neck: No elevated JVD Heart: Heart sounds 1 and 2 normal, regular rhythm, normal rate, no pedal edema Lungs: Bilateral crackles, bilateral scattered wheezes. adequate breath sounds bilaterally. Abdomen: Soft, nondistended, nontender, normal bowel sounds. Extremities: No tenderness, no deformity Skin: Normal skin turgor, no rash. Neuro: No focal motor deficit. Psychiatry: Normal mood, no agitation. Plan COPD exacerbation Acute respiratory failure with hypoxia Continue bronchodilators Wean oxygen as tolerated. Continue IV steroid IV antibiotics. PICC line ordered according to patient request. Acute diastolic heart failure Chest x-ray also suggest pulmonary vascular congestion. Continue IV Lasix Echocardiogram is pending. Hypertension Continue home dose amlodipine. Hyperkalemia Patient given a dose of Lokelma 05/16 Hyperkalemia resolved. Continue to hold losartan for now. Hyperlipidemia Continue statin Acute kidney injury Resolved. Monitor BMP with diuresis. Diabetes type II with hyperglycemia Steroid-induced hyperglycemia Insulin sliding scale Accu-Chek before every meal and at bedtime Titrate Semglee. 05/[address] Cooper input appreciated Arterial blood gas shows hypoxemia, no CO2 retention Long-acting beta agonist inhaler added. Continue steroid IV antibiotics changed to oral Levaquin per Dr. Cooper. Patient with severe hyperglycemia Titrate Semglee insulin, dose increased to 20 units daily. Continue standing sliding scale for glucose management. Monitor and correct electrolytes as needed. GI/DVT prophylaxis: Lovenox Advanced directive full code
[2025-05-18] MEDS: INSULIN GLARGINE 100 UNIT/ML SQ ONE (17:13)
[2025-05-18] MEDS: ALBUTEROL 2.5 MG/3 ML NEB SOL NEB SCH (19:39)
[2025-05-18] MEDS: IPRATROPIUM BROM 0.5MG/2.5ML NEB SCH (19:39)
[2025-05-18] MEDS: predniSONE 10 MG TAB PO SCH (20:35)
[2025-05-19 05:11] LABS: Absolute Lymphocytes (CBC) 2.6 K/uL (0.7-4.9); Hematocrit 45.2 % (36.0-45.0); Hemoglobin 14.5 g/dL (12.0-15.0); MCH 28.8 pg (27.0-35.0); MCHC 32.1 g/dL (32.0-36.0); MCV 89.6 fL (80-100); MPV 9.6 fL (7.6-11.3); Nucleated RBC Absolute Count 0.1 (0-0); Nucleated Red Blood Cells % 0.8 % (0-0); RBC Red Blood Cell Count 5.04 M/uL (3.86-4.86); White Blood Count 16.30 thou/uL (4.3-10.9)
[2025-05-19 05:25] LABS: Anion Gap 7.4 mEq/L (5.0-15.0); BUN Blood Urea Nitrogen 33.0 mg/dL (7-18); Glucose Level 296.0 mg/dL (74-106); Potassium 4.4 mEq/L (3.5-5.1)
[2025-05-19 07:05] LABS: Magnesium 2.5 mg/dL (1.6-2.4)
[2025-05-19] MEDS: INSULIN GLARGINE 100 UNIT/ML SQ SCH (08:47)
--- NOTE | 2025-05-19 14:44 | P.PN ---
Subjective Date of Service: 05/19/25 Chief Complaint: SOB Patient stated her shortness of breath is improving. Oxygen weaned down to 3 L by nasal cannula today. Patient was seen sitting up in a chair. She denies any chest pain. Physical Examination - Vital Signs Temperature: 97.9 F Blood Pressure: 138/75 Pulse: 86 Respirations: 16 Pulse Ox (%): 93 Assessment And Plan - Plan Physical examination General: Alert, NAD, Neck: No elevated JVD Heart: Heart sounds 1 and 2 normal, regular rhythm, normal rate, no pedal edema Lungs: Bilateral crackles, bilateral scattered wheezes. adequate breath sounds bilaterally. Abdomen: Soft, nondistended, nontender, normal bowel sounds. Extremities: No tenderness, no deformity Skin: Normal skin turgor, no rash. Neuro: No focal motor deficit. Psychiatry: Normal mood, no agitation. Plan COPD exacerbation Acute respiratory failure with hypoxia Continue bronchodilators Wean oxygen as tolerated. Continue IV steroid IV antibiotics. PICC line ordered according to patient request. Acute diastolic heart failure Chest x-ray also suggest pulmonary vascular congestion. Continue IV Lasix Echocardiogram is pending. Hypertension Continue home dose amlodipine. Hyperkalemia Patient given a dose of Lokelma 05/16 Hyperkalemia resolved. Continue to hold losartan for now. Hyperlipidemia Continue statin Acute kidney injury Resolved. Monitor BMP with diuresis. Diabetes type II with hyperglycemia Steroid-induced hyperglycemia Insulin sliding scale Accu-Chek before every meal and at bedtime Titrate Semglee. 05/[address] Cooper input appreciated Arterial blood gas shows hypoxemia, no CO2 retention Long-acting beta agonist inhaler added. Continue steroid IV antibiotics changed to oral Levaquin per Dr. Cooper. Patient with severe hyperglycemia Titrate Semglee insulin, dose increased to 20 units daily. Continue standing sliding scale for glucose management. Monitor and correct electrolytes as needed. 05/19 Respiratory status is improving. Oxygen weaned down to 3 L by nasal cannula. Pulmonary is following and assisting with management Continue steroid Continue oral antibiotic LABA-Brovana Patient still with hyperglycemia. Titrate Semglee insulin, increase dose to 25 units daily Increase activity as tolerated PT consulted GI/DVT prophylaxis: Lovenox Advanced directive full code
[2025-05-20 06:35] LABS: Absolute Lymphocytes (CBC) 3.5 K/uL (0.7-4.9); Hematocrit 45.9 % (36.0-45.0); Hemoglobin 15.1 g/dL (12.0-15.0); MCH 29.6 pg (27.0-35.0); MCHC 32.8 g/dL (32.0-36.0); MCV 90.1 fL (80-100); MPV 9.7 fL (7.6-11.3); Nucleated RBC Absolute Count 0.1 (0-0); Nucleated Red Blood Cells % 0.7 % (0-0); RBC Red Blood Cell Count 5.10 M/uL (3.86-4.86); White Blood Count 12.60 thou/uL (4.3-10.9)
[2025-05-20 06:43] LABS: Anion Gap 4.1 mEq/L (5.0-15.0); BUN Blood Urea Nitrogen 31.0 mg/dL (7-18); Glucose Level 270.0 mg/dL (74-106); Potassium 4.1 mEq/L (3.5-5.1)
--- NOTE | 2025-05-20 08:00 | P.PN ---
Date of Service: 05/20/25 Subjective: weak with PT yesterday denies using O2 at snf afebrile feeling better - asking about when she can go back to snf Physical Exam: GEN: Alert, oriented, NAD CV: Regular rate and rhythm, no edema Pulm:Nonlabored respirations on 3L NC, diminished ABD: soft, nontender, nondistended Neuro: Normal speech, normal affect Problem List: Acute on chronic COPD exacerbation Acute on chronic diastolic CHF Acute respiratory failure with hypoxia secondary to above KIT, resolved Hyperkalemia, resolved Hypertension Hyperlipidemia Hx of CVA Hx of breast cancer s/p mastectomy NIDDM2 with steroid induced hyperglycemia Acute on chronic COPD exacerbation Acute on chronic diastolic CHF Acute respiratory failure with hypoxia secondary to above on admission, presents with worsening shortness of breath, subjective fever, chills, productive cough CXR with mild interstitial edema Dr. Cooper, pulm is following continue oral lasix 40 mg daily On oral levaquin (05/18-) duonebs, prednisone wean oxygen as tolerated Echo ordered to eval EF / stenosis PT eval KIT, resolved Hyperkalemia, resolved s/p lokelma 05/16 monitor renal function, electrolytes Improved Hypertension Hyperlipidemia Hx of CVA Hx of breast cancer s/p mastectomy continue statin, amlodipine, asa 81mg, plavix, anastrozole NIDDM2 with steroid induced hyperglycemia accu-cheks, SSI hyperglycemia secondary to steroids On prednisone semglee 20u daily added 05/19; titrate as needed VTE: Lovenox Code: Full Dispo: back to [place] - detention resident Time Spent Managing Pts Care (In Minutes): 55
--- NOTE | 2025-05-20 13:52 | ECHO ---
HEIGHT: 5 ft 2 in WEIGHT: 246 lb 0 oz DATE OF STUDY: 05/20/[address]: Roland Cooper MD 2-DIMENSIONAL: YES M.MODE: YES DOPPLER: YES COLOR FLOW: YES TDS: PORTABLE: YES DEFINITY: BUBBLE STUDY: DIAGNOSIS: RULE OUT CONGESTIVE HEART FAILURE CARDIAC HISTORY: CATHERIZATION: NO SURGERY: NO PROSTHETIC VALVE: NO PACEMAKER: NO MEASUREMENTS (cm) DIASTOLIC (NORMALS) SYSTOLIC (NORMALS) IVSd 1.2 (0.6-1.2) LA Diam (1.9-4.0) LVEF 60-65% LVIDd 4.7 (3.5-5.7) LVIDs 3.1 (2.0-3.5) %FS 35% LVPWd 1.3 (0.6-1.2) Ao Diam 3.1 (2.0-3.7) 2 DIMENSIONAL ASSESSMENT: RIGHT ATRIUM: NORMAL LEFT ATRIUM: NORMAL RIGHT VENTRICLE: NORMAL LEFT VENTRICLE: NORMAL TRICUSPID VALVE: TRACE TRICUSPID REGURGITATION MITRAL VALVE: NORMAL PULMONIC VALVE: NORMAL AORTIC VALVE: NORMAL PERICARDIAL EFFUSION: NONE AORTIC ROOT: NORMAL LEFT VENTRICULAR WALL MOTION: NORMAL DOPPLER/COLOR FLOW: NORMAL COMMENTS: 1. NORMAL LEFT VENTRICULAR SYSTOLIC FUNCTION, EJECTION FRACTION 60-65%, NORMAL WALL MOTION 2. NORMAL DIASTOLIC FUNCTION 3. NORMAL FILLING PRESSURE TECHNOLOGIST: STAR STANLEY
[2025-05-21 04:15] LABS: Anion Gap 4.2 mEq/L (5.0-15.0); BUN Blood Urea Nitrogen 35.0 mg/dL (7-18); Glucose Level 262.0 mg/dL (74-106); Potassium 4.2 mEq/L (3.5-5.1)
[2025-05-21 08:46] VITALS: BP 121/66; TEMP 98.4
--- NOTE | 2025-05-21 09:19 | P.DS ---
Admission Date: 05/15/25 Discharge Date: 05/21/25 Disposition: TRANSFER TO LONGTERM Discharge Condition: GOOD Reason for Admission: SOB Consultations: Pulmonology - Dr. Cooper Brief History of Present Illness: 70 yo F, PMH: hypertension, diabetes, hyperlipidemia, history of CVA, history of breast cancer s/p mastectomy and COPD Patient who was brought to ER with shortness of breath. Patient has been short of breath and feeling sick for the last few days associated with subjective fever and chills. Cough is productive with mucoid expectoration. Denies any hemoptysis. No nausea vomiting or diarrhea. No sick contacts. Shortness of breath is progressively getting worse and was brought to ER. Patient was assessed in the ER and is admitted for further management of pneumonitis with COPD exacerbation Hospital Course: Problem List: Acute on chronic COPD exacerbation Acute on chronic diastolic CHF Acute respiratory failure with hypoxia secondary to above KIT, resolved Hyperkalemia, resolved Hypertension Hyperlipidemia Hx of CVA Hx of breast cancer s/p mastectomy NIDDM2 with steroid induced hyperglycemia Physician discharge instructions: Patient presented with worsening shortness of breath, subjective fever, chills, productive cough secondary to combination of acute on chronic COPD and CHF exacerbations. Chest xray on admission with diffuse prominence of pulmonary interstitium which likely represents mild interstitial edema. Echo showed with normal EF, diastolic function, trace tricuspid regurgitation. Patient received IV steroids and IV lasix and had improvement of her symptoms. IV steroids/lasix were deescalated to oral prednisone and oral lasix and patient continued to improve daily. Patient also received empiric Levaquin throughout hospitalization to cover possible infection. Patient is to complete 5 more days of oral levaquin on discharge. Patient clinically improved however was still requiring oxygen supplementation. Room air sats were checked and patient was noted to qualify for home oxygen. Patient was feeling better, breathing more comfortably, cough improving, and was deemed stable for discharge. Follow up with Dr. Cooper in 2-4 weeks for further management. Will hold off on prescription for lasix for now. Monitor on COPD medications, and re-evaluate if need lasix in a few weeks. Medications: Prednisone 10mg twice daily x 5 days Levaquin 750 mg daily x 5 days Dulera inhaler albuterol as needed for wheeze/shortness of breath Follow up: PCP 3-[address] Allison in 2-4 weeks Please call to schedule / confirm appointments Physical Exam: GEN: Alert, oriented, NAD CV: Regular rate and rhythm, no edema Pulm:Nonlabored respirations on 3L NC, clear bilaterally ABD: soft, nontender, nondistended Neuro: Normal speech, normal affect Vital Signs/Physical Exam: Temp Pulse Resp BP Pulse Ox 98.4 F 92 H 20 121/66 92 05/21/25 08:00 05/21/25 08:00 05/21/25 08:00 05/21/25 08:00 05/21/25 08:00 Laboratory Data at Discharge: WBC 12.60 thou/uL (4.3-10.9) H 05/20/25 05:50 Hgb 15.1 g/dL (12.0-15.0) H 05/20/25 05:50 Hct 45.9 % (36.0-45.0) H 05/20/25 05:50 Plt Count 421 thou/uL (152-406) H 05/20/25 05:50 PT 12.9 SECONDS (10-13.0) 05/15/25 17:50 INR 1.15 05/15/25 17:50 APTT 33.6 SECONDS (27.2-37.4) 05/15/25 17:50 Sodium 138 mEq/L (136-145) 05/21/25 03:45 Potassium 4.2 mEq/L (3.5-5.1) 05/21/25 03:45 BUN 35 mg/dL (7-18) H 05/21/25 03:45 Creatinine 0.95 mg/dL (0.55-1.02) 05/21/25 03:45 Glucose 262 mg/dL (74-106) H 05/21/25 03:45 Phosphorus 3.1 mg/dL (2.5-4.9) 05/21/25 03:45 Magnesium 2.5 mg/dL (1.6-2.4) H 05/19/25 04:13 Total Bilirubin 0.3 mg/dL (0.2-1.0) 05/16/25 07:24 AST 87 U/L (15-37) H 05/16/25 07:24 ALT 37 U/L (13-56) 05/16/25 07:24 Alkaline Phosphatase 93 U/L (45-117) 05/16/25 07:24 Home Medications: Atorvastatin Calcium [Lipitor] 40 mg PO BEDTIME #30 tab 07/21/21 Clopidogrel Bisulfate [Plavix*] 75 mg PO DAILY #30 tablet 07/21/21 Aspirin 81 mg PO DAILY #30 tab.chew 05/13/22 Magnesium Oxide 400 mg PO BID 06/14/22 Anastrozole 1 mg PO DAILY 12/23/22 Acetaminophen 2 tab PO Q6H PRN 05/16/25 Amlodipine Besylate [Norvasc] 1 tab PO DAILY 05/16/25 Bupropion *Xl* [Wellbutrin XL*] 1 tab PO DAILY 05/16/25 Famotidine [Pepcid*] 1 tab PO DAILY AT SUPPER 05/16/25 Gabapentin [Neurontin*] 400 mg PO BID 05/16/25 Gabapentin [Neurontin*] 800 mg PO BEDTIME 05/16/25 Glimepiride 1 tab PO BID 05/16/25 Lactobacillus Acidophilus 2 tab PO DAILY 05/16/25 Losartan Potassium [Cozaar] 100 mg PO DAILY 05/16/25 Tramadol HCl [Ultram] 1 tab PO Q8H PRN 05/16/25 cloNIDine HCL [Clonidine HCl] 0.1 mg PO BID 05/16/25 Albuterol Neb [Proventil 0.083% Neb Soln] 2.5 mg NEB [id number] #0 amp 05/21/25 Mometasone/Formoterol [Dulera 200 Mcg/5 Mcg Inhaler] 2 puff IH BID #0 inhaler 05/21/25 levoFLOXacin [Levaquin*] 750 mg PO DAILY 5 Days tab 05/21/25 predniSONE [Deltasone*] 10 mg PO BID 4 Days tab 05/21/25 New Medications: Albuterol Neb [Proventil 0.083% Neb Soln] 2.5 mg NEB [id number] #0 amp predniSONE [Deltasone*] 10 mg PO BID 4 Days tab Mometasone/Formoterol [Dulera 200 Mcg/5 Mcg Inhaler] 2 puff IH BID #0 inhaler levoFLOXacin [Levaquin*] 750 mg PO DAILY 5 Days tab Physician Discharge Instructions: Physician discharge instructions: Patient presented with worsening shortness of breath, subjective fever, chills, productive cough secondary to combination of acute on chronic COPD and CHF exacerbations. Chest xray on admission with diffuse prominence of pulmonary interstitium which likely represents mild interstitial edema. Echo showed with normal EF, diastolic function, trace tricuspid regurgitation. Patient received IV steroids and IV lasix and had improvement of her symptoms. IV steroids/lasix were deescalated to oral prednisone and oral lasix and patient continued to improve daily. Patient also received empiric Levaquin throughout hospitalization to cover possible infection. Patient is to complete 5 more days of oral levaquin on discharge. Patient clinically improved however was still requiring oxygen supplementation. Room air sats were checked and patient was noted to qualify for home oxygen. Patient was feeling better, breathing more comfortably, cough improving, and was deemed stable for discharge. Follow up with Dr. Cooper in 2-4 weeks for further management. Will hold off on prescription for lasix for now. Monitor on COPD medications, and re-evaluate if need lasix in a few weeks. Medications: Prednisone 10mg twice daily x 5 days Levaquin 750 mg daily x 5 days Dulera inhaler albuterol as needed for wheeze/shortness of breath Follow up: PCP 3-[address] Cooper in 2-4 weeks Please call to schedule / confirm appointments Followup: Roland Cooper MD [ACTIVE - CAN ADMIT] - 1-2 Weeks NONE,NONE [Primary Care Provider] - Time spent managing pt's care (in minutes): 45
[2025-05-21 09:47] VITALS: O2SAT 93
== END 2025-05-21 14:19 | DRG 291 ==
LOC: ER 16:49 → ERHOLD 19:25 → 2ND 20:28
PROVIDERS: ADMIT Family Medicine; ATTEND Hospitalist
PROC: 02HV33Z Insertion of Infusion Device into Superior Vena Cava, Percutaneous Approach (ICD-10-PCS; principal; 2025-05-17)
PROC: 4A033R1 Measurement of Arterial Saturation, Peripheral, Percutaneous Approach (ICD-10-PCS; 2025-05-18)
DX: I13.0 Hypertensive heart and chronic kidney disease with heart failure and stage 1 through stage 4 chronic kidney disease, or unspecified chronic kidney disease (principal); I50.33 Acute on chronic diastolic (congestive) heart failure; J96.01 Acute respiratory failure with hypoxia; J18.9 Pneumonia, unspecified organism; J44.1 Chronic obstructive pulmonary disease with (acute) exacerbation; N17.9 Acute kidney failure, unspecified; J44.0 Chronic obstructive pulmonary disease with (acute) lower respiratory infection; N18.2 Chronic kidney disease, stage 2 (mild); E11.22 Type 2 diabetes mellitus with diabetic chronic kidney disease; E11.65 Type 2 diabetes mellitus with hyperglycemia; E87.5 Hyperkalemia; E78.00 Pure hypercholesterolemia, unspecified; Z85.3 Personal history of malignant neoplasm of breast; Z86.73 Personal history of transient ischemic attack (TIA), and cerebral infarction without residual deficits; Z79.02 Long term (current) use of antithrombotics/antiplatelets; Z79.82 Long term (current) use of aspirin; Z90.13 Acquired absence of bilateral breasts and nipples; Z79.84 Long term (current) use of oral hypoglycemic drugs; Z79.899 Other long term (current) drug therapy; Z90.49 Acquired absence of other specified parts of digestive tract; Z90.81 Acquired absence of spleen; Z87.891 Personal history of nicotine dependence; Z11.52 Encounter for screening for COVID-19
CPT/HCPCS: 36415; 36600; 71045; 80048; 80053; 82805; 82947; 83605; 83735; 83880; 84100; 84132; 84484; 85025; 85610; 85730; 87040; 87428; 93005; 93306; 94010; 94640; 94760; 96365; 96375; 97110; 97161; 97530; 99285; J0456; J0696; J1650; J1815; J1938; J2919; J3475; J3535; J7040; J7050; J7512; J7605; J7613; J7614; J7644